=== PATIENT | female | born 1935 | race Caucasian/White ===

== ENCOUNTER 2016-11-09 15:14 | Emergency (ER) | payer MEDICARE, BC ==
[2016-11-09] MEDS ORDERED: Sodium Chloride 0.9% 10 ML Syringe FLUSH PRN (15:50)
[2016-11-09] MEDS ORDERED: Ondansetron 4 MG/2 ML SDV IVPUSH ONE (15:51)
[2016-11-09] MEDS ORDERED: HYDROmorphone 0.5 MG/0.5 ML Syringe IVPUSH ONE (15:56)
--- NOTE | 2016-11-09 15:56 | EDM.PDOC ---
ED HPI GI/ABDOMINAL - General Chief Complaint: Genitourinary Problem Stated Complaint: POSS UTI Time Seen by Provider: 11/09/16 15:33 Source of Information: Reports: Patient History Limitations: Reports: No limitations - History of Present Illness INITIAL COMMENTS - FREE TEXT/NARRATIVE: The patient presents with dysuria and urinary frequency for 2 days. She also has some abdominal pain. She did not get much rest the past couple of days. She has some nausea with it. She has no fever or chills. She has no chest pain , shortness of breath or diarrhea. Timing/Duration: Reports: Day(s): (2) Location: flank (right) Quality: Reports: burning Severity: moderate Context: Denies: sick contact, bad/questionable food, out of country travel, recent surgery, recent trauma, lifting, activity/exercise Associated Symptoms (-Female): Reports: nausea/vomiting. Denies: chest pain, back pain, shoulder pain, diarrhea, fever/chills, loss of appetite - Related Data Allergies/ADRs: Allergies Allergy/AdvReac Type Severity Reaction Status Date / Time No Known Drug Allergies Allergy Other Verified 10/23/15 11:04 amoxicillin AdvReac Nausea and Verified 10/19/15 15:26 Vomiting amoxicillin trihydrate AdvReac Nausea and Verified 10/20/15 07:06 [From Augmentin] Vomiting ciprofloxacin AdvReac Nausea and Verified 10/20/15 07:06 Vomiting potassium clavulanate AdvReac Nausea and Verified 10/20/15 07:06 [From Augmentin] Vomiting Sulfa (Sulfonamide AdvReac Nausea and Verified 10/20/15 07:06 Antibiotics) Vomiting Home Meds: Home Meds Docusate Sodium [Colace] 200 mg PO BID 09/12/14 [History] Gabapentin 600 mg PO BID 09/12/14 [History] Metoprolol Succinate [Toprol XL] 25 mg PO DAILY 09/12/14 [History] Polyethylene Glycol 3350 [MiraLAX] 17 gm PO BID PRN 02/18/15 [History] traMADol [Ultram] 50 mg PO Q6H PRN 04/29/15 [History] Cholecalciferol (Vitamin D3) [Vitamin D3] 1,000 unit PO DAILY 08/10/15 [History] Simvastatin 20 mg PO BEDTIME 08/10/15 [History] Valsartan [Diovan] 320 mg PO DAILY 08/10/15 [History] Vit C/Vit E Ac/Lut/Mineral 1 [Prosight with Lutein] 1 each PO DAILY 08/10/15 [ History] amLODIPine Besylate [Amlodipine Besylate] 10 mg PO DAILY 08/10/15 [History] metFORMIN [Glucophage] 500 mg PO DAILY 08/10/15 [History] traZODone 200 mg PO DAILY 08/10/15 [History] Aspirin 81 mg PO DAILY 10/19/15 [History] Levothyroxine [Synthroid] 50 mcg PO DAILY 10/19/15 [History] Dicyclomine HCl [Bentyl] 20 mg PO Q6HR 10/20/15 [History] Nitrofurantoin [place]/Macrocryst [Macrobid] 100 mg PO BID #10 cap 11/09/16 [Rx] Past Medical History HEENT History: Reports: None Cardiovascular History: Reports: High cholesterol, Hypertension Respiratory History: Reports: PE Gastrointestinal History: Reports: Chronic constipation, Diverticulosis, GERD, Hemorrhoids, Irritable bowel syndrome Other Gastrointestinal History: gastric ulcer, abdominal pain, lapartomy Other Genitourinary History: cystitis [employer] History: Reports: Musculoskeletal History: Reports: Osteoarthritis Psychiatric History: Reports: Depression Endocrine/Metabolic History: Reports: Diabetes, type II, Hypothyroidism, Obesity /BMI 30+ Hematologic History: Reports: Anemia Dermatologic History: Reports: Seborrheic dermatitis - Infectious Disease History Infectious Disease History: Reports: Rheumatic Fever - Past Surgical History HEENT Surgical History: Reports: Tonsillectomy Other Musculoskeletal Surgeries/Procedures:: osteoarthritis to L knee, R knee pain, R knee arthroscopy, R total knee, L total knee, hip surgery Social & Family History - Family History Cardiac: Reports: [place] Other Cardiac Family History: Mother OBGYN: Reports: Endocrine/Metabolic: Reports: Diabetes, type II Oncologic: Reports: Colon - Tobacco Use Smoking Status *Q: Never Smoker Second Hand Smoke Exposure: No - Caffeine Use Caffeine Use: Reports: Coffee, Soda, Tea Other Caffeine Use: coffee in the morning - Alcohol Use Days Per Week of Alcohol Use: 0 Number of Drinks Per Day: 0 Total Drinks Per Week: 0 - Recreational Drug Use Recreational Drug Use: No Drug Use in Last 12 Months: No ED ROS GENERAL - Review of Systems Review Of Systems: See Below Constitutional: Reports: no symptoms HEENT: Reports: No symptoms Respiratory: Reports: No Symptoms Cardiovascular: Reports: No symptoms Endocrine: Reports: no symptoms GI/Abdominal: Reports: Abdominal pain, Nausea. Denies: Vomiting : Reports: dysuria, flank pain (right), frequency Musculoskeletal: Reports: no symptoms Skin: Reports: no symptoms Neurological: Reports: No Symptoms ED EXAM, GI/ABD - Physical Exam Exam: See Below Exam Limited By: No limitations General Appearance: alert, no apparent distress Ears: normal external exam Nose: normal inspection Head: atraumatic, normocephalic Neck: normal inspection Respiratory/Chest: no respiratory distress, lungs clear, normal breath sounds Cardiovascular: regular rate, rhythm, no edema, systolic murmur GI/Abdominal: normal bowel sounds, soft, tenderness (Mild to moderate pain to the right abdomen) Back Exam: normal inspection Extremities: normal inspection Course - Vital Signs Last Recorded V/S: Last Vital Signs Temp 98.0 F 11/09/16 15:22 Pulse 69 11/09/16 16:21 Resp 16 11/09/16 16:21 BP 207/81 H 11/09/16 16:21 Pulse Ox 92 L 11/09/16 16:21 - Orders/Labs/Meds Orders: Active Orders 24 hr Category Date Time Status Peripheral IV Care [RC] . DIRECTED Care 11/09/16 15:50 Active CULTURE URINE [RM] Stat Lab 11/09/16 17:07 Uncollected Sodium Chloride 0.9% [Normal Saline] 1,000 ml Med 11/09/16 16:00 Active IV ASDIRECTED Sodium Chloride 0.9% [Saline Flush] Med 11/09/16 15:50 Active 10 ml FLUSH ASDIRECTED PRN Peripheral IV Insertion Adult [OM.PC] Stat Oth 11/09/16 15:50 Ordered Medication Orders Sodium Chloride (Normal Saline) 1,000 mls @ 100 mls/hr IV ASDIRECTED SHREYA Last Admin: 11/09/16 16:07 Dose: 100 mls/hr Sodium Chloride (Saline Flush) 10 ml FLUSH ASDIRECTED PRN PRN Reason: Keep Vein Open Last Admin: 11/09/16 16:10 Dose: 10 ml Labs: Laboratory Tests 11/09/16 11/09/16 11/09/16 Range/Units 15:41 16:00 16:00 WBC 6.28 (3.98-10.04) K/mm3 RBC 4.26 (3.98-5.22) M/mm3 Hgb 12.9 (11.2-15.7) gm/L Hct 41.5 (34.1-44.9) % MCV 97.4 H (79.4-94.8) fl MCH 30.3 (25.6-32.2) pg MCHC 31.1 L (32.2-35.5) g/dl RDW Std Deviation 48.6 H (36.4-46.3) fL Plt Count 218 (182-369) K/mm3 MPV 9.9 (9.4-12.3) fl Neut % (Auto) 71.9 H (34.0-71.1) % Lymph % (Auto) 18.0 L (19.3-51.7) % [place] % (Auto) 7.6 (4.7-12.5) % Eos % (Auto) 1.9 (0.7-5.8) Baso % (Auto) 0.3 (0.1-1.2) % Neut # (Auto) 4.51 (1.56-6.13) K/mm3 Lymph # (Auto) 1.13 L (1.18-3.74) K/mm3 [place] # (Auto) 0.48 H (0.24-0.36) K/mm3 Eos # (Auto) 0.12 (0.04-0.36) K/mm3 Baso # (Auto) 0.02 (0.01-0.08) K/mm3 Sodium 139 (136-145) mEq/L Potassium 4.1 (3.5-5.1) mEq/L Chloride 103 (98-107) mEq/L Carbon Dioxide 30 (21-32) mEq/L Anion Gap 10.1 (5-15) BUN 11 (7-18) mg/dL Creatinine 1.0 (0.55-1.02) mg/dL Est Cr Clr Drug Dosing 30.62 mL/min Estimated GFR (MDRD) 53 (>60) mL/min BUN/Creatinine Ratio 11.0 L (14-18) Glucose 152 H (83-115) mg/dL Calcium 8.9 (8.5-10.1) mg/dL Total Bilirubin 0.6 (0.2-1.0) mg/dL AST 16 (15-37) U/L ALT 13 L (14-59) U/L Alkaline Phosphatase 98 (46-116) U/L Total Protein 6.7 (6.4-8.2) g/dl Albumin 3.5 (3.4-5.0) g/dl Globulin 3.2 gm/dL Albumin/Globulin Ratio 1.1 (1-2) Lipase 132 (73-393) U/L Urine Color Todd H (Yellow) Urine Appearance Clear (Clear) Urine pH 7.0 (5.0-8.0) Ur Specific [place] 1.020 (1.005-1.030) Urine Protein 3+ H (Negative) Urine Glucose (UA) Trace H (Negative) Urine Ketones Negative (Negative) Urine Occult Blood Negative (Negative) Urine Nitrite Positive H (Negative) Urine Bilirubin Negative (Negative) Urine Urobilinogen 1.0 (0.2-1.0) Ur Leukocyte Esterase Negative (Negative) Urine RBC 0-5 (0-5) /hpf Urine WBC 0-5 (0-5) /hpf Ur Epithelial Cells Not Reportable Ur Squamous Epith Cells 0-5 (0-5) /hpf Urine Bacteria Few (FEW) /hpf Urine Mucus Not seen (FEW) /hpf Meds: Medications Generic Name Dose Route Start Last Admin Trade Name Freq PRN Reason Stop Dose Admin Sodium Chloride 1,000 mls @ 100 mls/hr 11/09/16 16:00 11/09/16 16:07 Normal Saline IV 100 mls/hr ASDIRECTED SHREYA Administration Sodium Chloride 10 ml 11/09/16 15:50 11/09/16 16:10 Saline Flush FLUSH 10 ml ASDIRECTED PRN Administration Keep Vein Open Discontinued Medications Generic Name Dose Route Start Last Admin Trade Name Freq PRN Reason Stop Dose Admin Hydromorphone HCl 0.5 mg 11/09/16 15:56 11/09/16 16:11 Dilaudid IVPUSH 11/09/16 15:57 0.5 mg ONETIME ONE Administration Metoprolol Tartrate 5 mg 11/09/16 15:57 11/09/16 16:13 Lopressor IVPUSH 11/09/16 15:58 5 mg ONETIME ONE Administration Ondansetron HCl 4 mg 11/09/16 15:51 04/29/17 16:08 Zofran IVPUSH 11/09/16 15:52 4 mg ONETIME ONE Administration - Re-Assessments/Exams Free Text/Narrative Re-Assessment/Exam: 11/09/16 15:56 I ordered an IV NS at 100mL/hr, zofran 4mg IV, labs and UA. 11/09/16 17:07 Her BP was high so I ordered some lopressor 5mg IV and some dilaudid 0.5mg IV for the pain. Her CBC and CMP look good. Her UA has nitrite and bacteria. I will get a culture. She has been taking pyridium at home. I will put her on macrobid 2 times per day for 5 days. Departure - Departure Time of Disposition: 17:10 Disposition: Home, Self-Care 01 Condition: good Clinical Impression: UTI, Urinary tract infectious disease Hypertension Qualifiers: Hypertension type: essential hypertension Qualified Code(s): I10 - Essential ( primary) hypertension Prescriptions: Nitrofurantoin [place]/Macrocryst [Macrobid] 100 mg PO BID #10 cap Referrals: Germain Schaeffer MD [Primary Care Provider] - 1 Week Forms: ED Department Discharge Additional Instructions: Take the macrobid twice per day for 5 days. Take your other medication as prescribed. Please return if you are worse. - My Orders Last 24 Hours: My Active Orders 11/09/16 15:50 Peripheral IV Care [RC] . DIRECTED Sodium Chloride 0.9% [Saline Flush] 10 ml FLUSH ASDIRECTED PRN Peripheral IV Insertion Adult [OM.PC] Stat 11/09/16 16:00 Sodium Chloride 0.9% [Normal Saline] 1,000 ml IV ASDIRECTED 11/09/16 17:07 CULTURE URINE [RM] Stat - Assessment/Plan Last 24 Hours: My Active Orders 11/09/16 15:50 Peripheral IV Care [RC] . DIRECTED Sodium Chloride 0.9% [Saline Flush] 10 ml FLUSH ASDIRECTED PRN Peripheral IV Insertion Adult [OM.PC] Stat 11/09/16 16:00 Sodium Chloride 0.9% [Normal Saline] 1,000 ml IV ASDIRECTED 11/09/16 17:07 CULTURE URINE [RM] Stat
[2016-11-09] MEDS ORDERED: Metoprolol Tartrate 5 MG/5 ML SDV IVPUSH ONE (15:57)
[2016-11-09] MEDS ORDERED: Sodium Chloride 0.9% 1,000 ML IV SCH (16:00)
[2016-11-09 16:51] VITALS: BP 207/81
== END 2016-11-09 17:46 | disposition home or self-care (01) ==
LOC: JD.ED 15:14
DX: N39.0 Urinary tract infection, site not specified (principal); I10 Essential (primary) hypertension; E78.00 Pure hypercholesterolemia, unspecified; K21.9 Gastro-esophageal reflux disease without esophagitis; M19.90 Unspecified osteoarthritis, unspecified site; F32.9 Major depressive disorder, single episode, unspecified; E11.9 Type 2 diabetes mellitus without complications; E03.9 Hypothyroidism, unspecified; E66.9 Obesity, unspecified; D64.9 Anemia, unspecified; Z98.890 Other specified postprocedural states; Z88.1 Allergy status to other antibiotic agents; Z88.8 Allergy status to other drugs, medicaments and biological substances; Z88.2 Allergy status to sulfonamides; Z79.899 Other long term (current) drug therapy; Z79.84 Long term (current) use of oral hypoglycemic drugs; Z79.82 Long term (current) use of aspirin
CPT/HCPCS: 36415; 80053; 81001; 83690; 85025; 87086; 96361; 96374; 96375; 99284; J1170; J2405; J7040; J7050; P9612; J3490

== ENCOUNTER 2016-12-25 14:29 | Inpatient (IN) | payer MEDICARE, BC ==
[2016-12-25] MEDS ORDERED: Sodium Chloride 0.9% 10 ML Syringe FLUSH PRN (15:41)
[2016-12-25] MEDS ORDERED: Metoprolol Tartrate 5 MG/5 ML SDV IVPUSH ONE (15:42)
--- NOTE | 2016-12-25 15:42 | EDM.PDOC ---
ED HPI GENERAL MEDICAL PROBLEM - General Chief Complaint: Genitourinary Problem Stated Complaint: CONSTANT URINATION Time Seen by Provider: 12/25/16 15:03 Source of Information: Reports: Patient History Limitations: Reports: No Limitations - History of Present Illness INITIAL COMMENTS - FREE TEXT/NARRATIVE: 81-year-old female presents for evaluation and treatment of dysuria and increased urinary frequency. She reports that the symptoms have been going on for the last few days. She denies any fevers or vomiting. Reports some nausea. She denies any abdominal pain or flank pain. Patient reports some chronic back pain that is worse after prolonged standing. Upon triage patient was found to be hypertensive with a systolic over the 220s. Patient reports that she has not taken her blood pressure medications today. She was also found to be hypoxic with oxygen sats ranging in the upper 70s to 90 on room air. Patient reports that she is normally on oxygen approximately 3 or 4 L at night but none during the day. She states she has been feeling more short of breath lately. Feels that the shortness of breath is worse with activity. She has also noticed swelling in her lower legs and increase in her weight. Reports a minor nonproductive cough. Denies any chest pain. She is also complaining of a decreased appetite. Lower Abdomen Pain Score (Numeric/FACES): 10 - Related Data Allergies Allergy/AdvReac Type Severity Reaction Status Date / Time amoxicillin AdvReac Nausea and Verified 12/25/16 14:47 Vomiting amoxicillin trihydrate AdvReac Nausea and Verified 12/25/16 14:47 [From Augmentin] Vomiting ciprofloxacin AdvReac Nausea and Verified 12/25/16 14:47 Vomiting potassium clavulanate AdvReac Nausea and Verified 12/25/16 14:47 [From Augmentin] Vomiting Sulfa (Sulfonamide AdvReac Nausea and Verified 12/25/16 14:47 Antibiotics) Vomiting Home Meds: Home Meds Docusate Sodium [Colace] 200 mg PO BID 09/12/14 [History] Gabapentin 600 mg PO BID 09/12/14 [History] Metoprolol Succinate [Toprol XL] 25 mg PO DAILY 09/12/14 [History] Polyethylene Glycol 3350 [MiraLAX] 17 gm PO BID PRN 02/18/15 [History] traMADol [Ultram] 50 mg PO Q6H PRN 04/29/15 [History] Cholecalciferol (Vitamin D3) [Vitamin D3] 1,000 unit PO DAILY 08/10/15 [History] Simvastatin 20 mg PO BEDTIME 08/10/15 [History] Valsartan [Diovan] 320 mg PO DAILY 08/10/15 [History] Vit C/Vit E Ac/Lut/Mineral 1 [Prosight with Lutein] 1 each PO DAILY 08/10/15 [ History] amLODIPine Besylate [Amlodipine Besylate] 10 mg PO DAILY 08/10/15 [History] metFORMIN [Glucophage] 500 mg PO DAILY 08/10/15 [History] traZODone 200 mg PO DAILY 08/10/15 [History] Aspirin 81 mg PO DAILY 10/19/15 [History] Levothyroxine [Synthroid] 50 mcg PO DAILY 10/19/15 [History] Dicyclomine HCl [Bentyl] 20 mg PO Q6HR 10/20/15 [History] Nitrofurantoin [place]/Macrocryst [Macrobid] 100 mg PO BID #10 cap 11/09/16 [Rx] Past Medical History HEENT History: Reports: None Cardiovascular History: Reports: High Cholesterol, Hypertension Respiratory History: Reports: PE Gastrointestinal History: Reports: Chronic Constipation, Diverticulosis, GERD, Hemorrhoids, Irritable Bowel Syndrome Other Gastrointestinal History: gastric ulcer, abdominal pain, lapartomy Other Genitourinary History: cystitis 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: Musculoskeletal History: Reports: Osteoarthritis Psychiatric History: Reports: Depression Endocrine/Metabolic History: Reports: Diabetes, Type II, Hypothyroidism, Obesity /BMI 30+ Hematologic History: Reports: Anemia Dermatologic History: Reports: Seborrheic Dermatitis - Infectious Disease History Infectious Disease History: Reports: Rheumatic Fever - Past Surgical History HEENT Surgical History: Reports: Tonsillectomy Other Musculoskeletal Surgeries/Procedures:: osteoarthritis to L knee, R knee pain, R knee arthroscopy, R total knee, L total knee, hip surgery Social & Family History - Family History Cardiac: Reports: MA Other Cardiac Family History: Mother OBGYN: Reports: Endocrine/Metabolic: Reports: Diabetes, type II Oncologic: Reports: Colon - Tobacco Use Smoking Status *Q: Never Smoker Second Hand Smoke Exposure: No - Caffeine Use Caffeine Use: Reports: Soda Other Caffeine Use: coffee in the morning - Alcohol Use Days Per Week of Alcohol Use: 0 Number of Drinks Per Day: 0 Total Drinks Per Week: 0 - Recreational Drug Use Recreational Drug Use: No Drug Use in Last 12 Months: No ED ROS GENERAL - Review of Systems Review Of Systems: See Below Constitutional: Reports: Decreased Appetite, Weight Gain. Denies: Fever Respiratory: Reports: Shortness of Breath, Cough Cardiovascular: Reports: Edema. Denies: Chest Pain GI/Abdominal: Reports: Nausea. Denies: Abdominal Pain, Vomiting : Reports: Dysuria, Frequency. Denies: Flank Pain, Hematuria Musculoskeletal: Reports: Back Pain (chronic, no change) ED EXAM, RENAL/ - Physical Exam Exam: See Below Exam Limited By: No Limitations General Appearance: Alert, WD/WN, No Apparent Distress, Obese Ears: Normal External Exam Nose: Normal Inspection Throat/Mouth: Normal Inspection, Normal Voice, No Airway Compromise, Perioral Cyanosis Respiratory/Chest: Respiratory Distress (tachypnea), Crackles (bilateral lung bases) Cardiovascular: Normal Peripheral Pulses, Regular Rate, Rhythm, No Murmur, Other (2+ nonpitting edema) Back Exam: Normal Inspection. No: CVA Tenderness (L), CVA Tenderness (R) Neurological: Alert, Oriented, Normal Cognition Psychiatric: Normal Affect, Normal Mood Skin Exam: Warm, Dry, Normal Color EKG INTERPRETATION EKG Date: 12/25/16 Time: 16:55 Rhythm: NSR Rate (Beats/Min): 62 Furlong: Normal P-Wave: Present QRS: Normal ST-T: Normal QT: Prolonged EKG Interpretation Comments: NSR at 62 bpm. first degree AV block. No acute St segment changes. Prolonged QTc. Reviewed by myself and Dr. Khoury. Course - Vital Signs Last Recorded V/S: Last Vital Signs Temp 37.3 C 12/26/16 08:00 Pulse 74 12/26/16 11:00 Resp 16 12/26/16 08:00 BP 126/57 L 12/26/16 11:00 Pulse Ox 94 L 12/26/16 08:00 - Orders/Labs/Meds Orders: Active Orders 24 hr Category Date Time Status CULTURE URINE [RM] Stat Lab 12/25/16 15:50 Results Sodium Chloride 0.9% [Saline Flush] Med 12/25/16 15:41 Active 10 ml FLUSH ASDIRECTED PRN Peripheral IV Insertion Adult [OM.PC] Routine Oth 12/25/16 15:42 Ordered Medication Orders Acetaminophen (Tylenol) 650 mg PO Q4H PRN PRN Reason: Pain (Mild 1-3)/fever Last Admin: 12/25/16 21:27 Dose: 650 mg Hydrocodone Bitart/Acetaminophen ([place] 325-5 Mg) 1 tab PO Q4H PRN PRN Reason: Pain (moderate 4-6) Albuterol/Ipratropium (Duoneb 3.0-0.5 Mg/3 Ml) 3 ml NEB Q4H PRN PRN Reason: Shortness Of Breath/wheezing Amlodipine Besylate (Norvasc) 10 mg PO DAILY [facility] Last Admin: 12/26/16 10:10 Dose: Not Given Aspirin (Aspirin) 81 mg PO DAILY [facility] Last Admin: 12/26/16 09:58 Dose: 81 mg Bisacodyl (Dulcolax) 5 mg PO DAILY PRN PRN Reason: Constipation Cholecalciferol (Vitamin D3) 1,000 units PO DAILY [facility] Last Admin: 12/26/16 10:10 Dose: Not Given Dextrose/Water (Dextrose 50% In Water) 50 ml IVPUSH ASDIRECTED PRN PRN Reason: Hypoglycemia Docusate Sodium (Colace) 100 mg PO BID PRN PRN Reason: Constipation Docusate Sodium (Colace) 200 mg PO BID [facility] Last Admin: 12/26/16 10:09 Dose: Admin: 12/25/16 20:22 Dose: 200 mg Gabapentin (Neurontin) 600 mg PO BID [facility] Last Admin: 12/26/16 10:09 Dose: Admin: 12/25/16 20:22 Dose: 600 mg Heparin Sodium (Porcine) (Heparin Sodium) 5,000 units SUBCUT Q8H [facility] Last Admin: 12/26/16 10:44 Dose: 5,000 units Hydralazine HCl (Apresoline) 10 mg IVPUSH Q4H PRN PRN Reason: Hypertension Last Admin: 12/25/16 19:29 Dose: 10 mg Promethazine HCl 12.5 mg/ (Sodium Chloride) 50.5 mls @ 100 mls/hr IV Q6H PRN PRN Reason: Nausea/Vomiting Furosemide 100 mg/ Sodium (Chloride) 100 mls @ 5 mls/hr IV TITRATE [facility] PRN Reason: Protocol Last Admin: 12/25/16 20:07 Dose: 5 mls/hr Ceftriaxone Sodium 1 gm/ (Sodium Chloride) 100 mls @ 200 mls/hr IV Q24H SHREYA Last Admin: 12/26/16 09:59 Dose: 200 mls/hr Dopamine HCl/Dextrose (Dopamine In D5w 400 Mg/250 Ml) 400 mg in 250 mls @ 7.892 mls/hr IV TITRATE SHREYA; 2 MCG/KG/MIN PRN Reason: Protocol Last Titration: 12/26/16 10:50 Dose: 5 mcg/kg/min, 19.729 mls/hr Titration: 12/26/16 09:45 Dose: 7 mcg/kg/min, 27.621 mls/hr Titration: 12/26/16 08:49 Dose: 10 mcg/kg/min, 39.459 mls/hr Titration: 12/26/16 08:04 Dose: 7 mcg/kg/min, 27.621 mls/hr Titration: 12/26/16 06:50 Dose: 4 mcg/kg/min, 15.783 mls/hr Titration: 12/26/16 05:51 Dose: 2 mcg/kg/min, 7.892 mls/hr Admin: 12/26/16 05:24 Dose: 5 mcg/kg/min, 19.729 mls/hr Insulin Aspart (Novolog) 0 unit SUBCUT BID SHREYA PRN Reason: Protocol Last Admin: 12/26/16 10:44 Dose: 4 units Admin: 12/25/16 22:36 Dose: 2 units Admin: 12/25/16 19:48 Dose: Levothyroxine Sodium (Synthroid) 50 mcg PO ACBRK [facility] Last Admin: 12/26/16 05:45 Dose: Not Given Lorazepam (Ativan) 0.5 mg IV Q6H PRN PRN Reason: Anxiety Losartan Potassium (Cozaar) 150 mg PO DAILY [facility] Last Admin: 12/26/16 10:09 Dose: Not Given Magnesium Sulfate (Pharmacy To Dose - Magnesium Replacement) 1 dose .XX ASDIRECTED [facility] Metformin HCl (Glucophage) 500 mg PO WITHBREAKFAST [facility] Last Admin: 12/26/16 06:44 Dose: Not Given Metoprolol Succinate (Toprol Xl) 25 mg PO DAILY [facility] Last Admin: 12/26/16 10:10 Dose: Not Given Metoprolol Tartrate (Lopressor) 5 mg IVPUSH Q4H PRN PRN Reason: Tachycardia Morphine Sulfate (Morphine) 0.5 mg IVPUSH Q4H PRN PRN Reason: Pain Stop: 12/30/16 18:00 Ondansetron HCl (Zofran) 4 mg IV Q6H PRN PRN Reason: Nausea/Vomiting Polyethylene Glycol (Miralax) 17 gm PO DAILY PRN PRN Reason: Constipation Polyethylene Glycol (Miralax) 17 gm PO BID PRN PRN Reason: Constipation Potassium Chloride (Pharmacy To Dose - Potassium Replacement) 1 dose .XX ASDIRECTED SHREYA Senna/Docusate Sodium (Senna Plus) 1 tab PO BID PRN PRN Reason: Constipation Simvastatin (Zocor) 20 mg PO BEDTIME [facility] Last Admin: 12/25/16 20:23 Dose: 20 mg Sodium Chloride (Saline Flush) 10 ml FLUSH ASDIRECTED PRN PRN Reason: Keep Vein Open Last Admin: 12/25/16 16:04 Dose: 10 ml Tramadol HCl (Ultram) 50 mg PO Q6H PRN PRN Reason: Pain Trazodone HCl (Trazodone) 200 mg PO BEDTIME [facility] Last Admin: 12/25/16 20:22 Dose: 200 mg Vit A/Vit C/Vit E/Selen/Cu/Zn/Lutei (Icaps Mv) 1 tab PO DAILY [facility] Last Admin: 12/26/16 10:09 Dose: Not Given Labs: Laboratory Tests 12/25/16 12/25/16 12/25/16 Range/Units 15:45 15:45 15:45 WBC 5.60 (3.98-10.04) K/mm3 RBC 4.16 (3.98-5.22) M/mm3 Hgb 12.1 (11.2-15.7) gm/L Hct 39.2 (34.1-44.9) % MCV 94.2 (79.4-94.8) fl MCH 29.1 (25.6-32.2) pg MCHC 30.9 L (32.2-35.5) g/dl RDW Std Deviation 52.1 H (36.4-46.3) fL Plt Count 213 (182-369) K/mm3 MPV 10.3 (9.4-12.3) fl Neutrophils % (Manual) 67 H (40-60) % Band Neutrophils % 0 (0-10) % Lymphocytes % (Manual) 22 (20-40) % Atypical Lymphs % 1 % Monocytes % (Manual) 8 (2-10) % Eosinophils % (Manual) 0 L (0.7-5.8) % Basophils % (Manual) 2 H (0.1-1.2) Toxic Granulation 1+ slight Platelet Estimate Adequate Plt Morphology Comment Normal Anisocytosis 1+ slight Stomatocytes Moderate Schistocytes Few RBC Morph Comment Not Reportable Sodium 143 (136-145) mEq/L Potassium 3.7 (3.5-5.1) mEq/L Chloride 103 (98-107) mEq/L Carbon Dioxide 31 (21-32) mEq/L Anion Gap 12.7 (5-15) BUN 11 (7-18) mg/dL Creatinine 1.1 H (0.55-1.02) mg/dL Est Cr Clr Drug Dosing 27.83 mL/min Estimated GFR (MDRD) 47 (>60) mL/min BUN/Creatinine Ratio 10.0 L (14-18) Glucose 134 H (83-115) mg/dL Calcium 9.1 (8.5-10.1) mg/dL Total Bilirubin 0.8 (0.2-1.0) mg/dL AST 14 L (15-37) U/L ALT 18 (14-59) U/L Alkaline Phosphatase 84 (46-116) U/L B-Natriuretic Peptide 1231 H (0-100) pg/mL Total Protein 6.9 (6.4-8.2) g/dl Albumin 3.6 (3.4-5.0) g/dl Globulin 3.3 gm/dL Albumin/Globulin Ratio 1.1 (1-2) Urine Color (Yellow) Urine Appearance (Clear) Urine pH (5.0-8.0) Ur Specific [place] (1.005-1.030) Urine Protein (Negative) Urine Glucose (UA) (Negative) Urine Ketones (Negative) Urine Occult Blood (Negative) Urine Nitrite (Negative) Urine Bilirubin (Negative) Urine Urobilinogen (0.2-1.0) Ur Leukocyte Esterase (Negative) Urine RBC (0-5) /hpf Urine WBC (0-5) /hpf Urine WBC Clumps (NOT SEEN) /hpf Ur Epithelial Cells (0-5) /hpf Urine Bacteria (FEW) /hpf Urine Mucus (FEW) /hpf Urine Yeast (NOT SEEN) 12/25/16 Range/Units 15:55 WBC (3.98-10.04) K/mm3 RBC (3.98-5.22) M/mm3 Hgb (11.2-15.7) gm/L Hct (34.1-44.9) % MCV (79.4-94.8) fl MCH (25.6-32.2) pg MCHC (32.2-35.5) g/dl RDW Std Deviation (36.4-46.3) fL Plt Count (182-369) K/mm3 MPV (9.4-12.3) fl Neutrophils % (Manual) (40-60) % Band Neutrophils % (0-10) % Lymphocytes % (Manual) (20-40) % Atypical Lymphs % % Monocytes % (Manual) (2-10) % Eosinophils % (Manual) (0.7-5.8) % Basophils % (Manual) (0.1-1.2) Toxic Granulation Platelet Estimate Plt Morphology Comment Anisocytosis Stomatocytes Schistocytes RBC Morph Comment Sodium (136-145) mEq/L Potassium (3.5-5.1) mEq/L Chloride (98-107) mEq/L Carbon Dioxide (21-32) mEq/L Anion Gap (5-15) BUN (7-18) mg/dL Creatinine (0.55-1.02) mg/dL Est Cr Clr Drug Dosing mL/min Estimated GFR (MDRD) (>60) mL/min BUN/Creatinine Ratio (14-18) Glucose (83-115) mg/dL Calcium (8.5-10.1) mg/dL Total Bilirubin (0.2-1.0) mg/dL AST (15-37) U/L ALT (14-59) U/L Alkaline Phosphatase (46-116) U/L B-Natriuretic Peptide (0-100) pg/mL Total Protein (6.4-8.2) g/dl Albumin (3.4-5.0) g/dl Globulin gm/dL Albumin/Globulin Ratio (1-2) Urine Color Dark yellow (Yellow) Urine Appearance Clear (Clear) Urine pH 7.0 (5.0-8.0) Ur Specific [place] 1.020 (1.005-1.030) Urine Protein 2+ H (Negative) Urine Glucose (UA) Negative (Negative) Urine Ketones Negative (Negative) Urine Occult Blood Negative (Negative) Urine Nitrite Positive H (Negative) Urine Bilirubin Negative (Negative) Urine Urobilinogen 1.0 (0.2-1.0) Ur Leukocyte Esterase Negative (Negative) Urine RBC Not seen (0-5) /hpf Urine WBC Not seen (0-5) /hpf Urine WBC Clumps Not seen (NOT SEEN) /hpf Ur Epithelial Cells 0-5 (0-5) /hpf Urine Bacteria Few (FEW) /hpf Urine Mucus Not seen (FEW) /hpf Urine Yeast Not seen (NOT SEEN) Meds: Medications Generic Name Dose Route Start Last Admin Trade Name Freq PRN Reason Stop Dose Admin Acetaminophen 650 mg 12/25/16 17:57 12/25/16 21:27 Tylenol PO 650 mg Q4H PRN Administration Pain (Mild 1-3)/fever Hydrocodone Bitart/Acetaminophen 1 tab 12/25/16 17:57 [place] 325-5 Mg PO Q4H PRN Pain (moderate 4-6) Albuterol/Ipratropium 3 ml 12/25/16 18:00 Duoneb 3.0-0.5 Mg/3 Ml NEB Q4H PRN Shortness Of Breath/wheezing Amlodipine Besylate 10 mg 12/26/16 09:00 12/26/16 10:10 Norvasc PO Not Given DAILY SHREYA Aspirin 81 mg 12/26/16 09:00 12/26/16 09:58 Aspirin PO 81 mg DAILY SHREYA Administration Bisacodyl 5 mg 12/25/16 18:00 Dulcolax PO DAILY PRN Constipation Cholecalciferol 1,000 units 12/26/16 09:00 12/26/16 10:10 Vitamin D3 PO Not Given DAILY [facility] Dextrose/Water 50 ml 12/25/16 18:10 Dextrose 50% In Water IVPUSH ASDIRECTED PRN Hypoglycemia Docusate Sodium 100 mg 12/25/16 18:00 Colace PO BID PRN Constipation Docusate Sodium 200 mg 12/25/16 21:00 12/26/16 10:09 Colace PO Not Given BID [facility] Gabapentin 600 mg 12/25/16 21:00 12/26/16 10:09 Neurontin PO Not Given BID SHREYA Heparin Sodium (Porcine) 5,000 units 12/26/16 10:00 12/26/16 10:44 Heparin Sodium SUBCUT 5,000 units Q8H SHREYA Administration Hydralazine HCl 10 mg 12/25/16 18:12 12/25/16 19:29 Apresoline IVPUSH 10 mg Q4H PRN Administration Hypertension Promethazine HCl 12.5 mg/ 50.5 mls @ 100 mls/hr 12/25/16 18:00 Sodium Chloride IV Q6H PRN Nausea/Vomiting Furosemide 100 mg/ Sodium 100 mls @ 5 mls/hr 12/25/16 18:15 12/25/16 20:07 Chloride IV 5 mls/hr TITRATE SHREYA Administration Protocol Ceftriaxone Sodium 1 gm/ 100 mls @ 200 mls/hr 12/26/16 09:00 12/26/16 09:59 Sodium Chloride IV 200 mls/hr Q24H SHREYA Administration Dopamine HCl/Dextrose 400 mg in 250 mls @ 7.892 mls/hr 12/26/16 02:15 10:50 Dopamine In D5w 400 Mg/250 Ml IV 5 mcg/kg/min TITRATE SHREYA 19.729 mls/hr Protocol Titration 2 MCG/KG/MIN Insulin Aspart 0 unit 12/25/16 18:15 12/26/16 10:44 Novolog SUBCUT 4 units BID [facility] Administration Protocol Levothyroxine Sodium 50 mcg 12/26/16 06:00 12/26/16 05:45 Synthroid PO Not Given ACBRK [facility] Lorazepam 0.5 mg 12/25/16 18:00 Ativan IV Q6H PRN Anxiety Losartan Potassium 150 mg 12/26/16 09:00 12/26/16 10:09 Cozaar PO Not Given DAILY [facility] Magnesium Sulfate 1 dose 12/25/16 18:15 Pharmacy To Dose - Magnesium Replacement .XX ASDIRECTED [facility] Metformin HCl 500 mg 12/26/16 07:00 12/26/16 06:44 Glucophage PO Not Given WITHBREAKFAST [facility] Metoprolol Succinate 25 mg 12/26/16 09:00 12/26/16 10:10 Toprol Xl PO Not Given DAILY [facility] Metoprolol Tartrate 5 mg 12/25/16 18:12 Lopressor IVPUSH Q4H PRN Tachycardia Morphine Sulfate 0.5 mg 12/26/16 09:35 Morphine IVPUSH 12/30/16 18:00 Q4H PRN Pain Ondansetron HCl 4 mg 12/25/16 18:00 Zofran IV Q6H PRN Nausea/Vomiting Polyethylene Glycol 17 gm 12/25/16 18:00 Miralax PO DAILY PRN Constipation Polyethylene Glycol 17 gm 12/25/16 18:04 Miralax PO BID PRN Constipation Potassium Chloride 1 dose 12/25/16 18:15 Pharmacy To Dose - Potassium Replacement .XX ASDIRECTED SHREYA Senna/Docusate Sodium 1 tab 12/25/16 18:00 Senna Plus PO BID PRN Constipation Simvastatin 20 mg 12/25/16 21:00 12/25/16 20:23 Zocor PO 20 mg BEDTIME SHREYA Administration Sodium Chloride 10 ml 12/25/16 15:41 12/25/16 16:04 Saline Flush FLUSH 10 ml ASDIRECTED PRN Administration Keep Vein Open Tramadol HCl 50 mg 12/25/16 18:04 Ultram PO Q6H PRN Pain Trazodone HCl 200 mg 12/25/16 21:00 12/25/16 20:22 Trazodone PO 200 mg BEDTIME SHREYA Administration Vit A/Vit C/Vit E/Selen/Cu/Zn/Lutei 1 tab 12/26/16 09:00 12/26/16 10:09 Icaps Mv PO Not Given DAILY SHREYA Discontinued Medications Generic Name Dose Route Start Last Admin Trade Name Freq PRN Reason Stop Dose Admin Clonidine HCl 0.2 mg 12/25/16 21:16 12/25/16 21:27 Catapres PO 12/25/16 21:17 0.2 mg ONETIME ONE Administration Enoxaparin Sodium 30 mg 12/26/16 09:00 12/26/16 10:11 Lovenox SUBCUT Not Given DAILY SHREYA Furosemide 40 mg 12/25/16 16:36 12/25/16 16:54 Lasix IVPUSH 12/25/16 16:37 40 mg NOW ONE Administration Potassium Chloride 10 meq/ 100 mls @ 100 mls/hr 12/26/16 00:15 12/26/16 03:37 Premix IV 12/26/16 04:14 100 mls/hr Q1H SHREYA Administration Magnesium Sulfate 2 gm/ Premix 50 mls @ 25 mls/hr 12/26/16 00:45 12/26/16 02: 56 IV 12/26/16 04:44 25 mls/hr Q2H SHREYA Administration Magnesium Sulfate Confirm 12/26/16 01:56 12/26/16 02:55 Magnesium Sulfate 2 Gm In Water 50 Ml Administered 12/26/16 01:57 2 gm Dose Administration 50 mls @ as directed .ROUTE .STK-MED ONE Metoprolol Tartrate 5 mg 12/25/16 15:42 12/25/16 16:04 Lopressor IVPUSH 12/25/16 15:43 5 mg ONETIME ONE Administration Morphine Sulfate 1 mg 12/25/16 17:57 Morphine IVPUSH 12/30/16 18:00 Q4H PRN Pain Nitrofurantoin Macrocrystals 100 mg 12/25/16 17:17 12/25/16 17:31 Macrobid PO 12/25/16 17:18 100 mg ONETIME ONE Administration - Radiology Interpretation Free Text/Narrative:: chest 1 view reviewed by myself and Dr. Khoury. Slight pulmonary congestion. - Re-Assessments/Exams Free Text/Narrative Re-Assessment/Exam: 12/25/16 15:42 When I examined the patient and her blood pressure had come down into the 170s. Was 174/114 and she was 92% on 2 L. Nursing staff just came in from me and reports that her blood pressure is back up into the 230s. We will have to give her some medications. We will give her 5 of Lopressor at this time. 12/25/16 17:30 Labs have returned. White blood cell count 5.60, hemoglobin 12.1 and platelets 213. sodium 143, potassium 3.7 chloride 103. Anion gap 12.7. Creatinine 1.1. Glucose 134. BNP is elevated at 1231. UA has positive nitrates and 2+ protein. Few bacteria seen on microscopy. Negative for leukocytes. urine culture sent. Given her symptomatic dysuria and positive nitrates and went ahead and ordered a Macrobid For suspected UTI. After the 5 mg of Lopressor the patient's blood pressure continued to be in the systolics of 200s to 180s. At 16:36 I ordered 40 mg of IV Lasix. Patient's blood pressure is currently in the 160s to 170s systolic. I feel the patient needs to be admitted for congestive heart failure. I spoke with the patient regarding this. She agrees to the admission. Spoke with Dr. Le, hospitalist multimedia production assistant. He agrees to admit the patient. Will admit to [facility] with telemetry for congestive heart failure. Departure - Departure Time of Disposition: 17:40 Disposition: Admitted As Inpatient 64 Condition: Fair Clinical Impression: UTI, Urinary tract infectious disease Congestive heart failure (CHF) Qualifiers: Congestive heart failure type: unspecified congestive heart failure type Congestive heart failure chronicity: acute Qualified Code(s): I50.9 - Heart failure, unspecified Hypertension Qualifiers: Hypertension type: essential hypertension Qualified Code(s): I10 - Essential ( primary) hypertension - Discharge Information - My Orders Last 24 Hours: My Active Orders 12/25/16 15:41 Sodium Chloride 0.9% [Saline Flush] 10 ml FLUSH ASDIRECTED PRN 12/25/16 15:42 Peripheral IV Insertion Adult [OM.PC] Routine 12/25/16 15:50 CULTURE URINE [RM] Stat - Assessment/Plan Last 24 Hours: My Active Orders 12/25/16 15:41 Sodium Chloride 0.9% [Saline Flush] 10 ml FLUSH ASDIRECTED PRN 12/25/16 15:42 Peripheral IV Insertion Adult [OM.PC] Routine 12/25/16 15:50 CULTURE URINE [RM] Stat
[2016-12-25] MEDS ORDERED: Furosemide 40 MG/4 ML VIAL IVPUSH ONE (16:36)
[2016-12-25] MEDS ORDERED: Nitrofurantoin Monohydrate/Macrocrystalline 100 MG Cap PO ONE (17:17)
--- NOTE | 2016-12-25 17:51 | PCM.HP ---
H&P History of Present Illness - General Date of Service: 12/25/16 Admit Problem/Dx: Admission Diagnosis/Problem Admission Diagnosis/Problem Congestive heart failure Source of Information: Patient, Family, Old Records, Provider, RN Notes Reviewed History Limitations: Reports: Physical Impairment, Respiratory Distress - History of Present Illness Initial Comments - Free Text/Narative: This is an 81-year-old morbidly obese elderly white female with past medical history of hypertension, hyperlipidemia, iron deficiency anemia, chronic abdominal pain, depression, diabetes type 2, osteoarthritis/DJD, constipation, seborrheic keratoses, dysphagia, history of pulmonary embolism, history of rheumatic fever and history of irritable bowel syndrome who comes in with complains urinary symptoms (frequency and burning) that have been going on for a few days now. She also has not been feeling well. Patient carries a history of urinary incontinence. She is not very mobile due to her body habitus and she wears pad for urinary frequency. Patient reports weight gain, Orthopnea, PND, fluid retention and increasing exertional dyspnea. She is not on NIPPV. However she uses 2.5 L of nasal cannula for nocturnal hypoxia. Her initial workup in the emergency department shows an unremarkable CBC. D- dimer of 0.32. Her chemistry is significant for creatinine of 1.1, BS of 134, AST of 14, and BNP of 1231. Her UA is not impressive for UTI but was positive for urinary nitrates. Her chest x-ray shows increased central lung markings with malina bronchial cuffings. On presentation to the emergency department, patient was found to be in accelerated hypertension with an initial blood pressure of 227/100 mmHg. She received initial treatment before she was sent to the floor for further treatment. Patient is being admitted for acute congestive heart failure and urinary tract infection. She is full code. Lower Abdomen Pain Score (Numeric/FACES): 10 - Related Data Allergies/Adverse Reactions: Allergies Allergy/AdvReac Type Severity Reaction Status Date / Time No Known Drug Allergies Allergy Other Verified 12/25/16 14:47 amoxicillin AdvReac Nausea and Verified 12/25/16 14:47 Vomiting amoxicillin trihydrate AdvReac Nausea and Verified 12/25/16 14:47 [From Augmentin] Vomiting ciprofloxacin AdvReac Nausea and Verified 12/25/16 14:47 Vomiting potassium clavulanate AdvReac Nausea and Verified 12/25/16 14:47 [From Augmentin] Vomiting Sulfa (Sulfonamide AdvReac Nausea and Verified 12/25/16 14:47 Antibiotics) Vomiting Home Medications: Home Meds Docusate Sodium [Colace] 200 mg PO BID 09/12/14 [History] Gabapentin 600 mg PO BID 09/12/14 [History] Metoprolol Succinate [Toprol XL] 25 mg PO DAILY 09/12/14 [History] Polyethylene Glycol 3350 [MiraLAX] 17 gm PO BID PRN 02/18/15 [History] traMADol [Ultram] 50 mg PO Q6H PRN 04/29/15 [History] Cholecalciferol (Vitamin D3) [Vitamin D3] 1,000 unit PO DAILY 08/10/15 [History] Simvastatin 20 mg PO BEDTIME 08/10/15 [History] Valsartan [Diovan] 320 mg PO DAILY 08/10/15 [History] Vit C/Vit E Ac/Lut/Mineral 1 [Prosight with Lutein] 1 each PO DAILY 08/10/15 [ History] amLODIPine Besylate [Amlodipine Besylate] 10 mg PO DAILY 08/10/15 [History] metFORMIN [Glucophage] 500 mg PO DAILY 08/10/15 [History] traZODone 200 mg PO DAILY 08/10/15 [History] Aspirin 81 mg PO DAILY 10/19/15 [History] Levothyroxine [Synthroid] 50 mcg PO DAILY 10/19/15 [History] Dicyclomine HCl [Bentyl] 20 mg PO Q6HR 10/20/15 [History] Nitrofurantoin Garrett/Macrocryst [Macrobid] 100 mg PO BID #10 cap 11/09/16 [Rx] Past Medical History HEENT History: Reports: None Cardiovascular History: Reports: High Cholesterol, Hypertension Respiratory History: Reports: PE Gastrointestinal History: Reports: Chronic Constipation, Diverticulosis, GERD, Hemorrhoids, Irritable Bowel Syndrome Other Gastrointestinal History: gastric ulcer, abdominal pain, lapartomy Other Genitourinary History: cystitis [employer] History: Reports: Musculoskeletal History: Reports: Osteoarthritis Psychiatric History: Reports: Depression Endocrine/Metabolic History: Reports: Diabetes, Type II, Hypothyroidism, Obesity /BMI 30+ Hematologic History: Reports: Anemia Dermatologic History: Reports: Seborrheic Dermatitis - Infectious Disease History Infectious Disease History: Reports: Rheumatic Fever - Past Surgical History HEENT Surgical History: Reports: Tonsillectomy Other Musculoskeletal Surgeries/Procedures:: osteoarthritis to L knee, R knee pain, R knee arthroscopy, R total knee, L total knee, hip surgery Social & Family History - Family History Cardiac: Reports: OR Other Cardiac Family History: Mother OBGYN: Reports: Endocrine/Metabolic: Reports: Diabetes, type II Oncologic: Reports: Colon - Tobacco Use Smoking Status *Q: Never Smoker Second Hand Smoke Exposure: No - Caffeine Use Caffeine Use: Reports: Soda Other Caffeine Use: coffee in the morning - Alcohol Use Days Per Week of Alcohol Use: 0 Number of Drinks Per Day: 0 Total Drinks Per Week: 0 - Recreational Drug Use Recreational Drug Use: No Drug Use in Last 12 Months: No H&P Review of Systems - Review of Systems: Review Of Systems: See Below General: Reports: No Symptoms, Weakness, Fatigue, Decreased Appetite, Weight Gain. Denies: Fever, Chills HEENT: Denies: Contact Lenses Pulmonary: Denies: Shortness of Breath Cardiovascular: Reports: Dyspnea on Exertion, Orthopnea, PND, Edema, Blood Pressure Problem. Denies: Chest Pain, Palpitations, Lightheadedness, Syncope, Claudication Gastrointestinal: Denies: Abdominal Pain, Nausea, Vomiting Genitourinary: Reports: Frequency, Burning, Urgency, Incontinence. Denies: Hematuria, Discharge Musculoskeletal: Reports: Joint Pain Skin: Denies: Cyanosis, Rash, Erythema Psychiatric: Denies: Confusion, Depression, Anxiety, Hallucinations Neurological: Reports: Difficulty Walking, Weakness, Gait Disturbance. Denies: Confusion Hematologic/Lymphatic: Reports: No Symptoms Immunologic: Reports: No Symptoms Exam - Exam Exam: See Below () - Vital Signs Vital Signs: Last Vital Signs Temp 36.1 C 12/25/16 14:38 Pulse 64 12/25/16 16:45 Resp 21 H 12/25/16 16:45 BP 211/110 H 12/25/16 16:45 Pulse Ox 92 L 12/25/16 16:45 Weight: 105.233 kg - Exam Quality Assessment: Supplemental Oxygen (2.5 L at night) General: Alert, Oriented, Cooperative, Mild Distress, Other (Moderately Obese) HEENT: Conjunctiva Clear, EACs Clear, EOMI, Hearing Intact, Mucosa Moist & Casas , Nares Patent, Normal Nasal Septum, Posterior Pharynx Clear, Pupils Equal, Pupils Reactive Neck: Supple, Trachea Midline, +2 Carotid Pulse wo Bruit, Full Range of Motion, Other (short and thick). No: JVD Lungs: Normal Respiratory Effort, Decreased Breath Sounds, Rales Cardiovascular: Regular Rate, Regular Rhythm Abdomen: Normal Bowel Sounds, Soft, Other (Obese). No: Organomegaly, Tenderness (Female) Exam: Other (indwelling szymanski catheter) Rectal (Female) Exam: Deferred Back Exam: Normal Inspection, Decreased Range of Motion Extremities: Normal Inspection, Normal Pulses, Clubbing, Cyanosis, Calf Tenderness, Edema Skin: Warm, Dry, Intact Neuro Extensive - Mental Status: Oriented x3, Normal Cognition, Memory Intact Neuro Extensive - Motor, Sensory, Reflexes: CN II-XII Intact (limited 2/2 body habitus but fairly intact), Abnormal Gait Psychiatric: Alert, Normal Affect, Normal Mood - Patient Data Result Diagrams: 12/25/16 15:45 12/25/16 15:45 *Q Meaningful Use (ADM) - VTE *Q VTE Criteria *Q: - Stroke *Q Stroke Criteria *Q: - AMI *Q AMI Criteria *Q: Problem List Initiated/Reviewed/Updated: Yes Orders Last 24hrs: Medication Orders Sodium Chloride (Saline Flush) 10 ml FLUSH ASDIRECTED PRN PRN Reason: Keep Vein Open Last Admin: 12/25/16 16:04 Dose: 10 ml Assessment/Plan Comment:: Assessment/Plan: Acute: Acute HF w/ Preserved EF - Recent 2D echo 65% LEVF on 10/20/2015 with regional wall abnormality - She has significant valvular dysfunction - Had a hx/o RF - HF protocol: routine weight check, Is/Os, lasix drip, and salt restriction - Morphine and Supplemental O2 - 2D echo in am - CE x 1 now and in am and D-dimer level UTI - UA not quite impressive but she is symptomatic: dysuria and frequency - Risk Factors: Chronic Urinary Frequency, Urinary Incontinence, Restricted Mobility and Wears Pad - Received Macrobid in ED - Start Rocephin IV 1 gram daily in AM Malignant Hypertension - Possibly 2/2 non-compliance - Came in with BP 174/114 - 168/111 upon admission to the floor Morbid Obesity - Dietary consult for weight management - Advised LSM Probable KELLEE - Will screen her with [facility]HANG Chronic: HLD HTN Constipation GERD Hx/o PUD OA/DJS DM2 Hypothyroidism SUSIE Depression Nocturnal Hypoxia on 2.5 L NC at night Seborrheic Dermatitis Dysphagia Abdominal Pain/Diverticulosis Hx/o PE Hx/o IBS Hx/o Interstitial Cystitis Hx/o Rheumatic Fever (RF) Plan: Admit to [facility] with Tele Routine am labs Resume Home Meds except oral lasix PT/OT consult High Risk Fall due to Morbid Obesity SW/CM for d/c planning Additional orders as above Code status: 1
[2016-12-25] MEDS ORDERED: Morphine 2 MG/ML Syringe IVPUSH PRN (17:57)
[2016-12-25] MEDS ORDERED: Acetaminophen 325 MG Tab PO PRN (17:57)
[2016-12-25] MEDS ORDERED: Acetaminophen/HYDROcodone 325-5 MG Tab PO PRN (17:57)
[2016-12-25] MEDS ORDERED: Albuterol/Ipratropium 3.0-0.5 MG/3 ML Neb Soln NEB PRN (18:00)
[2016-12-25] MEDS ORDERED: Bisacodyl 5 MG Tab PO PRN (18:00)
[2016-12-25] MEDS ORDERED: Promethazine 12.5 MG in Sodium Chloride 0.9% 50 ML IV PRN (18:00)
[2016-12-25] MEDS ORDERED: Docusate Sodium 100 MG Cap PO PRN (18:00)
[2016-12-25] MEDS ORDERED: Polyethylene Glycol 3350 Powder 17 GM Packet PO PRN (18:00)
[2016-12-25] MEDS ORDERED: Ondansetron 4 MG/2 ML SDV IV PRN (18:00)
[2016-12-25] MEDS ORDERED: LORazepam 2 MG/ML MDV IV PRN (18:00)
[2016-12-25] MEDS ORDERED: traMADol 50 MG Tab PO PRN (18:04)
[2016-12-25] MEDS ORDERED: 50% Dextrose in Water 50 ML Syringe IVPUSH PRN (18:10)
[2016-12-25] MEDS ORDERED: Metoprolol Tartrate 5 MG/5 ML SDV IVPUSH PRN (18:12)
[2016-12-25] MEDS ORDERED: hydrALAZINE 20 MG/ML SDV IVPUSH PRN (18:12)
[2016-12-25] MEDS ORDERED: Furosemide 100 MG in Sodium Chloride 0.9% 90 ML IV SCH (18:15)
[2016-12-25] MEDS: Insulin Aspart 100 Units/ML 3 ML Pen SUBCUT SCH ×2 (19:48→22:36)
[2016-12-25] MEDS: Gabapentin 600 MG Tab PO SCH (20:22)
[2016-12-25] MEDS: Docusate Sodium 100 MG Cap PO SCH (20:22)
[2016-12-25] MEDS: traZODone 50 MG Tab PO SCH (20:22)
[2016-12-25] MEDS: Simvastatin 20 MG Tab PO SCH (20:23)
[2016-12-25] MEDS ORDERED: cloNIDine 0.1 MG Tab PO ONE (21:16)
[2016-12-26] MEDS ORDERED: Magnesium Sulfate/Water 4 GM in Premix Bag 1 BAG IV ONE (00:11)
[2016-12-26] MEDS: Magnesium Sulfate/Water 2 GM in Premix Bag 1 BAG IV SCH ×2 (00:45→02:56)
[2016-12-26] MEDS: Potassium Chloride 10 MEQ in Premix Bag 1 BAG IV SCH ×4 (00:45→03:37)
[2016-12-26] MEDS ORDERED: Magnesium Sulfate/Water 50 ML ONE (01:56)
[2016-12-26] MEDS ORDERED: DOPamine/Dextrose 5%-Water 400 MG/250 ML BAG IV SCH (02:15)
[2016-12-26] MEDS: Levothyroxine 50 MCG Tab PO SCH (05:45)
[2016-12-26] MEDS ORDERED: metFORMIN 500 MG Tab PO SCH (07:00)
--- NOTE | 2016-12-26 07:15 | PCM.PN ---
- General Info Date of Service: 12/26/16 Admission Dx/Problem (Free Text): Admission Diagnosis/Problem Admission Diagnosis/Problem Congestive heart failure Subjective Update: Follow up Functional Status: Reports: pain controlled, tolerating diet, urinating - Review of Systems General: Reports: Fatigue, Night Sweats. Denies: Fever, Weakness, Chills HEENT: Denies: contact lenses Pulmonary: Reports: shortness of breath Cardiovascular: Denies: Chest Pain, Palpitations, Dyspnea on Exertion, Lightheadedness Gastrointestinal: Denies: Abdominal pain, Nausea, Vomiting Genitourinary: Reports: no symptoms Musculoskeletal: Reports: no symptoms Skin: Reports: no symptoms Neurological: Reports: Difficulty Walking, Gait Disturbance. Denies: Confusion Psychiatric: Denies: depression, anxiety, agitation, hallucinations Systems Review Comment:: He got hypotensive overnight and was sent to the unit for further hemodynmiac monitoring. She was started on dopamine 4-6 mics per hour and then slowly titrated up to 10 mics to maintain a map of greater than 65. Her oxygen was titrated to 10 L simple mask but is now back 8L. her Lasix case was immediately stopped. Her total urine output since admission was over 2 Liters. Patient reports no acute issues. She states, "I feel better". She slept good last night. Her current vitals are fairly stable. - Patient Data Vitals - most recent: Last Vital Signs Temp 36.0 C 12/26/16 06:55 Pulse 69 12/26/16 06:55 Resp 16 12/26/16 06:55 BP 88/49 L 12/26/16 06:55 Pulse Ox 93 L 12/26/16 06:55 Weight - most recent: 105.233 kg I&O - last 24 hours: Intake & Output 12/25/16 12/26/16 12/26/16 22:59 06:59 14:59 Intake Total 0 550 Output Total 2700 460 Balance -2700 90 Lab Results last 24 hrs: Laboratory Results - last 24 hr 12/25/16 12/25/16 12/25/16 Range/Units 18:09 18:09 18:14 WBC (3.98-10.04) K/mm3 RBC (3.98-5.22) M/mm3 Hgb (11.2-15.7) gm/L Hct (34.1-44.9) % MCV (79.4-94.8) fl MCH (25.6-32.2) pg MCHC (32.2-35.5) g/dl RDW Std Deviation (36.4-46.3) fL Plt Count (182-369) K/mm3 MPV (9.4-12.3) fl Neut % (Auto) (34.0-71.1) % Lymph % (Auto) (19.3-51.7) % Glynn % (Auto) (4.7-12.5) % Eos % (Auto) (0.7-5.8) Baso % (Auto) (0.1-1.2) % Neut # (Auto) (1.56-6.13) K/mm3 Lymph # (Auto) (1.18-3.74) K/mm3 Glynn # (Auto) (0.24-0.36) K/mm3 Eos # (Auto) (0.04-0.36) K/mm3 Baso # (Auto) (0.01-0.08) K/mm3 D-Dimer, Quantitative 0.32 (0.19-0.59) mg/L Puncture Site ABG pH (7.35-7.45) ABG pCO2 (35.0-45.0) mmHg ABG pO2 (80.0-100.0) mmHg ABG HCO3 (22.0-26.0) meq/L ABG O2 Saturation (96.0-97.0) % ABG Base Excess (-2-2.0) A-a Gradient mmHg O2 Delivery Device Oxygen Flow Rate FiO2 (21.00-100.00) % Sodium (136-145) mEq/L Potassium (3.5-5.1) mEq/L Chloride (98-107) mEq/L Carbon Dioxide (21-32) mEq/L Anion Gap (5-15) BUN (7-18) mg/dL Creatinine (0.55-1.02) mg/dL Est Cr Clr Drug Dosing mL/min Estimated GFR (MDRD) (>60) mL/min BUN/Creatinine Ratio (14-18) Glucose (83-115) mg/dL POC Glucose (83-110) mg/dL Lactic Acid (0.4-2.0) mmol/L Calcium (8.5-10.1) mg/dL Magnesium (1.8-2.4) mg/dl CK-MB (CK-2) 1.0 (0-3.6) ng/ml Troponin I < 0.017 (0.00-0.056) ng/mL C-Reactive Protein (<1.0) mg/dL B-Natriuretic Peptide (0-100) pg/mL 12/25/16 12/25/16 12/25/16 Range/Units 18:48 22:30 23:30 WBC (3.98-10.04) K/mm3 RBC (3.98-5.22) M/mm3 Hgb (11.2-15.7) gm/L Hct (34.1-44.9) % MCV (79.4-94.8) fl MCH (25.6-32.2) pg MCHC (32.2-35.5) g/dl RDW Std Deviation (36.4-46.3) fL Plt Count (182-369) K/mm3 MPV (9.4-12.3) fl Neut % (Auto) (34.0-71.1) % Lymph % (Auto) (19.3-51.7) % Glynn % (Auto) (4.7-12.5) % Eos % (Auto) (0.7-5.8) Baso % (Auto) (0.1-1.2) % Neut # (Auto) (1.56-6.13) K/mm3 Lymph # (Auto) (1.18-3.74) K/mm3 Glynn # (Auto) (0.24-0.36) K/mm3 Eos # (Auto) (0.04-0.36) K/mm3 Baso # (Auto) (0.01-0.08) K/mm3 D-Dimer, Quantitative (0.19-0.59) mg/L Puncture Site ABG pH (7.35-7.45) ABG pCO2 (35.0-45.0) mmHg ABG pO2 (80.0-100.0) mmHg ABG HCO3 (22.0-26.0) meq/L ABG O2 Saturation (96.0-97.0) % ABG Base Excess (-2-2.0) A-a Gradient mmHg O2 Delivery Device Oxygen Flow Rate FiO2 (21.00-100.00) % Sodium 143 (136-145) mEq/L Potassium 3.3 L (3.5-5.1) mEq/L Chloride 101 (98-107) mEq/L Carbon Dioxide 32 (21-32) mEq/L Anion Gap 13.3 (5-15) BUN 15 (7-18) mg/dL Creatinine 1.1 H (0.55-1.02) mg/dL Est Cr Clr Drug Dosing 27.83 mL/min Estimated GFR (MDRD) 47 (>60) mL/min BUN/Creatinine Ratio 13.6 L (14-18) Glucose 152 H (83-115) mg/dL POC Glucose 125 H 154 H (83-110) mg/dL Lactic Acid (0.4-2.0) mmol/L Calcium 8.8 (8.5-10.1) mg/dL Magnesium 1.2 L (1.8-2.4) mg/dl CK-MB (CK-2) (0-3.6) ng/ml Troponin I (0.00-0.056) ng/mL C-Reactive Protein (<1.0) mg/dL B-Natriuretic Peptide (0-100) pg/mL 12/26/16 12/26/16 12/26/16 Range/Units 00:54 01:52 02:15 WBC (3.98-10.04) K/mm3 RBC (3.98-5.22) M/mm3 Hgb (11.2-15.7) gm/L Hct (34.1-44.9) % MCV (79.4-94.8) fl MCH (25.6-32.2) pg MCHC (32.2-35.5) g/dl RDW Std Deviation (36.4-46.3) fL Plt Count (182-369) K/mm3 MPV (9.4-12.3) fl Neut % (Auto) (34.0-71.1) % Lymph % (Auto) (19.3-51.7) % Glynn % (Auto) (4.7-12.5) % Eos % (Auto) (0.7-5.8) Baso % (Auto) (0.1-1.2) % Neut # (Auto) (1.56-6.13) K/mm3 Lymph # (Auto) (1.18-3.74) K/mm3 Glynn # (Auto) (0.24-0.36) K/mm3 Eos # (Auto) (0.04-0.36) K/mm3 Baso # (Auto) (0.01-0.08) K/mm3 D-Dimer, Quantitative (0.19-0.59) mg/L Puncture Site Lt radial ABG pH 7.43 (7.35-7.45) ABG pCO2 40.5 (35.0-45.0) mmHg ABG pO2 94.0 (80.0-100.0) mmHg ABG HCO3 26.4 H (22.0-26.0) meq/L ABG O2 Saturation 95.9 L (96.0-97.0) % ABG Base Excess 2.4 H (-2-2.0) A-a Gradient 111 mmHg O2 Delivery Device Nasal cannula Oxygen Flow Rate 5.0 FiO2 40.00 (21.00-100.00) % Sodium (136-145) mEq/L Potassium (3.5-5.1) mEq/L Chloride (98-107) mEq/L Carbon Dioxide (21-32) mEq/L Anion Gap (5-15) BUN (7-18) mg/dL Creatinine (0.55-1.02) mg/dL Est Cr Clr Drug Dosing mL/min Estimated GFR (MDRD) (>60) mL/min BUN/Creatinine Ratio (14-18) Glucose (83-115) mg/dL POC Glucose 123 H (83-110) mg/dL Lactic Acid (0.4-2.0) mmol/L Calcium (8.5-10.1) mg/dL Magnesium (1.8-2.4) mg/dl CK-MB (CK-2) (0-3.6) ng/ml Troponin I (0.00-0.056) ng/mL C-Reactive Protein (<1.0) mg/dL B-Natriuretic Peptide 1267 H (0-100) pg/mL 12/26/16 12/26/16 12/26/16 Range/Units 02:15 02:15 02:15 WBC 6.78 (3.98-10.04) K/mm3 RBC 4.14 (3.98-5.22) M/mm3 Hgb 12.0 (11.2-15.7) gm/L Hct 39.1 (34.1-44.9) % MCV 94.4 (79.4-94.8) fl MCH 29.0 (25.6-32.2) pg MCHC 30.7 L (32.2-35.5) g/dl RDW Std Deviation 53.5 H (36.4-46.3) fL Plt Count 230 (182-369) K/mm3 MPV 10.7 (9.4-12.3) fl Neut % (Auto) (34.0-71.1) % Lymph % (Auto) (19.3-51.7) % Glynn % (Auto) (4.7-12.5) % Eos % (Auto) (0.7-5.8) Baso % (Auto) (0.1-1.2) % Neut # (Auto) (1.56-6.13) K/mm3 Lymph # (Auto) (1.18-3.74) K/mm3 Glynn # (Auto) (0.24-0.36) K/mm3 Eos # (Auto) (0.04-0.36) K/mm3 Baso # (Auto) (0.01-0.08) K/mm3 D-Dimer, Quantitative (0.19-0.59) mg/L Puncture Site ABG pH (7.35-7.45) ABG pCO2 (35.0-45.0) mmHg ABG pO2 (80.0-100.0) mmHg ABG HCO3 (22.0-26.0) meq/L ABG O2 Saturation (96.0-97.0) % ABG Base Excess (-2-2.0) A-a Gradient mmHg O2 Delivery Device Oxygen Flow Rate FiO2 (21.00-100.00) % Sodium (136-145) mEq/L Potassium (3.5-5.1) mEq/L Chloride (98-107) mEq/L Carbon Dioxide (21-32) mEq/L Anion Gap (5-15) BUN (7-18) mg/dL Creatinine (0.55-1.02) mg/dL Est Cr Clr Drug Dosing mL/min Estimated GFR (MDRD) (>60) mL/min BUN/Creatinine Ratio (14-18) Glucose (83-115) mg/dL POC Glucose (83-110) mg/dL Lactic Acid 1.7 (0.4-2.0) mmol/L Calcium (8.5-10.1) mg/dL Magnesium (1.8-2.4) mg/dl CK-MB (CK-2) (0-3.6) ng/ml Troponin I (0.00-0.056) ng/mL C-Reactive Protein 1.9 H* (<1.0) mg/dL B-Natriuretic Peptide (0-100) pg/mL 12/26/16 12/26/16 12/26/16 Range/Units 05:50 05:50 06:22 WBC 11.23 H (3.98-10.04) K/mm3 RBC 4.53 (3.98-5.22) M/mm3 Hgb 13.2 (11.2-15.7) gm/L Hct 42.8 (34.1-44.9) % MCV 94.5 (79.4-94.8) fl MCH 29.1 (25.6-32.2) pg MCHC 30.8 L (32.2-35.5) g/dl RDW Std Deviation 54.9 H (36.4-46.3) fL Plt Count 254 (182-369) K/mm3 MPV 10.6 (9.4-12.3) fl Neut % (Auto) 76.4 H (34.0-71.1) % Lymph % (Auto) 13.3 L (19.3-51.7) % Glynn % (Auto) 9.3 (4.7-12.5) % Eos % (Auto) 0.4 L (0.7-5.8) Baso % (Auto) 0.2 (0.1-1.2) % Neut # (Auto) 8.57 H (1.56-6.13) K/mm3 Lymph # (Auto) 1.49 (1.18-3.74) K/mm3 Glynn # (Auto) 1.05 H (0.24-0.36) K/mm3 Eos # (Auto) 0.05 (0.04-0.36) K/mm3 Baso # (Auto) 0.02 (0.01-0.08) K/mm3 D-Dimer, Quantitative (0.19-0.59) mg/L Puncture Site ABG pH (7.35-7.45) ABG pCO2 (35.0-45.0) mmHg ABG pO2 (80.0-100.0) mmHg ABG HCO3 (22.0-26.0) meq/L ABG O2 Saturation (96.0-97.0) % ABG Base Excess (-2-2.0) A-a Gradient mmHg O2 Delivery Device Oxygen Flow Rate FiO2 (21.00-100.00) % Sodium (136-145) mEq/L Potassium (3.5-5.1) mEq/L Chloride (98-107) mEq/L Carbon Dioxide (21-32) mEq/L Anion Gap (5-15) BUN (7-18) mg/dL Creatinine (0.55-1.02) mg/dL Est Cr Clr Drug Dosing mL/min Estimated GFR (MDRD) (>60) mL/min BUN/Creatinine Ratio (14-18) Glucose (83-115) mg/dL POC Glucose 162 H (83-110) mg/dL Lactic Acid (0.4-2.0) mmol/L Calcium (8.5-10.1) mg/dL Magnesium (1.8-2.4) mg/dl CK-MB (CK-2) (0-3.6) ng/ml Troponin I (0.00-0.056) ng/mL C-Reactive Protein (<1.0) mg/dL B-Natriuretic Peptide 1131 H (0-100) pg/mL Med Orders - Current: Current Medications Acetaminophen (Tylenol) 650 mg PO Q4H PRN PRN Reason: Pain (Mild 1-3)/fever Last Admin: 12/25/16 21:27 Dose: 650 mg Hydrocodone Bitart/Acetaminophen ([place] 325-5 Mg) 1 tab PO Q4H PRN PRN Reason: Pain (moderate 4-6) Albuterol/Ipratropium (Duoneb 3.0-0.5 Mg/3 Ml) 3 ml NEB Q4H PRN PRN Reason: Shortness Of Breath/wheezing Amlodipine Besylate (Norvasc) 10 mg PO DAILY [facility] Aspirin (Aspirin) 81 mg PO DAILY SHREYA Bisacodyl (Dulcolax) 5 mg PO DAILY PRN PRN Reason: Constipation Cholecalciferol (Vitamin D3) 1,000 units PO DAILY [facility] Dextrose/Water (Dextrose 50% In Water) 50 ml IVPUSH ASDIRECTED PRN PRN Reason: Hypoglycemia Docusate Sodium (Colace) 100 mg PO BID PRN PRN Reason: Constipation Docusate Sodium (Colace) 200 mg PO BID [facility] Last Admin: 12/25/16 20:22 Dose: 200 mg Enoxaparin Sodium (Lovenox) 30 mg SUBCUT DAILY [facility] Gabapentin (Neurontin) 600 mg PO BID [facility] Last Admin: 12/25/16 20:22 Dose: 600 mg Hydralazine HCl (Apresoline) 10 mg IVPUSH Q4H PRN PRN Reason: Hypertension Last Admin: 12/25/16 19:29 Dose: 10 mg Promethazine HCl 12.5 mg/ (Sodium Chloride) 50.5 mls @ 100 mls/hr IV Q6H PRN PRN Reason: Nausea/Vomiting Furosemide 100 mg/ Sodium (Chloride) 100 mls @ 5 mls/hr IV TITRATE HSREYA PRN Reason: Protocol Last Admin: 12/25/16 20:07 Dose: 5 mls/hr Ceftriaxone Sodium 1 gm/ (Sodium Chloride) 100 mls @ 200 mls/hr IV Q24H SHREYA Dopamine HCl/Dextrose (Dopamine In D5w 400 Mg/250 Ml) 400 mg in 250 mls @ 7.892 mls/hr IV TITRATE SHREYA; 2 MCG/KG/MIN PRN Reason: Protocol Last Titration: 12/26/16 06:50 Dose: 4 mcg/kg/min, 15.783 mls/hr Insulin Aspart (Novolog) 0 unit SUBCUT BID SHREYA PRN Reason: Protocol Last Admin: 12/25/16 22:36 Dose: 2 units Levothyroxine Sodium (Synthroid) 50 mcg PO ACBRK [facility] Last Admin: 12/26/16 05:45 Dose: Not Given Lorazepam (Ativan) 0.5 mg IV Q6H PRN PRN Reason: Anxiety Losartan Potassium (Cozaar) 150 mg PO DAILY [facility] Magnesium Sulfate (Pharmacy To Dose - Magnesium Replacement) 1 dose .XX ASDIRECTED [facility] Metformin HCl (Glucophage) 500 mg PO WITHBREAKFAST [facility] Last Admin: 12/26/16 06:44 Dose: Not Given Metoprolol Succinate (Toprol Xl) 25 mg PO DAILY [facility] Metoprolol Tartrate (Lopressor) 5 mg IVPUSH Q4H PRN PRN Reason: Tachycardia Morphine Sulfate (Morphine) 1 mg IVPUSH Q4H PRN PRN Reason: Pain Stop: 12/30/16 18:00 Ondansetron HCl (Zofran) 4 mg IV Q6H PRN PRN Reason: Nausea/Vomiting Polyethylene Glycol (Miralax) 17 gm PO DAILY PRN PRN Reason: Constipation Polyethylene Glycol (Miralax) 17 gm PO BID PRN PRN Reason: Constipation Potassium Chloride (Pharmacy To Dose - Potassium Replacement) 1 dose .XX ASDIRECTED SHREYA Senna/Docusate Sodium (Senna Plus) 1 tab PO BID PRN PRN Reason: Constipation Simvastatin (Zocor) 20 mg PO BEDTIME [facility] Last Admin: 12/25/16 20:23 Dose: 20 mg Sodium Chloride (Saline Flush) 10 ml FLUSH ASDIRECTED PRN PRN Reason: Keep Vein Open Last Admin: 12/25/16 16:04 Dose: 10 ml Tramadol HCl (Ultram) 50 mg PO Q6H PRN PRN Reason: Pain Trazodone HCl (Trazodone) 200 mg PO BEDTIME [facility] Last Admin: 12/25/16 20:22 Dose: 200 mg Vit A/Vit C/Vit E/Selen/Cu/Zn/Lutei (Icaps Mv) 1 tab PO DAILY SHREYA Discontinued Medications Clonidine HCl (Catapres) 0.2 mg PO ONETIME ONE Stop: 12/25/16 21:17 Last Admin: 12/25/16 21:27 Dose: 0.2 mg Furosemide (Lasix) 40 mg IVPUSH NOW ONE Stop: 12/25/16 16:37 Last Admin: 12/25/16 16:54 Dose: 40 mg Potassium Chloride 10 meq/ (Premix) 100 mls @ 100 mls/hr IV Q1H SHREYA Stop: 12/26/16 04:14 Last Admin: 12/26/16 03:37 Dose: 100 mls/hr Magnesium Sulfate 2 gm/ Premix 50 mls @ 25 mls/hr IV Q2H SRHEYA Stop: 12/26/16 04:44 Last Admin: 12/26/16 02:56 Dose: 25 mls/hr Magnesium Sulfate (Magnesium Sulfate 2 Gm In Water 50 Ml) Confirm Administered Dose 50 mls @ as directed .ROUTE .STK-MED ONE Stop: 12/26/16 01:57 Last Admin: 12/26/16 02:55 Dose: 2 gm Metoprolol Tartrate (Lopressor) 5 mg IVPUSH ONETIME ONE Stop: 12/25/16 15:43 Last Admin: 12/25/16 16:04 Dose: 5 mg Nitrofurantoin Macrocrystals (Macrobid) 100 mg PO ONETIME ONE Stop: 12/25/16 17:18 Last Admin: 12/25/16 17:31 Dose: 100 mg - Exam Quality Assessment: supplemental oxygen General: alert, oriented, cooperative, no acute distress, other (soaked and wet. she is morbidly obese) HEENT: Pupils equal, Pupils reactive, EOMI, Mucous membr. moist/pink Neck: supple, trachea midline, no JVD, no thyromegaly, other (short and thick) Lungs: Normal respiratory effort, Decreased breath sounds, Rales Cardiovascular: Regular Rate, Regular Rhythm Abdomen: bowel sounds present, soft, no tenderness, no distension, other (Obese) (Female) Exam: Other (indwelling szymanski catheter) Back Exam: Normal Inspection, Decreased Range of Motion Extremities: normal pulses, no tenderness/swelling, no clubbing, no cyanosis, no calf tenderness, edema (mild), other (right knee scar) Peripheral Pulses: 2+: Dorsalis Pedis (L), Dorsalis Pedis (R) Skin: warm, dry, intact Neurological: no new focal deficit Psy/Mental Status: alert, normal affect, normal mood - Problem List Review Problem List Initiated/Reviewed/Updated: Yes - My Orders Last 24 Hours: My Active Orders 12/25/16 17:52 Oxygen Therapy [RC] PRN VTE/DVT Education [RC] 10,22 Vital Signs [RC] Q1HR 12/25/16 17:57 Height and Weight [RC] DAILY Up With Assistance [RC] ASDIRECTED Up ad Megan [RC] ASDIRECTED Acetaminophen [Tylenol] 650 mg PO Q4H PRN Acetaminophen/HYDROcodone [[place] 325-5 MG] 1 tab PO Q4H PRN Morphine 1 mg IVPUSH Q4H PRN 12/25/16 17:59 Cardiac Monitoring [RC] CONTINUOUS Intake and Output [RC] Q2H 12/25/16 18:00 Albuterol/Ipratropium [DuoNeb 3.0-0.5 MG/3 ML] 3 ml NEB Q4H PRN Bisacodyl [Dulcolax] 5 mg PO DAILY PRN Docusate Sodium [Colace] 100 mg PO BID PRN Docusate Sodium/Sennosides [Senna Plus] 1 tab PO BID PRN LORazepam [Ativan] 0.5 mg IV Q6H PRN Ondansetron [Zofran] 4 mg IV Q6H PRN Polyethylene Glycol 3350 [MiraLAX] 17 gm PO DAILY PRN Promethazine [Phenergan] 12.5 mg Sodium Chloride 0.9% [Normal Saline] 50 ml IV Q6H 12/25/16 18:02 RT Aerosol Therapy [RC] .PRN Consult to Case Management [CONS] Routine Consult to [employer] [CONS] Routine Consult to Spiritual Care [CONS] Routine OT Evaluation and Treatment [CONS] Routine PT Evaluation and Treatment [CONS] Routine Respiratory Care Assess and Treatment [CONS] Routine 12/25/16 18:04 Polyethylene Glycol 3350 [MiraLAX] 17 gm PO BID PRN traMADol [Ultram] 50 mg PO Q6H PRN 12/25/16 18:06 Consult to Dietary [Consult to Knotter Hand] [CONS] Routine 12/25/16 18:08 Echo Comp wo Cont [US] Routine 12/25/16 18:10 Blood Glucose Check, Bedside [RC] 07,21 Dextrose 50% in Water 50 ml IVPUSH ASDIRECTED PRN 12/25/16 18:12 Urinary Catheter Assessment [RC] Q4HR Metoprolol Tartrate [Lopressor] 5 mg IVPUSH Q4H PRN hydrALAZINE [Apresoline] 10 mg IVPUSH Q4H PRN 12/25/16 18:15 Szymanski Catheter Insertion [Insert Urinary Catheter] [OM.PC] Q24H Furosemide [Lasix] 100 mg Sodium Chloride 0.9% [Normal Saline] 90 ml IV TITRATE Insulin Aspart [NovoLOG] See Protocol SUBCUT BID Magnesium Rep Pharmacy to Dose [Pharmacy to Dose - Magnesium Replacement] 1 dose .XX ASDIRECTED Potassium Rep Pharmacy to Dose [Pharmacy to Dose - Potassium Replacement] 1 dose .XX ASDIRECTED 12/25/16 21:00 Docusate Sodium [Colace] 200 mg PO BID Gabapentin [Neurontin] 600 mg PO BID Simvastatin [Zocor] 20 mg PO BEDTIME traZODone 200 mg PO BEDTIME 12/25/16 Dinner 2 Gram Sodium Diet [DIET] 12/26/16 01:30 Code Status [Resuscitation Status] Routine 12/26/16 01:50 Patient Status [ADT] Routine 12/26/16 02:09 Blood Culture x2 Reflex Set [OM.PC] Stat 12/26/16 02:15 CULTURE BLOOD [BC] Stat DOPamine/Dextrose 5%-Water [DOPamine in D5W 400 MG/250 ML] 400 mg in 250 ml IV TITRATE 12/26/16 02:35 CULTURE BLOOD [BC] Stat 12/26/16 05:50 A1C [GLYCOSYLATED HEMOGLOBIN,HGBA1C] [CHEM] AM BASIC METABOLIC PANEL,BMP [CHEM] AM CKMB [CHEM] AM MAGNESIUM [CHEM] AM T4 FREE [CHEM] AM TROPONIN I [CHEM] AM TSH [CHEM] AM 12/26/16 06:00 Levothyroxine [Synthroid] 50 mcg PO ACBRK 12/26/16 07:00 metFORMIN [Glucophage] 500 mg PO WITHBREAKFAST 12/26/16 09:00 Aspirin 81 mg PO DAILY Cholecalciferol (Vitamin D3) [Vitamin D3] 1,000 units PO DAILY Enoxaparin [Lovenox] 30 mg SUBCUT DAILY Losartan [Cozaar] 150 mg PO DAILY Metoprolol Succinate [Toprol XL] 25 mg PO DAILY Multivitamins/Min/FA/Lut/Zeax [ICaps MV] 1 tab PO DAILY amLODIPine [Norvasc] 10 mg PO DAILY cefTRIAXone [Rocephin] 1 gm Sodium Chloride 0.9% [Normal Saline] 100 ml IV Q24H 12/27/16 05:11 Chest 1V Frontal [CR] AM BASIC METABOLIC PANEL,BMP [CHEM] AM CBC WITH AUTO DIFF [HEME] AM MAGNESIUM [CHEM] AM 12/28/16 05:11 BASIC METABOLIC PANEL,BMP [CHEM] AM CBC WITH AUTO DIFF [HEME] AM MAGNESIUM [CHEM] AM 12/29/16 05:11 BASIC METABOLIC PANEL,BMP [CHEM] AM CBC WITH AUTO DIFF [HEME] AM MAGNESIUM [CHEM] AM 12/30/16 05:11 BASIC METABOLIC PANEL,BMP [CHEM] AM CBC WITH AUTO DIFF [HEME] AM MAGNESIUM [CHEM] AM - Plan Plan:: Assessment/Plan: Acute: Acute HF w/ Preserved EF - Recent 2D echo 65% LEVF on 10/20/2015 with regional wall abnormality - She has significant valvular dysfunction - Had a hx/o RF - HF protocol: routine weight check, Is/Os, lasix drip, and salt restriction - Morphine and Supplemental O2 - 2D echo: completed awaiting report - CE x 1 now and in am and D-dimer level: all normal - CXR shows no change from yesterday: still showing pulmonary congestion - I am afraid she might have pulmonary hypertension, will wait for her 2D echo UTI - UA not quite impressive but she is symptomatic: dysuria and frequency - Risk Factors: Chronic Urinary Frequency, Urinary Incontinence, Restricted Mobility and Wears Pad - Received Macrobid in ED - UA Cx: Suggestive of contamination - Continue Rocephin IV 1 gram daily Hypotension - Cannot r/o possible cardiogenic in etiology - Maybe 2/2 multiple BP meds she got including clonidine - Was also on Lasix drip - She is still on dopamine drip to maintain MAP 65 of higher - Check cortisol level - Solu-cortef 100 mg IV Q6 for pressure support Morbid Obesity - Dietary consult for weight management - Advised LSM Probable KELLEE - ASHLEY ZHANG is 4: Intermediate risk - Sleep study outpatient DM2 - BS not controlled - Appetite has not been good - Hold Metformin - Start glucotrol 2.5 mg po BID - ADA diet Resolved: S/p Malignant Hypertension - Possibly 2/2 non-compliance - Came in with BP 174/114 - 168/111 upon admission to the floor Chronic: HLD HTN Constipation GERD Hx/o PUD OA/DJS DM2 Hypothyroidism SUSIE Depression Nocturnal Hypoxia on 2.5 L NC at night Seborrheic Dermatitis Dysphagia Abdominal Pain/Diverticulosis Hx/o PE Hx/o IBS Hx/o Interstitial Cystitis Hx/o Rheumatic Fever (RF) Plan: She looks fairly stable but not quite hemodynamically stable Continue ICU Hold lasix drip Titrate dopamine drip to maintain MAP > 65 mmHg Continue PT/OT Consider stimulants in am High Risk Fall due to Morbid Obesity SW/CM for d/c planning Additional orders as above Code status: 1 Prognosis is guarded at this time
--- NOTE | 2016-12-26 07:16 | CR ---
Chest: Two views of the chest were obtained. Comparison: Previous chest x-ray of 10/21/15. Heart is enlarged. Pulmonary vessels are mildly congested. Stable linear scar is seen within the left mid lung. Bony structures appear within normal limits for the patient's age. Previous abdominal surgery is noted. Impression: 1. Cardiomegaly and pulmonary vascular congestion. Uncertain how much of the pulmonary vascular congestion is chronic versus acute. 2. Other incidental findings. Diagnostic code #3
--- NOTE | 2016-12-26 08:30 | CR ---
Chest: Frontal view of the chest was obtained. Comparison: Previous chest x-ray of 12/25/16. Heart size is enlarged. Slight scarring is seen within the left mid lung. Central lung markings are increased possibly due to mild persisting pulmonary vascular congestion. Bony structures are grossly intact. Surgical clips are noted within the upper right abdomen. Impression: 1. Findings as noted above. No significant change is seen from prior chest x-ray. Diagnostic code #3
[2016-12-26] MEDS ORDERED: Enoxaparin 30 MG/0.3 ML Syringe SUBCUT SCH (09:00)
[2016-12-26] MEDS ORDERED: Morphine 2 MG/ML Syringe IVPUSH PRN (09:35)
[2016-12-26] MEDS: Aspirin 81 MG Tab.Chew PO SCH (09:58)
[2016-12-26] MEDS: cefTRIAXone 1 GM in Sodium Chloride 0.9% 100 ML IV SCH (09:59)
[2016-12-26] MEDS: Gabapentin 600 MG Tab PO SCH ×2 (10:09→21:07)
[2016-12-26] MEDS: Multivitamins with Minerals/Folic Acid/Lutein/Zeaxanth Tab PO SCH (10:09)
[2016-12-26] MEDS: Docusate Sodium 100 MG Cap PO SCH ×2 (10:09→21:06)
[2016-12-26] MEDS: Losartan 100 MG Tab PO SCH (10:09)
[2016-12-26] MEDS: Metoprolol Succinate 25 MG Tab.ER PO SCH (10:10)
[2016-12-26] MEDS: amLODIPine 10 MG Tab PO SCH (10:10)
[2016-12-26] MEDS: Cholecalciferol (Vitamin D3) 1,000 Unit Tab PO SCH (10:10)
[2016-12-26] MEDS: Insulin Aspart 100 Units/ML 3 ML Pen SUBCUT SCH ×2 (10:44→21:13)
[2016-12-26] MEDS: Heparin Sodium 5,000 Units/ML Vial SUBCUT SCH ×2 (10:44→17:36)
[2016-12-26] MEDS: Hydrocortisone Sodium Succinate 100 MG/2 ML SDV IVPUSH SCH ×2 (18:09→23:57)
[2016-12-26] MEDS: glipiZIDE 5 MG Tab PO SCH (21:05)
[2016-12-26] MEDS: Simvastatin 20 MG Tab PO SCH (21:07)
[2016-12-26] MEDS: traZODone 50 MG Tab PO SCH (21:08)
[2016-12-27] MEDS: Heparin Sodium 5,000 Units/ML Vial SUBCUT SCH ×3 (01:55→17:45)
[2016-12-27] MEDS: Levothyroxine 50 MCG Tab PO SCH (06:17)
[2016-12-27] MEDS: Hydrocortisone Sodium Succinate 100 MG/2 ML SDV IVPUSH SCH ×4 (06:18→23:49)
--- NOTE | 2016-12-27 07:26 | PCM.PN ---
- General Info Date of Service: 12/27/16 Admission Dx/Problem (Free Text): Admission Diagnosis/Problem Admission Diagnosis/Problem Congestive heart failure Subjective Update: Follow up Functional Status: Reports: pain controlled, tolerating diet, ambulating, urinating. Denies: new symptoms - Review of Systems General: Denies: Fever, Weakness, Fatigue, Malaise, Chills HEENT: Reports: no symptoms Pulmonary: Reports: shortness of breath Cardiovascular: Denies: Chest Pain Gastrointestinal: Denies: Abdominal pain, Nausea, Vomiting Genitourinary: Reports: no symptoms Musculoskeletal: Reports: no symptoms Skin: Denies: cyanosis, pallor Neurological: Reports: Difficulty Walking, Weakness, Gait Disturbance. Denies: Confusion Psychiatric: Denies: depression, anxiety, agitation, hallucinations Systems Review Comment:: No overnight or acute issues. She looks and feels much better. She appears clinically and hemodynamically stable. She has no new complaints. - Patient Data Vitals - most recent: Last Vital Signs Temp 36.2 C 12/27/16 02:03 Pulse 74 12/27/16 06:23 Resp 16 12/27/16 06:23 BP 103/43 L 12/27/16 06:23 Pulse Ox 96 12/27/16 06:23 Weight - most recent: 100.017 kg I&O - last 24 hours: Intake & Output 12/26/16 12/27/16 12/27/16 22:59 06:59 14:59 Intake Total 597 200 Output Total 125 200 Balance 472 0 Lab Results last 24 hrs: Laboratory Results - last 24 hr 12/26/16 12/26/16 12/26/16 Range/Units 05:50 05:50 08:07 WBC (3.98-10.04) K/mm3 RBC (3.98-5.22) M/mm3 Hgb (11.2-15.7) gm/L Hct (34.1-44.9) % MCV (79.4-94.8) fl MCH (25.6-32.2) pg MCHC (32.2-35.5) g/dl RDW Std Deviation (36.4-46.3) fL Plt Count (182-369) K/mm3 MPV (9.4-12.3) fl Neut % (Auto) (34.0-71.1) % Lymph % (Auto) (19.3-51.7) % Kimble % (Auto) (4.7-12.5) % Eos % (Auto) (0.7-5.8) Baso % (Auto) (0.1-1.2) % Neut # (Auto) (1.56-6.13) K/mm3 Lymph # (Auto) (1.18-3.74) K/mm3 Kimble # (Auto) (0.24-0.36) K/mm3 Eos # (Auto) (0.04-0.36) K/mm3 Baso # (Auto) (0.01-0.08) K/mm3 Manual Slide Review Puncture Site Lt radial ABG pH 7.35 (7.35-7.45) ABG pCO2 46.8 H (35.0-45.0) mmHg ABG pO2 83.0 (80.0-100.0) mmHg ABG HCO3 24.9 (22.0-26.0) meq/L ABG O2 Saturation 93.9 L (96.0-97.0) % ABG Base Excess -0.6 (-2-2.0) Roney Test Positive O2 Delivery Device Simple mask Oxygen Flow Rate 9.0 FiO2 0.00 L (21.00-100.00) % Sodium 139 (136-145) mEq/L Potassium 4.7 (3.5-5.1) mEq/L Chloride 101 (98-107) mEq/L Carbon Dioxide 28 (21-32) mEq/L Anion Gap 14.7 (5-15) BUN 15 (7-18) mg/dL Creatinine 1.6 H (0.55-1.02) mg/dL Est Cr Clr Drug Dosing 19.14 mL/min Estimated GFR (MDRD) 31 (>60) mL/min BUN/Creatinine Ratio 9.4 L (14-18) Glucose 173 H (83-115) mg/dL POC Glucose (83-110) mg/dL Hemoglobin A1c 5.70 (4.50-6.20) % Lactic Acid (0.4-2.0) mmol/L Calcium 9.4 (8.5-10.1) mg/dL Magnesium 3.3 H (1.8-2.4) mg/dl CK-MB (CK-2) 0.6 (0-3.6) ng/ml Troponin I < 0.017 (0.00-0.056) ng/mL B-Natriuretic Peptide (0-100) pg/mL Free T4 1.28 (0.76-1.46) ng/dL TSH 3rd Generation 1.147 (0.358-3.74) uIU/mL 12/26/16 12/26/16 12/26/16 Range/Units 09:40 10:16 20:59 WBC (3.98-10.04) K/mm3 RBC (3.98-5.22) M/mm3 Hgb (11.2-15.7) gm/L Hct (34.1-44.9) % MCV (79.4-94.8) fl MCH (25.6-32.2) pg MCHC (32.2-35.5) g/dl RDW Std Deviation (36.4-46.3) fL Plt Count (182-369) K/mm3 MPV (9.4-12.3) fl Neut % (Auto) (34.0-71.1) % Lymph % (Auto) (19.3-51.7) % Kimble % (Auto) (4.7-12.5) % Eos % (Auto) (0.7-5.8) Baso % (Auto) (0.1-1.2) % Neut # (Auto) (1.56-6.13) K/mm3 Lymph # (Auto) (1.18-3.74) K/mm3 Kimble # (Auto) (0.24-0.36) K/mm3 Eos # (Auto) (0.04-0.36) K/mm3 Baso # (Auto) (0.01-0.08) K/mm3 Manual Slide Review Puncture Site ABG pH (7.35-7.45) ABG pCO2 (35.0-45.0) mmHg ABG pO2 (80.0-100.0) mmHg ABG HCO3 (22.0-26.0) meq/L ABG O2 Saturation (96.0-97.0) % ABG Base Excess (-2-2.0) Roney Test O2 Delivery Device Oxygen Flow Rate FiO2 (21.00-100.00) % Sodium (136-145) mEq/L Potassium (3.5-5.1) mEq/L Chloride (98-107) mEq/L Carbon Dioxide (21-32) mEq/L Anion Gap (5-15) BUN (7-18) mg/dL Creatinine (0.55-1.02) mg/dL Est Cr Clr Drug Dosing mL/min Estimated GFR (MDRD) (>60) mL/min BUN/Creatinine Ratio (14-18) Glucose (83-115) mg/dL POC Glucose 212 H 190 H (83-110) mg/dL Hemoglobin A1c (4.50-6.20) % Lactic Acid 0.9 (0.4-2.0) mmol/L Calcium (8.5-10.1) mg/dL Magnesium (1.8-2.4) mg/dl CK-MB (CK-2) (0-3.6) ng/ml Troponin I (0.00-0.056) ng/mL B-Natriuretic Peptide (0-100) pg/mL Free T4 (0.76-1.46) ng/dL TSH 3rd Generation (0.358-3.74) uIU/mL 12/27/16 12/27/16 Range/Units 06:10 06:10 WBC 7.56 (3.98-10.04) K/mm3 RBC 3.81 L (3.98-5.22) M/mm3 Hgb 11.1 L (11.2-15.7) gm/L Hct 36.9 (34.1-44.9) % MCV 96.9 H (79.4-94.8) fl MCH 29.1 (25.6-32.2) pg MCHC 30.1 L (32.2-35.5) g/dl RDW Std Deviation 53.6 H (36.4-46.3) fL Plt Count 219 (182-369) K/mm3 MPV 10.2 (9.4-12.3) fl Neut % (Auto) 85.8 H (34.0-71.1) % Lymph % (Auto) 8.7 L (19.3-51.7) % Kimble % (Auto) 5.4 (4.7-12.5) % Eos % (Auto) 0 L (0.7-5.8) Baso % (Auto) 0.0 L (0.1-1.2) % Neut # (Auto) 6.48 H (1.56-6.13) K/mm3 Lymph # (Auto) 0.66 L (1.18-3.74) K/mm3 Kimble # (Auto) 0.41 H (0.24-0.36) K/mm3 Eos # (Auto) 0.00 L (0.04-0.36) K/mm3 Baso # (Auto) 0.00 L (0.01-0.08) K/mm3 Manual Slide Review Abnormal smear Puncture Site ABG pH (7.35-7.45) ABG pCO2 (35.0-45.0) mmHg ABG pO2 (80.0-100.0) mmHg ABG HCO3 (22.0-26.0) meq/L ABG O2 Saturation (96.0-97.0) % ABG Base Excess (-2-2.0) Roney Test O2 Delivery Device Oxygen Flow Rate FiO2 (21.00-100.00) % Sodium (136-145) mEq/L Potassium (3.5-5.1) mEq/L Chloride (98-107) mEq/L Carbon Dioxide (21-32) mEq/L Anion Gap (5-15) BUN (7-18) mg/dL Creatinine (0.55-1.02) mg/dL Est Cr Clr Drug Dosing mL/min Estimated GFR (MDRD) (>60) mL/min BUN/Creatinine Ratio (14-18) Glucose (83-115) mg/dL POC Glucose (83-110) mg/dL Hemoglobin A1c (4.50-6.20) % Lactic Acid (0.4-2.0) mmol/L Calcium (8.5-10.1) mg/dL Magnesium (1.8-2.4) mg/dl CK-MB (CK-2) (0-3.6) ng/ml Troponin I (0.00-0.056) ng/mL B-Natriuretic Peptide 450 H (0-100) pg/mL Free T4 (0.76-1.46) ng/dL TSH 3rd Generation (0.358-3.74) uIU/mL [place] Results last 24 hrs: Microbiology 12/26/16 02:35 Aerobic Blood Culture - Preliminary Blood - Venous - Lab Draw NO GROWTH AFTER 1 DAY Anaerobic Blood Culture - Preliminary NO GROWTH AFTER 1 DAY 12/26/16 02:15 Aerobic Blood Culture - Preliminary Blood - Venous NO GROWTH AFTER 1 DAY Anaerobic Blood Culture - Preliminary NO GROWTH AFTER 1 DAY Med Orders - Current: Current Medications Acetaminophen (Tylenol) 650 mg PO Q4H PRN PRN Reason: Pain (Mild 1-3)/fever Last Admin: 12/25/16 21:27 Dose: 650 mg Hydrocodone Bitart/Acetaminophen ([place] 325-5 Mg) 1 tab PO Q4H PRN PRN Reason: Pain (moderate 4-6) Albuterol/Ipratropium (Duoneb 3.0-0.5 Mg/3 Ml) 3 ml NEB Q4H PRN PRN Reason: Shortness Of Breath/wheezing Amlodipine Besylate (Norvasc) 10 mg PO DAILY [facility] Last Admin: 12/26/16 10:10 Dose: Not Given Aspirin (Aspirin) 81 mg PO DAILY [facility] Last Admin: 12/26/16 09:58 Dose: 81 mg Bisacodyl (Dulcolax) 5 mg PO DAILY PRN PRN Reason: Constipation Cholecalciferol (Vitamin D3) 1,000 units PO DAILY [facility] Last Admin: 12/26/16 10:10 Dose: Not Given Dextrose/Water (Dextrose 50% In Water) 50 ml IVPUSH ASDIRECTED PRN PRN Reason: Hypoglycemia Docusate Sodium (Colace) 100 mg PO BID PRN PRN Reason: Constipation Docusate Sodium (Colace) 200 mg PO BID [facility] Last Admin: 12/26/16 21:06 Dose: 200 mg Gabapentin (Neurontin) 600 mg PO BID [facility] Last Admin: 12/26/16 21:07 Dose: 600 mg Glipizide (Glucotrol) 2.5 mg PO BIDAC [facility] Last Admin: 12/26/16 21:05 Dose: 2.5 mg Heparin Sodium (Porcine) (Heparin Sodium) 5,000 units SUBCUT Q8H [facility] Last Admin: 12/27/16 01:55 Dose: 5,000 units Hydralazine HCl (Apresoline) 10 mg IVPUSH Q4H PRN PRN Reason: Hypertension Last Admin: 12/25/16 19:29 Dose: 10 mg Hydrocortisone Sodium Succinate (Solu-Cortef) 100 mg IVPUSH Q6H [facility] Last Admin: 12/27/16 06:18 Dose: 100 mg Promethazine HCl 12.5 mg/ (Sodium Chloride) 50.5 mls @ 100 mls/hr IV Q6H PRN PRN Reason: Nausea/Vomiting Furosemide 100 mg/ Sodium (Chloride) 100 mls @ 5 mls/hr IV TITRATE SHREYA PRN Reason: Protocol Last Admin: 12/25/16 20:07 Dose: 5 mls/hr Ceftriaxone Sodium 1 gm/ (Sodium Chloride) 100 mls @ 200 mls/hr IV Q24H [facility] Last Admin: 12/26/16 09:59 Dose: 200 mls/hr Dopamine HCl/Dextrose (Dopamine In D5w 400 Mg/250 Ml) 400 mg in 250 mls @ 7.892 mls/hr IV TITRATE SHREYA; 2 MCG/KG/MIN PRN Reason: Protocol Last Titration: 12/26/16 14:32 Dose: 0 mcg/kg/min, 0 mls/hr Insulin Aspart (Novolog) 0 unit SUBCUT BID [facility] PRN Reason: Protocol Last Admin: 12/26/16 21:13 Dose: 2 units Levothyroxine Sodium (Synthroid) 50 mcg PO ACBRK [facility] Last Admin: 12/27/16 06:17 Dose: 50 mcg Lorazepam (Ativan) 0.5 mg IV Q6H PRN PRN Reason: Anxiety Losartan Potassium (Cozaar) 150 mg PO DAILY [facility] Last Admin: 12/26/16 10:09 Dose: Not Given Magnesium Sulfate (Pharmacy To Dose - Magnesium Replacement) 1 dose .XX ASDIRECTED [facility] Metoprolol Succinate (Toprol Xl) 25 mg PO DAILY [facility] Last Admin: 12/26/16 10:10 Dose: Not Given Metoprolol Tartrate (Lopressor) 5 mg IVPUSH Q4H PRN PRN Reason: Tachycardia Morphine Sulfate (Morphine) 0.5 mg IVPUSH Q4H PRN PRN Reason: Pain Stop: 12/30/16 18:00 Ondansetron HCl (Zofran) 4 mg IV Q6H PRN PRN Reason: Nausea/Vomiting Polyethylene Glycol (Miralax) 17 gm PO DAILY PRN PRN Reason: Constipation Polyethylene Glycol (Miralax) 17 gm PO BID PRN PRN Reason: Constipation Potassium Chloride (Pharmacy To Dose - Potassium Replacement) 1 dose .XX ASDIRECTED [facility] Senna/Docusate Sodium (Senna Plus) 1 tab PO BID PRN PRN Reason: Constipation Simvastatin (Zocor) 20 mg PO BEDTIME [facility] Last Admin: 12/26/16 21:07 Dose: 20 mg Sodium Chloride (Saline Flush) 10 ml FLUSH ASDIRECTED PRN PRN Reason: Keep Vein Open Last Admin: 12/25/16 16:04 Dose: 10 ml Tramadol HCl (Ultram) 50 mg PO Q6H PRN PRN Reason: Pain Trazodone HCl (Trazodone) 200 mg PO BEDTIME [facility] Last Admin: 12/26/16 21:08 Dose: Not Given Vit A/Vit C/Vit E/Selen/Cu/Zn/Lutei (Icaps Mv) 1 tab PO DAILY [facility] Last Admin: 12/26/16 10:09 Dose: Not Given Discontinued Medications Clonidine HCl (Catapres) 0.2 mg PO ONETIME ONE Stop: 12/25/16 21:17 Last Admin: 12/25/16 21:27 Dose: 0.2 mg Enoxaparin Sodium (Lovenox) 30 mg SUBCUT DAILY [facility] Last Admin: 12/26/16 10:11 Dose: Not Given Furosemide (Lasix) 40 mg IVPUSH NOW ONE Stop: 12/25/16 16:37 Last Admin: 12/25/16 16:54 Dose: 40 mg Potassium Chloride 10 meq/ (Premix) 100 mls @ 100 mls/hr IV Q1H SHREYA Stop: 12/26/16 04:14 Last Admin: 12/26/16 03:37 Dose: 100 mls/hr Magnesium Sulfate 2 gm/ Premix 50 mls @ 25 mls/hr IV Q2H SHREYA Stop: 12/26/16 04:44 Last Admin: 12/26/16 02:56 Dose: 25 mls/hr Magnesium Sulfate (Magnesium Sulfate 2 Gm In Water 50 Ml) Confirm Administered Dose 50 mls @ as directed .ROUTE .STK-MED ONE Stop: 12/26/16 01:57 Last Admin: 12/26/16 02:55 Dose: 2 gm Metformin HCl (Glucophage) 500 mg PO WITHBREAKFAST [facility] Last Admin: 12/26/16 06:44 Dose: Not Given Metoprolol Tartrate (Lopressor) 5 mg IVPUSH ONETIME ONE Stop: 12/25/16 15:43 Last Admin: 12/25/16 16:04 Dose: 5 mg Morphine Sulfate (Morphine) 1 mg IVPUSH Q4H PRN PRN Reason: Pain Stop: 12/30/16 18:00 Nitrofurantoin Macrocrystals (Macrobid) 100 mg PO ONETIME ONE Stop: 12/25/16 17:18 Last Admin: 12/25/16 17:31 Dose: 100 mg - Exam Quality Assessment: supplemental oxygen General: alert, oriented, cooperative, no acute distress, other HEENT: Pupils equal (Morbidly Obese), Pupils reactive, EOMI, Mucous membr. moist /pink Neck: supple, trachea midline, no JVD, no thyromegaly, other (short and thick) Lungs: Normal respiratory effort, Decreased breath sounds Cardiovascular: Regular Rate, Regular Rhythm Abdomen: bowel sounds present, soft, no tenderness, no distension, other (Obese) (Female) Exam: Deferred Back Exam: Normal Inspection, Decreased Range of Motion Extremities: normal pulses, no tenderness/swelling, no clubbing, no cyanosis, no calf tenderness, edema (trace) Peripheral Pulses: 2+: Dorsalis Pedis (L), Dorsalis Pedis (R) Skin: warm, dry, intact Neurological: no new focal deficit Psy/Mental Status: alert, normal affect, normal mood - Problem List Review Problem List Initiated/Reviewed/Updated: Yes - My Orders Last 24 Hours: My Active Orders 12/26/16 09:00 Aspirin 81 mg PO DAILY Cholecalciferol (Vitamin D3) [Vitamin D3] 1,000 units PO DAILY Losartan [Cozaar] 150 mg PO DAILY Metoprolol Succinate [Toprol XL] 25 mg PO DAILY Multivitamins/Min/FA/Lut/Zeax [ICaps MV] 1 tab PO DAILY amLODIPine [Norvasc] 10 mg PO DAILY cefTRIAXone [Rocephin] 1 gm Sodium Chloride 0.9% [Normal Saline] 100 ml IV Q24H 12/26/16 09:35 Morphine 0.5 mg IVPUSH Q4H PRN 12/26/16 10:00 Heparin Sodium 5,000 units SUBCUT Q8H 12/26/16 18:00 CORTISOL [REF] Stat Hydrocortisone Sod Succinate [Solu-CORTEF] 100 mg IVPUSH Q6H 12/26/16 21:00 glipiZIDE [Glucotrol] 2.5 mg PO BIDAC 12/27/16 05:11 Chest 1V Frontal [CR] AM 12/27/16 06:10 BASIC METABOLIC PANEL,BMP [CHEM] AM MAGNESIUM [CHEM] AM 12/28/16 05:11 BASIC METABOLIC PANEL,BMP [CHEM] AM CBC WITH AUTO DIFF [HEME] AM MAGNESIUM [CHEM] AM 12/29/16 05:11 BASIC METABOLIC PANEL,BMP [CHEM] AM CBC WITH AUTO DIFF [HEME] AM MAGNESIUM [CHEM] AM 12/30/16 05:11 BASIC METABOLIC PANEL,BMP [CHEM] AM CBC WITH AUTO DIFF [HEME] AM MAGNESIUM [CHEM] AM 12/30/16 07:00 CBC W/O DIFF,HEMOGRAM [HEME] MOTH@0700 01/02/17 07:00 CBC W/O DIFF,HEMOGRAM [HEME] MOTH@0700 01/06/17 07:00 CBC W/O DIFF,HEMOGRAM [HEME] MOTH@0700 01/09/17 07:00 CBC W/O DIFF,HEMOGRAM [HEME] MOTH@0700 01/13/17 07:00 CBC W/O DIFF,HEMOGRAM [HEME] MOTH@0700 01/16/17 07:00 CBC W/O DIFF,HEMOGRAM [HEME] MOTH@0700 - Plan Plan:: Assessment/Plan: Acute: Acute HF w/ Preserved EF - Recent 2D echo 65% LEVF on 10/20/2015 with regional wall abnormality - She has significant valvular dysfunction - Had a hx/o RF - HF protocol: routine weight check, Is/Os, lasix drip, and salt restriction - Morphine and Supplemental O2 - 2D echo: completed awaiting report - CE x 1 now and in am and D-dimer level: all normal - CXR shows no change from yesterday: still showing pulmonary congestion - New 2D echo: left ventricular ejection fraction 65-70%. Severe dilated left atrium. Moderate aortic valve stenosis. Moderate mitral stenosis. Severe mitral annular calcification. Right ventricular systolic pressure is elevated at 72 mm per mercury. No regional motion abnormalities UTI - UA not quite impressive but she is symptomatic: dysuria and frequency - Risk Factors: Chronic Urinary Frequency, Urinary Incontinence, Restricted Mobility and Wears Pad - Received Macrobid in ED - UA Cx: Suggestive of contamination - Continue Rocephin IV 1 gram daily, will stop after she gets her 3rd dose Morbid Obesity - Dietary consult for weight management - Advised LSM Probable KELLEE - STOB BANG is 4: Intermediate risk - Sleep study outpatient DM2 - BS is now controlled - She is starting to eat now - Continue to hold Metformin - Continue glucotrol 2.5 mg po BID - ADA diet Generalized Weakness - 2/2 current illness - Consider SNF/NH placement - Patient and , agreeable Resolved: S/p Malignant Hypertension - Possibly 2/2 non-compliance - Came in with BP 174/114 - 168/111 upon admission to the floor S/p Hypotension - Cannot r/o possible cardiogenic in etiology - Maybe 2/2 multiple BP meds she got including clonidine - Was also on Lasix drip - She is still on dopamine drip to maintain MAP 65 of higher - Check cortisol level - Solu-cortef 100 mg IV Q6 for pressure support Chronic: HLD HTN Constipation GERD Hx/o PUD OA/DJS DM2 Hypothyroidism SUSIE Depression Nocturnal Hypoxia on 2.5 L NC at night Seborrheic Dermatitis Dysphagia Abdominal Pain/Diverticulosis Hx/o PE Hx/o IBS Hx/o Interstitial Cystitis Hx/o Rheumatic Fever (RF) Plan: She is now clinically stable May possibly downgrade to Med-Surg later this afternoon or early evening Continue PT/OT Will d/c IV steroids High Risk Fall due to Morbid Obesity SW/CM for d/c planning Additional orders as above Code status: 1 Prognosis is good-guarded LOS anticipate > 96 hrs for SNF/NH placement
[2016-12-27] MEDS ORDERED: Sodium Chloride 0.9% 1,000 ML IV SCH (08:15)
[2016-12-27] MEDS: Losartan 100 MG Tab PO SCH (08:33)
[2016-12-27] MEDS: Gabapentin 600 MG Tab PO SCH ×2 (08:35→20:55)
[2016-12-27] MEDS: Furosemide 40 MG Tab PO SCH (08:35)
[2016-12-27] MEDS: Multivitamins with Minerals/Folic Acid/Lutein/Zeaxanth Tab PO SCH (08:36)
[2016-12-27] MEDS: glipiZIDE 5 MG Tab PO SCH ×2 (08:36→17:45)
[2016-12-27] MEDS: Cholecalciferol (Vitamin D3) 1,000 Unit Tab PO SCH (08:36)
[2016-12-27] MEDS: Docusate Sodium 100 MG Cap PO SCH ×2 (08:36→20:56)
[2016-12-27] MEDS: Aspirin 81 MG Tab.Chew PO SCH (08:37)
[2016-12-27] MEDS: amLODIPine 10 MG Tab PO SCH (08:37)
[2016-12-27] MEDS: cefTRIAXone 1 GM in Sodium Chloride 0.9% 100 ML IV SCH (08:38)
--- NOTE | 2016-12-27 08:43 | CR ---
Chest: Frontal view of the chest was obtained. Comparison: Previous chest x-ray of 12/26/16. Heart is enlarged. Atelectasis is increased within the left mid to lower lung. Pulmonary vessels are felt to be increased which are likely stable when allowing for slight differences in technique. Bony structures are unchanged. Impression: 1. Slight increased atelectasis within left mid to lower lung. 2. Cardiomegaly and pulmonary vascular congestion which appear to be fairly stable from prior study when allowing for differences in technique. Diagnostic code #3
[2016-12-27] MEDS: Insulin Aspart 100 Units/ML 3 ML Pen SUBCUT SCH ×2 (08:53→20:54)
[2016-12-27] MEDS: Metoprolol Succinate 25 MG Tab.ER PO SCH (09:05)
[2016-12-27] MEDS: Simvastatin 20 MG Tab PO SCH (20:55)
[2016-12-27] MEDS: traZODone 50 MG Tab PO SCH (20:56)
[2016-12-28] MEDS: Heparin Sodium 5,000 Units/ML Vial SUBCUT SCH ×3 (02:29→17:22)
[2016-12-28] MEDS: glipiZIDE 5 MG Tab PO SCH (06:20)
[2016-12-28] MEDS: Levothyroxine 50 MCG Tab PO SCH (06:21)
--- NOTE | 2016-12-28 07:13 | PCM.PN ---
- General Info Date of Service: 12/28/16 Admission Dx/Problem (Free Text): Admission Diagnosis/Problem Admission Diagnosis/Problem Congestive heart failure Subjective Update: Follow up Functional Status: Reports: pain controlled, tolerating diet, ambulating, urinating. Denies: new symptoms - Review of Systems General: Reports: Weakness. Denies: Fever, Chills HEENT: Reports: no symptoms Pulmonary: Reports: shortness of breath Cardiovascular: Reports: Dyspnea on Exertion, Edema. Denies: Chest Pain, Palpitations Gastrointestinal: Denies: Abdominal pain, Nausea, Vomiting Genitourinary: Reports: no symptoms Musculoskeletal: Reports: no symptoms Skin: Denies: no symptoms, cyanosis Neurological: Reports: Weakness, Gait Disturbance. Denies: Confusion, Difficulty Walking Psychiatric: Denies: depression, anxiety, agitation Systems Review Comment:: No overnight. She is doing just fine. She has no new complaints. Per PT she desaturates to upper 80s and gets a little dizzy with ambulation. - Patient Data Vitals - most recent: Last Vital Signs Temp 37.0 C 12/27/16 20:51 Pulse 62 12/27/16 20:51 Resp 20 12/27/16 20:51 BP 132/89 12/27/16 20:51 Pulse Ox 94 L 12/27/16 20:51 Weight - most recent: 99.654 kg I&O - last 24 hours: Intake & Output 12/27/16 12/28/16 12/28/16 22:59 06:59 14:59 Intake Total 1342 400 Output Total 225 Balance 1117 400 Lab Results last 24 hrs: Laboratory Results - last 24 hr 12/26/16 12/27/16 12/27/16 Range/Units 18:00 06:10 07:23 Sodium 140 (136-145) mEq/L Potassium 4.1 (3.5-5.1) mEq/L Chloride 101 (98-107) mEq/L Carbon Dioxide 30 (21-32) mEq/L Anion Gap 13.1 (5-15) BUN 26 H (7-18) mg/dL Creatinine 1.6 H (0.55-1.02) mg/dL Est Cr Clr Drug Dosing 19.14 mL/min Estimated GFR (MDRD) 31 (>60) mL/min BUN/Creatinine Ratio 16.3 (14-18) Glucose 162 H (83-115) mg/dL POC Glucose 150 H (83-110) mg/dL Calcium 8.4 L (8.5-10.1) mg/dL Magnesium 2.7 H (1.8-2.4) mg/dl Cortisol 21.7 ug/dL 12/27/16 12/28/16 Range/Units 20:53 06:19 Sodium (136-145) mEq/L Potassium (3.5-5.1) mEq/L Chloride (98-107) mEq/L Carbon Dioxide (21-32) mEq/L Anion Gap (5-15) BUN (7-18) mg/dL Creatinine (0.55-1.02) mg/dL Est Cr Clr Drug Dosing mL/min Estimated GFR (MDRD) (>60) mL/min BUN/Creatinine Ratio (14-18) Glucose (83-115) mg/dL POC Glucose 328 H 194 H (83-110) mg/dL Calcium (8.5-10.1) mg/dL Magnesium (1.8-2.4) mg/dl Cortisol ug/dL [place] Results last 24 hrs: Microbiology 12/26/16 02:35 Aerobic Blood Culture - Preliminary Blood - Venous - Lab Draw NO GROWTH AFTER 2 DAYS Anaerobic Blood Culture - Preliminary NO GROWTH AFTER 2 DAYS 12/26/16 02:15 Aerobic Blood Culture - Preliminary Blood - Venous NO GROWTH AFTER 2 DAYS Anaerobic Blood Culture - Preliminary NO GROWTH AFTER 2 DAYS Med Orders - Current: Current Medications Acetaminophen (Tylenol) 650 mg PO Q4H PRN PRN Reason: Pain (Mild 1-3)/fever Last Admin: 12/25/16 21:27 Dose: 650 mg Hydrocodone Bitart/Acetaminophen ([place] 325-5 Mg) 1 tab PO Q4H PRN PRN Reason: Pain (moderate 4-6) Albuterol/Ipratropium (Duoneb 3.0-0.5 Mg/3 Ml) 3 ml NEB Q4H PRN PRN Reason: Shortness Of Breath/wheezing Amlodipine Besylate (Norvasc) 10 mg PO DAILY [facility] Last Admin: 12/27/16 08:37 Dose: 10 mg Aspirin (Aspirin) 81 mg PO DAILY [facility] Last Admin: 12/27/16 08:37 Dose: 81 mg Bisacodyl (Dulcolax) 5 mg PO DAILY PRN PRN Reason: Constipation Cholecalciferol (Vitamin D3) 1,000 units PO DAILY [facility] Last Admin: 12/27/16 08:36 Dose: 1,000 units Dextrose/Water (Dextrose 50% In Water) 50 ml IVPUSH ASDIRECTED PRN PRN Reason: Hypoglycemia Docusate Sodium (Colace) 100 mg PO BID PRN PRN Reason: Constipation Docusate Sodium (Colace) 200 mg PO BID [facility] Last Admin: 12/27/16 20:56 Dose: 200 mg Furosemide (Lasix) 40 mg PO DAILY [facility] Last Admin: 12/27/16 08:35 Dose: 40 mg Gabapentin (Neurontin) 600 mg PO BID [facility] Last Admin: 12/27/16 20:55 Dose: 600 mg Glipizide (Glucotrol) 2.5 mg PO BIDAC [facility] Last Admin: 12/28/16 06:20 Dose: 2.5 mg Heparin Sodium (Porcine) (Heparin Sodium) 5,000 units SUBCUT Q8H [facility] Last Admin: 12/28/16 02:29 Dose: 5,000 units Hydralazine HCl (Apresoline) 10 mg IVPUSH Q4H PRN PRN Reason: Hypertension Last Admin: 12/25/16 19:29 Dose: 10 mg Promethazine HCl 12.5 mg/ (Sodium Chloride) 50.5 mls @ 100 mls/hr IV Q6H PRN PRN Reason: Nausea/Vomiting Ceftriaxone Sodium 1 gm/ (Sodium Chloride) 100 mls @ 200 mls/hr IV Q24H [facility] Stop: 12/30/16 09:01 Last Admin: 12/27/16 08:38 Dose: 200 mls/hr Insulin Aspart (Novolog) 0 unit SUBCUT BID [facility] PRN Reason: Protocol Last Admin: 12/27/16 20:54 Dose: 8 units Levothyroxine Sodium (Synthroid) 50 mcg PO ACBRK [facility] Last Admin: 12/28/16 06:21 Dose: 50 mcg Lorazepam (Ativan) 0.5 mg IV Q6H PRN PRN Reason: Anxiety Losartan Potassium (Cozaar) 150 mg PO DAILY [facility] Last Admin: 12/27/16 08:33 Dose: 150 mg Magnesium Sulfate (Pharmacy To Dose - Magnesium Replacement) 1 dose .XX ASDIRECTED [facility] Metoprolol Succinate (Toprol Xl) 25 mg PO DAILY [facility] Last Admin: 12/27/16 09:05 Dose: 25 mg Metoprolol Tartrate (Lopressor) 5 mg IVPUSH Q4H PRN PRN Reason: Tachycardia Morphine Sulfate (Morphine) 0.5 mg IVPUSH Q4H PRN PRN Reason: Pain Stop: 12/30/16 18:00 Ondansetron HCl (Zofran) 4 mg IV Q6H PRN PRN Reason: Nausea/Vomiting Polyethylene Glycol (Miralax) 17 gm PO DAILY PRN PRN Reason: Constipation Last Admin: 12/27/16 18:10 Dose: 17 gm Polyethylene Glycol (Miralax) 17 gm PO BID PRN PRN Reason: Constipation Potassium Chloride (Pharmacy To Dose - Potassium Replacement) 1 dose .XX ASDIRECTED [facility] Senna/Docusate Sodium (Senna Plus) 1 tab PO BID PRN PRN Reason: Constipation Simvastatin (Zocor) 20 mg PO BEDTIME [facility] Last Admin: 12/27/16 20:55 Dose: 20 mg Sodium Chloride (Saline Flush) 10 ml FLUSH ASDIRECTED PRN PRN Reason: Keep Vein Open Last Admin: 12/25/16 16:04 Dose: 10 ml Tramadol HCl (Ultram) 50 mg PO Q6H PRN PRN Reason: Pain Trazodone HCl (Trazodone) 200 mg PO BEDTIME [facility] Last Admin: 12/27/16 20:56 Dose: 200 mg Vit A/Vit C/Vit E/Selen/Cu/Zn/Lutei (Icaps Mv) 1 tab PO DAILY [facility] Last Admin: 12/27/16 08:36 Dose: 1 tab Discontinued Medications Clonidine HCl (Catapres) 0.2 mg PO ONETIME ONE Stop: 12/25/16 21:17 Last Admin: 12/25/16 21:27 Dose: 0.2 mg Enoxaparin Sodium (Lovenox) 30 mg SUBCUT DAILY [facility] Last Admin: 12/26/16 10:11 Dose: Not Given Furosemide (Lasix) 40 mg IVPUSH NOW ONE Stop: 12/25/16 16:37 Last Admin: 12/25/16 16:54 Dose: 40 mg Hydrocortisone Sodium Succinate (Solu-Cortef) 100 mg IVPUSH Q6H [facility] Stop: 12/28/16 01:00 Last Admin: 12/27/16 23:49 Dose: 100 mg Furosemide 100 mg/ Sodium (Chloride) 100 mls @ 5 mls/hr IV TITRATE [facility] PRN Reason: Protocol Last Admin: 12/25/16 20:07 Dose: 5 mls/hr Potassium Chloride 10 meq/ (Premix) 100 mls @ 100 mls/hr IV Q1H [facility] Stop: 12/26/16 04:14 Last Admin: 12/26/16 03:37 Dose: 100 mls/hr Magnesium Sulfate 2 gm/ Premix 50 mls @ 25 mls/hr IV Q2H [facility] Stop: 12/26/16 04:44 Last Admin: 12/26/16 02:56 Dose: 25 mls/hr Magnesium Sulfate (Magnesium Sulfate 2 Gm In Water 50 Ml) Confirm Administered Dose 50 mls @ as directed .ROUTE .STK-MED ONE Stop: 12/26/16 01:57 Last Admin: 12/26/16 02:55 Dose: 2 gm Dopamine HCl/Dextrose (Dopamine In D5w 400 Mg/250 Ml) 400 mg in 250 mls @ 7.892 mls/hr IV TITRATE SHREYA; 2 MCG/KG/MIN PRN Reason: Protocol Last Titration: 12/26/16 14:32 Dose: 0 mcg/kg/min, 0 mls/hr Sodium Chloride (Normal Saline) 1,000 mls @ 25 mls/hr IV ASDIRECTED [facility] Stop: 12/31/16 17:00 Last Admin: 12/27/16 09:11 Dose: 25 mls/hr Metformin HCl (Glucophage) 500 mg PO WITHBREAKFAST [facility] Last Admin: 12/26/16 06:44 Dose: Not Given Metoprolol Tartrate (Lopressor) 5 mg IVPUSH ONETIME ONE Stop: 12/25/16 15:43 Last Admin: 12/25/16 16:04 Dose: 5 mg Morphine Sulfate (Morphine) 1 mg IVPUSH Q4H PRN PRN Reason: Pain Stop: 12/30/16 18:00 Nitrofurantoin Macrocrystals (Macrobid) 100 mg PO ONETIME ONE Stop: 12/25/16 17:18 Last Admin: 12/25/16 17:31 Dose: 100 mg - Exam Quality Assessment: supplemental oxygen General: alert, oriented, cooperative, other (Morbidly Obese) HEENT: Pupils equal, Pupils reactive, EOMI, Mucous membr. moist/pink Neck: supple, trachea midline, no JVD, other (short and thick) Lungs: Normal respiratory effort, Decreased breath sounds Cardiovascular: Regular Rate, Regular Rhythm Abdomen: bowel sounds present, soft, no tenderness, no distension, other (Obese) (Female) Exam: Deferred Back Exam: Normal Inspection, Decreased Range of Motion Extremities: no edema, normal pulses, no tenderness/swelling, no clubbing, no cyanosis, no calf tenderness Peripheral Pulses: 2+: Dorsalis Pedis (L), Dorsalis Pedis (R) Skin: warm, dry, intact Neurological: no new focal deficit Psy/Mental Status: alert, normal affect, normal mood - Problem List Review Problem List Initiated/Reviewed/Updated: Yes - My Orders Last 24 Hours: My Active Orders 12/27/16 09:00 Furosemide [Lasix] 40 mg PO DAILY 12/27/16 09:37 OT Evaluation and Treatment [CONS] Routine PT Evaluation and Treatment [CONS] Routine 12/27/16 17:00 DC Choudhury Catheter [Urinary Catheter Removal] [RC] Per Unit Routine 12/27/16 18:27 Admission Status [Patient Status] [ADT] Routine 12/28/16 06:55 BASIC METABOLIC PANEL,BMP [CHEM] AM CBC WITH AUTO DIFF [HEME] AM MAGNESIUM [CHEM] AM 12/29/16 05:11 BASIC METABOLIC PANEL,BMP [CHEM] AM CBC WITH AUTO DIFF [HEME] AM MAGNESIUM [CHEM] AM 12/30/16 05:11 BASIC METABOLIC PANEL,BMP [CHEM] AM CBC WITH AUTO DIFF [HEME] AM MAGNESIUM [CHEM] AM 12/30/16 07:00 CBC W/O DIFF,HEMOGRAM [HEME] MOTH@0700 01/02/17 07:00 CBC W/O DIFF,HEMOGRAM [HEME] MOTH@0700 01/06/17 07:00 CBC W/O DIFF,HEMOGRAM [HEME] MOTH@0700 01/09/17 07:00 CBC W/O DIFF,HEMOGRAM [HEME] MOTH@0700 01/13/17 07:00 CBC W/O DIFF,HEMOGRAM [HEME] MOTH@0700 01/16/17 07:00 CBC W/O DIFF,HEMOGRAM [HEME] MOTH@0700 - Plan Plan:: Assessment/Plan: Acute: Acute HF w/ Preserved EF - Recent 2D echo 65% LEVF on 10/20/2015 with regional wall abnormality - She has significant valvular dysfunction - Had a hx/o RF - HF protocol: routine weight check, Is/Os, lasix drip, and salt restriction - Morphine and Supplemental O2 - 2D echo: completed awaiting report - CE x 1 now and in am and D-dimer level: all normal - CXR shows no change from yesterday: still showing pulmonary congestion - New 2D echo: left ventricular ejection fraction 65-70%. Severe dilated left atrium. Moderate aortic valve stenosis. Moderate mitral stenosis. Severe mitral annular calcification. Right ventricular systolic pressure is elevated at 72 mm per mercury. No regional motion abnormalities UTI - UA not quite impressive but she is symptomatic: dysuria and frequency - Risk Factors: Chronic Urinary Frequency, Urinary Incontinence, Restricted Mobility and Wears Pad - Received Macrobid in ED - UA Cx: Suggestive of contamination - On Rocephin IV 1 gram daily - Discontinue IV Rocephin today Morbid Obesity - Dietary consult for weight management - Advised LSM Probable KELLEE - STOB BANG is 4: Intermediate risk - Sleep study outpatient DM2 - BS is remains controlled - Will not resume Metformin 500 mg po BID - Discontinue glucotrol 2.5 mg po BID - ADA diet Generalized Weakness - 2/2 current illness - Consider SNF/NH placement - Patient and , agreeable High Fall Risk - She is morbidly Obese - Unsteady gait Resolved: S/p Malignant Hypertension - Possibly 2/2 non-compliance - Came in with BP 174/114 - 168/111 upon admission to the floor S/p Hypotension - Cannot r/o possible cardiogenic in etiology - Maybe 2/2 multiple BP meds she got including clonidine - Was also on Lasix drip - She is still on dopamine drip to maintain MAP 65 of higher - Check cortisol level - Solu-cortef 100 mg IV Q6 for pressure support Chronic: HLD HTN Constipation GERD Hx/o PUD OA/DJS DM2 Hypothyroidism SUSIE Depression Nocturnal Hypoxia on 2.5 L NC at night Seborrheic Dermatitis Dysphagia Abdominal Pain/Diverticulosis Hx/o PE Hx/o IBS Hx/o Interstitial Cystitis Hx/o Rheumatic Fever (RF) Plan: She is now clinically stable Continue PT/OT SW/CM for d/c planning Additional orders as above Recommend NH placement: weak and unsteady Code status: 1 Prognosis is good-guarded LOS > 96 hrs for SNF/NH placement
[2016-12-28] MEDS: Gabapentin 600 MG Tab PO SCH ×2 (09:13→20:45)
[2016-12-28] MEDS: Metoprolol Succinate 25 MG Tab.ER PO SCH (09:14)
[2016-12-28] MEDS: Losartan 100 MG Tab PO SCH (09:14)
[2016-12-28] MEDS: Docusate Sodium 100 MG Cap PO SCH ×2 (09:14→20:45)
[2016-12-28] MEDS: Multivitamins with Minerals/Folic Acid/Lutein/Zeaxanth Tab PO SCH (09:14)
[2016-12-28] MEDS: amLODIPine 10 MG Tab PO SCH (09:15)
[2016-12-28] MEDS: Furosemide 40 MG Tab PO SCH (09:15)
[2016-12-28] MEDS: Insulin Aspart 100 Units/ML 3 ML Pen SUBCUT SCH ×2 (09:15→20:48)
[2016-12-28] MEDS: Aspirin 81 MG Tab.Chew PO SCH (09:15)
[2016-12-28] MEDS: Cholecalciferol (Vitamin D3) 1,000 Unit Tab PO SCH (09:15)
[2016-12-28] MEDS: cefTRIAXone 1 GM in Sodium Chloride 0.9% 100 ML IV SCH (09:16)
[2016-12-28] MEDS: metFORMIN 500 MG Tab PO SCH (20:44)
[2016-12-28] MEDS: Simvastatin 20 MG Tab PO SCH (20:46)
[2016-12-28] MEDS: traZODone 50 MG Tab PO SCH (20:47)
[2016-12-29] MEDS: Heparin Sodium 5,000 Units/ML Vial SUBCUT SCH ×4 (01:48→17:45)
[2016-12-29] MEDS: Levothyroxine 50 MCG Tab PO SCH (05:48)
--- NOTE | 2016-12-29 06:21 | PCM.PN ---
- General Info Date of Service: 12/29/16 Admission Dx/Problem (Free Text): Admission Diagnosis/Problem Admission Diagnosis/Problem Congestive heart failure Subjective Update: Follow up Functional Status: Reports: pain controlled, tolerating diet, ambulating, urinating, new symptoms (woke up tired, she went to bed late with sleeping pill) - Review of Systems General: Reports: Weakness. Denies: Fever, Malaise, Chills HEENT: Reports: no symptoms Pulmonary: Reports: shortness of breath (baseline) Cardiovascular: Reports: Dyspnea on Exertion (with exertion). Denies: Chest Pain Gastrointestinal: Reports: Abdominal pain. Denies: Nausea, Vomiting Genitourinary: Reports: no symptoms Musculoskeletal: Reports: no symptoms Skin: Reports: no symptoms Neurological: Reports: Difficulty Walking, Weakness, Gait Disturbance. Denies: Confusion Psychiatric: Reports: agitation. Denies: depression, anxiety, hallucinations Systems Review Comment:: No acute issues. She is relatively well. - Patient Data Vitals - most recent: Last Vital Signs Temp 36.6 C 12/29/16 05:50 Pulse 64 12/29/16 05:50 Resp 16 12/29/16 05:50 BP 127/66 12/29/16 05:50 Pulse Ox 95 12/29/16 05:50 Weight - most recent: 99.246 kg I&O - last 24 hours: Intake & Output 12/28/16 12/28/16 12/29/16 14:59 22:59 06:59 Intake Total 800 280 500 Balance 800 280 500 Lab Results last 24 hrs: Laboratory Results - last 24 hr 12/28/16 12/28/16 12/28/16 Range/Units 06:19 06:55 06:55 WBC 6.08 (3.98-10.04) K/mm3 RBC 3.71 L (3.98-5.22) M/mm3 Hgb 10.8 L (11.2-15.7) gm/L Hct 35.2 (34.1-44.9) % MCV 94.9 H (79.4-94.8) fl MCH 29.1 (25.6-32.2) pg MCHC 30.7 L (32.2-35.5) g/dl RDW Std Deviation 51.7 H (36.4-46.3) fL Plt Count 217 (182-369) K/mm3 MPV 10.4 (9.4-12.3) fl Neut % (Auto) 81.8 H (34.0-71.1) % Lymph % (Auto) 11.7 L (19.3-51.7) % [place] % (Auto) 6.3 (4.7-12.5) % Eos % (Auto) 0 L (0.7-5.8) Baso % (Auto) 0.0 L (0.1-1.2) % Neut # (Auto) 4.98 (1.56-6.13) K/mm3 Lymph # (Auto) 0.71 L (1.18-3.74) K/mm3 [place] # (Auto) 0.38 H (0.24-0.36) K/mm3 Eos # (Auto) 0.00 L (0.04-0.36) K/mm3 Baso # (Auto) 0.00 L (0.01-0.08) K/mm3 Sodium 135 L (136-145) mEq/L Potassium 4.4 (3.5-5.1) mEq/L Chloride 98 (98-107) mEq/L Carbon Dioxide 30 (21-32) mEq/L Anion Gap 11.4 (5-15) BUN 34 H (7-18) mg/dL Creatinine 1.3 H (0.55-1.02) mg/dL Est Cr Clr Drug Dosing 23.55 mL/min Estimated GFR (MDRD) 39 (>60) mL/min BUN/Creatinine Ratio 26.2 H (14-18) Glucose 210 H (83-115) mg/dL POC Glucose 194 H (83-110) mg/dL Calcium 8.2 L (8.5-10.1) mg/dL Magnesium 2.4 (1.8-2.4) mg/dl 12/28/16 12/29/16 Range/Units 20:42 05:52 WBC (3.98-10.04) K/mm3 RBC (3.98-5.22) M/mm3 Hgb (11.2-15.7) gm/L Hct (34.1-44.9) % MCV (79.4-94.8) fl MCH (25.6-32.2) pg MCHC (32.2-35.5) g/dl RDW Std Deviation (36.4-46.3) fL Plt Count (182-369) K/mm3 MPV (9.4-12.3) fl Neut % (Auto) (34.0-71.1) % Lymph % (Auto) (19.3-51.7) % [place] % (Auto) (4.7-12.5) % Eos % (Auto) (0.7-5.8) Baso % (Auto) (0.1-1.2) % Neut # (Auto) (1.56-6.13) K/mm3 Lymph # (Auto) (1.18-3.74) K/mm3 [place] # (Auto) (0.24-0.36) K/mm3 Eos # (Auto) (0.04-0.36) K/mm3 Baso # (Auto) (0.01-0.08) K/mm3 Sodium (136-145) mEq/L Potassium (3.5-5.1) mEq/L Chloride (98-107) mEq/L Carbon Dioxide (21-32) mEq/L Anion Gap (5-15) BUN (7-18) mg/dL Creatinine (0.55-1.02) mg/dL Est Cr Clr Drug Dosing mL/min Estimated GFR (MDRD) (>60) mL/min BUN/Creatinine Ratio (14-18) Glucose (83-115) mg/dL POC Glucose 202 H 101 (83-110) mg/dL Calcium (8.5-10.1) mg/dL Magnesium (1.8-2.4) mg/dl [place] Results last 24 hrs: Microbiology 12/26/16 02:35 Aerobic Blood Culture - Preliminary Blood - Venous - Lab Draw NO GROWTH AFTER 3 DAYS Anaerobic Blood Culture - Preliminary NO GROWTH AFTER 3 DAYS 12/26/16 02:15 Aerobic Blood Culture - Preliminary Blood - Venous NO GROWTH AFTER 3 DAYS Anaerobic Blood Culture - Preliminary NO GROWTH AFTER 3 DAYS Med Orders - Current: Current Medications Acetaminophen (Tylenol) 650 mg PO Q4H PRN PRN Reason: Pain (Mild 1-3)/fever Last Admin: 12/25/16 21:27 Dose: 650 mg Hydrocodone Bitart/Acetaminophen ([place] 325-5 Mg) 1 tab PO Q4H PRN PRN Reason: Pain (moderate 4-6) Albuterol/Ipratropium (Duoneb 3.0-0.5 Mg/3 Ml) 3 ml NEB Q4H PRN PRN Reason: Shortness Of Breath/wheezing Amlodipine Besylate (Norvasc) 10 mg PO DAILY [facility] Last Admin: 12/28/16 09:15 Dose: Not Given Aspirin (Aspirin) 81 mg PO DAILY [facility] Last Admin: 12/28/16 09:15 Dose: 81 mg Bisacodyl (Dulcolax) 5 mg PO DAILY PRN PRN Reason: Constipation Cholecalciferol (Vitamin D3) 1,000 units PO DAILY [facility] Last Admin: 12/28/16 09:15 Dose: 1,000 units Dextrose/Water (Dextrose 50% In Water) 50 ml IVPUSH ASDIRECTED PRN PRN Reason: Hypoglycemia Docusate Sodium (Colace) 100 mg PO BID PRN PRN Reason: Constipation Docusate Sodium (Colace) 200 mg PO BID [facility] Last Admin: 12/28/16 20:45 Dose: 200 mg Furosemide (Lasix) 40 mg PO DAILY [facility] Last Admin: 12/28/16 09:15 Dose: 40 mg Gabapentin (Neurontin) 600 mg PO BID [facility] Last Admin: 12/28/16 20:45 Dose: 600 mg Heparin Sodium (Porcine) (Heparin Sodium) 5,000 units SUBCUT Q8H [facility] Last Admin: 12/29/16 01:48 Dose: 5,000 units Hydralazine HCl (Apresoline) 10 mg IVPUSH Q4H PRN PRN Reason: Hypertension Last Admin: 12/25/16 19:29 Dose: 10 mg Promethazine HCl 12.5 mg/ (Sodium Chloride) 50.5 mls @ 100 mls/hr IV Q6H PRN PRN Reason: Nausea/Vomiting Ceftriaxone Sodium 1 gm/ (Sodium Chloride) 100 mls @ 200 mls/hr IV Q24H [facility] Stop: 12/30/16 09:01 Last Admin: 12/28/16 09:16 Dose: 200 mls/hr Insulin Aspart (Novolog) 0 unit SUBCUT BID [facility] PRN Reason: Protocol Last Admin: 12/28/16 20:48 Dose: 4 units Levothyroxine Sodium (Synthroid) 50 mcg PO ACBRK [facility] Last Admin: 12/29/16 05:48 Dose: 50 mcg Lorazepam (Ativan) 0.5 mg IV Q6H PRN PRN Reason: Anxiety Losartan Potassium (Cozaar) 150 mg PO DAILY [facility] Last Admin: 12/28/16 09:14 Dose: Not Given Magnesium Sulfate (Pharmacy To Dose - Magnesium Replacement) 1 dose .XX ASDIRECTED [facility] Metformin HCl (Glucophage) 500 mg PO BIDMEALS [facility] Last Admin: 12/28/16 20:44 Dose: 500 mg Metoprolol Succinate (Toprol Xl) 25 mg PO DAILY [facility] Last Admin: 12/28/16 09:14 Dose: Not Given Metoprolol Tartrate (Lopressor) 5 mg IVPUSH Q4H PRN PRN Reason: Tachycardia Morphine Sulfate (Morphine) 0.5 mg IVPUSH Q4H PRN PRN Reason: Pain Stop: 12/30/16 18:00 Ondansetron HCl (Zofran) 4 mg IV Q6H PRN PRN Reason: Nausea/Vomiting Polyethylene Glycol (Miralax) 17 gm PO DAILY PRN PRN Reason: Constipation Last Admin: 12/27/16 18:10 Dose: 17 gm Polyethylene Glycol (Miralax) 17 gm PO BID PRN PRN Reason: Constipation Potassium Chloride (Pharmacy To Dose - Potassium Replacement) 1 dose .XX ASDIRECTED [facility] Senna/Docusate Sodium (Senna Plus) 1 tab PO BID PRN PRN Reason: Constipation Simvastatin (Zocor) 20 mg PO BEDTIME [facility] Last Admin: 12/28/16 20:46 Dose: 20 mg Sodium Chloride (Saline Flush) 10 ml FLUSH ASDIRECTED PRN PRN Reason: Keep Vein Open Last Admin: 12/25/16 16:04 Dose: 10 ml Tramadol HCl (Ultram) 50 mg PO Q6H PRN PRN Reason: Pain Trazodone HCl (Trazodone) 200 mg PO BEDTIME [facility] Last Admin: 12/28/16 20:47 Dose: 200 mg Vit A/Vit C/Vit E/Selen/Cu/Zn/Lutei (Icaps Mv) 1 tab PO DAILY [facility] Last Admin: 12/28/16 09:14 Dose: 1 tab Discontinued Medications Clonidine HCl (Catapres) 0.2 mg PO ONETIME ONE Stop: 12/25/16 21:17 Last Admin: 12/25/16 21:27 Dose: 0.2 mg Enoxaparin Sodium (Lovenox) 30 mg SUBCUT DAILY [facility] Last Admin: 12/26/16 10:11 Dose: Not Given Furosemide (Lasix) 40 mg IVPUSH NOW ONE Stop: 12/25/16 16:37 Last Admin: 12/25/16 16:54 Dose: 40 mg Glipizide (Glucotrol) 2.5 mg PO BIDAC [facility] Last Admin: 12/28/16 06:20 Dose: 2.5 mg Hydrocortisone Sodium Succinate (Solu-Cortef) 100 mg IVPUSH Q6H [facility] Stop: 12/28/16 01:00 Last Admin: 12/27/16 23:49 Dose: 100 mg Furosemide 100 mg/ Sodium (Chloride) 100 mls @ 5 mls/hr IV TITRATE [facility] PRN Reason: Protocol Last Admin: 12/25/16 20:07 Dose: 5 mls/hr Potassium Chloride 10 meq/ (Premix) 100 mls @ 100 mls/hr IV Q1H [facility] Stop: 12/26/16 04:14 Last Admin: 12/26/16 03:37 Dose: 100 mls/hr Magnesium Sulfate 2 gm/ Premix 50 mls @ 25 mls/hr IV Q2H [facility] Stop: 12/26/16 04:44 Last Admin: 12/26/16 02:56 Dose: 25 mls/hr Magnesium Sulfate (Magnesium Sulfate 2 Gm In Water 50 Ml) Confirm Administered Dose 50 mls @ as directed .ROUTE .STK-MED ONE Stop: 12/26/16 01:57 Last Admin: 12/26/16 02:55 Dose: 2 gm Dopamine HCl/Dextrose (Dopamine In D5w 400 Mg/250 Ml) 400 mg in 250 mls @ 7.892 mls/hr IV TITRATE [facility]REYA; 2 MCG/KG/MIN PRN Reason: Protocol Last Titration: 12/26/16 14:32 Dose: 0 mcg/kg/min, 0 mls/hr Sodium Chloride (Normal Saline) 1,000 mls @ 25 mls/hr IV ASDIRECTED [facility] Stop: 12/31/16 17:00 Last Admin: 12/27/16 09:11 Dose: 25 mls/hr Metformin HCl (Glucophage) 500 mg PO WITHBREAKFAST [facility] Last Admin: 12/26/16 06:44 Dose: Not Given Metoprolol Tartrate (Lopressor) 5 mg IVPUSH ONETIME ONE Stop: 12/25/16 15:43 Last Admin: 12/25/16 16:04 Dose: 5 mg Morphine Sulfate (Morphine) 1 mg IVPUSH Q4H PRN PRN Reason: Pain Stop: 12/30/16 18:00 Nitrofurantoin Macrocrystals (Macrobid) 100 mg PO ONETIME ONE Stop: 12/25/16 17:18 Last Admin: 12/25/16 17:31 Dose: 100 mg - Exam Quality Assessment: supplemental oxygen General: alert, oriented, cooperative, other (Morbidly Obese) HEENT: Pupils equal, Pupils reactive, EOMI, Mucous membr. moist/pink Neck: supple, trachea midline, no JVD, other (short and thick) Lungs: Clear to auscultation, Normal respiratory effort Cardiovascular: Regular Rate, Regular Rhythm Abdomen: bowel sounds present, soft, no tenderness, no distension (Female) Exam: Deferred Back Exam: Normal Inspection, Decreased Range of Motion Extremities: normal pulses, no tenderness/swelling, no clubbing, no cyanosis, no calf tenderness, edema Peripheral Pulses: 2+: Dorsalis Pedis (L), Dorsalis Pedis (R) Skin: warm, dry, intact Neurological: no new focal deficit Psy/Mental Status: alert, normal affect, normal mood - Problem List Review Problem List Initiated/Reviewed/Updated: Yes - My Orders Last 24 Hours: My Active Orders 12/28/16 17:00 metFORMIN [Glucophage] 500 mg PO BIDMEALS 12/29/16 05:11 BASIC METABOLIC PANEL,BMP [CHEM] AM CBC WITH AUTO DIFF [HEME] AM MAGNESIUM [CHEM] AM 12/30/16 05:11 BASIC METABOLIC PANEL,BMP [CHEM] AM CBC WITH AUTO DIFF [HEME] AM MAGNESIUM [CHEM] AM 12/30/16 07:00 CBC W/O DIFF,HEMOGRAM [HEME] MOTH@0701/02/17 07:00 CBC W/O DIFF,HEMOGRAM [HEME] MOTH@0701/06/17 07:00 CBC W/O DIFF,HEMOGRAM [HEME] MOTH@0700 01/09/17 07:00 CBC W/O DIFF,HEMOGRAM [HEME] MOTH@0701/13/17 07:00 CBC W/O DIFF,HEMOGRAM [HEME] MOTH@0701/16/17 07:00 CBC W/O DIFF,HEMOGRAM [HEME] MOTH@0700 - Plan Plan:: Assessment/Plan: Acute: HF w/ Preserved EF - Recent 2D echo 65% LEVF on 10/20/2015 with regional wall abnormality - She has significant valvular dysfunction - Had a hx/o RF - HF protocol: routine weight check, Is/Os, lasix drip, and salt restriction - Morphine and Supplemental O2 - 2D echo: completed awaiting report - CE x 1 now and in am and D-dimer level: all normal - CXR shows no change from yesterday: still showing pulmonary congestion - New 2D echo: left ventricular ejection fraction 65-70%. Severe dilated left atrium. Moderate aortic valve stenosis. Moderate mitral stenosis. Severe mitral annular calcification. Right ventricular systolic pressure is elevated at 72 mm per mercury. No regional motion abnormalities Morbid Obesity - Dietary consult for weight management - Advised LSM Probable KELLEE - STOB BANG is 4: Intermediate risk - Sleep study outpatient DM2 - BS is remains controlled - Will not resume Metformin 500 mg po BID - Discontinue glucotrol 2.5 mg po BID - ADA diet Generalized Weakness - 2/2 current illness - Consider SNF/NH placement - Patient and , agreeable High Fall Risk - She is morbidly Obese - Unsteady gait Resolved: S/p Malignant Hypertension - Possibly 2/2 non-compliance - Came in with BP 174/114 - 168/111 upon admission to the floor S/p Hypotension - Cannot r/o possible cardiogenic in etiology - Maybe 2/2 multiple BP meds she got including clonidine - Was also on Lasix drip - She is still on dopamine drip to maintain MAP 65 of higher - Check cortisol level - Solu-cortef 100 mg IV Q6 for pressure support S/p UTI - UA not quite impressive but she is symptomatic: dysuria and frequency - Risk Factors: Chronic Urinary Frequency, Urinary Incontinence, Restricted Mobility and Wears Pad - Received Macrobid in ED - UA Cx: Suggestive of contamination - On Rocephin IV 1 gram daily - Discontinue IV Rocephin today Chronic: HLD HTN Constipation GERD Hx/o PUD OA/DJS DM2 Hypothyroidism SUSIE Depression Nocturnal Hypoxia on 2.5 L NC at night Seborrheic Dermatitis Dysphagia Abdominal Pain/Diverticulosis Hx/o PE Hx/o IBS Hx/o Interstitial Cystitis Hx/o Rheumatic Fever (RF) Plan: She remains clinically stable Continue PT/OT SW/CM for d/c planning Additional orders as above Recommend NH placement: weak and unsteady Code status: 1 LOS > 96 hrs for SNF/NH placement
[2016-12-29] MEDS: cefTRIAXone 1 GM in Sodium Chloride 0.9% 100 ML IV SCH (08:33)
[2016-12-29] MEDS: Gabapentin 600 MG Tab PO SCH ×2 (08:36→20:34)
[2016-12-29] MEDS: Metoprolol Succinate 25 MG Tab.ER PO SCH (08:36)
[2016-12-29] MEDS: Aspirin 81 MG Tab.Chew PO SCH (08:37)
[2016-12-29] MEDS: Losartan 100 MG Tab PO SCH (08:37)
[2016-12-29] MEDS: Furosemide 40 MG Tab PO SCH (08:37)
[2016-12-29] MEDS: Docusate Sodium 100 MG Cap PO SCH ×2 (08:37→20:35)
[2016-12-29] MEDS: amLODIPine 10 MG Tab PO SCH (08:37)
[2016-12-29] MEDS: Multivitamins with Minerals/Folic Acid/Lutein/Zeaxanth Tab PO SCH (08:37)
[2016-12-29] MEDS: metFORMIN 500 MG Tab PO SCH ×2 (08:37→17:44)
[2016-12-29] MEDS: Cholecalciferol (Vitamin D3) 1,000 Unit Tab PO SCH (08:38)
[2016-12-29] MEDS: Insulin Aspart 100 Units/ML 3 ML Pen SUBCUT SCH ×2 (08:38→20:38)
[2016-12-29] MEDS: Simvastatin 20 MG Tab PO SCH (20:34)
[2016-12-29] MEDS: traZODone 50 MG Tab PO SCH (20:34)
[2016-12-30] MEDS: Heparin Sodium 5,000 Units/ML Vial SUBCUT SCH ×3 (02:27→17:08)
[2016-12-30] MEDS: metFORMIN 500 MG Tab PO SCH ×2 (05:59→17:08)
[2016-12-30] MEDS: Levothyroxine 50 MCG Tab PO SCH (05:59)
[2016-12-30] MEDS ORDERED: Magnesium Sulfate/Water 2 GM in Premix Bag 1 BAG IV ONE (08:30)
[2016-12-30] MEDS: Aspirin 81 MG Tab.Chew PO SCH (09:28)
[2016-12-30] MEDS: Losartan 100 MG Tab PO SCH (09:28)
[2016-12-30] MEDS: Multivitamins with Minerals/Folic Acid/Lutein/Zeaxanth Tab PO SCH (09:28)
[2016-12-30] MEDS: Cholecalciferol (Vitamin D3) 1,000 Unit Tab PO SCH (09:29)
[2016-12-30] MEDS: amLODIPine 10 MG Tab PO SCH (09:29)
[2016-12-30] MEDS: Metoprolol Succinate 25 MG Tab.ER PO SCH (09:29)
[2016-12-30] MEDS: Docusate Sodium 100 MG Cap PO SCH ×2 (09:29→21:10)
[2016-12-30] MEDS: Gabapentin 600 MG Tab PO SCH ×2 (09:29→21:09)
[2016-12-30] MEDS: Furosemide 40 MG Tab PO SCH (09:29)
[2016-12-30] MEDS: Insulin Aspart 100 Units/ML 3 ML Pen SUBCUT SCH ×2 (09:40→21:20)
--- NOTE | 2016-12-30 11:10 | PCM.PN ---
- General Info Date of Service: 12/30/16 Functional Status: Reports: pain controlled, tolerating diet, urinating - Review of Systems General: Reports: No Symptoms HEENT: Reports: no symptoms Pulmonary: Reports: no symptoms Cardiovascular: Reports: No Symptoms Gastrointestinal: Reports: No symptoms Genitourinary: Reports: no symptoms Musculoskeletal: Reports: no symptoms Skin: Reports: no symptoms Neurological: Reports: No Symptoms Psychiatric: Reports: no symptoms - Patient Data Vitals - most recent: Last Vital Signs Temp 36.5 C 12/30/16 07:40 Pulse 70 12/30/16 09:29 Resp 18 12/30/16 07:40 BP 136/64 12/30/16 09:29 Pulse Ox 92 L 12/30/16 08:20 Weight - most recent: 98.293 kg I&O - last 24 hours: Intake & Output 12/29/16 12/30/16 12/30/16 22:59 06:59 14:59 Intake Total 970 600 120 Output Total 1400 950 Balance -430 -350 120 Lab Results last 24 hrs: Laboratory Results - last 24 hr 12/29/16 12/29/16 12/29/16 Range/Units 12:46 13:00 20:33 WBC (3.98-10.04) K/mm3 RBC (3.98-5.22) M/mm3 Hgb (11.2-15.7) gm/L Hct (34.1-44.9) % MCV (79.4-94.8) fl MCH (25.6-32.2) pg MCHC (32.2-35.5) g/dl RDW Std Deviation (36.4-46.3) fL Plt Count (182-369) K/mm3 MPV (9.4-12.3) fl Neut % (Auto) (34.0-71.1) % Lymph % (Auto) (19.3-51.7) % [place] % (Auto) (4.7-12.5) % Eos % (Auto) (0.7-5.8) Baso % (Auto) (0.1-1.2) % Neut # (Auto) (1.56-6.13) K/mm3 Lymph # (Auto) (1.18-3.74) K/mm3 [place] # (Auto) (0.24-0.36) K/mm3 Eos # (Auto) (0.04-0.36) K/mm3 Baso # (Auto) (0.01-0.08) K/mm3 Manual Slide Review Sodium (136-145) mEq/L Potassium (3.5-5.1) mEq/L Chloride (98-107) mEq/L Carbon Dioxide (21-32) mEq/L Anion Gap (5-15) BUN (7-18) mg/dL Creatinine (0.55-1.02) mg/dL Est Cr Clr Drug Dosing mL/min Estimated GFR (MDRD) (>60) mL/min BUN/Creatinine Ratio (14-18) Glucose (83-115) mg/dL POC Glucose 114 H 203 H (83-110) mg/dL Calcium (8.5-10.1) mg/dL Magnesium (1.8-2.4) mg/dl Urine Color Light yellow (Yellow) Urine Appearance Clear (Clear) Urine pH 6.0 (5.0-8.0) Ur Specific [place] 1.015 (1.005-1.030) Urine Protein Negative (Negative) Urine Glucose (UA) Negative (Negative) Urine Ketones Negative (Negative) Urine Occult Blood Negative (Negative) Urine Nitrite Negative (Negative) Urine Bilirubin Negative (Negative) Urine Urobilinogen 0.2 (0.2-1.0) Ur Leukocyte Esterase Negative (Negative) Urine RBC Not seen (0-5) /hpf Urine WBC 0-5 (0-5) /hpf Ur Epithelial Cells 0-5 (0-5) /hpf Urine Bacteria Not seen (FEW) /hpf Urine Mucus Not seen (FEW) /hpf 12/30/16 12/30/16 12/30/16 Range/Units 04:45 04:45 06:54 WBC 5.29 (3.98-10.04) K/mm3 RBC 3.75 L (3.98-5.22) M/mm3 Hgb 11.0 L (11.2-15.7) gm/L Hct 36.8 (34.1-44.9) % MCV 98.1 H (79.4-94.8) fl MCH 29.3 (25.6-32.2) pg MCHC 29.9 L (32.2-35.5) g/dl RDW Std Deviation 55.1 H (36.4-46.3) fL Plt Count 225 (182-369) K/mm3 MPV 10.6 (9.4-12.3) fl Neut % (Auto) 56.9 (34.0-71.1) % Lymph % (Auto) 27.2 (19.3-51.7) % [place] % (Auto) 13.0 H (4.7-12.5) % Eos % (Auto) 2.3 (0.7-5.8) Baso % (Auto) 0.2 (0.1-1.2) % Neut # (Auto) 3.01 (1.56-6.13) K/mm3 Lymph # (Auto) 1.44 (1.18-3.74) K/mm3 [place] # (Auto) 0.69 H (0.24-0.36) K/mm3 Eos # (Auto) 0.12 (0.04-0.36) K/mm3 Baso # (Auto) 0.01 (0.01-0.08) K/mm3 Manual Slide Review Abnormal smear Sodium 141 (136-145) mEq/L Potassium 4.3 (3.5-5.1) mEq/L Chloride 102 (98-107) mEq/L Carbon Dioxide 35 H (21-32) mEq/L Anion Gap 8.3 (5-15) BUN 26 H (7-18) mg/dL Creatinine 1.0 (0.55-1.02) mg/dL Est Cr Clr Drug Dosing 30.62 mL/min Estimated GFR (MDRD) 53 (>60) mL/min BUN/Creatinine Ratio 26.0 H (14-18) Glucose 135 H (83-115) mg/dL POC Glucose 128 H (83-110) mg/dL Calcium 8.5 (8.5-10.1) mg/dL Magnesium 1.7 L (1.8-2.4) mg/dl Urine Color (Yellow) Urine Appearance (Clear) Urine pH (5.0-8.0) Ur Specific [place] (1.005-1.030) Urine Protein (Negative) Urine Glucose (UA) (Negative) Urine Ketones (Negative) Urine Occult Blood (Negative) Urine Nitrite (Negative) Urine Bilirubin (Negative) Urine Urobilinogen (0.2-1.0) Ur Leukocyte Esterase (Negative) Urine RBC (0-5) /hpf Urine WBC (0-5) /hpf Ur Epithelial Cells (0-5) /hpf Urine Bacteria (FEW) /hpf Urine Mucus (FEW) /hpf [place] Results last 24 hrs: Microbiology 12/26/16 02:35 Aerobic Blood Culture - Preliminary Blood - Venous - Lab Draw NO GROWTH AFTER 4 DAYS Anaerobic Blood Culture - Preliminary NO GROWTH AFTER 4 DAYS 12/26/16 02:15 Aerobic Blood Culture - Preliminary Blood - Venous NO GROWTH AFTER 4 DAYS Anaerobic Blood Culture - Preliminary NO GROWTH AFTER 3 DAYS Med Orders - Current: Current Medications Acetaminophen (Tylenol) 650 mg PO Q4H PRN PRN Reason: Pain (Mild 1-3)/fever Last Admin: 12/25/16 21:27 Dose: 650 mg Hydrocodone Bitart/Acetaminophen ([place] 325-5 Mg) 1 tab PO Q4H PRN PRN Reason: Pain (moderate 4-6) Albuterol/Ipratropium (Duoneb 3.0-0.5 Mg/3 Ml) 3 ml NEB Q4H PRN PRN Reason: Shortness Of Breath/wheezing Amlodipine Besylate (Norvasc) 10 mg PO DAILY [facility] Last Admin: 12/30/16 09:29 Dose: 10 mg Aspirin (Aspirin) 81 mg PO DAILY [facility] Last Admin: 12/30/16 09:28 Dose: 81 mg Bisacodyl (Dulcolax) 5 mg PO DAILY PRN PRN Reason: Constipation Cholecalciferol (Vitamin D3) 1,000 units PO DAILY [facility] Last Admin: 12/30/16 09:29 Dose: 1,000 units Dextrose/Water (Dextrose 50% In Water) 50 ml IVPUSH ASDIRECTED PRN PRN Reason: Hypoglycemia Docusate Sodium (Colace) 100 mg PO BID PRN PRN Reason: Constipation Docusate Sodium (Colace) 200 mg PO BID [facility] Last Admin: 12/30/16 09:29 Dose: 200 mg Furosemide (Lasix) 40 mg PO DAILY [facility] Last Admin: 12/30/16 09:29 Dose: 40 mg Gabapentin (Neurontin) 600 mg PO BID [facility] Last Admin: 12/30/16 09:29 Dose: 600 mg Heparin Sodium (Porcine) (Heparin Sodium) 5,000 units SUBCUT Q8H [facility] Last Admin: 12/30/16 09:30 Dose: 5,000 units Hydralazine HCl (Apresoline) 10 mg IVPUSH Q4H PRN PRN Reason: Hypertension Last Admin: 12/25/16 19:29 Dose: 10 mg Promethazine HCl 12.5 mg/ (Sodium Chloride) 50.5 mls @ 100 mls/hr IV Q6H PRN PRN Reason: Nausea/Vomiting Insulin Aspart (Novolog) 0 unit SUBCUT BID@0700,2100 [facility] PRN Reason: Protocol Levothyroxine Sodium (Synthroid) 50 mcg PO ACBRK [facility] Last Admin: 12/30/16 05:59 Dose: 50 mcg Lorazepam (Ativan) 0.5 mg IV Q6H PRN PRN Reason: Anxiety Losartan Potassium (Cozaar) 150 mg PO DAILY [facility] Last Admin: 12/30/16 09:28 Dose: 150 mg Magnesium Sulfate (Pharmacy To Dose - Magnesium Replacement) 1 dose .XX ASDIRECTED [facility] Metformin HCl (Glucophage) 500 mg PO BIDMEALS [facility] Last Admin: 12/30/16 05:59 Dose: 500 mg Metoprolol Succinate (Toprol Xl) 25 mg PO DAILY [facility] Last Admin: 12/30/16 09:29 Dose: 25 mg Metoprolol Tartrate (Lopressor) 5 mg IVPUSH Q4H PRN PRN Reason: Tachycardia Morphine Sulfate (Morphine) 0.5 mg IVPUSH Q4H PRN PRN Reason: Pain Stop: 12/30/16 18:00 Ondansetron HCl (Zofran) 4 mg IV Q6H PRN PRN Reason: Nausea/Vomiting Polyethylene Glycol (Miralax) 17 gm PO BID PRN PRN Reason: Constipation Potassium Chloride (Pharmacy To Dose - Potassium Replacement) 1 dose .XX ASDIRECTED [facility] Senna/Docusate Sodium (Senna Plus) 1 tab PO BID PRN PRN Reason: Constipation Simvastatin (Zocor) 20 mg PO BEDTIME [facility] Last Admin: 12/29/16 20:34 Dose: 20 mg Sodium Chloride (Saline Flush) 10 ml FLUSH ASDIRECTED PRN PRN Reason: Keep Vein Open Last Admin: 12/25/16 16:04 Dose: 10 ml Tramadol HCl (Ultram) 50 mg PO Q6H PRN PRN Reason: Pain Trazodone HCl (Trazodone) 200 mg PO BEDTIME [facility] Last Admin: 12/29/16 20:34 Dose: 200 mg Vit A/Vit C/Vit E/Selen/Cu/Zn/Lutei (Icaps Mv) 1 tab PO DAILY [facility] Last Admin: 12/30/16 09:28 Dose: 1 tab Discontinued Medications Clonidine HCl (Catapres) 0.2 mg PO ONETIME ONE Stop: 12/25/16 21:17 Last Admin: 12/25/16 21:27 Dose: 0.2 mg Enoxaparin Sodium (Lovenox) 30 mg SUBCUT DAILY [facility] Last Admin: 12/26/16 10:11 Dose: Not Given Furosemide (Lasix) 40 mg IVPUSH NOW ONE Stop: 12/25/16 16:37 Last Admin: 12/25/16 16:54 Dose: 40 mg Glipizide (Glucotrol) 2.5 mg PO BIDAC [facility] Last Admin: 12/28/16 06:20 Dose: 2.5 mg Hydrocortisone Sodium Succinate (Solu-Cortef) 100 mg IVPUSH Q6H [facility] Stop: 12/28/16 01:00 Last Admin: 12/27/16 23:49 Dose: 100 mg Furosemide 100 mg/ Sodium (Chloride) 100 mls @ 5 mls/hr IV TITRATE [facility] PRN Reason: Protocol Last Admin: 12/25/16 20:07 Dose: 5 mls/hr Ceftriaxone Sodium 1 gm/ (Sodium Chloride) 100 mls @ 200 mls/hr IV Q24H [facility] Stop: 12/30/16 09:01 Last Admin: 12/29/16 08:33 Dose: 200 mls/hr Potassium Chloride 10 meq/ (Premix) 100 mls @ 100 mls/hr IV Q1H [facility] Stop: 12/26/16 04:14 Last Admin: 12/26/16 03:37 Dose: 100 mls/hr Magnesium Sulfate 2 gm/ Premix 50 mls @ 25 mls/hr IV Q2H [facility] Stop: 12/26/16 04:44 Last Admin: 12/26/16 02:56 Dose: 25 mls/hr Magnesium Sulfate (Magnesium Sulfate 2 Gm In Water 50 Ml) Confirm Administered Dose 50 mls @ as directed .ROUTE .STK-MED ONE Stop: 12/26/16 01:57 Last Admin: 12/26/16 02:55 Dose: 2 gm Dopamine HCl/Dextrose (Dopamine In D5w 400 Mg/250 Ml) 400 mg in 250 mls @ 7.892 mls/hr IV TITRATE SHREYA; 2 MCG/KG/MIN PRN Reason: Protocol Last Titration: 12/26/16 14:32 Dose: 0 mcg/kg/min, 0 mls/hr Sodium Chloride (Normal Saline) 1,000 mls @ 25 mls/hr IV ASDIRECTED [facility]RE[facility] Stop: 12/31/16 17:00 Last Admin: 12/27/16 09:11 Dose: 25 mls/hr Magnesium Sulfate 2 gm/ Premix 50 mls @ 25 mls/hr IV ONETIME ONE Stop: 12/30/16 10:29 Last Admin: 12/30/16 09:27 Dose: 25 mls/hr Insulin Aspart (Novolog) 0 unit SUBCUT BID [facility] PRN Reason: Protocol Last Admin: 12/30/16 09:40 Dose: Not Given Metformin HCl (Glucophage) 500 mg PO WITHBREAKFAST [facility] Last Admin: 12/26/16 06:44 Dose: Not Given Metoprolol Tartrate (Lopressor) 5 mg IVPUSH ONETIME ONE Stop: 12/25/16 15:43 Last Admin: 12/25/16 16:04 Dose: 5 mg Morphine Sulfate (Morphine) 1 mg IVPUSH Q4H PRN PRN Reason: Pain Stop: 12/30/16 18:00 Nitrofurantoin Macrocrystals (Macrobid) 100 mg PO ONETIME ONE Stop: 12/25/16 17:18 Last Admin: 12/25/16 17:31 Dose: 100 mg Polyethylene Glycol (Miralax) 17 gm PO DAILY PRN PRN Reason: Constipation Last Admin: 12/27/16 18:10 Dose: 17 gm - Exam Quality Assessment: DVT prophylaxis General: alert, oriented, cooperative, no acute distress HEENT: Pupils equal, Pupils reactive, EOMI Neck: supple, trachea midline Lungs: Normal respiratory effort, Decreased breath sounds Cardiovascular: Regular Rate Abdomen: bowel sounds present, soft, no tenderness, no distension (Female) Exam: Deferred Back Exam: Normal Inspection Extremities: normal pulses Skin: warm Neurological: no new focal deficit Psy/Mental Status: alert, normal affect, normal mood - Problem List & Annotations (1) Congestive heart failure (CHF) SNOMED Code(s): 53591301 Code(s): I50.9 - HEART FAILURE, UNSPECIFIED Status: Acute Current Visit: Yes Qualifiers: Congestive heart failure type: unspecified congestive heart failure type Congestive heart failure chronicity: acute Qualified Code(s): I50.9 - Heart failure, unspecified (2) UTI, Urinary tract infectious disease SNOMED Code(s): 47515523 Code(s): N39.0 - URINARY TRACT INFECTION, SITE NOT SPECIFIED Status: Acute Current Visit: Yes (3) Hypertension SNOMED Code(s): 62368270 Code(s): I10 - ESSENTIAL (PRIMARY) HYPERTENSION Status: Chronic Priority : Low Current Visit: Yes Onset Date: 10/20/15 Qualifiers: Hypertension type: essential hypertension Qualified Code(s): I10 - Essential (primary) hypertension Annotation/Comment:: - Fairly stable - Continue BP meds - Monitor fluid and salt intake - Problem List Review Problem List Initiated/Reviewed/Updated: Yes - Plan Plan:: Assessment/Plan: Acute: HF w/ Preserved EF - Recent 2D echo 65% LEVF on 10/20/2015 with regional wall abnormality - She has significant valvular dysfunction - Had a hx/o RF - HF protocol: routine weight check, Is/Os, lasix drip, and salt restriction - Morphine and Supplemental O2 - 2D echo: completed awaiting report - CE x 1 now and in am and D-dimer level: all normal - CXR shows no change from yesterday: still showing pulmonary congestion - New 2D echo: left ventricular ejection fraction 65-70%. Severe dilated left atrium. Moderate aortic valve stenosis. Moderate mitral stenosis. Severe mitral annular calcification. Right ventricular systolic pressure is elevated at 72 mm per mercury. No regional motion abnormalities Morbid Obesity - Dietary consult for weight management - Advised LSM Probable KELLEE - STOB BANG is 4: Intermediate risk - Sleep study outpatient DM2 - BS remains controlled - Will not resume Metformin 500 mg po BID - Discontinue glucotrol 2.5 mg po BID - ADA diet Generalized Weakness - 2/2 current illness - Consider SNF/NH placement - Patient and , agreeable High Fall Risk - She is morbidly Obese - Unsteady gait Resolved: S/p Malignant Hypertension - Possibly 2/2 non-compliance - Came in with BP 174/114 - 168/111 upon admission to the floor S/p Hypotension - Doubt cardiogenic in etiology - Maybe 2/2 multiple BP meds she got including clonidine - Was also on Lasix drip - She is still on dopamine drip to maintain MAP 65 of higher - Check cortisol level - Solu-cortef 100 mg IV Q6 for pressure support S/p UTI - UA not quite impressive but she is symptomatic: dysuria and frequency - Risk Factors: Chronic Urinary Frequency, Urinary Incontinence, Restricted Mobility and Wears Pad - Received Macrobid in ED - UA Cx: Suggestive of contamination - On Rocephin IV 1 gram daily - Discontinue IV Rocephin today Chronic: HLD HTN Constipation GERD Hx/o PUD OA/DJS DM2 Hypothyroidism SUSIE Depression Nocturnal Hypoxia on 2.5 L NC at night Seborrheic Dermatitis Dysphagia Abdominal Pain/Diverticulosis Hx/o PE Hx/o IBS Hx/o Interstitial Cystitis Hx/o Rheumatic Fever (RF) Plan: She remains clinically stable Continue PT/OT SW/CM for d/c planning Additional orders as above Recommend NH placement: weak and unsteady Code status: 1 LOS > 96 hrs for SNF/NH placement
[2016-12-30] MEDS ORDERED: Nystatin Topical Powder 15 GM Bottle TOP PRN (15:41)
[2016-12-30] MEDS ORDERED: Phenazopyridine 95 MG Tab PO SCH (21:00)
[2016-12-30] MEDS: cefTRIAXone 1 GM in Sodium Chloride 0.9% 100 ML IV SCH (21:05)
[2016-12-30] MEDS: traZODone 50 MG Tab PO SCH (21:09)
[2016-12-30] MEDS: Simvastatin 20 MG Tab PO SCH (21:10)
[2016-12-31] MEDS: Heparin Sodium 5,000 Units/ML Vial SUBCUT SCH ×3 (02:57→17:21)
[2016-12-31] MEDS: Insulin Aspart 100 Units/ML 3 ML Pen SUBCUT SCH ×2 (06:28→21:19)
[2016-12-31] MEDS: metFORMIN 500 MG Tab PO SCH ×2 (06:28→16:45)
[2016-12-31] MEDS: Levothyroxine 50 MCG Tab PO SCH (06:28)
[2016-12-31] MEDS: Docusate Sodium 100 MG Cap PO SCH ×2 (08:41→21:21)
[2016-12-31] MEDS: Cholecalciferol (Vitamin D3) 1,000 Unit Tab PO SCH (08:41)
[2016-12-31] MEDS: Gabapentin 600 MG Tab PO SCH ×2 (08:41→21:21)
[2016-12-31] MEDS: Multivitamins with Minerals/Folic Acid/Lutein/Zeaxanth Tab PO SCH (08:41)
[2016-12-31] MEDS: Aspirin 81 MG Tab.Chew PO SCH (08:41)
[2016-12-31] MEDS: Furosemide 40 MG Tab PO SCH (08:41)
[2016-12-31] MEDS: Losartan 100 MG Tab PO SCH (08:42)
[2016-12-31] MEDS: amLODIPine 10 MG Tab PO SCH (08:42)
[2016-12-31] MEDS: Metoprolol Succinate 25 MG Tab.ER PO SCH (08:42)
--- NOTE | 2016-12-31 08:56 | PCM.PN ---
- General Info Date of Service: 12/31/16 Functional Status: Reports: pain controlled, tolerating diet, ambulating - Review of Systems General: Reports: Weakness, Fatigue HEENT: Reports: no symptoms Pulmonary: Reports: shortness of breath Cardiovascular: Reports: No Symptoms Gastrointestinal: Reports: No symptoms Genitourinary: Reports: no symptoms Musculoskeletal: Reports: no symptoms Skin: Reports: no symptoms Neurological: Reports: No Symptoms Psychiatric: Reports: no symptoms - Patient Data Vitals - most recent: Last Vital Signs Temp 36.6 C 12/31/16 08:08 Pulse 61 12/31/16 08:42 Resp 16 12/31/16 08:08 BP 118/66 12/31/16 08:42 Pulse Ox 91 L 12/31/16 08:08 Weight - most recent: 97.749 kg I&O - last 24 hours: Intake & Output 12/30/16 12/31/16 12/31/16 22:59 06:59 14:59 Intake Total 1150 600 Output Total 600 1800 Balance 550 -1200 Lab Results last 24 hrs: Laboratory Results - last 24 hr 12/30/16 12/31/16 Range/Units 21:12 06:27 POC Glucose 165 H 150 H (83-110) mg/dL [place] Results last 24 hrs: Microbiology 12/26/16 02:35 Aerobic Blood Culture - Preliminary Blood - Venous - Lab Draw NO GROWTH AFTER 5 DAYS Anaerobic Blood Culture - Preliminary NO GROWTH AFTER 5 DAYS 12/26/16 02:15 Aerobic Blood Culture - Preliminary Blood - Venous NO GROWTH AFTER 5 DAYS Anaerobic Blood Culture - Preliminary NO GROWTH AFTER 5 DAYS Med Orders - Current: Current Medications Acetaminophen (Tylenol) 650 mg PO Q4H PRN PRN Reason: Pain (Mild 1-3)/fever Last Admin: 12/25/16 21:27 Dose: 650 mg Hydrocodone Bitart/Acetaminophen ([place] 325-5 Mg) 1 tab PO Q4H PRN PRN Reason: Pain (moderate 4-6) Albuterol/Ipratropium (Duoneb 3.0-0.5 Mg/3 Ml) 3 ml NEB Q4H PRN PRN Reason: Shortness Of Breath/wheezing Last Admin: 12/30/16 11:27 Dose: 3 ml Amlodipine Besylate (Norvasc) 10 mg PO DAILY SHREYA Last Admin: 12/31/16 08:42 Dose: 10 mg Aspirin (Aspirin) 81 mg PO DAILY [facility] Last Admin: 12/31/16 08:41 Dose: 81 mg Bisacodyl (Dulcolax) 5 mg PO DAILY PRN PRN Reason: Constipation Cholecalciferol (Vitamin D3) 1,000 units PO DAILY [facility] Last Admin: 12/31/16 08:41 Dose: 1,000 units Dextrose/Water (Dextrose 50% In Water) 50 ml IVPUSH ASDIRECTED PRN PRN Reason: Hypoglycemia Docusate Sodium (Colace) 100 mg PO BID PRN PRN Reason: Constipation Docusate Sodium (Colace) 200 mg PO BID [facility] Last Admin: 12/31/16 08:41 Dose: 200 mg Furosemide (Lasix) 40 mg PO DAILY [facility] Last Admin: 12/31/16 08:41 Dose: 40 mg Gabapentin (Neurontin) 600 mg PO BID [facility] Last Admin: 12/31/16 08:41 Dose: 600 mg Heparin Sodium (Porcine) (Heparin Sodium) 5,000 units SUBCUT Q8H [facility] Last Admin: 12/31/16 02:57 Dose: 5,000 units Hydralazine HCl (Apresoline) 10 mg IVPUSH Q4H PRN PRN Reason: Hypertension Last Admin: 12/25/16 19:29 Dose: 10 mg Promethazine HCl 12.5 mg/ (Sodium Chloride) 50.5 mls @ 100 mls/hr IV Q6H PRN PRN Reason: Nausea/Vomiting Ceftriaxone Sodium 1 gm/ (Sodium Chloride) 100 mls @ 200 mls/hr IV Q24H [facility] Last Admin: 12/30/16 21:05 Dose: 200 mls/hr Insulin Aspart (Novolog) 0 unit SUBCUT BID@0700,2100 [facility] PRN Reason: Protocol Last Admin: 12/31/16 06:28 Dose: 2 units Levothyroxine Sodium (Synthroid) 50 mcg PO ACBRK [facility] Last Admin: 12/31/16 06:28 Dose: 50 mcg Lorazepam (Ativan) 0.5 mg IV Q6H PRN PRN Reason: Anxiety Losartan Potassium (Cozaar) 150 mg PO DAILY [facility] Last Admin: 12/31/16 08:42 Dose: 150 mg Metformin HCl (Glucophage) 500 mg PO BIDMEALS [facility] Last Admin: 12/31/16 06:28 Dose: 500 mg Metoprolol Succinate (Toprol Xl) 25 mg PO DAILY [facility] Last Admin: 12/31/16 08:42 Dose: 25 mg Metoprolol Tartrate (Lopressor) 5 mg IVPUSH Q4H PRN PRN Reason: Tachycardia Nystatin (Nystop) 0 gm TOP QID PRN PRN Reason: Rash Ondansetron HCl (Zofran) 4 mg IV Q6H PRN PRN Reason: Nausea/Vomiting Polyethylene Glycol (Miralax) 17 gm PO BID PRN PRN Reason: Constipation Senna/Docusate Sodium (Senna Plus) 1 tab PO BID PRN PRN Reason: Constipation Simvastatin (Zocor) 20 mg PO BEDTIME [facility] Last Admin: 12/30/16 21:10 Dose: 20 mg Sodium Chloride (Saline Flush) 10 ml FLUSH ASDIRECTED PRN PRN Reason: Keep Vein Open Last Admin: 12/25/16 16:04 Dose: 10 ml Tramadol HCl (Ultram) 50 mg PO Q6H PRN PRN Reason: Pain Trazodone HCl (Trazodone) 200 mg PO BEDTIME [facility] Last Admin: 12/30/16 21:09 Dose: 200 mg Vit A/Vit C/Vit E/Selen/Cu/Zn/Lutei (Icaps Mv) 1 tab PO DAILY [facility] Last Admin: 12/31/16 08:41 Dose: 1 tab Discontinued Medications Clonidine HCl (Catapres) 0.2 mg PO ONETIME ONE Stop: 12/25/16 21:17 Last Admin: 12/25/16 21:27 Dose: 0.2 mg Enoxaparin Sodium (Lovenox) 30 mg SUBCUT DAILY [facility] Last Admin: 12/26/16 10:11 Dose: Not Given Furosemide (Lasix) 40 mg IVPUSH NOW ONE Stop: 12/25/16 16:37 Last Admin: 12/25/16 16:54 Dose: 40 mg Glipizide (Glucotrol) 2.5 mg PO BIDAC [facility] Last Admin: 12/28/16 06:20 Dose: 2.5 mg Hydrocortisone Sodium Succinate (Solu-Cortef) 100 mg IVPUSH Q6H [facility] Stop: 12/28/16 01:00 Last Admin: 12/27/16 23:49 Dose: 100 mg Furosemide 100 mg/ Sodium (Chloride) 100 mls @ 5 mls/hr IV TITRATE SHREYA PRN Reason: Protocol Last Admin: 12/25/16 20:07 Dose: 5 mls/hr Ceftriaxone Sodium 1 gm/ (Sodium Chloride) 100 mls @ 200 mls/hr IV Q24H [facility]RE[facility] Stop: 12/30/16 09:01 Last Admin: 12/29/16 08:33 Dose: 200 mls/hr Potassium Chloride 10 meq/ (Premix) 100 mls @ 100 mls/hr IV Q1H SHREYA Stop: 12/26/16 04:14 Last Admin: 12/26/16 03:37 Dose: 100 mls/hr Magnesium Sulfate 2 gm/ Premix 50 mls @ 25 mls/hr IV Q2H SHREYA Stop: 12/26/16 04:44 Last Admin: 12/26/16 02:56 Dose: 25 mls/hr Magnesium Sulfate (Magnesium Sulfate 2 Gm In Water 50 Ml) Confirm Administered Dose 50 mls @ as directed .ROUTE .STK-MED ONE Stop: 12/26/16 01:57 Last Admin: 12/26/16 02:55 Dose: 2 gm Dopamine HCl/Dextrose (Dopamine In D5w 400 Mg/250 Ml) 400 mg in 250 mls @ 7.892 mls/hr IV TITRATE SHREYA; 2 MCG/KG/MIN PRN Reason: Protocol Last Titration: 12/26/16 14:32 Dose: 0 mcg/kg/min, 0 mls/hr Sodium Chloride (Normal Saline) 1,000 mls @ 25 mls/hr IV ASDIRECTED SHREYA Stop: 12/31/16 17:00 Last Admin: 12/27/16 09:11 Dose: 25 mls/hr Magnesium Sulfate 2 gm/ Premix 50 mls @ 25 mls/hr IV ONETIME ONE Stop: 12/30/16 10:29 Last Admin: 12/30/16 09:27 Dose: 25 mls/hr Insulin Aspart (Novolog) 0 unit SUBCUT BID SHREYA PRN Reason: Protocol Last Admin: 12/30/16 09:40 Dose: Not Given Magnesium Sulfate (Pharmacy To Dose - Magnesium Replacement) 1 dose .XX ASDIRECTED SHREYA Metformin HCl (Glucophage) 500 mg PO WITHBREAKFAST SHREYA Last Admin: 12/26/16 06:44 Dose: Not Given Metoprolol Tartrate (Lopressor) 5 mg IVPUSH ONETIME ONE Stop: 12/25/16 15:43 Last Admin: 12/25/16 16:04 Dose: 5 mg Morphine Sulfate (Morphine) 1 mg IVPUSH Q4H PRN PRN Reason: Pain Stop: 12/30/16 18:00 Morphine Sulfate (Morphine) 0.5 mg IVPUSH Q4H PRN PRN Reason: Pain Stop: 12/30/16 18:00 Nitrofurantoin Macrocrystals (Macrobid) 100 mg PO ONETIME ONE Stop: 12/25/16 17:18 Last Admin: 12/25/16 17:31 Dose: 100 mg Phenazopyridine HCl (Urinary Pain Relief) 100 mg PO BID [facility] Polyethylene Glycol (Miralax) 17 gm PO DAILY PRN PRN Reason: Constipation Last Admin: 12/27/16 18:10 Dose: 17 gm Potassium Chloride (Pharmacy To Dose - Potassium Replacement) 1 dose .XX ASDIRECTED SHREYA - Exam Quality Assessment: DVT prophylaxis General: alert, oriented, cooperative, no acute distress HEENT: Pupils equal, Pupils reactive, EOMI Neck: supple, trachea midline Lungs: Normal respiratory effort Cardiovascular: Regular Rate, Regular Rhythm Abdomen: bowel sounds present, soft, no tenderness, no distension (Female) Exam: Deferred Back Exam: Normal Inspection Extremities: normal pulses, edema (1+) Skin: warm Neurological: no new focal deficit, normal speech Psy/Mental Status: alert, normal affect, normal mood - Problem List & Annotations (1) Congestive heart failure (CHF) SNOMED Code(s): 56025949 Code(s): I50.9 - HEART FAILURE, UNSPECIFIED Status: Acute Current Visit: Yes Qualifiers: Congestive heart failure type: unspecified congestive heart failure type Congestive heart failure chronicity: acute Qualified Code(s): I50.9 - Heart failure, unspecified (2) UTI, Urinary tract infectious disease SNOMED Code(s): 95505635 Code(s): N39.0 - URINARY TRACT INFECTION, SITE NOT SPECIFIED Status: Acute Current Visit: Yes (3) Hypertension SNOMED Code(s): 17024530 Code(s): I10 - ESSENTIAL (PRIMARY) HYPERTENSION Status: Chronic Priority : Low Current Visit: Yes Onset Date: 10/20/15 Qualifiers: Hypertension type: essential hypertension Qualified Code(s): I10 - Essential (primary) hypertension Annotation/Comment:: - Fairly stable - Continue BP meds - Monitor fluid and salt intake - Problem List Review Problem List Initiated/Reviewed/Updated: Yes - My Orders Last 24 Hours: My Active Orders 12/30/16 15:41 Nystatin [Nystop] 0 gm TOP QID PRN 12/30/16 21:00 cefTRIAXone [Rocephin] 1 gm Sodium Chloride 0.9% [Normal Saline] 100 ml IV Q24H - Plan Plan:: Assessment/Plan: Acute: HF w/ Preserved EF - Recent 2D echo 65% LEVF on 10/20/2015 with regional wall abnormality - She has significant valvular dysfunction - Had a hx/o RF - HF protocol: routine weight check, Is/Os, lasix drip, and salt restriction - Morphine and Supplemental O2 - 2D echo: completed awaiting report - CE x 1 now and in am and D-dimer level: all normal - CXR shows no change from yesterday: still showing pulmonary congestion - New 2D echo: left ventricular ejection fraction 65-70%. Severe dilated left atrium. Moderate aortic valve stenosis. Moderate mitral stenosis. Severe mitral annular calcification. Right ventricular systolic pressure is elevated at 72 mm per mercury. No regional motion abnormalities Morbid Obesity - Dietary consult for weight management - Advised LSM Probable KELLEE - STOB BANG is 4: Intermediate risk - Sleep study outpatient DM2 - BS remains controlled - Will not resume Metformin 500 mg po BID - Discontinue glucotrol 2.5 mg po BID - ADA diet Generalized Weakness - 2/2 current illness - Consider SNF/NH placement - Patient and , agreeable High Fall Risk - She is morbidly Obese - Unsteady gait Resolved: S/p Malignant Hypertension - Possibly 2/2 non-compliance - Came in with BP 174/114 - 168/111 upon admission to the floor S/p Hypotension - Doubt cardiogenic in etiology - Maybe 2/2 multiple BP meds she got including clonidine - Was also on Lasix drip - She is still on dopamine drip to maintain MAP 65 of higher - Check cortisol level - Solu-cortef 100 mg IV Q6 for pressure support S/p UTI - UA not quite impressive but she is symptomatic: dysuria and frequency - Risk Factors: Chronic Urinary Frequency, Urinary Incontinence, Restricted Mobility and Wears Pad - Received Macrobid in ED - UA Cx: Suggestive of contamination - On Rocephin IV 1 gram daily - Discontinue IV Rocephin today Chronic: HLD HTN Constipation GERD Hx/o PUD OA/DJS DM2 Hypothyroidism SUSIE Depression Nocturnal Hypoxia on 2.5 L NC at night Seborrheic Dermatitis Dysphagia Abdominal Pain/Diverticulosis Hx/o PE Hx/o IBS Hx/o Interstitial Cystitis Hx/o Rheumatic Fever (RF) Plan: She remains clinically stable Continue PT/OT SW/CM for d/c planning Additional orders as above Recommend NH placement: weak and unsteady Code status: 1 LOS > 96 hrs for SNF/NH placement
[2016-12-31] MEDS: Polyethylene Glycol 3350 Powder 17 GM Packet PO PRN (16:50)
[2016-12-31] MEDS: cefTRIAXone 1 GM in Sodium Chloride 0.9% 100 ML IV SCH (21:20)
[2016-12-31] MEDS: traZODone 50 MG Tab PO SCH (21:21)
[2016-12-31] MEDS: Simvastatin 20 MG Tab PO SCH (21:21)
[2017-01-01] MEDS: Heparin Sodium 5,000 Units/ML Vial SUBCUT SCH ×3 (02:33→18:07)
[2017-01-01] MEDS: Insulin Aspart 100 Units/ML 3 ML Pen SUBCUT SCH ×2 (06:46→21:52)
[2017-01-01] MEDS: metFORMIN 500 MG Tab PO SCH ×2 (06:47→18:01)
[2017-01-01] MEDS: Levothyroxine 50 MCG Tab PO SCH (06:47)
[2017-01-01] MEDS ORDERED: Furosemide 20 MG/2 ML VIAL IVPUSH ONE (08:00)
[2017-01-01] MEDS: Cholecalciferol (Vitamin D3) 1,000 Unit Tab PO SCH (09:30)
[2017-01-01] MEDS: Multivitamins with Minerals/Folic Acid/Lutein/Zeaxanth Tab PO SCH (09:30)
[2017-01-01] MEDS: Aspirin 81 MG Tab.Chew PO SCH (09:30)
[2017-01-01] MEDS: Gabapentin 600 MG Tab PO SCH ×2 (09:30→21:53)
[2017-01-01] MEDS: Docusate Sodium 100 MG Cap PO SCH ×2 (09:30→21:53)
[2017-01-01] MEDS: amLODIPine 10 MG Tab PO SCH (09:32)
[2017-01-01] MEDS: Metoprolol Succinate 25 MG Tab.ER PO SCH (09:33)
[2017-01-01] MEDS: Saccharomyces Boulardii (Probiotic) 250 MG Cap PO SCH ×2 (10:56→21:53)
[2017-01-01] MEDS ORDERED: Magnesium Sulfate/Water 2 GM in Premix Bag 1 BAG IV ONE (11:30)
[2017-01-01] MEDS: Cephalexin 250 MG Cap PO SCH ×2 (11:41→18:48)
--- NOTE | 2017-01-01 12:02 | PCM.PN ---
- General Info Date of Service: 01/01/17 Functional Status: Reports: tolerating diet, ambulating, urinating - Review of Systems General: Reports: Weakness HEENT: Reports: no symptoms Pulmonary: Reports: shortness of breath Cardiovascular: Reports: No Symptoms Gastrointestinal: Reports: No symptoms Genitourinary: Reports: no symptoms Musculoskeletal: Reports: no symptoms Skin: Reports: no symptoms Neurological: Reports: No Symptoms Psychiatric: Reports: no symptoms - Patient Data Vitals - most recent: Last Vital Signs Temp 36.2 C 01/01/17 08:22 Pulse 69 01/01/17 09:33 Resp 20 01/01/17 08:22 BP 116/56 L 01/01/17 09:33 Pulse Ox 90 L 01/01/17 08:22 Weight - most recent: 97.386 kg I&O - last 24 hours: Intake & Output 12/31/16 01/01/17 01/01/17 22:59 06:59 14:59 Intake Total 220 1150 Output Total 1025 1450 Balance -805 -300 Lab Results last 24 hrs: Laboratory Results - last 24 hr 12/31/16 12/31/16 12/31/16 Range/Units 13:52 13:52 13:52 WBC 6.43 (3.98-10.04) K/mm3 RBC 4.04 (3.98-5.22) M/mm3 Hgb 12.0 (11.2-15.7) gm/L Hct 39.0 (34.1-44.9) % MCV 96.5 H (79.4-94.8) fl MCH 29.7 (25.6-32.2) pg MCHC 30.8 L (32.2-35.5) g/dl RDW Std Deviation 55.4 H (36.4-46.3) fL Plt Count 224 (182-369) K/mm3 MPV 10.1 (9.4-12.3) fl Neutrophils % (Manual) 60 (40-60) % Band Neutrophils % 0 (0-10) % Lymphocytes % (Manual) 31 (20-40) % Atypical Lymphs % 0 % Monocytes % (Manual) 7 (2-10) % Eosinophils % (Manual) 1 (0.7-5.8) % Basophils % (Manual) 1 (0.1-1.2) Platelet Estimate Adequate Plt Morphology Comment Normal RBC Morph Comment Not Reportable Sodium 137 (136-145) mEq/L Potassium 4.5 (3.5-5.1) mEq/L Chloride 97 L (98-107) mEq/L Carbon Dioxide 36 H (21-32) mEq/L Anion Gap 8.5 (5-15) BUN 22 H (7-18) mg/dL Creatinine 1.1 H (0.55-1.02) mg/dL Est Cr Clr Drug Dosing 27.83 mL/min Estimated GFR (MDRD) 47 (>60) mL/min BUN/Creatinine Ratio 20.0 H (14-18) Glucose 157 H (83-115) mg/dL POC Glucose (83-110) mg/dL Calcium 9.6 (8.5-10.1) mg/dL Magnesium 1.6 L (1.8-2.4) mg/dl B-Natriuretic Peptide 152 H (0-100) pg/mL 12/31/16 01/01/17 Range/Units 21:18 06:43 WBC (3.98-10.04) K/mm3 RBC (3.98-5.22) M/mm3 Hgb (11.2-15.7) gm/L Hct (34.1-44.9) % MCV (79.4-94.8) fl MCH (25.6-32.2) pg MCHC (32.2-35.5) g/dl RDW Std Deviation (36.4-46.3) fL Plt Count (182-369) K/mm3 MPV (9.4-12.3) fl Neutrophils % (Manual) (40-60) % Band Neutrophils % (0-10) % Lymphocytes % (Manual) (20-40) % Atypical Lymphs % % Monocytes % (Manual) (2-10) % Eosinophils % (Manual) (0.7-5.8) % Basophils % (Manual) (0.1-1.2) Platelet Estimate Plt Morphology Comment RBC Morph Comment Sodium (136-145) mEq/L Potassium (3.5-5.1) mEq/L Chloride (98-107) mEq/L Carbon Dioxide (21-32) mEq/L Anion Gap (5-15) BUN (7-18) mg/dL Creatinine (0.55-1.02) mg/dL Est Cr Clr Drug Dosing mL/min Estimated GFR (MDRD) (>60) mL/min BUN/Creatinine Ratio (14-18) Glucose (83-115) mg/dL POC Glucose 133 H 121 H (83-110) mg/dL Calcium (8.5-10.1) mg/dL Magnesium (1.8-2.4) mg/dl B-Natriuretic Peptide (0-100) pg/mL [place] Results last 24 hrs: Microbiology 12/26/16 02:35 Aerobic Blood Culture - Preliminary Blood - Venous - Lab Draw NO GROWTH AFTER 6 DAYS Anaerobic Blood Culture - Preliminary NO GROWTH AFTER 6 DAYS 12/26/16 02:15 Aerobic Blood Culture - Preliminary Blood - Venous NO GROWTH AFTER 6 DAYS Anaerobic Blood Culture - Preliminary NO GROWTH AFTER 6 DAYS Med Orders - Current: Current Medications Acetaminophen (Tylenol) 650 mg PO Q4H PRN PRN Reason: Pain (Mild 1-3)/fever Last Admin: 12/25/16 21:27 Dose: 650 mg Hydrocodone Bitart/Acetaminophen ([place] 325-5 Mg) 1 tab PO Q4H PRN PRN Reason: Pain (moderate 4-6) Albuterol/Ipratropium (Duoneb 3.0-0.5 Mg/3 Ml) 3 ml NEB QIDRT [facility] Amlodipine Besylate (Norvasc) 10 mg PO DAILY [facility] Last Admin: 01/01/17 09:32 Dose: 10 mg Aspirin (Aspirin) 81 mg PO DAILY [facility] Last Admin: 01/01/17 09:30 Dose: 81 mg Bisacodyl (Dulcolax) 5 mg PO DAILY PRN PRN Reason: Constipation Cephalexin (Keflex) 250 mg PO Q8H [facility] Last Admin: 01/01/17 11:41 Dose: 250 mg Cholecalciferol (Vitamin D3) 1,000 units PO DAILY [facility] Last Admin: 01/01/17 09:30 Dose: 1,000 units Dextrose/Water (Dextrose 50% In Water) 50 ml IVPUSH ASDIRECTED PRN PRN Reason: Hypoglycemia Docusate Sodium (Colace) 100 mg PO BID PRN PRN Reason: Constipation Docusate Sodium (Colace) 200 mg PO BID [facility] Last Admin: 01/01/17 09:30 Dose: 200 mg Furosemide (Lasix) 40 mg PO DAILY [facility] Last Admin: 12/31/16 08:41 Dose: 40 mg Gabapentin (Neurontin) 600 mg PO BID [facility] Last Admin: 01/01/17 09:30 Dose: 600 mg Heparin Sodium (Porcine) (Heparin Sodium) 5,000 units SUBCUT Q8H [facility] Last Admin: 01/01/17 09:31 Dose: 5,000 units Hydralazine HCl (Apresoline) 10 mg IVPUSH Q4H PRN PRN Reason: Hypertension Last Admin: 12/25/16 19:29 Dose: 10 mg Promethazine HCl 12.5 mg/ (Sodium Chloride) 50.5 mls @ 100 mls/hr IV Q6H PRN PRN Reason: Nausea/Vomiting Magnesium Sulfate 2 gm/ Premix 50 mls @ 25 mls/hr IV ONETIME ONE Stop: 01/01/17 13:29 Last Admin: 01/01/17 11:40 Dose: 25 mls/hr Insulin Aspart (Novolog) 0 unit SUBCUT BID@0700,2100 [facility] PRN Reason: Protocol Last Admin: 01/01/17 06:46 Dose: Not Given Levothyroxine Sodium (Synthroid) 50 mcg PO ACBRK [facility] Last Admin: 01/01/17 06:47 Dose: 50 mcg Lorazepam (Ativan) 0.5 mg IV Q6H PRN PRN Reason: Anxiety Losartan Potassium (Cozaar) 150 mg PO DAILY [facility] Last Admin: 12/31/16 08:42 Dose: 150 mg Metformin HCl (Glucophage) 500 mg PO BIDMEALS [facility] Last Admin: 01/01/17 06:47 Dose: 500 mg Metoprolol Succinate (Toprol Xl) 25 mg PO DAILY [facility] Last Admin: 01/01/17 09:33 Dose: 25 mg Metoprolol Tartrate (Lopressor) 5 mg IVPUSH Q4H PRN PRN Reason: Tachycardia Nystatin (Nystop) 0 gm TOP QID PRN PRN Reason: Rash Last Admin: 12/31/16 19:44 Dose: 1 unit Ondansetron HCl (Zofran) 4 mg IV Q6H PRN PRN Reason: Nausea/Vomiting Polyethylene Glycol (Miralax) 17 gm PO BID PRN PRN Reason: Constipation Last Admin: 12/31/16 16:50 Dose: 17 gm Saccharomyces Boulardii (Florastor) 250 mg PO BID [facility] Last Admin: 01/01/17 10:56 Dose: 250 mg Senna/Docusate Sodium (Senna Plus) 1 tab PO BID PRN PRN Reason: Constipation Simvastatin (Zocor) 20 mg PO BEDTIME [facility] Last Admin: 12/31/16 21:21 Dose: 20 mg Sodium Chloride (Saline Flush) 10 ml FLUSH ASDIRECTED PRN PRN Reason: Keep Vein Open Last Admin: 12/25/16 16:04 Dose: 10 ml Tramadol HCl (Ultram) 50 mg PO Q6H PRN PRN Reason: Pain Trazodone HCl (Trazodone) 200 mg PO BEDTIME [facility] Last Admin: 12/31/16 21:21 Dose: 200 mg Vit A/Vit C/Vit E/Selen/Cu/Zn/Lutei (Icaps Mv) 1 tab PO DAILY [facility] Last Admin: 01/01/17 09:30 Dose: 1 tab Discontinued Medications Albuterol/Ipratropium (Duoneb 3.0-0.5 Mg/3 Ml) 3 ml NEB Q4H PRN PRN Reason: Shortness Of Breath/wheezing Last Admin: 12/30/16 11:27 Dose: 3 ml Clonidine HCl (Catapres) 0.2 mg PO ONETIME ONE Stop: 12/25/16 21:17 Last Admin: 12/25/16 21:27 Dose: 0.2 mg Enoxaparin Sodium (Lovenox) 30 mg SUBCUT DAILY [facility] Last Admin: 12/26/16 10:11 Dose: Not Given Furosemide (Lasix) 40 mg IVPUSH NOW ONE Stop: 12/25/16 16:37 Last Admin: 12/25/16 16:54 Dose: 40 mg Furosemide (Lasix) 20 mg IVPUSH NOW ONE Stop: 01/01/17 08:01 Last Admin: 01/01/17 09:34 Dose: 20 mg Glipizide (Glucotrol) 2.5 mg PO BIDAC [facility] Last Admin: 12/28/16 06:20 Dose: 2.5 mg Hydrocortisone Sodium Succinate (Solu-Cortef) 100 mg IVPUSH Q6H [facility] Stop: 12/28/16 01:00 Last Admin: 12/27/16 23:49 Dose: 100 mg Furosemide 100 mg/ Sodium (Chloride) 100 mls @ 5 mls/hr IV TITRATE [facility] PRN Reason: Protocol Last Admin: 12/25/16 20:07 Dose: 5 mls/hr Ceftriaxone Sodium 1 gm/ (Sodium Chloride) 100 mls @ 200 mls/hr IV Q24H [facility] Stop: 12/30/16 09:01 Last Admin: 12/29/16 08:33 Dose: 200 mls/hr Potassium Chloride 10 meq/ (Premix) 100 mls @ 100 mls/hr IV Q1H [facility] Stop: 12/26/16 04:14 Last Admin: 12/26/16 03:37 Dose: 100 mls/hr Magnesium Sulfate 2 gm/ Premix 50 mls @ 25 mls/hr IV Q2H [facility] Stop: 12/26/16 04:44 Last Admin: 12/26/16 02:56 Dose: 25 mls/hr Magnesium Sulfate (Magnesium Sulfate 2 Gm In Water 50 Ml) Confirm Administered Dose 50 mls @ as directed .ROUTE .STK-MED ONE Stop: 12/26/16 01:57 Last Admin: 12/26/16 02:55 Dose: 2 gm Dopamine HCl/Dextrose (Dopamine In D5w 400 Mg/250 Ml) 400 mg in 250 mls @ 7.892 mls/hr IV TITRATE SHREYA; 2 MCG/KG/MIN PRN Reason: Protocol Last Titration: 12/26/16 14:32 Dose: 0 mcg/kg/min, 0 mls/hr Sodium Chloride (Normal Saline) 1,000 mls @ 25 mls/hr IV ASDIRECTED [facility] Stop: 12/31/16 17:00 Last Admin: 12/27/16 09:11 Dose: 25 mls/hr Magnesium Sulfate 2 gm/ Premix 50 mls @ 25 mls/hr IV ONETIME ONE Stop: 12/30/16 10:29 Last Admin: 12/30/16 09:27 Dose: 25 mls/hr Ceftriaxone Sodium 1 gm/ (Sodium Chloride) 100 mls @ 200 mls/hr IV Q24H [facility] Last Admin: 12/31/16 21:20 Dose: 200 mls/hr Insulin Aspart (Novolog) 0 unit SUBCUT BID [facility] PRN Reason: Protocol Last Admin: 12/30/16 09:40 Dose: Not Given Magnesium Sulfate (Pharmacy To Dose - Magnesium Replacement) 1 dose .XX ASDIRECTED [facility] Metformin HCl (Glucophage) 500 mg PO WITHBREAKFAST [facility] Last Admin: 12/26/16 06:44 Dose: Not Given Metoprolol Tartrate (Lopressor) 5 mg IVPUSH ONETIME ONE Stop: 12/25/16 15:43 Last Admin: 12/25/16 16:04 Dose: 5 mg Morphine Sulfate (Morphine) 1 mg IVPUSH Q4H PRN PRN Reason: Pain Stop: 12/30/16 18:00 Morphine Sulfate (Morphine) 0.5 mg IVPUSH Q4H PRN PRN Reason: Pain Stop: 12/30/16 18:00 Nitrofurantoin Macrocrystals (Macrobid) 100 mg PO ONETIME ONE Stop: 12/25/16 17:18 Last Admin: 12/25/16 17:31 Dose: 100 mg Phenazopyridine HCl (Urinary Pain Relief) 100 mg PO BID [facility] Polyethylene Glycol (Miralax) 17 gm PO DAILY PRN PRN Reason: Constipation Last Admin: 12/27/16 18:10 Dose: 17 gm Potassium Chloride (Pharmacy To Dose - Potassium Replacement) 1 dose .XX ASDIRECTED [facility] - Exam Quality Assessment: supplemental oxygen, DVT prophylaxis General: alert, oriented, cooperative HEENT: Pupils equal, Pupils reactive, EOMI Neck: supple, trachea midline, no JVD Lungs: Clear to auscultation, Normal respiratory effort Cardiovascular: Regular Rate, Regular Rhythm Abdomen: bowel sounds present, soft, no tenderness, no distension (Female) Exam: Deferred Back Exam: Normal Inspection Extremities: edema (trace) Skin: warm Neurological: no new focal deficit Psy/Mental Status: alert, normal affect, normal mood - Problem List & Annotations (1) Congestive heart failure (CHF) SNOMED Code(s): 83342577 Code(s): I50.9 - HEART FAILURE, UNSPECIFIED Status: Acute Current Visit: Yes Qualifiers: Congestive heart failure type: unspecified congestive heart failure type Congestive heart failure chronicity: acute Qualified Code(s): I50.9 - Heart failure, unspecified (2) UTI, Urinary tract infectious disease SNOMED Code(s): 57928287 Code(s): N39.0 - URINARY TRACT INFECTION, SITE NOT SPECIFIED Status: Acute Current Visit: Yes (3) Hypertension SNOMED Code(s): 64865823 Code(s): I10 - ESSENTIAL (PRIMARY) HYPERTENSION Status: Chronic Priority : Low Current Visit: Yes Onset Date: 10/20/15 Qualifiers: Hypertension type: essential hypertension Qualified Code(s): I10 - Essential (primary) hypertension Annotation/Comment:: - Fairly stable - Continue BP meds - Monitor fluid and salt intake - Problem List Review Problem List Initiated/Reviewed/Updated: Yes - My Orders Last 24 Hours: My Active Orders 01/01/17 10:30 Saccharomyces Boulardii [Florastor] 250 mg PO BID 01/01/17 11:30 Magnesium Sulfate/Water [Magnesium Sulfate 2 GM in Water 50 ML] 2 gm Premix Bag 1 bag IV ONETIME 01/01/17 11:45 Cephalexin [Keflex] 250 mg PO Q8H - Plan Plan:: Assessment/Plan: Acute: HF w/ Preserved EF - Recent 2D echo 65% LEVF on 10/20/2015 with regional wall abnormality - She has significant valvular dysfunction - Had a hx/o RF - HF protocol: routine weight check, Is/Os, lasix drip, and salt restriction - Morphine and Supplemental O2 - 2D echo: completed awaiting report - CE x 1 now and in am and D-dimer level: all normal - Repeat CXR and BNP - New 2D echo: left ventricular ejection fraction 65-70%. Severe dilated left atrium. Moderate aortic valve stenosis. Moderate mitral stenosis. Severe mitral annular calcification. Right ventricular systolic pressure is elevated at 72 mm per mercury. No regional motion abnormalities Morbid Obesity - Dietary consult for weight management - Advised LSM Probable KELLEE - STOB BANG is 4: Intermediate risk - Sleep study outpatient DM2 - BS remains controlled - Will not resume Metformin 500 mg po BID - Discontinue glucotrol 2.5 mg po BID - ADA diet Generalized Weakness - 2/2 current illness - Consider SNF/NH placement - Patient and , agreeable High Fall Risk - She is morbidly Obese - Unsteady gait Resolved: S/p Malignant Hypertension - Possibly 2/2 non-compliance - Came in with BP 174/114 - 168/111 upon admission to the floor S/p Hypotension - Doubt cardiogenic in etiology - Maybe 2/2 multiple BP meds she got including clonidine - Was also on Lasix drip - She is still on dopamine drip to maintain MAP 65 of higher - Check cortisol level - Solu-cortef 100 mg IV Q6 for pressure support S/p UTI - UA not quite impressive but she is symptomatic: dysuria and frequency - Risk Factors: Chronic Urinary Frequency, Urinary Incontinence, Restricted Mobility and Wears Pad - Received Macrobid in ED - UA Cx: Suggestive of contamination - On Rocephin IV 1 gram daily - Discontinue IV Rocephin today Chronic: HLD HTN Constipation GERD Hx/o PUD OA/DJS DM2 Hypothyroidism SUSIE Depression Nocturnal Hypoxia on 2.5 L NC at night Seborrheic Dermatitis Dysphagia Abdominal Pain/Diverticulosis Hx/o PE Hx/o IBS Hx/o Interstitial Cystitis Hx/o Rheumatic Fever (RF) Plan: She remains clinically stable Continue PT/OT SW/CM for d/c planning Additional orders as above Recommend NH placement: weak and unsteady Code status: 1 LOS > 96 hrs for SNF/NH placement
[2017-01-01] MEDS: Losartan 100 MG Tab PO SCH (12:39)
[2017-01-01] MEDS: Albuterol/Ipratropium 3.0-0.5 MG/3 ML Neb Soln NEB SCH ×2 (18:51→21:45)
[2017-01-01] MEDS: traZODone 50 MG Tab PO SCH (21:53)
[2017-01-01] MEDS: Simvastatin 20 MG Tab PO SCH (21:53)
[2017-01-02] MEDS: Cephalexin 250 MG Cap PO SCH ×3 (02:57→18:46)
[2017-01-02] MEDS: Heparin Sodium 5,000 Units/ML Vial SUBCUT SCH ×3 (02:57→17:10)
[2017-01-02] MEDS: Albuterol/Ipratropium 3.0-0.5 MG/3 ML Neb Soln NEB SCH ×4 (06:47→20:40)
[2017-01-02] MEDS: metFORMIN 500 MG Tab PO SCH ×2 (06:49→17:09)
[2017-01-02] MEDS: Levothyroxine 50 MCG Tab PO SCH (06:49)
[2017-01-02] MEDS: Insulin Aspart 100 Units/ML 3 ML Pen SUBCUT SCH ×2 (06:50→20:13)
[2017-01-02] MEDS: Multivitamins with Minerals/Folic Acid/Lutein/Zeaxanth Tab PO SCH (08:14)
[2017-01-02] MEDS: Gabapentin 600 MG Tab PO SCH ×2 (08:14→20:12)
[2017-01-02] MEDS: Cholecalciferol (Vitamin D3) 1,000 Unit Tab PO SCH (08:15)
[2017-01-02] MEDS: Docusate Sodium 100 MG Cap PO SCH ×2 (08:15→20:14)
[2017-01-02] MEDS: amLODIPine 10 MG Tab PO SCH (08:16)
[2017-01-02] MEDS: Aspirin 81 MG Tab.Chew PO SCH (08:16)
[2017-01-02] MEDS: Metoprolol Succinate 25 MG Tab.ER PO SCH (08:17)
[2017-01-02] MEDS: Saccharomyces Boulardii (Probiotic) 250 MG Cap PO SCH ×2 (08:18→20:12)
[2017-01-02] MEDS ORDERED: Furosemide 20 MG/2 ML VIAL IVPUSH ONE (08:20)
[2017-01-02] MEDS ORDERED: Bisacodyl 10 MG Supp RECTAL ONE (08:22)
[2017-01-02] MEDS: Furosemide 40 MG Tab PO SCH (08:56)
--- NOTE | 2017-01-02 11:07 | PCM.PN ---
- General Info Date of Service: 01/02/17 Functional Status: Reports: tolerating diet, ambulating, urinating (burning, query atrophi vaginitis) - Review of Systems General: Reports: No Symptoms HEENT: Reports: no symptoms Pulmonary: Reports: no symptoms Cardiovascular: Reports: No Symptoms Gastrointestinal: Reports: No symptoms Genitourinary: Reports: no symptoms Musculoskeletal: Reports: no symptoms Skin: Reports: no symptoms Neurological: Reports: No Symptoms - Patient Data Vitals - most recent: Last Vital Signs Temp 36.6 C 01/02/17 08:19 Pulse 66 01/02/17 08:19 Resp 16 01/02/17 08:19 BP 118/82 01/02/17 08:17 Pulse Ox 94 L 01/02/17 10:46 Weight - most recent: 97.205 kg I&O - last 24 hours: Intake & Output 01/01/17 01/02/17 01/02/17 22:59 06:59 14:59 Intake Total 1120 350 180 Output Total 800 600 Balance 320 -250 180 Lab Results last 24 hrs: Laboratory Results - last 24 hr 01/01/17 01/02/17 01/02/17 Range/Units 21:51 06:40 06:40 WBC 6.49 (3.98-10.04) K/mm3 RBC 3.93 L (3.98-5.22) M/mm3 Hgb 11.5 (11.2-15.7) gm/L Hct 37.2 (34.1-44.9) % MCV 94.7 (79.4-94.8) fl MCH 29.3 (25.6-32.2) pg MCHC 30.9 L (32.2-35.5) g/dl RDW Std Deviation 53.4 H (36.4-46.3) fL Plt Count 209 (182-369) K/mm3 MPV 10.4 (9.4-12.3) fl POC Glucose 157 H (83-110) mg/dL Magnesium 1.9 (1.8-2.4) mg/dl 01/02/17 Range/Units 06:43 WBC (3.98-10.04) K/mm3 RBC (3.98-5.22) M/mm3 Hgb (11.2-15.7) gm/L Hct (34.1-44.9) % MCV (79.4-94.8) fl MCH (25.6-32.2) pg MCHC (32.2-35.5) g/dl RDW Std Deviation (36.4-46.3) fL Plt Count (182-369) K/mm3 MPV (9.4-12.3) fl POC Glucose 118 H (83-110) mg/dL Magnesium (1.8-2.4) mg/dl [place] Results last 24 hrs: Microbiology 12/26/16 02:35 Aerobic Blood Culture - Final Blood - Venous - Lab Draw NO GROWTH AFTER 7 DAYS Anaerobic Blood Culture - Final NO GROWTH AFTER 7 DAYS 12/26/16 02:15 Aerobic Blood Culture - Final Blood - Venous NO GROWTH AFTER 7 DAYS Anaerobic Blood Culture - Final NO GROWTH AFTER 7 DAYS Med Orders - Current: Current Medications Acetaminophen (Tylenol) 650 mg PO Q4H PRN PRN Reason: Pain (Mild 1-3)/fever Last Admin: 12/25/16 21:27 Dose: 650 mg Hydrocodone Bitart/Acetaminophen ([place] 325-5 Mg) 1 tab PO Q4H PRN PRN Reason: Pain (moderate 4-6) Albuterol/Ipratropium (Duoneb 3.0-0.5 Mg/3 Ml) 3 ml NEB QIDRT [facility] Last Admin: 01/02/17 10:46 Dose: 3 ml Amlodipine Besylate (Norvasc) 10 mg PO DAILY [facility] Last Admin: 01/02/17 08:16 Dose: 10 mg Aspirin (Aspirin) 81 mg PO DAILY [facility] Last Admin: 01/02/17 08:16 Dose: 81 mg Bisacodyl (Dulcolax) 5 mg PO DAILY PRN PRN Reason: Constipation Last Admin: 01/01/17 18:48 Dose: 5 mg Cephalexin (Keflex) 250 mg PO Q8H [facility] Last Admin: 01/02/17 02:57 Dose: 250 mg Cholecalciferol (Vitamin D3) 1,000 units PO DAILY [facility] Last Admin: 01/02/17 08:15 Dose: 1,000 units Dextrose/Water (Dextrose 50% In Water) 50 ml IVPUSH ASDIRECTED PRN PRN Reason: Hypoglycemia Docusate Sodium (Colace) 100 mg PO BID PRN PRN Reason: Constipation Docusate Sodium (Colace) 200 mg PO BID [facility] Last Admin: 01/02/17 08:15 Dose: 200 mg Furosemide (Lasix) 40 mg PO DAILY [facility] Last Admin: 01/02/17 08:56 Dose: Not Given Gabapentin (Neurontin) 600 mg PO BID [facility] Last Admin: 01/02/17 08:14 Dose: 600 mg Heparin Sodium (Porcine) (Heparin Sodium) 5,000 units SUBCUT Q8H [facility] Last Admin: 01/02/17 09:14 Dose: 5,000 units Hydralazine HCl (Apresoline) 10 mg IVPUSH Q4H PRN PRN Reason: Hypertension Last Admin: 12/25/16 19:29 Dose: 10 mg Promethazine HCl 12.5 mg/ (Sodium Chloride) 50.5 mls @ 100 mls/hr IV Q6H PRN PRN Reason: Nausea/Vomiting Insulin Aspart (Novolog) 0 unit SUBCUT BID@0700,2100 [facility] PRN Reason: Protocol Last Admin: 01/02/17 06:50 Dose: Not Given Levothyroxine Sodium (Synthroid) 50 mcg PO ACBRK [facility] Last Admin: 01/02/17 06:49 Dose: 50 mcg Lorazepam (Ativan) 0.5 mg IV Q6H PRN PRN Reason: Anxiety Losartan Potassium (Cozaar) 150 mg PO DAILY [facility] Last Admin: 01/01/17 12:39 Dose: Not Given Metformin HCl (Glucophage) 500 mg PO BIDMEALS [facility] Last Admin: 01/02/17 06:49 Dose: 500 mg Metoprolol Succinate (Toprol Xl) 25 mg PO DAILY [facility] Last Admin: 01/02/17 08:17 Dose: 25 mg Metoprolol Tartrate (Lopressor) 5 mg IVPUSH Q4H PRN PRN Reason: Tachycardia Nystatin (Nystop) 0 gm TOP QID PRN PRN Reason: Rash Last Admin: 12/31/16 19:44 Dose: 1 unit Ondansetron HCl (Zofran) 4 mg IV Q6H PRN PRN Reason: Nausea/Vomiting Polyethylene Glycol (Miralax) 17 gm PO BID PRN PRN Reason: Constipation Last Admin: 12/31/16 16:50 Dose: 17 gm Saccharomyces Boulardii (Florastor) 250 mg PO BID [facility] Last Admin: 01/02/17 08:18 Dose: 250 mg Senna/Docusate Sodium (Senna Plus) 1 tab PO BID PRN PRN Reason: Constipation Simvastatin (Zocor) 20 mg PO BEDTIME [facility] Last Admin: 01/01/17 21:53 Dose: 20 mg Sodium Chloride (Saline Flush) 10 ml FLUSH ASDIRECTED PRN PRN Reason: Keep Vein Open Last Admin: 12/25/16 16:04 Dose: 10 ml Tramadol HCl (Ultram) 50 mg PO Q6H PRN PRN Reason: Pain Trazodone HCl (Trazodone) 200 mg PO BEDTIME [facility] Last Admin: 01/01/17 21:53 Dose: 200 mg Vit A/Vit C/Vit E/Selen/Cu/Zn/Lutei (Icaps Mv) 1 tab PO DAILY [facility] Last Admin: 01/02/17 08:14 Dose: 1 tab Discontinued Medications Albuterol/Ipratropium (Duoneb 3.0-0.5 Mg/3 Ml) 3 ml NEB Q4H PRN PRN Reason: Shortness Of Breath/wheezing Last Admin: 12/30/16 11:27 Dose: 3 ml Bisacodyl (Dulcolax) 10 mg RECTAL ONETIME ONE Stop: 01/02/17 08:23 Last Admin: 01/02/17 08:37 Dose: 10 mg Clonidine HCl (Catapres) 0.2 mg PO ONETIME ONE Stop: 12/25/16 21:17 Last Admin: 12/25/16 21:27 Dose: 0.2 mg Enoxaparin Sodium (Lovenox) 30 mg SUBCUT DAILY [facility] Last Admin: 12/26/16 10:11 Dose: Not Given Furosemide (Lasix) 40 mg IVPUSH NOW ONE Stop: 12/25/16 16:37 Last Admin: 12/25/16 16:54 Dose: 40 mg Furosemide (Lasix) 20 mg IVPUSH NOW ONE Stop: 01/01/17 08:01 Last Admin: 01/01/17 09:34 Dose: 20 mg Furosemide (Lasix) 20 mg IVPUSH NOW ONE Stop: 01/02/17 08:21 Last Admin: 01/02/17 08:37 Dose: 20 mg [facility] Last Admin: 12/28/16 06:20 Dose: 2.5 mg Hydrocortisone Sodium Succinate (Solu-Cortef) 100 mg IVPUSH Q6H [facility] Stop: 12/28/16 01:00 Last Admin: 12/27/16 23:49 Dose: 100 mg Furosemide 100 mg/ Sodium (Chloride) 100 mls @ 5 mls/hr IV TITRATE [facility]REYA PRN Reason: Protocol Last Admin: 12/25/16 20:07 Dose: 5 mls/hr Ceftriaxone Sodium 1 gm/ (Sodium Chloride) 100 mls @ 200 mls/hr IV Q24H [facility] Stop: 12/30/16 09:01 Last Admin: 12/29/16 08:33 Dose: 200 mls/hr Potassium Chloride 10 meq/ (Premix) 100 mls @ 100 mls/hr IV Q1H [facility] Stop: 12/26/16 04:14 Last Admin: 12/26/16 03:37 Dose: 100 mls/hr Magnesium Sulfate 2 gm/ Premix 50 mls @ 25 mls/hr IV Q2H [facility] Stop: 12/26/16 04:44 Last Admin: 12/26/16 02:56 Dose: 25 mls/hr Magnesium Sulfate (Magnesium Sulfate 2 Gm In Water 50 Ml) Confirm Administered Dose 50 mls @ as directed .ROUTE .STK-MED ONE Stop: 12/26/16 01:57 Last Admin: 12/26/16 02:55 Dose: 2 gm Dopamine HCl/Dextrose (Dopamine In D5w 400 Mg/250 Ml) 400 mg in 250 mls @ 7.892 mls/hr IV TITRATE SHREYA; 2 MCG/KG/MIN PRN Reason: Protocol Last Titration: 12/26/16 14:32 Dose: 0 mcg/kg/min, 0 mls/hr Sodium Chloride (Normal Saline) 1,000 mls @ 25 mls/hr IV ASDIRECTED [facility]REYA Stop: 12/31/16 17:00 Last Admin: 12/27/16 09:11 Dose: 25 mls/hr Magnesium Sulfate 2 gm/ Premix 50 mls @ 25 mls/hr IV ONETIME ONE Stop: 12/30/16 10:29 Last Admin: 12/30/16 09:27 Dose: 25 mls/hr Ceftriaxone Sodium 1 gm/ (Sodium Chloride) 100 mls @ 200 mls/hr IV Q24H [facility] Last Admin: 12/31/16 21:20 Dose: 200 mls/hr Magnesium Sulfate 2 gm/ Premix 50 mls @ 25 mls/hr IV ONETIME ONE Stop: 01/01/17 13:29 Last Admin: 01/01/17 11:40 Dose: 25 mls/hr Insulin Aspart (Novolog) 0 unit SUBCUT BID [facility] PRN Reason: Protocol Last Admin: 12/30/16 09:40 Dose: Not Given Magnesium Sulfate (Pharmacy To Dose - Magnesium Replacement) 1 dose .XX ASDIRECTED [facility] Metformin HCl (Glucophage) 500 mg PO WITHBREAKFAST [facility] Last Admin: 12/26/16 06:44 Dose: Not Given Metoprolol Tartrate (Lopressor) 5 mg IVPUSH ONETIME ONE Stop: 12/25/16 15:43 Last Admin: 12/25/16 16:04 Dose: 5 mg Morphine Sulfate (Morphine) 1 mg IVPUSH Q4H PRN PRN Reason: Pain Stop: 12/30/16 18:00 Morphine Sulfate (Morphine) 0.5 mg IVPUSH Q4H PRN PRN Reason: Pain Stop: 12/30/16 18:00 Nitrofurantoin Macrocrystals (Macrobid) 100 mg PO ONETIME ONE Stop: 12/25/16 17:18 Last Admin: 12/25/16 17:31 Dose: 100 mg Phenazopyridine HCl (Urinary Pain Relief) 100 mg PO BID [facility] Polyethylene Glycol (Miralax) 17 gm PO DAILY PRN PRN Reason: Constipation Last Admin: 12/27/16 18:10 Dose: 17 gm Potassium Chloride (Pharmacy To Dose - Potassium Replacement) 1 dose .XX ASDIRECTED [facility] - Exam Quality Assessment: supplemental oxygen, DVT prophylaxis General: alert, oriented, cooperative, no acute distress HEENT: Pupils equal, Pupils reactive, EOMI Neck: supple, trachea midline, no JVD Lungs: Clear to auscultation, Normal respiratory effort Cardiovascular: Regular Rate Abdomen: bowel sounds present, soft, no tenderness, no distension (Female) Exam: Deferred Back Exam: Normal Inspection Extremities: normal pulses, edema (trace) Skin: warm Neurological: no new focal deficit, normal speech Psy/Mental Status: alert, normal affect, normal mood - Problem List & Annotations (1) Congestive heart failure (CHF) SNOMED Code(s): 59671715 Code(s): I50.9 - HEART FAILURE, UNSPECIFIED Status: Acute Current Visit: Yes Qualifiers: Congestive heart failure type: unspecified congestive heart failure type Congestive heart failure chronicity: acute Qualified Code(s): I50.9 - Heart failure, unspecified (2) UTI, Urinary tract infectious disease SNOMED Code(s): 34374261 Code(s): N39.0 - URINARY TRACT INFECTION, SITE NOT SPECIFIED Status: Acute Current Visit: Yes (3) Hypertension SNOMED Code(s): 47424107 Code(s): I10 - ESSENTIAL (PRIMARY) HYPERTENSION Status: Chronic Priority : Low Current Visit: Yes Onset Date: 10/20/15 Qualifiers: Hypertension type: essential hypertension Qualified Code(s): I10 - Essential (primary) hypertension Annotation/Comment:: - Fairly stable - Continue BP meds - Monitor fluid and salt intake - Problem List Review Problem List Initiated/Reviewed/Updated: Yes - My Orders Last 24 Hours: My Active Orders 01/01/17 10:30 Saccharomyces Boulardii [Florastor] 250 mg PO BID 01/01/17 11:45 Cephalexin [Keflex] 250 mg PO Q8H 01/02/17 09:30 CXR [Chest 2V] [CR] Routine 01/02/17 09:31 Communication Order [RC] ASDIRECTED - Plan Plan:: Assessment/Plan: Acute: HF w/ Preserved EF - Recent 2D echo 65% LEVF on 10/20/2015 with regional wall abnormality - She has significant valvular dysfunction - Had a hx/o RF - HF protocol: routine weight check, Is/Os, lasix drip, and salt restriction - Morphine and Supplemental O2 - 2D echo: completed awaiting report - CE x 1 now and in am and D-dimer level: all normal - Repeat CXR and BNP - New 2D echo: left ventricular ejection fraction 65-70%. Severe dilated left atrium. Moderate aortic valve stenosis. Moderate mitral stenosis. Severe mitral annular calcification. Right ventricular systolic pressure is elevated at 72 mm per mercury. No regional motion abnormalities Morbid Obesity - Dietary consult for weight management - Advised LSM Probable KELLEE - STOB BANG is 4: Intermediate risk - Sleep study outpatient DM2 - BS remains controlled - Will not resume Metformin 500 mg po BID - Discontinue glucotrol 2.5 mg po BID - ADA diet Generalized Weakness - 2/2 current illness - Consider SNF/NH placement - Patient and , agreeable High Fall Risk - She is morbidly Obese - Unsteady gait Resolved: S/p Malignant Hypertension - Possibly 2/2 non-compliance - Came in with BP 174/114 - 168/111 upon admission to the floor S/p Hypotension - Doubt cardiogenic in etiology - Maybe 2/2 multiple BP meds she got including clonidine - Was also on Lasix drip - She is still on dopamine drip to maintain MAP 65 of higher - Check cortisol level - Solu-cortef 100 mg IV Q6 for pressure support S/p UTI - UA not quite impressive but she is symptomatic: dysuria and frequency - Risk Factors: Chronic Urinary Frequency, Urinary Incontinence, Restricted Mobility and Wears Pad - Received Macrobid in ED - UA Cx: Suggestive of contamination - On Rocephin IV 1 gram daily - Discontinue IV Rocephin today Chronic: HLD HTN Constipation GERD Hx/o PUD OA/DJS DM2 Hypothyroidism SUSIE Depression Nocturnal Hypoxia on 2.5 L NC at night Seborrheic Dermatitis Dysphagia Abdominal Pain/Diverticulosis Hx/o PE Hx/o IBS Hx/o Interstitial Cystitis Hx/o Rheumatic Fever (RF) Plan: She remains clinically stable Continue PT/OT SW/CM for d/c planning Additional orders as above Recommend NH placement: weak and unsteady Code status: 1 Needs Cardiology appt for elevated right sided pressure LOS > 96 hrs for SNF/NH placement DC 01/02/17
[2017-01-02] MEDS: Polyethylene Glycol 3350 Powder 17 GM Packet PO PRN (11:22)
--- NOTE | 2017-01-02 11:47 | CR ---
Chest: Two views of the chest were obtained. Comparison: Previous chest x-ray of 12/27/16. Decreased atelectasis within the left mid lung. Pulmonary vascular congestion appears diminished. Heart size is slightly improved. Tortuous thoracic aorta remains. Degenerative change is seen within the spine and within both shoulders. Surgical clips are seen within the upper abdomen. Impression: 1. Chest is slightly improved from prior study of 12/27/16. Diagnostic code #3
[2017-01-02] MEDS: Simvastatin 20 MG Tab PO SCH (20:12)
[2017-01-02] MEDS: traZODone 50 MG Tab PO SCH (20:12)
[2017-01-03] MEDS: Cephalexin 250 MG Cap PO SCH (03:01)
[2017-01-03] MEDS: Heparin Sodium 5,000 Units/ML Vial SUBCUT SCH ×3 (03:01→09:28)
[2017-01-03] MEDS: metFORMIN 500 MG Tab PO SCH (06:08)
[2017-01-03] MEDS: Levothyroxine 50 MCG Tab PO SCH (06:08)
[2017-01-03] MEDS: Insulin Aspart 100 Units/ML 3 ML Pen SUBCUT SCH (06:09)
[2017-01-03] MEDS: Albuterol/Ipratropium 3.0-0.5 MG/3 ML Neb Soln NEB SCH ×2 (06:26→09:53)
--- NOTE | 2017-01-03 07:17 | PCM.DCSUM1 ---
<Massiel Manjarrez - Last Filed: 01/03/17 10:48> Discharge Summary - Hospital Course Free Text/Narrative:: This is an 81-year-old morbidly obese elderly white female with past medical history of hypertension, hyperlipidemia, iron deficiency anemia, chronic abdominal pain, depression, diabetes type 2, osteoarthritis/DJD, constipation, seborrheic keratoses, dysphagia, history of pulmonary embolism, history of rheumatic fever and history of irritable bowel syndrome who comes in with complains urinary symptoms (frequency and burning) that have been going on for a few days now. She also has not been feeling well. Patient carries a history of urinary incontinence. She is not very mobile due to her body habitus and she wears pad for urinary frequency. Patient reports weight gain, Orthopnea, PND, fluid retention and increasing exertional dyspnea. She is not on NIPPV. However she uses 2.5 L of nasal cannula for nocturnal hypoxia. Her initial workup in the emergency department shows an unremarkable CBC. D- dimer of 0.32. Her chemistry is significant for creatinine of 1.1, BS of 134, AST of 14, and BNP of 1231. Her UA is not impressive for UTI but was positive for urinary nitrates. Her chest x-ray shows increased central lung markings with malina bronchial cuffings. On presentation to the emergency department, patient was found to be in accelerated hypertension with an initial blood pressure of 227/100 mmHg. She received initial treatment before she was sent to the floor for further treatment. Patient is being admitted for acute congestive heart failure and urinary tract infection. She is full code. New 2D echo: left ventricular ejection fraction 65-70%. Severe dilated left atrium. Moderate aortic valve stenosis. Moderate mitral stenosis. Severe mitral annular calcification. Right ventricular systolic pressure is elevated at 72 mm per mercury. No regional motion abnormalities Serial CXR's obtained initially with pulmonary vascular congestion which improved on XR, symptomatically as well Labs stable: creatinine maintained with aggressive diuresis. Patient is working with PT/OT for strengthening and balance. She will continue with this during her rehab stay with hopes of returning home with . She was treated with IV abx switched to PO keflex for the UTI. Vaginal exam was done as patient continued to have burning and vaginal irritation. This was with findings of atrophic vaginitis with recommendations for vaginal lubricant. Recommendations to follow up with PCP Dr. Schaeffer within one week with repeat labs of BMP and magnesium. - Discharge Data Discharge Date: 01/03/17 (admit date 12/25/16) Discharge Disposition: DC/Tfer to SNF 03 Condition: Good - Discharge Diagnosis/Problem(s) (1) Congestive heart failure (CHF) SNOMED Code(s): 82944207 ICD Code: I50.9 - HEART FAILURE, UNSPECIFIED Status: Acute Priority: High Qualifiers: Congestive heart failure type: unspecified congestive heart failure type Congestive heart failure chronicity: acute on chronic Qualified Code(s): I50.9 - Heart failure, unspecified (2) UTI, Urinary tract infectious disease SNOMED Code(s): 14975226 ICD Code: N39.0 - URINARY TRACT INFECTION, SITE NOT SPECIFIED Status: Acute (3) Atrophic vaginitis SNOMED Code(s): 18529297, 61690133 ICD Code: N95.2 - POSTMENOPAUSAL ATROPHIC VAGINITIS Status: Chronic Priority: High (4) Hyperglycemia due to type 2 diabetes mellitus SNOMED Code(s): 850819174957880, 943574932166807 ICD Code: E11.65 - TYPE 2 DIABETES MELLITUS WITH HYPERGLYCEMIA Status: Chronic Priority: Medium Qualifiers: Diabetes mellitus snf insulin use: without intermodal dispatcher use Qualified Code(s): E11.65 - Type 2 diabetes mellitus with hyperglycemia - Patient Summary/Data Operative Procedure(s) Performed: None Complications: None Consults: Consultations 12/25/16 18:02 Consult to Case Management [CONS] Routine Consult to Fitter Placer [CONS] Routine Consult to Spiritual Care [CONS] Routine OT Evaluation and Treatment [CONS] Routine PT Evaluation and Treatment [CONS] Routine Respiratory Care Assess and Treatment [CONS] Routine 12/25/16 18:06 Consult to Dietary [Consult to Contract Mail Carrier] [CONS] Routine Labs Pending at D/C: None - Patient Instructions Diet: Heart Healthy Diet Activity: As Tolerated Driving: Do Not Drive Showering/Bathing: May Shower Notify Provider of: Fever, Increased Pain, Nausea and/or Vomiting (worsening shortness of breath, chest pain, lower extremity swellin) - Discharge Plan Prescriptions/Med Rec: Albuterol/Ipratropium [DuoNeb 3.0-0.5 MG/3 ML] 3 ml NEB QIDRT #1 box Fluconazole [Diflucan] 100 mg PO DAILY #5 tablet Furosemide [Lasix] 40 mg PO DAILY #30 tablet metFORMIN [Glucophage] 500 mg PO BIDMEALS #60 tablet Home Medications: Home Meds Docusate Sodium [Colace] 200 mg PO BID 09/12/14 [History] Gabapentin 600 mg PO BID 09/12/14 [History] Metoprolol Succinate [Toprol XL] 25 mg PO DAILY 09/12/14 [History] Polyethylene Glycol 3350 [MiraLAX] 17 gm PO BID PRN 02/18/15 [History] traMADol [Ultram] 50 mg PO Q6H PRN 04/29/15 [History] Cholecalciferol (Vitamin D3) [Vitamin D3] 1,000 unit PO DAILY 08/10/15 [History] Simvastatin 20 mg PO BEDTIME 08/10/15 [History] Valsartan [Diovan] 320 mg PO DAILY 08/10/15 [History] Vit C/Vit E Ac/Lut/Mineral 1 [Prosight with Lutein] 1 each PO DAILY 08/10/15 [ History] amLODIPine Besylate [Amlodipine Besylate] 10 mg PO DAILY 08/10/15 [History] traZODone 200 mg PO DAILY 08/10/15 [History] Aspirin 81 mg PO DAILY 10/19/15 [History] Levothyroxine [Synthroid] 50 mcg PO DAILY 10/19/15 [History] Dicyclomine HCl [Bentyl] 20 mg PO Q6HR 10/20/15 [History] Albuterol/Ipratropium [DuoNeb 3.0-0.5 MG/3 ML] 3 ml NEB QIDRT #1 box 01/03/17 [ Rx] Fluconazole [Diflucan] 100 mg PO DAILY #5 tablet 01/03/17 [Rx] Furosemide [Lasix] 40 mg PO DAILY #30 tablet 01/03/17 [Rx] metFORMIN [Glucophage] 500 mg PO BIDMEALS #60 tablet 01/03/17 [Rx] Patient Handouts: Urinary Tract Infection, Adult, [id number], Hypertension, [id number], Heart Failure, [id number] Forms: ED Department Discharge Referrals: Jonny Peterson [Other] - 01/08/17 11:00 am (Urology follow-up. Appointment is in Central Standard Time.) Germain Schaeffer MD [Primary Care Provider] - - Discharge Summary/Plan Comment DC Time >30 min.: Yes (40 min) - General Info Date of Service: 01/03/17 Admission Dx/Problem (Free Text: Admission Diagnosis/Problem Admission Diagnosis/Problem CHF Doing well; no SOB/CP or edema, no dizziness with activity. Still on supplemental oxygen during the day with attempts to wean. Plans for DC to NH/SNF today for rehab stay Functional Status: Reports: pain controlled, tolerating diet, ambulating, urinating. Denies: new symptoms - Review of Systems General: Reports: No Symptoms, Weakness (improving) HEENT: Reports: no symptoms Pulmonary: Reports: no symptoms. Denies: shortness of breath, cough Cardiovascular: Reports: No Symptoms. Denies: Chest Pain, Palpitations, Dyspnea on Exertion Gastrointestinal: Reports: No symptoms Genitourinary: Reports: no symptoms Musculoskeletal: Reports: no symptoms Skin: Reports: other (vaginal irritation) Neurological: Reports: No Symptoms. Denies: Confusion, Dizziness, Headache Psychiatric: Reports: no symptoms - Patient Data Vitals - Most Recent: Last Vital Signs Temp 97.9 F 01/03/17 02:57 Pulse 77 01/03/17 02:57 Resp 16 01/03/17 02:57 BP 138/58 L 01/03/17 02:57 Pulse Ox 95 01/03/17 06:26 Weight - Most Recent: 97.795 kg I&O - Last 24 hours: Intake & Output 01/02/17 01/03/17 01/03/17 22:59 06:59 14:59 Intake Total 880 350 Output Total 1200 600 Balance -320 -250 Lab Results - Last 24 hrs: Laboratory Results - last 24 hr 01/02/17 01/02/17 01/03/17 Range/Units 06:40 20:10 04:10 Sodium 132 L (136-145) mEq/L Potassium 4.6 (3.5-5.1) mEq/L Chloride 94 L (98-107) mEq/L Carbon Dioxide 36 H (21-32) mEq/L Anion Gap 6.6 (5-15) BUN 20 H (7-18) mg/dL Creatinine 1.3 H (0.55-1.02) mg/dL Est Cr Clr Drug Dosing 23.55 mL/min Estimated GFR (MDRD) 39 (>60) mL/min BUN/Creatinine Ratio 15.4 (14-18) Glucose 122 H (83-115) mg/dL POC Glucose 148 H (83-110) mg/dL Calcium 9.5 (8.5-10.1) mg/dL Magnesium 1.9 (1.8-2.4) mg/dl 01/03/17 Range/Units 06:04 Sodium (136-145) mEq/L Potassium (3.5-5.1) mEq/L Chloride (98-107) mEq/L Carbon Dioxide (21-32) mEq/L Anion Gap (5-15) BUN (7-18) mg/dL Creatinine (0.55-1.02) mg/dL Est Cr Clr Drug Dosing mL/min Estimated GFR (MDRD) (>60) mL/min BUN/Creatinine Ratio (14-18) Glucose (83-115) mg/dL POC Glucose 108 (83-110) mg/dL Calcium (8.5-10.1) mg/dL Magnesium (1.8-2.4) mg/dl TRU Results - Last 24 hrs: Microbiology 12/26/16 02:35 Aerobic Blood Culture - Final Blood - Venous - Lab Draw NO GROWTH AFTER 7 DAYS Anaerobic Blood Culture - Final NO GROWTH AFTER 7 DAYS 12/26/16 02:15 Aerobic Blood Culture - Final Blood - Venous NO GROWTH AFTER 7 DAYS Anaerobic Blood Culture - Final NO GROWTH AFTER 7 DAYS Med Orders - Current: Current Medications Acetaminophen (Tylenol) 650 mg PO Q4H PRN PRN Reason: Pain (Mild 1-3)/fever Last Admin: 12/25/16 21:27 Dose: 650 mg Hydrocodone Bitart/Acetaminophen ([place] 325-5 Mg) 1 tab PO Q4H PRN PRN Reason: Pain (moderate 4-6) Albuterol/Ipratropium (Duoneb 3.0-0.5 Mg/3 Ml) 3 ml NEB QIDRT [facility] Last Admin: 01/03/17 06:26 Dose: 3 ml Amlodipine Besylate (Norvasc) 10 mg PO DAILY [facility] Last Admin: 01/02/17 08:16 Dose: 10 mg Aspirin (Aspirin) 81 mg PO DAILY [facility] Last Admin: 01/02/17 08:16 Dose: 81 mg Bisacodyl (Dulcolax) 5 mg PO DAILY PRN PRN Reason: Constipation Last Admin: 01/01/17 18:48 Dose: 5 mg Cephalexin (Keflex) 250 mg PO Q8H [facility] Last Admin: 01/03/17 03:01 Dose: 250 mg Cholecalciferol (Vitamin D3) 1,000 units PO DAILY [facility] Last Admin: 01/02/17 08:15 Dose: 1,000 units Dextrose/Water (Dextrose 50% In Water) 50 ml IVPUSH ASDIRECTED PRN PRN Reason: Hypoglycemia Docusate Sodium (Colace) 100 mg PO BID PRN PRN Reason: Constipation Docusate Sodium (Colace) 200 mg PO BID [facility] Last Admin: 01/02/17 20:14 Dose: Not Given Furosemide (Lasix) 40 mg PO DAILY [facility] Last Admin: 01/02/17 08:56 Dose: Not Given Gabapentin (Neurontin) 600 mg PO BID [facility] Last Admin: 01/02/17 20:12 Dose: 600 mg Heparin Sodium (Porcine) (Heparin Sodium) 5,000 units SUBCUT Q8H [facility] Last Admin: 01/03/17 03:01 Dose: 5,000 units Hydralazine HCl (Apresoline) 10 mg IVPUSH Q4H PRN PRN Reason: Hypertension Last Admin: 12/25/16 19:29 Dose: 10 mg Promethazine HCl 12.5 mg/ (Sodium Chloride) 50.5 mls @ 100 mls/hr IV Q6H PRN PRN Reason: Nausea/Vomiting Insulin Aspart (Novolog) 0 unit SUBCUT BID@0700,2100 [facility] PRN Reason: Protocol Last Admin: 01/03/17 06:09 Dose: Not Given Levothyroxine Sodium (Synthroid) 50 mcg PO ACBRK [facility] Last Admin: 01/03/17 06:08 Dose: 50 mcg Lorazepam (Ativan) 0.5 mg IV Q6H PRN PRN Reason: Anxiety Losartan Potassium (Cozaar) 150 mg PO DAILY [facility] Last Admin: 01/01/17 12:39 Dose: Not Given Metformin HCl (Glucophage) 500 mg PO BIDMEALS [facility] Last Admin: 01/03/17 06:08 Dose: 500 mg Metoprolol Succinate (Toprol Xl) 25 mg PO DAILY [facility] Last Admin: 01/02/17 08:17 Dose: 25 mg Metoprolol Tartrate (Lopressor) 5 mg IVPUSH Q4H PRN PRN Reason: Tachycardia Nystatin (Nystop) 0 gm TOP QID PRN PRN Reason: Rash Last Admin: 12/31/16 19:44 Dose: 1 unit Ondansetron HCl (Zofran) 4 mg IV Q6H PRN PRN Reason: Nausea/Vomiting Last Admin: 01/02/17 11:18 Dose: 4 mg Polyethylene Glycol (Miralax) 17 gm PO BID PRN PRN Reason: Constipation Last Admin: 01/02/17 11:22 Dose: 17 gm Saccharomyces Boulardii (Florastor) 250 mg PO BID [facility] Last Admin: 01/02/17 20:12 Dose: 250 mg Senna/Docusate Sodium (Senna Plus) 1 tab PO BID PRN PRN Reason: Constipation Simvastatin (Zocor) 20 mg PO BEDTIME [facility] Last Admin: 01/02/17 20:12 Dose: 20 mg Sodium Chloride (Saline Flush) 10 ml FLUSH ASDIRECTED PRN PRN Reason: Keep Vein Open Last Admin: 12/25/16 16:04 Dose: 10 ml Tramadol HCl (Ultram) 50 mg PO Q6H PRN PRN Reason: Pain Trazodone HCl (Trazodone) 200 mg PO BEDTIME [facility] Last Admin: 01/02/17 20:12 Dose: 200 mg Vit A/Vit C/Vit E/Selen/Cu/Zn/Lutei (Icaps Mv) 1 tab PO DAILY [facility] Last Admin: 01/02/17 08:14 Dose: 1 tab Discontinued Medications Albuterol/Ipratropium (Duoneb 3.0-0.5 Mg/3 Ml) 3 ml NEB Q4H PRN PRN Reason: Shortness Of Breath/wheezing Last Admin: 12/30/16 11:27 Dose: 3 ml Bisacodyl (Dulcolax) 10 mg RECTAL ONETIME ONE Stop: 01/02/17 08:23 Last Admin: 01/02/17 08:37 Dose: 10 mg Clonidine HCl (Catapres) 0.2 mg PO ONETIME ONE Stop: 12/25/16 21:17 Last Admin: 12/25/16 21:27 Dose: 0.2 mg Enoxaparin Sodium (Lovenox) 30 mg SUBCUT DAILY [facility] Last Admin: 12/26/16 10:11 Dose: Not Given Furosemide (Lasix) 40 mg IVPUSH NOW ONE Stop: 12/25/16 16:37 Last Admin: 12/25/16 16:54 Dose: 40 mg Furosemide (Lasix) 20 mg IVPUSH NOW ONE Stop: 01/01/17 08:01 Last Admin: 01/01/17 09:34 Dose: 20 mg Furosemide (Lasix) 20 mg IVPUSH NOW ONE Stop: 01/02/17 08:21 Last Admin: 01/02/17 08:37 Dose: 20 mg Glipizide (Glucotrol) 2.5 mg PO BIDAC [facility] Last Admin: 12/28/16 06:20 Dose: 2.5 mg Hydrocortisone Sodium Succinate (Solu-Cortef) 100 mg IVPUSH Q6H [facility] Stop: 12/28/16 01:00 Last Admin: 12/27/16 23:49 Dose: 100 mg Furosemide 100 mg/ Sodium (Chloride) 100 mls @ 5 mls/hr IV TITRATE [facility] PRN Reason: Protocol Last Admin: 12/25/16 20:07 Dose: 5 mls/hr Ceftriaxone Sodium 1 gm/ (Sodium Chloride) 100 mls @ 200 mls/hr IV Q24H [facility] Stop: 12/30/16 09:01 Last Admin: 12/29/16 08:33 Dose: 200 mls/hr Potassium Chloride 10 meq/ (Premix) 100 mls @ 100 mls/hr IV Q1H [facility] Stop: 12/26/16 04:14 Last Admin: 12/26/16 03:37 Dose: 100 mls/hr Magnesium Sulfate 2 gm/ Premix 50 mls @ 25 mls/hr IV Q2H [facility] Stop: 12/26/16 04:44 Last Admin: 12/26/16 02:56 Dose: 25 mls/hr Magnesium Sulfate (Magnesium Sulfate 2 Gm In Water 50 Ml) Confirm Administered Dose 50 mls @ as directed .ROUTE .STK-MED ONE Stop: 12/26/16 01:57 Last Admin: 12/26/16 02:55 Dose: 2 gm Dopamine HCl/Dextrose (Dopamine In D5w 400 Mg/250 Ml) 400 mg in 250 mls @ 7.892 mls/hr IV TITRATE SHREYA; 2 MCG/KG/MIN PRN Reason: Protocol Last Titration: 12/26/16 14:32 Dose: 0 mcg/kg/min, 0 mls/hr Sodium Chloride (Normal Saline) 1,000 mls @ 25 mls/hr IV ASDIRECTED [facility] Stop: 12/31/16 17:00 Last Admin: 12/27/16 09:11 Dose: 25 mls/hr Magnesium Sulfate 2 gm/ Premix 50 mls @ 25 mls/hr IV ONETIME ONE Stop: 12/30/16 10:29 Last Admin: 12/30/16 09:27 Dose: 25 mls/hr Ceftriaxone Sodium 1 gm/ (Sodium Chloride) 100 mls @ 200 mls/hr IV Q24H [facility] Last Admin: 12/31/16 21:20 Dose: 200 mls/hr Magnesium Sulfate 2 gm/ Premix 50 mls @ 25 mls/hr IV ONETIME ONE Stop: 01/01/17 13:29 Last Admin: 01/01/17 11:40 Dose: 25 mls/hr Insulin Aspart (Novolog) 0 unit SUBCUT BID [facility] PRN Reason: Protocol Last Admin: 12/30/16 09:40 Dose: Not Given Magnesium Sulfate (Pharmacy To Dose - Magnesium Replacement) 1 dose .XX ASDIRECTED [facility] Metformin HCl (Glucophage) 500 mg PO WITHBREAKFAST [facility] Last Admin: 12/26/16 06:44 Dose: Not Given Metoprolol Tartrate (Lopressor) 5 mg IVPUSH ONETIME ONE Stop: 12/25/16 15:43 Last Admin: 12/25/16 16:04 Dose: 5 mg Morphine Sulfate (Morphine) 1 mg IVPUSH Q4H PRN PRN Reason: Pain Stop: 12/30/16 18:00 Morphine Sulfate (Morphine) 0.5 mg IVPUSH Q4H PRN PRN Reason: Pain Stop: 12/30/16 18:00 Nitrofurantoin Macrocrystals (Macrobid) 100 mg PO ONETIME ONE Stop: 12/25/16 17:18 Last Admin: 12/25/16 17:31 Dose: 100 mg Phenazopyridine HCl (Urinary Pain Relief) 100 mg PO BID [facility] Polyethylene Glycol (Miralax) 17 gm PO DAILY PRN PRN Reason: Constipation Last Admin: 12/27/16 18:10 Dose: 17 gm Potassium Chloride (Pharmacy To Dose - Potassium Replacement) 1 dose .XX ASDIRECTED [facility] - Exam Quality Assessment: Reports: supplemental oxygen, DVT prophylaxis General: Reports: alert, oriented, cooperative, no acute distress HEENT: Reports: Pupils equal, Pupils reactive, EOMI, Mucous membr. moist/pink Neck: Reports: supple Lungs: Reports: Clear to auscultation, Normal respiratory effort, Decreased breath sounds (throughout) Cardiovascular: Reports: Regular Rate, Regular Rhythm Abdomen: Reports: bowel sounds present, soft, no tenderness, no distension (Female) Exam: Deferred Rectal (Female) Exam: Deferred Extremities: Reports: edema (minimal to trace) Neurological: Reports: no new focal deficit Psy/Mental Status: Reports: alert, normal affect, normal mood *Q Meaningful Use (DIS) - VTE *Q VTE Criteria *Q: - Stroke *Q Stroke Criteria *Q: - AMI *Q AMI Criteria *Q: <Cristal Ackerman - Last Filed: 01/03/17 14:18> Discharge Summary - Hospital Course Free Text/Narrative:: Follow up with PCP, DC to [place] today. - Discharge Diagnosis/Problem(s) (1) Congestive heart failure (CHF) SNOMED Code(s): 44186887 ICD Code: I50.9 - HEART FAILURE, UNSPECIFIED Status: Acute Priority: High Qualifiers: Congestive heart failure type: unspecified congestive heart failure type Congestive heart failure chronicity: acute on chronic Qualified Code(s): I50.9 - Heart failure, unspecified (2) UTI, Urinary tract infectious disease SNOMED Code(s): 82261158 ICD Code: N39.0 - URINARY TRACT INFECTION, SITE NOT SPECIFIED Status: Acute (3) Hypertension SNOMED Code(s): 31398583 ICD Code: I10 - ESSENTIAL (PRIMARY) HYPERTENSION Status: Chronic Priority : Low Onset Date: 10/20/15 Problem Details: - Fairly stable - Continue BP meds - Monitor fluid and salt intake Qualifiers: Hypertension type: essential hypertension Qualified Code(s): I10 - Essential (primary) hypertension - Patient Summary/Data Consults: Consultations 12/25/16 18:02 Consult to Case Management [CONS] Routine Consult to Fitter Placer [CONS] Routine Consult to Spiritual Care [CONS] Routine OT Evaluation and Treatment [CONS] Routine PT Evaluation and Treatment [CONS] Routine Respiratory Care Assess and Treatment [CONS] Routine 12/25/16 18:06 Consult to Dietary [Consult to Contract Mail Carrier] [CONS] Routine - Patient Data Vitals - Most Recent: Last Vital Signs Temp 36.4 C 01/03/17 07:48 Pulse 71 01/03/17 08:41 Resp 18 01/03/17 07:48 BP 124/52 L 01/03/17 08:41 Pulse Ox 95 01/03/17 09:54 I&O - Last 24 hours: Intake & Output 01/02/17 01/03/17 01/03/17 22:59 06:59 14:59 Intake Total 880 350 240 Output Total 1200 600 450 Balance -320 -250 -210 Lab Results - Last 24 hrs: Laboratory Results - last 24 hr 01/02/17 01/03/17 01/03/17 Range/Units 20:10 04:10 06:04 Sodium 132 L (136-145) mEq/L Potassium 4.6 (3.5-5.1) mEq/L Chloride 94 L (98-107) mEq/L Carbon Dioxide 36 H (21-32) mEq/L Anion Gap 6.6 (5-15) BUN 20 H (7-18) mg/dL Creatinine 1.3 H (0.55-1.02) mg/dL Est Cr Clr Drug Dosing 23.55 mL/min Estimated GFR (MDRD) 39 (>60) mL/min BUN/Creatinine Ratio 15.4 (14-18) Glucose 122 H (83-115) mg/dL POC Glucose 148 H 108 (83-110) mg/dL Calcium 9.5 (8.5-10.1) mg/dL Med Orders - Current: Current Medications Discontinued Medications Acetaminophen (Tylenol) 650 mg PO Q4H PRN PRN Reason: Pain (Mild 1-3)/fever Last Admin: 12/25/16 21:27 Dose: 650 mg Hydrocodone Bitart/Acetaminophen ([place] 325-5 Mg) 1 tab PO Q4H PRN PRN Reason: Pain (moderate 4-6) Albuterol/Ipratropium (Duoneb 3.0-0.5 Mg/3 Ml) 3 ml NEB Q4H PRN PRN Reason: Shortness Of Breath/wheezing Last Admin: 12/30/16 11:27 Dose: 3 ml Albuterol/Ipratropium (Duoneb 3.0-0.5 Mg/3 Ml) 3 ml NEB QIDRT [facility] Last Admin: 01/03/17 09:53 Dose: 3 ml Amlodipine Besylate (Norvasc) 10 mg PO DAILY [facility] Last Admin: 01/03/17 08:42 Dose: 10 mg Aspirin (Aspirin) 81 mg PO DAILY [facility] Last Admin: 01/03/17 08:43 Dose: 81 mg Bisacodyl (Dulcolax) 5 mg PO DAILY PRN PRN Reason: Constipation Last Admin: 01/01/17 18:48 Dose: 5 mg Bisacodyl (Dulcolax) 10 mg RECTAL ONETIME ONE Stop: 01/02/17 08:23 Last Admin: 01/02/17 08:37 Dose: 10 mg Cephalexin (Keflex) 250 mg PO Q8H [facility] Last Admin: 01/03/17 03:01 Dose: 250 mg Cholecalciferol (Vitamin D3) 1,000 units PO DAILY [facility] Last Admin: 01/03/17 08:42 Dose: 1,000 units Clonidine HCl (Catapres) 0.2 mg PO ONETIME ONE Stop: 12/25/16 21:17 Last Admin: 12/25/16 21:27 Dose: 0.2 mg Dextrose/Water (Dextrose 50% In Water) 50 ml IVPUSH ASDIRECTED PRN PRN Reason: Hypoglycemia Docusate Sodium (Colace) 100 mg PO BID PRN PRN Reason: Constipation Docusate Sodium (Colace) 200 mg PO BID [facility] Last Admin: 01/03/17 08:51 Dose: Not Given Enoxaparin Sodium (Lovenox) 30 mg SUBCUT DAILY [facility] Last Admin: 12/26/16 10:11 Dose: Not Given Furosemide (Lasix) 40 mg IVPUSH NOW ONE Stop: 12/25/16 16:37 Last Admin: 12/25/16 16:54 Dose: 40 mg Furosemide (Lasix) 40 mg PO DAILY [facility] Last Admin: 01/03/17 08:43 Dose: 40 mg Furosemide (Lasix) 20 mg IVPUSH NOW ONE Stop: 01/01/17 08:01 Last Admin: 01/01/17 09:34 Dose: 20 mg Furosemide (Lasix) 20 mg IVPUSH NOW ONE Stop: 01/02/17 08:21 Last Admin: 01/02/17 08:37 Dose: 20 mg Gabapentin (Neurontin) 600 mg PO BID [facility] Last Admin: 01/03/17 08:42 Dose: 600 mg Glipizide (Glucotrol) 2.5 mg PO BIDAC [facility] Last Admin: 12/28/16 06:20 Dose: 2.5 mg Heparin Sodium (Porcine) (Heparin Sodium) 5,000 units SUBCUT Q8H [facility] Last Admin: 01/03/17 09:28 Dose: Not Given Hydralazine HCl (Apresoline) 10 mg IVPUSH Q4H PRN PRN Reason: Hypertension Last Admin: 12/25/16 19:29 Dose: 10 mg Hydrocortisone Sodium Succinate (Solu-Cortef) 100 mg IVPUSH Q6H [facility] Stop: 12/28/16 01:00 Last Admin: 12/27/16 23:49 Dose: 100 mg Promethazine HCl 12.5 mg/ (Sodium Chloride) 50.5 mls @ 100 mls/hr IV Q6H PRN PRN Reason: Nausea/Vomiting Furosemide 100 mg/ Sodium (Chloride) 100 mls @ 5 mls/hr IV TITRATE [facility]RE[facility] PRN Reason: Protocol Last Admin: 12/25/16 20:07 Dose: 5 mls/hr Ceftriaxone Sodium 1 gm/ (Sodium Chloride) 100 mls @ 200 mls/hr IV Q24H [facility] Stop: 12/30/16 09:01 Last Admin: 12/29/16 08:33 Dose: 200 mls/hr Potassium Chloride 10 meq/ (Premix) 100 mls @ 100 mls/hr IV Q1H [facility] Stop: 12/26/16 04:14 Last Admin: 12/26/16 03:37 Dose: 100 mls/hr Magnesium Sulfate 2 gm/ Premix 50 mls @ 25 mls/hr IV Q2H [facility] Stop: 12/26/16 04:44 Last Admin: 12/26/16 02:56 Dose: 25 mls/hr Magnesium Sulfate (Magnesium Sulfate 2 Gm In Water 50 Ml) Confirm Administered Dose 50 mls @ as directed .ROUTE .STK-MED ONE Stop: 12/26/16 01:57 Last Admin: 12/26/16 02:55 Dose: 2 gm Dopamine HCl/Dextrose (Dopamine In D5w 400 Mg/250 Ml) 400 mg in 250 mls @ 7.892 mls/hr IV TITRATE SHREYA; 2 MCG/KG/MIN PRN Reason: Protocol Last Titration: 12/26/16 14:32 Dose: 0 mcg/kg/min, 0 mls/hr Sodium Chloride (Normal Saline) 1,000 mls @ 25 mls/hr IV ASDIRECTED [facility] Stop: 12/31/16 17:00 Last Admin: 12/27/16 09:11 Dose: 25 mls/hr Magnesium Sulfate 2 gm/ Premix 50 mls @ 25 mls/hr IV ONETIME ONE Stop: 12/30/16 10:29 Last Admin: 12/30/16 09:27 Dose: 25 mls/hr Ceftriaxone Sodium 1 gm/ (Sodium Chloride) 100 mls @ 200 mls/hr IV Q24H [facility] Last Admin: 12/31/16 21:20 Dose: 200 mls/hr Magnesium Sulfate 2 gm/ Premix 50 mls @ 25 mls/hr IV ONETIME ONE Stop: 01/01/17 13:29 Last Admin: 01/01/17 11:40 Dose: 25 mls/hr Insulin Aspart (Novolog) 0 unit SUBCUT BID [facility] PRN Reason: Protocol Last Admin: 12/30/16 09:40 Dose: Not Given Insulin Aspart (Novolog) 0 unit SUBCUT BID@[id number],2100 SHREYA PRN Reason: Protocol Last Admin: 01/03/17 06:09 Dose: Not Given Levothyroxine Sodium (Synthroid) 50 mcg PO ACBRK [facility] Last Admin: 01/03/17 06:08 Dose: 50 mcg Lorazepam (Ativan) 0.5 mg IV Q6H PRN PRN Reason: Anxiety Losartan Potassium (Cozaar) 150 mg PO DAILY [facility] Last Admin: 01/03/17 08:43 Dose: 150 mg Magnesium Sulfate (Pharmacy To Dose - Magnesium Replacement) 1 dose .XX ASDIRECTED [facility] Metformin HCl (Glucophage) 500 mg PO WITHBREAKFAST [facility] Last Admin: 12/26/16 06:44 Dose: Not Given Metformin HCl (Glucophage) 500 mg PO BIDMEALS [facility] [facility] Last Admin: 01/03/17 06:08 Dose: 500 mg Metoprolol Succinate (Toprol Xl) 25 mg PO DAILY [facility] Last Admin: 01/03/17 08:41 Dose: 25 mg Metoprolol Tartrate (Lopressor) 5 mg IVPUSH ONETIME ONE Stop: 12/25/16 15:43 Last Admin: 12/25/16 16:04 Dose: 5 mg Metoprolol Tartrate (Lopressor) 5 mg IVPUSH Q4H PRN PRN Reason: Tachycardia Morphine Sulfate (Morphine) 1 mg IVPUSH Q4H PRN PRN Reason: Pain Stop: 12/30/16 18:00 Morphine Sulfate (Morphine) 0.5 mg IVPUSH Q4H PRN PRN Reason: Pain Stop: 12/30/16 18:00 Nitrofurantoin Macrocrystals (Macrobid) 100 mg PO ONETIME ONE Stop: 12/25/16 17:18 Last Admin: 12/25/16 17:31 Dose: 100 mg Nystatin (Nystop) 0 gm TOP QID PRN PRN Reason: Rash Last Admin: 12/31/16 19:44 Dose: 1 unit Ondansetron HCl (Zofran) 4 mg IV Q6H PRN PRN Reason: Nausea/Vomiting Last Admin: 01/02/17 11:18 Dose: 4 mg Phenazopyridine HCl (Urinary Pain Relief) 100 mg PO BID [facility] Polyethylene Glycol (Miralax) 17 gm PO DAILY PRN PRN Reason: Constipation Last Admin: 12/27/16 18:10 Dose: 17 gm Polyethylene Glycol (Miralax) 17 gm PO BID PRN PRN Reason: Constipation Last Admin: 01/02/17 11:22 Dose: 17 gm Potassium Chloride (Pharmacy To Dose - Potassium Replacement) 1 dose .XX ASDIRECTED [facility] Saccharomyces Boulardii (Florastor) 250 mg PO BID [facility] Last Admin: 01/03/17 08:42 Dose: 250 mg Senna/Docusate Sodium (Senna Plus) 1 tab PO BID PRN PRN Reason: Constipation Simvastatin (Zocor) 20 mg PO BEDTIME [facility] Last Admin: 01/02/17 20:12 Dose: 20 mg Sodium Chloride (Saline Flush) 10 ml FLUSH ASDIRECTED PRN PRN Reason: Keep Vein Open Last Admin: 12/25/16 16:04 Dose: 10 ml Tramadol HCl (Ultram) 50 mg PO Q6H PRN PRN Reason: Pain Trazodone HCl (Trazodone) 200 mg PO BEDTIME [facility] Last Admin: 01/02/17 20:12 Dose: 200 mg Vit A/Vit C/Vit E/Selen/Cu/Zn/Lutei (Icaps Mv) 1 tab PO DAILY [facility] Last Admin: 01/03/17 08:42 Dose: 1 tab *Q Meaningful Use (DIS) - VTE *Q VTE Criteria *Q: - Stroke *Q Stroke Criteria *Q: - AMI *Q AMI Criteria *Q:
[2017-01-03 07:50] VITALS: BP 124/52
[2017-01-03] MEDS: Metoprolol Succinate 25 MG Tab.ER PO SCH (08:41)
[2017-01-03] MEDS: amLODIPine 10 MG Tab PO SCH (08:42)
[2017-01-03] MEDS: Cholecalciferol (Vitamin D3) 1,000 Unit Tab PO SCH (08:42)
[2017-01-03] MEDS: Multivitamins with Minerals/Folic Acid/Lutein/Zeaxanth Tab PO SCH (08:42)
[2017-01-03] MEDS: Saccharomyces Boulardii (Probiotic) 250 MG Cap PO SCH (08:42)
[2017-01-03] MEDS: Gabapentin 600 MG Tab PO SCH (08:42)
[2017-01-03] MEDS: Aspirin 81 MG Tab.Chew PO SCH (08:43)
[2017-01-03] MEDS: Furosemide 40 MG Tab PO SCH (08:43)
[2017-01-03] MEDS: Losartan 100 MG Tab PO SCH (08:43)
[2017-01-03] MEDS: Docusate Sodium 100 MG Cap PO SCH (08:51)
== END 2017-01-03 11:30 | DRG 292 ==
LOC: JD.ED 14:29 → UNDOADMIN 17:29 → JD.MS 17:29 → JD.ICU 12-26 03:03 → JD.MS 12-26 03:32 → JD.ICU 12-27 11:58 → JD.MS 12-27 20:22
PROVIDERS: ADMIT Internal Medicine; ATTEND Internal Medicine
PROC: 0T9B70Z Drainage of Bladder with Drainage Device, Via Natural or Artificial Opening (ICD-10-PCS; principal; 2016-12-25)
DX: I11.0 Hypertensive heart disease with heart failure (principal); N39.0 Urinary tract infection, site not specified; I50.9 Heart failure, unspecified; E66.01 Morbid (severe) obesity due to excess calories; E78.5 Hyperlipidemia, unspecified; D50.0 Iron deficiency anemia secondary to blood loss (chronic); R10.9 Unspecified abdominal pain; G89.29 Other chronic pain; F32.9 Major depressive disorder, single episode, unspecified; E11.9 Type 2 diabetes mellitus without complications; M19.90 Unspecified osteoarthritis, unspecified site; R13.10 Dysphagia, unspecified; Z86.711 Personal history of pulmonary embolism; Z98.1 Arthrodesis status; R32 Unspecified urinary incontinence; N95.2 Postmenopausal atrophic vaginitis; E11.65 Type 2 diabetes mellitus with hyperglycemia; K21.9 Gastro-esophageal reflux disease without esophagitis; I95.9 Hypotension, unspecified; R29.6 Repeated falls; K58.9 Irritable bowel syndrome, unspecified
CPT/HCPCS: 36415; 51702; 71020; 80053; 81001; 83880; 85025; 87086; 93005; 96374; 96375; 99285; J1940; J7050; 36600; 71010; 71010-26; 80048; 82533; 82553; 82803; 82962; 83036; 83605; 83735; 84439; 84443; 84484; 85027; 85379; 86140; 87040; 93306; 94640-76; 94664; 94760; 94761; 97110-GO; 97110-GP; 97116-GP; 97162-GP; 97167-GO; 97530-GO; 97535-GO; 99284; A9270-GY; J0360; J0696; J1265; J1644; J1720; J1815-GY; J2405; J3475; J3480; J3490; J7030; J7040

== ENCOUNTER 2017-01-07 13:51 | Emergency (ER) | payer MEDICARE, BC ==
[2017-01-07] MEDS ORDERED: Sodium Chloride 0.9% 10 ML Syringe FLUSH PRN (14:21)
--- NOTE | 2017-01-07 15:31 | EDM.PDOC ---
ED HPI GENERAL MEDICAL PROBLEM - General Chief Complaint: Neurological Problem Stated Complaint: CONFUSED Time Seen by Provider: 01/07/17 14:12 Source of Information: Reports: Patient History Limitations: Reports: Altered Mental Status, Other (mild confusion) - History of Present Illness INITIAL COMMENTS - FREE TEXT/NARRATIVE: The patient is an 81-year-old female who was sent to the emergency department for the evaluation of confusion. The patient has a history of CHF and was recently admitted to the hospital here for a CHF exacerbation. She has also been told that she has valve problems. She was discharged to a long-term for rehabilitation on 01-03. Apparently she had some confusion this morning and also had low blood pressure and so was sent to the emergency department for evaluation. The patient states that she feels fine. She's not exactly sure why she needed to be evaluated. She states that she feels fatigued and is often just generally tired but doesn't have a specific complaint. She is using continuous oxygen via nasal cannula now. She denies chest pain or shortness of breath. She says that she did have a mild throbbing headache this morning. No vision changes. No focal weakness. No abdominal pain or vomiting. She hasn't had a great appetite. No skin complaint. Abdomen Pain Score (Numeric/FACES): 2 - Related Data Allergies Allergy/AdvReac Type Severity Reaction Status Date / Time amoxicillin AdvReac Nausea and Verified 12/25/16 14:47 Vomiting amoxicillin trihydrate AdvReac Nausea and Verified 12/25/16 14:47 [From Augmentin] Vomiting ciprofloxacin AdvReac Nausea and Verified 12/25/16 14:47 Vomiting potassium clavulanate AdvReac Nausea and Verified 12/25/16 14:47 [From Augmentin] Vomiting Sulfa (Sulfonamide AdvReac Nausea and Verified 12/25/16 14:47 Antibiotics) Vomiting Home Meds: Home Meds Docusate Sodium [Colace] 200 mg PO BID 09/12/14 [History] Gabapentin 600 mg PO BID 09/12/14 [History] Metoprolol Succinate [Toprol XL] 25 mg PO DAILY 09/12/14 [History] Polyethylene Glycol 3350 [MiraLAX] 17 gm PO BID PRN 02/18/15 [History] traMADol [Ultram] 50 mg PO Q6H PRN 04/29/15 [History] Cholecalciferol (Vitamin D3) [Vitamin D3] 1,000 unit PO DAILY 08/10/15 [History] Simvastatin 20 mg PO BEDTIME 08/10/15 [History] Valsartan [Diovan] 320 mg PO DAILY 08/10/15 [History] Vit C/Vit E Ac/Lut/Mineral 1 [Prosight with Lutein] 1 each PO DAILY 08/10/15 [ History] amLODIPine Besylate [Amlodipine Besylate] 10 mg PO DAILY 08/10/15 [History] traZODone 200 mg PO DAILY 08/10/15 [History] Aspirin 81 mg PO DAILY 10/19/15 [History] Levothyroxine [Synthroid] 50 mcg PO DAILY 10/19/15 [History] Dicyclomine HCl [Bentyl] 20 mg PO Q6HR 10/20/15 [History] Albuterol/Ipratropium [DuoNeb 3.0-0.5 MG/3 ML] 3 ml NEB QIDRT #1 box 01/03/17 [ Rx] Fluconazole [Diflucan] 100 mg PO DAILY #5 tablet 01/03/17 [Rx] Furosemide [Lasix] 40 mg PO DAILY #30 tablet 01/03/17 [Rx] metFORMIN [Glucophage] 500 mg PO BIDMEALS #60 tablet 01/03/17 [Rx] Past Medical History HEENT History: Reports: None Cardiovascular History: Reports: High Cholesterol, Hypertension Respiratory History: Reports: PE Gastrointestinal History: Reports: Chronic Constipation, Diverticulosis, GERD, Hemorrhoids, Irritable Bowel Syndrome Other Gastrointestinal History: gastric ulcer, abdominal pain, lapartomy Other Genitourinary History: cystitis [employer] History: Reports: Musculoskeletal History: Reports: Osteoarthritis Psychiatric History: Reports: Depression Endocrine/Metabolic History: Reports: Diabetes, Type II, Hypothyroidism, Obesity /BMI 30+ Hematologic History: Reports: Anemia Dermatologic History: Reports: Seborrheic Dermatitis - Infectious Disease History Infectious Disease History: Reports: Rheumatic Fever - Past Surgical History HEENT Surgical History: Reports: Tonsillectomy Other Musculoskeletal Surgeries/Procedures:: osteoarthritis to L knee, R knee pain, R knee arthroscopy, R total knee, L total knee, hip surgery Social & Family History - Family History Cardiac: Reports: [place] Other Cardiac Family History: Mother OBGYN: Reports: Endocrine/Metabolic: Reports: Diabetes, type II Oncologic: Reports: Colon - Tobacco Use Smoking Status *Q: Never Smoker Second Hand Smoke Exposure: No - Caffeine Use Caffeine Use: Reports: Coffee, Tea Other Caffeine Use: coffee in the morning - Alcohol Use Days Per Week of Alcohol Use: 0 Number of Drinks Per Day: 0 Total Drinks Per Week: 0 - Recreational Drug Use Recreational Drug Use: No Drug Use in Last 12 Months: No ED ROS GENERAL - Review of Systems Review Of Systems: See Below Constitutional: Reports: Malaise, Weakness, Fatigue. Denies: Fever HEENT: Reports: No Symptoms Respiratory: Denies: Shortness of Breath Cardiovascular: Denies: Chest Pain Endocrine: Reports: Fatigue GI/Abdominal: Denies: Abdominal Pain : Denies: Dysuria Musculoskeletal: Reports: No Symptoms Skin: Reports: No Symptoms Neurological: Reports: Confusion Psychiatric: Reports: No Symptoms Hematologic/Lymphatic: Reports: No Symptoms - Physical Exam Exam: See Below Exam Limited By: No Limitations General Appearance: Alert, Other (Chronically ill-appearing) Eye Exam: Bilateral Eye: Normal Inspection Ears: Normal External Exam Nose: Normal Inspection, Normal Mucosa, No Blood Throat/Mouth: Normal Voice, Other (Dry mucous membranes) Head Exam: Atraumatic, Normocephalic Neck: Normal Inspection, Supple, Non-Tender Respiratory/Chest: No Respiratory Distress, No Accessory Muscle Use, Chest Non- Tender, Other (Few scattered wheezes) Cardiovascular: Normal Peripheral Pulses, Regular Rate, Rhythm, Other (Mild symmetric bilateral lower extremity edema, 1+) GI/Abdominal: Soft, Non-Tender, No Distention. No: Rebound Neuro Exam (Abbreviated): Alert, Oriented, CN II-XII Intact, Normal Cognition, No Motor/Sensory Deficits Psychiatric: Normal Affect, Normal Mood Skin Exam: Warm, Dry, Intact, Normal Color, No Rash Course - Vital Signs Last Recorded V/S: Last Vital Signs Temp 36.6 C 01/07/17 14:04 Pulse 66 01/07/17 14:04 Resp 20 01/07/17 14:04 BP 99/55 L 01/07/17 14:04 Pulse Ox 71 L 01/07/17 14:04 - Orders/Labs/Meds Orders: Active Orders 24 hr Category Date Time Status EKG 12 Lead [EKG Documentation Completion] [RC] STAT Care 01/07/17 14:20 Active Oxygen Therapy Adult [Oxygen Therapy] [RC] ASDIRECTED Care 01/07/17 14:21 Active Peripheral IV Care [RC] . DIRECTED Care 01/07/17 14:21 Active Peripheral IV Care [RC] . DIRECTED Care 01/07/17 14:21 Active Chest 1V Frontal [CR] Stat Exams 01/07/17 14:20 Taken CULTURE BLOOD [BC] Stat Lab 01/07/17 14:55 Received CULTURE BLOOD [BC] Stat Lab 01/07/17 15:10 Received Sodium Chloride 0.9% [Saline Flush] Med 01/07/17 14:21 Active 10 ml FLUSH ASDIRECTED PRN Blood Culture x2 Reflex Set [OM.PC] Stat Oth 01/07/17 14:20 Ordered Peripheral IV Insertion Adult [OM.PC] Routine Oth 01/07/17 14:21 Ordered Medication Orders Sodium Chloride (Saline Flush) 10 ml FLUSH ASDIRECTED PRN PRN Reason: Keep Vein Open Labs: Laboratory Tests 01/07/17 01/07/17 01/07/17 Range/Units 14:10 14:10 14:10 WBC 9.07 (3.98-10.04) K/mm3 RBC 4.09 (3.98-5.22) M/mm3 Hgb 12.0 (11.2-15.7) gm/L Hct 38.6 (34.1-44.9) % MCV 94.4 (79.4-94.8) fl MCH 29.3 (25.6-32.2) pg MCHC 31.1 L (32.2-35.5) g/dl RDW Std Deviation 52.4 H (36.4-46.3) fL Plt Count 234 (182-369) K/mm3 MPV 11.1 (9.4-12.3) fl Neut % (Auto) 69.7 (34.0-71.1) % Lymph % (Auto) 17.9 L (19.3-51.7) % [place] % (Auto) 10.5 (4.7-12.5) % Eos % (Auto) 1.5 (0.7-5.8) Baso % (Auto) 0.2 (0.1-1.2) % Neut # (Auto) 6.32 H (1.56-6.13) K/mm3 Lymph # (Auto) 1.62 (1.18-3.74) K/mm3 [place] # (Auto) 0.95 H (0.24-0.36) K/mm3 Eos # (Auto) 0.14 (0.04-0.36) K/mm3 Baso # (Auto) 0.02 (0.01-0.08) K/mm3 Sodium 129 L (136-145) mEq/L Potassium 4.4 (3.5-5.1) mEq/L Chloride 90 L (98-107) mEq/L Carbon Dioxide 34 H (21-32) mEq/L Anion Gap 9.4 (5-15) BUN 23 H (7-18) mg/dL Creatinine 1.9 H (0.55-1.02) mg/dL Est Cr Clr Drug Dosing 17.74 mL/min Estimated GFR (MDRD) 25 (>60) mL/min BUN/Creatinine Ratio 12.1 L (14-18) Glucose 118 H (83-115) mg/dL Lactic Acid (0.4-2.0) mmol/L Calcium 10.0 (8.5-10.1) mg/dL Total Bilirubin 0.4 (0.2-1.0) mg/dL AST 15 (15-37) U/L ALT 20 (14-59) U/L Alkaline Phosphatase 76 (46-116) U/L Troponin I < 0.017 (0.00-0.056) ng/mL B-Natriuretic Peptide 160 H (0-100) pg/mL Total Protein 7.3 (6.4-8.2) g/dl Albumin 3.8 (3.4-5.0) g/dl Globulin 3.5 gm/dL Albumin/Globulin Ratio 1.1 (1-2) Urine Color (Yellow) Urine Appearance (Clear) Urine pH (5.0-8.0) Ur Specific [place] (1.005-1.030) Urine Protein (Negative) Urine Glucose (UA) (Negative) Urine Ketones (Negative) Urine Occult Blood (Negative) Urine Nitrite (Negative) Urine Bilirubin (Negative) Urine Urobilinogen (0.2-1.0) Ur Leukocyte Esterase (Negative) Urine RBC (0-5) /hpf Urine WBC (0-5) /hpf Ur Epithelial Cells (0-5) /hpf Amorphous Sediment (NOT SEEN) /hpf Urine Bacteria (FEW) /hpf Urine Mucus (FEW) /hpf 01/07/17 01/07/17 Range/Units 15:10 15:35 WBC (3.98-10.04) K/mm3 RBC (3.98-5.22) M/mm3 Hgb (11.2-15.7) gm/L Hct (34.1-44.9) % MCV (79.4-94.8) fl MCH (25.6-32.2) pg MCHC (32.2-35.5) g/dl RDW Std Deviation (36.4-46.3) fL Plt Count (182-369) K/mm3 MPV (9.4-12.3) fl Neut % (Auto) (34.0-71.1) % Lymph % (Auto) (19.3-51.7) % [place] % (Auto) (4.7-12.5) % Eos % (Auto) (0.7-5.8) Baso % (Auto) (0.1-1.2) % Neut # (Auto) (1.56-6.13) K/mm3 Lymph # (Auto) (1.18-3.74) K/mm3 [place] # (Auto) (0.24-0.36) K/mm3 Eos # (Auto) (0.04-0.36) K/mm3 Baso # (Auto) (0.01-0.08) K/mm3 Sodium (136-145) mEq/L Potassium (3.5-5.1) mEq/L Chloride (98-107) mEq/L Carbon Dioxide (21-32) mEq/L Anion Gap (5-15) BUN (7-18) mg/dL Creatinine (0.55-1.02) mg/dL Est Cr Clr Drug Dosing mL/min Estimated GFR (MDRD) (>60) mL/min BUN/Creatinine Ratio (14-18) Glucose (83-115) mg/dL Lactic Acid 1.4 (0.4-2.0) mmol/L Calcium (8.5-10.1) mg/dL Total Bilirubin (0.2-1.0) mg/dL AST (15-37) U/L ALT (14-59) U/L Alkaline Phosphatase (46-116) U/L Troponin I (0.00-0.056) ng/mL B-Natriuretic Peptide (0-100) pg/mL Total Protein (6.4-8.2) g/dl Albumin (3.4-5.0) g/dl Globulin gm/dL Albumin/Globulin Ratio (1-2) Urine Color Yellow (Yellow) Urine Appearance Clear (Clear) Urine pH 6.5 (5.0-8.0) Ur Specific [place] 1.015 (1.005-1.030) Urine Protein Trace H (Negative) Urine Glucose (UA) Negative (Negative) Urine Ketones Negative (Negative) Urine Occult Blood Negative (Negative) Urine Nitrite Negative (Negative) Urine Bilirubin Negative (Negative) Urine Urobilinogen 0.2 (0.2-1.0) Ur Leukocyte Esterase 1+ H (Negative) Urine RBC 0-5 (0-5) /hpf Urine WBC 10-20 H (0-5) /hpf Ur Epithelial Cells 0-5 (0-5) /hpf Amorphous Sediment Few H (NOT SEEN) /hpf Urine Bacteria Moderate H (FEW) /hpf Urine Mucus Not seen (FEW) /hpf Meds: Medications Generic Name Dose Route Start Last Admin Trade Name Freq PRN Reason Stop Dose Admin Sodium Chloride 10 ml 01/07/17 14:21 Saline Flush FLUSH ASDIRECTED PRN Keep Vein Open - Re-Assessments/Exams Free Text/Narrative Re-Assessment/Exam: 01/07/17 16:03 EKG shows normal sinus rhythm, mildly prolonged VA interval, no significant ST or T-wave abnormality, overall similar to December 27, 2016. Chest x-ray shows mild cardiomegaly, very mild interstitial edema, overall similar to her recent admission. CT head showed age-related changes but no acute abnormality. She has a normal mental status and normal neurological exam at this time. Her blood pressure here has been running on the low side but she has not really been hypotensive. On oxygen, her oxygen saturations are in the 90s on 3 L nasal cannula. She doesn't appear to be volume overloaded. In fact I think that she is a bit dry. Her mucous membranes look a little dry. Her creatinine is also mildly elevated at 1.9 compared to a baseline of 1-1.6. She is also mildly hyponatremic with a sodium of 129. I think she would benefit from reducing her diuretics. Still awaiting UA. 01/07/17 16:38 Review of her records from her recent admission indicate that furosemide was started during her recent admission. She was not previously on diuretics. Her current dose is 40 mg daily. I believe her current complaints of low blood pressure, mildly elevated creatinine, and hyponatremia may be due to overdiuresis and overaggressive salt restriction. I advised patient to hold her diuretic tomorrow and to restart the following day the lower dose of 10 mg daily. I will defer further management of this to her primary care physician, who I encouraged her to follow-up with this week ideally within a couple of days, for repeat labs and further adjustment of her diuretic as needed. Discussed return precautions for any worsening symptoms, patient and understood. Departure - Departure Time of Disposition: 16:40 Disposition: Home, Self-Care 01 Clinical Impression: Renal insufficiency, Hyponatremia, Dehydration, mild Altered mental status Qualifiers: Altered mental status type: unspecified Qualified Code(s): R41.82 - Altered mental status, unspecified - Discharge Information Referrals: Germain Schaeffer MD [Primary Care Provider] - Forms: ED Department Discharge Additional Instructions: 1. Do not take your furosemide tomorrow 2. Restart furosemide this week at lower dose of 10 mg daily as prescribed unless your primary doctor recommends a different dose 3. Follow-up with your primary care doctor as soon as possible, ideally in one to 2 days, for further medication adjustments and to also recheck your kidney function and your sodium 4. Your kidney function and sodium need to be rechecked sometime later this week 5. Return to the emergency department for any new or worsening symptoms, especially confusion, difficulty breathing, chest pain, fever, or any other concern - My Orders Last 24 Hours: My Active Orders 01/07/17 14:20 EKG 12 Lead [EKG Documentation Completion] [RC] STAT Chest 1V Frontal [CR] Stat Blood Culture x2 Reflex Set [OM.PC] Stat 01/07/17 14:21 Oxygen Therapy Adult [Oxygen Therapy] [RC] ASDIRECTED Peripheral IV Care [RC] . DIRECTED Peripheral IV Care [RC] . DIRECTED Sodium Chloride 0.9% [Saline Flush] 10 ml FLUSH ASDIRECTED PRN Peripheral IV Insertion Adult [OM.PC] Routine 01/07/17 14:55 CULTURE BLOOD [BC] Stat 01/07/17 15:10 CULTURE BLOOD [BC] Stat - Assessment/Plan Last 24 Hours: My Active Orders 01/07/17 14:20 EKG 12 Lead [EKG Documentation Completion] [RC] STAT Chest 1V Frontal [CR] Stat Blood Culture x2 Reflex Set [OM.PC] Stat 01/07/17 14:21 Oxygen Therapy Adult [Oxygen Therapy] [RC] ASDIRECTED Peripheral IV Care [RC] . DIRECTED Peripheral IV Care [RC] . DIRECTED Sodium Chloride 0.9% [Saline Flush] 10 ml FLUSH ASDIRECTED PRN Peripheral IV Insertion Adult [OM.PC] Routine 01/07/17 14:55 CULTURE BLOOD [BC] Stat 01/07/17 15:10 CULTURE BLOOD [BC] Stat
--- NOTE | 2017-01-07 15:42 | CT ---
Head CT Technique: Multiple axial sections through the brain were obtained. Intravenous contrast was not utilized. Comparison: Previous head CT exam of 04/14/16 is available. Findings: Ventricles along with basal cisterns and sulci over the convexities are mildly prominent. Very mild diminished density is noted within the periventricular and subcortical white matter compatible with small vessel ischemic demyelination change. Several old appearing lacunar infarcts are felt to be present within the basal ganglia. No other abnormal parenchymal densities are seen. No evidence of intracranial hemorrhage. No midline shift or mass effect is seen. Bone window settings were reviewed which shows no discrete calvarial abnormality. Visualized sinuses are clear. Impression: 1. Senescent change as noted above. Findings are fairly stable from prior exam. 2. Nothing acute is identified on noncontrast head CT study. Diagnostic code #2
[2017-01-07 17:09] VITALS: BP 108/56
--- NOTE | 2017-01-08 12:13 | CR ---
Chest: Portable view of the chest was obtained. Comparison: Previous chest x-ray of 01/02/17. Heart is enlarged. Tortuous thoracic aorta is seen. Lung markings are increased which appear to be chronic. Mild linear scarring seen within the left midlung. Mild thickening of the right minor fissure is seen. Bony structures show degenerative change within both shoulders and within the spine. Bony structures are also osteopenic. Surgical clips are seen within the upper right abdomen. Impression: 1. Multiple findings as noted above. Nothing acute is identified. Diagnostic code #2
== END 2017-01-07 17:08 | disposition home or self-care (01) ==
LOC: JD.ED 13:51
DX: E87.1 Hypo-osmolality and hyponatremia (principal); E86.0 Dehydration; N28.9 Disorder of kidney and ureter, unspecified; R41.82 Altered mental status, unspecified; E78.00 Pure hypercholesterolemia, unspecified; I10 Essential (primary) hypertension; K21.9 Gastro-esophageal reflux disease without esophagitis; M19.90 Unspecified osteoarthritis, unspecified site; E11.9 Type 2 diabetes mellitus without complications; E03.9 Hypothyroidism, unspecified; Z88.1 Allergy status to other antibiotic agents; Z88.2 Allergy status to sulfonamides; Z79.82 Long term (current) use of aspirin; Z79.84 Long term (current) use of oral hypoglycemic drugs; Z79.899 Other long term (current) drug therapy; Z98.890 Other specified postprocedural states
CPT/HCPCS: 36415; 70450; 71010; 80053; 81001; 83605; 83880; 84484; 85025; 87040; 93005; 99285; P9612; 94762; 99284

== ENCOUNTER 2017-01-09 15:20 | Inpatient (IN) | payer MEDICARE, BC ==
[2017-01-09] MEDS ORDERED: Sodium Chloride 0.9% 500 ML IV ONE (15:54)
--- NOTE | 2017-01-09 16:08 | CT ---
Head CT Technique: Multiple axial sections through the brain were obtained. Intravenous contrast was not utilized. Comparison: Previous head CT exam of 01/07/17. Findings: Soft tissue prominence is seen posterior to the dens most likely due to thickening of the transverse ligament as an incidental note. Ventricles along with basal cisterns and sulci over convexities are moderately prominent. Minimal areas of diminished density is noted within the periventricular white matter compatible with slight small vessel ischemic demyelination change. Several old lacunar infarcts are noted within the basal ganglia. No other abnormal parenchymal densities are seen. No evidence of intracranial hemorrhage. No midline shift or mass effect is seen. Bone window settings were reviewed which shows the visualized sinuses to appear clear. No acute calvarial abnormality is seen. Impression: 1. Incidental findings. Senescent change as described above which appears similar to prior head CT. No significant change is identified from prior head CT. Diagnostic code #2
--- NOTE | 2017-01-09 16:24 | EDM.PDOC ---
ED HPI GENERAL MEDICAL PROBLEM - General Chief Complaint: Neuro Symptoms/Deficits Stated Complaint: [facility] Time Seen by Provider: 01/09/17 15:32 Source of Information: Reports: Patient, EMS, [facility] Records History Limitations: Reports: Altered Mental Status - History of Present Illness INITIAL COMMENTS - FREE TEXT/NARRATIVE: The patient is an 81-year-old female with a complex past medical history including CHF, hypertension, recent admission for CHF exacerbation, long-term resident, who presents today with episode of altered mental status and difficulty speaking. The patient was seen here 2 days ago. At that time she had soft blood pressures mild renal insufficiency not to be due to over diuresis. Her neuro exam at that time was normal. Her diuretic was held, she was given some fluids, and discharged back to the long-term. She saw her primary doctor yesterday. Today, according to her nurse, she was fine this morning. Last known well was 10 AM. Then she slept and staff had a very difficult time arousing her from sleep. When she did wake up, she had jumbled speech and seemed very confused and had low blood pressure so an ambulance was dispatched. EMS report that her oxygen saturation were in the 80s and she was very confused and had a right facial droop. Upon arrival, Carlota seemed confused and was not able to speak supposed unable to obtain any further history. - Related Data Allergies Allergy/AdvReac Type Severity Reaction Status Date / Time amoxicillin AdvReac Nausea and Verified 01/09/17 15:35 Vomiting amoxicillin trihydrate AdvReac Nausea and Verified 12/25/16 14:47 [From Augmentin] Vomiting ciprofloxacin AdvReac Nausea and Verified 12/25/16 14:47 Vomiting potassium clavulanate AdvReac Nausea and Verified 12/25/16 14:47 [From Augmentin] Vomiting Sulfa (Sulfonamide AdvReac Nausea and Verified 12/25/16 14:47 Antibiotics) Vomiting Home Meds: Home Meds Docusate Sodium [Colace] 200 mg PO BID 09/12/14 [History] Gabapentin 600 mg PO BID 09/12/14 [History] Metoprolol Succinate [Toprol XL] 25 mg PO DAILY 09/12/14 [History] Polyethylene Glycol 3350 [MiraLAX] 17 gm PO BID PRN 02/18/15 [History] traMADol [Ultram] 50 mg PO Q6H PRN 04/29/15 [History] Cholecalciferol (Vitamin D3) [Vitamin D3] 1,000 unit PO DAILY 08/10/15 [History] Simvastatin 20 mg PO BEDTIME 08/10/15 [History] Valsartan [Diovan] 320 mg PO DAILY 08/10/15 [History] Vit C/Vit E Ac/Lut/Mineral 1 [Prosight with Lutein] 1 each PO DAILY 08/10/15 [ History] amLODIPine Besylate [Amlodipine Besylate] 10 mg PO DAILY 08/10/15 [History] traZODone 100 mg PO BEDTIME 08/10/15 [History] Aspirin 81 mg PO DAILY 10/19/15 [History] Levothyroxine [Synthroid] 50 mcg PO DAILY 10/19/15 [History] Dicyclomine HCl [Bentyl] 20 mg PO Q6HR 10/20/15 [History] Albuterol/Ipratropium [DuoNeb 3.0-0.5 MG/3 ML] 3 ml NEB QIDRT #1 box 01/03/17 [ Rx] Fluconazole [Diflucan] 100 mg PO DAILY #5 tablet 01/03/17 [Rx] metFORMIN [Glucophage] 500 mg PO BIDMEALS #60 tablet 01/03/17 [Rx] Furosemide [Lasix] 20 mg PO DAILY 01/09/17 [History] Omeprazole 40 mg PO DAILY 01/09/17 [History] Sucralfate [Carafate] 1 gm PO QIDACANDBED 01/09/17 [History] Past Medical History HEENT History: Reports: None Cardiovascular History: Reports: High Cholesterol, Hypertension Respiratory History: Reports: PE Gastrointestinal History: Reports: Chronic Constipation, Diverticulosis, GERD, Hemorrhoids, Irritable Bowel Syndrome Other Gastrointestinal History: gastric ulcer, abdominal pain, lapartomy Other Genitourinary History: cystitis 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: Musculoskeletal History: Reports: Osteoarthritis Psychiatric History: Reports: Depression Endocrine/Metabolic History: Reports: Diabetes, Type II, Hypothyroidism, Obesity /BMI 30+ Hematologic History: Reports: Anemia Dermatologic History: Reports: Seborrheic Dermatitis - Infectious Disease History Infectious Disease History: Reports: Rheumatic Fever - Past Surgical History HEENT Surgical History: Reports: Tonsillectomy Other Musculoskeletal Surgeries/Procedures:: osteoarthritis to L knee, R knee pain, R knee arthroscopy, R total knee, L total knee, hip surgery Social & Family History - Family History Cardiac: Reports: [place] Other Cardiac Family History: Mother OBGYN: Reports: Endocrine/Metabolic: Reports: Diabetes, type II Oncologic: Reports: Colon - Tobacco Use Smoking Status *Q: Never Smoker Second Hand Smoke Exposure: No - Caffeine Use Caffeine Use: Reports: Coffee, Tea Other Caffeine Use: coffee in the morning - Alcohol Use Days Per Week of Alcohol Use: 0 Number of Drinks Per Day: 0 Total Drinks Per Week: 0 - Recreational Drug Use Recreational Drug Use: No Drug Use in Last 12 Months: No ED ROS GENERAL - Review of Systems Review Of Systems: Unable To Obtain (due to aphasia) ED EXAM, NEURO - Physical Exam Exam: See Below Exam Limited By: Altered Mental Status General Appearance: Alert, WD/WN, No Apparent Distress Eye Exam: Bilateral Eye: PERRL Ears: Normal External Exam Nose: Normal Inspection Throat/Mouth: Normal Inspection, Normal Voice, No Airway Compromise Head Exam: Atraumatic, Normocephalic Neck: Normal Inspection, Supple, Non-Tender, Full Range of Motion Respiratory/Chest: No Respiratory Distress, Lungs Clear, Normal Breath Sounds, No Accessory Muscle Use Cardiovascular: Normal Peripheral Pulses, Regular Rate, Rhythm GI/Abdominal: Soft, Non-Tender, No Distention Neurological: Alert, Other (awake, slurred/nonsensical speech, doesn't follow commands, slight R facial droop, moves all extremities but doesn't cooperate with exam. appears to have both receptive and expressive aphasia at this time.) Back Exam: Normal Inspection Extremities: Normal Inspection Psychiatric: Normal Affect, Normal Mood Skin Exam: Warm, Dry, Intact, Normal Color, No Rash Course - Vital Signs Last Recorded V/S: Last Vital Signs Temp 36.1 C 01/09/17 15:44 Pulse 69 01/09/17 15:44 Resp 18 01/09/17 15:44 BP 123/108 H 01/09/17 15:44 Pulse Ox 96 01/09/17 15:44 - Orders/Labs/Meds Orders: Active Orders 24 hr Category Date Time Status EKG 12 Lead [EKG Documentation Completion] [RC] STAT Care 01/09/17 15:32 Active Chest 1V Frontal [CR] Stat Exams 01/09/17 15:32 Taken CULTURE URINE [RM] Stat Lab 01/09/17 16:46 Uncollected cefTRIAXone [Rocephin] Med 01/09/17 17:00 Ordered 1,000 mg IVPUSH Q24H Labs: Laboratory Tests 01/09/17 01/09/17 01/09/17 Range/Units 15:45 15:45 16:08 WBC 8.91 (3.98-10.04) K/mm3 RBC 3.83 L (3.98-5.22) M/mm3 Hgb 11.0 L (11.2-15.7) gm/L Hct 35.2 (34.1-44.9) % MCV 91.9 (79.4-94.8) fl MCH 28.7 (25.6-32.2) pg MCHC 31.3 L (32.2-35.5) g/dl RDW Std Deviation 49.3 H (36.4-46.3) fL Plt Count 207 (182-369) K/mm3 MPV 10.8 (9.4-12.3) fl Neut % (Auto) 80.4 H (34.0-71.1) % Lymph % (Auto) 11.7 L (19.3-51.7) % [place] % (Auto) 7.0 (4.7-12.5) % Eos % (Auto) 0.7 (0.7-5.8) Baso % (Auto) 0.1 (0.1-1.2) % Neut # (Auto) 7.17 H (1.56-6.13) K/mm3 Lymph # (Auto) 1.04 L (1.18-3.74) K/mm3 [place] # (Auto) 0.62 H (0.24-0.36) K/mm3 Eos # (Auto) 0.06 (0.04-0.36) K/mm3 Baso # (Auto) 0.01 (0.01-0.08) K/mm3 Sodium 127 L (136-145) mEq/L Potassium 4.6 (3.5-5.1) mEq/L Chloride 88 L (98-107) mEq/L Carbon Dioxide 32 (21-32) mEq/L Anion Gap 11.6 (5-15) BUN 28 H (7-18) mg/dL Creatinine 2.3 H (0.55-1.02) mg/dL Est Cr Clr Drug Dosing 13.31 mL/min Estimated GFR (MDRD) 20 (>60) mL/min BUN/Creatinine Ratio 12.2 L (14-18) Glucose 114 (83-115) mg/dL Calcium 9.1 (8.5-10.1) mg/dL Total Bilirubin 0.4 (0.2-1.0) mg/dL AST 14 L (15-37) U/L ALT 18 (14-59) U/L Alkaline Phosphatase 63 (46-116) U/L Troponin I < 0.017 (0.00-0.056) ng/mL Total Protein 6.6 (6.4-8.2) g/dl Albumin 3.5 (3.4-5.0) g/dl Globulin 3.1 gm/dL Albumin/Globulin Ratio 1.1 (1-2) Urine Color Yellow (Yellow) Urine Appearance Slt cloudy H (Clear) Urine pH 6.0 (5.0-8.0) Ur Specific [place] 1.015 (1.005-1.030) Urine Protein 1+ H (Negative) Urine Glucose (UA) Negative (Negative) Urine Ketones Negative (Negative) Urine Occult Blood Trace-intact H (Negative) Urine Nitrite Negative (Negative) Urine Bilirubin Negative (Negative) Urine Urobilinogen 0.2 (0.2-1.0) Ur Leukocyte Esterase 3+ H (Negative) Urine RBC 5-10 H (0-5) /hpf Urine WBC >100 H (0-5) /hpf Ur Epithelial Cells 0-5 (0-5) /hpf Urine Bacteria Moderate H (FEW) /hpf Urine Mucus Few (FEW) /hpf Meds: Medications Discontinued Medications Generic Name Dose Route Start Last Admin Trade Name Freq PRN Reason Stop Dose Admin Sodium Chloride 500 mls @ 999 mls/hr 01/09/17 15:54 01/09/17 15:57 Normal Saline IV 01/09/17 16:24 999 mls/hr .BOLUS ONE Administration - Re-Assessments/Exams Free Text/Narrative Re-Assessment/Exam: 01/09/17 16:22 EKG shows normal sinus rhythm, no evidence of acute ischemia or arrhythmia. CT scan of the head shows no significant change compared to prior head CT, no acute abnormality. Several old lacunar infarcts are present within the basal ganglia. No evidence of hemorrhage. Upon reevaluation, the patient is now able to speak more. She does seem to understand and is following commands. She is able to say some simple words but still has somewhat slurred speech and some difficulty expressing herself. Overall though her neuro exam is improved compared to arrival. 01/09/17 16:50 Urine positive. Culture ordered. Ceftriaxone ordered. Discussed with Dr. Rainey who agrees to admit the patient for further workup. Departure - Departure Time of Disposition: 16:50 Disposition: Admitted As Inpatient 64 Clinical Impression: Hyponatremia Altered mental status Qualifiers: Altered mental status type: disorientation Qualified Code(s): R41.0 - Disorientation, unspecified Transient ischemic attack Qualifiers: Transient cerebral ischemia type: unspecified Qualified Code(s): G45.9 - Transient cerebral ischemic attack, unspecified Acute renal failure Qualifiers: Acute renal failure type: unspecified Qualified Code(s): N17.9 - Acute kidney failure, unspecified Urinary tract infection Qualifiers: Urinary tract infection type: acute cystitis Hematuria presence: without hematuria Qualified Code(s): N30.00 - Acute cystitis without hematuria Hypotension Qualifiers: Hypotension type: unspecified hypotension type Qualified Code(s): I95.9 - Hypotension, unspecified - Discharge Information Forms: ED Department Discharge - My Orders Last 24 Hours: My Active Orders 01/09/17 15:32 EKG 12 Lead [EKG Documentation Completion] [RC] STAT Chest 1V Frontal [CR] Stat 01/09/17 16:46 CULTURE URINE [RM] Stat 01/09/17 17:00 cefTRIAXone [Rocephin] 1,000 mg IVPUSH Q24H - Assessment/Plan Last 24 Hours: My Active Orders 01/09/17 15:32 EKG 12 Lead [EKG Documentation Completion] [RC] STAT Chest 1V Frontal [CR] Stat 01/09/17 16:46 CULTURE URINE [RM] Stat 01/09/17 17:00 cefTRIAXone [Rocephin] 1,000 mg IVPUSH Q24H
[2017-01-09] MEDS ORDERED: cefTRIAXone 1 GM in Sodium Chloride 0.9% 100 ML IV ONE (16:56)
[2017-01-09] MEDS ORDERED: cefTRIAXone 1,000 MG VIAL IVPUSH SCH (17:00)
--- NOTE | 2017-01-09 17:24 | PCM.HP ---
H&P History of Present Illness - General Date of Service: 01/09/17 Admit Problem/Dx: TIA and UTI Source of Information: Patient, Family, Old Records, Provider, RN Notes Reviewed , Significant Other History Limitations: Reports: No Limitations - History of Present Illness Initial Comments - Free Text/Narative: This is an 81-year-old morbidly obese white female with past medical history of congestive heart failure with preserved ejection fraction of 65-70%, hypertension, hyperlipidemia, chronic abdominal pain, type 2 diabetes, iron deficiency anemia, DJD/OA, abdominal pain, chronic constipation, history of dysphagia, iron deficiency anemia, history of pulmonary embolism, history of IBS , and history of rheumatic fever, who comes in to the emergency department with complaints of altered mental status and difficulty speaking. Per family, her last known well was about 10:00 this morning. She then went to bed and later on, staff had difficulty waking her up from sleep. When patient woke up, her speech was non-sensible, appeared very confused and noted to have low blood pressure. Patient was also noted to have low oxygen level as reported by the EMS transport system. Her history of present illness was poor due to lethargy at the time of my examination. Secondary sources were obtained from family members who were present at bedside and from ED notes. Her initial workup in the emergency department reveals a CBC remarkable for hemoglobin of 11 and neutrophil counts of 7.17. Her chemistry is significant for sodium of 127, chloride of 88, BUN of 28, creatinine of 2.3, and AST of 14. Her UA is suggestive of urinary tract infection. Her EKG shows normal sinus rhythm with no acute ST-T wave changes or arrhythmia. Her Head CT scan shows no acute changes from prior exam. However noted for several old lacunar infarcts within the basal ganglia. Her chest x-ray reveals no acute abnormal findings. Patient is being admitted for altered mental status and medical management of TIA and urinary tract infection. She is full code. - Related Data Allergies/Adverse Reactions: Allergies Allergy/AdvReac Type Severity Reaction Status Date / Time amoxicillin AdvReac Nausea and Verified 01/09/17 15:35 Vomiting amoxicillin trihydrate AdvReac Nausea and Verified 12/25/16 14:47 [From Augmentin] Vomiting ciprofloxacin AdvReac Nausea and Verified 12/25/16 14:47 Vomiting potassium clavulanate AdvReac Nausea and Verified 12/25/16 14:47 [From Augmentin] Vomiting Sulfa (Sulfonamide AdvReac Nausea and Verified 12/25/16 14:47 Antibiotics) Vomiting Home Medications: Home Meds Docusate Sodium [Colace] 200 mg PO BID 09/12/14 [History] Gabapentin 600 mg PO BID 09/12/14 [History] Metoprolol Succinate [Toprol XL] 25 mg PO DAILY 09/12/14 [History] Polyethylene Glycol 3350 [MiraLAX] 17 gm PO BID PRN 02/18/15 [History] traMADol [Ultram] 50 mg PO Q6H PRN 04/29/15 [History] Cholecalciferol (Vitamin D3) [Vitamin D3] 1,000 unit PO DAILY 08/10/15 [History] Simvastatin 20 mg PO BEDTIME 08/10/15 [History] Valsartan [Diovan] 320 mg PO DAILY 08/10/15 [History] Vit C/Vit E Ac/Lut/Mineral 1 [Prosight with Lutein] 1 tab PO DAILY 08/10/15 [ History] amLODIPine Besylate [Amlodipine Besylate] 10 mg PO DAILY 08/10/15 [History] traZODone 100 mg PO BEDTIME 08/10/15 [History] Aspirin 81 mg PO DAILY 10/19/15 [History] Levothyroxine [Synthroid] 50 mcg PO DAILY 10/19/15 [History] Dicyclomine HCl [Bentyl] 20 mg PO Q6HR 10/20/15 [History] Albuterol/Ipratropium [DuoNeb 3.0-0.5 MG/3 ML] 3 ml NEB QIDRT #1 box 01/03/17 [ Rx] metFORMIN [Glucophage] 500 mg PO BIDMEALS #60 tablet 01/03/17 [Rx] Aloe [place] Antifungal 2% Ointment 1 applic TOP BID 01/09/17 [History] Docusate Sodium/Sennosides [Senna Plus] 1 tab PO BID PRN 01/09/17 [History] Estradiol [Vagifem] 10 mcg VG DAILY PRN 01/09/17 [History] Furosemide [Lasix] 10 mg PO DAILY 01/09/17 [History] Omeprazole 40 mg PO DAILY 01/09/17 [History] Sucralfate [Carafate] 1 gm PO QIDACANDBED 01/09/17 [History] Past Medical History HEENT History: Reports: None Cardiovascular History: Reports: High Cholesterol, Hypertension Respiratory History: Reports: PE Gastrointestinal History: Reports: Chronic Constipation, Diverticulosis, GERD, Hemorrhoids, Irritable Bowel Syndrome Other Gastrointestinal History: gastric ulcer, abdominal pain, lapartomy Other Genitourinary History: 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: Musculoskeletal History: Reports: Osteoarthritis Psychiatric History: Reports: Depression Endocrine/Metabolic History: Reports: Diabetes, Type II, Hypothyroidism, Obesity /BMI 30+ Hematologic History: Reports: Anemia Dermatologic History: Reports: Seborrheic Dermatitis - Infectious Disease History Infectious Disease History: Reports: Rheumatic Fever - Past Surgical History HEENT Surgical History: Reports: Tonsillectomy Other Musculoskeletal Surgeries/Procedures:: osteoarthritis to L knee, R knee pain, R knee arthroscopy, R total knee, L total knee, hip surgery Social & Family History - Family History Cardiac: Reports: [place] Other Cardiac Family History: Mother OBGYN: Reports: Endocrine/Metabolic: Reports: Diabetes, type II Oncologic: Reports: Colon - Tobacco Use Smoking Status *Q: Never Smoker Second Hand Smoke Exposure: No - Caffeine Use Caffeine Use: Reports: Coffee, Tea Other Caffeine Use: coffee in the morning - Alcohol Use Days Per Week of Alcohol Use: 0 Number of Drinks Per Day: 0 Total Drinks Per Week: 0 - Recreational Drug Use Recreational Drug Use: No Drug Use in Last 12 Months: No H&P Review of Systems - Review of Systems: Review Of Systems: See Below General: Reports: Weakness, Fatigue. Denies: Fever, Chills, Malaise HEENT: Denies: No Symptoms Pulmonary: Denies: Shortness of Breath Cardiovascular: Denies: Chest Pain, Palpitations, Dyspnea on Exertion Gastrointestinal: Denies: Abdominal Pain, Nausea, Vomiting Genitourinary: Reports: No Symptoms Musculoskeletal: Reports: No Symptoms Skin: Reports: No Symptoms Psychiatric: Reports: Confusion. Denies: Depression, Anxiety, Hallucinations, Suicidal Ideation Neurological: Reports: Trouble Speaking, Difficulty Walking, Weakness, Change in Speech, Gait Disturbance. Denies: Seizure Immunologic: Reports: No Symptoms Exam - Exam Exam: See Below - Vital Signs Vital Signs: Last Vital Signs Temp 36.1 C 01/09/17 15:44 Pulse 69 01/09/17 15:44 Resp 18 01/09/17 15:44 BP 123/108 H 01/09/17 15:44 Pulse Ox 96 01/09/17 15:44 Weight: 97.069 kg - Exam Quality Assessment: Supplemental Oxygen General: Alert, Cooperative, Mild Distress, Other (Morbidly Obese) HEENT: Conjunctiva Clear, Hearing Intact, Mucosa Moist & [place], Nares Patent, Posterior Pharynx Clear, Pupils Equal Neck: Supple, Trachea Midline, +2 Carotid Pulse wo Bruit, Other (short and thick ) Lungs: Normal Respiratory Effort, Decreased Breath Sounds Cardiovascular: Regular Rate, Regular Rhythm Abdomen: Normal Bowel Sounds, Soft, Other (Obese). No: Organomegaly, Tenderness (Female) Exam: Other (indwelling szymanski catheter) Rectal (Female) Exam: Deferred Back Exam: Normal Inspection, Decreased Range of Motion Extremities: Normal Inspection, Normal Pulses. No: Clubbing, Cyanosis, Calf Tenderness Peripheral Pulses: 2+: Posterior Tibial (L), Posterior Tibial (R), Dorsalis Pedis (L), Dorsalis Pedis (R) Skin: Warm, Dry, Intact Neuro Extensive - Mental Status: Slow Response to Commands, Other (lethargy) Neuro Extensive - Motor, Sensory, Reflexes: CN II-XII Intact (limited due to somnolence/lethargy. Patient does not cooperate much.), Abnormal Gait, Other ( slight facial droop, speech is somewhat better now. She is now able to move all extremities) Psychiatric: Normal Affect, Normal Mood - Patient Data Lab Results Last 24 hrs: Laboratory Results - last 24 hr 01/09/17 01/09/17 01/09/17 Range/Units 15:45 15:45 16:08 WBC 8.91 (3.98-10.04) K/mm3 RBC 3.83 L (3.98-5.22) M/mm3 Hgb 11.0 L (11.2-15.7) gm/L Hct 35.2 (34.1-44.9) % MCV 91.9 (79.4-94.8) fl MCH 28.7 (25.6-32.2) pg MCHC 31.3 L (32.2-35.5) g/dl RDW Std Deviation 49.3 H (36.4-46.3) fL Plt Count 207 (182-369) K/mm3 MPV 10.8 (9.4-12.3) fl Neut % (Auto) 80.4 H (34.0-71.1) % Lymph % (Auto) 11.7 L (19.3-51.7) % [place] % (Auto) 7.0 (4.7-12.5) % Eos % (Auto) 0.7 (0.7-5.8) Baso % (Auto) 0.1 (0.1-1.2) % Neut # (Auto) 7.17 H (1.56-6.13) K/mm3 Lymph # (Auto) 1.04 L (1.18-3.74) K/mm3 [place] # (Auto) 0.62 H (0.24-0.36) K/mm3 Eos # (Auto) 0.06 (0.04-0.36) K/mm3 Baso # (Auto) 0.01 (0.01-0.08) K/mm3 Sodium 127 L (136-145) mEq/L Potassium 4.6 (3.5-5.1) mEq/L Chloride 88 L (98-107) mEq/L Carbon Dioxide 32 (21-32) mEq/L Anion Gap 11.6 (5-15) BUN 28 H (7-18) mg/dL Creatinine 2.3 H (0.55-1.02) mg/dL Est Cr Clr Drug Dosing 13.31 mL/min Estimated GFR (MDRD) 20 (>60) mL/min BUN/Creatinine Ratio 12.2 L (14-18) Glucose 114 (83-115) mg/dL Calcium 9.1 (8.5-10.1) mg/dL Total Bilirubin 0.4 (0.2-1.0) mg/dL AST 14 L (15-37) U/L ALT 18 (14-59) U/L Alkaline Phosphatase 63 (46-116) U/L Troponin I < 0.017 (0.00-0.056) ng/mL Total Protein 6.6 (6.4-8.2) g/dl Albumin 3.5 (3.4-5.0) g/dl Globulin 3.1 gm/dL Albumin/Globulin Ratio 1.1 (1-2) Urine Color Yellow (Yellow) Urine Appearance Slt cloudy H (Clear) Urine pH 6.0 (5.0-8.0) Ur Specific [place] 1.015 (1.005-1.030) Urine Protein 1+ H (Negative) Urine Glucose (UA) Negative (Negative) Urine Ketones Negative (Negative) Urine Occult Blood Trace-intact H (Negative) Urine Nitrite Negative (Negative) Urine Bilirubin Negative (Negative) Urine Urobilinogen 0.2 (0.2-1.0) Ur Leukocyte Esterase 3+ H (Negative) Urine RBC 5-10 H (0-5) /hpf Urine WBC >100 H (0-5) /hpf Ur Epithelial Cells 0-5 (0-5) /hpf Urine Bacteria Moderate H (FEW) /hpf Urine Mucus Few (FEW) /hpf Result Diagrams: 01/10/17 05:26 01/10/17 05:26 *Q Meaningful Use (ADM) - VTE *Q VTE Criteria *Q: - Stroke *Q Stroke Criteria *Q: - AMI *Q AMI Criteria *Q: Problem List Initiated/Reviewed/Updated: Yes Orders Last 24hrs: Active Orders 24 hr Category Date Time Status EKG 12 Lead [EKG Documentation Completion] [RC] STAT Care 01/09/17 15:32 Active Chest 1V Frontal [CR] Stat Exams 01/09/17 15:32 Taken CULTURE URINE [RM] Stat Lab 01/09/17 16:55 Ordered cefTRIAXone [Rocephin] 1 gm Med 01/09/17 16:56 Active Sodium Chloride 0.9% [Normal Saline] 100 ml IV ONETIME Medication Orders Ceftriaxone Sodium 1 gm/ (Sodium Chloride) 100 mls @ 200 mls/hr IV ONETIME ONE Stop: 01/09/17 17:25 Last Admin: 01/09/17 17:02 Dose: 200 mls/hr Assessment/Plan Comment:: Assessment/Plan: Acute: AMS - Likely 2/2 toxic, metabolic encephalopathy vs TIA - Risk Factors: UTI, Electrolyte Abnormality and Meds: Gabapentin, Ultram and Trazodone - Supportive Care - Continue szymanski catheter TIA - Has risk factors for it: Hx/o Malignant HTN, Several Old Lacunar Infarcts, DM2, and HLD - Has facial droop, non-sensible and confused - Offered Brain MRI and Head/Neck MRA to family but deferred since her symptoms are resolving - 2D echo 12/25/16: LVEF 65-70%. No regional wall motion abnormalities. Moderate restrictive left ventricular hypertrophy, severely dilated left atrium , moderate aortic valve stenosis, mild to moderate mitral valve regurgitation , moderate mitral stenosis and severe mitral annular calcification - AGRIBUSINESS PROFESSOR for swallow eval if not available may do nursing bedside swallow eval - Increased 81 mg po ASA to 162 mg po daily MARCO A on CKD Stage 3 - Cr 2.3 and GFR 20 - Likely from over diuresis and UTI - Family suspected she is getting too much lasix - Gentle hydration - Continue to monitor Acute on Chronic UTI - UA impressive for UTI - Risk Factors: Hx/o Interstitial Cystitis, Urinary Frequency, Incontinence, Restricted Mobility and Chronic Under Pad Use - Received IV Rocephin in ED - Continue IV Abx - UA Cx/Sx Hyponatremia - Na is 127 - Likely from over diurese - Currently on gentle hydration - Seizure precaution - Will monitor HTN - Not well controlled - BP on admission was 123/108 mmHg - Consider PRN clonidine for better control High Fall Risk Chronic: HLD Constipation DM2 GERD Hx/o Dysphagia and PUD HF with Preserved EF 65-70% Cardiac Valvular Dysfunction OA/DJD Hypothyroidism SUSIE Seborrheic Dermatitis Depression Nocturnal Hypoxia on 2.5 L NC at night Diverticulosis Hx/o PE, IBS Interstitial Cystitis and Rheumatic Fever Obesity with BMI 48 Probable KELLEE Plan: Admit to Med-Surge with Telemetry Routine AM Labs Resume Home Meds except diuretic and trazodone IVF for gentle hydration NPO until AGRIBUSINESS PROFESSOR or nursing evaluation Ativan IVP PRN for abortive Seizure AGRIBUSINESS PROFESSOR eval if not avail nursing swallow evaluation PT/OT consult Aspiration/Fall/Seizure Precautions SW/CM for d/c planning Code status: 1 Family not happy with [facility]. They would like to know if patient can be moved to [facility] on discharge. Family was advised, SW will visit with them to discuss further options.
[2017-01-09] MEDS ORDERED: Bisacodyl 5 MG Tab PO PRN (17:25)
[2017-01-09] MEDS ORDERED: Promethazine 12.5 MG in Sodium Chloride 0.9% 50 ML IV PRN (17:25)
[2017-01-09] MEDS ORDERED: Temazepam 7.5 MG Cap PO PRN (17:25)
[2017-01-09] MEDS ORDERED: Acetaminophen/HYDROcodone 325-5 MG Tab PO PRN (17:25)
[2017-01-09] MEDS ORDERED: LORazepam 2 MG/ML MDV IV PRN (17:25)
[2017-01-09] MEDS ORDERED: Docusate Sodium 100 MG Cap PO PRN (17:25)
[2017-01-09] MEDS ORDERED: Albuterol/Ipratropium 3.0-0.5 MG/3 ML Neb Soln NEB PRN (17:25)
[2017-01-09] MEDS ORDERED: HYDROmorphone 0.5 MG/0.5 ML Syringe IVPUSH PRN (17:25)
[2017-01-09] MEDS ORDERED: Polyethylene Glycol 3350 Powder 17 GM Packet PO PRN (17:32)
[2017-01-09] MEDS ORDERED: traMADol 50 MG Tab PO PRN (17:32)
[2017-01-09] MEDS ORDERED: Thiamine 200 MG/2 ML MDV IV ONE ×2 (17:38→21:00)
[2017-01-09] MEDS ORDERED: Dextrose 5%-0.45% NaCl 1,000 ML IV SCH (17:45)
[2017-01-09] MEDS ORDERED: Metoprolol Tartrate 5 MG/5 ML SDV IVPUSH PRN (18:01)
[2017-01-09] MEDS: Heparin Sodium 5,000 Units/ML Vial SUBCUT SCH (18:54)
[2017-01-09] MEDS: Dicyclomine 10 MG Cap PO SCH (19:12)
[2017-01-09] MEDS: Albuterol/Ipratropium 3.0-0.5 MG/3 ML Neb Soln NEB SCH (20:46)
[2017-01-09] MEDS ORDERED: Estradiol [Vagifem] 10 MCG VAG PRN (21:16)
[2017-01-09] MEDS ORDERED: LORazepam 2 MG/ML MDV IVPUSH PRN (21:24)
[2017-01-09] MEDS ORDERED: Sodium Chloride 0.9% 100 ML ONE (21:38)
[2017-01-09] MEDS ORDERED: Thiamine 200 MG in Sodium Chloride 0.9% 100 ML IV ONE (21:45)
[2017-01-09] MEDS: Docusate Sodium 100 MG Cap PO SCH (21:51)
[2017-01-09] MEDS: Sucralfate Suspension 1 GM/10 ML Cup PO SCH (21:51)
[2017-01-09] MEDS: Simvastatin 20 MG Tab PO SCH (21:51)
[2017-01-10] MEDS: Dicyclomine 10 MG Cap PO SCH ×2 (01:19→06:19)
[2017-01-10] MEDS: Heparin Sodium 5,000 Units/ML Vial SUBCUT SCH ×4 (01:19→17:23)
[2017-01-10] MEDS: Albuterol/Ipratropium 3.0-0.5 MG/3 ML Neb Soln NEB SCH ×4 (06:05→20:39)
[2017-01-10] MEDS: Pantoprazole 40 MG Tab.CR PO SCH (06:19)
[2017-01-10] MEDS: Sucralfate Suspension 1 GM/10 ML Cup PO SCH ×5 (06:19→21:59)
[2017-01-10] MEDS: Levothyroxine 50 MCG Tab PO SCH (06:19)
[2017-01-10] MEDS ORDERED: Magnesium Sulfate/Water 2 GM in Premix Bag 1 BAG IV ONE (08:21)
[2017-01-10] MEDS: Docusate Sodium 100 MG Cap PO SCH ×2 (08:25→20:37)
--- NOTE | 2017-01-10 08:25 | CR ---
Chest: Portable view of the chest was obtained. Comparison: Previous chest x-ray of 01/07/17. Heart is enlarged. Lungs are clear. Bony structures are grossly intact. Impression: 1. Cardiomegaly. Nothing acute is otherwise seen on portable chest x-ray. Diagnostic code #2
[2017-01-10] MEDS: Fluconazole 100 MG Tab PO SCH (08:26)
[2017-01-10] MEDS: Aspirin 81 MG Tab.Chew PO SCH (08:27)
[2017-01-10] MEDS: Cholecalciferol (Vitamin D3) 1,000 Unit Tab PO SCH (08:28)
[2017-01-10] MEDS: Multivitamins with Minerals/Folic Acid/Lutein/Zeaxanth Tab PO SCH (08:28)
[2017-01-10] MEDS: Metoprolol Succinate 25 MG Tab.ER PO SCH (08:29)
[2017-01-10] MEDS: amLODIPine 10 MG Tab PO SCH (08:29)
[2017-01-10] MEDS: Losartan 25 MG Tab PO SCH (08:30)
[2017-01-10] MEDS: Losartan 100 MG Tab PO SCH (08:30)
--- NOTE | 2017-01-10 08:33 | PCM.PN ---
- General Info Date of Service: 01/10/17 - Review of Systems General: Reports: Weakness - Patient Data Vitals - most recent: Last Vital Signs Temp 98.1 F 01/10/17 04:16 Pulse 69 01/10/17 04:16 Resp 16 01/10/17 04:16 BP 130/78 01/10/17 04:16 Pulse Ox 94 L 01/10/17 06:05 Weight - most recent: 213 lb 3.2 oz I&O - last 24 hours: Intake & Output 01/09/17 01/10/17 01/10/17 22:59 06:59 14:59 Intake Total 1241 Output Total 800 Balance 441 Lab Results last 24 hrs: Laboratory Results - last 24 hr 01/09/17 01/09/17 01/10/17 Range/Units 18:53 23:26 05:26 WBC 10.47 H (3.98-10.04) K/mm3 RBC 3.57 L (3.98-5.22) M/mm3 Hgb 10.7 L (11.2-15.7) gm/L Hct 32.7 L (34.1-44.9) % MCV 91.6 (79.4-94.8) fl MCH 30.0 (25.6-32.2) pg MCHC 32.7 (32.2-35.5) g/dl RDW Std Deviation 49.0 H (36.4-46.3) fL Plt Count 190 (182-369) K/mm3 MPV 11.1 (9.4-12.3) fl Neut % (Auto) 81.8 H (34.0-71.1) % Lymph % (Auto) 8.7 L (19.3-51.7) % [place] % (Auto) 8.6 (4.7-12.5) % Eos % (Auto) 0.6 L (0.7-5.8) Baso % (Auto) 0.1 (0.1-1.2) % Neut # (Auto) 8.57 H (1.56-6.13) K/mm3 Lymph # (Auto) 0.91 L (1.18-3.74) K/mm3 [place] # (Auto) 0.90 H (0.24-0.36) K/mm3 Eos # (Auto) 0.06 (0.04-0.36) K/mm3 Baso # (Auto) 0.01 (0.01-0.08) K/mm3 Manual Slide Review Abnormal smear Sodium (136-145) mEq/L Potassium (3.5-5.1) mEq/L Chloride (98-107) mEq/L Carbon Dioxide (21-32) mEq/L Anion Gap (5-15) BUN (7-18) mg/dL Creatinine (0.55-1.02) mg/dL Est Cr Clr Drug Dosing mL/min Estimated GFR (MDRD) (>60) mL/min BUN/Creatinine Ratio (14-18) Glucose (83-115) mg/dL POC Glucose 121 H (83-110) mg/dL Calcium (8.5-10.1) mg/dL Magnesium (1.8-2.4) mg/dl C-Reactive Protein (<1.0) mg/dL MRSA (PCR) Negative 01/10/17 01/10/17 Range/Units 05:26 06:18 WBC (3.98-10.04) K/mm3 RBC (3.98-5.22) M/mm3 Hgb (11.2-15.7) gm/L Hct (34.1-44.9) % MCV (79.4-94.8) fl MCH (25.6-32.2) pg MCHC (32.2-35.5) g/dl RDW Std Deviation (36.4-46.3) fL Plt Count (182-369) K/mm3 MPV (9.4-12.3) fl Neut % (Auto) (34.0-71.1) % Lymph % (Auto) (19.3-51.7) % [place] % (Auto) (4.7-12.5) % Eos % (Auto) (0.7-5.8) Baso % (Auto) (0.1-1.2) % Neut # (Auto) (1.56-6.13) K/mm3 Lymph # (Auto) (1.18-3.74) K/mm3 [place] # (Auto) (0.24-0.36) K/mm3 Eos # (Auto) (0.04-0.36) K/mm3 Baso # (Auto) (0.01-0.08) K/mm3 Manual Slide Review Sodium 129 L (136-145) mEq/L Potassium 3.7 (3.5-5.1) mEq/L Chloride 91 L (98-107) mEq/L Carbon Dioxide 31 (21-32) mEq/L Anion Gap 10.7 (5-15) BUN 24 H (7-18) mg/dL Creatinine 2.0 H (0.55-1.02) mg/dL Est Cr Clr Drug Dosing 15.31 mL/min Estimated GFR (MDRD) 24 (>60) mL/min BUN/Creatinine Ratio 12.0 L (14-18) Glucose 143 H (83-115) mg/dL POC Glucose 151 H (83-110) mg/dL Calcium 8.5 (8.5-10.1) mg/dL Magnesium 1.7 L (1.8-2.4) mg/dl C-Reactive Protein 3.7 H* (<1.0) mg/dL MRSA (PCR) Med Orders - Current: Current Medications Acetaminophen (Tylenol) 650 mg PO Q4H PRN PRN Reason: Pain (Mild 1-3)/fever Hydrocodone Bitart/Acetaminophen ([place] 325-5 Mg) 1 tab PO Q4H PRN PRN Reason: Pain (moderate 4-6) Albuterol/Ipratropium (Duoneb 3.0-0.5 Mg/3 Ml) 3 ml NEB Q4H PRN PRN Reason: Shortness Of Breath/wheezing Albuterol/Ipratropium (Duoneb 3.0-0.5 Mg/3 Ml) 3 ml NEB QIDRT [facility] Last Admin: 01/10/17 06:05 Dose: 3 ml Amlodipine Besylate (Norvasc) 10 mg PO DAILY [facility] Aspirin (Aspirin) 162 mg PO DAILY [facility] Bisacodyl (Dulcolax) 5 mg PO DAILY PRN PRN Reason: Constipation Cholecalciferol (Vitamin D3) 1,000 units PO DAILY [facility] Dicyclomine HCl (Bentyl) 20 mg PO Q6HR [facility] Last Admin: 01/10/17 06:19 Dose: 20 mg Docusate Sodium (Colace) 100 mg PO BID PRN PRN Reason: Constipation Docusate Sodium (Colace) 200 mg PO BID [facility] Last Admin: 06/29/17 21:51 Dose: 200 mg Famotidine (Pepcid) 20 mg PO DAILY [facility] Fluconazole (Diflucan) 100 mg PO DAILY [facility] Heparin Sodium (Porcine) (Heparin Sodium) 5,000 units SUBCUT Q8H [facility] Last Admin: 01/10/17 01:19 Dose: 5,000 units Hydralazine HCl (Apresoline) 20 mg IVPUSH Q4H PRN PRN Reason: Hypertension Hydromorphone HCl (Dilaudid) 0.25 mg IVPUSH Q2H PRN PRN Reason: Pain (severe 7-10) Promethazine HCl 12.5 mg/ (Sodium Chloride) 50.5 mls @ 100 mls/hr IV Q6H PRN PRN Reason: Nausea/Vomiting Dextrose/Sodium Chloride (Dextrose 5%-1/2 Ns) 1,000 mls @ 75 mls/hr IV ASDIRECTED [facility] Last Admin: 01/09/17 18:59 Dose: 75 mls/hr Ceftriaxone Sodium 1 gm/ (Sodium Chloride) 100 mls @ 200 mls/hr IV Q24H [facility] Magnesium Sulfate 2 gm/ Premix 50 mls @ 25 mls/hr IV ONETIME ONE Stop: 01/10/17 10:20 Levothyroxine Sodium (Synthroid) 50 mcg PO ACBREAKFAST [facility] Last Admin: 01/10/17 06:19 Dose: 50 mcg Lorazepam (Ativan) 0.25 mg IV Q6H PRN PRN Reason: Anxiety Last Admin: 01/09/17 21:50 Dose: 0.25 mg Lorazepam (Ativan) 1 mg IVPUSH Q4H PRN PRN Reason: Seizures Losartan Potassium (Cozaar) 100 mg PO DAILY [facility] Losartan Potassium (Cozaar) 50 mg PO DAILY [facility] Magnesium Sulfate (Pharmacy To Dose - Magnesium Replacement) 0 dose .XX ASDIRECTED PRN PRN Reason: RX to Dose Metoprolol Succinate (Toprol Xl) 25 mg PO DAILY [facility] Metoprolol Tartrate (Lopressor) 5 mg IVPUSH Q4H PRN PRN Reason: Tachycardia Miconazole (Micatin 2% Crm) 0 gm TOP BID [facility] Non-Formulary Medication (Estradiol [Vagifem]) 10 mcg VG DAILY PRN PRN Reason: atrophic vaginitis Ondansetron HCl (Zofran) 4 mg IV Q6H PRN PRN Reason: Nausea/Vomiting Pantoprazole Sodium (Protonix) 40 mg PO ACBREAKFAST [facility] Last Admin: 01/10/17 06:19 Dose: 40 mg Polyethylene Glycol (Miralax) 17 gm PO BID PRN PRN Reason: Constipation Potassium Chloride (Pharmacy To Dose - Potassium Replacement) 1 dose .XX ASDIRECTED [facility] Senna/Docusate Sodium (Senna Plus) 1 tab PO BID PRN PRN Reason: Constipation Simvastatin (Zocor) 20 mg PO BEDTIME [facility] Last Admin: 01/09/17 21:51 Dose: 20 mg Sucralfate (Carafate) 1 gm PO QIDACANDBED [facility] Last Admin: 01/10/17 06:19 Dose: 1 gm Temazepam (Restoril) 7.5 mg PO BEDTIME PRN PRN Reason: Sleep Thiamine HCl (Vitamin B-1) 100 mg PO BEDTIME [facility]RE[facility] Tramadol HCl (Ultram) 50 mg PO Q6H PRN PRN Reason: Pain Vit A/Vit C/Vit E/Selen/Cu/Zn/Lutei (Icaps Mv) 1 tab PO DAILY [facility] Discontinued Medications Aspirin (Aspirin) 81 mg PO DAILY [facility] Ceftriaxone Sodium (Rocephin) 1,000 mg IVPUSH Q24H [facility] Sodium Chloride (Normal Saline) 500 mls @ 999 mls/hr IV .BOLUS ONE Stop: 01/09/17 16:24 Last Admin: 01/09/17 15:57 Dose: 999 mls/hr Ceftriaxone Sodium 1 gm/ (Sodium Chloride) 100 mls @ 200 mls/hr IV ONETIME ONE Stop: 01/09/17 17:25 Last Admin: 01/09/17 17:02 Dose: 200 mls/hr Thiamine HCl 200 mg/ Sodium (Chloride) 102 mls @ 50 mls/hr IV ONETIME ONE Stop: 01/09/17 23:47 Last Admin: 01/09/17 21:50 Dose: 50 mls/hr Sodium Chloride (Normal Saline) Confirm Administered Dose 100 mls @ as directed .ROUTE .STK-MED ONE Stop: 01/09/17 21:39 Last Admin: 01/09/17 21:50 Dose: Not Given Senna/Docusate Sodium (Senna Plus) 1 tab PO BID PRN PRN Reason: Constipation Thiamine HCl (Vitamin B-1) 200 mg IV ONETIME ONE Stop: 01/09/17 17:39 Last Admin: 01/09/17 18:58 Dose: Not Given - Problem List & Annotations (1) Altered mental status SNOMED Code(s): 419312468 Code(s): R41.82 - ALTERED MENTAL STATUS, UNSPECIFIED Status: Acute Priority: High Current Visit: Yes Qualifiers: Altered mental status type: disorientation Qualified Code(s): R41.0 - Disorientation, unspecified (2) Urinary tract infection SNOMED Code(s): 92615633 Code(s): N39.0 - URINARY TRACT INFECTION, SITE NOT SPECIFIED Status: Acute Priority: High Current Visit: Yes Qualifiers: Urinary tract infection type: acute cystitis Hematuria presence: without hematuria Qualified Code(s): N30.00 - Acute cystitis without hematuria (3) Transient ischemic attack SNOMED Code(s): 892083975, 934787541 Code(s): G45.9 - TRANSIENT CEREBRAL ISCHEMIC ATTACK, UNSPECIFIED Status: Acute Priority: High Current Visit: Yes Qualifiers: Transient cerebral ischemia type: unspecified Qualified Code(s): G45.9 - Transient cerebral ischemic attack, unspecified (4) Acute renal failure SNOMED Code(s): 96511933 Code(s): N17.9 - ACUTE KIDNEY FAILURE, UNSPECIFIED Status: Acute Priority : High Current Visit: Yes Qualifiers: Acute renal failure type: unspecified Qualified Code(s): N17.9 - Acute kidney failure, unspecified (5) Hyponatremia SNOMED Code(s): 97159867 Code(s): E87.1 - HYPO-OSMOLALITY AND HYPONATREMIA Status: Acute Priority : High Current Visit: Yes (6) Hypotension SNOMED Code(s): 91298218 Code(s): I95.9 - HYPOTENSION, UNSPECIFIED Status: Resolved Priority: High Current Visit: Yes Qualifiers: Hypotension type: unspecified hypotension type Qualified Code(s): I95.9 - Hypotension, unspecified - Problem List Review Problem List Initiated/Reviewed/Updated: Yes - My Orders Last 24 Hours: My Active Orders 01/10/17 06:49 Blood Culture x2 Reflex Set [OM.PC] Stat 01/10/17 07:07 CULTURE BLOOD [BC] Stat 01/10/17 07:38 CULTURE BLOOD [BC] Stat 01/10/17 08:21 Magnesium Sulfate/Water [Magnesium Sulfate 2 GM in Water 50 ML] 2 gm Premix Bag 1 bag IV ONETIME 01/10/17 08:30 Dextrose 5%-1/2 Normal Saline @ 50 MLS/HR(1000ml) Dextrose 5%-0.45% NaCl [ Dextrose 5%-1/2 NS] 1,000 ml IV ASDIRECTED 01/10/17 09:00 Famotidine [Pepcid] 20 mg PO DAILY - Plan Plan:: Assessment/Plan: Acute: AMS - Likely 2/2 toxic, metabolic encephalopathy vs TIA; also untreated 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 - Risk Factors: UTI, Electrolyte Abnormality and Meds: Gabapentin, Ultram and Trazodone in setting of acute on chronic kidney disease--hold noted medications - Supportive Care - Continue szymanski catheter TIA - Has risk factors for it: Hx/o Malignant HTN, 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 No regional wall motion abnormalities. Moderate restrictive left ventricular hypertrophy, severely dilated left atrium , moderate aortic valve stenosis, mild to moderate mitral valve regurgitation , moderate mitral stenosis and severe mitral annular calcification - GEOTECHNICAL FIELD TECHNICIAN for swallow eval if not available may do nursing bedside swallow eval - Increased 81 mg po ASA to 162 mg po daily AMRCO A on CKD Stage 3 - Cr 2.3 and GFR 20--improved today to 2.0 and 24 respectively - Likely from over diuresis and UTI - Family suspected she is getting too much lasix - Gentle hydration - Continue to monitor Acute on Chronic UTI - UA impressive for UTI - Risk Factors: Hx/o Interstitial Cystitis, Urinary Frequency, Incontinence, Restricted Mobility and Chronic Under Pad Use - Received IV Rocephin in ED - Continue IV Abx - UA Cx/Sx Hyponatremia - Na is 127-->129 - Likely from over diurese - Currently on gentle hydration; will decrease dose slightly, 75cc/hr to 50cc /hr to avoid CHF - Seizure precaution - Will monitor HTN - Not well controlled--improved overnight and this morning - BP on admission was 123/108 mmHg - Consider PRN clonidine for better control - Likely untreated KELLEE High Fall Risk Chronic: Hx CHF--caution with IV hydration HLD Constipation DM2 GERD Hx/o Dysphagia and PUD OA/DJD Hypothyroidism--TSH WNL on 12/26/16 SUSIE Seborrheic Dermatitis Depression Nocturnal Hypoxia on 2.5 L NC at night Diverticulosis Hx/o PE, IBS Interstitial Cystitis and Rheumatic Fever Obesity with BMI 48 Probable KELLEE--untreated; suspect this is contributing to mental status fluctuations Plan: Admit to Med-Surge with Telemetry Routine AM Labs Resume Home Meds except diuretic and trazodone, gabapentin and ultram IVF for gentle hydration NPO until GEOTECHNICAL FIELD TECHNICIAN or nursing evaluation---did well with GEOTECHNICAL FIELD TECHNICIAN this am, will advance diet Ativan IVP PRN for abortive Seizure PT/OT consult Aspiration/Fall/Seizure Precautions SW/CM for d/c planning Code status: 1 Family not happy with [facility]. They would like to know if patient can be moved to [facility] on discharge. SW will visit with them to discuss further options. LOS likely will be >96 hours due to repeat admission, mental status change, AUTI , renal failure--likely NH placement over holiday weekend.
--- NOTE | 2017-01-10 08:57 | PCM.PN ---
- General Info Date of Service: 01/10/17 Admission Dx/Problem (Free Text): Patient is seen this morning, admitted last evening, [employer]TAIN has just finished evaluation. Patient is confused but sitting up at bedside. She is unable to answer where she is at this morning. Speech is garbled but discernable. She states "yes" when I ask if she is having trouble getting her words out but "no" with trouble finding her words. States "no" to any pain but later states bladder was "crampy". She was very difficult to arouse early this am per nursing reports. Functional Status: Reports: pain controlled. Denies: ambulating - Review of Systems General: Reports: Weakness, Night Sweats Cardiovascular: Reports: No Symptoms. Denies: Palpitations Gastrointestinal: Reports: No symptoms Genitourinary: Reports: pain (cramping) Neurological: Reports: Confusion, Trouble Speaking, Difficulty Walking, Weakness Psychiatric: Reports: confusion Systems Review Comment:: Difficult to obtain due to patient's confusion/mental status this morning. - Patient Data Vitals - most recent: Last Vital Signs Temp 98.1 F 01/10/17 04:16 Pulse 76 01/10/17 08:29 Resp 16 01/10/17 04:16 BP 120/85 01/10/17 08:30 Pulse Ox 94 L 01/10/17 06:05 Weight - most recent: 213 lb 3.2 oz I&O - last 24 hours: Intake & Output 01/09/17 01/10/17 01/10/17 22:59 06:59 14:59 Intake Total 1241 Output Total 800 Balance 441 Lab Results last 24 hrs: Laboratory Results - last 24 hr 01/09/17 01/09/17 01/10/17 Range/Units 18:53 23:26 05:26 WBC 10.47 H (3.98-10.04) K/mm3 RBC 3.57 L (3.98-5.22) M/mm3 Hgb 10.7 L (11.2-15.7) gm/L Hct 32.7 L (34.1-44.9) % MCV 91.6 (79.4-94.8) fl MCH 30.0 (25.6-32.2) pg MCHC 32.7 (32.2-35.5) g/dl RDW Std Deviation 49.0 H (36.4-46.3) fL Plt Count 190 (182-369) K/mm3 MPV 11.1 (9.4-12.3) fl Neut % (Auto) 81.8 H (34.0-71.1) % Lymph % (Auto) 8.7 L (19.3-51.7) % [place] % (Auto) 8.6 (4.7-12.5) % Eos % (Auto) 0.6 L (0.7-5.8) Baso % (Auto) 0.1 (0.1-1.2) % Neut # (Auto) 8.57 H (1.56-6.13) K/mm3 Lymph # (Auto) 0.91 L (1.18-3.74) K/mm3 [place] # (Auto) 0.90 H (0.24-0.36) K/mm3 Eos # (Auto) 0.06 (0.04-0.36) K/mm3 Baso # (Auto) 0.01 (0.01-0.08) K/mm3 Manual Slide Review Abnormal smear Sodium (136-145) mEq/L Potassium (3.5-5.1) mEq/L Chloride (98-107) mEq/L Carbon Dioxide (21-32) mEq/L Anion Gap (5-15) BUN (7-18) mg/dL Creatinine (0.55-1.02) mg/dL Est Cr Clr Drug Dosing mL/min Estimated GFR (MDRD) (>60) mL/min BUN/Creatinine Ratio (14-18) Glucose (83-115) mg/dL POC Glucose 121 H (83-110) mg/dL Calcium (8.5-10.1) mg/dL Magnesium (1.8-2.4) mg/dl C-Reactive Protein (<1.0) mg/dL MRSA (PCR) Negative 01/10/17 01/10/17 Range/Units 05:26 06:18 WBC (3.98-10.04) K/mm3 RBC (3.98-5.22) M/mm3 Hgb (11.2-15.7) gm/L Hct (34.1-44.9) % MCV (79.4-94.8) fl MCH (25.6-32.2) pg MCHC (32.2-35.5) g/dl RDW Std Deviation (36.4-46.3) fL Plt Count (182-369) K/mm3 MPV (9.4-12.3) fl Neut % (Auto) (34.0-71.1) % Lymph % (Auto) (19.3-51.7) % [place] % (Auto) (4.7-12.5) % Eos % (Auto) (0.7-5.8) Baso % (Auto) (0.1-1.2) % Neut # (Auto) (1.56-6.13) K/mm3 Lymph # (Auto) (1.18-3.74) K/mm3 [place] # (Auto) (0.24-0.36) K/mm3 Eos # (Auto) (0.04-0.36) K/mm3 Baso # (Auto) (0.01-0.08) K/mm3 Manual Slide Review Sodium 129 L (136-145) mEq/L Potassium 3.7 (3.5-5.1) mEq/L Chloride 91 L (98-107) mEq/L Carbon Dioxide 31 (21-32) mEq/L Anion Gap 10.7 (5-15) BUN 24 H (7-18) mg/dL Creatinine 2.0 H (0.55-1.02) mg/dL Est Cr Clr Drug Dosing 15.31 mL/min Estimated GFR (MDRD) 24 (>60) mL/min BUN/Creatinine Ratio 12.0 L (14-18) Glucose 143 H (83-115) mg/dL POC Glucose 151 H (83-110) mg/dL Calcium 8.5 (8.5-10.1) mg/dL Magnesium 1.7 L (1.8-2.4) mg/dl C-Reactive Protein 3.7 H* (<1.0) mg/dL MRSA (PCR) Med Orders - Current: Current Medications Acetaminophen (Tylenol) 650 mg PO Q4H PRN PRN Reason: Pain (Mild 1-3)/fever Albuterol/Ipratropium (Duoneb 3.0-0.5 Mg/3 Ml) 3 ml NEB Q4H PRN PRN Reason: Shortness Of Breath/wheezing Albuterol/Ipratropium (Duoneb 3.0-0.5 Mg/3 Ml) 3 ml NEB QIDRT [facility] Last Admin: 01/10/17 06:05 Dose: 3 ml Amlodipine Besylate (Norvasc) 10 mg PO DAILY [facility] Last Admin: 01/10/17 08:29 Dose: 10 mg Aspirin (Aspirin) 162 mg PO DAILY [facility] Last Admin: 01/10/17 08:27 Dose: 162 mg Bisacodyl (Dulcolax) 5 mg PO DAILY PRN PRN Reason: Constipation Cholecalciferol (Vitamin D3) 1,000 units PO DAILY [facility] Last Admin: 01/10/17 08:28 Dose: 1,000 units Dicyclomine HCl (Bentyl) 20 mg PO Q6HR [facility] Last Admin: 01/10/17 06:19 Dose: 20 mg Docusate Sodium (Colace) 200 mg PO BID [facility] Last Admin: 01/10/17 08:25 Dose: 200 mg Famotidine (Pepcid) 20 mg PO DAILY [facility] Fluconazole (Diflucan) 100 mg PO DAILY [facility] Last Admin: 01/10/17 08:26 Dose: 100 mg Heparin Sodium (Porcine) (Heparin Sodium) 5,000 units SUBCUT Q8H [facility] Last Admin: 01/10/17 08:25 Dose: 5,000 units Hydralazine HCl (Apresoline) 20 mg IVPUSH Q4H PRN PRN Reason: Hypertension Ceftriaxone Sodium 1 gm/ (Sodium Chloride) 100 mls @ 200 mls/hr IV Q24H [facility] Dextrose/Sodium Chloride (Dextrose 5%-1/2 Ns) 1,000 mls @ 50 mls/hr IV ASDIRECTED [facility] Levothyroxine Sodium (Synthroid) 50 mcg PO ACBREAKFAST [facility] Last Admin: 01/10/17 06:19 Dose: 50 mcg Lorazepam (Ativan) 1 mg IVPUSH Q4H PRN PRN Reason: Seizures Losartan Potassium (Cozaar) 100 mg PO DAILY [facility] Last Admin: 01/10/17 08:30 Dose: 100 mg Losartan Potassium (Cozaar) 50 mg PO DAILY [facility] Last Admin: 01/10/17 08:30 Dose: 50 mg Magnesium Oxide (Magnesium Oxide) 400 mg PO ONETIME ONE Stop: 01/10/17 11:01 Magnesium Sulfate (Pharmacy To Dose - Magnesium Replacement) 0 dose .XX ASDIRECTED PRN PRN Reason: RX to Dose Metoprolol Succinate (Toprol Xl) 25 mg PO DAILY [facility] Last Admin: 01/10/17 08:29 Dose: 25 mg Metoprolol Tartrate (Lopressor) 5 mg IVPUSH Q4H PRN PRN Reason: Tachycardia Miconazole (Micatin 2% Crm) 0 gm TOP BID [facility] Non-Formulary Medication (Estradiol [Vagifem]) 10 mcg VG DAILY PRN PRN Reason: atrophic vaginitis Ondansetron HCl (Zofran) 4 mg IV Q6H PRN PRN Reason: Nausea/Vomiting Pantoprazole Sodium (Protonix) 40 mg PO ACBREAKFAST [facility] Last Admin: 01/10/17 06:19 Dose: 40 mg Polyethylene Glycol (Miralax) 17 gm PO BID PRN PRN Reason: Constipation Potassium Chloride (Pharmacy To Dose - Potassium Replacement) 0 dose .XX ASDIRECTED PRN PRN Reason: RX TO DOSE Potassium Chloride (Klor-Con M20) 40 meq PO Q4H [facility] Stop: 01/10/17 13:01 Senna/Docusate Sodium (Senna Plus) 1 tab PO BID PRN PRN Reason: Constipation Simvastatin (Zocor) 20 mg PO BEDTIME [facility] Last Admin: 01/09/17 21:51 Dose: 20 mg Sucralfate (Carafate) 1 gm PO QIDACANDBED [facility] Last Admin: 01/10/17 06:19 Dose: 1 gm Thiamine HCl (Vitamin B-1) 100 mg PO BEDTIME [facility] Vit A/Vit C/Vit E/Selen/Cu/Zn/Lutei (Icaps Mv) 1 tab PO DAILY [facility] Last Admin: 01/10/17 08:28 Dose: 1 tab Discontinued Medications Hydrocodone Bitart/Acetaminophen ([place] 325-5 Mg) 1 tab PO Q4H PRN PRN Reason: Pain (moderate 4-6) Aspirin (Aspirin) 81 mg PO DAILY [facility] Ceftriaxone Sodium (Rocephin) 1,000 mg IVPUSH Q24H [facility] Docusate Sodium (Colace) 100 mg PO BID PRN PRN Reason: Constipation Hydromorphone HCl (Dilaudid) 0.25 mg IVPUSH Q2H PRN PRN Reason: Pain (severe 7-10) Sodium Chloride (Normal Saline) 500 mls @ 999 mls/hr IV .BOLUS ONE Stop: 01/09/17 16:24 Last Admin: 01/09/17 15:57 Dose: 999 mls/hr Ceftriaxone Sodium 1 gm/ (Sodium Chloride) 100 mls @ 200 mls/hr IV ONETIME ONE Stop: 01/09/17 17:25 Last Admin: 01/09/17 17:02 Dose: 200 mls/hr Promethazine HCl 12.5 mg/ (Sodium Chloride) 50.5 mls @ 100 mls/hr IV Q6H PRN PRN Reason: Nausea/Vomiting Dextrose/Sodium Chloride (Dextrose 5%-1/2 Ns) 1,000 mls @ 75 mls/hr IV ASDIRECTED [facility] Last Admin: 01/09/17 18:59 Dose: 75 mls/hr Thiamine HCl 200 mg/ Sodium (Chloride) 102 mls @ 50 mls/hr IV ONETIME ONE Stop: 01/09/17 23:47 Last Admin: 01/09/17 21:50 Dose: 50 mls/hr Sodium Chloride (Normal Saline) Confirm Administered Dose 100 mls @ as directed .ROUTE .STK-MED ONE Stop: 01/09/17 21:39 Last Admin: 01/09/17 21:50 Dose: Not Given Magnesium Sulfate 2 gm/ Premix 50 mls @ 25 mls/hr IV ONETIME ONE Stop: 01/10/17 10:20 Lorazepam (Ativan) 0.25 mg IV Q6H PRN PRN Reason: Anxiety Last Admin: 01/09/17 21:50 Dose: 0.25 mg Senna/Docusate Sodium (Senna Plus) 1 tab PO BID PRN PRN Reason: Constipation Temazepam (Restoril) 7.5 mg PO BEDTIME PRN PRN Reason: Sleep Thiamine HCl (Vitamin B-1) 200 mg IV ONETIME ONE Stop: 01/09/17 17:39 Last Admin: 01/09/17 18:58 Dose: Not Given Tramadol HCl (Ultram) 50 mg PO Q6H PRN PRN Reason: Pain - Exam Quality Assessment: DVT prophylaxis General: alert, cooperative, no acute distress (pleasant) HEENT: Pupils equal, Pupils reactive, EOMI, Mucous membr. moist/pink Neck: supple Lungs: Clear to auscultation, Normal respiratory effort Cardiovascular: Regular Rate, Regular Rhythm, Murmurs (blowing systolic murmur grade 2) Abdomen: bowel sounds present, soft (Female) Exam: Deferred Back Exam: Normal Inspection Extremities: edema (trace to ankles bilat) Neurological: No: normal speech (garbled but discernable; really only able to answer yes/no questions this morning), strength equal bilateral (left upper extremity with trace weakness compared to left) Psy/Mental Status: alert, other (confused) - Problem List & Annotations (1) Altered mental status SNOMED Code(s): 458524078 Code(s): R41.82 - ALTERED MENTAL STATUS, UNSPECIFIED Status: Acute Priority: High Current Visit: Yes Qualifiers: Altered mental status type: disorientation Qualified Code(s): R41.0 - Disorientation, unspecified (2) Urinary tract infection SNOMED Code(s): 48888110 Code(s): N39.0 - URINARY TRACT INFECTION, SITE NOT SPECIFIED Status: Acute Priority: High Current Visit: Yes Qualifiers: Urinary tract infection type: acute cystitis Hematuria presence: without hematuria Qualified Code(s): N30.00 - Acute cystitis without hematuria (3) Transient ischemic attack SNOMED Code(s): 797463965, 461166719 Code(s): G45.9 - TRANSIENT CEREBRAL ISCHEMIC ATTACK, UNSPECIFIED Status: Acute Priority: High Current Visit: Yes Qualifiers: Transient cerebral ischemia type: unspecified Qualified Code(s): G45.9 - Transient cerebral ischemic attack, unspecified (4) Acute renal failure SNOMED Code(s): 20580930 Code(s): N17.9 - ACUTE KIDNEY FAILURE, UNSPECIFIED Status: Acute Priority : High Current Visit: Yes Qualifiers: Acute renal failure type: unspecified Qualified Code(s): N17.9 - Acute kidney failure, unspecified (5) Hyponatremia SNOMED Code(s): 37540601 Code(s): E87.1 - HYPO-OSMOLALITY AND HYPONATREMIA Status: Acute Priority : High Current Visit: Yes (6) Hypotension SNOMED Code(s): 75011114 Code(s): I95.9 - HYPOTENSION, UNSPECIFIED Status: Resolved Priority: High Current Visit: Yes Qualifiers: Hypotension type: unspecified hypotension type Qualified Code(s): I95.9 - Hypotension, unspecified - Problem List Review Problem List Initiated/Reviewed/Updated: Yes - My Orders Last 24 Hours: My Active Orders 01/10/17 06:49 Blood Culture x2 Reflex Set [OM.PC] Stat 01/10/17 07:07 CULTURE BLOOD [BC] Stat 01/10/17 07:38 CULTURE BLOOD [BC] Stat 01/10/17 08:30 Dextrose 5%-0.45% NaCl [Dextrose 5%-1/2 NS] 1,000 ml IV ASDIRECTED 01/10/17 09:00 Famotidine [Pepcid] 20 mg PO DAILY - Plan Plan:: Assessment/Plan: Acute: AMS - Likely 2/2 toxic, metabolic encephalopathy vs TIA; also untreated 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: very sedated this morning-- will DC all narcotic and benzodiazapine medications- she did get ativan last night 0.25mg IVP. 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 trace lt sided upper extremity weakness on exam - Offered Brain MRI and Head/Neck MRA to family but deferred since her symptoms are resolving - 2D echo 12/25/16: LVEF 65-70%. No regional wall motion abnormalities. Moderate restrictive left ventricular hypertrophy, severely dilated left atrium , moderate aortic valve stenosis, mild to moderate mitral valve regurgitation , moderate mitral stenosis and severe mitral annular calcification - [employer] for swallow eval if not available may do nursing bedside swallow eval; will also request cog eval - Increased 81 mg po ASA to 162 mg po daily MARCO A on CKD Stage 3 - Cr 2.3 and GFR 20--improved today to 2.0 and 24 respectively - Likely from over diuresis and UTI - Family suspected she is getting too much lasix - Gentle hydration - Continue to monitor Acute on Chronic UTI - UA impressive for UTI - Risk Factors: Hx/o Interstitial Cystitis, Urinary Frequency, Incontinence, Restricted Mobility and Chronic Under Pad Use - Received IV Rocephin in ED - Continue IV Abx - UA Cx/Sx Hyponatremia - Na is 127-->129 - Likely from over diurese - Currently on gentle hydration; will decrease dose slightly, 75cc/hr to 50cc /hr to avoid CHF - Seizure precaution - Will monitor HTN - Not well controlled--improved overnight and this morning - BP on admission was 123/108 mmHg - Consider PRN clonidine for better control - Likely untreated KELLEE High Fall Risk Chronic: Hx CHF--caution with IV hydration HLD Constipation DM2 GERD Hx/o Dysphagia and PUD OA/DJD Hypothyroidism--TSH WNL on 12/26/16 SUSIE Seborrheic Dermatitis Depression Nocturnal Hypoxia on 2.5 L NC at night Diverticulosis Hx/o PE, IBS Interstitial Cystitis and Rheumatic Fever Obesity with BMI 48 Probable KELLEE--untreated; suspect this is contributing to mental status fluctuations Plan: Admit to Med-[facility] with Telemetry Routine AM Labs Resume Home Meds except diuretic and trazodone, gabapentin and ultram; dc all narcotic and benzodiazapine medications for now due to sedation this morning IVF for gentle hydration NPO until [employer]TAIN or nursing evaluation -cog eval also ordered this am with [employer]TAIN Ativan IVP PRN for abortive Seizure PT/OT consult Aspiration/Fall/Seizure Precautions SW/CM for d/c planning Code status: 1 Family not happy with [facility]. They would like to know if patient can be moved to [facility] on discharge. SW will visit with them to discuss further options. LOS likely will be >96 hours due to repeat admission, mental status change, AUTI , renal failure--likely NH placement over holiday weekend.
[2017-01-10] MEDS ORDERED: Aspirin 81 MG Tab.Chew PO SCH (09:00)
[2017-01-10] MEDS: Magnesium Oxide 400 MG Tab PO ONE ×2 (09:15→11:54)
[2017-01-10] MEDS: Miconazole 2% Crm 42.5 GM Tube TOP SCH ×2 (09:16→21:58)
[2017-01-10] MEDS: Famotidine 20 MG Tab PO SCH (09:16)
[2017-01-10] MEDS: Potassium Chloride 20 MEQ Tab.ER PO SCH ×2 (09:16→12:24)
[2017-01-10] MEDS: Dextrose 5%-0.45% NaCl 1,000 ML IV SCH (10:41)
[2017-01-10] MEDS ORDERED: cefTRIAXone 1 GM in Sodium Chloride 0.9% 100 ML IV SCH (17:00)
[2017-01-10] MEDS: cefTRIAXone 1 GM in Sodium Chloride 0.9% 100 ML IV SCH (17:24)
[2017-01-10] MEDS: Simvastatin 20 MG Tab PO SCH (20:36)
[2017-01-10] MEDS: Thiamine 100 MG Tab PO SCH (20:36)
[2017-01-11] MEDS: Heparin Sodium 5,000 Units/ML Vial SUBCUT SCH ×3 (02:30→17:10)
[2017-01-11] MEDS: Acetaminophen 325 MG Tab PO PRN ×2 (04:28→13:20)
[2017-01-11] MEDS: Albuterol/Ipratropium 3.0-0.5 MG/3 ML Neb Soln NEB SCH ×4 (06:20→20:38)
[2017-01-11] MEDS: Sucralfate Suspension 1 GM/10 ML Cup PO SCH ×4 (06:29→22:36)
[2017-01-11] MEDS: Levothyroxine 50 MCG Tab PO SCH (06:29)
[2017-01-11] MEDS: Pantoprazole 40 MG Tab.CR PO SCH (06:29)
[2017-01-11] MEDS: Dextrose 5%-0.45% NaCl 1,000 ML IV SCH (06:31)
--- NOTE | 2017-01-11 07:39 | PCM.PN ---
- General Info Date of Service: 01/11/17 Subjective Update: Follow Up Functional Status: Reports: pain controlled, tolerating diet, urinating. Denies : new symptoms - Review of Systems General: Denies: Fever, Chills HEENT: Reports: no symptoms Pulmonary: Denies: shortness of breath Cardiovascular: Denies: Chest Pain Gastrointestinal: Denies: Abdominal pain, Nausea, Vomiting Genitourinary: Reports: other (crampy bladder) Musculoskeletal: Reports: no symptoms Skin: Denies: cyanosis, pruritis, rash Neurological: Reports: Difficulty Walking, Weakness, Gait Disturbance. Denies: Confusion, Dizziness, Seizure, Syncope Psychiatric: Denies: depression, anxiety, agitation, hallucinations Systems Review Comment:: Patient had a rough night. She was urinating all over last night. She complaints of her night nurse not being helpful. She states "I feel horrible". She feels exhausted but no complaints of shortness of breath or chest pain. She is somnolent and pleasantly confused. She has no new complaints. Her lab continues to improve. - Patient Data Vitals - most recent: Last Vital Signs Temp 36.8 C 01/11/17 04:23 Pulse 67 01/11/17 04:23 Resp 16 01/11/17 04:23 BP 141/54 H 01/11/17 04:23 Pulse Ox 96 01/11/17 06:23 Weight - most recent: 96.252 kg I&O - last 24 hours: Intake & Output 01/10/17 01/11/17 01/11/17 22:59 06:59 14:59 Intake Total 1000 1053 Output Total 300 2150 Balance 700 -1097 Lab Results last 24 hrs: Laboratory Results - last 24 hr 01/10/17 01/11/17 01/11/17 Range/Units 20:52 05:55 05:55 WBC 7.48 (3.98-10.04) K/mm3 RBC 3.56 L (3.98-5.22) M/mm3 Hgb 10.3 L (11.2-15.7) gm/L Hct 33.2 L (34.1-44.9) % MCV 93.3 (79.4-94.8) fl MCH 28.9 (25.6-32.2) pg MCHC 31.0 L (32.2-35.5) g/dl RDW Std Deviation 49.4 H (36.4-46.3) fL Plt Count 182 (182-369) K/mm3 MPV 11.3 (9.4-12.3) fl Neut % (Auto) 77.7 H (34.0-71.1) % Lymph % (Auto) 11.2 L (19.3-51.7) % Upson % (Auto) 9.6 (4.7-12.5) % Eos % (Auto) 1.3 (0.7-5.8) Baso % (Auto) 0.1 (0.1-1.2) % Neut # (Auto) 5.80 (1.56-6.13) K/mm3 Lymph # (Auto) 0.84 L (1.18-3.74) K/mm3 Upson # (Auto) 0.72 H (0.24-0.36) K/mm3 Eos # (Auto) 0.10 (0.04-0.36) K/mm3 Baso # (Auto) 0.01 (0.01-0.08) K/mm3 Sodium 133 L (136-145) mEq/L Potassium 4.4 (3.5-5.1) mEq/L Chloride 98 (98-107) mEq/L Carbon Dioxide 29 (21-32) mEq/L Anion Gap 10.4 (5-15) BUN 19 H (7-18) mg/dL Creatinine 1.6 H (0.55-1.02) mg/dL Est Cr Clr Drug Dosing 19.14 mL/min Estimated GFR (MDRD) 31 (>60) mL/min BUN/Creatinine Ratio 11.9 L (14-18) Glucose 138 H (83-115) mg/dL POC Glucose 134 H (83-110) mg/dL Calcium 8.9 (8.5-10.1) mg/dL Magnesium 1.9 (1.8-2.4) mg/dl C-Reactive Protein 8.7 H* (<1.0) mg/dL 01/11/17 Range/Units 06:39 WBC (3.98-10.04) K/mm3 RBC (3.98-5.22) M/mm3 Hgb (11.2-15.7) gm/L Hct (34.1-44.9) % MCV (79.4-94.8) fl MCH (25.6-32.2) pg MCHC (32.2-35.5) g/dl RDW Std Deviation (36.4-46.3) fL Plt Count (182-369) K/mm3 MPV (9.4-12.3) fl Neut % (Auto) (34.0-71.1) % Lymph % (Auto) (19.3-51.7) % Upson % (Auto) (4.7-12.5) % Eos % (Auto) (0.7-5.8) Baso % (Auto) (0.1-1.2) % Neut # (Auto) (1.56-6.13) K/mm3 Lymph # (Auto) (1.18-3.74) K/mm3 Upson # (Auto) (0.24-0.36) K/mm3 Eos # (Auto) (0.04-0.36) K/mm3 Baso # (Auto) (0.01-0.08) K/mm3 Sodium (136-145) mEq/L Potassium (3.5-5.1) mEq/L Chloride (98-107) mEq/L Carbon Dioxide (21-32) mEq/L Anion Gap (5-15) BUN (7-18) mg/dL Creatinine (0.55-1.02) mg/dL Est Cr Clr Drug Dosing mL/min Estimated GFR (MDRD) (>60) mL/min BUN/Creatinine Ratio (14-18) Glucose (83-115) mg/dL POC Glucose 139 H (83-110) mg/dL Calcium (8.5-10.1) mg/dL Magnesium (1.8-2.4) mg/dl C-Reactive Protein (<1.0) mg/dL Med Orders - Current: Current Medications Acetaminophen (Tylenol) 650 mg PO Q4H PRN PRN Reason: Pain (Mild 1-3)/fever Last Admin: 01/11/17 04:28 Dose: 650 mg Albuterol/Ipratropium (Duoneb 3.0-0.5 Mg/3 Ml) 3 ml NEB Q4H PRN PRN Reason: Shortness Of Breath/wheezing Albuterol/Ipratropium (Duoneb 3.0-0.5 Mg/3 Ml) 3 ml NEB QIDRT [facility] Last Admin: 01/11/17 06:20 Dose: 3 ml Amlodipine Besylate (Norvasc) 10 mg PO DAILY [facility] Last Admin: 01/10/17 08:29 Dose: 10 mg Aspirin (Aspirin) 162 mg PO DAILY [facility] Last Admin: 01/10/17 08:27 Dose: 162 mg Bisacodyl (Dulcolax) 5 mg PO DAILY PRN PRN Reason: Constipation Cholecalciferol (Vitamin D3) 1,000 units PO DAILY [facility] Last Admin: 01/10/17 08:28 Dose: 1,000 units Docusate Sodium (Colace) 200 mg PO BID [facility] Last Admin: 01/10/17 20:37 Dose: 200 mg Famotidine (Pepcid) 20 mg PO DAILY [facility] Last Admin: 01/10/17 09:16 Dose: 20 mg Fluconazole (Diflucan) 100 mg PO DAILY [facility] Last Admin: 01/10/17 08:26 Dose: 100 mg Heparin Sodium (Porcine) (Heparin Sodium) 5,000 units SUBCUT Q8H [facility] Last Admin: 01/11/17 02:30 Dose: 5,000 units Hydralazine HCl (Apresoline) 20 mg IVPUSH Q4H PRN PRN Reason: Hypertension Dextrose/Sodium Chloride (Dextrose 5%-1/2 Ns) 1,000 mls @ 50 mls/hr IV ASDIRECTED [facility] Last Admin: 01/11/17 06:31 Dose: 50 mls/hr Ceftriaxone Sodium 1 gm/ (Sodium Chloride) 100 mls @ 200 mls/hr IV Q24H [facility] Last Admin: 01/10/17 17:24 Dose: 200 mls/hr Levothyroxine Sodium (Synthroid) 50 mcg PO ACBREAKFAST [facility] Last Admin: 01/11/17 06:29 Dose: 50 mcg Lorazepam (Ativan) 1 mg IVPUSH Q4H PRN PRN Reason: Seizures Losartan Potassium (Cozaar) 100 mg PO DAILY [facility] Last Admin: 01/10/17 08:30 Dose: 100 mg Losartan Potassium (Cozaar) 50 mg PO DAILY [facility] Last Admin: 01/10/17 08:30 Dose: 50 mg Magnesium Sulfate (Pharmacy To Dose - Magnesium Replacement) 0 dose .XX ASDIRECTED PRN PRN Reason: RX to Dose Metoprolol Succinate (Toprol Xl) 25 mg PO DAILY [facility] Last Admin: 01/10/17 08:29 Dose: 25 mg Metoprolol Tartrate (Lopressor) 5 mg IVPUSH Q4H PRN PRN Reason: Tachycardia Miconazole (Micatin 2% Crm) 0 gm TOP BID [facility] Last Admin: 01/10/17 21:58 Dose: Not Given Modafinil (Provigil) 100 mg PO DAILY [facility] Ondansetron HCl (Zofran) 4 mg IV Q6H PRN PRN Reason: Nausea/Vomiting Pantoprazole Sodium (Protonix) 40 mg PO ACBREAKFAST [facility] Last Admin: 01/11/17 06:29 Dose: 40 mg Polyethylene Glycol (Miralax) 17 gm PO BID PRN PRN Reason: Constipation Potassium Chloride (Pharmacy To Dose - Potassium Replacement) 0 dose .XX ASDIRECTED PRN PRN Reason: RX TO DOSE Senna/Docusate Sodium (Senna Plus) 1 tab PO BID PRN PRN Reason: Constipation Simvastatin (Zocor) 20 mg PO BEDTIME [facility] Last Admin: 01/10/17 20:36 Dose: 20 mg Sucralfate (Carafate) 1 gm PO QIDACANDBED [facility] Last Admin: 01/11/17 06:29 Dose: 1 gm Thiamine HCl (Vitamin B-1) 100 mg PO BEDTIME [facility] Last Admin: 01/10/17 20:36 Dose: 100 mg Vit A/Vit C/Vit E/Selen/Cu/Zn/Lutei (Icaps Mv) 1 tab PO DAILY [facility] Last Admin: 01/10/17 08:28 Dose: 1 tab Discontinued Medications Hydrocodone Bitart/Acetaminophen (Albia 325-5 Mg) 1 tab PO Q4H PRN PRN Reason: Pain (moderate 4-6) Aspirin (Aspirin) 81 mg PO DAILY [facility] Ceftriaxone Sodium (Rocephin) 1,000 mg IVPUSH Q24H [facility] Dicyclomine HCl (Bentyl) 20 mg PO Q6HR [facility] Last Admin: 01/10/17 06:19 Dose: 20 mg Docusate Sodium (Colace) 100 mg PO BID PRN PRN Reason: Constipation Hydromorphone HCl (Dilaudid) 0.25 mg IVPUSH Q2H PRN PRN Reason: Pain (severe 7-10) Sodium Chloride (Normal Saline) 500 mls @ 999 mls/hr IV .BOLUS ONE Stop: 01/09/17 16:24 Last Admin: 01/09/17 15:57 Dose: 999 mls/hr Ceftriaxone Sodium 1 gm/ (Sodium Chloride) 100 mls @ 200 mls/hr IV ONETIME ONE Stop: 01/09/17 17:25 Last Admin: 01/09/17 17:02 Dose: 200 mls/hr Promethazine HCl 12.5 mg/ (Sodium Chloride) 50.5 mls @ 100 mls/hr IV Q6H PRN PRN Reason: Nausea/Vomiting Dextrose/Sodium Chloride (Dextrose 5%-1/2 Ns) 1,000 mls @ 75 mls/hr IV ASDIRECTED [facility] Last Admin: 01/09/17 18:59 Dose: 75 mls/hr Ceftriaxone Sodium 1 gm/ (Sodium Chloride) 100 mls @ 200 mls/hr IV Q24H [facility] Thiamine HCl 200 mg/ Sodium (Chloride) 102 mls @ 50 mls/hr IV ONETIME ONE Stop: 01/09/17 23:47 Last Admin: 01/09/17 21:50 Dose: 50 mls/hr Sodium Chloride (Normal Saline) Confirm Administered Dose 100 mls @ as directed .ROUTE .STK-MED ONE Stop: 01/09/17 21:39 Last Admin: 01/09/17 21:50 Dose: Not Given Magnesium Sulfate 2 gm/ Premix 50 mls @ 25 mls/hr IV ONETIME ONE Stop: 01/10/17 10:20 Last Admin: 01/10/17 09:49 Dose: Not Given Lorazepam (Ativan) 0.25 mg IV Q6H PRN PRN Reason: Anxiety Last Admin: 01/09/17 21:50 Dose: 0.25 mg Magnesium Oxide (Magnesium Oxide) 400 mg PO ONETIME ONE Stop: 01/10/17 11:01 Last Admin: 01/10/17 11:54 Dose: Not Given Estradiol [Vagifem] (10 Mcg) 0 each VAG DAILY PRN PRN Reason: atrophic vaginitis Potassium Chloride (Klor-Con M20) 40 meq PO Q4H [facility] Stop: 01/10/17 13:01 Last Admin: 01/10/17 12:24 Dose: 40 meq Senna/Docusate Sodium (Senna Plus) 1 tab PO BID PRN PRN Reason: Constipation Temazepam (Restoril) 7.5 mg PO BEDTIME PRN PRN Reason: Sleep Thiamine HCl (Vitamin B-1) 200 mg IV ONETIME ONE Stop: 01/09/17 17:39 Last Admin: 01/09/17 18:58 Dose: Not Given Tramadol HCl (Ultram) 50 mg PO Q6H PRN PRN Reason: Pain - Exam Quality Assessment: supplemental oxygen General: cooperative, no acute distress, sedated, other (Morbidly Obese) HEENT: Pupils equal, Pupils reactive, Mucous membr. moist/pink, Other (short and thick) Neck: supple, trachea midline, no thyromegaly Lungs: Normal respiratory effort, Decreased breath sounds Cardiovascular: Regular Rate, Regular Rhythm Abdomen: bowel sounds present, soft, no tenderness, no distension, other (Obese) (Female) Exam: Deferred Back Exam: Normal Inspection, Decreased Range of Motion Extremities: no edema, normal pulses, no tenderness/swelling, no clubbing, no cyanosis, no calf tenderness Peripheral Pulses: 2+: Dorsalis Pedis (L) Skin: warm, dry, intact Neurological: no new focal deficit, normal speech, normal tone Psy/Mental Status: alert, normal affect, normal mood, other (somnolent) - Problem List Review Problem List Initiated/Reviewed/Updated: Yes - My Orders Last 24 Hours: My Active Orders 01/10/17 09:00 Miconazole [Micatin 2% Crm] 0 gm TOP BID 01/10/17 11:18 Urinary Catheter Assessment [RC] ASDIRECTED 01/10/17 11:30 Insert Urinary Catheter [OM.PC] Q24H 01/10/17 14:33 Consult to Speech Language Pathology [[employer] Evaluation and Treatment] [CONS] Routine 01/10/17 16:13 Bladder Scan [RC] [id number] 01/10/17 17:00 cefTRIAXone [Rocephin] 1 gm Sodium Chloride 0.9% [Normal Saline] 100 ml IV Q24H 01/11/17 09:00 Modafinil [Provigil] 100 mg PO DAILY 01/11/17 Breakfast National Dysphagia Diet [DIET] - Plan Plan:: Assessment/Plan: Acute: AMS - Likely 2/2 toxic, metabolic encephalopathy vs TIA; also untreated 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 - Narcotics and Benzos all discontinued; Gabapentin, Ultram and Trazodone also held - She somnolent this am - Risk Factors: UTI, Electrolyte Abnormality and Meds: Gabapentin, Ultram and Trazodone in setting of acute on chronic kidney disease - Supportive Care - Will try provigil in am, so she be more alert/awake for most of the day TIA - Has risk factors for it: Hx/o Malignant HTN, 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 No regional wall motion abnormalities. Moderate restrictive left ventricular hypertrophy, severely dilated left atrium , moderate aortic valve stenosis, mild to moderate mitral valve regurgitation , moderate mitral stenosis and severe mitral annular calcification - [employer] for swallow eval if not available may do nursing bedside swallow eval; will also request cog eval - Continue 162 mg ASA po daily MARCO A on CKD Stage 3, Continues to improve - Cr 2.3 and GFR 20--improved today to 2.0 and 24 respectively; Cr now is 1.6 - Likely from over diuresis and UTI - Family suspected she is getting too much lasix from thr facility - Saline lock - Continue to monitor Acute on Chronic UTI - UA impressive for UTI - Risk Factors: Hx/o Interstitial Cystitis, Urinary Frequency, Incontinence, Restricted Mobility and Chronic Under Pad Use - She complains of bladder cramps: consider vaginitis?, will refer to see a specialist after discharge - Continue IV Rocephin - Pending UA Cx/Sx Hyponatremia - Na is 127-->129 --> 133 - Likely from over diurese - Salt tablet TID x3 3 doses only - D/c PRN Ativan for abortive seizure - Will monitor HTN - Labile blood pressure but mostly controlled - BP on admission was 123/108 mmHg - Untreated KELLEE is a significant contributory to this High Fall Risk Chronic: Hx CHF HLD Constipation DM2 GERD Hx/o Dysphagia and PUD OA/DJD Hypothyroidism--TSH WNL on 12/26/16 SUSIE Seborrheic Dermatitis Depression Nocturnal Hypoxia on 2.5 L NC at night Diverticulosis Hx/o PE, IBS Interstitial Cystitis and Rheumatic Fever Obesity with BMI 48 Probable KELLEE--untreated; suspect this is contributing to mental status fluctuations and not controlled blood pressure, she need sleep study (this was recommended last admission) Plan: She is fairly stable Routine AM Labs Awaiting cog eval report Continue PT/OT Avoid all meds with sedating, hypnotic and anticholinergic effects if all possible Dietary consult for weight management Aspiration/Fall Precautions SW/CM for d/c planning Additional orders as above Code status: 1 LOS anticipate > 96 hrs due to repeat admission, mental status change, AUTI, renal failure--likely NH placement over holiday weekend.
[2017-01-11] MEDS ORDERED: Magnesium Sulfate/Water 2 GM in Premix Bag 1 BAG IV ONE (09:00)
[2017-01-11] MEDS ORDERED: Modafinil 200 MG Tab PO SCH (09:00)
[2017-01-11] MEDS: Modafinil 200 MG Tab PO SCH (10:40)
[2017-01-11] MEDS: Cholecalciferol (Vitamin D3) 1,000 Unit Tab PO SCH (10:40)
[2017-01-11] MEDS: Famotidine 20 MG Tab PO SCH (10:41)
[2017-01-11] MEDS: Docusate Sodium 100 MG Cap PO SCH ×2 (10:41→21:31)
[2017-01-11] MEDS: Aspirin 81 MG Tab.Chew PO SCH (10:41)
[2017-01-11] MEDS: Fluconazole 100 MG Tab PO SCH (10:42)
[2017-01-11] MEDS: Multivitamins with Minerals/Folic Acid/Lutein/Zeaxanth Tab PO SCH (10:42)
[2017-01-11] MEDS: Miconazole 2% Crm 42.5 GM Tube TOP SCH ×3 (10:43→22:01)
[2017-01-11] MEDS: Metoprolol Succinate 25 MG Tab.ER PO SCH (11:04)
[2017-01-11] MEDS: amLODIPine 10 MG Tab PO SCH (11:04)
[2017-01-11] MEDS: Losartan 25 MG Tab PO SCH (11:06)
[2017-01-11] MEDS: Losartan 100 MG Tab PO SCH (11:06)
[2017-01-11] MEDS ORDERED: Sodium Chloride 0.9% 10 ML Syringe FLUSH PRN (11:57)
[2017-01-11] MEDS: Potassium Chloride/Sodium Chloride Tab PO SCH ×3 (12:51→21:30)
[2017-01-11] MEDS: cefTRIAXone 1 GM in Sodium Chloride 0.9% 100 ML IV SCH (17:10)
--- NOTE | 2017-01-11 19:07 | PCM.SN ---
- Free Text/Narrative Note: Discussed with patient and about her pelvic cramps. I informed patient/ that this is most likely related to her history of interstitial cystitis. Her told me, patient has had pelvic surgery in the past and was also getting botox injection to relax her bladder. At that time, she was seeing Dr. Howard. Unfortunately, she has not seen any urologist since the specialist left [place]. I offered elmiron or myrbetriq for now but cautioned them with with its synergistic effects with her other home maintenance medications: gabapentin, trazodone, bentyl and trazodone (sedation/somnolence/disorientation/confusion/ anticholinergic etc.). All currently on hold except for bentyl due to her IBS.
[2017-01-11] MEDS: Thiamine 100 MG Tab PO SCH (21:16)
[2017-01-11] MEDS: Simvastatin 20 MG Tab PO SCH (21:30)
[2017-01-11] MEDS: MICONAZOLE 2% TOP SCH (22:00)
[2017-01-11] MEDS: Levofloxacin/Dextrose 5%-Water 250 MG in Premix Bag 1 BAG IV SCH (22:24)
[2017-01-11] MEDS: LORazepam 2 MG/ML MDV IVPUSH PRN (22:27)
[2017-01-12] MEDS: Heparin Sodium 5,000 Units/ML Vial SUBCUT SCH ×3 (02:09→17:36)
[2017-01-12] MEDS: Acetaminophen 325 MG Tab PO PRN ×2 (02:10→19:59)
[2017-01-12] MEDS: Albuterol/Ipratropium 3.0-0.5 MG/3 ML Neb Soln NEB SCH ×4 (06:14→20:17)
[2017-01-12] MEDS: Levothyroxine 50 MCG Tab PO SCH (06:30)
[2017-01-12] MEDS: Pantoprazole 40 MG Tab.CR PO SCH (06:30)
[2017-01-12] MEDS: Sucralfate Suspension 1 GM/10 ML Cup PO SCH ×5 (06:31→21:15)
[2017-01-12] MEDS: Losartan 25 MG Tab PO SCH (08:41)
[2017-01-12] MEDS: Docusate Sodium 100 MG Cap PO SCH ×2 (08:41→19:59)
[2017-01-12] MEDS: Aspirin 81 MG Tab.Chew PO SCH (08:42)
[2017-01-12] MEDS: Multivitamins with Minerals/Folic Acid/Lutein/Zeaxanth Tab PO SCH (08:42)
[2017-01-12] MEDS: Cholecalciferol (Vitamin D3) 1,000 Unit Tab PO SCH (08:42)
[2017-01-12] MEDS: amLODIPine 10 MG Tab PO SCH (08:42)
[2017-01-12] MEDS: Fluconazole 100 MG Tab PO SCH (08:43)
[2017-01-12] MEDS: Famotidine 20 MG Tab PO SCH (08:43)
[2017-01-12] MEDS: Metoprolol Succinate 25 MG Tab.ER PO SCH (08:43)
[2017-01-12] MEDS: Losartan 100 MG Tab PO SCH (08:45)
[2017-01-12] MEDS: Saccharomyces Boulardii (Probiotic) 250 MG Cap PO SCH (08:45)
--- NOTE | 2017-01-12 08:59 | PCM.PN ---
- General Info Date of Service: 01/12/17 Subjective Update: Follow Up Functional Status: Reports: pain controlled, tolerating diet, ambulating, urinating - Review of Systems General: Denies: Fever, Weakness, Fatigue, Malaise, Chills HEENT: Reports: no symptoms Pulmonary: Denies: shortness of breath Cardiovascular: Denies: Chest Pain Gastrointestinal: Denies: Abdominal pain, Nausea, Vomiting Genitourinary: Reports: no symptoms Musculoskeletal: Reports: no symptoms Skin: Reports: no symptoms Neurological: Reports: No Symptoms, Difficulty Walking, Gait Disturbance. Denies: Confusion Psychiatric: Denies: depression, anxiety, hallucinations Systems Review Comment:: Patient up late last night. She was jittery but with a low dose of Ativan 0.25 mg IVP she fall asleep but not until late night. She is still somnolent this morning but not confused. She has no new complaints. He labs are fairly unremarkable. - Patient Data Vitals - most recent: Last Vital Signs Temp 36.5 C 01/12/17 00:07 Pulse 87 01/12/17 08:43 Resp 12 01/12/17 00:07 BP 159/75 H 01/12/17 08:45 Pulse Ox 92 L 01/12/17 06:14 Weight - most recent: 95.935 kg I&O - last 24 hours: Intake & Output 01/11/17 01/12/17 01/12/17 22:59 06:59 14:59 Intake Total 870 898 Output Total 800 1200 Balance 70 -302 Lab Results last 24 hrs: Laboratory Results - last 24 hr 01/11/17 01/12/17 01/12/17 Range/Units 20:30 05:13 05:13 WBC 5.81 (3.98-10.04) K/mm3 RBC 3.54 L (3.98-5.22) M/mm3 Hgb 10.4 L (11.2-15.7) gm/L Hct 32.9 L (34.1-44.9) % MCV 92.9 (79.4-94.8) fl MCH 29.4 (25.6-32.2) pg MCHC 31.6 L (32.2-35.5) g/dl RDW Std Deviation 49.5 H (36.4-46.3) fL Plt Count 198 (182-369) K/mm3 MPV 11.4 (9.4-12.3) fl Neut % (Auto) 69.5 (34.0-71.1) % Lymph % (Auto) 17.0 L (19.3-51.7) % Curry % (Auto) 11.4 (4.7-12.5) % Eos % (Auto) 1.5 (0.7-5.8) Baso % (Auto) 0.3 (0.1-1.2) % Neut # (Auto) 4.03 (1.56-6.13) K/mm3 Lymph # (Auto) 0.99 L (1.18-3.74) K/mm3 Curry # (Auto) 0.66 H (0.24-0.36) K/mm3 Eos # (Auto) 0.09 (0.04-0.36) K/mm3 Baso # (Auto) 0.02 (0.01-0.08) K/mm3 Sodium 134 L (136-145) mEq/L Potassium 4.4 (3.5-5.1) mEq/L Chloride 100 (98-107) mEq/L Carbon Dioxide 27 (21-32) mEq/L Anion Gap 11.4 (5-15) BUN 13 (7-18) mg/dL Creatinine 1.5 H (0.55-1.02) mg/dL Est Cr Clr Drug Dosing 20.41 mL/min Estimated GFR (MDRD) 33 (>60) mL/min BUN/Creatinine Ratio 8.7 L (14-18) Glucose 135 H (83-115) mg/dL POC Glucose 130 H (83-110) mg/dL Calcium 9.0 (8.5-10.1) mg/dL Magnesium 2.2 (1.8-2.4) mg/dl C-Reactive Protein 6.6 H* (<1.0) mg/dL [place] Results last 24 hrs: Microbiology 01/10/17 07:07 Aerobic Blood Culture - Preliminary Blood - Venous NO GROWTH AFTER 2 DAYS Anaerobic Blood Culture - Preliminary NO GROWTH AFTER 2 DAYS 01/10/17 07:38 Aerobic Blood Culture - Preliminary Blood - Venous - Lab Draw NO GROWTH AFTER 2 DAYS Anaerobic Blood Culture - Preliminary NO GROWTH AFTER 2 DAYS Med Orders - Current: Current Medications Acetaminophen (Tylenol) 650 mg PO Q4H PRN PRN Reason: Pain (Mild 1-3)/fever Last Admin: 01/12/17 02:10 Dose: 650 mg Albuterol/Ipratropium (Duoneb 3.0-0.5 Mg/3 Ml) 3 ml NEB Q4H PRN PRN Reason: Shortness Of Breath/wheezing Albuterol/Ipratropium (Duoneb 3.0-0.5 Mg/3 Ml) 3 ml NEB QIDRT [facility] Last Admin: 01/12/17 06:14 Dose: 3 ml Amlodipine Besylate (Norvasc) 10 mg PO DAILY [facility] Last Admin: 01/12/17 08:42 Dose: 10 mg Aspirin (Aspirin) 162 mg PO DAILY [facility] Last Admin: 01/12/17 08:42 Dose: 162 mg Bisacodyl (Dulcolax) 5 mg PO DAILY PRN PRN Reason: Constipation Cholecalciferol (Vitamin D3) 1,000 units PO DAILY [facility] Last Admin: 01/12/17 08:42 Dose: 1,000 units Docusate Sodium (Colace) 200 mg PO BID [facility] Last Admin: 01/12/17 08:41 Dose: 200 mg Famotidine (Pepcid) 20 mg PO DAILY [facility] Last Admin: 01/12/17 08:43 Dose: 20 mg Fluconazole (Diflucan) 100 mg PO DAILY [facility] Last Admin: 01/12/17 08:43 Dose: 100 mg Heparin Sodium (Porcine) (Heparin Sodium) 5,000 units SUBCUT Q8H [facility] Last Admin: 01/12/17 08:45 Dose: 5,000 units Hydralazine HCl (Apresoline) 20 mg IVPUSH Q4H PRN PRN Reason: Hypertension Levofloxacin/Dextrose 250 mg/ (Premix) 50 mls @ 50 mls/hr IV Q24H [facility] Last Admin: 01/11/17 22:24 Dose: 50 mls/hr Levothyroxine Sodium (Synthroid) 50 mcg PO ACBREAKFAST [facility] Last Admin: 01/12/17 06:30 Dose: 50 mcg Lorazepam (Ativan) 0.5 mg IVPUSH BEDTIME PRN PRN Reason: sleep Last Admin: 01/11/17 22:27 Dose: 0.5 mg Losartan Potassium (Cozaar) 100 mg PO DAILY [facility] Last Admin: 01/12/17 08:45 Dose: 100 mg Losartan Potassium (Cozaar) 50 mg PO DAILY [facility] Last Admin: 01/12/17 08:41 Dose: 50 mg Magnesium Sulfate (Pharmacy To Dose - Magnesium Replacement) 0 dose .XX ASDIRECTED PRN PRN Reason: RX to Dose Metoprolol Succinate (Toprol Xl) 25 mg PO DAILY [facility] Last Admin: 01/12/17 08:43 Dose: 25 mg Metoprolol Tartrate (Lopressor) 5 mg IVPUSH Q4H PRN PRN Reason: Tachycardia Modafinil (Provigil) 200 mg PO DAILY [facility] Last Admin: 01/11/17 10:40 Dose: 200 mg Miconazole 2% Vaginal Cream *Pt Own Med* 0 each TOP BID [facility] Last Admin: 01/11/17 22:00 Dose: 1 each Ondansetron HCl (Zofran) 4 mg IV Q6H PRN PRN Reason: Nausea/Vomiting Pantoprazole Sodium (Protonix) 40 mg PO ACBREAKFAST [facility] Last Admin: 01/12/17 06:30 Dose: 40 mg Polyethylene Glycol (Miralax) 17 gm PO BID PRN PRN Reason: Constipation Potassium Chloride (Pharmacy To Dose - Potassium Replacement) 0 dose .XX ASDIRECTED PRN PRN Reason: RX TO DOSE Saccharomyces Boulardii (Florastor) 250 mg PO DAILY [facility] Last Admin: 01/12/17 08:45 Dose: 250 mg Senna/Docusate Sodium (Senna Plus) 1 tab PO BID PRN PRN Reason: Constipation Simvastatin (Zocor) 20 mg PO BEDTIME [facility] Last Admin: 01/11/17 21:30 Dose: 20 mg Sodium Chloride (Saline Flush) 10 ml FLUSH ASDIRECTED PRN PRN Reason: Keep Vein Open Sucralfate (Carafate) 1 gm PO QIDACANDBED [facility] Last Admin: 01/12/17 06:31 Dose: 1 gm Thiamine HCl (Vitamin B-1) 100 mg PO BEDTIME [facility] Last Admin: 01/11/17 21:16 Dose: 100 mg Vit A/Vit C/Vit E/Selen/Cu/Zn/Lutei (Icaps Mv) 1 tab PO DAILY [facility] Last Admin: 01/12/17 08:42 Dose: 1 tab Discontinued Medications Hydrocodone Bitart/Acetaminophen ([place] 325-5 Mg) 1 tab PO Q4H PRN PRN Reason: Pain (moderate 4-6) Aspirin (Aspirin) 81 mg PO DAILY [facility] Ceftriaxone Sodium (Rocephin) 1,000 mg IVPUSH Q24H [facility] Dicyclomine HCl (Bentyl) 20 mg PO Q6HR [facility] Last Admin: 01/10/17 06:19 Dose: 20 mg Docusate Sodium (Colace) 100 mg PO BID PRN PRN Reason: Constipation Hydromorphone HCl (Dilaudid) 0.25 mg IVPUSH Q2H PRN PRN Reason: Pain (severe 7-10) Sodium Chloride (Normal Saline) 500 mls @ 999 mls/hr IV .BOLUS ONE Stop: 01/09/17 16:24 Last Admin: 01/09/17 15:57 Dose: 999 mls/hr Ceftriaxone Sodium 1 gm/ (Sodium Chloride) 100 mls @ 200 mls/hr IV ONETIME ONE Stop: 01/09/17 17:25 Last Admin: 01/09/17 17:02 Dose: 200 mls/hr Promethazine HCl 12.5 mg/ (Sodium Chloride) 50.5 mls @ 100 mls/hr IV Q6H PRN PRN Reason: Nausea/Vomiting Dextrose/Sodium Chloride (Dextrose 5%-1/2 Ns) 1,000 mls @ 75 mls/hr IV ASDIRECTED [facility] Last Admin: 01/09/17 18:59 Dose: 75 mls/hr Ceftriaxone Sodium 1 gm/ (Sodium Chloride) 100 mls @ 200 mls/hr IV Q24H [facility] Thiamine HCl 200 mg/ Sodium (Chloride) 102 mls @ 50 mls/hr IV ONETIME ONE Stop: 01/09/17 23:47 Last Admin: 01/09/17 21:50 Dose: 50 mls/hr Sodium Chloride (Normal Saline) Confirm Administered Dose 100 mls @ as directed .ROUTE .STK-MED ONE Stop: 01/09/17 21:39 Last Admin: 01/09/17 21:50 Dose: Not Given Magnesium Sulfate 2 gm/ Premix 50 mls @ 25 mls/hr IV ONETIME ONE Stop: 01/10/17 10:20 Last Admin: 01/10/17 09:49 Dose: Not Given Dextrose/Sodium Chloride (Dextrose 5%-1/2 Ns) 1,000 mls @ 50 mls/hr IV ASDIRECTED [facility] Last Admin: 01/11/17 06:31 Dose: 50 mls/hr Ceftriaxone Sodium 1 gm/ (Sodium Chloride) 100 mls @ 200 mls/hr IV Q24H [facility] Last Admin: 01/11/17 17:10 Dose: 200 mls/hr Magnesium Sulfate 2 gm/ Premix 50 mls @ 50 mls/hr IV ONETIME ONE Stop: 01/11/17 09:59 Last Admin: 01/11/17 11:20 Dose: 50 mls/hr Lorazepam (Ativan) 0.25 mg IV Q6H PRN PRN Reason: Anxiety Last Admin: 01/09/17 21:50 Dose: 0.25 mg Lorazepam (Ativan) 1 mg IVPUSH Q4H PRN PRN Reason: Seizures Magnesium Oxide (Magnesium Oxide) 400 mg PO ONETIME ONE Stop: 01/10/17 11:01 Last Admin: 01/10/17 11:54 Dose: Not Given Miconazole (Micatin 2% Crm) 0 gm TOP BID [facility] Last Admin: 01/11/17 22:01 Dose: Not Given Modafinil (Provigil) 100 mg PO DAILY [facility] Last Admin: 01/11/17 11:09 Dose: Not Given Oral Electrolytes (Thermotabs) 1 each PO TID [facility] Stop: 01/11/17 21:01 Last Admin: 01/11/17 21:30 Dose: 1 each Estradiol [Vagifem] (10 Mcg) 0 each VAG DAILY PRN PRN Reason: atrophic vaginitis Potassium Chloride (Klor-Con M20) 40 meq PO Q4H [facility] Stop: 01/10/17 13:01 Last Admin: 01/10/17 12:24 Dose: 40 meq Senna/Docusate Sodium (Senna Plus) 1 tab PO BID PRN PRN Reason: Constipation Temazepam (Restoril) 7.5 mg PO BEDTIME PRN PRN Reason: Sleep Thiamine HCl (Vitamin B-1) 200 mg IV ONETIME ONE Stop: 01/09/17 17:39 Last Admin: 01/09/17 18:58 Dose: Not Given Tramadol HCl (Ultram) 50 mg PO Q6H PRN PRN Reason: Pain - Exam General: cooperative, no acute distress, lethargic, other (Morbidly Obese) HEENT: Pupils equal, Pupils reactive, Mucous membr. moist/pink Neck: supple, trachea midline, no JVD, no thyromegaly, other (short and thick) Lungs: Normal respiratory effort, Decreased breath sounds Cardiovascular: Regular Rate, Regular Rhythm Abdomen: bowel sounds present, soft, no tenderness, no distension (Female) Exam: Deferred Back Exam: Normal Inspection, Decreased Range of Motion Extremities: normal pulses, no tenderness/swelling, no clubbing, no cyanosis, no calf tenderness Peripheral Pulses: 2+: Dorsalis Pedis (L), Dorsalis Pedis (R) Skin: warm, dry, intact Neurological: no new focal deficit Psy/Mental Status: normal affect, normal mood - Problem List Review Problem List Initiated/Reviewed/Updated: Yes - My Orders Last 24 Hours: My Active Orders 01/11/17 10:30 Modafinil [Provigil] 200 mg PO DAILY 01/11/17 11:57 Sodium Chloride 0.9% [Saline Flush] 10 ml FLUSH ASDIRECTED PRN Saline Lock Insert [OM.PC] Routine 01/11/17 18:38 UNDER CUTTING MACHINE OPERATOR Evaluation and Treatment [CONS] Routine 01/11/17 20:00 Levofloxacin/Dextrose 5%-Water [Levaquin in D5W 250 MG/50 ML] 250 mg Premix Bag 1 bag IV Q24H 01/11/17 21:45 Non-Formulary Medication [NF Drug] 0 each TOP BID 01/11/17 22:02 LORazepam [Ativan] 0.5 mg IVPUSH BEDTIME PRN 01/12/17 09:00 Saccharomyces Boulardii [Florastor] 250 mg PO DAILY - Plan Plan:: Assessment/Plan: Acute: AMS - Likely 2/2 toxic, metabolic encephalopathy vs TIA; also untreated 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 - Narcotics and Benzos all discontinued; Gabapentin, Ultram and Trazodone also held - She somnolent this am - Risk Factors: UTI, Electrolyte Abnormality and Meds: Gabapentin, Ultram and Trazodone in setting of acute on chronic kidney disease - Supportive Care - She responded well with provigil yesterday but may have caused her jittery last night; will cut down her dose to 100 mg po daily - I felt at this time, this is more related to somnolence from 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 - She needs sleep study to she can have her CPAP Acute on Chronic UTI - UA impressive for UTI - Risk Factors: Hx/o Interstitial Cystitis, Urinary Frequency, Incontinence, Restricted Mobility and Chronic Under Pad Use - She complains of bladder cramps: consider vaginitis?, will refer to see a specialist after discharge - UA of for E. faecalis sensitive to levaquin - D/c'd IV Rocephin last night - Continue Levaquin 250 mg IV Daily Hyponatremia - Na is 127--> 134, Continues to improve - Likely from over diuresis - Salt tablet TID x3 3 doses only - D/c PRN Ativan for abortive seizure - Will monitor HTN - Labile blood pressure but mostly controlled - BP on admission was 123/108 mmHg - Untreated KELLEE is a significant contributory to this Probable KELLEE - Untreated - Likely contributing to mental status fluctuations and not controlled blood pressure - She needs to get the sleep study done, this was recommended last admission High Fall Risk Resolved: At Baseline CKD Stage 3 - Cr 2.3 and GFR 20--improved today to 2.0 and 24 respectively; Cr now is 1.5 - Likely from over diuresis and UTI - Family suspected she is getting too much lasix from thr facility TIA - Has risk factors for it: Hx/o Malignant HTN, 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 No regional wall motion abnormalities. Moderate restrictive left ventricular hypertrophy, severely dilated left atrium , moderate aortic valve stenosis, mild to moderate mitral valve regurgitation , moderate mitral stenosis and severe mitral annular calcification - UNDER CUTTING MACHINE OPERATOR for swallow eval if not available may do nursing bedside swallow eval; will also request cog eval - Continue 162 mg ASA po daily Chronic: Hx CHF HLD Constipation DM2 GERD Hx/o Dysphagia and PUD OA/DJD Hypothyroidism--TSH WNL on 12/26/16 SUSIE Seborrheic Dermatitis Depression Nocturnal Hypoxia on 2.5 L NC at night Diverticulosis Hx/o PE, IBS Interstitial Cystitis and Rheumatic Fever Obesity with BMI 48 Plan: She is remains fairly stable Routine AM Labs Continue PT/OT Avoid all meds with sedating, hypnotic and anticholinergic effects if all possible Aspiration/Fall Precautions SW/CM for d/c planning Additional orders as above Code status: 1 LOS anticipate > 96 hrs due to repeat admission, uti, chronic somnolence-- likely [facility] placement over holiday weekend
[2017-01-12] MEDS: Modafinil 200 MG Tab PO SCH (10:30)
[2017-01-12] MEDS ORDERED: Modafinil 200 MG Tab PO ONE (10:46)
[2017-01-12] MEDS: MICONAZOLE 2% TOP SCH (10:55)
[2017-01-12] MEDS ORDERED: Bisacodyl 10 MG Supp RECTAL ONE (14:46)
[2017-01-12] MEDS: Ondansetron 4 MG/2 ML SDV IV PRN (17:34)
[2017-01-12] MEDS: Thiamine 100 MG Tab PO SCH (19:59)
[2017-01-12] MEDS: Simvastatin 20 MG Tab PO SCH (19:59)
[2017-01-12] MEDS: Levofloxacin/Dextrose 5%-Water 250 MG in Premix Bag 1 BAG IV SCH (20:14)
[2017-01-12] MEDS: LORazepam 2 MG/ML MDV IVPUSH PRN (20:57)
[2017-01-13] MEDS: Heparin Sodium 5,000 Units/ML Vial SUBCUT SCH ×3 (04:30→20:13)
[2017-01-13] MEDS: Albuterol/Ipratropium 3.0-0.5 MG/3 ML Neb Soln NEB SCH ×4 (06:16→20:48)
[2017-01-13] MEDS: Pantoprazole 40 MG Tab.CR PO SCH (07:22)
[2017-01-13] MEDS: Levothyroxine 50 MCG Tab PO SCH (07:22)
[2017-01-13] MEDS: Sucralfate Suspension 1 GM/10 ML Cup PO SCH ×4 (07:22→21:02)
[2017-01-13] MEDS: MICONAZOLE 2% TOP SCH ×3 (07:24→20:22)
[2017-01-13] MEDS: Saccharomyces Boulardii (Probiotic) 250 MG Cap PO SCH (08:15)
[2017-01-13] MEDS: Docusate Sodium 100 MG Cap PO SCH ×2 (08:16→20:14)
[2017-01-13] MEDS: Aspirin 81 MG Tab.Chew PO SCH (08:16)
[2017-01-13] MEDS: Multivitamins with Minerals/Folic Acid/Lutein/Zeaxanth Tab PO SCH (08:16)
[2017-01-13] MEDS: Cholecalciferol (Vitamin D3) 1,000 Unit Tab PO SCH (08:16)
[2017-01-13] MEDS: Fluconazole 100 MG Tab PO SCH (08:16)
[2017-01-13] MEDS: Losartan 25 MG Tab PO SCH (08:23)
[2017-01-13] MEDS: amLODIPine 10 MG Tab PO SCH (08:23)
[2017-01-13] MEDS: Losartan 100 MG Tab PO SCH (08:23)
[2017-01-13] MEDS: Metoprolol Succinate 25 MG Tab.ER PO SCH (08:23)
--- NOTE | 2017-01-13 08:47 | PCM.PN ---
- General Info Date of Service: 01/13/17 Admission Dx/Problem (Free Text): Carlota is seen this morning, just finished ambulating with PT, sitting up in chair now eating breakfast. States no pain this moring. States no abd pain or pain in the bladder today. She continues to be pleasantly confused, orientated x 1-2 this morining. Functional Status: Reports: pain controlled, tolerating diet, ambulating, urinating. Denies: new symptoms - Review of Systems General: Reports: Weakness (generalized; much improved) HEENT: Reports: no symptoms Pulmonary: Reports: no symptoms. Denies: shortness of breath (denies), cough Cardiovascular: Denies: Chest Pain Gastrointestinal: Denies: Abdominal pain Genitourinary: Denies: dysuria, pain Musculoskeletal: Reports: no symptoms Neurological: Reports: Confusion (pleasant), Trouble Speaking. Denies: Headache Psychiatric: Reports: confusion - Patient Data Vitals - most recent: Last Vital Signs Temp 97.3 F 01/13/17 08:20 Pulse 80 01/13/17 08:23 Resp 16 01/13/17 08:20 BP 152/73 H 01/13/17 08:23 Pulse Ox 96 01/13/17 08:20 Weight - most recent: 209 lb 1.76 oz I&O - last 24 hours: Intake & Output 01/12/17 01/13/17 01/13/17 22:59 06:59 14:59 Intake Total 500 500 Output Total 1250 850 Balance -750 -350 Lab Results last 24 hrs: Laboratory Results - last 24 hr 01/12/17 01/13/17 01/13/17 Range/Units 20:41 05:53 05:53 WBC 4.09 (3.98-10.04) K/mm3 RBC 3.71 L (3.98-5.22) M/mm3 Hgb 10.9 L (11.2-15.7) gm/L Hct 34.7 (34.1-44.9) % MCV 93.5 (79.4-94.8) fl MCH 29.4 (25.6-32.2) pg MCHC 31.4 L (32.2-35.5) g/dl RDW Std Deviation 50.8 H (36.4-46.3) fL Plt Count 234 (182-369) K/mm3 MPV 10.7 (9.4-12.3) fl Neut % (Auto) 65.6 (34.0-71.1) % Lymph % (Auto) 18.8 L (19.3-51.7) % [place] % (Auto) 12.2 (4.7-12.5) % Eos % (Auto) 2.7 (0.7-5.8) Baso % (Auto) 0.5 (0.1-1.2) % Neut # (Auto) 2.68 (1.56-6.13) K/mm3 Lymph # (Auto) 0.77 L (1.18-3.74) K/mm3 [place] # (Auto) 0.50 H (0.24-0.36) K/mm3 Eos # (Auto) 0.11 (0.04-0.36) K/mm3 Baso # (Auto) 0.02 (0.01-0.08) K/mm3 Sodium 138 (136-145) mEq/L Potassium 4.1 (3.5-5.1) mEq/L Chloride 102 (98-107) mEq/L Carbon Dioxide 25 (21-32) mEq/L Anion Gap 15.1 H (5-15) BUN 9 (7-18) mg/dL Creatinine 1.4 H (0.55-1.02) mg/dL Est Cr Clr Drug Dosing 21.87 mL/min Estimated GFR (MDRD) 36 (>60) mL/min BUN/Creatinine Ratio 6.4 L (14-18) Glucose 130 H (83-115) mg/dL POC Glucose 112 H (83-110) mg/dL Calcium 9.4 (8.5-10.1) mg/dL Magnesium 1.9 (1.8-2.4) mg/dl C-Reactive Protein 4.3 H* (<1.0) mg/dL 01/13/17 Range/Units 07:43 WBC (3.98-10.04) K/mm3 RBC (3.98-5.22) M/mm3 Hgb (11.2-15.7) gm/L Hct (34.1-44.9) % MCV (79.4-94.8) fl MCH (25.6-32.2) pg MCHC (32.2-35.5) g/dl RDW Std Deviation (36.4-46.3) fL Plt Count (182-369) K/mm3 MPV (9.4-12.3) fl Neut % (Auto) (34.0-71.1) % Lymph % (Auto) (19.3-51.7) % [place] % (Auto) (4.7-12.5) % Eos % (Auto) (0.7-5.8) Baso % (Auto) (0.1-1.2) % Neut # (Auto) (1.56-6.13) K/mm3 Lymph # (Auto) (1.18-3.74) K/mm3 [place] # (Auto) (0.24-0.36) K/mm3 Eos # (Auto) (0.04-0.36) K/mm3 Baso # (Auto) (0.01-0.08) K/mm3 Sodium (136-145) mEq/L Potassium (3.5-5.1) mEq/L Chloride (98-107) mEq/L Carbon Dioxide (21-32) mEq/L Anion Gap (5-15) BUN (7-18) mg/dL Creatinine (0.55-1.02) mg/dL Est Cr Clr Drug Dosing mL/min Estimated GFR (MDRD) (>60) mL/min BUN/Creatinine Ratio (14-18) Glucose (83-115) mg/dL POC Glucose 147 H (83-110) mg/dL Calcium (8.5-10.1) mg/dL Magnesium (1.8-2.4) mg/dl C-Reactive Protein (<1.0) mg/dL [place] Results last 24 hrs: Microbiology 01/10/17 07:07 Aerobic Blood Culture - Preliminary Blood - Venous NO GROWTH AFTER 3 DAYS Anaerobic Blood Culture - Preliminary NO GROWTH AFTER 3 DAYS 01/10/17 07:38 Aerobic Blood Culture - Preliminary Blood - Venous - Lab Draw NO GROWTH AFTER 3 DAYS Anaerobic Blood Culture - Preliminary NO GROWTH AFTER 3 DAYS Med Orders - Current: Current Medications Acetaminophen (Tylenol) 650 mg PO Q4H PRN PRN Reason: Pain (Mild 1-3)/fever Last Admin: 01/12/17 19:59 Dose: 650 mg Albuterol/Ipratropium (Duoneb 3.0-0.5 Mg/3 Ml) 3 ml NEB Q4H PRN PRN Reason: Shortness Of Breath/wheezing Albuterol/Ipratropium (Duoneb 3.0-0.5 Mg/3 Ml) 3 ml NEB QIDRT [facility] Last Admin: 01/13/17 06:16 Dose: 3 ml Amlodipine Besylate (Norvasc) 10 mg PO DAILY [facility] Last Admin: 01/13/17 08:23 Dose: 10 mg Aspirin (Aspirin) 162 mg PO DAILY [facility] Last Admin: 01/13/17 08:16 Dose: 162 mg Bisacodyl (Dulcolax) 5 mg PO DAILY PRN PRN Reason: Constipation Cholecalciferol (Vitamin D3) 1,000 units PO DAILY [facility] Last Admin: 01/13/17 08:16 Dose: 1,000 units Docusate Sodium (Colace) 200 mg PO BID [facility] Last Admin: 01/13/17 08:16 Dose: 200 mg Fluconazole (Diflucan) 100 mg PO DAILY [facility] Last Admin: 01/13/17 08:16 Dose: 100 mg Heparin Sodium (Porcine) (Heparin Sodium) 5,000 units SUBCUT Q8H [facility] Hydralazine HCl (Apresoline) 20 mg IVPUSH Q4H PRN PRN Reason: Hypertension Levofloxacin/Dextrose 250 mg/ (Premix) 50 mls @ 50 mls/hr IV Q24H [facility] Last Admin: 01/12/17 20:14 Dose: 50 mls/hr Levothyroxine Sodium (Synthroid) 50 mcg PO ACBREAKFAST [facility] Last Admin: 01/13/17 07:22 Dose: 50 mcg Lorazepam (Ativan) 0.5 mg IVPUSH BEDTIME PRN PRN Reason: sleep Last Admin: 01/12/17 20:57 Dose: 0.5 mg Losartan Potassium (Cozaar) 100 mg PO DAILY [facility] Last Admin: 01/13/17 08:23 Dose: 100 mg Magnesium Sulfate (Pharmacy To Dose - Magnesium Replacement) 0 dose .XX ASDIRECTED PRN PRN Reason: RX to Dose Metoprolol Tartrate (Lopressor) 5 mg IVPUSH Q4H PRN PRN Reason: Tachycardia Metoprolol Tartrate (Lopressor) 25 mg PO Q12HR [facility] Ondansetron HCl (Zofran) 4 mg IV Q6H PRN PRN Reason: Nausea/Vomiting Last Admin: 01/12/17 17:34 Dose: 4 mg Pantoprazole Sodium (Protonix) 40 mg PO ACBREAKFAST [facility] Last Admin: 01/13/17 07:22 Dose: 40 mg Miconazole 2% Vaginal Cream *Pt Own Med* 0 each TOP BID [facility] Last Admin: 01/13/17 08:29 Dose: 1 each Polyethylene Glycol (Miralax) 17 gm PO BID PRN PRN Reason: Constipation Potassium Chloride (Pharmacy To Dose - Potassium Replacement) 0 dose .XX ASDIRECTED PRN PRN Reason: RX TO DOSE Saccharomyces Boulardii (Florastor) 250 mg PO DAILY [facility] Last Admin: 01/13/17 08:15 Dose: 250 mg Senna/Docusate Sodium (Senna Plus) 1 tab PO BID PRN PRN Reason: Constipation Simvastatin (Zocor) 20 mg PO BEDTIME [facility] Last Admin: 01/12/17 19:59 Dose: 20 mg Sodium Chloride (Saline Flush) 10 ml FLUSH ASDIRECTED PRN PRN Reason: Keep Vein Open Sucralfate (Carafate) 1 gm PO QIDACANDBED [facility] Last Admin: 01/13/17 07:22 Dose: 1 gm Thiamine HCl (Vitamin B-1) 100 mg PO BEDTIME [facility] Last Admin: 01/12/17 19:59 Dose: 100 mg Vit A/Vit C/Vit E/Selen/Cu/Zn/Lutei (Icaps Mv) 1 tab PO DAILY [facility] Last Admin: 01/13/17 08:16 Dose: 1 tab Discontinued Medications Hydrocodone Bitart/Acetaminophen ([place] 325-5 Mg) 1 tab PO Q4H PRN PRN Reason: Pain (moderate 4-6) Aspirin (Aspirin) 81 mg PO DAILY [facility] Bisacodyl (Dulcolax) 10 mg RECTAL ONETIME ONE Stop: 01/12/17 14:47 Last Admin: 01/12/17 14:53 Dose: 10 mg Ceftriaxone Sodium (Rocephin) 1,000 mg IVPUSH Q24H [facility] Dicyclomine HCl (Bentyl) 20 mg PO Q6HR [facility] Last Admin: 01/10/17 06:19 Dose: 20 mg Docusate Sodium (Colace) 100 mg PO BID PRN PRN Reason: Constipation Famotidine (Pepcid) 20 mg PO DAILY [facility] Last Admin: 01/12/17 08:43 Dose: 20 mg Heparin Sodium (Porcine) (Heparin Sodium) 5,000 units SUBCUT Q8H [facility] Last Admin: 01/13/17 04:30 Dose: 5,000 units Hydromorphone HCl (Dilaudid) 0.25 mg IVPUSH Q2H PRN PRN Reason: Pain (severe 7-10) Sodium Chloride (Normal Saline) 500 mls @ 999 mls/hr IV .BOLUS ONE Stop: 01/09/17 16:24 Last Admin: 01/09/17 15:57 Dose: 999 mls/hr Ceftriaxone Sodium 1 gm/ (Sodium Chloride) 100 mls @ 200 mls/hr IV ONETIME ONE Stop: 01/09/17 17:25 Last Admin: 01/09/17 17:02 Dose: 200 mls/hr Promethazine HCl 12.5 mg/ (Sodium Chloride) 50.5 mls @ 100 mls/hr IV Q6H PRN PRN Reason: Nausea/Vomiting Dextrose/Sodium Chloride (Dextrose 5%-1/2 Ns) 1,000 mls @ 75 mls/hr IV ASDIRECTED [facility] Last Admin: 01/09/17 18:59 Dose: 75 mls/hr Ceftriaxone Sodium 1 gm/ (Sodium Chloride) 100 mls @ 200 mls/hr IV Q24H [facility] Thiamine HCl 200 mg/ Sodium (Chloride) 102 mls @ 50 mls/hr IV ONETIME ONE Stop: 01/09/17 23:47 Last Admin: 01/09/17 21:50 Dose: 50 mls/hr Sodium Chloride (Normal Saline) Confirm Administered Dose 100 mls @ as directed .ROUTE .STK-MED ONE Stop: 01/09/17 21:39 Last Admin: 01/09/17 21:50 Dose: Not Given Magnesium Sulfate 2 gm/ Premix 50 mls @ 25 mls/hr IV ONETIME ONE Stop: 01/10/17 10:20 Last Admin: 01/10/17 09:49 Dose: Not Given Dextrose/Sodium Chloride (Dextrose 5%-1/2 Ns) 1,000 mls @ 50 mls/hr IV ASDIRECTED [facility] Last Admin: 01/11/17 06:31 Dose: 50 mls/hr Ceftriaxone Sodium 1 gm/ (Sodium Chloride) 100 mls @ 200 mls/hr IV Q24H [facility] Last Admin: 01/11/17 17:10 Dose: 200 mls/hr Magnesium Sulfate 2 gm/ Premix 50 mls @ 50 mls/hr IV ONETIME ONE Stop: 01/11/17 09:59 Last Admin: 01/11/17 11:20 Dose: 50 mls/hr Lorazepam (Ativan) 0.25 mg IV Q6H PRN PRN Reason: Anxiety Last Admin: 01/09/17 21:50 Dose: 0.25 mg Lorazepam (Ativan) 1 mg IVPUSH Q4H PRN PRN Reason: Seizures Losartan Potassium (Cozaar) 50 mg PO DAILY [facility] Last Admin: 01/13/17 08:23 Dose: 50 mg Magnesium Oxide (Magnesium Oxide) 400 mg PO ONETIME ONE Stop: 01/10/17 11:01 Last Admin: 01/10/17 11:54 Dose: Not Given Metoprolol Succinate (Toprol Xl) 25 mg PO DAILY [facility] Last Admin: 01/13/17 08:23 Dose: 25 mg Miconazole (Micatin 2% Crm) 0 gm TOP BID [facility] Last Admin: 01/11/17 22:01 Dose: Not Given Modafinil (Provigil) 100 mg PO DAILY [facility] Last Admin: 01/11/17 11:09 Dose: Not Given Modafinil (Provigil) 200 mg PO DAILY [facility] Last Admin: 01/12/17 10:30 Dose: Not Given Modafinil (Provigil) 100 mg PO DAILY [facility] Modafinil (Provigil) 100 mg PO ONETIME ONE Stop: 01/12/17 10:47 Last Admin: 01/12/17 10:52 Dose: 100 mg Miconazole 2% Vaginal Cream *Pt Own Med* 0 each TOP BID [facility] Last Admin: 01/12/17 10:55 Dose: 1 each Oral Electrolytes (Thermotabs) 1 each PO TID [facility] Stop: 01/11/17 21:01 Last Admin: 01/11/17 21:30 Dose: 1 each Estradiol [Vagifem] (10 Mcg) 0 each VAG DAILY PRN PRN Reason: atrophic vaginitis Potassium Chloride (Klor-Con M20) 40 meq PO Q4H [facility] Stop: 01/10/17 13:01 Last Admin: 01/10/17 12:24 Dose: 40 meq Senna/Docusate Sodium (Senna Plus) 1 tab PO BID PRN PRN Reason: Constipation Temazepam (Restoril) 7.5 mg PO BEDTIME PRN PRN Reason: Sleep Thiamine HCl (Vitamin B-1) 200 mg IV ONETIME ONE Stop: 01/09/17 17:39 Last Admin: 01/09/17 18:58 Dose: Not Given Tramadol HCl (Ultram) 50 mg PO Q6H PRN PRN Reason: Pain - Exam Quality Assessment: DVT prophylaxis General: alert, cooperative, no acute distress HEENT: Pupils equal, Pupils reactive, EOMI, Mucous membr. moist/pink Neck: supple Lungs: Clear to auscultation, Normal respiratory effort, Wheezing (expiratory, scattered) Cardiovascular: Regular Rate, Regular Rhythm Abdomen: bowel sounds present, soft, no tenderness, no distension (Female) Exam: Deferred Extremities: edema (1+ to ankles bilat) Peripheral Pulses: 1+: Dorsalis Pedis (L), Dorsalis Pedis (R) Neurological: other (suspect expressive aphasia; answers yes/no ?'s appropriately this morning but minimal verbalization otherwise) Psy/Mental Status: alert, normal mood (very pleasant) - Problem List & Annotations (1) Altered mental status SNOMED Code(s): 006704136 Code(s): R41.82 - ALTERED MENTAL STATUS, UNSPECIFIED Status: Acute Priority: High Current Visit: Yes Qualifiers: Altered mental status type: disorientation Qualified Code(s): R41.0 - Disorientation, unspecified (2) Urinary tract infection SNOMED Code(s): 07624271 Code(s): N39.0 - URINARY TRACT INFECTION, SITE NOT SPECIFIED Status: Acute Priority: High Current Visit: Yes Qualifiers: Urinary tract infection type: acute cystitis Hematuria presence: without hematuria Qualified Code(s): N30.00 - Acute cystitis without hematuria (3) Transient ischemic attack SNOMED Code(s): 149467450, 881032891 Code(s): G45.9 - TRANSIENT CEREBRAL ISCHEMIC ATTACK, UNSPECIFIED Status: Acute Priority: High Current Visit: Yes Qualifiers: Transient cerebral ischemia type: unspecified Qualified Code(s): G45.9 - Transient cerebral ischemic attack, unspecified (4) Acute renal failure SNOMED Code(s): 12290247 Code(s): N17.9 - ACUTE KIDNEY FAILURE, UNSPECIFIED Status: Acute Priority : High Current Visit: Yes Qualifiers: Acute renal failure type: unspecified Qualified Code(s): N17.9 - Acute kidney failure, unspecified (5) Hyponatremia SNOMED Code(s): 58909884 Code(s): E87.1 - HYPO-OSMOLALITY AND HYPONATREMIA Status: Resolved Priority: High Current Visit: Yes (6) Hypotension SNOMED Code(s): 00201809 Code(s): I95.9 - HYPOTENSION, UNSPECIFIED Status: Resolved Priority: High Current Visit: Yes Qualifiers: Hypotension type: unspecified hypotension type Qualified Code(s): I95.9 - Hypotension, unspecified - Problem List Review Problem List Initiated/Reviewed/Updated: Yes - My Orders Last 24 Hours: My Active Orders 01/13/17 09:00 Metoprolol Tartrate [Lopressor] 25 mg PO Q12HR - Plan Plan:: Assessment/Plan: Acute: AMS - Likely 2/2 toxic, metabolic encephalopathy vs TIA; also untreated 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 - Narcotics and Benzos all discontinued; Gabapentin, Ultram and Trazodone also held - Risk Factors: UTI, Electrolyte Abnormality and Meds: Gabapentin, Ultram and Trazodone in setting of acute on chronic kidney disease - Supportive Care - She responded well with provigil but may have caused insomnia; will cut down her dose to 100 mg po daily - Dr. Rainey feels this is more related to somnolence from 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 - She needs formal sleep study with CPAP titrations Acute on Chronic UTI - UA impressive for UTI - Risk Factors: Hx/o Interstitial Cystitis, Urinary Frequency, Incontinence, Restricted Mobility and Chronic Under Pad Use - She complains of bladder cramps: consider vaginitis?, will refer to see a specialist after discharge - UA of for E. faecalis sensitive to levaquin - D/c'd IV Rocephin last night - Continue Levaquin 250 mg IV Daily HTN - Labile blood pressure but mostly controlled - BP on admission was 123/108 mmHg - Untreated KELLEE is a significant contributor to this - Will adjust medications; decrease cozar, increase metoprolol to see if any changes Probable KELLEE - Untreated - Likely contributing to mental status fluctuations and uncontrolled blood pressure - She needs to get the sleep study done, this was recommended last admission , scheduled for this month High Fall Risk Resolved: At Baseline CKD Stage 3 - Cr 2.3 and GFR 20--improved today to 2.0 and 24 respectively; Cr now is 1.5 - Likely from over diuresis and UTI - Family suspected she is getting too much lasix from thr facility TIA - Has risk factors for it: Hx/o Malignant HTN, 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 No regional wall motion abnormalities. Moderate restrictive left ventricular hypertrophy, severely dilated left atrium , moderate aortic valve stenosis, mild to moderate mitral valve regurgitation , moderate mitral stenosis and severe mitral annular calcification - WATER INSPECTOR for swallow eval if not available may do nursing bedside swallow eval; will also request cog eval - Continue 162 mg ASA po daily Hyponatremia - Na is 127--> 134, Continues to improve - Likely from over diuresis - Salt tablet TID x3 3 doses only - D/c PRN Ativan for abortive seizure - Will monitor Chronic: Hx CHF HLD Constipation DM2 GERD Hx/o Dysphagia and PUD OA/DJD Hypothyroidism--TSH WNL on 12/26/16 SUSIE Seborrheic Dermatitis Depression Nocturnal Hypoxia on 2.5 L NC at night Diverticulosis Hx/o PE, IBS Interstitial Cystitis and Rheumatic Fever Obesity with BMI 48 Plan: She is remains fairly stable Routine AM Labs Continue PT/OT Avoid all meds with sedating, hypnotic and anticholinergic effects if all possible Aspiration/Fall Precautions SW/CM for d/c planning---SW working on SNF/NH placement- pending Additional orders as above Code status: 1 LOS anticipate > 96 hrs due to repeat admission, uti, chronic somnolence-- likely NH placement over holiday weekend
[2017-01-13] MEDS ORDERED: Modafinil 200 MG Tab PO SCH (09:00)
[2017-01-13] MEDS: Magnesium Oxide 400 MG Tab PO SCH ×2 (09:08→20:14)
[2017-01-13] MEDS: Acetaminophen 325 MG Tab PO PRN ×2 (10:38→20:14)
[2017-01-13] MEDS ORDERED: Simethicone 80 MG Tab.Chew PO PRN (11:17)
[2017-01-13] MEDS: Dicyclomine 10 MG Cap PO SCH ×3 (11:27→21:02)
[2017-01-13] MEDS: hydrALAZINE 20 MG/ML SDV IVPUSH PRN (19:48)
[2017-01-13] MEDS: LORazepam 2 MG/ML MDV IVPUSH PRN (20:12)
[2017-01-13] MEDS: Levofloxacin/Dextrose 5%-Water 250 MG in Premix Bag 1 BAG IV SCH (20:12)
[2017-01-13] MEDS: Simvastatin 20 MG Tab PO SCH (20:13)
[2017-01-13] MEDS: Metoprolol Tartrate 25 MG Tab PO SCH (20:13)
[2017-01-13] MEDS: Thiamine 100 MG Tab PO SCH (20:14)
[2017-01-14] MEDS: hydrALAZINE 20 MG/ML SDV IVPUSH PRN ×2 (04:20→21:37)
[2017-01-14] MEDS: Sucralfate Suspension 1 GM/10 ML Cup PO SCH ×5 (06:07→23:23)
[2017-01-14] MEDS: Levothyroxine 50 MCG Tab PO SCH (06:07)
[2017-01-14] MEDS: Dicyclomine 10 MG Cap PO SCH ×4 (06:07→20:59)
[2017-01-14] MEDS: Heparin Sodium 5,000 Units/ML Vial SUBCUT SCH ×3 (06:07→20:59)
[2017-01-14] MEDS: Pantoprazole 40 MG Tab.CR PO SCH (06:07)
[2017-01-14] MEDS: Albuterol/Ipratropium 3.0-0.5 MG/3 ML Neb Soln NEB SCH (06:40)
[2017-01-14] MEDS: Cholecalciferol (Vitamin D3) 1,000 Unit Tab PO SCH (08:19)
[2017-01-14] MEDS: Saccharomyces Boulardii (Probiotic) 250 MG Cap PO SCH (08:19)
[2017-01-14] MEDS: Aspirin 81 MG Tab.Chew PO SCH (08:19)
[2017-01-14] MEDS: Multivitamins with Minerals/Folic Acid/Lutein/Zeaxanth Tab PO SCH (08:19)
[2017-01-14] MEDS: Fluconazole 100 MG Tab PO SCH (08:20)
[2017-01-14] MEDS: Docusate Sodium 100 MG Cap PO SCH ×2 (08:20→20:59)
[2017-01-14] MEDS: amLODIPine 10 MG Tab PO SCH (08:20)
[2017-01-14] MEDS: Losartan 100 MG Tab PO SCH (08:20)
[2017-01-14] MEDS: Metoprolol Tartrate 25 MG Tab PO SCH ×2 (08:20→20:59)
[2017-01-14] MEDS: MICONAZOLE 2% TOP SCH ×2 (08:22→21:00)
--- NOTE | 2017-01-14 11:06 | PCM.PN ---
- General Info Date of Service: 01/14/17 Admission Dx/Problem (Free Text): AMS, TIA and UTI Subjective Update: Follow Up Functional Status: Reports: pain controlled, tolerating diet, ambulating, urinating, new symptoms (feeling cold) - Review of Systems General: Denies: Fever, Fatigue, Malaise, Chills HEENT: Reports: no symptoms Pulmonary: Denies: shortness of breath Cardiovascular: Denies: Chest Pain, Palpitations, Dyspnea on Exertion, Lightheadedness Gastrointestinal: Denies: Abdominal pain, Nausea, Vomiting Genitourinary: Reports: no symptoms Musculoskeletal: Reports: no symptoms Skin: Reports: no symptoms Neurological: Reports: Gait Disturbance. Denies: Confusion, Pre-Existing Deficit, Difficulty Walking, Weakness Psychiatric: Denies: depression, anxiety, agitation Systems Review Comment:: No overnight or acute issues. She slept well. She has no complaints. - Patient Data Vitals - most recent: Last Vital Signs Temp 36.7 C 01/14/17 07:58 Pulse 68 01/14/17 08:20 Resp 18 01/14/17 07:58 BP 135/64 01/14/17 08:20 Pulse Ox 96 01/14/17 07:58 Weight - most recent: 93.259 kg I&O - last 24 hours: Intake & Output 01/13/17 01/14/17 01/14/17 22:59 06:59 14:59 Intake Total 500 550 Output Total 950 1150 Balance -450 -600 Lab Results last 24 hrs: Laboratory Results - last 24 hr 01/13/17 01/14/17 01/14/17 Range/Units 21:07 05:48 05:48 WBC 3.86 L (3.98-10.04) K/mm3 RBC 3.95 L (3.98-5.22) M/mm3 Hgb 11.5 (11.2-15.7) gm/L Hct 36.7 (34.1-44.9) % MCV 92.9 (79.4-94.8) fl MCH 29.1 (25.6-32.2) pg MCHC 31.3 L (32.2-35.5) g/dl RDW Std Deviation 50.8 H (36.4-46.3) fL Plt Count 240 (182-369) K/mm3 MPV 10.4 (9.4-12.3) fl Neut % (Auto) 64.2 (34.0-71.1) % Lymph % (Auto) 22.0 (19.3-51.7) % [place] % (Auto) 10.9 (4.7-12.5) % Eos % (Auto) 2.1 (0.7-5.8) Baso % (Auto) 0.3 (0.1-1.2) % Neut # (Auto) 2.48 (1.56-6.13) K/mm3 Lymph # (Auto) 0.85 L (1.18-3.74) K/mm3 [place] # (Auto) 0.42 H (0.24-0.36) K/mm3 Eos # (Auto) 0.08 (0.04-0.36) K/mm3 Baso # (Auto) 0.01 (0.01-0.08) K/mm3 Sodium 138 (136-145) mEq/L Potassium 3.9 (3.5-5.1) mEq/L Chloride 104 (98-107) mEq/L Carbon Dioxide 27 (21-32) mEq/L Anion Gap 10.9 (5-15) BUN 6 L (7-18) mg/dL Creatinine 1.4 H (0.55-1.02) mg/dL Est Cr Clr Drug Dosing 21.87 mL/min Estimated GFR (MDRD) 36 (>60) mL/min BUN/Creatinine Ratio 4.3 L (14-18) Glucose 135 H (83-115) mg/dL POC Glucose 133 H (83-110) mg/dL Calcium 9.2 (8.5-10.1) mg/dL Magnesium 1.9 (1.8-2.4) mg/dl C-Reactive Protein 2.3 H* (<1.0) mg/dL 01/14/17 Range/Units 06:27 WBC (3.98-10.04) K/mm3 RBC (3.98-5.22) M/mm3 Hgb (11.2-15.7) gm/L Hct (34.1-44.9) % MCV (79.4-94.8) fl MCH (25.6-32.2) pg MCHC (32.2-35.5) g/dl RDW Std Deviation (36.4-46.3) fL Plt Count (182-369) K/mm3 MPV (9.4-12.3) fl Neut % (Auto) (34.0-71.1) % Lymph % (Auto) (19.3-51.7) % [place] % (Auto) (4.7-12.5) % Eos % (Auto) (0.7-5.8) Baso % (Auto) (0.1-1.2) % Neut # (Auto) (1.56-6.13) K/mm3 Lymph # (Auto) (1.18-3.74) K/mm3 [place] # (Auto) (0.24-0.36) K/mm3 Eos # (Auto) (0.04-0.36) K/mm3 Baso # (Auto) (0.01-0.08) K/mm3 Sodium (136-145) mEq/L Potassium (3.5-5.1) mEq/L Chloride (98-107) mEq/L Carbon Dioxide (21-32) mEq/L Anion Gap (5-15) BUN (7-18) mg/dL Creatinine (0.55-1.02) mg/dL Est Cr Clr Drug Dosing mL/min Estimated GFR (MDRD) (>60) mL/min BUN/Creatinine Ratio (14-18) Glucose (83-115) mg/dL POC Glucose 127 H (83-110) mg/dL Calcium (8.5-10.1) mg/dL Magnesium (1.8-2.4) mg/dl C-Reactive Protein (<1.0) mg/dL [place] Results last 24 hrs: Microbiology 01/10/17 07:07 Aerobic Blood Culture - Preliminary Blood - Venous NO GROWTH AFTER 4 DAYS Anaerobic Blood Culture - Preliminary NO GROWTH AFTER 4 DAYS 01/10/17 07:38 Aerobic Blood Culture - Preliminary Blood - Venous - Lab Draw NO GROWTH AFTER 4 DAYS Anaerobic Blood Culture - Preliminary NO GROWTH AFTER 4 DAYS Med Orders - Current: Current Medications Acetaminophen (Tylenol) 650 mg PO Q4H PRN PRN Reason: Pain (Mild 1-3)/fever Last Admin: 01/13/17 20:14 Dose: 650 mg Albuterol/Ipratropium (Duoneb 3.0-0.5 Mg/3 Ml) 3 ml NEB Q4H PRN PRN Reason: Shortness Of Breath/wheezing Amlodipine Besylate (Norvasc) 10 mg PO DAILY [facility] Last Admin: 01/14/17 08:20 Dose: 10 mg Aspirin (Aspirin) 162 mg PO DAILY [facility] Last Admin: 01/14/17 08:19 Dose: 162 mg Bisacodyl (Dulcolax) 5 mg PO DAILY PRN PRN Reason: Constipation Cholecalciferol (Vitamin D3) 1,000 units PO DAILY [facility] Last Admin: 01/14/17 08:19 Dose: 1,000 units Dicyclomine HCl (Bentyl) 10 mg PO QIDACANDBED [facility] Last Admin: 01/14/17 06:07 Dose: 10 mg Docusate Sodium (Colace) 200 mg PO BID [facility] Last Admin: 01/14/17 08:20 Dose: 200 mg Fluconazole (Diflucan) 100 mg PO DAILY [facility] Last Admin: 01/14/17 08:20 Dose: 100 mg Heparin Sodium (Porcine) (Heparin Sodium) 5,000 units SUBCUT Q8H [facility] Last Admin: 01/14/17 06:07 Dose: 5,000 units Hydralazine HCl (Apresoline) 20 mg IVPUSH Q4H PRN PRN Reason: Hypertension Last Admin: 01/14/17 04:20 Dose: 20 mg Levofloxacin/Dextrose 250 mg/ (Premix) 50 mls @ 50 mls/hr IV Q24H [facility] Last Admin: 01/13/17 20:12 Dose: 50 mls/hr Levothyroxine Sodium (Synthroid) 50 mcg PO ACBREAKFAST [facility] Last Admin: 01/14/17 06:07 Dose: 50 mcg Lorazepam (Ativan) 0.5 mg IVPUSH Q4H PRN PRN Reason: Anxiety Last Admin: 01/13/17 20:12 Dose: 0.5 mg Losartan Potassium (Cozaar) 100 mg PO DAILY [facility] Last Admin: 01/14/17 08:20 Dose: 100 mg Magnesium Sulfate (Pharmacy To Dose - Magnesium Replacement) 0 dose .XX ASDIRECTED PRN PRN Reason: RX to Dose Metoprolol Tartrate (Lopressor) 5 mg IVPUSH Q4H PRN PRN Reason: Tachycardia Metoprolol Tartrate (Lopressor) 25 mg PO Q12HR [facility] Last Admin: 01/14/17 08:20 Dose: 25 mg Ondansetron HCl (Zofran) 4 mg IV Q6H PRN PRN Reason: Nausea/Vomiting Last Admin: 01/12/17 17:34 Dose: 4 mg Pantoprazole Sodium (Protonix) 40 mg PO ACBREAKFAST [facility] Last Admin: 01/14/17 06:07 Dose: 40 mg Miconazole 2% Vaginal Cream *Pt Own Med* 0 each TOP BID [facility] Last Admin: 01/14/17 08:22 Dose: 1 each Polyethylene Glycol (Miralax) 17 gm PO BID PRN PRN Reason: Constipation Potassium Chloride (Pharmacy To Dose - Potassium Replacement) 0 dose .XX ASDIRECTED PRN PRN Reason: RX TO DOSE Saccharomyces Boulardii (Florastor) 250 mg PO DAILY [facility] Last Admin: 01/14/17 08:19 Dose: 250 mg Senna/Docusate Sodium (Senna Plus) 1 tab PO BID PRN PRN Reason: Constipation Simethicone (Simethicone) 80 mg PO Q4H PRN PRN Reason: gas/abd pain Last Admin: 01/13/17 11:27 Dose: 80 mg Simvastatin (Zocor) 20 mg PO BEDTIME [facility] Last Admin: 01/13/17 20:13 Dose: 20 mg Sodium Chloride (Saline Flush) 10 ml FLUSH ASDIRECTED PRN PRN Reason: Keep Vein Open Sucralfate (Carafate) 1 gm PO QIDACANDBED [facility] Last Admin: 01/14/17 06:07 Dose: 1 gm Thiamine HCl (Vitamin B-1) 100 mg PO BEDTIME [facility] Last Admin: 01/13/17 20:14 Dose: 100 mg Vit A/Vit C/Vit E/Selen/Cu/Zn/Lutei (Icaps Mv) 1 tab PO DAILY [facility] Last Admin: 01/14/17 08:19 Dose: 1 tab Discontinued Medications Hydrocodone Bitart/Acetaminophen ([place] 325-5 Mg) 1 tab PO Q4H PRN PRN Reason: Pain (moderate 4-6) Albuterol/Ipratropium (Duoneb 3.0-0.5 Mg/3 Ml) 3 ml NEB QIDRT [facility] Last Admin: 01/14/17 06:40 Dose: 3 ml Aspirin (Aspirin) 81 mg PO DAILY [facility] Bisacodyl (Dulcolax) 10 mg RECTAL ONETIME ONE Stop: 01/12/17 14:47 Last Admin: 01/12/17 14:53 Dose: 10 mg Ceftriaxone Sodium (Rocephin) 1,000 mg IVPUSH Q24H [facility] Dicyclomine HCl (Bentyl) 20 mg PO Q6HR [facility] Last Admin: 01/10/17 06:19 Dose: 20 mg Docusate Sodium (Colace) 100 mg PO BID PRN PRN Reason: Constipation Famotidine (Pepcid) 20 mg PO DAILY [facility] Last Admin: 01/12/17 08:43 Dose: 20 mg Heparin Sodium (Porcine) (Heparin Sodium) 5,000 units SUBCUT Q8H [facility] Last Admin: 01/13/17 04:30 Dose: 5,000 units Hydromorphone HCl (Dilaudid) 0.25 mg IVPUSH Q2H PRN PRN Reason: Pain (severe 7-10) Sodium Chloride (Normal Saline) 500 mls @ 999 mls/hr IV .BOLUS ONE Stop: 01/09/17 16:24 Last Admin: 01/09/17 15:57 Dose: 999 mls/hr Ceftriaxone Sodium 1 gm/ (Sodium Chloride) 100 mls @ 200 mls/hr IV ONETIME ONE Stop: 01/09/17 17:25 Last Admin: 01/09/17 17:02 Dose: 200 mls/hr Promethazine HCl 12.5 mg/ (Sodium Chloride) 50.5 mls @ 100 mls/hr IV Q6H PRN PRN Reason: Nausea/Vomiting Dextrose/Sodium Chloride (Dextrose 5%-1/2 Ns) 1,000 mls @ 75 mls/hr IV ASDIRECTED [facility] Last Admin: 01/09/17 18:59 Dose: 75 mls/hr Ceftriaxone Sodium 1 gm/ (Sodium Chloride) 100 mls @ 200 mls/hr IV Q24H [facility] Thiamine HCl 200 mg/ Sodium (Chloride) 102 mls @ 50 mls/hr IV ONETIME ONE Stop: 01/09/17 23:47 Last Admin: 01/09/17 21:50 Dose: 50 mls/hr Sodium Chloride (Normal Saline) Confirm Administered Dose 100 mls @ as directed .ROUTE .STK-MED ONE Stop: 01/09/17 21:39 Last Admin: 01/09/17 21:50 Dose: Not Given Magnesium Sulfate 2 gm/ Premix 50 mls @ 25 mls/hr IV ONETIME ONE Stop: 01/10/17 10:20 Last Admin: 01/10/17 09:49 Dose: Not Given Dextrose/Sodium Chloride (Dextrose 5%-1/2 Ns) 1,000 mls @ 50 mls/hr IV ASDIRECTED [facility] Last Admin: 01/11/17 06:31 Dose: 50 mls/hr Ceftriaxone Sodium 1 gm/ (Sodium Chloride) 100 mls @ 200 mls/hr IV Q24H [facility] Last Admin: 01/11/17 17:10 Dose: 200 mls/hr Magnesium Sulfate 2 gm/ Premix 50 mls @ 50 mls/hr IV ONETIME ONE Stop: 01/11/17 09:59 Last Admin: 01/11/17 11:20 Dose: 50 mls/hr Lorazepam (Ativan) 0.25 mg IV Q6H PRN PRN Reason: Anxiety Last Admin: 01/09/17 21:50 Dose: 0.25 mg Lorazepam (Ativan) 1 mg IVPUSH Q4H PRN PRN Reason: Seizures Lorazepam (Ativan) 0.5 mg IVPUSH BEDTIME PRN PRN Reason: sleep Last Admin: 01/12/17 20:57 Dose: 0.5 mg Losartan Potassium (Cozaar) 50 mg PO DAILY [facility] Last Admin: 01/13/17 08:23 Dose: 50 mg Magnesium Oxide (Magnesium Oxide) 400 mg PO ONETIME ONE Stop: 01/10/17 11:01 Last Admin: 01/10/17 11:54 Dose: Not Given Magnesium Oxide (Magnesium Oxide) 400 mg PO BID [facility] Stop: 01/13/17 21:01 Last Admin: 01/13/17 20:14 Dose: 400 mg Metoprolol Succinate (Toprol Xl) 25 mg PO DAILY [facility] Last Admin: 01/13/17 08:23 Dose: 25 mg Miconazole (Micatin 2% Crm) 0 gm TOP BID [facility] Last Admin: 01/11/17 22:01 Dose: Not Given Modafinil (Provigil) 100 mg PO DAILY [facility] Last Admin: 01/11/17 11:09 Dose: Not Given Modafinil (Provigil) 200 mg PO DAILY [facility] Last Admin: 01/12/17 10:30 Dose: Not Given Modafinil (Provigil) 100 mg PO DAILY [facility] Modafinil (Provigil) 100 mg PO ONETIME ONE Stop: 01/12/17 10:47 Last Admin: 01/12/17 10:52 Dose: 100 mg Miconazole 2% Vaginal Cream *Pt Own Med* 0 each TOP BID [facility] Last Admin: 01/12/17 10:55 Dose: 1 each Oral Electrolytes (Thermotabs) 1 each PO TID [facility] Stop: 01/11/17 21:01 Last Admin: 01/11/17 21:30 Dose: 1 each Estradiol [Vagifem] (10 Mcg) 0 each VAG DAILY PRN PRN Reason: atrophic vaginitis Potassium Chloride (Klor-Con M20) 40 meq PO Q4H [facility] Stop: 01/10/17 13:01 Last Admin: 01/10/17 12:24 Dose: 40 meq Senna/Docusate Sodium (Senna Plus) 1 tab PO BID PRN PRN Reason: Constipation Temazepam (Restoril) 7.5 mg PO BEDTIME PRN PRN Reason: Sleep Thiamine HCl (Vitamin B-1) 200 mg IV ONETIME ONE Stop: 01/09/17 17:39 Last Admin: 01/09/17 18:58 Dose: Not Given Tramadol HCl (Ultram) 50 mg PO Q6H PRN PRN Reason: Pain - Exam Quality Assessment: No: supplemental oxygen General: alert, cooperative, no acute distress, other (Morbidly Obese) HEENT: Pupils equal, Pupils reactive, EOMI, Mucous membr. moist/pink Neck: supple, trachea midline, no JVD, no thyromegaly Lungs: Normal respiratory effort, Decreased breath sounds Cardiovascular: Regular Rate, Regular Rhythm Abdomen: bowel sounds present, soft, no tenderness, no distension, other (Obese) (Female) Exam: Deferred Back Exam: Normal Inspection, Decreased Range of Motion Extremities: normal pulses, no tenderness/swelling, no clubbing, no cyanosis, no calf tenderness, edema (trace) Peripheral Pulses: 2+: Posterior Tibial (L), Posterior Tibial (R), Dorsalis Pedis (L), Dorsalis Pedis (R) Skin: warm, dry, intact Neurological: no new focal deficit Psy/Mental Status: alert, normal affect, normal mood - Problem List Review Problem List Initiated/Reviewed/Updated: Yes - My Orders Last 24 Hours: My Active Orders 01/13/17 12:00 Heparin Sodium 5,000 units SUBCUT Q8H 01/13/17 15:18 LORazepam [Ativan] 0.5 mg IVPUSH Q4H PRN - Plan Plan:: Assessment/Plan: Acute: AMS- Chronic Somnolence - Likely 2/2 toxic, metabolic encephalopathy vs TIA; also untreated 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 - Narcotics and Benzos all discontinued; Gabapentin, Ultram and Trazodone also held - Risk Factors: UTI, Electrolyte Abnormality and Meds: Gabapentin, Ultram and Trazodone in setting of acute on chronic kidney disease - She responds well with provigil 100 mg po daily - Dr. Rainey feels this is more related to somnolence from 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 - She needs formal sleep study with CPAP titration Acute on Chronic UTI - UA impressive for UTI - Risk Factors: Hx/o Interstitial Cystitis, Urinary Frequency, Incontinence, Restricted Mobility and Chronic Under Pad Use - She complains of bladder cramps: consider vaginitis?, will refer to see a specialist after discharge - UA of for E. faecalis sensitive to levaquin - D/c'd IV Rocephin last night - Continue Levaquin 250 mg IV Daily (Day 3 of Quinolone Abx) HTN - Now Controlled - BP on admission was 123/108 mmHg - Untreated KELLEE is a significant contributor to this - Continue adjusted BP medications: Metoprolol 25 mg po BID and Cozaar 100 mg po daily Probable Severe KELLEE - Untreated - Likely contributing to mental status fluctuations and uncontrolled blood pressure - She needs to get the sleep study done, this was recommended last admission , scheduled for this month High Fall Risk Resolved: At Baseline CKD Stage 3 - Cr 2.3 and GFR 20--improved today to 2.0 and 24 respectively; Cr now is 1.5 - Likely from over diuresis and UTI - Family suspected she is getting too much lasix from thr facility TIA - Has risk factors for it: Hx/o Malignant HTN, 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 No regional wall motion abnormalities. Moderate restrictive left ventricular hypertrophy, severely dilated left atrium , moderate aortic valve stenosis, mild to moderate mitral valve regurgitation , moderate mitral stenosis and severe mitral annular calcification - TECHNICAL DIRECTOR for swallow eval if not available may do nursing bedside swallow eval; will also request cog eval - Continue 162 mg ASA po daily Hyponatremia - Na is 127--> 134, Continues to improve - Likely from over diuresis - Salt tablet TID x3 3 doses only - D/c PRN Ativan for abortive seizure - Will monitor Chronic: Hx CHF HLD Constipation DM2 GERD Hx/o Dysphagia and PUD OA/DJD Hypothyroidism--TSH WNL on 12/26/16 SUSIE Seborrheic Dermatitis Depression Nocturnal Hypoxia on 2.5 L NC at night Diverticulosis Hx/o PE, IBS Interstitial Cystitis and Rheumatic Fever Obesity with BMI 48 Plan: She is clinically stable Routine AM Labs Continue PT/OT Avoid all meds with sedating, hypnotic and anticholinergic effects if all possible Aspiration/Fall Precautions SW/CM for d/c planning---SW working on SNF/NH placement- pending Additional orders as above Code status: 1 LOS anticipate > 96 hrs due to repeat admission, uti, chronic somnolence-- likely NH placement over holiday weekend
[2017-01-14] MEDS: Acetaminophen 325 MG Tab PO PRN ×3 (12:14→20:59)
[2017-01-14] MEDS: Thiamine 100 MG Tab PO SCH (20:59)
[2017-01-14] MEDS: Simvastatin 20 MG Tab PO SCH (20:59)
[2017-01-14] MEDS: Levofloxacin/Dextrose 5%-Water 250 MG in Premix Bag 1 BAG IV SCH (23:30)
[2017-01-14] MEDS: LORazepam 2 MG/ML MDV IVPUSH PRN (23:30)
[2017-01-15] MEDS: Heparin Sodium 5,000 Units/ML Vial SUBCUT SCH ×2 (05:38→11:02)
[2017-01-15] MEDS: Dicyclomine 10 MG Cap PO SCH ×3 (05:39→10:38)
[2017-01-15] MEDS: Levothyroxine 50 MCG Tab PO SCH (05:39)
[2017-01-15] MEDS: Sucralfate Suspension 1 GM/10 ML Cup PO SCH ×3 (05:39→10:38)
[2017-01-15] MEDS: Pantoprazole 40 MG Tab.CR PO SCH (05:39)
--- NOTE | 2017-01-15 07:19 | PCM.DCSUM1 ---
Discharge Summary - Hospital Course Brief History: This is an 81-year-old morbidly obese white female with past medical history of congestive heart failure with preserved ejection fraction of 65-70%, hypertension, hyperlipidemia, chronic abdominal pain, type 2 diabetes, iron deficiency anemia, DJD/OA, abdominal pain, chronic constipation, history of dysphagia, iron deficiency anemia, history of pulmonary embolism, history of IBS, and history of rheumatic fever, who comes in to the emergency department with complaints of altered mental status and difficulty speaking. She was admitted for AMS, TIA and UTI. - Discharge Data Discharge Date: 01/15/17 Discharge Disposition: DC/Tfer to Inpt Rehab Fac 62 Condition: Good - Discharge Diagnosis/Problem(s) (1) Altered mental status SNOMED Code(s): 283810079 ICD Code: R41.82 - ALTERED MENTAL STATUS, UNSPECIFIED Status: Chronic Priority: High Qualifiers: Altered mental status type: somnolence Qualified Code(s): R40.0 - Somnolence (2) Transient ischemic attack SNOMED Code(s): 121593776, 840592747 ICD Code: G45.9 - TRANSIENT CEREBRAL ISCHEMIC ATTACK, UNSPECIFIED Status: Resolved Priority: High Qualifiers: Transient cerebral ischemia type: unspecified Qualified Code(s): G45.9 - Transient cerebral ischemic attack, unspecified (3) Hypertension SNOMED Code(s): 02483078 ICD Code: I10 - ESSENTIAL (PRIMARY) HYPERTENSION Status: Chronic Qualifiers: Hypertension type: other secondary hypertension Qualified Code(s): I15.8 - Other secondary hypertension (4) Acute renal failure SNOMED Code(s): 33472606 ICD Code: N17.9 - ACUTE KIDNEY FAILURE, UNSPECIFIED Status: Resolved Priority: High Qualifiers: Acute renal failure type: unspecified Qualified Code(s): N17.9 - Acute kidney failure, unspecified (5) Urinary tract infection SNOMED Code(s): 08672529 ICD Code: N39.0 - URINARY TRACT INFECTION, SITE NOT SPECIFIED Status: Acute Priority: High Qualifiers: Urinary tract infection type: acute cystitis Hematuria presence: without hematuria Qualified Code(s): N30.00 - Acute cystitis without hematuria (6) Hyponatremia SNOMED Code(s): 79216141 ICD Code: E87.1 - HYPO-OSMOLALITY AND HYPONATREMIA Status: Resolved Priority: High - Patient Summary/Data Operative Procedure(s) Performed: None Complications: None Consults: Consultations 01/09/17 21:38 Consult to Dietary [Consult to Combat Engineer] [CONS] Routine 01/10/17 14:33 Consult to Speech Language Pathology [FOREST SUPERVISOR Evaluation and Treatment] [CONS] Routine 01/11/17 18:38 FOREST SUPERVISOR Evaluation and Treatment [CONS] Routine Hospital Course: Discharge Summary Per Problem List: AMS - Likely 2/2 toxic, metabolic encephalopathy vs TIA; also untreated 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 - Risk Factors: UTI, Electrolyte Abnormality and Meds: Gabapentin, Ultram and Trazodone in setting of acute on chronic kidney disease - Narcotics and Benzos all discontinued; Gabapentin, Ultram and Trazodone also held - We felt this was more related to somnolence from probable Severe KELLEE - She responded well with provigil 100 mg po daily - Patient was advised to lose weight - She needs formal sleep study with CPAP titration - Shes has been scheduled for sleep study her in [facility] - Has risk factors for it: Hx/o Malignant HTN, 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 No regional wall motion abnormalities. Moderate restrictive left ventricular hypertrophy, severely dilated left atrium , moderate aortic valve stenosis, mild to moderate mitral valve regurgitation , moderate mitral stenosis and severe mitral annular calcification - FOREST SUPERVISOR consulted for swallow and cognitive evaluation - She was given 162 mg ASA po daily - She will continue her low dose ASA Acute on CKD Stage 3 - Cr 2.3 and GFR 20 - Was due to over diuresis and UTI - Family suspected she is getting too much lasix from the facility - With adequate hydration her Cr improved to 1.2 on the day of discharge Acute on Chronic UTI - UA impressive for UTI - Risk Factors: Hx/o Interstitial Cystitis, Urinary Frequency, Incontinence, Restricted Mobility and Chronic Under Pad Use - She complained of bladder cramps: consider vaginitis?, will refer to see a specialist after discharge - UA positive for E. faecalis - She was initially treated for intravenous rocephin but once her sensitivity showed resistance, she was switched to low-dose IV Levaquin 250 mg daily - She will be discharged with oral levaquin 250 mg po daily for 3 more days to complete her antibiotic treatment - We recommend she see urology/gynecology for further eval Hyponatremia - Na was 127 from over diuresis - She improved with hydration and salt tablet supplements - Her Na on discharge was noted at 138 (normal) HTN - Was uncontrolled initially but once BP was adjusted her blood pressure improved - BP on admission was 123/108 mmHg - We felt her untreated KELLEE was main problem - We adjusted her BP medications: Metoprolol 25 mg po BID and Cozaar 100 mg po daily Probable Severe KELLEE - Untreated - We felt this was contributory if not the main reason why she had mental status fluctuations and uncontrolled blood pressure - She needed sleep study done, this was recommended last admission - She has already been scheduled for this month Chronic Somnolence/Narcolepsy - 2/2 Severe KELLEE - Improved with Provigil - She was advised to lose weight and to get a CPAP High Fall and Poly-pharmacy Risk Overall Mrs. Rodriguez has done fairly well since admission. After we tapered and discontinued some of her home medications, she slowly improved clinically. The rest of her chronic medical illness remained stable during his admission. We strongly believed that her severe untreated obstructive sleep apnea was the main reason why her overall ed was marginal. Patient was advised to keep her sleep study appointment and to follow lifestyle modifications such as regular exercise, proper diet and weight loss. She will be discharged with provigil to reduce her episode of narcolepsy. - Patient Instructions Diet: Heart Healthy Diet, Usual Diet as Tolerated, Diabetic Diet, Weight Loss Diet Activity: As Tolerated Driving: Do Not Drive Showering/Bathing: May Shower Notify Provider of: Fever, Increased Pain, Swelling and Redness, Nausea and/or Vomiting Other/Special Instructions: - Please take all medications as directed. - You are a high fall risk. - Recommed you eat proper diet, exercise regularly and lose weight. - Please keep all your outpatient appointments: Sleep Study, Urology, +/- Designer And Patternmaker and Family Doctor. - Call your doctor for any questions or concerns - Discharge Plan Prescriptions/Med Rec: LORazepam [Ativan] 0.5 mg PO BEDTIME PRN #10 tablet PRN Reason: Insomnia Levofloxacin [Levaquin] 250 mg PO Q24H #3 tablet Modafinil [Provigil] 100 mg PO DAILY #30 tablet Home Medications: Home Meds Docusate Sodium [Colace] 200 mg PO BID 09/12/14 [History] Polyethylene Glycol 3350 [MiraLAX] 17 gm PO BID PRN 02/18/15 [History] traMADol [Ultram] 50 mg PO Q6H PRN 04/29/15 [History] Cholecalciferol (Vitamin D3) [Vitamin D3] 1,000 unit PO DAILY 08/10/15 [History] Simvastatin 20 mg PO BEDTIME 08/10/15 [History] Valsartan [Diovan] 320 mg PO DAILY 08/10/15 [History] Vit C/Vit E Ac/Lut/Mineral 1 [Prosight with Lutein] 1 tab PO DAILY 08/10/15 [ History] amLODIPine Besylate [Amlodipine Besylate] 10 mg PO DAILY 08/10/15 [History] Aspirin 81 mg PO DAILY 10/19/15 [History] Levothyroxine [Synthroid] 50 mcg PO DAILY 10/19/15 [History] Dicyclomine HCl [Bentyl] 20 mg PO Q6HR 10/20/15 [History] Albuterol/Ipratropium [DuoNeb 3.0-0.5 MG/3 ML] 3 ml NEB QIDRT #1 box 01/03/17 [ Rx] metFORMIN [Glucophage] 500 mg PO BIDMEALS #60 tablet 01/03/17 [Rx] Aloe [place] Antifungal 2% Ointment 1 applic TOP BID 01/09/17 [History] Docusate Sodium/Sennosides [Senna Plus] 1 tab PO BID PRN 01/09/17 [History] Estradiol [Vagifem] 10 mcg VG DAILY PRN 01/09/17 [History] Furosemide [Lasix] 10 mg PO DAILY 01/09/17 [History] Omeprazole 40 mg PO DAILY 01/09/17 [History] Sucralfate [Carafate] 1 gm PO QIDACANDBED 01/09/17 [History] LORazepam [Ativan] 0.5 mg PO BEDTIME PRN #10 tablet 01/15/17 [Rx] Levofloxacin [Levaquin] 250 mg PO Q24H #3 tablet 01/15/17 [Rx] Metoprolol Succinate [Toprol XL] 25 mg PO BID #0 01/15/17 [Rx] Modafinil [Provigil] 100 mg PO DAILY #30 tablet 01/15/17 [Rx] Patient Handouts: Confusion, Transient Ischemic Attack, [id number], Urinary Tract Infection, Adult, [id number], Chronic Kidney Disease Referrals: Germain Schaeffer MD [Primary Care Provider] - Physician,Other [Ordering Only Provider] - 01/30/17 11:30 am (appoinment with Dr.Tewodros Peterson, urologist at [facility] on january 30 at 11:30 am (piffard time) come 15 minutes prior to the appointment to register. ) - Discharge Summary/Plan Comment DC Time >30 min.: Yes (45 mins) Discharge Summary/Plan Comment: Discharge to [facility] - General Info Date of Service: 01/15/17 Admission Dx/Problem (Free Text: AMS, TIA and UTI Subjective Update: Follow Up Functional Status: Reports: pain controlled, ambulating, urinating. Denies: new symptoms - Review of Systems General: Denies: Fever, Weakness, Fatigue, Malaise, Chills HEENT: Reports: no symptoms Pulmonary: Denies: shortness of breath Cardiovascular: Reports: Edema. Denies: Chest Pain, Palpitations, Dyspnea on Exertion Gastrointestinal: Denies: Abdominal pain, Nausea, Vomiting Genitourinary: Reports: no symptoms Musculoskeletal: Reports: no symptoms Skin: Reports: no symptoms Neurological: Reports: Gait Disturbance. Denies: Confusion, Difficulty Walking , Weakness Psychiatric: Denies: depression, anxiety, hallucinations Systems Review Comment: No overnight or acute issues. She is essentially the same as yesterday. She has no new complaints. - Patient Data Vitals - Most Recent: Last Vital Signs Temp 36.9 C 01/15/17 05:36 Pulse 73 01/15/17 05:36 Resp 12 01/15/17 05:36 BP 130/53 L 01/15/17 06:24 Pulse Ox 93 L 01/15/17 05:36 Weight - Most Recent: 92.896 kg I&O - Last 24 hours: Intake & Output 01/14/17 01/15/17 01/15/17 22:59 06:59 14:59 Intake Total 250 150 Output Total 500 300 Balance -250 -150 Lab Results - Last 24 hrs: Laboratory Results - last 24 hr 01/14/17 01/14/17 01/15/17 Range/Units 05:48 20:44 05:40 WBC (3.98-10.04) K/mm3 RBC (3.98-5.22) M/mm3 Hgb (11.2-15.7) gm/L Hct (34.1-44.9) % MCV (79.4-94.8) fl MCH (25.6-32.2) pg MCHC (32.2-35.5) g/dl RDW Std Deviation (36.4-46.3) fL Plt Count (182-369) K/mm3 MPV (9.4-12.3) fl Neut % (Auto) (34.0-71.1) % Lymph % (Auto) (19.3-51.7) % [place]osh[place] % (Auto) (4.7-12.5) % Eos % (Auto) (0.7-5.8) Baso % (Auto) (0.1-1.2) % Neut # (Auto) (1.56-6.13) K/mm3 Lymph # (Auto) (1.18-3.74) K/mm3 [place] # (Auto) (0.24-0.36) K/mm3 Eos # (Auto) (0.04-0.36) K/mm3 Baso # (Auto) (0.01-0.08) K/mm3 Sodium 138 (136-145) mEq/L Potassium 3.9 (3.5-5.1) mEq/L Chloride 104 (98-107) mEq/L Carbon Dioxide 27 (21-32) mEq/L Anion Gap 10.9 (5-15) BUN 6 L (7-18) mg/dL Creatinine 1.4 H (0.55-1.02) mg/dL Est Cr Clr Drug Dosing 21.87 mL/min Estimated GFR (MDRD) 36 (>60) mL/min BUN/Creatinine Ratio 4.3 L (14-18) Glucose 135 H (83-115) mg/dL POC Glucose 134 H 123 H (83-110) mg/dL Calcium 9.2 (8.5-10.1) mg/dL Magnesium 1.9 (1.8-2.4) mg/dl C-Reactive Protein 2.3 H* (<1.0) mg/dL 01/15/17 Range/Units 05:47 WBC 5.02 (3.98-10.04) K/mm3 RBC 4.15 (3.98-5.22) M/mm3 Hgb 12.2 (11.2-15.7) gm/L Hct 38.7 (34.1-44.9) % MCV 93.3 (79.4-94.8) fl MCH 29.4 (25.6-32.2) pg MCHC 31.5 L (32.2-35.5) g/dl RDW Std Deviation 52.1 H (36.4-46.3) fL Plt Count 279 (182-369) K/mm3 MPV 10.6 (9.4-12.3) fl Neut % (Auto) 60.7 (34.0-71.1) % Lymph % (Auto) 25.1 (19.3-51.7) % [place] % (Auto) 10.8 (4.7-12.5) % Eos % (Auto) 2.8 (0.7-5.8) Baso % (Auto) 0.2 (0.1-1.2) % Neut # (Auto) 3.05 (1.56-6.13) K/mm3 Lymph # (Auto) 1.26 (1.18-3.74) K/mm3 [place] # (Auto) 0.54 H (0.24-0.36) K/mm3 Eos # (Auto) 0.14 (0.04-0.36) K/mm3 Baso # (Auto) 0.01 (0.01-0.08) K/mm3 Sodium (136-145) mEq/L Potassium (3.5-5.1) mEq/L Chloride (98-107) mEq/L Carbon Dioxide (21-32) mEq/L Anion Gap (5-15) BUN (7-18) mg/dL Creatinine (0.55-1.02) mg/dL Est Cr Clr Drug Dosing mL/min Estimated GFR (MDRD) (>60) mL/min BUN/Creatinine Ratio (14-18) Glucose (83-115) mg/dL POC Glucose (83-110) mg/dL Calcium (8.5-10.1) mg/dL Magnesium (1.8-2.4) mg/dl C-Reactive Protein (<1.0) mg/dL TRU Results - Last 24 hrs: Microbiology 01/10/17 07:07 Aerobic Blood Culture - Preliminary Blood - Venous NO GROWTH AFTER 4 DAYS Anaerobic Blood Culture - Preliminary NO GROWTH AFTER 4 DAYS 01/10/17 07:38 Aerobic Blood Culture - Preliminary Blood - Venous - Lab Draw NO GROWTH AFTER 4 DAYS Anaerobic Blood Culture - Preliminary NO GROWTH AFTER 4 DAYS Med Orders - Current: Current Medications Acetaminophen (Tylenol) 650 mg PO Q4H PRN PRN Reason: Pain (Mild 1-3)/fever Last Admin: 01/14/17 20:59 Dose: 650 mg Albuterol/Ipratropium (Duoneb 3.0-0.5 Mg/3 Ml) 3 ml NEB Q4H PRN PRN Reason: Shortness Of Breath/wheezing Amlodipine Besylate (Norvasc) 10 mg PO DAILY [facility] Last Admin: 01/14/17 08:20 Dose: 10 mg Aspirin (Aspirin) 162 mg PO DAILY [facility] Last Admin: 01/14/17 08:19 Dose: 162 mg Bisacodyl (Dulcolax) 5 mg PO DAILY PRN PRN Reason: Constipation Last Admin: 01/14/17 21:00 Dose: 5 mg Cholecalciferol (Vitamin D3) 1,000 units PO DAILY [facility] Last Admin: 01/14/17 08:19 Dose: 1,000 units Dicyclomine HCl (Bentyl) 10 mg PO QIDACANDBED [facility] Last Admin: 01/15/17 06:06 Dose: Not Given Docusate Sodium (Colace) 200 mg PO BID [facility] Last Admin: 01/14/17 20:59 Dose: 200 mg Fluconazole (Diflucan) 100 mg PO DAILY [facility] Last Admin: 01/14/17 08:20 Dose: 100 mg Heparin Sodium (Porcine) (Heparin Sodium) 5,000 units SUBCUT Q8H [facility] Last Admin: 01/15/17 05:38 Dose: 5,000 units Hydralazine HCl (Apresoline) 20 mg IVPUSH Q4H PRN PRN Reason: Hypertension Last Admin: 01/14/17 21:37 Dose: 20 mg Levofloxacin/Dextrose 250 mg/ (Premix) 50 mls @ 50 mls/hr IV Q24H [facility] Last Admin: 01/14/17 23:30 Dose: 50 mls/hr Levothyroxine Sodium (Synthroid) 50 mcg PO ACBREAKFAST [facility] Last Admin: 01/15/17 05:39 Dose: 50 mcg Lorazepam (Ativan) 0.5 mg IVPUSH Q4H PRN PRN Reason: Anxiety Last Admin: 01/14/17 23:30 Dose: 0.5 mg Losartan Potassium (Cozaar) 100 mg PO DAILY [facility] Last Admin: 01/14/17 08:20 Dose: 100 mg Magnesium Sulfate (Pharmacy To Dose - Magnesium Replacement) 0 dose .XX ASDIRECTED PRN PRN Reason: RX to Dose Metoprolol Tartrate (Lopressor) 5 mg IVPUSH Q4H PRN PRN Reason: Tachycardia Metoprolol Tartrate (Lopressor) 25 mg PO Q12HR [facility] Last Admin: 01/14/17 20:59 Dose: 25 mg Ondansetron HCl (Zofran) 4 mg IV Q6H PRN PRN Reason: Nausea/Vomiting Last Admin: 01/12/17 17:34 Dose: 4 mg Pantoprazole Sodium (Protonix) 40 mg PO ACBREAKFAST [facility] Last Admin: 01/15/17 05:39 Dose: 40 mg Miconazole 2% Vaginal Cream *Pt Own Med* 0 each TOP BID [facility] Last Admin: 01/14/17 21:00 Dose: 1 each Polyethylene Glycol (Miralax) 17 gm PO BID PRN PRN Reason: Constipation Potassium Chloride (Pharmacy To Dose - Potassium Replacement) 0 dose .XX ASDIRECTED PRN PRN Reason: RX TO DOSE Saccharomyces Boulardii (Florastor) 250 mg PO DAILY [facility] Last Admin: 01/14/17 08:19 Dose: 250 mg Senna/Docusate Sodium (Senna Plus) 1 tab PO BID PRN PRN Reason: Constipation Simethicone (Simethicone) 80 mg PO Q4H PRN PRN Reason: gas/abd pain Last Admin: 01/13/17 11:27 Dose: 80 mg Simvastatin (Zocor) 20 mg PO BEDTIME [facility] Last Admin: 01/14/17 20:59 Dose: 20 mg Sodium Chloride (Saline Flush) 10 ml FLUSH ASDIRECTED PRN PRN Reason: Keep Vein Open Sucralfate (Carafate) 1 gm PO QIDACANDBED [facility] Last Admin: 01/15/17 06:07 Dose: Not Given Thiamine HCl (Vitamin B-1) 100 mg PO BEDTIME [facility] Last Admin: 01/14/17 20:59 Dose: 100 mg Vit A/Vit C/Vit E/Selen/Cu/Zn/Lutei (Icaps Mv) 1 tab PO DAILY [facility] Last Admin: 01/14/17 08:19 Dose: 1 tab Discontinued Medications Hydrocodone Bitart/Acetaminophen (Edison 325-5 Mg) 1 tab PO Q4H PRN PRN Reason: Pain (moderate 4-6) Albuterol/Ipratropium (Duoneb 3.0-0.5 Mg/3 Ml) 3 ml NEB QIDRT [facility] Last Admin: 01/14/17 06:40 Dose: 3 ml Aspirin (Aspirin) 81 mg PO DAILY [facility] Bisacodyl (Dulcolax) 10 mg RECTAL ONETIME ONE Stop: 01/12/17 14:47 Last Admin: 01/12/17 14:53 Dose: 10 mg Ceftriaxone Sodium (Rocephin) 1,000 mg IVPUSH Q24H [facility] Dicyclomine HCl (Bentyl) 20 mg PO Q6HR [facility] Last Admin: 01/10/17 06:19 Dose: 20 mg Docusate Sodium (Colace) 100 mg PO BID PRN PRN Reason: Constipation Famotidine (Pepcid) 20 mg PO DAILY [facility] Last Admin: 01/12/17 08:43 Dose: 20 mg Heparin Sodium (Porcine) (Heparin Sodium) 5,000 units SUBCUT Q8H [facility] Last Admin: 01/13/17 04:30 Dose: 5,000 units Hydromorphone HCl (Dilaudid) 0.25 mg IVPUSH Q2H PRN PRN Reason: Pain (severe 7-10) Sodium Chloride (Normal Saline) 500 mls @ 999 mls/hr IV .BOLUS ONE Stop: 01/09/17 16:24 Last Admin: 01/09/17 15:57 Dose: 999 mls/hr Ceftriaxone Sodium 1 gm/ (Sodium Chloride) 100 mls @ 200 mls/hr IV ONETIME ONE Stop: 01/09/17 17:25 Last Admin: 01/09/17 17:02 Dose: 200 mls/hr Promethazine HCl 12.5 mg/ (Sodium Chloride) 50.5 mls @ 100 mls/hr IV Q6H PRN PRN Reason: Nausea/Vomiting Dextrose/Sodium Chloride (Dextrose 5%-1/2 Ns) 1,000 mls @ 75 mls/hr IV ASDIRECTED [facility] Last Admin: 01/09/17 18:59 Dose: 75 mls/hr Ceftriaxone Sodium 1 gm/ (Sodium Chloride) 100 mls @ 200 mls/hr IV Q24H [facility] Thiamine HCl 200 mg/ Sodium (Chloride) 102 mls @ 50 mls/hr IV ONETIME ONE Stop: 01/09/17 23:47 Last Admin: 01/09/17 21:50 Dose: 50 mls/hr Sodium Chloride (Normal Saline) Confirm Administered Dose 100 mls @ as directed .ROUTE .STK-MED ONE Stop: 01/09/17 21:39 Last Admin: 01/09/17 21:50 Dose: Not Given Magnesium Sulfate 2 gm/ Premix 50 mls @ 25 mls/hr IV ONETIME ONE Stop: 01/10/17 10:20 Last Admin: 01/10/17 09:49 Dose: Not Given Dextrose/Sodium Chloride (Dextrose 5%-1/2 Ns) 1,000 mls @ 50 mls/hr IV ASDIRECTED [facility] Last Admin: 01/11/17 06:31 Dose: 50 mls/hr Ceftriaxone Sodium 1 gm/ (Sodium Chloride) 100 mls @ 200 mls/hr IV Q24H [facility] Last Admin: 01/11/17 17:10 Dose: 200 mls/hr Magnesium Sulfate 2 gm/ Premix 50 mls @ 50 mls/hr IV ONETIME ONE Stop: 01/11/17 09:59 Last Admin: 01/11/17 11:20 Dose: 50 mls/hr Lorazepam (Ativan) 0.25 mg IV Q6H PRN PRN Reason: Anxiety Last Admin: 01/09/17 21:50 Dose: 0.25 mg Lorazepam (Ativan) 1 mg IVPUSH Q4H PRN PRN Reason: Seizures Lorazepam (Ativan) 0.5 mg IVPUSH BEDTIME PRN PRN Reason: sleep Last Admin: 01/12/17 20:57 Dose: 0.5 mg Losartan Potassium (Cozaar) 50 mg PO DAILY [facility] Last Admin: 01/13/17 08:23 Dose: 50 mg Magnesium Oxide (Magnesium Oxide) 400 mg PO ONETIME ONE Stop: 01/10/17 11:01 Last Admin: 01/10/17 11:54 Dose: Not Given Magnesium Oxide (Magnesium Oxide) 400 mg PO BID [facility] Stop: 01/13/17 21:01 Last Admin: 01/13/17 20:14 Dose: 400 mg Metoprolol Succinate (Toprol Xl) 25 mg PO DAILY [facility] Last Admin: 01/13/17 08:23 Dose: 25 mg Miconazole (Micatin 2% Crm) 0 gm TOP BID [facility] Last Admin: 01/11/17 22:01 Dose: Not Given Modafinil (Provigil) 100 mg PO DAILY [facility] Last Admin: 01/11/17 11:09 Dose: Not Given Modafinil (Provigil) 200 mg PO DAILY [facility] Last Admin: 01/12/17 10:30 Dose: Not Given Modafinil (Provigil) 100 mg PO DAILY [facility] Modafinil (Provigil) 100 mg PO ONETIME ONE Stop: 01/12/17 10:47 Last Admin: 01/12/17 10:52 Dose: 100 mg Miconazole 2% Vaginal Cream *Pt Own Med* 0 each TOP BID [facility] Last Admin: 01/12/17 10:55 Dose: 1 each Oral Electrolytes (Thermotabs) 1 each PO TID [facility] Stop: 01/11/17 21:01 Last Admin: 01/11/17 21:30 Dose: 1 each Estradiol [Vagifem] (10 Mcg) 0 each VAG DAILY PRN PRN Reason: atrophic vaginitis Potassium Chloride (Klor-Con M20) 40 meq PO Q4H [facility] Stop: 01/10/17 13:01 Last Admin: 01/10/17 12:24 Dose: 40 meq Senna/Docusate Sodium (Senna Plus) 1 tab PO BID PRN PRN Reason: Constipation Temazepam (Restoril) 7.5 mg PO BEDTIME PRN PRN Reason: Sleep Thiamine HCl (Vitamin B-1) 200 mg IV ONETIME ONE Stop: 01/09/17 17:39 Last Admin: 01/09/17 18:58 Dose: Not Given Tramadol HCl (Ultram) 50 mg PO Q6H PRN PRN Reason: Pain - Exam Quality Assessment: Denies: supplemental oxygen General: Reports: alert, oriented, cooperative, no acute distress, other ( Morbidly Obese) HEENT: Reports: Pupils equal, Pupils reactive, EOMI, Mucous membr. moist/pink Neck: Reports: supple, trachea midline, no JVD, no thyromegaly, other (short and thick) Lungs: Reports: Normal respiratory effort, Decreased breath sounds Cardiovascular: Reports: Regular Rate, Regular Rhythm Abdomen: Reports: bowel sounds present, soft, no tenderness, no distension, other (Obese) (Female) Exam: Deferred Rectal (Female) Exam: Deferred Back Exam: Reports: Normal Inspection, Decreased Range of Motion Extremities: Reports: normal pulses, no tenderness/swelling, no clubbing (trace) , no cyanosis, calf tenderness, edema Skin: Reports: warm, dry, intact Neurological: Reports: no new focal deficit Psy/Mental Status: Reports: alert, normal affect, normal mood *Q Meaningful Use (DIS) - VTE *Q VTE Criteria *Q: - Stroke *Q Stroke Criteria *Q: - AMI *Q AMI Criteria *Q:
[2017-01-15] MEDS: amLODIPine 10 MG Tab PO SCH (08:03)
[2017-01-15] MEDS: Multivitamins with Minerals/Folic Acid/Lutein/Zeaxanth Tab PO SCH (08:03)
[2017-01-15] MEDS: Fluconazole 100 MG Tab PO SCH (08:04)
[2017-01-15] MEDS: Metoprolol Tartrate 25 MG Tab PO SCH (08:04)
[2017-01-15] MEDS: Losartan 100 MG Tab PO SCH (08:07)
[2017-01-15] MEDS: Cholecalciferol (Vitamin D3) 1,000 Unit Tab PO SCH (08:07)
[2017-01-15] MEDS: Aspirin 81 MG Tab.Chew PO SCH (08:07)
[2017-01-15] MEDS: Docusate Sodium 100 MG Cap PO SCH (08:08)
[2017-01-15] MEDS: MICONAZOLE 2% TOP SCH (08:08)
[2017-01-15] MEDS: Saccharomyces Boulardii (Probiotic) 250 MG Cap PO SCH (08:08)
[2017-01-15 08:09] VITALS: BP 145/85
[2017-01-15] MEDS: Acetaminophen 325 MG Tab PO PRN (10:39)
[2017-01-15] MEDS: Ondansetron 4 MG/2 ML SDV IV PRN (12:02)
[2017-01-15] MEDS ORDERED: Ondansetron 4 MG Tab.DIS PO ONE (12:12)
[2017-01-15] MEDS ORDERED: Scopolamine 1.5 MG Transdermal Patch TRDERM ONE (12:13)
== END 2017-01-15 13:10 | DRG 690 ==
LOC: JD.ED 15:20 → JD.MS 18:08
PROVIDERS: ADMIT Internal Medicine; ATTEND Internal Medicine
DX: N39.0 Urinary tract infection, site not specified (principal); G45.9 Transient cerebral ischemic attack, unspecified; I13.0 Hypertensive heart and chronic kidney disease with heart failure and stage 1 through stage 4 chronic kidney disease, or unspecified chronic kidney disease; N17.9 Acute kidney failure, unspecified; E87.1 Hypo-osmolality and hyponatremia; I38 Endocarditis, valve unspecified; I11.0 Hypertensive heart disease with heart failure; Z68.42 Body mass index [BMI] 45.0-49.9, adult; E78.00 Pure hypercholesterolemia, unspecified; Z86.711 Personal history of pulmonary embolism; R41.82 Altered mental status, unspecified; I50.9 Heart failure, unspecified; N18.3 Chronic kidney disease, stage 3 (moderate); E11.9 Type 2 diabetes mellitus without complications; E11.22 Type 2 diabetes mellitus with diabetic chronic kidney disease; Z79.84 Long term (current) use of oral hypoglycemic drugs; Z87.440 Personal history of urinary (tract) infections; Z68.30 Body mass index [BMI] 30.0-30.9, adult; D64.9 Anemia, unspecified; Z96.653 Presence of artificial knee joint, bilateral; Z88.1 Allergy status to other antibiotic agents; Z88.2 Allergy status to sulfonamides; Z79.82 Long term (current) use of aspirin; Z79.899 Other long term (current) drug therapy; I95.9 Hypotension, unspecified; Z91.81 History of falling; E78.5 Hyperlipidemia, unspecified; G89.29 Other chronic pain; R10.9 Unspecified abdominal pain; K58.1 Irritable bowel syndrome with constipation; K21.9 Gastro-esophageal reflux disease without esophagitis; M19.90 Unspecified osteoarthritis, unspecified site; E03.9 Hypothyroidism, unspecified; D50.9 Iron deficiency anemia, unspecified; L21.9 Seborrheic dermatitis, unspecified; F32.9 Major depressive disorder, single episode, unspecified; R09.02 Hypoxemia; E66.9 Obesity, unspecified; G47.33 Obstructive sleep apnea (adult) (pediatric)
CPT/HCPCS: 36415; 70450; 71010; 80053; 81001; 84484; 85025; 87086; 87088; 87186; 93005; 96365; 99285; J0696; J7030; J7040; P9612; 80048; 82962; 83735; 86140; 87040; 87641; 92523-GN; 92526-GN; 92610-GN; 94640-76; 94760; 94761; 97116-GP; 97163-GP; 97167-GO; 97530-GP; 99284; A9270-GY; J0360; J1644; J1956; J2060; J2405; J3411; J3475; J7042

== ENCOUNTER 2017-03-19 19:32 | Inpatient (IN) | payer MEDICARE, BC ==
[2017-03-19] MEDS ORDERED: Sodium Chloride 0.9% 500 ML IV ONE (20:17)
[2017-03-19] MEDS ORDERED: Ondansetron 4 MG/2 ML SDV IVPUSH ONE (20:17)
--- NOTE | 2017-03-19 21:03 | EDM.PDOC ---
ED HPI GENERAL MEDICAL PROBLEM - General Chief Complaint: Genitourinary Problem Stated Complaint: STOMACH PAIN/BLADDER HURTS Time Seen by Provider: 03/19/17 19:47 Source of Information: Reports: Patient, Family (), RN Notes Reviewed History Limitations: Reports: Other (Both the patient and her are poor historians) - History of Present Illness INITIAL COMMENTS - FREE TEXT/NARRATIVE: According to the patient's , the patient underwent Botox injections to her bladder, for overactive bladder, on 03/07/2017, at [facility]. She was discharged home with a prescription for fluconazole and Pyridium 200 mg TID. She was then seen at the [facility] on or about 03/12/2017 for dysuria, urinary frequency, and urgency. A urinalysis was collected by having the patient urinate into a hat. The results of that urinalysis are not known, however, the patient was prescribed doxycycline 100 mg po BID, which she finished today. The patient now presents with continued symptoms of dysuria, frequency, and urgency, worse for the past 2-3 days, along with suprapubic pain today. She feels generally weak and dry. She has had nausea, but no emesis. She has had nonbloody diarrhea. No recent constipation. The patient's PCP is Dr. Schaeffer. Lower Abdominal Pain Score (Numeric/FACES): 7 - Related Data Allergies Allergy/AdvReac Type Severity Reaction Status Date / Time amoxicillin AdvReac Nausea and Verified 03/19/17 19:45 Vomiting amoxicillin trihydrate AdvReac Nausea and Verified 03/19/17 19:45 [From Augmentin] Vomiting ciprofloxacin AdvReac Nausea and Verified 03/19/17 19:45 Vomiting potassium clavulanate AdvReac Nausea and Verified 03/19/17 19:45 [From Augmentin] Vomiting Sulfa (Sulfonamide AdvReac Nausea and Verified 03/19/17 19:45 Antibiotics) Vomiting Home Meds: Home Meds Docusate Sodium [Colace] 200 mg PO BID 09/12/14 [History] Polyethylene Glycol 3350 [MiraLAX] 17 gm PO BID PRN 02/18/15 [History] traMADol [Ultram] 50 mg PO Q6H PRN 04/29/15 [History] Cholecalciferol (Vitamin D3) [Vitamin D3] 1,000 unit PO DAILY 08/10/15 [History] Simvastatin 20 mg PO BEDTIME 08/10/15 [History] Valsartan [Diovan] 320 mg PO DAILY 08/10/15 [History] Vit C/Vit E Ac/Lut/Mineral 1 [Prosight with Lutein] 1 tab PO DAILY 08/10/15 [ History] amLODIPine Besylate [Amlodipine Besylate] 10 mg PO DAILY 08/10/15 [History] Aspirin 81 mg PO DAILY 10/19/15 [History] Levothyroxine [Synthroid] 50 mcg PO DAILY 10/19/15 [History] Dicyclomine HCl [Bentyl] 20 mg PO Q6HR 10/20/15 [History] Albuterol/Ipratropium [DuoNeb 3.0-0.5 MG/3 ML] 3 ml NEB QIDRT #1 box 01/03/17 [ Rx] metFORMIN [Glucophage] 500 mg PO BIDMEALS #60 tablet 01/03/17 [Rx] Aloe [place] Antifungal 2% Ointment 1 applic TOP BID 01/09/17 [History] Docusate Sodium/Sennosides [Senna Plus] 1 tab PO BID PRN 01/09/17 [History] Estradiol [Vagifem] 10 mcg VG DAILY PRN 01/09/17 [History] Furosemide [Lasix] 10 mg PO DAILY 01/09/17 [History] Omeprazole 40 mg PO DAILY 01/09/17 [History] Sucralfate [Carafate] 1 gm PO QIDACANDBED 01/09/17 [History] LORazepam [Ativan] 0.5 mg PO BEDTIME PRN #10 tablet 01/15/17 [Rx] Levofloxacin [Levaquin] 250 mg PO Q24H #3 tablet 01/15/17 [Rx] Metoprolol Succinate [Toprol XL] 25 mg PO BID #0 01/15/17 [Rx] Modafinil [Provigil] 100 mg PO DAILY #30 tablet 01/15/17 [Rx] Past Medical History Cardiovascular History: Reports: High Cholesterol, Hypertension Gastrointestinal History: Reports: Colon Polyp, Diverticulosis, GERD, Hemorrhoids Genitourinary History: Reports: Urinary Incontinence (spastic bladder) PHYSIATRIST History: Reports: Musculoskeletal History: Reports: Arthritis Psychiatric History: Reports: Anxiety, Depression Endocrine/Metabolic History: Reports: Diabetes, Type II, Hypothyroidism, Obesity /BMI 30+ Dermatologic History: Reports: Seborrheic Dermatitis - Infectious Disease History Infectious Disease History: Reports: Rheumatic Fever - Past Surgical History HEENT Surgical History: Reports: Cataract Surgery, Tonsillectomy GI Surgical History: Reports: Appendectomy, Cholecystectomy, Lysis of Adhesions , Adriane Fundoplication Female Surgical History: Reports: Hysterectomy, Salpingo-Oophorectomy Musculoskeletal Surgical History: Reports: Hip Replacement (right), Knee Replacement (bilateral) Social & Family History - Family History Cardiac: Reports: [facility] Other Cardiac Family History: Mother OBGYN: Reports: Endocrine/Metabolic: Reports: Diabetes, type II Oncologic: Reports: Colon - Tobacco Use Smoking Status *Q: Never Smoker Second Hand Smoke Exposure: No - Caffeine Use Caffeine Use: Reports: Coffee, Tea Other Caffeine Use: coffee in the morning - Alcohol Use Alcohol Use History: No Days Per Week of Alcohol Use: 0 Number of Drinks Per Day: 0 Total Drinks Per Week: 0 - Recreational Drug Use Recreational Drug Use: No - Living Situation & Occupation Living situation: Reports: , with Spouse Occupation: Retired ED ROS GENERAL - Review of Systems Review Of Systems: See Below Constitutional: Reports: No Symptoms, Weakness. Denies: Fever HEENT: Reports: No Symptoms Respiratory: Reports: No Symptoms Cardiovascular: Reports: No Symptoms Endocrine: Reports: No Symptoms GI/Abdominal: Reports: Diarrhea, Nausea. Denies: Bloody Stool, Constipation, Vomiting : Reports: Dysuria, Frequency, Pain (suprapubic), Urgency Musculoskeletal: Reports: No Symptoms Skin: Reports: No Symptoms Neurological: Reports: No Symptoms Psychiatric: Reports: No Symptoms Hematologic/Lymphatic: Reports: No Symptoms Immunologic: Reports: No Symptoms ED EXAM, GENERAL - Physical Exam Exam: See Below Exam Limited By: No Limitations General Appearance: Alert, WD/WN, No Apparent Distress Eye Exam: Bilateral Eye: Normal Inspection Ears: Normal External Exam, Hearing Grossly Normal Nose: Normal Inspection, No Blood Throat/Mouth: Normal Inspection, Normal Lips, Normal Voice, No Airway Compromise Head: Atraumatic, Normocephalic Neck: Normal Inspection, Full Range of Motion Respiratory/Chest: No Respiratory Distress, Lungs Clear, Normal Breath Sounds, No Accessory Muscle Use Cardiovascular: Normal Peripheral Pulses, Regular Rate, Rhythm, No Gallop, No JVD, No Rub, Systolic Murmur ([place] best at the left upper sternal border, consistent with pulmonary valve stenosis) Peripheral Pulses: 4+: Radial (L), Radial (R) GI/Abdominal: Normal Bowel Sounds, Soft, No Organomegaly, No Distention, No Abnormal Bruit, No Mass, Tender (In the suprapubic region and right upper quadrant. Nontender elsewhere.), Other (Obese) Back Exam: Normal Inspection, Full Range of Motion. No: CVA Tenderness (L), CVA Tenderness (R) Extremities: Normal Inspection, Normal Range of Motion, Normal Capillary Refill Neurological: Alert, Oriented, Normal Cognition, No Motor/Sensory Deficits Psychiatric: Normal Affect Skin Exam: Warm, Dry, Intact, Normal Color, No Rash Lymphatic: No Adenopathy EKG INTERPRETATION EKG Date: 03/19/17 Time: 20:49 Rhythm: NSR Rate (Beats/Min): 73 Hines: Normal P-Wave: Present (1st degree AVB) QRS: Normal ST-T: Normal QT: Prolonged (QTc 508 ms) Comparison: No Change (01/09/2017) Course - Vital Signs Last Recorded V/S: Last Vital Signs Temp 36.6 C 03/19/17 19:46 Pulse 87 03/19/17 19:46 Resp BP 193/75 H 03/19/17 19:46 Pulse Ox 83 L 03/19/17 19:46 - Orders/Labs/Meds Orders: Active Orders 24 hr Category Date Time Status EKG Documentation Completion [RC] STAT Care 03/19/17 20:16 Active Abdomen Pelvis w Cont [CT] Stat Exams 03/19/17 20:15 Taken Sodium Chloride 0.9% [Normal Saline] 1,000 ml Med 03/19/17 22:15 Active IV ASDIRECTED Medication Orders Sodium Chloride (Normal Saline) 1,000 mls @ 150 mls/hr IV ASDIRECTED SHREYA Labs: Laboratory Tests 03/19/17 03/19/17 03/19/17 Range/Units 20:28 20:28 20:28 WBC 7.23 (3.98-10.04) K/mm3 RBC 4.24 (3.98-5.22) M/mm3 Hgb 11.7 (11.2-15.7) gm/L Hct 37.4 (34.1-44.9) % MCV 88.2 (79.4-94.8) fl MCH 27.6 (25.6-32.2) pg MCHC 31.3 L (32.2-35.5) g/dl RDW Std Deviation 48.5 H (36.4-46.3) fL Plt Count 268 (182-369) K/mm3 MPV 10.1 (9.4-12.3) fl Neutrophils % (Manual) 51 (40-60) % Band Neutrophils % 1 (0-10) % Lymphocytes % (Manual) 38 (20-40) % Atypical Lymphs % 1 % Monocytes % (Manual) 5 (2-10) % Eosinophils % (Manual) 4 (0.7-5.8) % Basophils % (Manual) 0 L (0.1-1.2) Platelet Estimate Adequate Plt Morphology Comment Normal Poikilocytosis 1+ slight Anisocytosis 1+ slight Microcytosis 1+ slight Macrocytosis 1+ slight Tear Drop Cells 1+ slight Ovalocytes 1+ slight RBC Morph Comment Abnormal Sodium 141 (136-145) mEq/L Potassium 2.9 L (3.5-5.1) mEq/L Chloride 101 (98-107) mEq/L Carbon Dioxide 28 (21-32) mEq/L Anion Gap 14.9 (5-15) BUN 16 (7-18) mg/dL Creatinine 1.0 (0.55-1.02) mg/dL Est Cr Clr Drug Dosing 30.08 mL/min Estimated GFR (MDRD) 53 (>60) mL/min BUN/Creatinine Ratio 16.0 (14-18) Glucose 146 H (83-115) mg/dL Lactic Acid 2.2 H (0.4-2.0) mmol/L Calcium 8.8 (8.5-10.1) mg/dL Magnesium 0.9 L (1.8-2.4) mg/dl Total Bilirubin 0.6 (0.2-1.0) mg/dL AST 17 (15-37) U/L ALT 12 L (14-59) U/L Alkaline Phosphatase 107 (46-116) U/L Troponin I < 0.017 (0.00-0.056) ng/mL Total Protein 6.4 (6.4-8.2) g/dl Albumin 3.1 L (3.4-5.0) g/dl Globulin 3.3 gm/dL Albumin/Globulin Ratio 0.9 L (1-2) Lipase 85 (73-393) U/L Urine Color (Yellow) Urine Appearance (Clear) Urine pH (5.0-8.0) Ur Specific Rock (1.005-1.030) Urine Protein (Negative) Urine Glucose (UA) (Negative) Urine Ketones (Negative) Urine Occult Blood (Negative) Urine Nitrite (Negative) Urine Bilirubin (Negative) Urine Urobilinogen (0.2-1.0) Ur Leukocyte Esterase (Negative) Urine RBC (0-5) /hpf Urine WBC (0-5) /hpf Ur Epithelial Cells (0-5) /hpf Urine Bacteria (FEW) /hpf Urine Mucus (FEW) /hpf C.difficile 027-[id number] C. difficile Tox (PCR) 03/19/17 03/19/17 Range/Units 21:10 22:05 WBC (3.98-10.04) K/mm3 RBC (3.98-5.22) M/mm3 Hgb (11.2-15.7) gm/L Hct (34.1-44.9) % MCV (79.4-94.8) fl MCH (25.6-32.2) pg MCHC (32.2-35.5) g/dl RDW Std Deviation (36.4-46.3) fL Plt Count (182-369) K/mm3 MPV (9.4-12.3) fl Neutrophils % (Manual) (40-60) % Band Neutrophils % (0-10) % Lymphocytes % (Manual) (20-40) % Atypical Lymphs % % Monocytes % (Manual) (2-10) % Eosinophils % (Manual) (0.7-5.8) % Basophils % (Manual) (0.1-1.2) Platelet Estimate Plt Morphology Comment Poikilocytosis Anisocytosis Microcytosis Macrocytosis Tear Drop Cells Ovalocytes RBC Morph Comment Sodium (136-145) mEq/L Potassium (3.5-5.1) mEq/L Chloride (98-107) mEq/L Carbon Dioxide (21-32) mEq/L Anion Gap (5-15) BUN (7-18) mg/dL Creatinine (0.55-1.02) mg/dL Est Cr Clr Drug Dosing mL/min Estimated GFR (MDRD) (>60) mL/min BUN/Creatinine Ratio (14-18) Glucose (83-115) mg/dL Lactic Acid (0.4-2.0) mmol/L Calcium (8.5-10.1) mg/dL Magnesium (1.8-2.4) mg/dl Total Bilirubin (0.2-1.0) mg/dL AST (15-37) U/L ALT (14-59) U/L Alkaline Phosphatase (46-116) U/L Troponin I (0.00-0.056) ng/mL Total Protein (6.4-8.2) g/dl Albumin (3.4-5.0) g/dl Globulin gm/dL Albumin/Globulin Ratio (1-2) Lipase (73-393) U/L Urine Color [place] H (Yellow) Urine Appearance Clear (Clear) Urine pH 5.0 (5.0-8.0) Ur Specific Rock 1.020 (1.005-1.030) Urine Protein 2+ H (Negative) Urine Glucose (UA) Trace H (Negative) Urine Ketones Negative (Negative) Urine Occult Blood Negative (Negative) Urine Nitrite Positive H (Negative) Urine Bilirubin Negative (Negative) Urine Urobilinogen 2.0 H (0.2-1.0) Ur Leukocyte Esterase 3+ H (Negative) Urine RBC 0-5 (0-5) /hpf Urine WBC 0-5 (0-5) /hpf Ur Epithelial Cells 0-5 (0-5) /hpf Urine Bacteria Not seen (FEW) /hpf Urine Mucus Not seen (FEW) /hpf C.difficile [id number]-[id number] Presumptive negative C. difficile Tox (PCR) Negative Meds: Medications Generic Name Dose Route Start Last Admin Trade Name Freq PRN Reason Stop Dose Admin Sodium Chloride 1,000 mls @ 150 mls/hr 03/19/17 22:15 Normal Saline IV ASDIRECTED SHREYA Discontinued Medications Generic Name Dose Route Start Last Admin Trade Name Freq PRN Reason Stop Dose Admin Sodium Chloride 500 mls @ 999 mls/hr 03/19/17 20:17 03/19/17 20:42 Normal Saline IV 03/19/17 20:47 999 mls/hr .BOLUS ONE Administration Magnesium Sulfate 2 gm/ Premix 50 mls @ 50 mls/hr 03/19/17 22:12 03/19/17 22: 53 IV 03/19/17 23:11 50 mls/hr ONETIME ONE Administration Ondansetron HCl 4 mg 03/19/17 20:17 03/19/17 20:43 Zofran IVPUSH 03/19/17 20:18 4 mg ONETIME ONE Administration - Re-Assessments/Exams Free Text/Narrative Re-Assessment/Exam: 03/19/17 22:13 The patient's lactic acid has returned slightly elevated at 2.2, although her anion gap is within normal limits at 14.9, as is her bicarbonate at 28. Her potassium is depressed at 2.9, however, her magnesium is significantly depressed at 0.9. Her urinalysis is positive for both nitrites and leukocyte esterase, however, there are no WBCs or bacteria seen on the microscopic evaluation. Based on the above, I have ordered a 2 g magnesium rider and normal saline at 150 mL per hour. She will require potassium replacement, but not until after her magnesium has been replaced. 03/19/17 23:03 CT of the abdomen and pelvis with oral and IV contrast is read by [facility] as: 1. Mild, nonspecific left ramsey-colitis 2. Hiatal hernia 3. Colonic diverticulosis 4. 3.4 cm right adrenal nodule is unchanged 03/19/17 23:13 Test results discussed with the patient and her . The patient is hypokalemic with significant hypomagnesemia, and her CT scan shows mild left ramsey-colitis, which is likely responsible for her abdominal symptoms. I am recommending admission to the hospital with possible surgical consult for colonoscopy. The patient and her are agreeable. 03/19/17 23:[address] Ackerman at 23:14. She agrees to admit the patient to [facility] with telemetry. Departure - Departure Time of Disposition: 23:19 Disposition: Admitted As Inpatient 64 Condition: Fair Clinical Impression: Hypokalemia, Hypomagnesemia, Colitis, Generalized weakness - Discharge Information - My Orders Last 24 Hours: My Active Orders 03/19/17 20:15 Abdomen Pelvis w Cont [CT] Stat 03/19/17 20:16 EKG Documentation Completion [RC] STAT 03/19/17 22:15 Sodium Chloride 0.9% [Normal Saline] 1,000 ml IV ASDIRECTED - Assessment/Plan Last 24 Hours: My Active Orders 03/19/17 20:15 Abdomen Pelvis w Cont [CT] Stat 03/19/17 20:16 EKG Documentation Completion [RC] STAT 03/19/17 22:15 Sodium Chloride 0.9% [Normal Saline] 1,000 ml IV ASDIRECTED
[2017-03-19] MEDS ORDERED: Magnesium Sulfate/Water 2 GM in Premix Bag 1 BAG IV ONE (22:12)
[2017-03-19] MEDS ORDERED: Sodium Chloride 0.9% 1,000 ML IV SCH (22:15)
[2017-03-20] MEDS ORDERED: Magnesium Sulfate/Water 2 GM in Premix Bag 1 BAG IV ONE (00:15)
[2017-03-20] MEDS ORDERED: Dextrose 5%-0.9% NaCl with KCl 1,000 ML IV SCH (00:15)
[2017-03-20] MEDS ORDERED: Potassium Chloride 10% 20 MEQ/15 ML Soln 15 ML UD Cup PO ONE (00:16)
[2017-03-20] MEDS ORDERED: Levofloxacin/Dextrose 5%-Water 750 MG in Premix Bag 1 BAG IV ONE (00:39)
[2017-03-20] MEDS: metroNIDAZOLE/Normal Saline 500 MG in Premix Bag 1 BAG IV SCH ×3 (01:28→15:41)
[2017-03-20] MEDS ORDERED: Aluminum Hydroxide/Magnesium Hydroxide/Simethicone Susp 30 ML Cup PO PRN (06:23)
[2017-03-20] MEDS ORDERED: Levofloxacin/Dextrose 5%-Water 750 MG in Premix Bag 1 BAG IV SCH (06:30)
--- NOTE | 2017-03-20 08:24 | CT ---
CT abdomen and pelvis Technique: Multiple axial sections were obtained from above the dome of the diaphragm inferiorly through the pubic symphysis. Intravenous and oral contrast was utilized. Delayed images were also obtained through the bladder. Comparison: Prior CT abdomen and pelvis exam of 04/14/16 and 03/18/11. Findings: Visualized lung bases show nothing acute. Liver shows no focal parenchymal abnormality. Spleen appears within normal limits. Moderately large hiatal hernia is seen with mild gastroesophageal reflux of contrast. 3.5 centimeter nodule is noted within the right adrenal gland. This has slightly increased in size by about 3 mm from prior exam. Right adrenal gland is unremarkable. Kidneys show symmetric contrast enhancement without hydronephrosis or mass. Pancreas is within normal limits. Surgical clips are seen from prior cholecystectomy. Aorta shows atherosclerotic change without aneurysmal dilatation. No retroperitoneal adenopathy or mesenteric abnormalities are seen. No pelvic mass or adenopathy is identified. Delayed images show minimal contrast within the bladder and distal ureters. Lack of haustral pattern is seen within the sigmoid colon with mild wall wall thickening. Similar finding seen within the left colon. Mild diverticulosis noted within the distal descending and sigmoid colon. No inflammatory change of diverticulitis is seen. No bowel dilatation is identified. Bone window settings were reviewed showing scattered degenerative change within the spine. Artifact noted within the pelvis from right hip prosthesis. Impression: 1. Lack of normal haustral pattern within the descending and sigmoid colon. Findings compatible with nonspecific left-sided colitis. Mild diverticulosis also noted. 2. 3.5 cm nodule within the right adrenal gland slightly increased in size from prior exam. Uncertain if this is due to slightly growing benign or low grade malignant nodule. 3. Other incidental findings as noted above. Diagnostic code #9 I mostly agree with preliminary report issued by [facility], I do believe the right adrenal nodule has slightly increased in size from previous exam ([facility] preliminary report dictated on 03/19/17, 11:55 PM Central Time)
[2017-03-20] MEDS: Losartan 25 MG Tab PO SCH (08:26)
[2017-03-20] MEDS: Docusate Sodium 100 MG Cap PO SCH ×2 (08:26→21:02)
[2017-03-20] MEDS: Furosemide 20 MG Tab PO SCH (08:27)
[2017-03-20] MEDS: Aspirin 81 MG Tab.Chew PO SCH (08:30)
[2017-03-20] MEDS: Pantoprazole 40 MG Tab.CR PO SCH (08:31)
[2017-03-20] MEDS: Metoprolol Succinate 25 MG Tab.ER PO SCH ×2 (08:32→20:22)
[2017-03-20] MEDS: amLODIPine 5 MG Tab PO SCH (08:33)
[2017-03-20] MEDS: Cholecalciferol (Vitamin D3) 1,000 Unit Tab PO SCH (08:34)
[2017-03-20] MEDS: Losartan 100 MG Tab PO SCH (08:35)
[2017-03-20] MEDS: Sucralfate Suspension 1 GM/10 ML Cup PO SCH ×4 (08:36→21:01)
[2017-03-20] MEDS: Polyethylene Glycol 3350 Powder 17 GM Packet PO SCH (08:37)
[2017-03-20] MEDS: Enoxaparin 30 MG/0.3 ML Syringe SUBCUT SCH (08:38)
[2017-03-20] MEDS: Levothyroxine 50 MCG Tab PO SCH (09:08)
[2017-03-20] MEDS: HYDROmorphone 0.5 MG/0.5 ML Syringe IVPUSH PRN ×2 (09:56→17:29)
[2017-03-20] MEDS: Albuterol/Ipratropium 3.0-0.5 MG/3 ML Neb Soln NEB SCH ×3 (10:01→20:34)
[2017-03-20] MEDS ORDERED: Ondansetron 4 MG/2 ML SDV IVPUSH PRN (10:06)
[2017-03-20] MEDS: Dicyclomine 10 MG Cap PO SCH ×2 (11:12→17:29)
[2017-03-20] MEDS: Saccharomyces Boulardii (Probiotic) 250 MG Cap PO SCH ×2 (11:12→20:21)
--- NOTE | 2017-03-20 11:30 | PCM.HP ---
<Reg Castillo - Last Filed: 03/20/17 15:45> H&P History of Present Illness - General Date of Service: 03/20/17 Admit Problem/Dx: Admission Diagnosis/Problem Admission Diagnosis/Problem Hypokalemia Source of Information: Patient, Family, Old Records, RN Notes Reviewed History Limitations: Reports: Other (Patient and are relatively poor historians ) - History of Present Illness Initial Comments - Free Text/Narative: Carlota Sotelo is an 82 year old female who came to our ED with complaints of stomach and bladder pain. She was accompanied by her . She [facility] to her bladder for [facility] with fluconazole and Pyridium 200 mg 3 times a day. Her eyes reports she had undergone Botox injections before and they had worked, however this time symptoms were not relieved. On 03/12/17 she was in [facility] for dysuria, urinary frequency, and urgency. The patient urinated in a hat and a urinalysis preformed, unfortunately we are unable see these records. She is prescribed doxycycline 100 mg by mouth twice a day and finished those yesterday. Since that time she has had no resolution of symptoms and the pain has actually gotten worse over the past 2-3 days. She reports also feeling weak and dry, nausea, but no emesis. She has had non- bloody diarrhea. She denies any recent constipation. Once in the ED, an EKG was preformed revealing a first-degree A-V block with a rate of 73 beats per minutes. She also slightly prolonged QT. This was unchanged from previous EKG performed on 01/09/17. She was hypertensive with a blood pressure 193/75. Pulse ox is also noted to be 83. Labs were obtained and revealed a normal WBC of 7.23, hemoglobin 11.7, platelets 268,000, sodium was 141, potassium was low at 2.9, creatinine was 1.0, glucose was high at 146, lactic acid was high at 2.2, magnesium was low at 0.9, troponin was negative, lipase was 85. Urinalysis was performed revealing orange colored urine, likely.due to the Pyridium. UA was positive for nitrate and leukocyte Estrace was 3+, however no bacteria or WBCs were seen on microscopic examination. A stool C. difficile PCR was also performed and was negative. A 2 g magnesium rider was started. Potassium replacement was delayed until magnesium was normalized. A CT of the abdomen and pelvis was performed notin. Mild, nonspecific left hemic colitis. 2. Hiatal hernia. 3. Colonic diverticulosis. 4. 3.4 cm right adrenal nodule is unchanged. Patient was subsequently admitted to the hospital under MedSurg with telemetry. She is a full code. Her PCP is Dr. Schaeffer. Duration of Symptoms: Reports: Constant Location: Reports: Abdomen Quality: Reports: Sharp Severity: Moderate Improves with: Reports: None Worsens with: Reports: None Associated Symptoms: Reports: Nausea/Vomiting (no vomiting ) Lower Abdominal Pain Score (Numeric/FACES): 2 (worse with suprapubic palpatation) - Related Data Allergies/Adverse Reactions: Allergies Allergy/AdvReac Type Severity Reaction Status Date / Time amoxicillin AdvReac Nausea and Verified 03/20/17 01:14 Vomiting amoxicillin trihydrate AdvReac Nausea and Verified 03/20/17 01:14 [From Augmentin] Vomiting ciprofloxacin AdvReac Nausea and Verified 03/20/17 01:14 Vomiting potassium clavulanate AdvReac Nausea and Verified 03/20/17 01:14 [From Augmentin] Vomiting Sulfa (Sulfonamide AdvReac Nausea and Verified 03/20/17 01:14 Antibiotics) Vomiting Home Medications: Home Meds Docusate Sodium [Colace] 200 mg PO BID 09/12/14 [History] Polyethylene Glycol 3350 [MiraLAX] 17 gm PO DAILY 02/18/15 [History] traMADol [Ultram] 50 mg PO Q6H PRN 04/29/15 [History] Cholecalciferol (Vitamin D3) [Vitamin D3] 1,000 unit PO DAILY 08/10/15 [History] Simvastatin 20 mg PO BEDTIME 08/10/15 [History] Valsartan [Diovan] 320 mg PO DAILY 08/10/15 [History] Vit C/Vit E Ac/Lut/Mineral 1 [Prosight with Lutein] 1 tab PO DAILY 08/10/15 [ History] amLODIPine Besylate [Amlodipine Besylate] 5 mg PO DAILY 08/10/15 [History] Aspirin 81 mg PO DAILY 10/19/15 [History] Levothyroxine [Synthroid] 50 mcg PO DAILY 10/19/15 [History] Dicyclomine HCl [Bentyl] 20 mg PO Q6HR 10/20/15 [History] Albuterol/Ipratropium [DuoNeb 3.0-0.5 MG/3 ML] 3 ml NEB QIDRT #1 box 01/03/17 [ Rx] metFORMIN [Glucophage] 500 mg PO BIDMEALS #60 tablet 01/03/17 [Rx] Furosemide [Lasix] 10 mg PO DAILY 01/09/17 [History] Omeprazole 40 mg PO DAILY 01/09/17 [History] Sucralfate [Carafate] 1 gm PO QIDACANDBED 01/09/17 [History] Metoprolol Succinate [Toprol XL] 25 mg PO BID #0 01/15/17 [Rx] Acetaminophen 650 mg PO Q4H PRN 03/20/17 [History] Alum Hydroxide/Mag Hydroxide [Mag-Al Susp] 30 ml PO ASDIRECTED PRN 03/20/17 [ History] Estradiol [Yuvafem] 10 mcg VAG MOWEFR 03/20/17 [History] LORazepam [Ativan] 0.5 mg PO BEDTIME 03/20/17 [History] Sertraline [Zoloft] 50 mg PO DAILY 03/20/17 [History] Past Medical History HEENT History: Reports: None Cardiovascular History: Reports: High Cholesterol, Hypertension Respiratory History: Reports: PE Gastrointestinal History: Reports: Colon Polyp, Diverticulosis, GERD, Hemorrhoids Other Gastrointestinal History: gastric ulcer, abdominal pain, lapartomy Genitourinary History: Reports: Urinary Incontinence (spastic bladder) Other Genitourinary History: cystitis; botos injections in the bladder 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: Musculoskeletal History: Reports: Arthritis Psychiatric History: Reports: Anxiety, Depression Endocrine/Metabolic History: Reports: Diabetes, Type II, Hypothyroidism, Obesity /BMI 30+ Hematologic History: Reports: Anemia Dermatologic History: Reports: Seborrheic Dermatitis - Infectious Disease History Infectious Disease History: Reports: Rheumatic Fever - Past Surgical History HEENT Surgical History: Reports: Cataract Surgery, Tonsillectomy GI Surgical History: Reports: Appendectomy, Cholecystectomy, Lysis of Adhesions , Adriane Fundoplication Female Surgical History: Reports: Hysterectomy, Salpingo-Oophorectomy Musculoskeletal Surgical History: Reports: Hip Replacement (right), Knee Replacement (bilateral) Social & Family History - Family History Cardiac: Reports: MD Other Cardiac Family History: Mother OBGYN: Reports: Endocrine/Metabolic: Reports: Diabetes, type II Oncologic: Reports: Colon - Tobacco Use Smoking Status *Q: Never Smoker Second Hand Smoke Exposure: No - Caffeine Use Caffeine Use: Reports: Coffee, Tea Other Caffeine Use: coffee in the morning - Alcohol Use Days Per Week of Alcohol Use: 0 Number of Drinks Per Day: 0 Total Drinks Per Week: 0 - Recreational Drug Use Recreational Drug Use: No Drug Use in Last 12 Months: No - Living Situation & Occupation Living situation: Reports: , with Spouse Occupation: Retired H&P Review of Systems - Review of Systems: Review Of Systems: See Below Free Text/Narrative: Reports up to use restroom with assistance. No increase in pain during urination. General: Reports: Weakness, Decreased Appetite. Denies: Fever, Chills HEENT: Reports: No Symptoms Pulmonary: Reports: No Symptoms Cardiovascular: Reports: No Symptoms Gastrointestinal: Reports: Abdominal Pain (suprapubic radiating to right and left lower quadrants ), Diarrhea, Decreased Appetite, Nausea. Denies: Black Stool, Bloody Stool, Constipation, Hematemesis, Hematochezia, Melena, Stool Incontinence, Vomiting Genitourinary: Reports: Dysuria, Frequency, Urgency. Denies: Flank Pain Musculoskeletal: Reports: No Symptoms Skin: Reports: No Symptoms Psychiatric: Reports: No Symptoms Neurological: Reports: No Symptoms Hematologic/Lymphatic: Reports: No Symptoms Immunologic: Reports: No Symptoms Exam - Exam Exam: See Below - Vital Signs Vital Signs: Last Vital Signs Temp 97.5 F 03/20/17 08:06 Pulse 68 03/20/17 08:32 Resp 16 03/20/17 02:59 BP 137/55 L 03/20/17 08:35 Pulse Ox 94 L 03/20/17 10:01 Weight: 90.9 kg - Exam Quality Assessment: Supplemental Oxygen, DVT Prophylaxis General: Alert, Oriented, Cooperative HEENT: Conjunctiva Clear, EACs Clear, Hearing Intact, Mucosa Moist & Miranda, Nares Patent, Posterior Pharynx Clear, Pupils Equal, Pupils Reactive Neck: Supple, Trachea Midline Lungs: Clear to Auscultation, Normal Respiratory Effort Cardiovascular: Regular Rate, Regular Rhythm, Systolic Murmur GI/Abdominal Exam: Normal Bowel Sounds, Soft, No Organomegaly, No Distention, No Mass, Tender (Suprapubic region radiating to LLQ and RLQ) (Female) Exam: Deferred Rectal (Female) Exam: Deferred Back Exam: Normal Inspection. No: CVA Tenderness (L), CVA Tenderness (R) Extremities: Normal Inspection, Normal Range of Motion, Non-Tender, No Pedal Edema, Normal Capillary Refill Peripheral Pulses: 2+: Radial (L), Radial (R), Posterior Tibial (L), Posterior Tibial (R), Dorsalis Pedis (L), Dorsalis Pedis (R) Skin: Warm, Dry, Intact Neuro Extensive - Mental Status: Alert, Oriented x3, Normal Mood/Affect, Normal Cognition Psychiatric: Alert, Normal Affect, Normal Mood Physical Exam Comments:: Patient is lying in bed. She is obese. She does not look to be in any obvious distress. - Patient Data Lab Results Last 24 hrs: Laboratory Results - last 24 hr 03/20/17 03/20/17 03/20/17 Range/Units 06:00 06:00 06:00 WBC 7.92 (3.98-10.04) K/mm3 RBC 3.84 L (3.98-5.22) M/mm3 Hgb 10.6 L (11.2-15.7) gm/L Hct 34.0 L (34.1-44.9) % MCV 88.5 (79.4-94.8) fl MCH 27.6 (25.6-32.2) pg MCHC 31.2 L (32.2-35.5) g/dl RDW Std Deviation 48.4 H (36.4-46.3) fL Plt Count 259 (182-369) K/mm3 MPV 10.7 (9.4-12.3) fl Neut % (Auto) 74.0 H (34.0-71.1) % Lymph % (Auto) 16.2 L (19.3-51.7) % [place] % (Auto) 9.1 (4.7-12.5) % Eos % (Auto) 0.3 L (0.7-5.8) Baso % (Auto) 0.0 L (0.1-1.2) % Neut # (Auto) 5.87 (1.56-6.13) K/mm3 Lymph # (Auto) 1.28 (1.18-3.74) K/mm3 [place] # (Auto) 0.72 H (0.24-0.36) K/mm3 Eos # (Auto) 0.02 L (0.04-0.36) K/mm3 Baso # (Auto) 0.00 L (0.01-0.08) K/mm3 Sodium 139 (136-145) mEq/L Potassium 3.8 (3.5-5.1) mEq/L Chloride 104 (98-107) mEq/L Carbon Dioxide 21 (21-32) mEq/L Anion Gap 17.8 H (5-15) BUN 14 (7-18) mg/dL Creatinine 0.9 (0.55-1.02) mg/dL Est Cr Clr Drug Dosing 33.42 mL/min Estimated GFR (MDRD) 60 (>60) mL/min BUN/Creatinine Ratio 15.6 (14-18) Glucose 152 H (83-115) mg/dL POC Glucose (83-110) mg/dL Lactic Acid 1.8 (0.4-2.0) mmol/L Calcium 7.8 L (8.5-10.1) mg/dL Magnesium 2.4 (1.8-2.4) mg/dl C-Reactive Protein 1.0 (<1.0) mg/dL 03/20/17 Range/Units 06:15 WBC (3.98-10.04) K/mm3 RBC (3.98-5.22) M/mm3 Hgb (11.2-15.7) gm/L Hct (34.1-44.9) % MCV (79.4-94.8) fl MCH (25.6-32.2) pg MCHC (32.2-35.5) g/dl RDW Std Deviation (36.4-46.3) fL Plt Count (182-369) K/mm3 MPV (9.4-12.3) fl Neut % (Auto) (34.0-71.1) % Lymph % (Auto) (19.3-51.7) % [place] % (Auto) (4.7-12.5) % Eos % (Auto) (0.7-5.8) Baso % (Auto) (0.1-1.2) % Neut # (Auto) (1.56-6.13) K/mm3 Lymph # (Auto) (1.18-3.74) K/mm3 [place] # (Auto) (0.24-0.36) K/mm3 Eos # (Auto) (0.04-0.36) K/mm3 Baso # (Auto) (0.01-0.08) K/mm3 Sodium (136-145) mEq/L Potassium (3.5-5.1) mEq/L Chloride (98-107) mEq/L Carbon Dioxide (21-32) mEq/L Anion Gap (5-15) BUN (7-18) mg/dL Creatinine (0.55-1.02) mg/dL Est Cr Clr Drug Dosing mL/min Estimated GFR (MDRD) (>60) mL/min BUN/Creatinine Ratio (14-18) Glucose (83-115) mg/dL POC Glucose 160 H (83-110) mg/dL Lactic Acid (0.4-2.0) mmol/L Calcium (8.5-10.1) mg/dL Magnesium (1.8-2.4) mg/dl C-Reactive Protein (<1.0) mg/dL Result Diagrams: 03/20/17 06:00 03/20/17 06:00 *Q Meaningful Use (ADM) - VTE *Q VTE Criteria *Q: - Stroke *Q Stroke Criteria *Q: - AMI *Q AMI Criteria *Q: - Problem List (1) Colitis SNOMED Code(s): 34367136 ICD Code: K52.9 - NONINFECTIVE GASTROENTERITIS AND COLITIS, UNSPECIFIED Status: Acute Priority: High Current Visit: Yes (2) Urinary tract infection SNOMED Code(s): 84689915 ICD Code: N39.0 - URINARY TRACT INFECTION, SITE NOT SPECIFIED Status: Acute Priority: High Current Visit: No QualifierTitle: Urinary tract infection type: acute cystitis Hematuria presence: without hematuria Qualified Code(s): N30.00 - Acute cystitis without hematuria (3) Hypokalemia SNOMED Code(s): 87529966 ICD Code: E87.6 - HYPOKALEMIA Status: Resolved Priority: High Current Visit: Yes (4) Hypomagnesemia SNOMED Code(s): 200118526 ICD Code: E83.42 - HYPOMAGNESEMIA Status: Resolved Priority: High Current Visit: Yes (5) Diabetes SNOMED Code(s): 45480663 ICD Code: E11.9 - TYPE 2 DIABETES MELLITUS WITHOUT COMPLICATIONS Status: Acute Priority: Medium Current Visit: Yes QualifierTitle: Diabetes mellitus type: type 2 (6) Generalized weakness SNOMED Code(s): 65403067 ICD Code: R53.1 - WEAKNESS Status: Acute Priority: Medium Current Visit : Yes (7) Congestive heart failure (CHF) SNOMED Code(s): 06070987 ICD Code: I50.9 - HEART FAILURE, UNSPECIFIED Status: Acute Priority: Low Current Visit: No QualifierTitle: Congestive heart failure type: unspecified congestive heart failure type Congestive heart failure chronicity: acute on chronic Qualified Code(s): I50.9 - Heart failure, unspecified Problem List Initiated/Reviewed/Updated: Yes Orders Last 24hrs: Active Orders 24 hr Category Date Time Status Admission Status [Patient Status] [ADT] Routine ADT 03/19/17 23:58 Active Antiembolic Devices [RC] , Care 03/20/17 00:23 Active Blood Glucose Check, Bedside [RC] Q6HR Care 03/20/17 00:14 Active Oxygen Therapy [RC] ASDIRECTED Care 03/20/17 00:30 Active Consult to Case Management [CONS] Routine Cons 03/20/17 00:21 Active OT Evaluation and Treatment [CONS] Routine Cons 03/20/17 00:20 Active PT Evaluation and Treatment [CONS] Routine Cons 03/20/17 00:20 Active NPO [Nothing Per Oral Diet] [DIET] Diet 03/20/17 Breakfast Active CULTURE BLOOD [BC] Stat Lab 03/20/17 00:40 Received CULTURE BLOOD [BC] Stat Lab 03/20/17 00:58 Received CULTURE STOOL + SHIGATOX [RM] Routine Lab 03/20/17 11:17 Uncollected CULTURE URINE [RM] Routine Lab 03/20/17 00:25 Results OVA & PARASITES BY IMMUNOASSAY [MREF] Routine Lab 03/20/17 11:17 Uncollected WBC, STOOL [OP] Routine Lab 03/20/17 11:17 Uncollected Albuterol/Ipratropium [DuoNeb 3.0-0.5 MG/3 ML] Med 03/20/17 10:00 Active 3 ml NEB QIDRT Alum Hydrox/Mag Hydrox/Simeth [Mag-Al Plus] Med 03/20/17 06:23 Active 30 ml PO ASDIRECTED PRN Aspirin Med 03/20/17 09:00 Active 81 mg PO DAILY Cholecalciferol (Vitamin D3) [Vitamin D3] Med 03/20/17 09:00 Active 1,000 units PO DAILY Dicyclomine [Bentyl] Med 03/20/17 12:00 Active 20 mg PO Q6HR Docusate Sodium [Colace] Med 03/20/17 09:00 Active 200 mg PO BID Enoxaparin [Lovenox] Med 03/20/17 09:00 Active 30 mg SUBCUT DAILY Furosemide [Lasix] Med 03/20/17 09:00 Active 10 mg PO DAILY HYDROmorphone [Dilaudid] Med 03/20/17 00:18 Active 0.5 mg IVPUSH Q6H PRN LORazepam [Ativan] Med 03/20/17 21:00 Active 0.5 mg PO BEDTIME Levofloxacin/Dextrose 5%-Water [Levaquin in D5W 750 MG/ Med 03/22/17 05:00 Active 150 ML] 750 mg Premix Bag 1 bag IV Q48H Levothyroxine [Synthroid] Med 03/20/17 06:45 Active 50 mcg PO ACBREAKFAST Losartan [Cozaar] Med 03/20/17 09:00 Active 100 mg PO DAILY Losartan [Cozaar] Med 03/20/17 09:00 Active 50 mg PO DAILY Metoprolol Succinate [Toprol XL] Med 03/20/17 09:00 Active 25 mg PO BID Morphine Med 03/20/17 00:18 Active 1 mg IVPUSH Q4H PRN Ondansetron [Zofran] Med 03/20/17 10:06 Active 4 mg IVPUSH Q4H PRN Pantoprazole [ProTONIX] Med 03/20/17 07:00 Active 40 mg PO DAILY@0700 Patient's Own Medication [Ptom] Med 03/21/17 09:00 Active 0 each VAG MOWEFR Polyethylene Glycol 3350 [MiraLAX] Med 03/20/17 09:00 Active 17 gm PO DAILY Saccharomyces Boulardii [Florastor] Med 03/20/17 10:30 Active 250 mg PO BID Simvastatin [Zocor] Med 03/20/17 21:00 Active 20 mg PO BEDTIME Sucralfate [Carafate] Med 03/20/17 07:00 Active 1 gm PO QIDACANDBED Temazepam [Restoril] Med 03/20/17 00:16 Active 7.5 mg PO BEDTIME PRN amLODIPine [Norvasc] Med 03/20/17 09:00 Active 5 mg PO DAILY metroNIDAZOLE/Normal Saline [Flagyl 500 MG in NS 100 ML Med 03/20/17 00:30 Active ] 500 mg Premix Bag 1 bag IV Q8H traMADol [Ultram] Med 03/20/17 06:23 Active 50 mg PO Q6H PRN Blood Culture x2 Reflex Set [OM.PC] Stat Oth 03/20/17 00:25 Ordered KYLER Hose [Antiembolic Hose] [OM.PC] Routine Oth 03/20/17 00:23 Ordered Resuscitation Status Routine Resus Stat 03/20/17 09:06 Ordered Medication Orders Al Hydroxide/Mg Hydroxide (Mag-Al Plus) 30 ml PO ASDIRECTED PRN PRN Reason: Heartburn Albuterol/Ipratropium (Duoneb 3.0-0.5 Mg/3 Ml) 3 ml NEB QIDRT [facility] Last Admin: 03/20/17 10:01 Dose: Not Given Amlodipine Besylate (Norvasc) 5 mg PO DAILY [facility] Last Admin: 03/20/17 08:33 Dose: 5 mg Aspirin (Aspirin) 81 mg PO DAILY [facility] Last Admin: 03/20/17 08:30 Dose: 81 mg Cholecalciferol (Vitamin D3) 1,000 units PO DAILY [facility] Last Admin: 03/20/17 08:34 Dose: 1,000 units Dicyclomine HCl (Bentyl) 20 mg PO Q6HR [facility] Last Admin: 03/20/17 11:12 Dose: 20 mg Docusate Sodium (Colace) 200 mg PO BID [facility] Last Admin: 03/20/17 08:26 Dose: 200 mg Enoxaparin Sodium (Lovenox) 30 mg SUBCUT DAILY [facility] Last Admin: 03/20/17 08:38 Dose: 30 mg Furosemide (Lasix) 10 mg PO DAILY [facility] Last Admin: 03/20/17 08:27 Dose: 10 mg Hydromorphone HCl (Dilaudid) 0.5 mg IVPUSH Q6H PRN PRN Reason: Pain Last Admin: 03/20/17 09:56 Dose: 0.5 mg Metronidazole 500 mg/ Premix 100 mls @ 100 mls/hr IV Q8H [facility] Last Admin: 03/20/17 08:38 Dose: 100 mls/hr Infusion: 03/20/17 02:28 Dose: 100 mls/hr Admin: 03/20/17 01:28 Dose: 100 mls/hr Levofloxacin/Dextrose 750 mg/ (Premix) 150 mls @ 100 mls/hr IV Q48H [facility] Levothyroxine Sodium (Synthroid) 50 mcg PO ACBREAKFAST [facility] Last Admin: 03/20/17 09:08 Dose: 50 mcg Lorazepam (Ativan) 0.5 mg PO BEDTIME [facility] Losartan Potassium (Cozaar) 100 mg PO DAILY [facility] Last Admin: 03/20/17 08:35 Dose: 100 mg Losartan Potassium (Cozaar) 50 mg PO DAILY [facility] Last Admin: 03/20/17 08:26 Dose: 50 mg Metoprolol Succinate (Toprol Xl) 25 mg PO BID [facility] Last Admin: 03/20/17 08:32 Dose: 25 mg Morphine Sulfate (Morphine) 1 mg IVPUSH Q4H PRN PRN Reason: Pain Ondansetron HCl (Zofran) 4 mg IVPUSH Q4H PRN PRN Reason: nausea Pantoprazole Sodium (Protonix) 40 mg PO DAILY@0700 [facility] Last Admin: 03/20/17 08:31 Dose: 40 mg Estradiol [Yuvafem] (10 Mcg) 0 each VAG MOWEFR [facility] Polyethylene Glycol (Miralax) 17 gm PO DAILY [facility] Last Admin: 03/20/17 08:37 Dose: 17 gm Saccharomyces Boulardii (Florastor) 250 mg PO BID [facility] Last Admin: 03/20/17 11:12 Dose: 250 mg Simvastatin (Zocor) 20 mg PO BEDTIME [facility] Sucralfate (Carafate) 1 gm PO QIDACANDBED [facility] Last Admin: 03/20/17 11:13 Dose: 1 gm Admin: 03/20/17 08:36 Dose: 1 gm Temazepam (Restoril) 7.5 mg PO BEDTIME PRN PRN Reason: Insomnia Tramadol HCl (Ultram) 50 mg PO Q6H PRN PRN Reason: Pain Assessment/Plan Comment:: I/P Acute: Colitis -Acute abdominal pain -No history of colitis -C/O non-bloody diarrhea -WBC normal at 7.23 -CRP 1.0 -CT scan on 03/19/17 noting "mild, non-specific left ramsey-colitis" along with "colonic diverticulosis" -Patients brings in paperwork from colonoscopy preformed in [place] on 09/2016 noting severe diverticulitis in sigmoid colon, at that time no inflammation was noted. -Patient started on Flagyl 500mg and Levaquin 750mg in D5W. -C. Diff negative -Ordered stool culture, WBC, and O&P UTI: -Suprapubic pain -Dysuria, frequency, and urgency -Prescribed fluconazole and pyridium after bladder Botox injections preformed in [place] on 03/07/17 -Prescribed doxycycline 100mg PO BID around 03/12/17 for UTI symptoms - she finished this on 03/19/17 -Urinary incontinence from spastic bladder -Above antibiotics should cover this pending culture. Resolved: Hypomagnesemia - 0.9 in ED, now 2.4 - Will continue to monitor Hypokalemia -2.9 in ED, now 3.8 - Will continue to monitor Chronic: Diabetes -Insulin per protocol -Monitor glucose as directed Hypothyroidism HTN Hypercholesteremia GERD Anxiety Depression Plan: SW/CM for discharge planning PT/OT DVT/GI prophylaxis NPO Routine labs Other orders as indicated above Code status: Full code <Cristal Ackerman - Last Filed: 03/20/17 16:45> H&P History of Present Illness - General Admit Problem/Dx: Admission Diagnosis/Problem Admission Diagnosis/Problem Hypokalemia Exam - Vital Signs Vital Signs: Last Vital Signs Temp 36.8 C 03/20/17 15:22 Pulse 66 03/20/17 15:22 Resp 14 03/20/17 15:22 BP 151/51 H 03/20/17 15:33 Pulse Ox 97 03/20/17 15:22 - Patient Data Lab Results Last 24 hrs: Laboratory Results - last 24 hr 03/20/17 03/20/17 03/20/17 Range/Units 06:00 06:00 06:00 WBC 7.92 (3.98-10.04) K/mm3 RBC 3.84 L (3.98-5.22) M/mm3 Hgb 10.6 L (11.2-15.7) gm/L Hct 34.0 L (34.1-44.9) % MCV 88.5 (79.4-94.8) fl MCH 27.6 (25.6-32.2) pg MCHC 31.2 L (32.2-35.5) g/dl RDW Std Deviation 48.4 H (36.4-46.3) fL Plt Count 259 (182-369) K/mm3 MPV 10.7 (9.4-12.3) fl Neut % (Auto) 74.0 H (34.0-71.1) % Lymph % (Auto) 16.2 L (19.3-51.7) % [place] % (Auto) 9.1 (4.7-12.5) % Eos % (Auto) 0.3 L (0.7-5.8) Baso % (Auto) 0.0 L (0.1-1.2) % Neut # (Auto) 5.87 (1.56-6.13) K/mm3 Lymph # (Auto) 1.28 (1.18-3.74) K/mm3 [place] # (Auto) 0.72 H (0.24-0.36) K/mm3 Eos # (Auto) 0.02 L (0.04-0.36) K/mm3 Baso # (Auto) 0.00 L (0.01-0.08) K/mm3 Sodium 139 (136-145) mEq/L Potassium 3.8 (3.5-5.1) mEq/L Chloride 104 (98-107) mEq/L Carbon Dioxide 21 (21-32) mEq/L Anion Gap 17.8 H (5-15) BUN 14 (7-18) mg/dL Creatinine 0.9 (0.55-1.02) mg/dL Est Cr Clr Drug Dosing 33.42 mL/min Estimated GFR (MDRD) 60 (>60) mL/min BUN/Creatinine Ratio 15.6 (14-18) Glucose 152 H (83-115) mg/dL POC Glucose (83-110) mg/dL Lactic Acid 1.8 (0.4-2.0) mmol/L Calcium 7.8 L (8.5-10.1) mg/dL Magnesium 2.4 (1.8-2.4) mg/dl C-Reactive Protein 1.0 (<1.0) mg/dL 03/20/17 03/20/17 Range/Units 06:15 12:38 WBC (3.98-10.04) K/mm3 RBC (3.98-5.22) M/mm3 Hgb (11.2-15.7) gm/L Hct (34.1-44.9) % MCV (79.4-94.8) fl MCH (25.6-32.2) pg MCHC (32.2-35.5) g/dl RDW Std Deviation (36.4-46.3) fL Plt Count (182-369) K/mm3 MPV (9.4-12.3) fl Neut % (Auto) (34.0-71.1) % Lymph % (Auto) (19.3-51.7) % [place] % (Auto) (4.7-12.5) % Eos % (Auto) (0.7-5.8) Baso % (Auto) (0.1-1.2) % Neut # (Auto) (1.56-6.13) K/mm3 Lymph # (Auto) (1.18-3.74) K/mm3 [place] # (Auto) (0.24-0.36) K/mm3 Eos # (Auto) (0.04-0.36) K/mm3 Baso # (Auto) (0.01-0.08) K/mm3 Sodium (136-145) mEq/L Potassium (3.5-5.1) mEq/L Chloride (98-107) mEq/L Carbon Dioxide (21-32) mEq/L Anion Gap (5-15) BUN (7-18) mg/dL Creatinine (0.55-1.02) mg/dL Est Cr Clr Drug Dosing mL/min Estimated GFR (MDRD) (>60) mL/min BUN/Creatinine Ratio (14-18) Glucose (83-115) mg/dL POC Glucose 160 H 107 (83-110) mg/dL Lactic Acid (0.4-2.0) mmol/L Calcium (8.5-10.1) mg/dL Magnesium (1.8-2.4) mg/dl C-Reactive Protein (<1.0) mg/dL Result Diagrams: 03/20/17 06:00 03/20/17 06:00 *Q Meaningful Use (ADM) - VTE *Q VTE Criteria *Q: - Stroke *Q Stroke Criteria *Q: - AMI *Q AMI Criteria *Q: Orders Last 24hrs: Active Orders 24 hr Category Date Time Status Admission Status [Patient Status] [ADT] Routine ADT 03/19/17 23:58 Active Antiembolic Devices [RC] 09, Care 03/20/17 00:23 Active Blood Glucose Check, Bedside [RC] Q6HR Care 03/20/17 00:14 Active Oxygen Therapy [RC] ASDIRECTED Care 03/20/17 00:30 Active Consult to Case Management [CONS] Routine Cons 03/20/17 00:21 Active OT Evaluation and Treatment [CONS] Routine Cons 03/20/17 00:20 Active PT Evaluation and Treatment [CONS] Routine Cons 03/20/17 00:20 Active NPO [Nothing Per Oral Diet] [DIET] Diet 03/20/17 Breakfast Active CULTURE BLOOD [BC] Stat Lab 03/20/17 00:40 Received CULTURE BLOOD [BC] Stat Lab 03/20/17 00:58 Received CULTURE STOOL + SHIGATOX [RM] Routine Lab 03/20/17 11:17 Uncollected CULTURE URINE [RM] Routine Lab 03/20/17 00:25 Results OVA & PARASITES BY IMMUNOASSAY [MREF] Routine Lab 03/20/17 11:17 Uncollected TSH [CHEM] Routine Lab 03/20/17 15:52 Ordered WBC, STOOL [OP] Routine Lab 03/20/17 11:17 Uncollected Albuterol/Ipratropium [DuoNeb 3.0-0.5 MG/3 ML] Med 03/20/17 10:00 Active 3 ml NEB QIDRT Alum Hydrox/Mag Hydrox/Simeth [Mag-Al Plus] Med 03/20/17 06:23 Active 30 ml PO ASDIRECTED PRN Aspirin Med 03/20/17 09:00 Active 81 mg PO DAILY Cholecalciferol (Vitamin D3) [Vitamin D3] Med 03/20/17 09:00 Active 1,000 units PO DAILY Dicyclomine [Bentyl] Med 03/20/17 12:00 Active 20 mg PO Q6HR Docusate Sodium [Colace] Med 03/20/17 09:00 Active 200 mg PO BID Enoxaparin [Lovenox] Med 03/20/17 09:00 Active 30 mg SUBCUT DAILY Furosemide [Lasix] Med 03/20/17 09:00 Active 10 mg PO DAILY HYDROmorphone [Dilaudid] Med 03/20/17 00:18 Active 0.5 mg IVPUSH Q6H PRN LORazepam [Ativan] Med 03/20/17 21:00 Active 0.5 mg PO BEDTIME Levofloxacin/Dextrose 5%-Water [Levaquin in D5W 750 MG/ Med 03/22/17 05:00 Active 150 ML] 750 mg Premix Bag 1 bag IV Q48H Levothyroxine [Synthroid] Med 03/20/17 06:45 Active 50 mcg PO ACBREAKFAST Losartan [Cozaar] Med 03/20/17 09:00 Active 100 mg PO DAILY Losartan [Cozaar] Med 03/20/17 09:00 Active 50 mg PO DAILY Metoprolol Succinate [Toprol XL] Med 03/20/17 09:00 Active 25 mg PO BID Morphine Med 03/20/17 00:18 Active 1 mg IVPUSH Q4H PRN Ondansetron [Zofran] Med 03/20/17 10:06 Active 4 mg IVPUSH Q4H PRN Pantoprazole [ProTONIX] Med 03/20/17 07:00 Active 40 mg PO DAILY@0700 Patient's Own Medication [Ptom] Med 03/21/17 09:00 Active 0 each VAG MOWEFR Polyethylene Glycol 3350 [MiraLAX] Med 03/20/17 09:00 Active 17 gm PO DAILY Saccharomyces Boulardii [Florastor] Med 03/20/17 10:30 Active 250 mg PO BID Sertraline [Zoloft] Med 03/21/17 09:00 Active 50 mg PO DAILY Simvastatin [Zocor] Med 03/20/17 21:00 Active 20 mg PO BEDTIME Sucralfate [Carafate] Med 03/20/17 07:00 Active 1 gm PO QIDACANDBED Temazepam [Restoril] Med 03/20/17 00:16 Active 7.5 mg PO BEDTIME PRN amLODIPine [Norvasc] Med 03/20/17 09:00 Active 5 mg PO DAILY hydrALAZINE [Apresoline] Med 03/20/17 16:02 Active 10 mg IVPUSH Q8H PRN metroNIDAZOLE/Normal Saline [Flagyl 500 MG in NS 100 ML Med 03/20/17 00:30 Active ] 500 mg Premix Bag 1 bag IV Q8H traMADol [Ultram] Med 03/20/17 06:23 Active 50 mg PO Q6H PRN Blood Culture x2 Reflex Set [OM.PC] Stat Oth 03/20/17 00:25 Ordered KYLER Hose [Antiembolic Hose] [OM.PC] Routine Oth 03/20/17 00:23 Ordered Resuscitation Status Routine Resus Stat 03/20/17 09:06 Ordered Medication Orders Al Hydroxide/Mg Hydroxide (Mag-Al Plus) 30 ml PO ASDIRECTED PRN PRN Reason: Heartburn Albuterol/Ipratropium (Duoneb 3.0-0.5 Mg/3 Ml) 3 ml NEB QIDRT [facility] Last Admin: 03/20/17 10:01 Dose: Not Given Amlodipine Besylate (Norvasc) 5 mg PO DAILY [facility] Last Admin: 03/20/17 08:33 Dose: 5 mg Aspirin (Aspirin) 81 mg PO DAILY [facility] Last Admin: 03/20/17 08:30 Dose: 81 mg Cholecalciferol (Vitamin D3) 1,000 units PO DAILY [facility] Last Admin: 03/20/17 08:34 Dose: 1,000 units Dicyclomine HCl (Bentyl) 20 mg PO Q6HR [facility] Last Admin: 03/20/17 11:12 Dose: 20 mg Docusate Sodium (Colace) 200 mg PO BID [facility] Last Admin: 03/20/17 08:26 Dose: 200 mg Enoxaparin Sodium (Lovenox) 30 mg SUBCUT DAILY [facility] Last Admin: 03/20/17 08:38 Dose: 30 mg Furosemide (Lasix) 10 mg PO DAILY [facility] Last Admin: 03/20/17 08:27 Dose: 10 mg Hydralazine HCl (Apresoline) 10 mg IVPUSH Q8H PRN PRN Reason: Hypertension Hydromorphone HCl (Dilaudid) 0.5 mg IVPUSH Q6H PRN PRN Reason: Pain Last Admin: 03/20/17 09:56 Dose: 0.5 mg Metronidazole 500 mg/ Premix 100 mls @ 100 mls/hr IV Q8H [facility] Last Admin: 03/20/17 15:41 Dose: 100 mls/hr Infusion: 03/20/17 09:38 Dose: 100 mls/hr Admin: 03/20/17 08:38 Dose: 100 mls/hr Infusion: 03/20/17 02:28 Dose: 100 mls/hr Admin: 03/20/17 01:28 Dose: 100 mls/hr Levofloxacin/Dextrose 750 mg/ (Premix) 150 mls @ 100 mls/hr IV Q48H [facility] Levothyroxine Sodium (Synthroid) 50 mcg PO ACBREAKFAST [facility] Last Admin: 03/20/17 09:08 Dose: 50 mcg Lorazepam (Ativan) 0.5 mg PO BEDTIME [facility] Losartan Potassium (Cozaar) 100 mg PO DAILY [facility] Last Admin: 03/20/17 08:35 Dose: 100 mg Losartan Potassium (Cozaar) 50 mg PO DAILY [facility] Last Admin: 03/20/17 08:26 Dose: 50 mg Metoprolol Succinate (Toprol Xl) 25 mg PO BID [facility] Last Admin: 03/20/17 08:32 Dose: 25 mg Morphine Sulfate (Morphine) 1 mg IVPUSH Q4H PRN PRN Reason: Pain Ondansetron HCl (Zofran) 4 mg IVPUSH Q4H PRN PRN Reason: nausea Pantoprazole Sodium (Protonix) 40 mg PO DAILY@0700 [facility] Last Admin: 03/20/17 08:31 Dose: 40 mg Estradiol [Yuvafem] (10 Mcg) 0 each VAG MOWEFR [facility] Polyethylene Glycol (Miralax) 17 gm PO DAILY [facility] Last Admin: 03/20/17 08:37 Dose: 17 gm Saccharomyces Boulardii (Florastor) 250 mg PO BID [facility] Last Admin: 03/20/17 11:12 Dose: 250 mg Sertraline HCl (Zoloft) 50 mg PO DAILY [facility] Simvastatin (Zocor) 20 mg PO BEDTIME [facility] Sucralfate (Carafate) 1 gm PO QIDACANDBED [facility] Last Admin: 03/20/17 11:13 Dose: 1 gm Admin: 03/20/17 08:36 Dose: 1 gm Temazepam (Restoril) 7.5 mg PO BEDTIME PRN PRN Reason: Insomnia Tramadol HCl (Ultram) 50 mg PO Q6H PRN PRN Reason: Pain Last Admin: 03/20/17 15:41 Dose: 50 mg Assessment/Plan Comment:: See plan as outlined above, agree as written.
[2017-03-20] MEDS: traMADol 50 MG Tab PO PRN (15:41)
[2017-03-20] MEDS: Morphine 2 MG/ML Syringe IVPUSH PRN (19:45)
[2017-03-20] MEDS: LORazepam 0.5 MG Tab PO SCH (20:26)
[2017-03-20] MEDS: Simvastatin 20 MG Tab PO SCH (20:26)
[2017-03-21] MEDS: metroNIDAZOLE/Normal Saline 500 MG in Premix Bag 1 BAG IV SCH ×3 (00:42→15:37)
[2017-03-21] MEDS: Dicyclomine 10 MG Cap PO SCH ×6 (00:42→23:03)
[2017-03-21] MEDS: Morphine 2 MG/ML Syringe IVPUSH PRN ×2 (03:07→08:56)
[2017-03-21] MEDS: Levothyroxine 50 MCG Tab PO SCH (05:20)
[2017-03-21] MEDS: Albuterol/Ipratropium 3.0-0.5 MG/3 ML Neb Soln NEB SCH ×4 (06:06→23:05)
[2017-03-21] MEDS: Pantoprazole 40 MG Tab.CR PO SCH (06:27)
[2017-03-21] MEDS: Sucralfate Suspension 1 GM/10 ML Cup PO SCH ×5 (06:27→21:29)
[2017-03-21] MEDS: Docusate Sodium 100 MG Cap PO SCH ×2 (08:30→20:30)
[2017-03-21] MEDS: Aspirin 81 MG Tab.Chew PO SCH (08:30)
[2017-03-21] MEDS: Losartan 100 MG Tab PO SCH (08:31)
[2017-03-21] MEDS: Losartan 25 MG Tab PO SCH (08:32)
[2017-03-21] MEDS: Saccharomyces Boulardii (Probiotic) 250 MG Cap PO SCH ×2 (08:33→20:29)
[2017-03-21] MEDS: Furosemide 20 MG Tab PO SCH (08:34)
[2017-03-21] MEDS: Enoxaparin 30 MG/0.3 ML Syringe SUBCUT SCH (08:34)
[2017-03-21] MEDS: amLODIPine 5 MG Tab PO SCH (08:35)
[2017-03-21] MEDS: Polyethylene Glycol 3350 Powder 17 GM Packet PO SCH (08:35)
[2017-03-21] MEDS: Cholecalciferol (Vitamin D3) 1,000 Unit Tab PO SCH (08:36)
[2017-03-21] MEDS: Metoprolol Succinate 25 MG Tab.ER PO SCH ×2 (08:38→20:24)
[2017-03-21] MEDS: Sertraline 50 MG Tab PO SCH (08:41)
[2017-03-21] MEDS: Estradiol [Yuvafem] 10 MCG VAG SCH (08:44)
[2017-03-21] MEDS ORDERED: Sodium Chloride 0.9% 1,000 ML IV SCH (09:00)
[2017-03-21] MEDS ORDERED: Magnesium Sulfate/Water 2 GM in Premix Bag 1 BAG IV ONE (10:15)
[2017-03-21] MEDS ORDERED: Potassium Chloride 10% 20 MEQ/15 ML Soln 30 ML UD Cup PO ONE (12:00)
[2017-03-21] MEDS: HYDROmorphone 0.5 MG/0.5 ML Syringe IVPUSH PRN ×2 (12:05→22:27)
--- NOTE | 2017-03-21 13:27 | PCM.PN ---
<Reg Castillo - Last Filed: 03/21/17 14:52> - General Info Date of Service: 03/21/17 Admission Dx/Problem (Free Text): Admission Diagnosis/Problem Admission Diagnosis/Problem Hypokalemia Functional Status: Reports: Ambulating, Urinating - Review of Systems General: Reports: No Symptoms HEENT: Reports: No Symptoms Pulmonary: Reports: No Symptoms Cardiovascular: Reports: No Symptoms Gastrointestinal: Reports: Abdominal Pain (Lower quadrants ). Denies: Constipation, Diarrhea, Nausea, Vomiting Genitourinary: Reports: Frequency, Urgency. Denies: Dysuria, Flank Pain Musculoskeletal: Reports: No Symptoms Skin: Reports: No Symptoms Neurological: Reports: No Symptoms Psychiatric: Reports: No Symptoms - Patient Data Vitals - Most Recent: Last Vital Signs Temp 97.5 F 03/21/17 08:27 Pulse 67 03/21/17 08:38 Resp 18 03/21/17 08:27 BP 159/71 H 03/21/17 08:38 Pulse Ox 93 L 03/21/17 09:06 Weight - Most Recent: 90.265 kg I&O - Last 24 Hours: Intake & Output 03/20/17 03/21/17 03/21/17 22:59 06:59 14:59 Intake Total 100 200 Output Total 450 900 Balance -350 -700 Lab Results Last 24 Hours: Laboratory Results - last 24 hr 03/20/17 03/20/17 03/21/17 Range/Units 18:06 19:50 00:44 WBC (3.98-10.04) K/mm3 RBC (3.98-5.22) M/mm3 Hgb (11.2-15.7) gm/L Hct (34.1-44.9) % MCV (79.4-94.8) fl MCH (25.6-32.2) pg MCHC (32.2-35.5) g/dl RDW Std Deviation (36.4-46.3) fL Plt Count (182-369) K/mm3 MPV (9.4-12.3) fl Neut % (Auto) (34.0-71.1) % Lymph % (Auto) (19.3-51.7) % [place] % (Auto) (4.7-12.5) % Eos % (Auto) (0.7-5.8) Baso % (Auto) (0.1-1.2) % Neut # (Auto) (1.56-6.13) K/mm3 Lymph # (Auto) (1.18-3.74) K/mm3 [place] # (Auto) (0.24-0.36) K/mm3 Eos # (Auto) (0.04-0.36) K/mm3 Baso # (Auto) (0.01-0.08) K/mm3 Sodium (136-145) mEq/L Potassium (3.5-5.1) mEq/L Chloride (98-107) mEq/L Carbon Dioxide (21-32) mEq/L Anion Gap (5-15) BUN (7-18) mg/dL Creatinine (0.55-1.02) mg/dL Est Cr Clr Drug Dosing mL/min Estimated GFR (MDRD) (>60) mL/min BUN/Creatinine Ratio (14-18) Glucose (83-115) mg/dL POC Glucose 127 H 96 (83-110) mg/dL Calcium (8.5-10.1) mg/dL Magnesium (1.8-2.4) mg/dl C-Reactive Protein (<1.0) mg/dL TSH 3rd Generation 0.455 (0.358-3.74) uIU/mL 03/21/17 03/21/17 03/21/17 Range/Units 05:19 06:33 06:33 WBC 9.61 (3.98-10.04) K/mm3 RBC 4.08 (3.98-5.22) M/mm3 Hgb 11.4 (11.2-15.7) gm/L Hct 36.7 (34.1-44.9) % MCV 90.0 (79.4-94.8) fl MCH 27.9 (25.6-32.2) pg MCHC 31.1 L (32.2-35.5) g/dl RDW Std Deviation 50.3 H (36.4-46.3) fL Plt Count 278 (182-369) K/mm3 MPV 10.2 (9.4-12.3) fl Neut % (Auto) 77.5 H (34.0-71.1) % Lymph % (Auto) 12.7 L (19.3-51.7) % [place] % (Auto) 8.9 (4.7-12.5) % Eos % (Auto) 0.5 L (0.7-5.8) Baso % (Auto) 0.1 (0.1-1.2) % Neut # (Auto) 7.44 H (1.56-6.13) K/mm3 Lymph # (Auto) 1.22 (1.18-3.74) K/mm3 [place] # (Auto) 0.86 H (0.24-0.36) K/mm3 Eos # (Auto) 0.05 (0.04-0.36) K/mm3 Baso # (Auto) 0.01 (0.01-0.08) K/mm3 Sodium 140 (136-145) mEq/L Potassium 3.6 (3.5-5.1) mEq/L Chloride 103 (98-107) mEq/L Carbon Dioxide 29 (21-32) mEq/L Anion Gap 11.6 (5-15) BUN 13 (7-18) mg/dL Creatinine 1.0 (0.55-1.02) mg/dL Est Cr Clr Drug Dosing 30.08 mL/min Estimated GFR (MDRD) 53 (>60) mL/min BUN/Creatinine Ratio 13.0 L (14-18) Glucose 114 (83-115) mg/dL POC Glucose 92 (83-110) mg/dL Calcium 8.6 (8.5-10.1) mg/dL Magnesium 1.6 L (1.8-2.4) mg/dl C-Reactive Protein 0.8 (<1.0) mg/dL TSH 3rd Generation (0.358-3.74) uIU/mL [place] Results Last 24 Hours: Microbiology 03/20/17 00:58 Aerobic Blood Culture - Preliminary Blood - Venous - Lab Draw NO GROWTH AFTER 1 DAY Anaerobic Blood Culture - Preliminary NO GROWTH AFTER 1 DAY 03/20/17 00:40 Aerobic Blood Culture - Preliminary Blood - Venous NO GROWTH AFTER 1 DAY Anaerobic Blood Culture - Preliminary NO GROWTH AFTER 1 DAY Med Orders - Current: Current Medications Al Hydroxide/Mg Hydroxide (Mag-Al Plus) 30 ml PO ASDIRECTED PRN PRN Reason: Heartburn Albuterol/Ipratropium (Duoneb 3.0-0.5 Mg/3 Ml) 3 ml NEB QIDRT SHREYA Last Admin: 03/21/17 09:05 Dose: 3 ml Amlodipine Besylate (Norvasc) 5 mg PO DAILY [facility] Last Admin: 03/21/17 08:35 Dose: 5 mg Aspirin (Aspirin) 81 mg PO DAILY [facility] Last Admin: 03/21/17 08:30 Dose: 81 mg Cholecalciferol (Vitamin D3) 1,000 units PO DAILY [facility] Last Admin: 03/21/17 08:36 Dose: 1,000 units Dicyclomine HCl (Bentyl) 20 mg PO Q6HR [facility] Last Admin: 03/21/17 11:12 Dose: 20 mg Docusate Sodium (Colace) 200 mg PO BID [facility] Last Admin: 03/21/17 08:30 Dose: 200 mg Enoxaparin Sodium (Lovenox) 30 mg SUBCUT DAILY [facility] Last Admin: 03/21/17 08:34 Dose: 30 mg Furosemide (Lasix) 10 mg PO DAILY [facility] Last Admin: 03/21/17 08:34 Dose: 10 mg Hydralazine HCl (Apresoline) 10 mg IVPUSH Q8H PRN PRN Reason: Hypertension Hydromorphone HCl (Dilaudid) 0.5 mg IVPUSH Q6H PRN PRN Reason: Pain Last Admin: 03/21/17 12:05 Dose: 0.5 mg Metronidazole 500 mg/ Premix 100 mls @ 100 mls/hr IV Q8H [facility] Last Admin: 03/21/17 08:22 Dose: 100 mls/hr Levofloxacin/Dextrose 750 mg/ (Premix) 150 mls @ 100 mls/hr IV Q48H [facility] Sodium Chloride (Normal Saline) 1,000 mls @ 100 mls/hr IV ASDIRECTED [facility] Levothyroxine Sodium (Synthroid) 50 mcg PO ACBREAKFAST [facility] Last Admin: 03/21/17 05:20 Dose: 50 mcg Lorazepam (Ativan) 0.5 mg PO BEDTIME [facility] Last Admin: 03/20/17 20:26 Dose: 0.5 mg Losartan Potassium (Cozaar) 100 mg PO DAILY [facility] Last Admin: 03/21/17 08:31 Dose: 100 mg Losartan Potassium (Cozaar) 50 mg PO DAILY [facility] Last Admin: 03/21/17 08:32 Dose: 50 mg Metoprolol Succinate (Toprol Xl) 25 mg PO BID [facility] Last Admin: 03/21/17 08:38 Dose: 25 mg Morphine Sulfate (Morphine) 1 mg IVPUSH Q4H PRN PRN Reason: Pain Last Admin: 03/21/17 08:56 Dose: 1 mg Ondansetron HCl (Zofran) 4 mg IVPUSH Q4H PRN PRN Reason: nausea Pantoprazole Sodium (Protonix) 40 mg PO DAILY@0700 [facility] Last Admin: 03/21/17 06:27 Dose: 40 mg Estradiol [Yuvafem] (10 Mcg) 0 each VAG MOWEFR [facility] Last Admin: 03/21/17 08:44 Dose: Not Given Polyethylene Glycol (Miralax) 17 gm PO DAILY [facility] Last Admin: 03/21/17 08:35 Dose: 17 gm Saccharomyces Boulardii (Florastor) 250 mg PO BID [facility] Last Admin: 03/21/17 08:33 Dose: 250 mg Sertraline HCl (Zoloft) 50 mg PO DAILY [facility] Last Admin: 03/21/17 08:41 Dose: 50 mg Simvastatin (Zocor) 20 mg PO BEDTIME [facility] Last Admin: 03/20/17 20:26 Dose: 20 mg Sucralfate (Carafate) 1 gm PO QIDACANDBED [facility] Last Admin: 03/21/17 11:13 Dose: 1 gm Temazepam (Restoril) 7.5 mg PO BEDTIME PRN PRN Reason: Insomnia Tramadol HCl (Ultram) 50 mg PO Q6H PRN PRN Reason: Pain Last Admin: 03/20/17 15:41 Dose: 50 mg Discontinued Medications Sodium Chloride (Normal Saline) 500 mls @ 999 mls/hr IV .BOLUS ONE Stop: 03/19/17 20:47 Last Admin: 03/19/17 20:42 Dose: 999 mls/hr Magnesium Sulfate 2 gm/ Premix 50 mls @ 50 mls/hr IV ONETIME ONE Stop: 03/19/17 23:11 Last Admin: 03/19/17 22:53 Dose: 50 mls/hr Sodium Chloride (Normal Saline) 1,000 mls @ 150 mls/hr IV ASDIRECTED [facility] Potassium Chloride/Dextrose/Sod Cl (D5 Ns With 20 Meq Kcl) 1,000 mls @ 100 mls/ hr IV ASDIRECTED [facility] Stop: 03/20/17 07:00 Last Admin: 03/20/17 01:02 Dose: 100 mls/hr Magnesium Sulfate 2 gm/ Premix 50 mls @ 25 mls/hr IV ONETIME ONE Stop: 03/20/17 02:14 Last Admin: 03/20/17 02:55 Dose: 25 mls/hr Levofloxacin/Dextrose 750 mg/ (Premix) 150 mls @ 100 mls/hr IV ONETIME ONE Stop: 03/20/17 02:08 Last Admin: 03/20/17 04:53 Dose: 100 mls/hr Levofloxacin/Dextrose 750 mg/ (Premix) 150 mls @ 100 mls/hr IV Q24H [facility] Last Admin: 03/20/17 06:53 Dose: Not Given Magnesium Sulfate 2 gm/ Premix 50 mls @ 25 mls/hr IV ONETIME ONE Stop: 03/21/17 12:14 Last Admin: 03/21/17 11:07 Dose: 25 mls/hr Ondansetron HCl (Zofran) 4 mg IVPUSH ONETIME ONE Stop: 03/19/17 20:18 Last Admin: 03/19/17 20:43 Dose: 4 mg Potassium Chloride (Potassium Chloride Solution) 60 meq PO ONETIME ONE Stop: 03/20/17 00:17 Last Admin: 03/20/17 01:30 Dose: 60 meq Potassium Chloride (Potassium Chloride) 60 meq PO ONETIME ONE Stop: 03/21/17 12:01 Last Admin: 03/21/17 11:13 Dose: 60 meq - Exam Quality Assessment: Supplemental Oxygen, DVT Prophylaxis. No: Skin Breakdown General: Alert, Oriented, Cooperative HEENT: Pupils Equal, Pupils Reactive, Mucous Membr. Moist/[place] Neck: Supple, Trachea Midline, No JVD Lungs: Clear to Auscultation, Normal Respiratory Effort Cardiovascular: Regular Rate, Other (Systolic murmur ) GI/Abdominal Exam: Soft, No Organomegaly, No Distention, No Mass, Tender (Lower quadrants ), Abnormal Bowel Sounds (hyperactive ) (Female) Exam: Deferred Back Exam: Normal Inspection Extremities: Normal Inspection, Normal Range of Motion, Non-Tender, No Pedal Edema, Normal Capillary Refill Peripheral Pulses: 2+: Radial (L), Radial (R), Posterior Tibial (L), Posterior Tibial (R), Dorsalis Pedis (L), Dorsalis Pedis (R) Skin: Warm, Dry, Intact Neurological: No New Focal Deficit Psy/Mental Status: Alert, Normal Affect, Normal Mood Physical Findings Comments:: Patient was found laying in bed asleep. She awakens for examination. Reports abdominal pain but no other complaints. She does not appear to be in any distress. She does not have a white count and her CRP are normal, however she has been on antibiotics. - Problem List & Annotations (1) Colitis SNOMED Code(s): 14056989 Code(s): K52.9 - NONINFECTIVE GASTROENTERITIS AND COLITIS, UNSPECIFIED Status: Acute Priority: High Current Visit: Yes (2) Hypokalemia SNOMED Code(s): 03906488 Code(s): E87.6 - HYPOKALEMIA Status: Resolved Priority: High Current Visit: Yes (3) Hypomagnesemia SNOMED Code(s): 673873481 Code(s): E83.42 - HYPOMAGNESEMIA Status: Acute Priority: High Current Visit: Yes (4) Diabetes SNOMED Code(s): 61655973 Code(s): E11.9 - TYPE 2 DIABETES MELLITUS WITHOUT COMPLICATIONS Status: Acute Priority: Medium Current Visit: Yes QualifierTitle: Diabetes mellitus type: type 2 Diabetes mellitus complication status: without complication 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 Code(s): E11.9 - Type 2 diabetes mellitus without complications (5) Generalized weakness SNOMED Code(s): 35526520 Code(s): R53.1 - WEAKNESS Status: Resolved Priority: Medium Current Visit: Yes (6) Congestive heart failure (CHF) SNOMED Code(s): 94596097 Code(s): I50.9 - HEART FAILURE, UNSPECIFIED Status: Acute Priority: Low Current Visit: No QualifierTitle: Congestive heart failure type: unspecified congestive heart failure type Congestive heart failure chronicity: acute on chronic Qualified Code(s): I50.9 - Heart failure, unspecified - Problem List Review Problem List Initiated/Reviewed/Updated: Yes - My Orders Last 24 Hours: My Active Orders 03/20/17 16:02 hydrALAZINE [Apresoline] 10 mg IVPUSH Q8H PRN 03/21/17 09:00 Sodium Chloride 0.9% [Normal Saline] 1,000 ml IV ASDIRECTED 03/22/17 06:20 BASIC METABOLIC PANEL,BMP [CHEM] DAILY MAGNESIUM [CHEM] DAILY 03/22/17 06:30 CBC WITH AUTO DIFF [HEME] DAILY 03/23/17 06:20 BASIC METABOLIC PANEL,BMP [CHEM] DAILY MAGNESIUM [CHEM] DAILY 03/23/17 06:30 CBC WITH AUTO DIFF [HEME] DAILY 03/24/17 06:20 BASIC METABOLIC PANEL,BMP [CHEM] DAILY MAGNESIUM [CHEM] DAILY 03/24/17 06:30 CBC WITH AUTO DIFF [HEME] DAILY - Plan Plan:: I/P Acute: Colitis -Acute abdominal pain -No history of colitis -C/O non-bloody diarrhea -WBC normal at 7.23, 9.61 today -CRP 1.0, 0.8 today -CT scan on 03/19/17 noting "mild, non-specific left ramsey-colitis" along with "colonic diverticulosis" -Patients brings in paperwork from colonoscopy preformed in [place] on 09/2016 noting severe diverticulitis in sigmoid colon, at that time no inflammation was noted. -Patient started on Flagyl 500mg and Levaquin 750mg in D5W. -C. Diff negative -Ordered stool culture, WBC, and O&P - NPO, consider advancing to clear liquids as tolerated. Hypomagnesemia - 0.9 in ED, 2.4 (03/20/17). 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 - Culture shows no growth after 1 day. Chronic: Diabetes -Insulin per protocol -Monitor glucose as directed Hypothyroidism -TSH 0.455 (on 03/20/17) HTN Hypercholesteremia GERD Anxiety Depression Plan: SW/CM for discharge planning PT/OT DVT/GI prophylaxis NPO - consider advancing to clear liquids if tolerated Routine labs Other orders as indicated above Code status: Full code <Cristal Ackerman - Last Filed: 03/22/17 14:30> - Patient Data Vitals - Most Recent: Last Vital Signs Temp 36.8 C 03/22/17 08:23 Pulse 70 03/22/17 08:33 Resp 18 03/22/17 08:23 BP 135/78 03/22/17 08:33 Pulse Ox 99 03/22/17 09:19 I&O - Last 24 Hours: Intake & Output 03/21/17 03/22/17 03/22/17 22:59 06:59 14:59 Intake Total 440 1224 Output Total 750 1100 Balance -310 124 Lab Results Last 24 Hours: Laboratory Results - last 24 hr 03/21/17 03/21/17 03/22/17 Range/Units 15:11 20:46 05:55 WBC (3.98-10.04) K/mm3 RBC (3.98-5.22) M/mm3 Hgb (11.2-15.7) gm/L Hct (34.1-44.9) % MCV (79.4-94.8) fl MCH (25.6-32.2) pg MCHC (32.2-35.5) g/dl RDW Std Deviation (36.4-46.3) fL Plt Count (182-369) K/mm3 MPV (9.4-12.3) fl Neut % (Auto) (34.0-71.1) % Lymph % (Auto) (19.3-51.7) % [place] % (Auto) (4.7-12.5) % Eos % (Auto) (0.7-5.8) Baso % (Auto) (0.1-1.2) % Neut # (Auto) (1.56-6.13) K/mm3 Lymph # (Auto) (1.18-3.74) K/mm3 [place] # (Auto) (0.24-0.36) K/mm3 Eos # (Auto) (0.04-0.36) K/mm3 Baso # (Auto) (0.01-0.08) K/mm3 Sodium 140 (136-145) mEq/L Potassium 3.5 (3.5-5.1) mEq/L Chloride 104 (98-107) mEq/L Carbon Dioxide 28 (21-32) mEq/L Anion Gap 11.5 (5-15) BUN 9 (7-18) mg/dL Creatinine 0.8 (0.55-1.02) mg/dL Est Cr Clr Drug Dosing 37.60 mL/min Estimated GFR (MDRD) > 60 (>60) mL/min BUN/Creatinine Ratio 11.3 L (14-18) Glucose 130 H (83-115) mg/dL POC Glucose 120 H 122 H (83-110) mg/dL Calcium 7.8 L (8.5-10.1) mg/dL Magnesium 1.6 L (1.8-2.4) mg/dl 03/22/17 03/22/17 03/22/17 Range/Units 05:55 06:04 11:56 WBC 5.67 (3.98-10.04) K/mm3 RBC 3.66 L (3.98-5.22) M/mm3 Hgb 10.1 L (11.2-15.7) gm/L Hct 33.0 L (34.1-44.9) % MCV 90.2 (79.4-94.8) fl MCH 27.6 (25.6-32.2) pg MCHC 30.6 L (32.2-35.5) g/dl RDW Std Deviation 50.1 H (36.4-46.3) fL Plt Count 247 (182-369) K/mm3 MPV 11.2 (9.4-12.3) fl Neut % (Auto) 68.3 (34.0-71.1) % Lymph % (Auto) 16.6 L (19.3-51.7) % [place] % (Auto) 12.2 (4.7-12.5) % Eos % (Auto) 2.5 (0.7-5.8) Baso % (Auto) 0.2 (0.1-1.2) % Neut # (Auto) 3.88 (1.56-6.13) K/mm3 Lymph # (Auto) 0.94 L (1.18-3.74) K/mm3 [place] # (Auto) 0.69 H (0.24-0.36) K/mm3 Eos # (Auto) 0.14 (0.04-0.36) K/mm3 Baso # (Auto) 0.01 (0.01-0.08) K/mm3 Sodium (136-145) mEq/L Potassium (3.5-5.1) mEq/L Chloride (98-107) mEq/L Carbon Dioxide (21-32) mEq/L Anion Gap (5-15) BUN (7-18) mg/dL Creatinine (0.55-1.02) mg/dL Est Cr Clr Drug Dosing mL/min Estimated GFR (MDRD) (>60) mL/min BUN/Creatinine Ratio (14-18) Glucose (83-115) mg/dL POC Glucose 118 H 121 H (83-110) mg/dL Calcium (8.5-10.1) mg/dL Magnesium (1.8-2.4) mg/dl [place] Results Last 24 Hours: Microbiology 03/20/17 00:58 Aerobic Blood Culture - Preliminary Blood - Venous - Lab Draw NO GROWTH AFTER 2 DAYS Anaerobic Blood Culture - Preliminary NO GROWTH AFTER 2 DAYS 03/20/17 00:40 Aerobic Blood Culture - Preliminary Blood - Venous NO GROWTH AFTER 2 DAYS Anaerobic Blood Culture - Preliminary NO GROWTH AFTER 2 DAYS 03/21/17 20:25 Stool for WBCs - Final Stool / Feces NO WBC SEEN Med Orders - Current: Current Medications Hydrocodone Bitart/Acetaminophen ([place] 325-10 Mg) 1 tab PO Q6H PRN PRN Reason: Pain (moderate 4-6) Last Admin: 03/22/17 10:51 Dose: 1 tab Al Hydroxide/Mg Hydroxide (Mag-Al Plus) 30 ml PO ASDIRECTED PRN PRN Reason: Heartburn Albuterol/Ipratropium (Duoneb 3.0-0.5 Mg/3 Ml) 3 ml NEB QIDRT [facility] Last Admin: 03/22/17 09:18 Dose: 3 ml Amlodipine Besylate (Norvasc) 5 mg PO DAILY [facility] Last Admin: 03/22/17 08:32 Dose: 5 mg Aspirin (Aspirin) 81 mg PO DAILY [facility] Last Admin: 03/22/17 08:29 Dose: 81 mg Cholecalciferol (Vitamin D3) 1,000 units PO DAILY [facility] Last Admin: 03/22/17 08:33 Dose: 1,000 units Dextrose/Water (Dextrose 50% In Water) 50 ml IVPUSH ASDIRECTED PRN PRN Reason: Hypoglycemia Dicyclomine HCl (Bentyl) 20 mg PO Q6HR [facility] Last Admin: 03/22/17 11:53 Dose: 20 mg Docusate Sodium (Colace) 200 mg PO BID [facility] Last Admin: 03/22/17 08:30 Dose: 200 mg Enoxaparin Sodium (Lovenox) 30 mg SUBCUT DAILY [facility] Last Admin: 03/22/17 08:35 Dose: 30 mg Furosemide (Lasix) 10 mg PO DAILY [facility] Last Admin: 03/21/17 08:34 Dose: 10 mg Hydralazine HCl (Apresoline) 10 mg IVPUSH Q8H PRN PRN Reason: Hypertension Last Admin: 03/21/17 20:40 Dose: 10 mg Levofloxacin/Dextrose 750 mg/ (Premix) 150 mls @ 100 mls/hr IV Q48H [facility] Last Admin: 03/22/17 06:11 Dose: 100 mls/hr Insulin Aspart (Novolog) 0 unit SUBCUT ACBED SHREYA PRN Reason: Protocol Last Admin: 03/22/17 11:57 Dose: Not Given Levothyroxine Sodium (Synthroid) 50 mcg PO ACBREAKFAST [facility] Last Admin: 03/22/17 06:07 Dose: 50 mcg Lorazepam (Ativan) 0.5 mg PO BEDTIME [facility] Last Admin: 03/21/17 20:23 Dose: 0.5 mg Losartan Potassium (Cozaar) 100 mg PO DAILY [facility] Last Admin: 03/22/17 08:30 Dose: 100 mg Losartan Potassium (Cozaar) 50 mg PO DAILY [facility] Last Admin: 03/22/17 08:31 Dose: 50 mg Metoprolol Succinate (Toprol Xl) 25 mg PO BID [facility] Last Admin: 03/22/17 08:33 Dose: 25 mg Ondansetron HCl (Zofran) 4 mg IVPUSH Q4H PRN PRN Reason: nausea Last Admin: 03/22/17 11:08 Dose: 4 mg Pantoprazole Sodium (Protonix) 40 mg PO DAILY@0700 [facility] Last Admin: 03/22/17 06:07 Dose: 40 mg Estradiol [Yuvafem] (10 Mcg) 0 each VAG MOWEFR [facility] Last Admin: 03/21/17 08:44 Dose: Not Given Phenazopyridine HCl (Urinary Pain Relief) 95 mg PO TIDPC [facility] Last Admin: 03/22/17 12:07 Dose: 95 mg Polyethylene Glycol (Miralax) 17 gm PO DAILY [facility] Last Admin: 03/22/17 08:32 Dose: 17 gm Saccharomyces Boulardii (Florastor) 250 mg PO BID [facility] Last Admin: 03/22/17 08:32 Dose: 250 mg Sertraline HCl (Zoloft) 50 mg PO DAILY [facility] Last Admin: 03/22/17 08:35 Dose: 50 mg Simvastatin (Zocor) 20 mg PO BEDTIME [facility] Last Admin: 03/21/17 20:30 Dose: 20 mg Sucralfate (Carafate) 1 gm PO QIDACANDBED [facility] Last Admin: 03/22/17 11:50 Dose: 1 gm Temazepam (Restoril) 7.5 mg PO BEDTIME PRN PRN Reason: Insomnia Last Admin: 03/21/17 20:23 Dose: 7.5 mg Tramadol HCl (Ultram) 50 mg PO Q6H PRN PRN Reason: Pain Last Admin: 03/22/17 09:11 Dose: 50 mg Discontinued Medications Hydromorphone HCl (Dilaudid) 0.5 mg IVPUSH Q6H PRN PRN Reason: Pain Last Admin: 03/21/17 22:27 Dose: 0.5 mg Sodium Chloride (Normal Saline) 500 mls @ 999 mls/hr IV .BOLUS ONE Stop: 03/19/17 20:47 Last Admin: 03/19/17 20:42 Dose: 999 mls/hr Magnesium Sulfate 2 gm/ Premix 50 mls @ 50 mls/hr IV ONETIME ONE Stop: 03/19/17 23:11 Last Admin: 03/19/17 22:53 Dose: 50 mls/hr Sodium Chloride (Normal Saline) 1,000 mls @ 150 mls/hr IV ASDIRECTED [facility] Potassium Chloride/Dextrose/Sod Cl (D5 Ns With 20 Meq Kcl) 1,000 mls @ 100 mls/ hr IV ASDIRECTED [facility] Stop: 03/20/17 07:00 Last Admin: 03/20/17 01:02 Dose: 100 mls/hr Magnesium Sulfate 2 gm/ Premix 50 mls @ 25 mls/hr IV ONETIME ONE Stop: 03/20/17 02:14 Last Admin: 03/20/17 02:55 Dose: 25 mls/hr Metronidazole 500 mg/ Premix 100 mls @ 100 mls/hr IV Q8H [facility] Last Admin: 03/21/17 15:37 Dose: 100 mls/hr Levofloxacin/Dextrose 750 mg/ (Premix) 150 mls @ 100 mls/hr IV ONETIME ONE Stop: 03/20/17 02:08 Last Admin: 03/20/17 04:53 Dose: 100 mls/hr Levofloxacin/Dextrose 750 mg/ (Premix) 150 mls @ 100 mls/hr IV Q24H [facility] Last Admin: 03/20/17 06:53 Dose: Not Given Sodium Chloride (Normal Saline) 1,000 mls @ 100 mls/hr IV ASDIRECTED [facility] Last Admin: 03/21/17 15:37 Dose: 100 mls/hr Magnesium Sulfate 2 gm/ Premix 50 mls @ 25 mls/hr IV ONETIME ONE Stop: 03/21/17 12:14 Last Admin: 03/21/17 11:07 Dose: 25 mls/hr Dextrose/Sodium Chloride (Dextrose 5%-1/2 Ns) 1,000 mls @ 75 mls/hr IV ASDIRECTED [facility] Last Admin: 03/21/17 20:22 Dose: 75 mls/hr Magnesium Sulfate 2 gm/ Premix 50 mls @ 25 mls/hr IV ONETIME ONE Stop: 03/22/17 13:44 Last Admin: 03/22/17 12:07 Dose: 25 mls/hr Insulin Aspart (Novolog) 0 unit SUBCUT Q6H [facility] PRN Reason: Protocol Last Admin: 03/21/17 20:22 Dose: Not Given Morphine Sulfate (Morphine) 1 mg IVPUSH Q4H PRN PRN Reason: Pain Last Admin: 03/21/17 08:56 Dose: 1 mg Ondansetron HCl (Zofran) 4 mg IVPUSH ONETIME ONE Stop: 03/19/17 20:18 Last Admin: 03/19/17 20:43 Dose: 4 mg Potassium Chloride (Potassium Chloride Solution) 60 meq PO ONETIME ONE Stop: 03/20/17 00:17 Last Admin: 03/20/17 01:30 Dose: 60 meq Potassium Chloride (Potassium Chloride) 60 meq PO ONETIME ONE Stop: 03/21/17 12:01 Last Admin: 03/21/17 11:13 Dose: 60 meq - My Orders Last 24 Hours: My Active Orders 03/21/17 19:39 Blood Glucose Check, Bedside [RC] QIDACANDBED Dextrose 50% in Water 50 ml IVPUSH ASDIRECTED PRN 03/21/17 22:00 Insulin Aspart [NovoLOG] 0 unit SUBCUT ACBED 03/22/17 10:41 Bedrest Bedside Commode [RC] ASDIRECTED Acetaminophen/HYDROcodone [[place] 325-10 MG] 1 tab PO Q6H PRN 03/22/17 13:00 Phenazopyridine [Urinary Pain Relief] 95 mg PO TIDPC 03/22/17 Lunch Full Liquid Diet [DIET] - Plan Plan:: Agree with current treatment empirically for UTI. DC flagyl, continue Levoquin. Appears to seek narcotics, complaint is out of portion to clinical setting. Pain meds will be changed to po.
[2017-03-21] MEDS ORDERED: 50% Dextrose in Water 50 ML Syringe IVPUSH PRN (19:39)
[2017-03-21] MEDS ORDERED: Insulin Aspart 100 Units/ML 3 ML Pen SUBCUT SCH (19:45)
[2017-03-21] MEDS ORDERED: Dextrose 5%-0.45% NaCl 1,000 ML IV SCH (19:45)
[2017-03-21] MEDS: Temazepam 7.5 MG Cap PO PRN (20:23)
[2017-03-21] MEDS: LORazepam 0.5 MG Tab PO SCH (20:23)
[2017-03-21] MEDS: traMADol 50 MG Tab PO PRN (20:24)
[2017-03-21] MEDS: Simvastatin 20 MG Tab PO SCH (20:30)
[2017-03-21] MEDS: hydrALAZINE 20 MG/ML SDV IVPUSH PRN (20:40)
[2017-03-21] MEDS: Insulin Aspart 100 Units/ML 3 ML Pen SUBCUT SCH (21:30)
[2017-03-22] MEDS: Albuterol/Ipratropium 3.0-0.5 MG/3 ML Neb Soln NEB SCH ×4 (05:57→20:32)
[2017-03-22] MEDS: Dicyclomine 10 MG Cap PO SCH ×3 (06:07→18:12)
[2017-03-22] MEDS: Levothyroxine 50 MCG Tab PO SCH (06:07)
[2017-03-22] MEDS: Pantoprazole 40 MG Tab.CR PO SCH (06:07)
[2017-03-22] MEDS: Sucralfate Suspension 1 GM/10 ML Cup PO SCH ×4 (06:07→21:57)
[2017-03-22] MEDS: Levofloxacin/Dextrose 5%-Water 750 MG in Premix Bag 1 BAG IV SCH (06:11)
[2017-03-22] MEDS: Insulin Aspart 100 Units/ML 3 ML Pen SUBCUT SCH ×4 (06:18→21:57)
[2017-03-22] MEDS: Aspirin 81 MG Tab.Chew PO SCH (08:29)
[2017-03-22] MEDS: Docusate Sodium 100 MG Cap PO SCH ×3 (08:30→21:56)
[2017-03-22] MEDS: Losartan 100 MG Tab PO SCH (08:30)
[2017-03-22] MEDS: Losartan 25 MG Tab PO SCH (08:31)
[2017-03-22] MEDS: Saccharomyces Boulardii (Probiotic) 250 MG Cap PO SCH ×3 (08:32→21:56)
[2017-03-22] MEDS: amLODIPine 5 MG Tab PO SCH (08:32)
[2017-03-22] MEDS: Polyethylene Glycol 3350 Powder 17 GM Packet PO SCH (08:32)
[2017-03-22] MEDS: Metoprolol Succinate 25 MG Tab.ER PO SCH ×2 (08:33→21:56)
[2017-03-22] MEDS: Cholecalciferol (Vitamin D3) 1,000 Unit Tab PO SCH (08:33)
[2017-03-22] MEDS: Enoxaparin 30 MG/0.3 ML Syringe SUBCUT SCH (08:35)
[2017-03-22] MEDS: Sertraline 50 MG Tab PO SCH (08:35)
[2017-03-22] MEDS: traMADol 50 MG Tab PO PRN ×2 (09:11→21:12)
[2017-03-22] MEDS: Acetaminophen/HYDROcodone 325-10 MG Tab PO PRN ×2 (10:51→19:52)
[2017-03-22] MEDS ORDERED: Magnesium Sulfate/Water 2 GM in Premix Bag 1 BAG IV ONE (11:45)
[2017-03-22] MEDS: Phenazopyridine 95 MG Tab PO SCH ×2 (12:07→18:12)
--- NOTE | 2017-03-22 14:39 | PCM.PN ---
- General Info Date of Service: 03/22/17 Functional Status: Reports: Tolerating Diet (clear liquids) - Review of Systems General: Reports: Weakness, Malaise HEENT: Reports: Headaches Pulmonary: Reports: No Symptoms Cardiovascular: Reports: No Symptoms Gastrointestinal: Reports: Abdominal Pain Genitourinary: Reports: No Symptoms Musculoskeletal: Reports: No Symptoms Skin: Reports: No Symptoms Neurological: Reports: No Symptoms Psychiatric: Reports: Other (tearful, anxious; seeking pain meds?) - Patient Data Vitals - Most Recent: Last Vital Signs Temp 36.8 C 03/22/17 08:23 Pulse 70 03/22/17 08:33 Resp 18 03/22/17 08:23 BP 135/78 03/22/17 08:33 Pulse Ox 99 03/22/17 09:19 Weight - Most Recent: 89.857 kg I&O - Last 24 Hours: Intake & Output 03/21/17 03/22/17 03/22/17 22:59 06:59 14:59 Intake Total 440 1224 Output Total 750 1100 Balance -310 124 Lab Results Last 24 Hours: Laboratory Results - last 24 hr 03/21/17 03/21/17 03/22/17 Range/Units 15:11 20:46 05:55 WBC (3.98-10.04) K/mm3 RBC (3.98-5.22) M/mm3 Hgb (11.2-15.7) gm/L Hct (34.1-44.9) % MCV (79.4-94.8) fl MCH (25.6-32.2) pg MCHC (32.2-35.5) g/dl RDW Std Deviation (36.4-46.3) fL Plt Count (182-369) K/mm3 MPV (9.4-12.3) fl Neut % (Auto) (34.0-71.1) % Lymph % (Auto) (19.3-51.7) % [place] % (Auto) (4.7-12.5) % Eos % (Auto) (0.7-5.8) Baso % (Auto) (0.1-1.2) % Neut # (Auto) (1.56-6.13) K/mm3 Lymph # (Auto) (1.18-3.74) K/mm3 [place] # (Auto) (0.24-0.36) K/mm3 Eos # (Auto) (0.04-0.36) K/mm3 Baso # (Auto) (0.01-0.08) K/mm3 Sodium 140 (136-145) mEq/L Potassium 3.5 (3.5-5.1) mEq/L Chloride 104 (98-107) mEq/L Carbon Dioxide 28 (21-32) mEq/L Anion Gap 11.5 (5-15) BUN 9 (7-18) mg/dL Creatinine 0.8 (0.55-1.02) mg/dL Est Cr Clr Drug Dosing 37.60 mL/min Estimated GFR (MDRD) > 60 (>60) mL/min BUN/Creatinine Ratio 11.3 L (14-18) Glucose 130 H (83-115) mg/dL POC Glucose 120 H 122 H (83-110) mg/dL Calcium 7.8 L (8.5-10.1) mg/dL Magnesium 1.6 L (1.8-2.4) mg/dl 03/22/17 03/22/17 03/22/17 Range/Units 05:55 06:04 11:56 WBC 5.67 (3.98-10.04) K/mm3 RBC 3.66 L (3.98-5.22) M/mm3 Hgb 10.1 L (11.2-15.7) gm/L Hct 33.0 L (34.1-44.9) % MCV 90.2 (79.4-94.8) fl MCH 27.6 (25.6-32.2) pg MCHC 30.6 L (32.2-35.5) g/dl RDW Std Deviation 50.1 H (36.4-46.3) fL Plt Count 247 (182-369) K/mm3 MPV 11.2 (9.4-12.3) fl Neut % (Auto) 68.3 (34.0-71.1) % Lymph % (Auto) 16.6 L (19.3-51.7) % [place] % (Auto) 12.2 (4.7-12.5) % Eos % (Auto) 2.5 (0.7-5.8) Baso % (Auto) 0.2 (0.1-1.2) % Neut # (Auto) 3.88 (1.56-6.13) K/mm3 Lymph # (Auto) 0.94 L (1.18-3.74) K/mm3 [place] # (Auto) 0.69 H (0.24-0.36) K/mm3 Eos # (Auto) 0.14 (0.04-0.36) K/mm3 Baso # (Auto) 0.01 (0.01-0.08) K/mm3 Sodium (136-145) mEq/L Potassium (3.5-5.1) mEq/L Chloride (98-107) mEq/L Carbon Dioxide (21-32) mEq/L Anion Gap (5-15) BUN (7-18) mg/dL Creatinine (0.55-1.02) mg/dL Est Cr Clr Drug Dosing mL/min Estimated GFR (MDRD) (>60) mL/min BUN/Creatinine Ratio (14-18) Glucose (83-115) mg/dL POC Glucose 118 H 121 H (83-110) mg/dL Calcium (8.5-10.1) mg/dL Magnesium (1.8-2.4) mg/dl [place] Results Last 24 Hours: Microbiology 03/20/17 00:58 Aerobic Blood Culture - Preliminary Blood - Venous - Lab Draw NO GROWTH AFTER 2 DAYS Anaerobic Blood Culture - Preliminary NO GROWTH AFTER 2 DAYS 03/20/17 00:40 Aerobic Blood Culture - Preliminary Blood - Venous NO GROWTH AFTER 2 DAYS Anaerobic Blood Culture - Preliminary NO GROWTH AFTER 2 DAYS 03/21/17 20:25 Stool for WBCs - Final Stool / Feces NO WBC SEEN Med Orders - Current: Current Medications Hydrocodone Bitart/Acetaminophen ([place] 325-10 Mg) 1 tab PO Q6H PRN PRN Reason: Pain (moderate 4-6) Last Admin: 03/22/17 10:51 Dose: 1 tab Al Hydroxide/Mg Hydroxide (Mag-Al Plus) 30 ml PO ASDIRECTED PRN PRN Reason: Heartburn Albuterol/Ipratropium (Duoneb 3.0-0.5 Mg/3 Ml) 3 ml NEB QIDRT [facility] Last Admin: 03/22/17 09:18 Dose: 3 ml Amlodipine Besylate (Norvasc) 5 mg PO DAILY [facility] Last Admin: 03/22/17 08:32 Dose: 5 mg Aspirin (Aspirin) 81 mg PO DAILY [facility] Last Admin: 03/22/17 08:29 Dose: 81 mg Cholecalciferol (Vitamin D3) 1,000 units PO DAILY [facility] Last Admin: 03/22/17 08:33 Dose: 1,000 units Dextrose/Water (Dextrose 50% In Water) 50 ml IVPUSH ASDIRECTED PRN PRN Reason: Hypoglycemia Dicyclomine HCl (Bentyl) 20 mg PO Q6HR [facility] Last Admin: 03/22/17 11:53 Dose: 20 mg Docusate Sodium (Colace) 200 mg PO BID [facility] Last Admin: 03/22/17 08:30 Dose: 200 mg Enoxaparin Sodium (Lovenox) 30 mg SUBCUT DAILY [facility] Last Admin: 03/22/17 08:35 Dose: 30 mg Furosemide (Lasix) 10 mg PO DAILY [facility] Last Admin: 03/21/17 08:34 Dose: 10 mg Hydralazine HCl (Apresoline) 10 mg IVPUSH Q8H PRN PRN Reason: Hypertension Last Admin: 03/21/17 20:40 Dose: 10 mg Levofloxacin/Dextrose 750 mg/ (Premix) 150 mls @ 100 mls/hr IV Q48H [facility] Last Admin: 03/22/17 06:11 Dose: 100 mls/hr Insulin Aspart (Novolog) 0 unit SUBCUT ACBED [facility] PRN Reason: Protocol Last Admin: 03/22/17 11:57 Dose: Not Given Levothyroxine Sodium (Synthroid) 50 mcg PO ACBREAKFAST [facility] Last Admin: 03/22/17 06:07 Dose: 50 mcg Lorazepam (Ativan) 0.5 mg PO BEDTIME [facility] Last Admin: 03/21/17 20:23 Dose: 0.5 mg Losartan Potassium (Cozaar) 100 mg PO DAILY [facility] Last Admin: 03/22/17 08:30 Dose: 100 mg Losartan Potassium (Cozaar) 50 mg PO DAILY [facility] Last Admin: 03/22/17 08:31 Dose: 50 mg Metoprolol Succinate (Toprol Xl) 25 mg PO BID [facility] Last Admin: 03/22/17 08:33 Dose: 25 mg Ondansetron HCl (Zofran) 4 mg IVPUSH Q4H PRN PRN Reason: nausea Last Admin: 03/22/17 11:08 Dose: 4 mg Pantoprazole Sodium (Protonix) 40 mg PO DAILY@0700 [facility] Last Admin: 03/22/17 06:07 Dose: 40 mg Estradiol [Yuvafem] (10 Mcg) 0 each VAG MOWEFR [facility] Last Admin: 03/21/17 08:44 Dose: Not Given Phenazopyridine HCl (Urinary Pain Relief) 95 mg PO TIDPC [facility] Last Admin: 03/22/17 12:07 Dose: 95 mg Polyethylene Glycol (Miralax) 17 gm PO DAILY [facility] Last Admin: 03/22/17 08:32 Dose: 17 gm Saccharomyces Boulardii (Florastor) 250 mg PO BID [facility] Last Admin: 03/22/17 08:32 Dose: 250 mg Sertraline HCl (Zoloft) 50 mg PO DAILY [facility] Last Admin: 03/22/17 08:35 Dose: 50 mg Simvastatin (Zocor) 20 mg PO BEDTIME [facility] Last Admin: 03/21/17 20:30 Dose: 20 mg Sucralfate (Carafate) 1 gm PO QIDACANDBED [facility] Last Admin: 03/22/17 11:50 Dose: 1 gm Temazepam (Restoril) 7.5 mg PO BEDTIME PRN PRN Reason: Insomnia Last Admin: 03/21/17 20:23 Dose: 7.5 mg Tramadol HCl (Ultram) 50 mg PO Q6H PRN PRN Reason: Pain Last Admin: 03/22/17 09:11 Dose: 50 mg Discontinued Medications Hydromorphone HCl (Dilaudid) 0.5 mg IVPUSH Q6H PRN PRN Reason: Pain Last Admin: 03/21/17 22:27 Dose: 0.5 mg Sodium Chloride (Normal Saline) 500 mls @ 999 mls/hr IV .BOLUS ONE Stop: 03/19/17 20:47 Last Admin: 03/19/17 20:42 Dose: 999 mls/hr Magnesium Sulfate 2 gm/ Premix 50 mls @ 50 mls/hr IV ONETIME ONE Stop: 03/19/17 23:11 Last Admin: 03/19/17 22:53 Dose: 50 mls/hr Sodium Chloride (Normal Saline) 1,000 mls @ 150 mls/hr IV ASDIRECTED [facility] Potassium Chloride/Dextrose/Sod Cl (D5 Ns With 20 Meq Kcl) 1,000 mls @ 100 mls/ hr IV ASDIRECTED [facility] Stop: 03/20/17 07:00 Last Admin: 03/20/17 01:02 Dose: 100 mls/hr Magnesium Sulfate 2 gm/ Premix 50 mls @ 25 mls/hr IV ONETIME ONE Stop: 03/20/17 02:14 Last Admin: 03/20/17 02:55 Dose: 25 mls/hr Metronidazole 500 mg/ Premix 100 mls @ 100 mls/hr IV Q8H [facility] Last Admin: 03/21/17 15:37 Dose: 100 mls/hr Levofloxacin/Dextrose 750 mg/ (Premix) 150 mls @ 100 mls/hr IV ONETIME ONE Stop: 03/20/17 02:08 Last Admin: 03/20/17 04:53 Dose: 100 mls/hr Levofloxacin/Dextrose 750 mg/ (Premix) 150 mls @ 100 mls/hr IV Q24H [facility] Last Admin: 03/20/17 06:53 Dose: Not Given Sodium Chloride (Normal Saline) 1,000 mls @ 100 mls/hr IV ASDIRECTED [facility] Last Admin: 03/21/17 15:37 Dose: 100 mls/hr Magnesium Sulfate 2 gm/ Premix 50 mls @ 25 mls/hr IV ONETIME ONE Stop: 03/21/17 12:14 Last Admin: 03/21/17 11:07 Dose: 25 mls/hr Dextrose/Sodium Chloride (Dextrose 5%-1/2 Ns) 1,000 mls @ [facility] Last Admin: 03/21/17 20:22 Dose: 75 mls/hr Magnesium Sulfate 2 gm/ Premix 50 mls @ 25 mls/hr IV ONETIME ONE Stop: 03/22/17 13:44 Last Admin: 03/22/17 12:07 Dose: 25 mls/hr Insulin Aspart (Novolog) 0 unit SUBCUT Q6H [facility] PRN Reason: Protocol Last Admin: 03/21/17 20:22 Dose: Not Given Morphine Sulfate (Morphine) 1 mg IVPUSH Q4H PRN PRN Reason: Pain Last Admin: 03/21/17 08:56 Dose: 1 mg Ondansetron HCl (Zofran) 4 mg IVPUSH ONETIME ONE Stop: 03/19/17 20:18 Last Admin: 03/19/17 20:43 Dose: 4 mg Potassium Chloride (Potassium Chloride Solution) 60 meq PO ONETIME ONE Stop: 03/20/17 00:17 Last Admin: 03/20/17 01:30 Dose: 60 meq Potassium Chloride (Potassium Chloride) 60 meq PO ONETIME ONE Stop: 03/21/17 12:01 Last Admin: 03/21/17 11:13 Dose: 60 meq - Exam Quality Assessment: DVT Prophylaxis General: Alert, Oriented, Mild Distress HEENT: Pupils Equal, Pupils Reactive, EOMI Neck: Supple, Trachea Midline Lungs: Normal Respiratory Effort Cardiovascular: Regular Rate, Regular Rhythm GI/Abdominal Exam: Normal Bowel Sounds, Soft, Non-Tender, No Distention (Female) Exam: Deferred Back Exam: Normal Inspection Extremities: Normal Inspection Skin: Warm, Dry Neurological: No New Focal Deficit Psy/Mental Status: Alert, Other (tearful) - Problem List Review Problem List Initiated/Reviewed/Updated: Yes - My Orders Last 24 Hours: My Active Orders 03/21/17 19:39 Blood Glucose Check, Bedside [RC] QIDACANDBED Dextrose 50% in Water 50 ml IVPUSH ASDIRECTED PRN 03/21/17 22:00 Insulin Aspart [NovoLOG] 0 unit SUBCUT ACBED 03/22/17 10:41 Bedrest Bedside Commode [RC] ASDIRECTED Acetaminophen/HYDROcodone [Joseph 325-10 MG] 1 tab PO Q6H PRN 03/22/17 13:00 Phenazopyridine [Urinary Pain Relief] 95 mg PO TIDPC 03/22/17 Lunch Full Liquid Diet [DIET] - Plan Plan:: Impression/Plan: Abdominal pain but tolerating diet Stopped ATB UTI empiric Rx; urgency with frequency-->resumed Pyridium Continue Levoquin DM on clear liquids, tolerated--advance to full liquids Frequent request for Narcotics-->have stopped all IV pain meds Displays addictive behavior; consider psych consult LOS>96 hours, slow response to therapy
[2017-03-22] MEDS: Simvastatin 20 MG Tab PO SCH ×2 (19:52→21:56)
[2017-03-22] MEDS: LORazepam 0.5 MG Tab PO SCH ×2 (19:53→21:55)
[2017-03-22] MEDS: Temazepam 7.5 MG Cap PO PRN (19:57)
[2017-03-22] MEDS: hydrALAZINE 20 MG/ML SDV IVPUSH PRN (20:05)
[2017-03-23] MEDS: Acetaminophen/HYDROcodone 325-10 MG Tab PO PRN ×3 (02:03→21:39)
[2017-03-23] MEDS: Dicyclomine 10 MG Cap PO SCH ×5 (02:04→23:49)
[2017-03-23] MEDS: Sucralfate Suspension 1 GM/10 ML Cup PO SCH ×4 (06:02→21:39)
[2017-03-23] MEDS: Levothyroxine 50 MCG Tab PO SCH (06:02)
[2017-03-23] MEDS: Pantoprazole 40 MG Tab.CR PO SCH (06:02)
[2017-03-23] MEDS: Albuterol/Ipratropium 3.0-0.5 MG/3 ML Neb Soln NEB SCH ×4 (06:07→20:28)
[2017-03-23] MEDS: Insulin Aspart 100 Units/ML 3 ML Pen SUBCUT SCH ×4 (08:54→21:41)
[2017-03-23] MEDS: Polyethylene Glycol 3350 Powder 17 GM Packet PO SCH (11:00)
[2017-03-23] MEDS: Docusate Sodium 100 MG Cap PO SCH ×2 (11:03→20:47)
[2017-03-23] MEDS: Aspirin 81 MG Tab.Chew PO SCH (11:03)
[2017-03-23] MEDS: Cholecalciferol (Vitamin D3) 1,000 Unit Tab PO SCH (11:04)
[2017-03-23] MEDS: Saccharomyces Boulardii (Probiotic) 250 MG Cap PO SCH ×2 (11:04→20:47)
[2017-03-23] MEDS: Sertraline 50 MG Tab PO SCH (11:05)
[2017-03-23] MEDS: Losartan 100 MG Tab PO SCH (11:07)
[2017-03-23] MEDS: Losartan 25 MG Tab PO SCH (11:08)
[2017-03-23] MEDS: Phenazopyridine 95 MG Tab PO SCH ×3 (11:09→18:14)
[2017-03-23] MEDS: amLODIPine 5 MG Tab PO SCH (11:09)
[2017-03-23] MEDS: Metoprolol Succinate 25 MG Tab.ER PO SCH ×2 (11:11→20:48)
[2017-03-23] MEDS: Enoxaparin 30 MG/0.3 ML Syringe SUBCUT SCH (11:15)
[2017-03-23] MEDS ORDERED: Magnesium Sulfate/Water 2 GM in Premix Bag 1 BAG IV ONE (14:36)
--- NOTE | 2017-03-23 14:40 | PCM.PN ---
- General Info Date of Service: 03/23/17 Functional Status: Reports: Tolerating Diet, Ambulating - Review of Systems General: Reports: Weakness, Fatigue HEENT: Reports: No Symptoms Pulmonary: Reports: No Symptoms Cardiovascular: Reports: No Symptoms Gastrointestinal: Reports: No Symptoms Genitourinary: Reports: No Symptoms Musculoskeletal: Reports: No Symptoms Skin: Reports: No Symptoms Neurological: Reports: No Symptoms Psychiatric: Reports: No Symptoms - Patient Data Vitals - Most Recent: Last Vital Signs Temp 36.6 C 03/23/17 10:25 Pulse 67 03/23/17 11:11 Resp 16 03/23/17 10:25 BP 156/50 H 03/23/17 13:11 Pulse Ox 98 03/23/17 11:07 Weight - Most Recent: 91.354 kg I&O - Last 24 Hours: Intake & Output 03/22/17 03/23/17 03/23/17 22:59 06:59 14:59 Intake Total 1770 400 Output Total 1150 1475 Balance 620 -1075 Lab Results Last 24 Hours: Laboratory Results - last 24 hr 03/22/17 03/22/17 03/23/17 Range/Units 17:31 20:06 05:53 WBC (3.98-10.04) K/mm3 RBC (3.98-5.22) M/mm3 Hgb (11.2-15.7) gm/L Hct (34.1-44.9) % MCV (79.4-94.8) fl MCH (25.6-32.2) pg MCHC (32.2-35.5) g/dl RDW Std Deviation (36.4-46.3) fL Plt Count (182-369) K/mm3 MPV (9.4-12.3) fl Neut % (Auto) (34.0-71.1) % Lymph % (Auto) (19.3-51.7) % [place] % (Auto) (4.7-12.5) % Eos % (Auto) (0.7-5.8) Baso % (Auto) (0.1-1.2) % Neut # (Auto) (1.56-6.13) K/mm3 Lymph # (Auto) (1.18-3.74) K/mm3 [place] # (Auto) (0.24-0.36) K/mm3 Eos # (Auto) (0.04-0.36) K/mm3 Baso # (Auto) (0.01-0.08) K/mm3 Sodium (136-145) mEq/L Potassium (3.5-5.1) mEq/L Chloride (98-107) mEq/L Carbon Dioxide (21-32) mEq/L Anion Gap (5-15) BUN (7-18) mg/dL Creatinine (0.55-1.02) mg/dL Est Cr Clr Drug Dosing mL/min Estimated GFR (MDRD) (>60) mL/min BUN/Creatinine Ratio (14-18) Glucose (83-115) mg/dL POC Glucose 140 H 140 H 114 H (83-110) mg/dL Calcium (8.5-10.1) mg/dL Magnesium (1.8-2.4) mg/dl 03/23/17 03/23/17 03/23/17 Range/Units 06:29 06:29 12:18 WBC 5.05 (3.98-10.04) K/mm3 RBC 3.70 L (3.98-5.22) M/mm3 Hgb 10.3 L (11.2-15.7) gm/L Hct 33.3 L (34.1-44.9) % MCV 90.0 (79.4-94.8) fl MCH 27.8 (25.6-32.2) pg MCHC 30.9 L (32.2-35.5) g/dl RDW Std Deviation 49.5 H (36.4-46.3) fL Plt Count 231 (182-369) K/mm3 MPV 10.5 (9.4-12.3) fl Neut % (Auto) 62.5 (34.0-71.1) % Lymph % (Auto) 24.2 (19.3-51.7) % [place] % (Auto) 9.9 (4.7-12.5) % Eos % (Auto) 3.0 (0.7-5.8) Baso % (Auto) 0.2 (0.1-1.2) % Neut # (Auto) 3.16 (1.56-6.13) K/mm3 Lymph # (Auto) 1.22 (1.18-3.74) K/mm3 [place] # (Auto) 0.50 H (0.24-0.36) K/mm3 Eos # (Auto) 0.15 (0.04-0.36) K/mm3 Baso # (Auto) 0.01 (0.01-0.08) K/mm3 Sodium 144 (136-145) mEq/L Potassium 3.4 L (3.5-5.1) mEq/L Chloride 108 H (98-107) mEq/L Carbon Dioxide 29 (21-32) mEq/L Anion Gap 10.4 (5-15) BUN 6 L (7-18) mg/dL Creatinine 0.8 (0.55-1.02) mg/dL Est Cr Clr Drug Dosing 37.60 mL/min Estimated GFR (MDRD) > 60 (>60) mL/min BUN/Creatinine Ratio 7.5 L (14-18) Glucose 114 (83-115) mg/dL POC Glucose 161 H (83-110) mg/dL Calcium 8.3 L (8.5-10.1) mg/dL Magnesium 1.8 (1.8-2.4) mg/dl [place] Results Last 24 Hours: Microbiology 03/21/17 20:25 Stool Culture - Preliminary Stool / Feces - Final - Final 03/20/17 00:58 Aerobic Blood Culture - Preliminary Blood - Venous - Lab Draw NO GROWTH AFTER 3 DAYS Anaerobic Blood Culture - Preliminary NO GROWTH AFTER 3 DAYS 03/20/17 00:40 Aerobic Blood Culture - Preliminary Blood - Venous NO GROWTH AFTER 3 DAYS Anaerobic Blood Culture - Preliminary NO GROWTH AFTER 3 DAYS Med Orders - Current: Current Medications Hydrocodone Bitart/Acetaminophen ([place] 325-10 Mg) 1 tab PO Q6H PRN PRN Reason: Pain (moderate 4-6) Last Admin: 03/23/17 02:03 Dose: 1 tab Al Hydroxide/Mg Hydroxide (Mag-Al Plus) 30 ml PO ASDIRECTED PRN PRN Reason: Heartburn Albuterol/Ipratropium (Duoneb 3.0-0.5 Mg/3 Ml) 3 ml NEB QIDRT [facility] Last Admin: 03/23/17 09:02 Dose: 3 ml Amlodipine Besylate (Norvasc) 5 mg PO DAILY [facility] Last Admin: 03/23/17 11:09 Dose: 5 mg Aspirin (Aspirin) 81 mg PO DAILY [facility] Last Admin: 03/23/17 11:03 Dose: 81 mg Cholecalciferol (Vitamin D3) 1,000 units PO DAILY [facility] Last Admin: 03/23/17 11:04 Dose: 1,000 units Dextrose/Water (Dextrose 50% In Water) 50 ml IVPUSH ASDIRECTED PRN PRN Reason: Hypoglycemia Dicyclomine HCl (Bentyl) 20 mg PO Q6HR [facility] Last Admin: 03/23/17 12:30 Dose: 20 mg Docusate Sodium (Colace) 200 mg PO BID [facility] Last Admin: 03/23/17 11:03 Dose: 200 mg Enoxaparin Sodium (Lovenox) 30 mg SUBCUT DAILY [facility] Last Admin: 03/23/17 11:15 Dose: 30 mg Furosemide (Lasix) 10 mg PO DAILY [facility] Last Admin: 03/21/17 08:34 Dose: 10 mg Hydralazine HCl (Apresoline) 10 mg IVPUSH Q8H PRN PRN Reason: Hypertension Last Admin: 03/22/17 20:05 Dose: 10 mg Levofloxacin/Dextrose 750 mg/ (Premix) 150 mls @ 100 mls/hr IV Q48H [facility] Last Admin: 03/22/17 06:11 Dose: 100 mls/hr Insulin Aspart (Novolog) 0 unit SUBCUT ACBED [facility] PRN Reason: Protocol Last Admin: 03/23/17 12:27 Dose: 1 unit Levothyroxine Sodium (Synthroid) 50 mcg PO ACBREAKFAST [facility] Last Admin: 03/23/17 06:02 Dose: 50 mcg Lorazepam (Ativan) 0.5 mg PO BEDTIME [facility] Last Admin: 03/22/17 21:55 Dose: Not Given Losartan Potassium (Cozaar) 100 mg PO DAILY [facility] Last Admin: 03/23/17 11:07 Dose: 100 mg Losartan Potassium (Cozaar) 50 mg PO DAILY [facility] Last Admin: 03/23/17 11:08 Dose: 50 mg Metoprolol Succinate (Toprol Xl) 25 mg PO BID [facility] Last Admin: 03/23/17 11:11 Dose: 25 mg Ondansetron HCl (Zofran) 4 mg IVPUSH Q4H PRN PRN Reason: nausea Last Admin: 03/22/17 11:08 Dose: 4 mg Pantoprazole Sodium (Protonix) 40 mg PO DAILY@0700 [facility] Last Admin: 03/23/17 06:02 Dose: 40 mg Estradiol [Yuvafem] (10 Mcg) 0 each VAG MOWEFR [facility] Last Admin: 03/21/17 08:44 Dose: Not Given Phenazopyridine HCl (Urinary Pain Relief) 95 mg PO TIDPC [facility] Last Admin: 03/23/17 13:44 Dose: 95 mg Polyethylene Glycol (Miralax) 17 gm PO DAILY [facility] Last Admin: 03/23/17 11:00 Dose: 17 gm Saccharomyces Boulardii (Florastor) 250 mg PO BID [facility] Last Admin: 03/23/17 11:04 Dose: 250 mg Sertraline HCl (Zoloft) 50 mg PO DAILY [facility] Last Admin: 03/23/17 11:05 Dose: 50 mg Simvastatin (Zocor) 20 mg PO BEDTIME [facility] Last Admin: 03/22/17 21:56 Dose: Not Given Sucralfate (Carafate) 1 gm PO QIDACANDBED [facility] Last Admin: 03/23/17 11:11 Dose: 1 gm Temazepam (Restoril) 7.5 mg PO BEDTIME PRN PRN Reason: Insomnia Last Admin: 03/22/17 19:57 Dose: 7.5 mg Tramadol HCl (Ultram) 50 mg PO Q6H PRN PRN Reason: Pain Last Admin: 03/22/17 21:12 Dose: 50 mg Discontinued Medications Hydromorphone HCl (Dilaudid) 0.5 mg IVPUSH Q6H PRN PRN Reason: Pain Last Admin: 03/21/17 22:27 Dose: 0.5 mg Sodium Chloride (Normal Saline) 500 mls @ 999 mls/hr IV .BOLUS ONE Stop: 03/19/17 20:47 Last Admin: 03/19/17 20:42 Dose: 999 mls/hr Magnesium Sulfate 2 gm/ Premix 50 mls @ 50 mls/hr IV ONETIME ONE Stop: 03/19/17 23:11 Last Admin: 03/19/17 22:53 Dose: 50 mls/hr Sodium Chloride (Normal Saline) 1,000 mls @ 150 mls/hr IV ASDIRECTED [facility] Potassium Chloride/Dextrose/Sod Cl (D5 Ns With 20 Meq Kcl) 1,000 mls @ 100 mls/ hr IV ASDIRECTED [facility] Stop: 03/20/17 07:00 Last Admin: 03/20/17 01:02 Dose: 100 mls/hr Magnesium Sulfate 2 gm/ Premix 50 mls @ 25 mls/hr IV ONETIME ONE Stop: 03/20/17 02:14 Last Admin: 03/20/17 02:55 Dose: 25 mls/hr Metronidazole 500 mg/ Premix 100 mls @ 100 mls/hr IV Q8H [facility] Last Admin: 03/21/17 15:37 Dose: 100 mls/hr Levofloxacin/Dextrose 750 mg/ (Premix) 150 mls @ 100 mls/hr IV ONETIME ONE Stop: 03/20/17 02:08 Last Admin: 03/20/17 04:53 Dose: 100 mls/hr Levofloxacin/Dextrose 750 mg/ (Premix) 150 mls @ 100 mls/hr IV Q24H [facility] Last Admin: 03/20/17 06:53 Dose: Not Given Sodium Chloride (Normal Saline) 1,000 mls @ 100 mls/hr IV [facility] Last Admin: 03/21/17 15:37 Dose: 100 mls/hr Magnesium Sulfate 2 gm/ Premix 50 mls @ 25 mls/hr IV ONETIME ONE Stop: 03/21/17 12:14 Last Admin: 03/21/17 11:07 Dose: 25 mls/hr Dextrose/Sodium Chloride (Dextrose 5%-1/2 Ns) 1,000 mls @ 75 mls/hr IV [facility] Last Admin: 03/21/17 20:22 Dose: 75 mls/hr Magnesium Sulfate 2 gm/ Premix 50 mls @ 25 mls/hr IV ONETIME ONE Stop: 03/22/17 13:44 Last Admin: 03/22/17 12:07 Dose: 25 mls/hr Insulin Aspart (Novolog) 0 unit SUBCUT Q6H [facility] PRN Reason: Protocol Last Admin: 03/21/17 20:22 Dose: Not Given Morphine Sulfate (Morphine) 1 mg IVPUSH Q4H PRN PRN Reason: Pain Last Admin: 03/21/17 08:56 Dose: 1 mg Ondansetron HCl (Zofran) 4 mg IVPUSH ONETIME ONE Stop: 03/19/17 20:18 Last Admin: 03/19/17 20:43 Dose: 4 mg Potassium Chloride (Potassium Chloride Solution) 60 meq PO ONETIME ONE Stop: 03/20/17 00:17 Last Admin: 03/20/17 01:30 Dose: 60 meq Potassium Chloride (Potassium Chloride) 60 meq PO ONETIME ONE Stop: 03/21/17 12:01 Last Admin: 03/21/17 11:13 Dose: 60 meq - Exam Quality Assessment: DVT Prophylaxis General: Alert, Oriented, Cooperative, No Acute Distress HEENT: Pupils Equal, Pupils Reactive, EOMI Neck: Supple, Trachea Midline, No JVD Lungs: Normal Respiratory Effort Cardiovascular: Regular Rate, Regular Rhythm GI/Abdominal Exam: Normal Bowel Sounds, No Distention (Female) Exam: Deferred Back Exam: Normal Inspection Extremities: Normal Inspection, Normal Capillary Refill Skin: Warm Neurological: No New Focal Deficit Psy/Mental Status: Alert, Depressed - Problem List Review Problem List Initiated/Reviewed/Updated: Yes - My Orders Last 24 Hours: My Active Orders 03/23/17 14:36 Magnesium Sulfate/Water [Magnesium Sulfate 2 GM in Water 50 ML] 2 gm Premix Bag 1 bag IV ONETIME 03/23/17 17:00 Potassium Chloride 40 meq PO BID - Plan Plan:: Impression/Plan: Abdominal pain but tolerating diet Stopped ATB UTI empiric Rx; urgency with frequency-->resumed Pyridium Continue Levoquin DM on clear liquids, tolerated--advance to full liquids Frequent request for Narcotics-->have stopped all IV pain meds Displays addictive behavior; consider psych consult LOS>96 hours, slow response to therapy; DC 03/24/17
[2017-03-23] MEDS: Potassium Chloride 10% 20 MEQ/15 ML Soln 30 ML UD Cup PO SCH ×2 (17:32→20:47)
[2017-03-23] MEDS: Simvastatin 20 MG Tab PO SCH (20:48)
[2017-03-23] MEDS: LORazepam 0.5 MG Tab PO SCH (20:49)
[2017-03-24] MEDS: Dicyclomine 10 MG Cap PO SCH ×2 (05:22→11:52)
[2017-03-24] MEDS: Levothyroxine 50 MCG Tab PO SCH (05:22)
[2017-03-24] MEDS ORDERED: Levofloxacin/Dextrose 5%-Water 750 MG in Premix Bag 1 BAG IV SCH (05:30)
[2017-03-24] MEDS: Levofloxacin/Dextrose 5%-Water 750 MG in Premix Bag 1 BAG IV SCH (05:34)
[2017-03-24] MEDS: Albuterol/Ipratropium 3.0-0.5 MG/3 ML Neb Soln NEB SCH ×2 (06:09→09:05)
[2017-03-24] MEDS: Sucralfate Suspension 1 GM/10 ML Cup PO SCH ×2 (06:22→11:52)
[2017-03-24] MEDS: Pantoprazole 40 MG Tab.CR PO SCH (06:22)
[2017-03-24] MEDS: Insulin Aspart 100 Units/ML 3 ML Pen SUBCUT SCH ×2 (06:48→11:52)
[2017-03-24] MEDS: Losartan 100 MG Tab PO SCH (08:34)
[2017-03-24] MEDS: Docusate Sodium 100 MG Cap PO SCH (08:34)
[2017-03-24] MEDS: Aspirin 81 MG Tab.Chew PO SCH (08:34)
[2017-03-24] MEDS: Furosemide 20 MG Tab PO SCH (08:35)
[2017-03-24] MEDS: Saccharomyces Boulardii (Probiotic) 250 MG Cap PO SCH (08:35)
[2017-03-24] MEDS: Losartan 25 MG Tab PO SCH (08:35)
[2017-03-24] MEDS: Polyethylene Glycol 3350 Powder 17 GM Packet PO SCH (08:37)
[2017-03-24] MEDS: Potassium Chloride 10% 20 MEQ/15 ML Soln 30 ML UD Cup PO SCH (08:37)
[2017-03-24] MEDS: amLODIPine 5 MG Tab PO SCH (08:37)
[2017-03-24] MEDS: Metoprolol Succinate 25 MG Tab.ER PO SCH (08:38)
[2017-03-24] MEDS: Cholecalciferol (Vitamin D3) 1,000 Unit Tab PO SCH (08:38)
[2017-03-24] MEDS: Phenazopyridine 95 MG Tab PO SCH ×2 (08:38→12:31)
[2017-03-24] MEDS: Sertraline 50 MG Tab PO SCH (08:39)
[2017-03-24] MEDS: Estradiol [Yuvafem] 10 MCG VAG SCH (08:49)
[2017-03-24] MEDS ORDERED: Enoxaparin 40 MG/0.4 ML Syringe SUBCUT SCH (09:00)
[2017-03-24] MEDS: hydrALAZINE 20 MG/ML SDV IVPUSH PRN (12:31)
[2017-03-24 13:30] VITALS: BP 127/58
--- NOTE | 2017-03-24 13:34 | PCM.DCSUM1 ---
<Reg Castillo - Last Filed: 03/24/17 13:54> Discharge Summary - Hospital Course Free Text/Narrative:: Carlota Sotelo is an 82 year old female who came to our ED with complaints of stomach and bladder pain. She was accompanied by her . She underwent B[facility] to her bladder for over[facility] bladder [facility] home with fluconazole and Pyridium 200 mg 3 times a day. Her eyes reports she had undergone Botox injections before and they had worked, however this time symptoms were not relieved. On 03/12/17 she was in [facility] for dysuria, urinary frequency, and urgency. The patient urinated in a hat and a urinalysis preformed, unfortunately we are unable see these records. She is prescribed doxycycline 100 mg by mouth twice a day and finished those yesterday. Since that time she has had no resolution of symptoms and the pain has actually gotten worse over the past 2-3 days. She reports also feeling weak and dry, nausea, but no emesis. She has had non- bloody diarrhea. She denies any recent constipation. Once in the ED, an EKG was preformed revealing a first-degree A-V block with a rate of 73 beats per minutes. She also slightly prolonged QT. This was unchanged from previous EKG performed on 01/09/17. She was hypertensive with a blood pressure 193/75. Pulse ox is also noted to be 83. Labs were obtained and revealed a normal WBC of 7.23, hemoglobin 11.7, platelets 268,000, sodium was 141, potassium was low at 2.9, creatinine was 1.0, glucose was high at 146, lactic acid was high at 2.2, magnesium was low at 0.9, troponin was negative, lipase was 85. Urinalysis was performed revealing orange colored urine, likely.due to the Pyridium. UA was positive for nitrate and leukocyte Estrace was 3+, however no bacteria or WBCs were seen on microscopic examination. A stool C. difficile PCR was also performed and was negative. A 2 g magnesium rider was started. Potassium replacement was delayed until magnesium was normalized. A CT of the abdomen and pelvis was performed notin. Mild, nonspecific left hemic colitis. 2. Hiatal hernia. 3. Colonic diverticulosis. 4. 3.4 cm right adrenal nodule is unchanged. Throughout her hospital stay her weakness decreased. She has been making frequent trips to the bathroom. It was explained to the patient that this is likely due to her lasix and overactive bladder. She continued to complain about 9/10 abdominal pain, although no etiology could be determined. She did not have an elevated WBC and her CRP remained WNL. Her urine culture did not grow out any organisms. Stool cultures were negative. Discussed with patient and her the possibility of gynecological origin of pain. She was advised to see lehr cutter and stated she would like to see one at [facility]. She will have appointment with Dr. Andrew Lua set-up by case management. She should also follow-up with her PCP, Dr. Schaeffer, for evaluation and monitoring of her potassium, as it has been low here. She was started on supplementation prior to discharge. She was also started on Cozaar, as her blood pressures have been elevated. - Discharge Data Discharge Date: 03/24/17 (Admit date: 03/19/17) Discharge Disposition: Home, Self-Care 01 Condition: Good - Discharge Diagnosis/Problem(s) (1) Colitis SNOMED Code(s): 64363841 ICD Code: K52.9 - NONINFECTIVE GASTROENTERITIS AND COLITIS, UNSPECIFIED Status: Resolved Priority: High (2) Hypokalemia SNOMED Code(s): 25933004 ICD Code: E87.6 - HYPOKALEMIA Status: Resolved Priority: High (3) Hypomagnesemia SNOMED Code(s): 454416020 ICD Code: E83.42 - HYPOMAGNESEMIA Status: Resolved Priority: High (4) Diabetes SNOMED Code(s): 50313529 ICD Code: E11.9 - TYPE 2 DIABETES MELLITUS WITHOUT COMPLICATIONS Status: Chronic Priority: Medium QualifierTitle: Diabetes mellitus type: type 2 Diabetes mellitus complication status: without complication Diabetes mellitus correction insulin use: unspecified superintendent container terminal insulin use status Qualified Code(s): E11.9 - Type 2 diabetes mellitus without complications (5) Generalized weakness SNOMED Code(s): 78013235 ICD Code: R53.1 - WEAKNESS Status: Resolved Priority: Medium (6) Congestive heart failure (CHF) SNOMED Code(s): 70002955 ICD Code: I50.9 - HEART FAILURE, UNSPECIFIED Status: Chronic Priority: Low QualifierTitle: Congestive heart failure type: unspecified congestive heart failure type Congestive heart failure chronicity: acute on chronic Qualified Code(s): I50.9 - Heart failure, unspecified - Patient Summary/Data Consults: Consultations 03/20/17 00:20 OT Evaluation and Treatment [CONS] Routine PT Evaluation and Treatment [CONS] Routine 03/20/17 00:21 Consult to Case Management [CONS] Routine - Patient Instructions Diet: Heart Healthy Diet, Diabetic Diet Activity: As Tolerated Driving: Do Not Drive Showering/Bathing: May Shower Notify Provider of: Fever, Increased Pain, Swelling and Redness, Nausea and/or Vomiting Other/Special Instructions: Follow-up with Dr. Schaeffer within one week to check potassium and progress. Consult with [facility] (appt. to be scheduled with Dr. Andrew Lua through case management.) - Discharge Plan Prescriptions/Med Rec: Losartan [Cozaar] 50 mg PO DAILY #30 tablet Phenazopyridine [Urinary Pain Relief] 95 mg PO TID #40 tablet Potassium Chloride 40 meq PO BID #30 cup Saccharomyces Boulardii [Florastor] 250 mg PO BID #60 cap Home Medications: Home Meds Docusate Sodium [Colace] 200 mg PO BID 09/12/14 [History] Polyethylene Glycol 3350 [MiraLAX] 17 gm PO DAILY 02/18/15 [History] traMADol [Ultram] 50 mg PO Q6H PRN 04/29/15 [History] Cholecalciferol (Vitamin D3) [Vitamin D3] 1,000 unit PO DAILY 08/10/15 [History] Simvastatin 20 mg PO BEDTIME 08/10/15 [History] Valsartan [Diovan] 320 mg PO DAILY 08/10/15 [History] Vit C/Vit E Ac/Lut/Mineral 1 [Prosight with Lutein] 1 tab PO DAILY 08/10/15 [ History] amLODIPine Besylate [Amlodipine Besylate] 5 mg PO DAILY 08/10/15 [History] Aspirin 81 mg PO DAILY 10/19/15 [History] Levothyroxine [Synthroid] 50 mcg PO DAILY 10/19/15 [History] Dicyclomine HCl [Bentyl] 20 mg PO Q6HR 10/20/15 [History] Albuterol/Ipratropium [DuoNeb 3.0-0.5 MG/3 ML] 3 ml NEB QIDRT #1 box 01/03/17 [ Rx] metFORMIN [Glucophage] 500 mg PO BIDMEALS #60 tablet 01/03/17 [Rx] Furosemide [Lasix] 10 mg PO DAILY 01/09/17 [History] Omeprazole 40 mg PO DAILY 01/09/17 [History] Sucralfate [Carafate] 1 gm PO QIDACANDBED 01/09/17 [History] Metoprolol Succinate [Toprol XL] 25 mg PO BID #0 01/15/17 [Rx] Acetaminophen 650 mg PO Q4H PRN 03/20/17 [History] Alum Hydroxide/Mag Hydroxide [Mag-Al Susp] 30 ml PO ASDIRECTED PRN 03/20/17 [ History] Estradiol [Yuvafem] 10 mcg VAG MOWEFR 03/20/17 [History] LORazepam [Ativan] 0.5 mg PO BEDTIME 03/20/17 [History] Sertraline [Zoloft] 50 mg PO DAILY 03/20/17 [History] Losartan [Cozaar] 50 mg PO DAILY #30 tablet 03/24/17 [Rx] Phenazopyridine [Urinary Pain Relief] 95 mg PO TID #40 tablet 03/24/17 [Rx] Potassium Chloride 40 meq PO BID #30 cup 03/24/17 [Rx] Saccharomyces Boulardii [Florastor] 250 mg PO BID #60 cap 03/24/17 [Rx] Patient Handouts: Hypokalemia, Heart Failure, [id number], Colitis Referrals: Germain Schaeffer MD [Primary Care Provider] - 04/02/17 12:20 pm (Please follow up with Dr. Schaeffer on FridayApril 02 at 12:20pm. ) Randall Crandall MD [Physician] - 03/26/17 11:15 am (Please follow up with Dr. Crandall at [facility] on FridayMarch 26 at 11:15 am Come at 11:00 am for registration.) - Discharge Summary/Plan Comment DC Time >30 min.: Yes (40 minute) - General Info Date of Service: 03/24/17 Admission Dx/Problem (Free Text: Admission Diagnosis/Problem Admission Diagnosis/Problem Hypokalemia Subjective Update: Pt. is laying in bed. She complains of 9/10 lower quadrant abdominal pain however she does not appear to be in any distress. Functional Status: Reports: Tolerating Diet, Ambulating, Urinating. Denies: New Symptoms - Review of Systems General: Reports: No Symptoms HEENT: Reports: No Symptoms Pulmonary: Reports: No Symptoms Cardiovascular: Reports: No Symptoms Gastrointestinal: Reports: Abdominal Pain (RLQ>LLQ. ). Denies: Constipation, Diarrhea, Nausea, Vomiting Genitourinary: Reports: No Symptoms Musculoskeletal: Reports: No Symptoms Skin: Reports: No Symptoms Neurological: Reports: No Symptoms Psychiatric: Reports: No Symptoms - Patient Data Vitals - Most Recent: Last Vital Signs Temp 97.5 F 03/24/17 07:55 Pulse 69 03/24/17 13:27 Resp 16 03/24/17 07:55 BP 127/58 L 03/24/17 13:27 Pulse Ox 95 03/24/17 13:27 Weight - Most Recent: 90.673 kg I&O - Last 24 hours: Intake & Output 03/23/17 03/24/17 03/24/17 22:59 06:59 14:59 Intake Total 760 225 Output Total 725 650 Balance 35 -425 Lab Results - Last 24 hrs: Laboratory Results - last 24 hr 03/23/17 03/23/17 03/24/17 Range/Units 17:39 21:41 05:51 WBC (3.98-10.04) K/mm3 RBC (3.98-5.22) M/mm3 Hgb (11.2-15.7) gm/L Hct (34.1-44.9) % MCV (79.4-94.8) fl MCH (25.6-32.2) pg MCHC (32.2-35.5) g/dl RDW Std Deviation (36.4-46.3) fL Plt Count (182-369) K/mm3 MPV (9.4-12.3) fl Neut % (Auto) (34.0-71.1) % Lymph % (Auto) (19.3-51.7) % Crisp % (Auto) (4.7-12.5) % Eos % (Auto) (0.7-5.8) Baso % (Auto) (0.1-1.2) % Neut # (Auto) (1.56-6.13) K/mm3 Lymph # (Auto) (1.18-3.74) K/mm3 Crisp # (Auto) (0.24-0.36) K/mm3 Eos # (Auto) (0.04-0.36) K/mm3 Baso # (Auto) (0.01-0.08) K/mm3 Sodium (136-145) mEq/L Potassium (3.5-5.1) mEq/L Chloride (98-107) mEq/L Carbon Dioxide (21-32) mEq/L Anion Gap (5-15) BUN (7-18) mg/dL Creatinine (0.55-1.02) mg/dL Est Cr Clr Drug Dosing mL/min Estimated GFR (MDRD) (>60) mL/min BUN/Creatinine Ratio (14-18) Glucose (83-115) mg/dL POC Glucose 131 H 126 H 128 H (83-110) mg/dL Calcium (8.5-10.1) mg/dL Magnesium (1.8-2.4) mg/dl 03/24/17 03/24/17 03/24/17 Range/Units 06:02 06:02 11:07 WBC 4.99 (3.98-10.04) K/mm3 RBC 3.87 L (3.98-5.22) M/mm3 Hgb 10.9 L (11.2-15.7) gm/L Hct 35.4 (34.1-44.9) % MCV 91.5 (79.4-94.8) fl MCH 28.2 (25.6-32.2) pg MCHC 30.8 L (32.2-35.5) g/dl RDW Std Deviation 51.4 H (36.4-46.3) fL Plt Count 241 (182-369) K/mm3 MPV 10.8 (9.4-12.3) fl Neut % (Auto) 63.6 (34.0-71.1) % Lymph % (Auto) 20.2 (19.3-51.7) % Crisp % (Auto) 12.0 (4.7-12.5) % Eos % (Auto) 3.6 (0.7-5.8) Baso % (Auto) 0.2 (0.1-1.2) % Neut # (Auto) 3.17 (1.56-6.13) K/mm3 Lymph # (Auto) 1.01 L (1.18-3.74) K/mm3 Crisp # (Auto) 0.60 H (0.24-0.36) K/mm3 Eos # (Auto) 0.18 (0.04-0.36) K/mm3 Baso # (Auto) 0.01 (0.01-0.08) K/mm3 Sodium 143 (136-145) mEq/L Potassium 4.3 (3.5-5.1) mEq/L Chloride 108 H (98-107) mEq/L Carbon Dioxide 29 (21-32) mEq/L Anion Gap 10.3 (5-15) BUN 5 L (7-18) mg/dL Creatinine 0.9 (0.55-1.02) mg/dL Est Cr Clr Drug Dosing 33.42 mL/min Estimated GFR (MDRD) 60 (>60) mL/min BUN/Creatinine Ratio 5.6 L (14-18) Glucose 133 H (83-115) mg/dL POC Glucose 132 H (83-110) mg/dL Calcium 8.5 (8.5-10.1) mg/dL Magnesium 2.1 (1.8-2.4) mg/dl TRU Results - Last 24 hrs: Microbiology 03/21/17 20:25 Stool Culture - Preliminary Stool / Feces - Final - Final 03/20/17 00:58 Aerobic Blood Culture - Preliminary Blood - Venous - Lab Draw NO GROWTH AFTER 4 DAYS Anaerobic Blood Culture - Preliminary NO GROWTH AFTER 4 DAYS 03/20/17 00:40 Aerobic Blood Culture - Preliminary Blood - Venous NO GROWTH AFTER 4 DAYS Anaerobic Blood Culture - Preliminary NO GROWTH AFTER 4 DAYS Med Orders - Current: Current Medications Hydrocodone Bitart/Acetaminophen ([place] 325-10 Mg) 1 tab PO Q6H PRN PRN Reason: Pain (moderate 4-6) Last Admin: 03/23/17 21:39 Dose: 1 tab Al Hydroxide/Mg Hydroxide (Mag-Al Plus) 30 ml PO ASDIRECTED PRN PRN Reason: Heartburn Albuterol/Ipratropium (Duoneb 3.0-0.5 Mg/3 Ml) 3 ml NEB QIDRT [facility] Last Admin: 03/24/17 09:05 Dose: 3 ml Amlodipine Besylate (Norvasc) 5 mg PO DAILY [facility] Last Admin: 03/24/17 08:37 Dose: 5 mg Aspirin (Aspirin) 81 mg PO DAILY [facility] Last Admin: 03/24/17 08:34 Dose: 81 mg Cholecalciferol (Vitamin D3) 1,000 units PO DAILY [facility] Last Admin: 03/24/17 08:38 Dose: 1,000 units Dextrose/Water (Dextrose 50% In Water) 50 ml IVPUSH ASDIRECTED PRN PRN Reason: Hypoglycemia Dicyclomine HCl (Bentyl) 20 mg PO Q6HR [facility] Last Admin: 03/24/17 11:52 Dose: 20 mg Docusate Sodium (Colace) 200 mg PO BID [facility] Last Admin: 03/24/17 08:34 Dose: 200 mg Enoxaparin Sodium (Lovenox) 40 mg SUBCUT DAILY [facility] Last Admin: 03/24/17 08:37 Dose: 40 mg Furosemide (Lasix) 10 mg PO DAILY [facility] Last Admin: 03/24/17 08:35 Dose: 10 mg Hydralazine HCl (Apresoline) 10 mg IVPUSH Q8H PRN PRN Reason: Hypertension Last Admin: 03/24/17 12:31 Dose: 10 mg Levofloxacin/Dextrose 750 mg/ (Premix) 150 mls @ 100 mls/hr IV Q48H [facility] Last Admin: 03/24/17 05:33 Dose: 100 mls/hr Insulin Aspart (Novolog) 0 unit SUBCUT ACBED [facility] PRN Reason: Protocol Last Admin: 03/24/17 11:52 Dose: Not Given Levothyroxine Sodium (Synthroid) 50 mcg PO ACBREAKFAST [facility] Last Admin: 03/24/17 05:22 Dose: 50 mcg Lorazepam (Ativan) 0.5 mg PO BEDTIME [facility] Last Admin: 03/23/17 20:49 Dose: 0.5 mg Losartan Potassium (Cozaar) 100 mg PO DAILY [facility] Last Admin: 03/24/17 08:34 Dose: 100 mg Losartan Potassium (Cozaar) 50 mg PO DAILY [facility] Last Admin: 03/24/17 08:35 Dose: 50 mg Metoprolol Succinate (Toprol Xl) 25 mg PO BID [facility] Last Admin: 03/24/17 08:38 Dose: 25 mg Ondansetron HCl (Zofran) 4 mg IVPUSH Q4H PRN PRN Reason: nausea Last Admin: 03/22/17 11:08 Dose: 4 mg Pantoprazole Sodium (Protonix) 40 mg PO DAILY@0700 [facility] Last Admin: 03/24/17 06:22 Dose: 40 mg Estradiol [Yuvafem] (10 Mcg) 0 each VAG MOWEFR [facility] Last Admin: 03/24/17 08:49 Dose: Not Given Phenazopyridine HCl (Urinary Pain Relief) 95 mg PO TIDPC [facility] Last Admin: 03/24/17 12:31 Dose: 95 mg Polyethylene Glycol (Miralax) 17 gm PO DAILY [facility] Last Admin: 03/24/17 08:37 Dose: 17 gm Potassium Chloride (Potassium Chloride) 40 meq PO BID [facility] Last Admin: 03/24/17 08:37 Dose: 40 meq Saccharomyces Boulardii (Florastor) 250 mg PO BID [facility] Last Admin: 03/24/17 08:35 Dose: 250 mg Sertraline HCl (Zoloft) 50 mg PO DAILY [facility] Last Admin: 03/24/17 08:39 Dose: 50 mg Simvastatin (Zocor) 20 mg PO BEDTIME [facility] Last Admin: 03/23/17 20:48 Dose: 20 mg Sucralfate (Carafate) 1 gm PO QIDACANDBED [facility] Last Admin: 03/24/17 11:52 Dose: 1 gm Temazepam (Restoril) 7.5 mg PO BEDTIME PRN PRN Reason: Insomnia Last Admin: 03/22/17 19:57 Dose: 7.5 mg Tramadol HCl (Ultram) 50 mg PO Q6H PRN PRN Reason: Pain Last Admin: 03/22/17 21:12 Dose: 50 mg Discontinued Medications Enoxaparin Sodium (Lovenox) 30 mg SUBCUT DAILY [facility] Last Admin: 03/23/17 11:15 Dose: 30 mg Hydromorphone HCl (Dilaudid) 0.5 mg IVPUSH Q6H PRN PRN Reason: Pain Last Admin: 03/21/17 22:27 Dose: 0.5 mg Sodium Chloride (Normal Saline) 500 mls @ 999 mls/hr IV .BOLUS ONE Stop: 03/19/17 20:47 Last Admin: 03/19/17 20:42 Dose: 999 mls/hr Magnesium Sulfate 2 gm/ Premix 50 mls @ 50 mls/hr IV ONETIME ONE Stop: 03/19/17 23:11 Last Admin: 03/19/17 22:53 Dose: 50 mls/hr Sodium Chloride (Normal Saline) 1,000 mls @ 150 mls/hr IV ASDIRECTED [facility] Potassium Chloride/Dextrose/Sod Cl (D5 Ns With 20 Meq Kcl) 1,000 mls @ 100 mls/ hr IV ASDIRECTED [facility] Stop: 03/20/17 07:00 Last Admin: 03/20/17 01:02 Dose: 100 mls/hr Magnesium Sulfate 2 gm/ Premix 50 mls @ 25 mls/hr IV ONETIME ONE Stop: 03/20/17 02:14 Last Admin: 03/20/17 02:55 Dose: 25 mls/hr Metronidazole 500 mg/ Premix 100 mls @ 100 mls/hr IV Q8H [facility] Last Admin: 03/21/17 15:37 Dose: 100 mls/hr Levofloxacin/Dextrose 750 mg/ (Premix) 150 mls @ 100 mls/hr IV ONETIME ONE Stop: 03/20/17 02:08 Last Admin: 03/20/17 04:53 Dose: 100 mls/hr Levofloxacin/Dextrose 750 mg/ (Premix) 150 mls @ 100 mls/hr IV Q24H [facility] Last Admin: 03/20/17 06:53 Dose: Not Given Levofloxacin/Dextrose 750 mg/ (Premix) 150 mls @ 100 mls/hr IV Q48H [facility] Last Admin: 03/24/17 05:34 Dose: Not Given Sodium Chloride (Normal Saline) 1,000 mls @ 100 mls/hr IV ASDIRECTED [facility] Last Admin: 03/21/17 15:37 Dose: 100 mls/hr Magnesium Sulfate 2 gm/ Premix 50 mls @ 25 mls/hr IV ONETIME ONE Stop: 03/21/17 12:14 Last Admin: 03/21/17 11:07 Dose: 25 mls/hr Dextrose/Sodium Chloride (Dextrose 5%-1/2 Ns) 1,000 mls @ 75 mls/hr IV ASDIRECTED [facility] Last Admin: 03/21/17 20:22 Dose: 75 mls/hr Magnesium Sulfate 2 gm/ Premix 50 mls @ 25 mls/hr IV ONETIME ONE Stop: 03/22/17 13:44 Last Admin: 03/22/17 12:07 Dose: 25 mls/hr Magnesium Sulfate 2 gm/ Premix 50 mls @ 25 mls/hr IV ONETIME ONE Stop: 03/23/17 16:35 Last Admin: 03/23/17 15:34 Dose: 25 mls/hr Insulin Aspart (Novolog) 0 unit SUBCUT Q6H [facility] PRN Reason: Protocol Last Admin: 03/21/17 20:22 Dose: Not Given Morphine Sulfate (Morphine) 1 mg IVPUSH Q4H PRN PRN Reason: Pain Last Admin: 03/21/17 08:56 Dose: 1 mg Ondansetron HCl (Zofran) 4 mg IVPUSH ONETIME ONE Stop: 03/19/17 20:18 Last Admin: 03/19/17 20:43 Dose: 4 mg Potassium Chloride (Potassium Chloride Solution) 60 meq PO ONETIME ONE Stop: 03/20/17 00:17 Last Admin: 03/20/17 01:30 Dose: 60 meq Potassium Chloride (Potassium Chloride) 60 meq PO ONETIME ONE Stop: 03/21/17 12:01 Last Admin: 03/21/17 11:13 Dose: 60 meq - Exam Quality Assessment: Reports: Supplemental Oxygen (Weaning off ), DVT Prophylaxis General: Reports: Alert, Oriented, Cooperative HEENT: Reports: Pupils Equal, Pupils Reactive, Mucous Membr. Moist/[place] Neck: Reports: Supple, Trachea Midline, No JVD Lungs: Reports: Clear to Auscultation, Normal Respiratory Effort Cardiovascular: Reports: Regular Rate, Regular Rhythm GI/Abdominal Exam: Normal Bowel Sounds, Soft, No Organomegaly, No Distention, No Abnormal Bruit, No Mass, Tender (RLQ>LLQ although no increase in pain during palpation ) (Female) Exam: Deferred Rectal (Female) Exam: Deferred Extremities: Normal Inspection, Non-Tender, Normal Capillary Refill Skin: Reports: Warm, Dry, Intact Neurological: Reports: No New Focal Deficit Psy/Mental Status: Reports: Alert, Normal Affect, Normal Mood Physical Findings Comments:: Reports 9/10 constant abdominal pain. Patient had complained of pain throughout entire stay although it has moved around slightly. *Q Meaningful Use (DIS) - VTE *Q VTE Criteria *Q: - Stroke *Q Stroke Criteria *Q: - AMI *Q AMI Criteria *Q: <Cristal Ackerman - Last Filed: 03/24/17 17:06> Discharge Summary - Hospital Course Free Text/Narrative:: See above for summary, suspect source of discomfort. - Patient Summary/Data Consults: Consultations 03/20/17 00:20 OT Evaluation and Treatment [CONS] Routine PT Evaluation and Treatment [CONS] Routine 03/20/17 00:21 Consult to Case Management [CONS] Routine - Patient Data Vitals - Most Recent: Last Vital Signs Temp 36.4 C 03/24/17 07:55 Pulse 69 03/24/17 13:27 Resp 16 03/24/17 07:55 BP 127/58 L 03/24/17 13:27 Pulse Ox 95 03/24/17 13:27 I&O - Last 24 hours: Intake & Output 03/24/17 03/24/17 03/24/17 06:59 14:59 22:59 Intake Total 225 Output Total 650 Balance -425 Lab Results - Last 24 hrs: Laboratory Results - last 24 hr 03/23/17 03/23/17 03/24/17 Range/Units 17:39 21:41 05:51 WBC (3.98-10.04) K/mm3 RBC (3.98-5.22) M/mm3 Hgb (11.2-15.7) gm/L Hct (34.1-44.9) % MCV (79.4-94.8) fl MCH (25.6-32.2) pg MCHC (32.2-35.5) g/dl RDW Std Deviation (36.4-46.3) fL Plt Count (182-369) K/mm3 MPV (9.4-12.3) fl Neut % (Auto) (34.0-71.1) % Lymph % (Auto) (19.3-51.7) % Crisp % (Auto) (4.7-12.5) % Eos % (Auto) (0.7-5.8) Baso % (Auto) (0.1-1.2) % Neut # (Auto) (1.56-6.13) K/mm3 Lymph # (Auto) (1.18-3.74) K/mm3 Crisp # (Auto) (0.24-0.36) K/mm3 Eos # (Auto) (0.04-0.36) K/mm3 Baso # (Auto) (0.01-0.08) K/mm3 Sodium (136-145) mEq/L Potassium (3.5-5.1) mEq/L Chloride (98-107) mEq/L Carbon Dioxide (21-32) mEq/L Anion Gap (5-15) BUN (7-18) mg/dL Creatinine (0.55-1.02) mg/dL Est Cr Clr Drug Dosing mL/min Estimated GFR (MDRD) (>60) mL/min BUN/Creatinine Ratio (14-18) Glucose (83-115) mg/dL POC Glucose 131 H 126 H 128 H (83-110) mg/dL Calcium (8.5-10.1) mg/dL Magnesium (1.8-2.4) mg/dl 03/24/17 03/24/17 03/24/17 Range/Units 06:02 06:02 11:07 WBC 4.99 (3.98-10.04) K/mm3 RBC 3.87 L (3.98-5.22) M/mm3 Hgb 10.9 L (11.2-15.7) gm/L Hct 35.4 (34.1-44.9) % MCV 91.5 (79.4-94.8) fl MCH 28.2 (25.6-32.2) pg MCHC 30.8 L (32.2-35.5) g/dl RDW Std Deviation 51.4 H (36.4-46.3) fL Plt Count 241 (182-369) K/mm3 MPV 10.8 (9.4-12.3) fl Neut % (Auto) 63.6 (34.0-71.1) % Lymph % (Auto) 20.2 (19.3-51.7) % Crisp % (Auto) 12.0 (4.7-12.5) % Eos % (Auto) 3.6 (0.7-5.8) Baso % (Auto) 0.2 (0.1-1.2) % Neut # (Auto) 3.17 (1.56-6.13) K/mm3 Lymph # (Auto) 1.01 L (1.18-3.74) K/mm3 Crisp # (Auto) 0.60 H (0.24-0.36) K/mm3 Eos # (Auto) 0.18 (0.04-0.36) K/mm3 Baso # (Auto) 0.01 (0.01-0.08) K/mm3 Sodium 143 (136-145) mEq/L Potassium 4.3 (3.5-5.1) mEq/L Chloride 108 H (98-107) mEq/L Carbon Dioxide 29 (21-32) mEq/L Anion Gap 10.3 (5-15) BUN 5 L (7-18) mg/dL Creatinine 0.9 (0.55-1.02) mg/dL Est Cr Clr Drug Dosing 33.42 mL/min Estimated GFR (MDRD) 60 (>60) mL/min BUN/Creatinine Ratio 5.6 L (14-18) Glucose 133 H (83-115) mg/dL POC Glucose 132 H (83-110) mg/dL Calcium 8.5 (8.5-10.1) mg/dL Magnesium 2.1 (1.8-2.4) mg/dl TRU Results - Last 24 hrs: Microbiology 03/21/17 20:25 Stool Culture - Preliminary Stool / Feces - Final - Final 03/20/17 00:58 Aerobic Blood Culture - Preliminary Blood - Venous - Lab Draw NO GROWTH AFTER 4 DAYS Anaerobic Blood Culture - Preliminary NO GROWTH AFTER 4 DAYS 03/20/17 00:40 Aerobic Blood Culture - Preliminary Blood - Venous NO GROWTH AFTER 4 DAYS Anaerobic Blood Culture - Preliminary NO GROWTH AFTER 4 DAYS Med Orders - Current: Current Medications Discontinued Medications Hydrocodone Bitart/Acetaminophen ([place] 325-10 Mg) 1 tab PO Q6H PRN PRN Reason: Pain (moderate 4-6) Last Admin: 03/23/17 21:39 Dose: 1 tab Al Hydroxide/Mg Hydroxide (Mag-Al Plus) 30 ml PO ASDIRECTED PRN PRN Reason: Heartburn Albuterol/Ipratropium (Duoneb 3.0-0.5 Mg/3 Ml) 3 ml NEB QIDRT [facility] Last Admin: 03/24/17 09:05 Dose: 3 ml Amlodipine Besylate (Norvasc) 5 mg PO DAILY [facility] Last Admin: 03/24/17 08:37 Dose: 5 mg Aspirin (Aspirin) 81 mg PO DAILY [facility] Last Admin: 03/24/17 08:34 Dose: 81 mg Cholecalciferol (Vitamin D3) 1,000 units PO DAILY [facility] Last Admin: 03/24/17 08:38 Dose: 1,000 units Dextrose/Water (Dextrose 50% In Water) 50 ml IVPUSH ASDIRECTED PRN PRN Reason: Hypoglycemia Dicyclomine HCl (Bentyl) 20 mg PO Q6HR [facility] Last Admin: 03/24/17 11:52 Dose: 20 mg Docusate Sodium (Colace) 200 mg PO BID [facility] Last Admin: 03/24/17 08:34 Dose: 200 mg Enoxaparin Sodium (Lovenox) 30 mg SUBCUT DAILY [facility] Last Admin: 03/23/17 11:15 Dose: 30 mg Enoxaparin Sodium (Lovenox) 40 mg SUBCUT DAILY [facility] Last Admin: 03/24/17 08:37 Dose: 40 mg Furosemide (Lasix) 10 mg PO DAILY [facility] Last Admin: 03/24/17 08:35 Dose: 10 mg Hydralazine HCl (Apresoline) 10 mg IVPUSH Q8H PRN PRN Reason: Hypertension Last Admin: 03/24/17 12:31 Dose: 10 mg Hydromorphone HCl (Dilaudid) 0.5 mg IVPUSH Q6H PRN PRN Reason: Pain Last Admin: 03/21/17 22:27 Dose: 0.5 mg Sodium Chloride (Normal Saline) 500 mls @ 999 mls/hr IV .BOLUS ONE Stop: 03/19/17 20:47 Last Admin: 03/19/17 20:42 Dose: 999 mls/hr Magnesium Sulfate 2 gm/ Premix 50 mls @ 50 mls/hr IV ONETIME ONE Stop: 03/19/17 23:11 Last Admin: 03/19/17 22:53 Dose: 50 mls/hr Sodium Chloride (Normal Saline) 1,000 mls @ 150 mls/hr IV ASDIRECTED [facility] Potassium Chloride/Dextrose/Sod Cl (D5 Ns With 20 Meq Kcl) 1,000 mls @ 100 mls/ hr IV ASDIRECTED [facility] Stop: 03/20/17 07:00 Last Admin: 03/20/17 01:02 Dose: 100 mls/hr Magnesium Sulfate 2 gm/ Premix 50 mls @ 25 mls/hr IV ONETIME ONE Stop: 03/20/17 02:14 Last Admin: 03/20/17 02:55 Dose: 25 mls/hr Metronidazole 500 mg/ Premix 100 mls @ 100 mls/hr IV Q8H [facility] Last Admin: 03/21/17 15:37 Dose: 100 mls/hr Levofloxacin/Dextrose 750 mg/ (Premix) 150 mls @ 100 mls/hr IV ONETIME ONE Stop: 03/20/17 02:08 Last Admin: 03/20/17 04:53 Dose: 100 mls/hr Levofloxacin/Dextrose 750 mg/ (Premix) 150 mls @ 100 mls/hr IV Q24H [facility] Last Admin: 03/20/17 06:53 Dose: Not Given Levofloxacin/Dextrose 750 mg/ (Premix) 150 mls @ 100 mls/hr IV Q48H [facility] Last Admin: 03/24/17 05:34 Dose: Not Given Sodium Chloride (Normal Saline) 1,000 mls @ 100 mls/hr IV ASDIRECTED [facility] Last Admin: 03/21/17 15:37 Dose: 100 mls/hr Magnesium Sulfate 2 gm/ Premix 50 mls @ 25 mls/hr IV ONETIME ONE Stop: 03/21/17 12:14 Last Admin: 03/21/17 11:07 Dose: 25 mls/hr Dextrose/Sodium Chloride (Dextrose 5%-1/2 Ns) 1,000 mls @ 75 mls/hr IV ASDIRECTED [facility] Last Admin: 03/21/17 20:22 Dose: 75 mls/hr Magnesium Sulfate 2 gm/ Premix 50 mls @ 25 mls/hr IV ONETIME ONE Stop: 03/22/17 13:44 Last Admin: 03/22/17 12:07 Dose: 25 mls/hr Magnesium Sulfate 2 gm/ Premix 50 mls @ 25 mls/hr IV ONETIME ONE Stop: 03/23/17 16:35 Last Admin: 03/23/17 15:34 Dose: 25 mls/hr Levofloxacin/Dextrose 750 mg/ (Premix) 150 mls @ 100 mls/hr IV Q48H [facility] Last Admin: 03/24/17 05:33 Dose: 100 mls/hr Insulin Aspart (Novolog) 0 unit SUBCUT Q6H [facility] PRN Reason: Protocol Last Admin: 03/21/17 20:22 Dose: Not Given Insulin Aspart (Novolog) 0 unit SUBCUT ACBED [facility] PRN Reason: Protocol Last Admin: 03/24/17 11:52 Dose: Not Given Levothyroxine Sodium (Synthroid) 50 mcg PO ACBREAKFAST [facility] Last Admin: 03/24/17 05:22 Dose: 50 mcg Lorazepam (Ativan) 0.5 mg PO BEDTIME [facility] Last Admin: 03/23/17 20:49 Dose: 0.5 mg Losartan Potassium (Cozaar) 100 mg PO DAILY [facility] Last Admin: 03/24/17 08:34 Dose: 100 mg Losartan Potassium (Cozaar) 50 mg PO DAILY [facility] Last Admin: 03/24/17 08:35 Dose: 50 mg Metoprolol Succinate (Toprol Xl) 25 mg PO BID [facility] Last Admin: 03/24/17 08:38 Dose: 25 mg Morphine Sulfate (Morphine) 1 mg IVPUSH Q4H PRN PRN Reason: Pain Last Admin: 03/21/17 08:56 Dose: 1 mg Ondansetron HCl (Zofran) 4 mg IVPUSH ONETIME ONE Stop: 03/19/17 20:18 Last Admin: 03/19/17 20:43 Dose: 4 mg Ondansetron HCl (Zofran) 4 mg IVPUSH Q4H PRN PRN Reason: nausea Last Admin: 03/22/17 11:08 Dose: 4 mg Pantoprazole Sodium (Protonix) 40 mg PO DAILY@0700 [facility] Last Admin: 03/24/17 06:22 Dose: 40 mg Estradiol [Yuvafem] (10 Mcg) 0 each VAG MOWEFR [facility] Last Admin: 03/24/17 08:49 Dose: Not Given Phenazopyridine HCl (Urinary Pain Relief) 95 mg PO TIDPC [facility] Last Admin: 03/24/17 12:31 Dose: 95 mg Polyethylene Glycol (Miralax) 17 gm PO DAILY [facility] Last Admin: 03/24/17 08:37 Dose: 17 gm Potassium Chloride (Potassium Chloride Solution) 60 meq PO ONETIME ONE Stop: 03/20/17 00:17 Last Admin: 03/20/17 01:30 Dose: 60 meq Potassium Chloride (Potassium Chloride) 60 meq PO ONETIME ONE Stop: 03/21/17 12:01 Last Admin: 03/21/17 11:13 Dose: 60 meq Potassium Chloride (Potassium Chloride) 40 meq PO BID [facility] Last Admin: 03/24/17 08:37 Dose: 40 meq Saccharomyces Boulardii (Florastor) 250 mg PO BID [facility] Last Admin: 03/24/17 08:35 Dose: 250 mg Sertraline HCl (Zoloft) 50 mg PO DAILY [facility] Last Admin: 03/24/17 08:39 Dose: 50 mg Simvastatin (Zocor) 20 mg PO BEDTIME [facility] Last Admin: 03/23/17 20:48 Dose: 20 mg Sucralfate (Carafate) 1 gm PO QIDACANDBED [facility] Last Admin: 03/24/17 11:52 Dose: 1 gm Temazepam (Restoril) 7.5 mg PO BEDTIME PRN PRN Reason: Insomnia Last Admin: 03/22/17 19:57 Dose: 7.5 mg Tramadol HCl (Ultram) 50 mg PO Q6H PRN PRN Reason: Pain Last Admin: 03/22/17 21:12 Dose: 50 mg *Q Meaningful Use (DIS) - VTE *Q VTE Criteria *Q: - Stroke *Q Stroke Criteria *Q: - AMI *Q AMI Criteria *Q:
== END 2017-03-24 14:14 | disposition home or self-care (01) | DRG 392 ==
LOC: JD.ED 19:32 → JD.MS 23:28 → UNDOADMIN 23:28 → JD.MS 23:59 → UNDODISIN 03-24 14:14
PROVIDERS: ADMIT Internal Medicine Cardiovascular Disease; ATTEND Internal Medicine Cardiovascular Disease
DX: E87.6 Hypokalemia (principal); K52.9 Noninfective gastroenteritis and colitis, unspecified; N39.0 Urinary tract infection, site not specified; E86.1 Hypovolemia; I10 Essential (primary) hypertension; E83.42 Hypomagnesemia; K57.30 Diverticulosis of large intestine without perforation or abscess without bleeding; E11.9 Type 2 diabetes mellitus without complications; R53.1 Weakness; I11.0 Hypertensive heart disease with heart failure; I50.9 Heart failure, unspecified; E03.9 Hypothyroidism, unspecified; Z79.84 Long term (current) use of oral hypoglycemic drugs; E78.00 Pure hypercholesterolemia, unspecified; K21.9 Gastro-esophageal reflux disease without esophagitis; Z68.30 Body mass index [BMI] 30.0-30.9, adult; K44.9 Diaphragmatic hernia without obstruction or gangrene; F32.9 Major depressive disorder, single episode, unspecified; F41.9 Anxiety disorder, unspecified; Z88.1 Allergy status to other antibiotic agents; Z96.641 Presence of right artificial hip joint; Z96.653 Presence of artificial knee joint, bilateral; Z88.2 Allergy status to sulfonamides; Z79.82 Long term (current) use of aspirin; Z79.899 Other long term (current) drug therapy; N32.81 Overactive bladder; R32 Unspecified urinary incontinence; M19.90 Unspecified osteoarthritis, unspecified site; E66.9 Obesity, unspecified; Z68.39 Body mass index [BMI] 39.0-39.9, adult
CPT/HCPCS: 36415; 74177; 80053; 81001; 83605; 83690; 83735; 84484; 85025; 87086; 87493 ×2; 93005; 96361; 96365; 96375; 99285; J2405; J7040; P9612; 80048; 82962; 84443; 86140; 87040; 87046; 87328; 87329; 89055; 94640-76; 94664; 94760; 94761; 97162-GP; 97165-GO; A9270-GY; J0360; J1170; J1650; J1815-GY; J1956; J2270; J3475; J3480; J7042

== ENCOUNTER 2017-04-07 15:40 | Emergency (ER) | payer MEDICARE, BC ==
[2017-04-07] MEDS ORDERED: Sodium Chloride 0.9% 10 ML Syringe FLUSH PRN ×2 (16:07→18:33)
--- NOTE | 2017-04-07 16:13 | EDM.PDOC ---
ED HPI GENERAL MEDICAL PROBLEM - General Chief Complaint: Gastrointestinal Problem Stated Complaint: BLADDER AND STOMACH PAIN Time Seen by Provider: 04/07/17 16:00 Source of Information: Reports: Patient, Family History Limitations: Reports: No Limitations - History of Present Illness INITIAL COMMENTS - FREE TEXT/NARRATIVE: Patient is a 82-year-old female presents ED complaining of periumbilical and suprapubic abdominal discomfort. Patient states pain started approximately 2 days ago. Described as a sharp, throbbing, cramping discomfort that waxes and wanes in intensity. Notes pain with urination. This has progressively worsened. Patient has a history of overactive bladder and receives Botox injections. She was recently admitted to the hospital for similar complaints. CT the abdomen/ pelvis at that time did reveal mild colitis. She was treated with antibiotics. She was discharged 03/24/2017. She was seen by her PCP earlier today. I did speak with him and he is concerned that patient may have a gastric ulcer. Patient reported black stool. Upon rectal digital examination there was no dark stool present. No concerns for bleeding at this time. He believed the patient to be dehydrated requiring IV fluids and also admission for possible EGD by general surgeon to ensure she does not have a gastric ulcer. She's had a poor appetite. She's been drinking fluids. There is no nausea no vomiting. She's had a few loose stools described as soft and formed. No blood present. She has no chest pain, fever, shortness of breath, or any additional complaints. During her hospital stay patient complained of frequent trips to the bathroom. This most likely related to her Lasix and overactive bladder. She continued to have pain to her abdomen rated 9 on a 10 with no clear etiology. Wbc's and CRP remained within normal limits. Urine culture did not grow out any organisms. Stool cultures were negative. It was suggested patient be evaluated by a van cdl driver since this may be the origin of pain. Lower Abdomen Pain Score (Numeric/FACES): 9 - Related Data Allergies Allergy/AdvReac Type Severity Reaction Status Date / Time amoxicillin AdvReac Nausea and Verified 04/07/17 15:53 Vomiting amoxicillin trihydrate AdvReac Nausea and Verified 04/07/17 15:53 [From Augmentin] Vomiting ciprofloxacin AdvReac Nausea and Verified 04/07/17 15:53 Vomiting potassium clavulanate AdvReac Nausea and Verified 04/07/17 15:53 [From Augmentin] Vomiting Sulfa (Sulfonamide AdvReac Nausea and Verified 04/07/17 15:53 Antibiotics) Vomiting Home Meds: Home Meds Docusate Sodium [Colace] 200 mg PO BID 09/12/14 [History] Polyethylene Glycol 3350 [MiraLAX] 17 gm PO DAILY 02/18/15 [History] traMADol [Ultram] 50 mg PO Q6H PRN 04/29/15 [History] Cholecalciferol (Vitamin D3) [Vitamin D3] 1,000 unit PO DAILY 08/10/15 [History] Simvastatin 20 mg PO DAILY 08/10/15 [History] Valsartan [Diovan] 320 mg PO DAILY 08/10/15 [History] Vit C/Vit E Ac/Lut/Mineral 1 [Prosight with Lutein] 1 tab PO DAILY 08/10/15 [ History] amLODIPine Besylate [Amlodipine Besylate] 5 mg PO DAILY 08/10/15 [History] Aspirin 81 mg PO DAILY 10/19/15 [History] Levothyroxine [Synthroid] 50 mcg PO DAILY 10/19/15 [History] Dicyclomine HCl [Bentyl] 20 mg PO Q6HR 10/20/15 [History] Albuterol/Ipratropium [DuoNeb 3.0-0.5 MG/3 ML] 3 ml NEB QIDRT #1 box 01/03/17 [ Rx] metFORMIN [Glucophage] 500 mg PO BIDMEALS #60 tablet 01/03/17 [Rx] Furosemide [Lasix] 10 mg PO DAILY 01/09/17 [History] Omeprazole 40 mg PO DAILY 01/09/17 [History] Sucralfate [Carafate] 1 gm PO QIDACANDBED 01/09/17 [History] Metoprolol Succinate [Toprol XL] 25 mg PO BID #0 01/15/17 [Rx] Acetaminophen 650 mg PO Q4H PRN 03/20/17 [History] Alum Hydroxide/Mag Hydroxide [Mag-Al Susp] 30 ml PO ASDIRECTED PRN 03/20/17 [ History] LORazepam [Ativan] 0.5 mg PO BEDTIME 03/20/17 [History] Sertraline [Zoloft] 50 mg PO DAILY 03/20/17 [History] Losartan [Cozaar] 50 mg PO DAILY #30 tablet 03/24/17 [Rx] Phenazopyridine [Urinary Pain Relief] 95 mg PO TID #40 tablet 03/24/17 [Rx] Potassium Chloride 40 meq PO BID #30 cup 03/24/17 [Rx] Saccharomyces Boulardii [Florastor] 250 mg PO BID #60 cap 03/24/17 [Rx] Estrogens, Conjugated [Premarin Vaginal Crm] 1 applic TOP DAILY 04/07/17 [ History] Past Medical History HEENT History: Reports: None Cardiovascular History: Reports: High Cholesterol, Hypertension Respiratory History: Reports: PE Gastrointestinal History: Reports: Colon Polyp, Diverticulosis, GERD, Hemorrhoids Other Gastrointestinal History: gastric ulcer, abdominal pain, lapartomy Genitourinary History: Reports: Urinary Incontinence (spastic bladder) Other Genitourinary History: cystitis; botos injections in the bladder 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: Musculoskeletal History: Reports: Arthritis Psychiatric History: Reports: Anxiety, Depression Endocrine/Metabolic History: Reports: Diabetes, Type II, Hypothyroidism, Obesity /BMI 30+ Hematologic History: Reports: Anemia Dermatologic History: Reports: Seborrheic Dermatitis - Infectious Disease History Infectious Disease History: Reports: Rheumatic Fever - Past Surgical History HEENT Surgical History: Reports: Cataract Surgery, Tonsillectomy GI Surgical History: Reports: Appendectomy, Cholecystectomy, Lysis of Adhesions , Adriane Fundoplication Female Surgical History: Reports: Hysterectomy, Salpingo-Oophorectomy Musculoskeletal Surgical History: Reports: Hip Replacement (right), Knee Replacement (bilateral) Social & Family History - Family History Cardiac: Reports: [place] Other Cardiac Family History: Mother OBGYN: Reports: Endocrine/Metabolic: Reports: Diabetes, type II Oncologic: Reports: Colon - Tobacco Use Smoking Status *Q: Never Smoker Second Hand Smoke Exposure: No - Caffeine Use Caffeine Use: Reports: Coffee, Tea Other Caffeine Use: coffee in the morning - Alcohol Use Days Per Week of Alcohol Use: 0 Number of Drinks Per Day: 0 Total Drinks Per Week: 0 - Recreational Drug Use Recreational Drug Use: No Drug Use in Last 12 Months: No - Living Situation & Occupation Living situation: Reports: , with Spouse Occupation: Retired ED ROS GENERAL - Review of Systems Review Of Systems: See Below Constitutional: Reports: Decreased Appetite. Denies: Fever, Chills, Malaise HEENT: Reports: No Symptoms Respiratory: Denies: Shortness of Breath, Cough, Sputum Cardiovascular: Denies: Chest Pain, Dyspnea on Exertion, Lightheadedness, Orthopnea, Palpitations, PND, Syncope GI/Abdominal: Reports: Abdominal Pain, Black Stool (one episode), Decreased Appetite. Denies: Bloody Stool, Constipation, Diarrhea, Distension, Flatus, Hematemesis, Hematochezia, Melena, Nausea, Vomiting : Reports: Dysuria, Frequency, Pain, Urgency. Denies: Discharge, Flank Pain, Hematuria, Urinary Retention Musculoskeletal: Denies: Back Pain Neurological: Reports: No Symptoms ED EXAM, GI/ABD - Physical Exam Exam: See Below Exam Limited By: No Limitations General Appearance: Alert, WD/WN, No Apparent Distress Ears: Hearing Grossly Normal Nose: Normal Inspection Throat/Mouth: Normal Voice, No Airway Compromise, Other (Dry Mouth, per patient normally dry with taking lasix. No worse today. ) Neck: Normal Inspection, Supple Respiratory/Chest: No Respiratory Distress, Lungs Clear, Normal Breath Sounds, No Accessory Muscle Use, Chest Non-Tender Cardiovascular: Normal Peripheral Pulses, Regular Rate, Rhythm GI/Abdominal Exam: Normal Bowel Sounds, Soft, No Organomegaly, No Distention, Tender (peigastric, periumbilical region) Back Exam: Normal Inspection Extremities: Non-Tender, Normal Capillary Refill, Pedal Edema (trace to 1+) Neurological: Alert, Oriented, CN II-XII Intact, Normal Cognition, No Motor/ Sensory Deficits Psychiatric: Normal Affect, Normal Mood Skin Exam: Warm, Dry, Intact, Normal Color, No Rash Course - Vital Signs Last Recorded V/S: Last Vital Signs Temp 97.3 F 04/07/17 16:50 Pulse 81 04/07/17 16:50 Resp 20 04/07/17 16:50 BP 156/59 H 04/07/17 16:50 Pulse Ox 88 L 04/07/17 16:50 Orthostatic Blood Pressure [ 128/99 Standing] Orthostatic Blood Pressure [ 136/89 Sitting] Orthostatic Blood Pressure [ 146/59 Supine] - Orders/Labs/Meds Labs: Laboratory Tests 04/07/17 04/07/17 04/07/17 Range/Units 16:50 16:50 17:06 WBC 5.54 (3.98-10.04) K/mm3 RBC 4.10 (3.98-5.22) M/mm3 Hgb 11.1 L (11.2-15.7) gm/L Hct 35.5 (34.1-44.9) % MCV 86.6 (79.4-94.8) fl MCH 27.1 (25.6-32.2) pg MCHC 31.3 L (32.2-35.5) g/dl RDW Std Deviation 47.6 H (36.4-46.3) fL Plt Count 252 (182-369) K/mm3 MPV 10.0 (9.4-12.3) fl Neut % (Auto) 70.8 (34.0-71.1) % Lymph % (Auto) 17.3 L (19.3-51.7) % Reynolds % (Auto) 9.9 (4.7-12.5) % Eos % (Auto) 1.4 (0.7-5.8) Baso % (Auto) 0.2 (0.1-1.2) % Neut # (Auto) 3.92 (1.56-6.13) K/mm3 Lymph # (Auto) 0.96 L (1.18-3.74) K/mm3 Reynolds # (Auto) 0.55 H (0.24-0.36) K/mm3 Eos # (Auto) 0.08 (0.04-0.36) K/mm3 Baso # (Auto) 0.01 (0.01-0.08) K/mm3 Sodium 142 (136-145) mEq/L Potassium 3.7 (3.5-5.1) mEq/L Chloride 103 (98-107) mEq/L Carbon Dioxide 31 (21-32) mEq/L Anion Gap 11.7 (5-15) BUN 11 (7-18) mg/dL Creatinine 1.2 H (0.55-1.02) mg/dL Est Cr Clr Drug Dosing 25.07 mL/min Estimated GFR (MDRD) 43 (>60) mL/min BUN/Creatinine Ratio 9.2 L (14-18) Glucose 90 (83-115) mg/dL Calcium 9.2 (8.5-10.1) mg/dL Total Bilirubin 0.5 (0.2-1.0) mg/dL AST 17 (15-37) U/L ALT 12 L (14-59) U/L Alkaline Phosphatase 97 (46-116) U/L Troponin I < 0.017 (0.00-0.056) ng/mL C-Reactive Protein 2.3 H* (<1.0) mg/dL Total Protein 6.1 L (6.4-8.2) g/dl Albumin 2.9 L (3.4-5.0) g/dl Globulin 3.2 gm/dL Albumin/Globulin Ratio 0.9 L (1-2) Lipase 89 (73-393) U/L Urine Color [place] H (Yellow) Urine Appearance Clear (Clear) Urine pH 5.5 (5.0-8.0) Ur Specific [place] 1.010 (1.005-1.030) Urine Protein 1+ H (Negative) Urine Glucose (UA) Trace H (Negative) Urine Ketones Negative (Negative) Urine Occult Blood Negative (Negative) Urine Nitrite Positive H (Negative) Urine Bilirubin Negative (Negative) Urine Urobilinogen 2.0 H (0.2-1.0) Ur Leukocyte Esterase 3+ H (Negative) Urine RBC 0-5 (0-5) /hpf Urine WBC 0-5 (0-5) /hpf Ur Epithelial Cells 0-5 (0-5) /hpf Urine Bacteria Rare (FEW) /hpf Hyaline Casts 0-5 (0-5) /lpf Urine Mucus Few (FEW) /hpf Meds: Medications Discontinued Medications Generic Name Dose Route Start Last Admin Trade Name Freq PRN Reason Stop Dose Admin Sodium Chloride 1,000 mls @ 150 mls/hr 04/07/17 16:15 04/07/17 16:52 Normal Saline IV 150 mls/hr ASDIRECTED [facility]RE[facility] Administration Sodium Chloride Confirm 04/07/17 16:43 04/07/17 16:52 Normal Saline Administered 04/07/17 16:44 Not Given Dose 1,000 mls @ as directed .ROUTE .STK-MED ONE Sodium Chloride 100 mls @ 65 mls/hr 04/07/17 18:45 04/07/17 18:54 Normal Saline IV 65 mls/hr ASDIRECTED [facility] Administration Iopamidol 100 ml 04/07/17 18:33 04/07/17 18:54 Isovue-370 (76%) IVPUSH 04/07/17 18:34 100 ml ONETIME ONE Administration Sodium Chloride 10 ml 04/07/17 16:07 Saline Flush FLUSH ASDIRECTED PRN Keep Vein Open Sodium Chloride 10 ml 04/07/17 18:33 04/07/17 18:54 Saline Flush FLUSH 10 ml ONETIME PRN Administration IV FLUSH - Re-Assessments/Exams Free Text/Narrative Re-Assessment/Exam: Peripheral IV will be established. Orthostatic vitals obtained. Initial labs include CBC, chem 14, lipase, troponin, UA, and CRP. EKG and Two-view of the abdomen will be obtained. Abdomen revealed nonspecific air in stool pattern. Few air-fluid levels. Orthostatic vitals were negative. Labs reviewed:White blood cell count 5.4, hemoglobin 11.1, platelets 252, sodium 142, potassium 3.7, BUN 11, AG 11.7, creatinine 1.2, glucose 90, troponin less than 0.017, CRP elevated 2.3, total protein 6.1, albumin 2.9, lipase 89. Spoke with Dr. Potter, states the hemoglobin is stable from previous labs. UA orange, protein one plus, glucose trace, nitrates positive, leukocyte esterase 3+, urine wbc's 0-5. Ordered urine culture. Ordered CTA of the abdomen and pelvis to rule out mesenteric ischemia. Patient has pain out of proportion. Previous CT of the abdomen pelvis revealed findings concerning for colitis. CT of the abdomen and pelvis impression: Normal enhancement of the celiac axis, superior mesenteric, renal and inferior to his enteric arteries are noted. Aorta shows no aneurysm dilatation. Diminished details within the pelvis do to her right hip prosthesis. Right adrenal mass which can remain stable from most recent exam. Moderately large hiatal hernia seen. Nothing acute is identified on CT study of the abdomen and pelvis. 04/07/17 19:52 Reassessment, patients pain is minimal at this time. No pain with palpation of the epigastric region. Mild pain to the periumbilical area. Discussed results of labs and CT with patient. Believe patients pain is chronic associated with the bladder spasms she routinely has. Patient receives botox injections for this. In addition patient has history of constipation and was recently started on metamucil. This maybe contributing as well. Patient and agree with being discharged home. They will followup with PCP to discuss referral for EGD. Departure - Departure Time of Disposition: 19:55 Disposition: Home, Self-Care 01 Condition: Good Clinical Impression: Abdominal pain Qualifiers: Abdominal location: generalized Qualified Code(s): R10.84 - Generalized abdominal pain Malnutrition Qualifiers: Protein-calorie malnutrition severity: unspecified severity - Discharge Information Instructions: Abdominal Pain, Adult, [id number] Referrals: Germain Schaeffer MD [Primary Care Provider] - Forms: ED Department Discharge Additional Instructions: Etiology of abdominal complaint unclear at this time. Maybe associated with bladder spasms you regularly experience and/or related to constipation. Labs did reveal findings concerning for malnutrition. Suggest eating a well balanced 3 meals a day. If needed utilize ensure. Continue taking all your home medications as prescribed. Urine culture obtained if positive and needs antibiotic treatment you will be notified. Take tylenol for pain as needed. Followup with PCP the end of this week or first part of next week for reevaluation. Return to the E.D. for any new or worsening symptoms.
[2017-04-07] MEDS ORDERED: Sodium Chloride 0.9% 1,000 ML IV SCH (16:15)
[2017-04-07] MEDS ORDERED: Sodium Chloride 0.9% 1,000 ML ONE (16:43)
[2017-04-07 16:51] VITALS: BP 156/59
--- NOTE | 2017-04-07 18:23 | CR ---
Abdomen: Supine and upright views of the abdomen were obtained. Comparison: Previous CT abdomen and pelvis exam on 03/19/17. Right hip prosthesis is seen. Mild scoliosis and degenerative change is seen within the spine. Surgical clips are noted within the right abdomen from prior cholecystectomy. Bowel gas pattern is normal. Calcifications are seen within the pelvis which are compatible with phleboliths. Impression: 1. Incidental findings. Nothing acute is seen on two-view abdominal x-ray. Diagnostic code #2
[2017-04-07] MEDS ORDERED: Iopamidol 755 Mg/ML 100 ML Bottle IVPUSH ONE (18:33)
[2017-04-07] MEDS ORDERED: Sodium Chloride 0.9% 100 ML IV SCH (18:45)
--- NOTE | 2017-04-07 19:40 | CT ---
CT abdomen and pelvis technique: Multiple axial sections were obtained from above the dome of the diaphragm inferiorly through the pubic symphysis. Intravenous contrast was utilized. Study was obtained during the arterial phase. Comparison: Previous pelvis exam of 03/19/17. Findings: Celiac axis and superior mesenteric arteries show no stenosis or occlusion. Right and left renal arteries are felt to be patent with minimal atherosclerotic change. Inferior mesenteric artery also shows patency. Aorta shows no aneurysmal dilatation. Visualized lung bases shows nothing acute. Liver and spleen shows no focal parenchymal abnormality. Moderately large hiatal hernia is seen. Right adrenal mass is identified which on the coronal images measures about 3.8 cm which is stable from most recent exam. Left adrenal gland is unremarkable. Kidneys show symmetric contrast enhancement without hydronephrosis or mass. No mesenteric abnormalities are seen. No retroperitoneal adenopathy is seen. No pelvic mass or adenopathy is seen. Slight artifact pelvis right hip prosthesis is noted. Appendix is not seen. Scattered degenerative change is noted within the spine. Impression: 1. Normal enhancement of the celiac axis, superior mesenteric, renal and inferior mesenteric arteries are noted. Aorta shows no aneurysmal dilatation. 2. Diminished details within the pelvis due to right hip prosthesis. 3. Right adrenal mass which remains stable from most recent exam. Moderately large hiatal hernia is seen. 4. Nothing acute is identified on CT study of the abdomen and pelvis. Diagnostic code #3
== END 2017-04-07 20:05 | disposition home or self-care (01) ==
LOC: JD.ED 15:40
DX: R10.84 Generalized abdominal pain (principal); E46 Unspecified protein-calorie malnutrition; E78.00 Pure hypercholesterolemia, unspecified; I10 Essential (primary) hypertension; K21.9 Gastro-esophageal reflux disease without esophagitis; F41.9 Anxiety disorder, unspecified; F32.9 Major depressive disorder, single episode, unspecified; E11.9 Type 2 diabetes mellitus without complications; E03.9 Hypothyroidism, unspecified; E66.9 Obesity, unspecified; Z86.2 Personal history of diseases of the blood and blood-forming organs and certain disorders involving the immune mechanism; Z88.1 Allergy status to other antibiotic agents; Z88.2 Allergy status to sulfonamides; Z79.899 Other long term (current) drug therapy; Z79.82 Long term (current) use of aspirin; Z79.84 Long term (current) use of oral hypoglycemic drugs; Z68.38 Body mass index [BMI] 38.0-38.9, adult
CPT/HCPCS: 36415; 74020; 74177; 80053; 81001; 83690; 84484; 85025; 86140; 87086; 93005; 96360; 96361; 99285; J7030; J7040; J7050; Q9967

== ENCOUNTER 2017-06-25 16:03 | Emergency (ER) | payer MEDICARE, BC ==
[2017-06-25 16:15] VITALS: BP 161/81
[2017-06-25] MEDS ORDERED: Ondansetron 4 MG/2 ML SDV IVPUSH ONE (16:31)
[2017-06-25] MEDS ORDERED: HYDROmorphone 0.5 MG/0.5 ML Syringe IVPUSH ONE ×2 (16:31→19:37)
--- NOTE | 2017-06-25 16:40 | EDM.PDOC ---
ED HPI GENERAL MEDICAL PROBLEM - General Chief Complaint: Lower Extremity Injury/Pain Stated Complaint: [facility] Time Seen by Provider: 06/25/17 16:13 Source of Information: Reports: Patient History Limitations: Reports: No Limitations - History of Present Illness INITIAL COMMENTS - FREE TEXT/NARRATIVE: Patient is a 82-year-old female who presents to the ED complaining of right hip and knee pain. Patient has had a total right knee replacement in 2017 at [facility]. is present states the patient was walking up some stairs and was unable to lift her right leg thus she lost her balance and her grabbed her lowering her to the ground. During this process the patient injured the above areas. Patient has increasing pain with any type of palpation of the right hip and right knee. The right knee is significantly swollen in comparison to the right. She denies any dizziness, chest pain, shortness of breath, or numbness or tingling prior to the episode. She has no sensory/motor deficits distally from the injury. She does have a history of chronic abdominal pain and is on Bentyl and Pyridium. Supposedly the patient has chronic UTIs. She denies any fever/chills, nausea/vomiting, worsening abdominal pain, or any additional complaint. right knee Pain Score (Numeric/FACES): 5 - Related Data Allergies Allergy/AdvReac Type Severity Reaction Status Date / Time amoxicillin AdvReac Nausea and Verified 06/25/17 16:15 Vomiting amoxicillin trihydrate AdvReac Nausea and Verified 06/25/17 16:15 [From Augmentin] Vomiting ciprofloxacin AdvReac Nausea and Verified 06/25/17 16:15 Vomiting potassium clavulanate AdvReac Nausea and Verified 06/25/17 16:15 [From Augmentin] Vomiting Sulfa (Sulfonamide AdvReac Nausea and Verified 06/25/17 16:15 Antibiotics) Vomiting Home Meds: Home Meds Docusate Sodium [Colace] 200 mg PO BID 09/12/14 [History] traMADol [Ultram] 50 mg PO Q6H 04/29/15 [History] Cholecalciferol (Vitamin D3) [Vitamin D3] 1,000 unit PO DAILY 08/10/15 [History] Simvastatin 20 mg PO DAILY 08/10/15 [History] Valsartan [Diovan] 320 mg PO DAILY 08/10/15 [History] Vit C/Vit E Ac/Lut/Mineral 1 [Prosight with Lutein] 1 tab PO DAILY 08/10/15 [ History] amLODIPine Besylate [Amlodipine Besylate] 5 mg PO DAILY 08/10/15 [History] Aspirin 81 mg PO DAILY 10/19/15 [History] Levothyroxine [Synthroid] 0 mcg PO DAILY 10/19/15 [History] Dicyclomine HCl [Bentyl] 20 mg PO Q6HR 10/20/15 [History] Albuterol/Ipratropium [DuoNeb 3.0-0.5 MG/3 ML] 3 ml NEB QIDRT #1 box 01/03/17 [ Rx] metFORMIN [Glucophage] 500 mg PO BIDMEALS #60 tablet 01/03/17 [Rx] Furosemide [Lasix] 10 mg PO DAILY 01/09/17 [History] Omeprazole 40 mg PO DAILY 01/09/17 [History] Sucralfate [Carafate] 1 gm PO QIDACANDBED 01/09/17 [History] Metoprolol Succinate [Toprol XL] 25 mg PO BID #0 01/15/17 [Rx] Acetaminophen 650 mg PO Q4H PRN 03/20/17 [History] Alum Hydroxide/Mag Hydroxide [Mag-Al Susp] 30 ml PO ASDIRECTED PRN 03/20/17 [ History] LORazepam [Ativan] 0.5 mg PO BEDTIME 03/20/17 [History] Sertraline [Zoloft] 50 mg PO DAILY 03/20/17 [History] Phenazopyridine [Urinary Pain Relief] 95 mg PO TID #40 tablet 03/24/17 [Rx] Potassium Chloride 40 meq PO BID #30 cup 03/24/17 [Rx] Saccharomyces Boulardii [Florastor] 250 mg PO BID #60 cap 03/24/17 [Rx] Estrogens, Conjugated [Premarin Vaginal Crm] 1 applic TOP DAILY 04/07/17 [ History] Past Medical History HEENT History: Reports: None Cardiovascular History: Reports: High Cholesterol, Hypertension Respiratory History: Reports: PE Gastrointestinal History: Reports: Colon Polyp, Diverticulosis, GERD, Hemorrhoids Other Gastrointestinal History: gastric ulcer, abdominal pain, lapartomy Genitourinary History: Reports: Urinary Incontinence Other Genitourinary History: cystitis; botos injections in the bladder 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: Musculoskeletal History: Reports: Arthritis Psychiatric History: Reports: Anxiety, Depression Endocrine/Metabolic History: Reports: Diabetes, Type II, Hypothyroidism, Obesity /BMI 30+ Hematologic History: Reports: Anemia Dermatologic History: Reports: Seborrheic Dermatitis - Infectious Disease History Infectious Disease History: Reports: Rheumatic Fever - Past Surgical History HEENT Surgical History: Reports: Cataract Surgery, Tonsillectomy GI Surgical History: Reports: Appendectomy, Cholecystectomy, Lysis of Adhesions , Adriane Fundoplication Female Surgical History: Reports: Hysterectomy, Salpingo-Oophorectomy Musculoskeletal Surgical History: Reports: Hip Replacement, Knee Replacement Social & Family History - Family History Family Medical History: Noncontributory Cardiac: Reports: PR Other Cardiac Family History: Mother OBGYN: Reports: Endocrine/Metabolic: Reports: Diabetes, type II Oncologic: Reports: Colon - Tobacco Use Smoking Status *Q: Never Smoker Second Hand Smoke Exposure: No - Caffeine Use Caffeine Use: Reports: None Other Caffeine Use: coffee in the morning - Alcohol Use Days Per Week of Alcohol Use: 0 Number of Drinks Per Day: 0 Total Drinks Per Week: 0 - Recreational Drug Use Recreational Drug Use: No Drug Use in Last 12 Months: No - Living Situation & Occupation Living situation: Reports: , with Spouse Occupation: Retired Review of Systems - Review of Systems Review Of Systems: See Below Constitutional: Reports: No Symptoms Respiratory: Reports: No Symptoms Cardiovascular: Reports: No Symptoms GI/Abdominal: Reports: Abdominal Pain (chronic nothing new today. ). Denies: Nausea, Vomiting Musculoskeletal: Reports: Joint Pain (Right hip and right knee.), Joint Swelling (Right knee.) Skin: Reports: Other (Small abrasion noted to the right anterior knee.) Neurological: Reports: Difficulty Walking ED EXAM, GENERAL - Physical Exam Exam: See Below Exam Limited By: No Limitations General Appearance: Alert, WD/WN, Mild Distress Ears: Hearing Grossly Normal Nose: Normal Inspection Throat/Mouth: Normal Voice, No Airway Compromise Head: Atraumatic, Normocephalic Neck: Normal Inspection, Supple, Non-Tender, Full Range of Motion Respiratory/Chest: No Respiratory Distress, Lungs Clear, Normal Breath Sounds, No Accessory Muscle Use, Chest Non-Tender Cardiovascular: Normal Peripheral Pulses, Regular Rate, Rhythm Peripheral Pulses: 2+: Posterior Tibial (R), 3+: Radial (R) GI/Abdominal: Normal Bowel Sounds, Soft, Non-Tender, No Organomegaly, No Distention Back Exam: Normal Inspection Extremities: Other (Right lower leg: Short and externally rotated. Pain with palpation of the proximal femur and also right anterior knee. Right knee has a large surgical from previous total knee replacement. Small abrasion noted to the anterior knee. Swelling noted to the right knee comparison to the left. Decreased range of motion secondary to cover. No distal sensory motor deficits.) Neurological: Alert, Oriented, CN II-XII Intact, Normal Cognition, No Motor/ Sensory Deficits Psychiatric: Normal Affect, Normal Mood Skin Exam: Warm, Dry, Intact, Normal Color Course - Vital Signs Last Recorded V/S: Last Vital Signs Temp 97.5 F 06/25/17 16:10 Pulse 74 06/25/17 16:10 Resp 18 06/25/17 16:10 BP 161/81 H 06/25/17 16:10 Pulse Ox 93 L 06/25/17 16:10 - Orders/Labs/Meds Orders: Active Orders 24 hr Category Date Time Status Peripheral IV Care [RC] . DIRECTED Care 06/25/17 16:30 Active NPO Now [Nothing per Oral Now Diet] [DIET] Diet 06/25/17 Breakfast Active Femur wo Cont Rt [CT] Stat Exams 06/25/17 17:36 Taken Hip Min 2V or 3V Rt [CR] Stat Exams 06/25/17 16:31 Taken Knee 1V or 2V Rt [CR] Stat Exams 06/25/17 16:31 Taken UA W/MICROSCOPIC [URIN] Stat Lab 06/25/17 16:30 Uncollected Sodium Chloride 0.9% [Normal Saline] 1,000 ml Med 06/25/17 16:45 Active IV ASDIRECTED DME for Discharge [COMM] Stat Oth 06/25/17 19:29 Ordered Medication Orders Sodium Chloride (Normal Saline) 1,000 mls @ 75 mls/hr IV ASDIRECTED SHREYA Last Admin: 06/25/17 18:32 Dose: 125 mls/hr Labs: Laboratory Tests 06/25/17 06/25/17 06/25/17 Range/Units 18:30 18:30 18:30 WBC 9.48 (3.98-10.04) K/mm3 RBC 3.32 L (3.98-5.22) M/mm3 Hgb 9.5 L (11.2-15.7) gm/L Hct 30.1 L (34.1-44.9) % MCV 90.7 (79.4-94.8) fl MCH 28.6 (25.6-32.2) pg MCHC 31.6 L (32.2-35.5) g/dl RDW Std Deviation 54.9 H (36.4-46.3) fL Plt Count 322 (182-369) K/mm3 MPV 9.9 (9.4-12.3) fl Neut % (Auto) 82.5 H (34.0-71.1) % Lymph % (Auto) 10.4 L (19.3-51.7) % Summers % (Auto) 6.8 (4.7-12.5) % Eos % (Auto) 0 L (0.7-5.8) Baso % (Auto) 0.0 L (0.1-1.2) % Neut # (Auto) 7.82 H (1.56-6.13) K/mm3 Lymph # (Auto) 0.99 L (1.18-3.74) K/mm3 Summers # (Auto) 0.64 H (0.24-0.36) K/mm3 Eos # (Auto) 0.00 L (0.04-0.36) K/mm3 Baso # (Auto) 0.00 L (0.01-0.08) K/mm3 PT 11.3 (8.0-13.0) SECONDS INR 1.03 APTT 25 (22-36) SECONDS Sodium 138 (136-145) mEq/L Potassium 3.8 (3.5-5.1) mEq/L Chloride 102 (98-107) mEq/L Carbon Dioxide 25 (21-32) mEq/L Anion Gap 14.8 (5-15) BUN 11 (7-18) mg/dL Creatinine 1.2 H (0.55-1.02) mg/dL Est Cr Clr Drug Dosing 25.07 mL/min Estimated GFR (MDRD) 43 (>60) mL/min BUN/Creatinine Ratio 9.2 L (14-18) Glucose 141 H (83-115) mg/dL Hemoglobin A1c (4.50-6.20) % Calcium 9.2 (8.5-10.1) mg/dL Total Bilirubin 0.6 (0.2-1.0) mg/dL AST 16 (15-37) U/L ALT 14 (14-59) U/L Alkaline Phosphatase 111 (46-116) U/L Total Protein 6.3 L (6.4-8.2) g/dl Albumin 2.9 L (3.4-5.0) g/dl Globulin 3.4 gm/dL Albumin/Globulin Ratio 0.9 L (1-2) Blood Type Gel Antibody Screen 06/25/17 06/25/17 Range/Units 18:30 18:30 WBC (3.98-10.04) K/mm3 RBC (3.98-5.22) M/mm3 Hgb (11.2-15.7) gm/L Hct (34.1-44.9) % MCV (79.4-94.8) fl MCH (25.6-32.2) pg MCHC (32.2-35.5) g/dl RDW Std Deviation (36.4-46.3) fL Plt Count (182-369) K/mm3 MPV (9.4-12.3) fl Neut % (Auto) (34.0-71.1) % Lymph % (Auto) (19.3-51.7) % Summers % (Auto) (4.7-12.5) % Eos % (Auto) (0.7-5.8) Baso % (Auto) (0.1-1.2) % Neut # (Auto) (1.56-6.13) K/mm3 Lymph # (Auto) (1.18-3.74) K/mm3 Summers # (Auto) (0.24-0.36) K/mm3 Eos # (Auto) (0.04-0.36) K/mm3 Baso # (Auto) (0.01-0.08) K/mm3 PT (8.0-13.0) SECONDS INR APTT (22-36) SECONDS Sodium (136-145) mEq/L Potassium (3.5-5.1) mEq/L Chloride (98-107) mEq/L Carbon Dioxide (21-32) mEq/L Anion Gap (5-15) BUN (7-18) mg/dL Creatinine (0.55-1.02) mg/dL Est Cr Clr Drug Dosing mL/min Estimated GFR (MDRD) (>60) mL/min BUN/Creatinine Ratio (14-18) Glucose (83-115) mg/dL Hemoglobin A1c 4.00 L (4.50-6.20) % Calcium (8.5-10.1) mg/dL Total Bilirubin (0.2-1.0) mg/dL AST (15-37) U/L ALT (14-59) U/L Alkaline Phosphatase (46-116) U/L Total Protein (6.4-8.2) g/dl Albumin (3.4-5.0) g/dl Globulin gm/dL Albumin/Globulin Ratio (1-2) Blood Type AB NEGATIVE Gel Antibody Screen Negative Meds: Medications Generic Name Dose Route Start Last Admin Trade Name Freq PRN Reason Stop Dose Admin Sodium Chloride 1,000 mls @ 75 mls/hr 06/25/17 16:45 06/25/17 18:32 Normal Saline IV 125 mls/hr ASDIRECTED SHREYA Administration Discontinued Medications Generic Name Dose Route Start Last Admin Trade Name Freq PRN Reason Stop Dose Admin Hydromorphone HCl 0.25 mg 06/25/17 16:31 06/25/17 18:32 Dilaudid IVPUSH 06/25/17 16:32 0.25 mg ONETIME ONE Administration Hydromorphone HCl 0.5 mg 06/25/17 19:37 06/25/17 19:46 Dilaudid IVPUSH 06/25/17 19:38 0.5 mg ONETIME ONE Administration Lorazepam 0.5 mg 06/25/17 19:51 06/25/17 20:16 Ativan IVPUSH 06/25/17 19:52 0.5 mg ONETIME ONE Administration Ondansetron HCl 4 mg 06/25/17 16:31 06/25/17 18:32 Zofran IVPUSH 06/25/17 16:32 4 mg ONETIME ONE Administration - Re-Assessments/Exams Free Text/Narrative Re-Assessment/Exam: IV established with normal saline 125 mL per hour, Dilaudid 0.25 mg IVP, and Zofran 4 mg IVP. Initial labs and studies include CBC, chem 14, coag studies, type and screen, UA , x-ray of the right hip, and x-ray of the right knee. Patient placed on nothing by mouth status. 06/25/17 17:20 Preliminary results of the x-ray of the right hip and right knee. Right hip x-ray: Complete hip replacement present appears to be in anatomical position with no acute bony abnormalities present. Final interpretation is pending. Right knee x-ray: Total right knee replacement with distal fracture of the femur moderately displaced with hardware present. 06/25/17 17:[address] Segura. Per OR staff. He will review x-ray and be over to the E.D. in 1/2 hr. 06/25/17 17:39 Ayleen with OR called back. Dr. Segura requests CT of the femur. He will be over once CT completed. 06/25/17 18:36 Dr. Segura has evaluated the patient and spoken to Dr. Ackerman rehabilitation physician Hospitalists. No available beds at this point. Will arrange for admission and transport to [place]. Dr. Segura suggested knee immobilizer placed to the right leg. 06/25/17 19:18 Called [facility] and spoke with Dr. Alfredo Vigil rehabilitation physician Orthopedic Surgeon. He has accepted the patient. Patient will be direct admit. Ambulance has been notified for transport. Dilaudid 0.25 IVP ordered for pain prior to brace placement. Fluids decreased to 75mls/hr. 1933 Vital signs BP 151/63, heart rate 70, SPO2 94%. 06/25/17 19:53 Will order ativan 0.5mg IVP. Patient is feeling anxious with placement of knee immobilizer. Departure - Departure Time of Disposition: 20:10 Disposition: DC/Tfer to [facility] 02 Condition: Fair Clinical Impression: Femur fracture, right Qualifiers: Encounter type: initial encounter Femur location: unspecified portion of femur Fracture type: closed Fracture morphology: unspecified fracture morphology Qualified Code(s): S72.91XA - Unspecified fracture of right femur, initial encounter for closed fracture - Discharge Information Forms: ED Department Discharge - My Orders Last 24 Hours: My Active Orders 06/25/17 16:30 Peripheral IV Care [RC] . DIRECTED UA W/MICROSCOPIC [URIN] Stat 06/25/17 16:31 Hip Min 2V or 3V Rt [CR] Stat Knee 1V or 2V Rt [CR] Stat 06/25/17 16:45 Sodium Chloride 0.9% [Normal Saline] 1,000 ml IV ASDIRECTED 06/25/17 17:36 Femur wo Cont Rt [CT] Stat 06/25/17 19:29 DME for Discharge [COMM] Stat 06/25/17 Breakfast NPO Now [Nothing per Oral Now Diet] [DIET] - Assessment/Plan Last 24 Hours: My Active Orders 06/25/17 16:30 Peripheral IV Care [RC] . DIRECTED UA W/MICROSCOPIC [URIN] Stat 06/25/17 16:31 Hip Min 2V or 3V Rt [CR] Stat Knee 1V or 2V Rt [CR] Stat 06/25/17 16:45 Sodium Chloride 0.9% [Normal Saline] 1,000 ml IV ASDIRECTED 06/25/17 17:36 Femur wo Cont Rt [CT] Stat 06/25/17 19:29 DME for Discharge [COMM] Stat 06/25/17 Breakfast NPO Now [Nothing per Oral Now Diet] [DIET]
[2017-06-25] MEDS ORDERED: Sodium Chloride 0.9% 1,000 ML IV SCH (16:45)
[2017-06-25] MEDS ORDERED: LORazepam 2 MG/ML MDV IVPUSH ONE (19:51)
--- NOTE | 2017-06-26 06:57 | CR ---
Right knee: AP and lateral views of the right knee were obtained. Fracture is identified within the distal femur which extends into knee prosthesis. Fracture is displaced by about one half shaft width. Knee prosthesis is seen which appears aligned. No additional bony abnormality is seen other than osteopenia. Impression: 1. Distal femur fracture extending into knee prosthesis. 2. Other incidental findings. Diagnostic code #3
--- NOTE | 2017-06-26 06:57 | CR ---
Right hip: AP and lateral views of the right hip were obtained. Comparison: Prior right hip study of 03/03/13. Right hip prosthesis is seen. Components are aligned. Fracture is partially visualized within the distal femur with approximately half shaft width displacement. Bony structures are osteopenic. Vascular calcification is noted. Impression: 1. Displaced distal right femur fracture. 2. Other incidental findings as noted above. Diagnostic code #3
--- NOTE | 2017-06-26 07:41 | CT ---
CT femur Technique: Multiple axial sections through the femur were obtained. Reconstructed coronal and sagittal images were obtained. Findings: Artifact noted because of knee prosthesis and right hip prosthesis. There is a fracture being seen to extend into the knee prosthesis with displacement of 2.4 cm. No additional fracture is definitely appreciated on this exam. Incidental vascular calcification is noted. Impression: 1. Displaced distal femur fracture extending into right knee prosthesis with displacement. 2. Other incidental findings. Diagnostic code #5 MTDD
== END 2017-06-25 20:40 ==
LOC: JD.ED 16:03
DX: S72.401A Unspecified fracture of lower end of right femur, initial encounter for closed fracture (principal); E78.00 Pure hypercholesterolemia, unspecified; I10 Essential (primary) hypertension; E11.9 Type 2 diabetes mellitus without complications; Z88.1 Allergy status to other antibiotic agents; Z88.8 Allergy status to other drugs, medicaments and biological substances; Z88.2 Allergy status to sulfonamides; Z79.899 Other long term (current) drug therapy; Z79.84 Long term (current) use of oral hypoglycemic drugs; Z96.651 Presence of right artificial knee joint; W19.XXXA Unspecified fall, initial encounter
CPT/HCPCS: 36415; 73502; 73560; 73700; 80053; 83036; 85025; 85610; 85730; 86850; 86900; 86901; 96361; 96374; 96375; 96376; 99285; J1170; J2060; J2405; J7040; 99284

== ENCOUNTER 2017-07-07 15:03 | Emergency (ER) | payer MEDICARE, BC ==
[2017-07-07 15:15] VITALS: BP 143/57
--- NOTE | 2017-07-07 15:54 | EDM.PDOC ---
ED HPI GENERAL MEDICAL PROBLEM - General Chief Complaint: Wound Recheck Stated Complaint: [facility] Time Seen by Provider: 07/07/17 15:15 Source of Information: Reports: Patient History Limitations: Reports: No Limitations - History of Present Illness INITIAL COMMENTS - FREE TEXT/NARRATIVE: Patient is a 82-year-old female who presents to the ED from [facility] with concerns of drainage coming from surgical incision site of the right upper leg. Per fdc staff patient saturated 3 dressings throughout the course the day. Local provider was contacted with instructions to come to the ED for further evaluation. It was also reported patient had pain to the right upper leg. Upon admission to the ED patient states the pain is well-controlled. There has been no recent fall. Patient denies any fever/chills, nausea/vomiting , or any additional complaints. Patient underwent open reduction and fixation of a distal femur fracture that occurred 06/25/2017. Surgery took place the following day in [place] at [facility] by Dr. Alfredo Vigil. Patient was discharged to [facility]. Patient is on no anticoagulants. She is taking aspirin 325mg daily. In addition she's receiving scheduled narcotics hydrocodone 10-325 mg. Right Hip Pain Score (Numeric/FACES): 6 - Related Data Allergies Allergy/AdvReac Type Severity Reaction Status Date / Time amoxicillin AdvReac Nausea and Verified 07/07/17 15:09 Vomiting amoxicillin trihydrate AdvReac Nausea and Verified 07/07/17 15:09 [From Augmentin] Vomiting ciprofloxacin AdvReac Nausea and Verified 07/07/17 15:09 Vomiting potassium clavulanate AdvReac Nausea and Verified 07/07/17 15:09 [From Augmentin] Vomiting Sulfa (Sulfonamide AdvReac Nausea and Verified 07/07/17 15:09 Antibiotics) Vomiting Home Meds: Home Meds Docusate Sodium [Colace] 200 mg PO BID 09/12/14 [History] traMADol [Ultram] 50 mg PO Q6H 04/29/15 [History] Cholecalciferol (Vitamin D3) [Vitamin D3] 1,000 unit PO DAILY 08/10/15 [History] Simvastatin 20 mg PO DAILY 08/10/15 [History] Valsartan [Diovan] 320 mg PO DAILY 08/10/15 [History] Vit C/Vit E Ac/Lut/Mineral 1 [Prosight with Lutein] 1 tab PO DAILY 08/10/15 [ History] amLODIPine Besylate [Amlodipine Besylate] 5 mg PO DAILY 08/10/15 [History] Aspirin 81 mg PO DAILY 10/19/15 [History] Levothyroxine [Synthroid] 0 mcg PO DAILY 10/19/15 [History] Dicyclomine HCl [Bentyl] 20 mg PO Q6HR 10/20/15 [History] Albuterol/Ipratropium [DuoNeb 3.0-0.5 MG/3 ML] 3 ml NEB QIDRT #1 box 01/03/17 [ Rx] metFORMIN [Glucophage] 500 mg PO BIDMEALS #60 tablet 01/03/17 [Rx] Furosemide [Lasix] 10 mg PO DAILY 01/09/17 [History] Omeprazole 40 mg PO DAILY 01/09/17 [History] Sucralfate [Carafate] 1 gm PO QIDACANDBED 01/09/17 [History] Metoprolol Succinate [Toprol XL] 25 mg PO BID #0 01/15/17 [Rx] Acetaminophen 650 mg PO Q4H PRN 03/20/17 [History] Alum Hydroxide/Mag Hydroxide [Mag-Al Susp] 30 ml PO ASDIRECTED PRN 03/20/17 [ History] LORazepam [Ativan] 0.5 mg PO BEDTIME 03/20/17 [History] Sertraline [Zoloft] 50 mg PO DAILY 03/20/17 [History] Phenazopyridine [Urinary Pain Relief] 95 mg PO TID #40 tablet 03/24/17 [Rx] Potassium Chloride 40 meq PO BID #30 cup 03/24/17 [Rx] Saccharomyces Boulardii [Florastor] 250 mg PO BID #60 cap 03/24/17 [Rx] Estrogens, Conjugated [Premarin Vaginal Crm] 1 applic TOP DAILY 04/07/17 [ History] Past Medical History HEENT History: Reports: None Cardiovascular History: Reports: High Cholesterol, Hypertension Respiratory History: Reports: PE Gastrointestinal History: Reports: Colon Polyp, Diverticulosis, GERD, Hemorrhoids Other Gastrointestinal History: gastric ulcer, abdominal pain, lapartomy Genitourinary History: Reports: Urinary Incontinence Other Genitourinary History: cystitis; botos injections in 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 bladder 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: Musculoskeletal History: Reports: Arthritis Psychiatric History: Reports: Anxiety, Depression Endocrine/Metabolic History: Reports: Diabetes, Type II, Hypothyroidism, Obesity /BMI 30+ Hematologic History: Reports: Anemia Dermatologic History: Reports: Seborrheic Dermatitis - Infectious Disease History Infectious Disease History: Reports: Rheumatic Fever - Past Surgical History HEENT Surgical History: Reports: Cataract Surgery, Tonsillectomy GI Surgical History: Reports: Appendectomy, Cholecystectomy, Lysis of Adhesions , Adriane Fundoplication Female Surgical History: Reports: Hysterectomy, Salpingo-Oophorectomy Musculoskeletal Surgical History: Reports: Hip Replacement, Knee Replacement Social & Family History - Family History Family Medical History: Noncontributory Cardiac: Reports: ID Other Cardiac Family History: Mother OBGYN: Reports: Endocrine/Metabolic: Reports: Diabetes, type II Oncologic: Reports: Colon - Tobacco Use Smoking Status *Q: Never Smoker Second Hand Smoke Exposure: No - Caffeine Use Caffeine Use: Reports: Coffee, Soda, Tea Other Caffeine Use: coffee in the morning - Alcohol Use Days Per Week of Alcohol Use: 0 Number of Drinks Per Day: 0 Total Drinks Per Week: 0 - Recreational Drug Use Recreational Drug Use: No Drug Use in Last 12 Months: No - Living Situation & Occupation Living situation: Reports: , with Spouse Occupation: Retired ED ROS GENERAL - Review of Systems Review Of Systems: ROS reveals no pertinent complaints other than HPI. ED EXAM, SKIN/RASH Exam: See Below Exam Limited By: No Limitations General Appearance: Alert, WD/WN, No Apparent Distress Ears: Hearing Grossly Normal Nose: Normal Inspection Throat/Mouth: Normal Voice, No Airway Compromise Neck: Normal Inspection, Supple Respiratory/Chest: No Respiratory Distress, Lungs Clear, Normal Breath Sounds, No Accessory Muscle Use Cardiovascular: Normal Peripheral Pulses, Regular Rate, Rhythm Peripheral Pulses: 2+: Posterior Tibial (L), Posterior Tibial (R), 3+: Radial (L ), Radial (R) Extremities: Other (On examination of the surgical wound to the right lateral thigh. Dressing in place mildly saturated with serosanguineous drainage. Evgeny intact. No active bleeding or drainage present. Faint redness to the incision border secondary to staple reaction. Bruising noted to the proximal edge of the incision site. Minimal pain with palpation. No drainage expressed with gentle palpation. No sensory/motor deficits distally. No concerning findings at this time.) Neurological: Alert, Oriented, CN II-XII Intact, No Motor/Sensory Deficits Psychiatric: Normal Affect, Normal Mood Skin: Warm Course - Vital Signs Last Recorded V/S: Last Vital Signs Temp 97.3 F 07/07/17 15:10 Pulse 69 07/07/17 15:10 Resp 20 07/07/17 15:10 BP 143/57 H 07/07/17 15:10 Pulse Ox 99 07/07/17 15:10 - Re-Assessments/Exams Free Text/Narrative Re-Assessment/Exam: On examination of surgical wound evgeny in place. Mild redness along the incision site secondary to staple reaction. No active bleeding present. No significant redness indicating infection or purulent drainage present. Bruising noted to the proximal edge of the surgical incision. Dressing is in place and mildly saturated with serosanguineous fluid. Dressing replaced by nursing staff. No intervention required at this time. Pain is well controlled per patient. Will discharge back to fdc with [facility]. I did speak with [facility] Nursing Staff Currently on-call at the [facility] managing patients care. Discussed discharge plan with him. Departure - Departure Time of Disposition: 15:47 Disposition: Home, Self-Care 01 Condition: Fair Clinical Impression: Encounter for post surgical wound check - Discharge Information Instructions: Incision and Drainage, Care After, How to Change Your Dressing, [id number], Stitches, Evgeny, or Adhesive Wound Closure, [id number] Referrals: Neal Miller MD [Primary Care Provider] - Forms: ED Department Discharge Additional Instructions: As discussed surgical incision is intact. No active bleeding present. Minimal redness along the incision site secondary to staple reaction. No concerns for infection. Bruising noted to the proximal border of the incision may be as of result of the surgery or with frequent movement using munira lift. Pain was well controlled while in the ED. Will have you change dressings if it becomes saturated. Continue all medications as prescribed. If the patient develops worsening pain, increased redness around surgical incision with purulent drainage, fever, or active bleeding from incision site please return back to ED. Otherwise follow-up with orthopedic surgeon as scheduled. You may contact the orthopedic surgeon for any further questions as well.
== END 2017-07-07 16:05 | disposition home or self-care (01) ==
LOC: SUPCPDRO 15:03 → JD.ED 15:03
DX: M96.840 Postprocedural hematoma of a musculoskeletal structure following a musculoskeletal system procedure (principal); E78.00 Pure hypercholesterolemia, unspecified; I10 Essential (primary) hypertension; E11.9 Type 2 diabetes mellitus without complications; Z79.82 Long term (current) use of aspirin; Z88.1 Allergy status to other antibiotic agents; Z88.2 Allergy status to sulfonamides; Z79.899 Other long term (current) drug therapy; Z79.84 Long term (current) use of oral hypoglycemic drugs; Z98.890 Other specified postprocedural states
CPT/HCPCS: 99282; 99284

== ENCOUNTER 2017-07-25 12:16 | Emergency (ER) | payer MEDICARE, BC ==
[2017-07-25 12:24] VITALS: BP 140/78
--- NOTE | 2017-07-25 13:59 | EDM.PDOC ---
ED HPI GENERAL MEDICAL PROBLEM - General Chief Complaint: Cardiovascular Problem Stated Complaint: [facility] Time Seen by Provider: 07/25/17 12:25 Source of Information: Reports: Patient, Care Home Records History Limitations: Reports: No Limitations - History of Present Illness INITIAL COMMENTS - FREE TEXT/NARRATIVE: The patient was sent to the ER for left leg edema. She fractured her right femur June 25 and [facility] She was there for a few days and then went to the fdc in [place]. She has been doing good there. The nurse noticed she had more edema in her left leg. She has no pain but there is more edema. She has no chest pain or shortness of breath. She has no history of DVT or PE. Onset: Gradual Duration: Day(s): Improves with: Reports: None Worsens with: Reports: None Associated Symptoms: Reports: No Other Symptoms - Related Data Allergies Allergy/AdvReac Type Severity Reaction Status Date / Time amoxicillin AdvReac Nausea and Verified 07/07/17 15:09 Vomiting amoxicillin trihydrate AdvReac Nausea and Verified 07/07/17 15:09 [From Augmentin] Vomiting ciprofloxacin AdvReac Nausea and Verified 07/07/17 15:09 Vomiting potassium clavulanate AdvReac Nausea and Verified 07/07/17 15:09 [From Augmentin] Vomiting Sulfa (Sulfonamide AdvReac Nausea and Verified 07/07/17 15:09 Antibiotics) Vomiting Home Meds: Home Meds Docusate Sodium [Colace] 200 mg PO BID 09/12/14 [History] Cholecalciferol (Vitamin D3) [Vitamin D3] 1,000 unit PO DAILY 08/10/15 [History] Simvastatin 20 mg PO DAILY 08/10/15 [History] amLODIPine Besylate [Amlodipine Besylate] 5 mg PO DAILY 08/10/15 [History] Aspirin 325 mg PO DAILY 10/19/15 [History] Levothyroxine [Synthroid] 100 mcg PO DAILY 10/19/15 [History] Albuterol/Ipratropium [DuoNeb 3.0-0.5 MG/3 ML] 3 ml NEB QIDRT #1 box 01/03/17 [ Rx] metFORMIN [Glucophage] 500 mg PO BIDMEALS #60 tablet 01/03/17 [Rx] Furosemide [Lasix] 10 mg PO DAILY 01/09/17 [History] Omeprazole 40 mg PO DAILY 01/09/17 [History] Sucralfate [Carafate] 1 gm PO QIDACANDBED 01/09/17 [History] Metoprolol Succinate [Toprol XL] 25 mg PO BID #0 01/15/17 [Rx] Sertraline [Zoloft] 50 mg PO DAILY 03/20/17 [History] Potassium Chloride 40 meq PO BID #30 cup 03/24/17 [Rx] Saccharomyces Boulardii [Florastor] 250 mg PO BID #60 cap 03/24/17 [Rx] Alum Hydrox/Mag Hydrox/Simeth [Maalox Advanced] 30 ml PO ASDIRECTED PRN [History] Dicyclomine [Bentyl] 20 mg PO ASDIRECTED PRN 07/25/17 [History] Eimeron 100 mg PO TID 07/25/17 [History] Hydrocodone/Acetaminophen [[place] 10-325 Tablet] 10 - 325 mg PO Q6H PRN 07/25/17 [History] Linezolid [Zyvox] 600 mg PO BID 07/25/17 [History] Loperamide HCl [Imodium A-D] 2 mg PO ASDIRECTED PRN 07/25/17 [History] Lutein/Minerals/Vit A,C & E [Ocuvite] 1 tab PO DAILY 07/25/17 [History] Metoprolol Succinate 25 mg PO BID 07/25/17 [History] Mirtazapine 10 mg PO BEDTIME 07/25/17 [History] Sertraline [Zoloft] 50 mg PO DAILY 07/25/17 [History] Valsartan 320 mg PO DAILY 07/25/17 [History] traZODone 200 mg PO DAILY 07/25/17 [History] Past Medical History HEENT History: Reports: None Cardiovascular History: Reports: High Cholesterol, Hypertension Respiratory History: Reports: PE Gastrointestinal History: Reports: Colon Polyp, Diverticulosis, GERD, Hemorrhoids Other Gastrointestinal History: gastric ulcer, abdominal pain, lapartomy Genitourinary History: Reports: Urinary Incontinence Other Genitourinary History: cystitis; 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 injections 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: Musculoskeletal History: Reports: Arthritis Psychiatric History: Reports: Anxiety, Depression Endocrine/Metabolic History: Reports: Diabetes, Type II, Hypothyroidism, Obesity /BMI 30+ Hematologic History: Reports: Anemia Dermatologic History: Reports: Seborrheic Dermatitis - Infectious Disease History Infectious Disease History: Reports: Rheumatic Fever - Past Surgical History HEENT Surgical History: Reports: Cataract Surgery, Tonsillectomy GI Surgical History: Reports: Appendectomy, Cholecystectomy, Lysis of Adhesions , Adriane Fundoplication Female Surgical History: Reports: Hysterectomy, Salpingo-Oophorectomy Musculoskeletal Surgical History: Reports: Hip Replacement, Knee Replacement Social & Family History - Family History Family Medical History: Noncontributory Cardiac: Reports: PA Other Cardiac Family History: Mother OBGYN: Reports: Endocrine/Metabolic: Reports: Diabetes, type II Oncologic: Reports: Colon - Tobacco Use Smoking Status *Q: Never Smoker Second Hand Smoke Exposure: No - Caffeine Use Caffeine Use: Reports: Coffee, Tea, Other Other Caffeine Use: hot chocolate - Alcohol Use Days Per Week of Alcohol Use: 0 Number of Drinks Per Day: 0 Total Drinks Per Week: 0 - Recreational Drug Use Recreational Drug Use: No Drug Use in Last 12 Months: No - Living Situation & Occupation Living situation: Reports: , with Spouse Occupation: Retired ED ROS GENERAL - Review of Systems Review Of Systems: See Below Constitutional: Reports: No Symptoms HEENT: Reports: No Symptoms Respiratory: Reports: No Symptoms Cardiovascular: Reports: No Symptoms Endocrine: Reports: No Symptoms GI/Abdominal: Reports: No Symptoms : Reports: No Symptoms Musculoskeletal: Reports: Other (Edema left leg) ED EXAM, GENERAL - Physical Exam Exam: See Below Exam Limited By: No Limitations General Appearance: Alert, No Apparent Distress Ears: Normal External Exam Nose: Normal Inspection Head: Atraumatic, Normocephalic Neck: Normal Inspection Respiratory/Chest: No Respiratory Distress, Lungs Clear, Normal Breath Sounds Cardiovascular: Regular Rate, Rhythm, No Edema, No Murmur GI/Abdominal: Soft, Non-Tender, No Organomegaly, No Mass Back Exam: Normal Inspection Extremities: Other (Mild edema to both legs with more edema to the left leg. Good sensation and pulses distally.) Course - Vital Signs Last Recorded V/S: Last Vital Signs Temp 97.6 F 07/25/17 12:23 Pulse 66 07/25/17 12:23 Resp 20 07/25/17 12:23 BP 140/78 07/25/17 12:23 Pulse Ox 99 07/25/17 12:23 - Orders/Labs/Meds Orders: Active Orders 24 hr Category Date Time Status VL Duplex Lwr Ext Veins Ltd Lt [US] Stat Exams 07/25/17 12:39 Taken - Re-Assessments/Exams Free Text/Narrative Re-Assessment/Exam: 07/25/17 14:00 I ordered an US of her left leg. 07/25/17 14:04 The US showed no DVT. I will discharge her home. Departure - Departure Time of Disposition: 14:05 Disposition: Home, Self-Care 01 Condition: Good Clinical Impression: Edema of both legs Referrals: Germain Schaeffer MD [Primary Care Provider] - 1 Week Forms: ED Department Discharge Additional Instructions: Continue with your medication as prescribed. Please return if you are worse. - My Orders Last 24 Hours: My Active Orders 07/25/17 12:39 VL Duplex Lwr Ext Veins Ltd Lt [US] Stat - Assessment/Plan Last 24 Hours: My Active Orders 07/25/17 12:39 VL Duplex Lwr Ext Veins Ltd Lt [US] Stat
--- NOTE | 2017-07-25 14:05 | US ---
Left lower extremity deep venous ultrasound: Duplex and color flow imaging was obtained of the left common femoral, superficial femoral, greater saphenous, popliteal, posterior tibial and peroneal veins. Right common femoral vein was also evaluated. Normal phasic flow and augmentation is seen. Compression was less than optimal within the mid superficial femoral vein and peroneal veins as they were not well seen. Subcutaneous edema identified within the left lower extremity. Impression: 1. Subcutaneous edema. No evidence of deep venous thrombosis is seen within the left lower extremity or within the right common femoral vein. Diagnostic code #2
== END 2017-07-25 15:30 | disposition home or self-care (01) ==
LOC: SUPCPDRO 12:16 → JD.ED 12:16
DX: R60.0 Localized edema (principal); I10 Essential (primary) hypertension; E78.00 Pure hypercholesterolemia, unspecified; K21.9 Gastro-esophageal reflux disease without esophagitis; F32.9 Major depressive disorder, single episode, unspecified; E11.9 Type 2 diabetes mellitus without complications; E03.9 Hypothyroidism, unspecified; Z79.82 Long term (current) use of aspirin; Z79.84 Long term (current) use of oral hypoglycemic drugs; Z79.899 Other long term (current) drug therapy; Z88.1 Allergy status to other antibiotic agents; Z88.2 Allergy status to sulfonamides
CPT/HCPCS: 93971-26-LT; 93971-LT; 99283; 99285-25

== ENCOUNTER 2019-08-15 13:23 | Inpatient (IN) | payer MEDICARE, BC ==
--- NOTE | 2019-08-15 14:00 | CT ---
Head CT Technique: Multiple axial sections through the brain were obtained. Intravenous contrast was not utilized. Comparison: Previous head CT study of 01/09/17. Findings: Ventricles along with basal cisterns and sulci over convexities are mildly prominent. Several old lacunar infarcts are noted within the basal ganglia. Minimal diminished density is noted within portions of the periventricular white matter compatible with small vessel ischemic demyelination change. No other abnormal parenchymal densities are seen. No evidence of intracranial hemorrhage. No midline shift or mass effect is seen. Bone window settings were reviewed. No acute calvarial abnormality is seen. Visualized paranasal sinuses show nothing acute. Visualized mastoid sinuses show nothing acute. Impression: 1. Senescent change as noted above. 2. No appreciable change from prior head CT study is seen. No acute intracranial abnormality is identified. Diagnostic code #2 Study was dictated in [place] Standard Time
--- NOTE | 2019-08-15 14:00 | CR ---
Chest: Portable view of the chest was obtained. Comparison: Prior chest x-ray of 01/21/19. Nodular density is noted within the right lung base which is an interval change prior study. Interstitial changes are seen throughout both lungs which appears stable. Mitral annulus calcification is seen. Tortuous thoracic aorta is noted. Heart is slightly enlarged. Bony structures are grossly intact. Impression: 1. Nodular density within the right lung base. This finding measures about 2.0 cm and is not seen on prior exam. This could represent nodular area of pneumonia or pulmonary contusion but follow-up chest x-ray is recommended in one month to make sure this does not persist. 2. Lung markings diffusely increased which appear to be chronic. 3. Other findings as noted above which are also felt to be stable. Diagnostic code #3 Study was dictated in [place] Standard Time
[2019-08-15] MEDS ORDERED: Cefepime 2 GM in Premix Bag 1 BAG IV ONE (15:20)
[2019-08-15] MEDS: Sodium Chloride 0.9% 1,000 ML IV SCH ×2 (15:46→21:25)
--- NOTE | 2019-08-15 16:13 | EDM.PDOC ---
ED HPI GENERAL MEDICAL PROBLEM - General Chief Complaint: Neuro Symptoms/Deficits Stated Complaint: [facility] Time Seen by Provider: 08/15/19 13:23 - History of Present Illness INITIAL COMMENTS - FREE TEXT/NARRATIVE: 84-year-old female brought into the emergency room with progressive weakness and confusion. Apparently the patient fell about a week ago and hit her head. Since that time she has had progressive weakness and confusion. She is also been coughing a little bit more than normal. The patient is also coughing little bit more than normal. She thinks she wants to cough some up but does not have a strong enough cough to get it up. [facility] at a [facility]. The patient denies any other pain at this time. - Related Data Allergies Allergy/AdvReac Type Severity Reaction Status Date / Time amoxicillin AdvReac Nausea and Verified 08/15/19 14:21 Vomiting amoxicillin trihydrate AdvReac Nausea and Verified 08/15/19 14:21 [From Augmentin] Vomiting ciprofloxacin AdvReac Nausea and Verified 08/15/19 14:21 Vomiting potassium clavulanate AdvReac Nausea and Verified 08/15/19 14:21 [From Augmentin] Vomiting Sulfa (Sulfonamide AdvReac Nausea and Verified 08/15/19 14:21 Antibiotics) Vomiting Home Meds: Home Meds Levothyroxine [Synthroid] 100 mcg PO DAILY 10/19/15 [History] Furosemide [Lasix] 40 mg PO DAILY 01/09/17 [History] Omeprazole 20 mg PO DAILY 01/09/17 [History] Hydrocodone/Acetaminophen [[place] 10-325 Tablet] 5 - 325 mg PO Q12H PRN 07/25/17 [History] Loperamide HCl [Imodium A-D] 2 - 4 mg PO ASDIRECTED PRN 07/25/17 [History] Metoprolol Succinate 25 mg PO DAILY 07/25/17 [History] Mirtazapine 7.5 mg PO BEDTIME 07/25/17 [History] Sertraline [Zoloft] 75 mg PO BEDTIME 07/25/17 [History] traZODone 150 mg PO BEDTIME 07/25/17 [History] Acetaminophen 650 mg PO Q4H PRN 01/18/19 [History] Acetaminophen [Tylenol] 650 mg PO BEDTIME 01/18/19 [History] Albuterol/Ipratropium [DuoNeb 3.0-0.5 MG/3 ML] 3 ml NEB ONCALL PRN 01/18/19 [ History] Doxazosin Mesylate [Cardura] 2 mg PO BEDTIME 01/18/19 [History] Elmiron 100 mg PO TIDMEALS 01/18/19 [History] Gabapentin [Neurontin] 600 mg PO DAILY 01/18/19 [History] Lactobacillus Acidophilus [Acidophilus] 2 cap PO BID 01/18/19 [History] Losartan [Cozaar] 50 mg PO DAILY 01/18/19 [History] Sennosides [Senna] 8.6 mg PO BID 01/18/19 [History] Vit C/E/Zn/Coppr/Lutein/Zeaxan [Preservision Areds 2 Softgel] 1 cap PO DAILY 03/01 [History] amLODIPine [Norvasc] 7.5 mg PO DAILY 01/18/19 [History] cloNIDine HCl [Catapres] 0.2 mg PO BEDTIME 01/18/19 [History] cloNIDine [Catapres] 0.1 mg PO QAM 01/18/19 [History] polyethylene glycoL 3350 [MiraLAX] 17 gm PO DAILY 01/18/19 [History] Allopurinol [Zyloprim] 100 mg PO DAILY 08/15/19 [History] Bacitracin [Bacitracin Oint] 1 applic TOP BID 08/15/19 [History] Calcium Carbonate [Tums] 500 mg PO Q6H PRN 08/15/19 [History] Alcova Starch/Kaolin/Zinc Oxide [Gold Cr Medicated Baby Powd] 1 applic TOP BID 08/15/19 [History] Ferrous Sulfate 325 mg PO DAILY 08/15/19 [History] Oxybutynin Chloride 5 mg PO DAILY 08/15/19 [History] Sodium Chloride [Saline Nasal [place]] 2 spray WILFRED QID 08/15/19 [History] Suppository Container, Empty [Suppository Box] 1 supp RECTAL DAILY PRN 08/15/19 [History] hydrALAZINE [Apresoline] 10 mg PO TID 08/15/19 [History] Past Medical History HEENT History: Reports: None, Macular Degeneration Cardiovascular History: Reports: Heart Failure, High Cholesterol, Hypertension Other Cardiovascular History: Athrosclerotic heart disease Respiratory History: Reports: COPD, PE Gastrointestinal History: Reports: Colon Polyp, Diverticulosis, Gastritis, GERD , Hemorrhoids, Irritable Bowel Syndrome Other Gastrointestinal History: gastric ulcer, abdominal pain, lapartomy Genitourinary History: Reports: Chronic Renal Insuffiency, Urinary Incontinence , UTI, Recurrent Other Genitourinary History: cystitis; botos injections in the bladder [employer] History: Reports: Other [employer]OR History: Atrophic vaginitis Musculoskeletal History: Reports: Arthritis, Other (See Below) Other Musculoskeletal History: sciatica- right side Neurological History: Reports: Other (See Below) Other Neuro History: Sciatica Psychiatric History: Reports: Anxiety, Dementia, Depression Endocrine/Metabolic History: Reports: Diabetes, Type II, Hypothyroidism, Obesity /BMI 30+ Hematologic History: Reports: Anemia Dermatologic History: Reports: Seborrheic Dermatitis Other Dermatologic History: Candidas of skin and nails - Infectious Disease History Infectious Disease History: Reports: Rheumatic Fever - Past Surgical History HEENT Surgical History: Reports: Cataract Surgery, Tonsillectomy GI Surgical History: Reports: Appendectomy, Cholecystectomy, Lysis of Adhesions , Adriane Fundoplication Female Surgical History: Reports: Hysterectomy, Salpingo-Oophorectomy Musculoskeletal Surgical History: Reports: Hip Replacement, Knee Replacement Social & Family History - Family History Family Medical History: Noncontributory Cardiac: Reports: [place] Other Cardiac Family History: Mother OBGYN: Reports: Endocrine/Metabolic: Reports: Diabetes, type II Oncologic: Reports: Colon - Tobacco Use Smoking Status *Q: Never Smoker Second Hand Smoke Exposure: No - Caffeine Use Caffeine Use: Reports: None Other Caffeine Use: hot chocolate - Recreational Drug Use Recreational Drug Use: No - Living Situation & Occupation Living situation: Reports: , with Spouse Occupation: Retired ED ROS GENERAL - Review of Systems Review Of Systems: See Below Constitutional: Reports: Malaise, Weakness, Fatigue. Denies: No Symptoms HEENT: Reports: No Symptoms Respiratory: Reports: Shortness of Breath, Cough. Denies: Wheezing, Sputum, Hemoptysis Cardiovascular: Reports: No Symptoms GI/Abdominal: Reports: No Symptoms, Other (Abdominal discomfort but this is chronic and not really bothering her at this time) : Reports: No Symptoms Musculoskeletal: Reports: No Symptoms Neurological: Reports: Confusion, Headache Psychiatric: Reports: No Symptoms ED EXAM, GENERAL - Physical Exam Exam: See Below Exam Limited By: No Limitations General Appearance: Alert, No Apparent Distress, Other (He is on supplemental oxygen a little higher than she normally gets at the [facility]) Eye Exam: Bilateral Eye: Normal Inspection Ears: Normal External Exam, Normal Canal, Hearing Grossly Normal, Normal TMs Nose: Normal Inspection, Normal Mucosa, No Blood Throat/Mouth: Normal Inspection, Normal Lips, Normal Teeth, Normal Gums, Normal Oropharynx, Normal Voice, No Airway Compromise Neck: Normal Inspection, Supple, Non-Tender, Full Range of Motion. No: Lymphadenopathy (L), Lymphadenopathy (R) Respiratory/Chest: Crackles (She has bibasilar crackles worse on the right compared to the left). No: No Respiratory Distress, No Accessory Muscle Use, Decreased Breath Sounds, Rhonchi, Wheezing Cardiovascular: Normal Peripheral Pulses, Regular Rate, Rhythm, No Edema, Systolic Murmur (3/6 murmur heard along the left sternal border better but seems to radiate. Also heard in the right upper sternal border) GI/Abdominal: Normal Bowel Sounds, Soft, Non-Tender Back Exam: Normal Inspection. 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 and muscle testing in the upper extremities she has pain that limits checking the lower extremities) Neurological: Alert, Normal Cognition Skin Exam: Warm, Dry, Intact Lymphatic: No Adenopathy Course - Vital Signs Last Recorded V/S: Last Vital Signs Temp 36.6 C 08/15/19 13:25 Pulse 67 08/15/19 13:25 Resp 16 08/15/19 13:25 BP 110/63 08/15/19 13:25 Pulse Ox 85 L 08/15/19 13:25 - Orders/Labs/Meds Orders: Active Orders 24 hr Category Date Time Status Insert Choudhury Catheter [Insert Urinary Catheter] [OM.PC] Care 08/15/19 14:30 Ordered Q24H Urinary Catheter Assessment [RC] ASDIRECTED Care 08/15/19 14:23 Active CULTURE BLOOD [BC] Stat Lab 08/15/19 15:52 Received CULTURE BLOOD [BC] Stat Lab 08/15/19 16:00 Received Pharmacy to Dose - Vancomycin Med 08/15/19 15:20 Pending 1 dose .XX ONETIME ONE Sodium Chloride 0.9% [Normal Saline] 1,000 ml Med 08/15/19 15:15 Active IV ASDIRECTED Blood Culture x2 Reflex Set [OM.PC] Stat Oth 08/15/19 15:04 Ordered Medication Orders Sodium Chloride (Normal Saline) 1,000 mls @ 100 mls/hr IV ASDIRECTED SHREYA Last Admin: 08/15/19 15:46 Dose: 100 mls/hr Vancomycin HCl (Pharmacy To Dose - Vancomycin) 1 dose .XX ONETIME ONE Stop: 08/15/19 15:21 Labs: Laboratory Tests 08/15/19 08/15/19 08/15/19 Range/Units 13:21 13:21 13:21 WBC 10.23 H (3.98-10.04) K/mm3 RBC 3.85 L (3.98-5.22) M/mm3 Hgb 10.6 L (11.2-15.7) gm/dl Hct 34.4 (34.1-44.9) % MCV 89.4 D (79.4-94.8) fl MCH 27.5 (25.6-32.2) pg MCHC 30.8 L (32.2-35.5) g/dl RDW Std Deviation 52.6 H (36.4-46.3) fL Plt Count 185 (182-369) K/mm3 MPV 11.4 (9.4-12.3) fl Neut % (Auto) 82.3 H (34.0-71.1) % Lymph % (Auto) 5.6 L (19.3-51.7) % Ross % (Auto) 10.7 (4.7-12.5) % Eos % (Auto) 0.4 L (0.7-5.8) Baso % (Auto) 0.2 (0.1-1.2) % Neut # (Auto) 8.43 H (1.56-6.13) K/mm3 Lymph # (Auto) 0.57 L (1.18-3.74) K/mm3 Ross # (Auto) 1.09 H (0.24-0.36) K/mm3 Eos # (Auto) 0.04 (0.04-0.36) K/mm3 Baso # (Auto) 0.02 (0.01-0.08) K/mm3 Manual Slide Review Abnormal smear Sodium 130 L (136-145) mEq/L Potassium 4.5 (3.5-5.1) mEq/L Chloride 92 L (98-107) mEq/L Carbon Dioxide 30 (21-32) mEq/L Anion Gap 12.5 (5-15) BUN 89 H D (7-18) mg/dL Creatinine 3.5 H D (0.55-1.02) mg/dL Est Cr Clr Drug Dosing 8.29 mL/min Estimated GFR (MDRD) 12 (>60) mL/min BUN/Creatinine Ratio 25.4 H (14-18) Glucose 170 H (83-115) mg/dL Lactic Acid (0.4-2.0) mmol/L Calcium 9.5 (8.5-10.1) mg/dL Total Bilirubin 0.9 (0.2-1.0) mg/dL AST 22 (15-37) U/L ALT 15 (14-59) U/L Alkaline Phosphatase 202 H (46-116) U/L Troponin I < 0.017 (0.00-0.056) ng/mL NT-Pro-B Natriuret Pep 83300 H (0-450) pg/mL Total Protein 7.5 (6.4-8.2) g/dl Albumin 2.9 L (3.4-5.0) g/dl Globulin 4.6 gm/dL Albumin/Globulin Ratio 0.6 L (1-2) Urine Color (Yellow) Urine Appearance (Clear) Urine pH (5.0-8.0) Ur Specific [place] (1.005-1.030) Urine Protein (Negative) Urine Glucose (UA) (Negative) Urine Ketones (Negative) Urine Occult Blood (Negative) Urine Nitrite (Negative) Urine Bilirubin (Negative) Urine Urobilinogen (0.2-1.0) Ur Leukocyte Esterase (Negative) 08/15/19 08/15/19 Range/Units 14:06 15:52 WBC (3.98-10.04) K/mm3 RBC (3.98-5.22) M/mm3 Hgb (11.2-15.7) gm/dl Hct (34.1-44.9) % MCV (79.4-94.8) fl MCH (25.6-32.2) pg MCHC (32.2-35.5) g/dl RDW Std Deviation (36.4-46.3) fL Plt Count (182-369) K/mm3 MPV (9.4-12.3) fl Neut % (Auto) (34.0-71.1) % Lymph % (Auto) (19.3-51.7) % Ross % (Auto) (4.7-12.5) % Eos % (Auto) (0.7-5.8) Baso % (Auto) (0.1-1.2) % Neut # (Auto) (1.56-6.13) K/mm3 Lymph # (Auto) (1.18-3.74) K/mm3 Ross # (Auto) (0.24-0.36) K/mm3 Eos # (Auto) (0.04-0.36) K/mm3 Baso # (Auto) (0.01-0.08) K/mm3 Manual Slide Review Sodium (136-145) mEq/L Potassium (3.5-5.1) mEq/L Chloride (98-107) mEq/L Carbon Dioxide (21-32) mEq/L Anion Gap (5-15) BUN (7-18) mg/dL Creatinine (0.55-1.02) mg/dL Est Cr Clr Drug Dosing mL/min Estimated GFR (MDRD) (>60) mL/min BUN/Creatinine Ratio (14-18) Glucose (83-115) mg/dL Lactic Acid 1.4 (0.4-2.0) mmol/L Calcium (8.5-10.1) mg/dL Total Bilirubin (0.2-1.0) mg/dL AST (15-37) U/L ALT (14-59) U/L Alkaline Phosphatase (46-116) U/L Troponin I (0.00-0.056) ng/mL NT-Pro-B Natriuret Pep (0-450) pg/mL Total Protein (6.4-8.2) g/dl Albumin (3.4-5.0) g/dl Globulin gm/dL Albumin/Globulin Ratio (1-2) Urine Color Yellow (Yellow) Urine Appearance Clear (Clear) Urine pH 5.5 (5.0-8.0) Ur Specific [place] 1.020 (1.005-1.030) Urine Protein Negative (Negative) Urine Glucose (UA) Negative (Negative) Urine Ketones Negative (Negative) Urine Occult Blood Negative (Negative) Urine Nitrite Negative (Negative) Urine Bilirubin Negative (Negative) Urine Urobilinogen 0.2 (0.2-1.0) Ur Leukocyte Esterase Negative (Negative) Meds: Medications Generic Name Dose Route Start Last Admin Trade Name Freq PRN Reason Stop Dose Admin Sodium Chloride 1,000 mls @ 100 mls/hr 08/15/19 15:15 08/15/19 15:46 Normal Saline IV 100 mls/hr ASDIRECTED SHREYA Administration Vancomycin HCl 1 dose 08/15/19 15:20 Pharmacy To Dose - Vancomycin .XX 08/15/19 15:21 ONETIME ONE Discontinued Medications Generic Name Dose Route Start Last Admin Trade Name Freq PRN Reason Stop Dose Admin Cefepime HCl 2 gm/ Premix 50 mls @ 100 mls/hr 08/15/19 15:20 08/15/19 16:04 IV 08/15/19 15:49 100 mls/hr ONETIME ONE Administration Vancomycin HCl 1 gm/ Sodium 250 mls @ 250 mls/hr 08/15/19 16:00 08/15/19 16: 45 Chloride IV 08/15/19 16:59 250 mls/hr ONETIME ONE Administration - Re-Assessments/Exams Free Text/Narrative Re-Assessment/Exam: 08/15/19 17:35 X-ray examination shows a right lower lobe density along the base that is new not seen on prior x-rays the could represent pneumonia. Once a screen is unremarkable white count is not elevated her BUN and creatinine have gone up to 81 and 3.5. Her proBNP is 29,531 lactic acid 1.4. She is probably intravascularly dehydrated but overall still fluid overloaded. The patient with her suspected pneumonia has had blood cultures obtained and has been started on cefepime and vancomycin. Patient will be admitted. Dr. De Luna, our hospitalist will admit. Departure - Departure Time of Disposition: 17:39 Disposition: Admitted As Inpatient 64 Clinical Impression: Pneumonia, Head injury, Renal insufficiency - Discharge Information Referrals: Mihaela Pittman MD [Primary Care Provider] - Forms: ED Department Discharge Sepsis Event Note - Evaluation Sepsis Screening Result: No Definite Risk - Focused Exam Vital Signs: Vital Signs Temp Pulse Resp BP Pulse Ox 08/15/19 13:25 36.6 C 67 16 110/63 85 L Date Exam was Performed: 08/15/19 Time Exam was Performed: 17:35 - My Orders Last 24 Hours: My Active Orders 08/15/19 14:23 Urinary Catheter Assessment [RC] ASDIRECTED 08/15/19 14:30 Insert Choudhury Catheter [Insert Urinary Catheter] [OM.PC] Q24H 08/15/19 15:04 Blood Culture x2 Reflex Set [OM.PC] Stat 08/15/19 15:15 Sodium Chloride 0.9% [Normal Saline] 1,000 ml IV ASDIRECTED 08/15/19 15:20 Pharmacy to Dose - Vancomycin 1 dose .XX ONETIME ONE 08/15/19 15:52 CULTURE BLOOD [BC] Stat 08/15/19 16:00 CULTURE BLOOD [BC] Stat - Assessment/Plan Last 24 Hours: My Active Orders 08/15/19 14:23 Urinary Catheter Assessment [RC] ASDIRECTED 08/15/19 14:30 Insert Choudhury Catheter [Insert Urinary Catheter] [OM.PC] Q24H 08/15/19 15:04 Blood Culture x2 Reflex Set [OM.PC] Stat 08/15/19 15:15 Sodium Chloride 0.9% [Normal Saline] 1,000 ml IV ASDIRECTED 08/15/19 15:20 Pharmacy to Dose - Vancomycin 1 dose .XX ONETIME ONE 08/15/19 15:52 CULTURE BLOOD [BC] Stat 08/15/19 16:00 CULTURE BLOOD [BC] Stat
[2019-08-15] MEDS ORDERED: Ondansetron 4 MG/2 ML SDV IV PRN (19:03)
[2019-08-15] MEDS ORDERED: Albuterol/Ipratropium 3.0-0.5 MG/3 ML Neb Soln NEB PRN (19:08)
--- NOTE | 2019-08-15 19:18 | PCM.HP.2 ---
H&P History of Present Illness - General Date of Service: 08/15/19 Admit Problem/Dx: Admission Diagnosis/Problem Admission Diagnosis/Problem Pneumonia - History of Present Illness Initial Comments - Free Text/Narative: 84-year-old female with history of COPD on 2 L O2 at the alf, congestive heart failure, chronic renal insufficiency, hypertension presents to the emergency room with progressive confusion and weakness over the last week. Patient is a poor historian with underlying dementia who resides at [facility]. Patient's daughters are available but give limited history. Other than complaints of shaking for a week and a cough that is worsening she has no other complaints. In the emergency room she was found to have a right lower lobe pneumonia. WBC 10.23, Hemoglobin 10.6, platelet count 185, sodium 130, BUN 89, creatinine 3.5, estimated GFR 12, troponin less than 0.017, proBNP 29,531 - Related Data Allergies/Adverse Reactions: Allergies Allergy/AdvReac Type Severity Reaction Status Date / Time amoxicillin AdvReac Nausea and Verified 08/15/19 19:49 Vomiting amoxicillin trihydrate AdvReac Nausea and Verified 08/15/19 19:49 [From Augmentin] Vomiting ciprofloxacin AdvReac Nausea and Verified 08/15/19 19:49 Vomiting potassium clavulanate AdvReac Nausea and Verified 08/15/19 19:49 [From Augmentin] Vomiting Sulfa (Sulfonamide AdvReac Nausea and Verified 08/15/19 19:49 Antibiotics) Vomiting Home Medications: Home Meds Levothyroxine [Synthroid] 100 mcg PO DAILY 10/19/15 [History] Furosemide [Lasix] 40 mg PO DAILY 01/09/17 [History] Omeprazole 20 mg PO DAILY 01/09/17 [History] Loperamide HCl [Imodium A-D] 2 - 4 mg PO ASDIRECTED PRN 07/25/17 [History] Metoprolol Succinate 25 mg PO DAILY 07/25/17 [History] Mirtazapine 7.5 mg PO BEDTIME 07/25/17 [History] Sertraline [Zoloft] 75 mg PO BEDTIME 07/25/17 [History] traZODone 150 mg PO BEDTIME 07/25/17 [History] Acetaminophen 650 mg PO Q4H PRN 01/18/19 [History] Acetaminophen [Tylenol] 650 mg PO BEDTIME 01/18/19 [History] Albuterol/Ipratropium [DuoNeb 3.0-0.5 MG/3 ML] 3 ml NEB ONCALL PRN 01/18/19 [ History] Doxazosin Mesylate [Cardura] 2 mg PO BEDTIME 01/18/19 [History] Elmiron 100 mg PO TIDMEALS 01/18/19 [History] Gabapentin [Neurontin] 600 mg PO BEDTIME 01/18/19 [History] Lactobacillus Acidophilus [Acidophilus] 2 cap PO BID 01/18/19 [History] Losartan [Cozaar] 50 mg PO DAILY 01/18/19 [History] Sennosides [Senna] 8.6 mg PO BID 01/18/19 [History] Vit C/E/Zn/Coppr/Lutein/Zeaxan [Preservision Areds 2 Softgel] 1 cap PO DAILY 03/01 [History] amLODIPine [Norvasc] 7.5 mg PO DAILY 01/18/19 [History] cloNIDine HCl [Catapres] 0.2 mg PO BEDTIME 01/18/19 [History] cloNIDine [Catapres] 0.1 mg PO QAM 01/18/19 [History] polyethylene glycoL 3350 [MiraLAX] 17 gm PO DAILY 01/18/19 [History] Allopurinol [Zyloprim] 100 mg PO DAILY 08/15/19 [History] Bacitracin [Bacitracin Oint] 1 applic TOP BID 08/15/19 [History] Calcium Carbonate [Tums] 500 mg PO Q6H PRN 08/15/19 [History] [place] Starch/Kaolin/Zinc Oxide [Gold Cr Medicated Baby Powd] 1 applic TOP BID 08/15/19 [History] Ferrous Sulfate 325 mg PO DAILY 08/15/19 [History] Hydrocodone/Acetaminophen [Hydrocodon-Acetaminophen 5-325] 5 - 325 mg PO BID 09/02 [History] Oxybutynin Chloride 5 mg PO DAILY 08/15/19 [History] Sodium Chloride [Saline Nasal [place]] 2 spray WILFRED QID 08/15/19 [History] Suppository Container, Empty [Suppository Box] 1 supp RECTAL DAILY PRN 08/15/19 [History] hydrALAZINE [Apresoline] 20 mg PO TID 08/15/19 [History] Past Medical History HEENT History: Reports: Macular Degeneration Cardiovascular History: Reports: Heart Failure, High Cholesterol, Hypertension Other Cardiovascular History: Athrosclerotic heart disease Respiratory History: Reports: COPD, PE Gastrointestinal History: Reports: Colon Polyp, Diverticulosis, Gastritis, GERD , Hemorrhoids, Irritable Bowel Syndrome Other Gastrointestinal History: gastric ulcer, abdominal pain, lapartomy Genitourinary History: Reports: Chronic Renal Insuffiency, Urinary Incontinence , UTI, Recurrent Other Genitourinary History: cystitis; botos injections in the bladder [employer] History: Reports: Other OB/BYN History: Atrophic vaginitis Musculoskeletal History: Reports: Arthritis, Other (See Below) Other Musculoskeletal History: sciatica- right side Neurological History: Reports: Other (See Below) Other Neuro History: Sciatica Psychiatric History: Reports: Anxiety, Dementia, Depression Endocrine/Metabolic History: Reports: Diabetes, Type II, Hypothyroidism, Obesity /BMI 30+ Hematologic History: Reports: Anemia Dermatologic History: Reports: Seborrheic Dermatitis Other Dermatologic History: Candidas of skin and nails - Infectious Disease History Infectious Disease History: Reports: Rheumatic Fever - Past Surgical History HEENT Surgical History: Reports: Cataract Surgery, Tonsillectomy Cardiovascular Surgical History: Reports: None GI Surgical History: Reports: Appendectomy, Cholecystectomy, Lysis of Adhesions , Adriane Fundoplication Female Surgical History: Reports: Hysterectomy, Salpingo-Oophorectomy Neurological Surgical History: Reports: None Musculoskeletal Surgical History: Reports: Hip Replacement, Knee Replacement Dermatological Surgical History: Reports: None Social & Family History - Family History Family Medical History: Noncontributory Cardiac: Reports: ME, Syncope Other Cardiac Family History: Mother OBGYN: Reports: Endocrine/Metabolic: Reports: Diabetes, type II Oncologic: Reports: Colon - Tobacco Use Smoking Status *Q: Never Smoker Second Hand Smoke Exposure: No - Caffeine Use Caffeine Use: Reports: None Other Caffeine Use: hot chocolate - Recreational Drug Use Recreational Drug Use: No - Living Situation & Occupation Living situation: Reports: , with Spouse Occupation: Retired H&P Review of Systems - Review of Systems: Review Of Systems: Unable To Obtain Reason Not Obtained: Poor historian secondary to dementia Exam - Exam Exam: See Below - Vital Signs Vital Signs: Last Vital Signs Temp 97.8 F 08/15/19 13:25 Pulse 73 08/15/19 18:48 Resp 18 08/15/19 18:48 BP 123/49 L 08/15/19 18:48 Pulse Ox 95 08/15/19 18:48 Weight: 191 lb 6.4 oz - Exam Quality Assessment: Supplemental Oxygen General: Lethargic HEENT: Conjunctiva Clear. No: Mucosa Moist & [place] (Dry) Neck: Supple Lungs: Rhonchi (Throughout), Wheezing (Throughout). No: Normal Respiratory Effort Cardiovascular: Regular Rate, Regular Rhythm GI/Abdominal Exam: Normal Bowel Sounds, Soft, No Distention, Tender (Diffuse tenderness without guarding or rebound.) Back Exam: Normal Inspection Extremities: Non-Tender, Normal Capillary Refill, Pedal Edema (1+ pitting edema) Skin: Warm, Dry Neurological: Cranial Nerves Intact Neuro Extensive - Mental Status: Oriented x3. No: Normal Cognition, Memory Intact - Patient Data Lab Results Last 24 hrs: Laboratory Results - last 24 hr 08/15/19 08/15/19 08/15/19 Range/Units 13:21 13:21 13:21 WBC 10.23 H (3.98-10.04) K/mm3 RBC 3.85 L (3.98-5.22) M/mm3 Hgb 10.6 L (11.2-15.7) gm/dl Hct 34.4 (34.1-44.9) % MCV 89.4 D (79.4-94.8) fl MCH 27.5 (25.6-32.2) pg MCHC 30.8 L (32.2-35.5) g/dl RDW Std Deviation 52.6 H (36.4-46.3) fL Plt Count 185 (182-369) K/mm3 MPV 11.4 (9.4-12.3) fl Neut % (Auto) 82.3 H (34.0-71.1) % Lymph % (Auto) 5.6 L (19.3-51.7) % [place] % (Auto) 10.7 (4.7-12.5) % Eos % (Auto) 0.4 L (0.7-5.8) Baso % (Auto) 0.2 (0.1-1.2) % Neut # (Auto) 8.43 H (1.56-6.13) K/mm3 Lymph # (Auto) 0.57 L (1.18-3.74) K/mm3 [place] # (Auto) 1.09 H (0.24-0.36) K/mm3 Eos # (Auto) 0.04 (0.04-0.36) K/mm3 Baso # (Auto) 0.02 (0.01-0.08) K/mm3 Manual Slide Review Abnormal smear Sodium 130 L (136-145) mEq/L Potassium 4.5 (3.5-5.1) mEq/L Chloride 92 L (98-107) mEq/L Carbon Dioxide 30 (21-32) mEq/L Anion Gap 12.5 (5-15) BUN 89 H D (7-18) mg/dL Creatinine 3.5 H D (0.55-1.02) mg/dL Est Cr Clr Drug Dosing 8.29 mL/min Estimated GFR (MDRD) 12 (>60) mL/min BUN/Creatinine Ratio 25.4 H (14-18) Glucose 170 H (83-115) mg/dL Lactic Acid (0.4-2.0) mmol/L Calcium 9.5 (8.5-10.1) mg/dL Total Bilirubin 0.9 (0.2-1.0) mg/dL AST 22 (15-37) U/L ALT 15 (14-59) U/L Alkaline Phosphatase 202 H (46-116) U/L Troponin I < 0.017 (0.00-0.056) ng/mL NT-Pro-B Natriuret Pep 54325 H (0-450) pg/mL Total Protein 7.5 (6.4-8.2) g/dl Albumin 2.9 L (3.4-5.0) g/dl Globulin 4.6 gm/dL Albumin/Globulin Ratio 0.6 L (1-2) Urine Color (Yellow) Urine Appearance (Clear) Urine pH (5.0-8.0) Ur Specific [place] (1.005-1.030) Urine Protein (Negative) Urine Glucose (UA) (Negative) Urine Ketones (Negative) Urine Occult Blood (Negative) Urine Nitrite (Negative) Urine Bilirubin (Negative) Urine Urobilinogen (0.2-1.0) Ur Leukocyte Esterase (Negative) 08/15/19 08/15/19 Range/Units 14:06 15:52 WBC (3.98-10.04) K/mm3 RBC (3.98-5.22) M/mm3 Hgb (11.2-15.7) gm/dl Hct (34.1-44.9) % MCV (79.4-94.8) fl MCH (25.6-32.2) pg MCHC (32.2-35.5) g/dl RDW Std Deviation (36.4-46.3) fL Plt Count (182-369) K/mm3 MPV (9.4-12.3) fl Neut % (Auto) (34.0-71.1) % Lymph % (Auto) (19.3-51.7) % [place] % (Auto) (4.7-12.5) % Eos % (Auto) (0.7-5.8) Baso % (Auto) (0.1-1.2) % Neut # (Auto) (1.56-6.13) K/mm3 Lymph # (Auto) (1.18-3.74) K/mm3 [place] # (Auto) (0.24-0.36) K/mm3 Eos # (Auto) (0.04-0.36) K/mm3 Baso # (Auto) (0.01-0.08) K/mm3 Manual Slide Review Sodium (136-145) mEq/L Potassium (3.5-5.1) mEq/L Chloride (98-107) mEq/L Carbon Dioxide (21-32) mEq/L Anion Gap (5-15) BUN (7-18) mg/dL Creatinine (0.55-1.02) mg/dL Est Cr Clr Drug Dosing mL/min Estimated GFR (MDRD) (>60) mL/min BUN/Creatinine Ratio (14-18) Glucose (83-115) mg/dL Lactic Acid 1.4 (0.4-2.0) mmol/L Calcium (8.5-10.1) mg/dL Total Bilirubin (0.2-1.0) mg/dL AST (15-37) U/L ALT (14-59) U/L Alkaline Phosphatase (46-116) U/L Troponin I (0.00-0.056) ng/mL NT-Pro-B Natriuret Pep (0-450) pg/mL Total Protein (6.4-8.2) g/dl Albumin (3.4-5.0) g/dl Globulin gm/dL Albumin/Globulin Ratio (1-2) Urine Color Yellow (Yellow) Urine Appearance Clear (Clear) Urine pH 5.5 (5.0-8.0) Ur Specific [place] 1.020 (1.005-1.030) Urine Protein Negative (Negative) Urine Glucose (UA) Negative (Negative) Urine Ketones Negative (Negative) Urine Occult Blood Negative (Negative) Urine Nitrite Negative (Negative) Urine Bilirubin Negative (Negative) Urine Urobilinogen 0.2 (0.2-1.0) Ur Leukocyte Esterase Negative (Negative) Result Diagrams: 08/15/19 13:21 08/15/19 13:21 [place] Results Last 24 hrs: Microbiology 08/15/19 16:45 Influenza Type A Antigen Screen - Final Nasal, Unspecified NEGATIVE INFLUENZA A VIRUS AG REFERENCE RANGE: NEGATIVE Influenza Type B Antigen Screen - Final NEGATIVE INFLUENZA B VIRUS AG REFERENCE RANGE: NEGATIVE Sepsis Event Note - Evaluation Sepsis Screening Result: No Definite Risk - Focused Exam Vital Signs: Vital Signs Temp Pulse Resp BP Pulse Ox 08/15/19 18:48 73 18 123/49 L 95 08/15/19 13:25 97.8 F 67 16 110/63 85 L Date Exam was Performed: 08/15/19 Time Exam was Performed: 22:21 Problem List Initiated/Reviewed/Updated: Yes Orders Last 24hrs: Active Orders 24 hr Category Date Time Status Patient Status [ADT] Stat ADT 08/15/19 18:02 Active Antiembolic Devices [RC] PER UNIT ROUTINE Care 08/15/19 19:05 Ordered Insert Choudhury Catheter [Insert Urinary Catheter] [OM.PC] Care 08/15/19 14:30 Ordered Q24H Intake and Output Strict [RC] ASDIRECTED Care 08/15/19 19:17 Ordered Oxygen Therapy [RC] PRN Care 08/15/19 19:03 Ordered Up With Assistance [RC] ASDIRECTED Care 08/15/19 19:03 Ordered Urinary Catheter Assessment [RC] ASDIRECTED Care 08/15/19 14:23 Active VTE/DVT Education [RC] PER UNIT ROUTINE Care 08/15/19 19:03 Ordered Vital Signs [RC] Q4H Care 08/15/19 19:03 Ordered PT Evaluation and Treatment [CONS] Routine Cons 08/15/19 19:03 Ordered Heart Healthy Diet [DIET] Diet 08/15/19 Dinner Ordered CBC WITH AUTO DIFF [HEME] AM Lab 08/16/19 05:11 Ordered COMPREHENSIVE METABOLIC PN,CMP [CHEM] AM Lab 08/16/19 05:11 Ordered CULTURE BLOOD [BC] Stat Lab 08/15/19 15:52 Received CULTURE BLOOD [BC] Stat Lab 08/15/19 16:00 Received MAGNESIUM [CHEM] AM Lab 08/16/19 05:11 Ordered Acetaminophen [Tylenol] Med 08/15/19 19:03 Ordered 650 mg PO Q4H PRN Albuterol/Ipratropium [DuoNeb 3.0-0.5 MG/3 ML] Med 08/15/19 19:08 Ordered 3 ml NEB ONCALL PRN Bacitracin [Bacitracin Oint] Med 08/15/19 21:00 Ordered 1 applic TOP BID Cefepime [Maxipime in D5W 1 GM/50 ML] 1 gm Med 08/16/19 16:00 Ordered Premix Bag 1 bag IV Q24H Doxazosin [Cardura] Med 08/15/19 21:00 Ordered 2 mg PO BEDTIME Elmiron Med 08/16/19 07:00 Ordered 100 mg PO TIDMEALS Furosemide [Lasix] Med 08/16/19 09:00 Ordered 40 mg PO DAILY Gabapentin [Neurontin] Med 08/15/19 21:00 Ordered 600 mg PO BEDTIME Levothyroxine [Synthroid] Med 08/16/19 09:00 Ordered 100 mcg PO DAILY Losartan Med 08/16/19 09:00 Ordered 50 mg PO DAILY Metoprolol Succinate [Toprol XL] Med 08/16/19 09:00 Ordered 25 mg PO DAILY Mirtazapine [Remeron] Med 08/15/19 21:00 Ordered 7.5 mg PO BEDTIME Omeprazole [Omeprazole] Med 08/16/19 09:00 Ordered 20 mg PO DAILY Ondansetron [Zofran] Med 08/15/19 19:03 Ordered 4 mg IV Q4H PRN Oxybutynin Med 08/16/19 09:00 Ordered 5 mg PO DAILY Pharmacy to Dose - Vancomycin Med 08/15/19 15:20 Pending 1 dose .XX ONETIME ONE Sennosides [Senna] Med 08/15/19 21:00 Ordered 8.6 mg PO BID Sertraline [Zoloft] Med 08/15/19 21:00 Ordered 75 mg PO BEDTIME Sodium Chloride 0.65% [[place] Nasal [place]] Med 08/15/19 21:00 Ordered 2 spray WILFRED QID Sodium Chloride 0.9% [Normal Saline] 1,000 ml Med 08/15/19 15:15 Active IV ASDIRECTED amLODIPine [Norvasc] Med 08/16/19 09:00 Ordered 7.5 mg PO DAILY cloNIDine HCl [Catapres] Med 08/15/19 21:00 Ordered 0.2 mg PO BEDTIME cloNIDine [Catapres] Med 08/16/19 08:00 Ordered 0.1 mg PO QAM hydrALAZINE [Apresoline] Med 08/15/19 21:00 Ordered 10 mg PO TID polyethylene glycoL 3350 [MiraLAX] Med 08/16/19 09:00 Ordered 17 gm PO DAILY Blood Culture x2 Reflex Set [OM.PC] Stat Oth 08/15/19 15:04 Ordered Sequential Compression Device [OM.PC] Per Unit Routine Oth 08/15/19 19:04 Ordered Resuscitation Status Routine Resus Stat 08/15/19 19:03 Ordered Medication Orders Acetaminophen (Tylenol) 650 mg PO Q4H PRN PRN Reason: Pain (Mild 1-3)/fever Albuterol/Ipratropium (Duoneb 3.0-0.5 Mg/3 Ml) 3 ml NEB ONCALL PRN PRN Reason: Wheezing Amlodipine Besylate (Norvasc) 7.5 mg PO DAILY SHREYA Bacitracin (Bacitracin Oint) gm TOP BID SHREYA Clonidine HCl (Catapres) 0.1 mg PO QAM SHREYA Doxazosin Mesylate (Cardura) 2 mg PO BEDTIME SHREYA Furosemide (Lasix) 40 mg PO DAILY SHREYA Gabapentin (Neurontin) 600 mg PO BEDTIME SHREYA Hydralazine HCl (Apresoline) 10 mg PO TID SHREYA Sodium Chloride (Normal Saline) 1,000 mls @ 100 mls/hr IV ASDIRECTED SHREYA Last Admin: 08/15/19 15:46 Dose: 100 mls/hr Cefepime HCl 1 gm/ Premix 50 mls @ 100 mls/hr IV Q24H SHREYA Levothyroxine Sodium (Synthroid) 100 mcg PO DAILY SHREYA Metoprolol Succinate (Toprol Xl) 25 mg PO DAILY SHREYA Mirtazapine (Remeron) 7.5 mg PO BEDTIME SHREYA Non-Formulary Medication (Clonidine Hcl [Catapres]) 0.2 mg PO BEDTIME SHREYA Non-Formulary Medication (Elmiron) 100 mg PO TIDMEALS SHREYA Non-Formulary Medication (Losartan) 50 mg PO DAILY SHREYA Non-Formulary Medication (Omeprazole [Omeprazole]) 20 mg PO DAILY SHREYA Ondansetron HCl (Zofran) 4 mg IV Q4H PRN PRN Reason: Nausea/Vomiting Oxybutynin Chloride (Oxybutynin) 5 mg PO DAILY SHREYA Polyethylene Glycol (Miralax) 17 gm PO DAILY SHREYA Senna (Senna) 8.6 mg PO BID SHREYA Sertraline HCl (Zoloft) 75 mg PO BEDTIME SHREYA Sodium Chloride ([place] Nasal [place]) ml WILFRED QID SHREYA Vancomycin HCl (Pharmacy To Dose - Vancomycin) 1 dose .XX ONETIME ONE Stop: 08/15/19 15:21 Assessment/Plan Comment:: Assessment * Right lower lobe pneumonia * Chest x-ray confirmed right lower lobe pneumonia * Hemodynamically stable * Requiring 3 L nasal cannula O2. She is on 2 L at home. * Received 2 g of cefepime in the ER and vancomycin pharmacy to dose. * COPD with acute exacerbation * On 2 L at the alf * Acute on chronic kidney failure * BUN 89, creatinine 3.5, estimated GFR 12 * CHF * BNP 29,000, likely worsened secondary to renal failure. When she was here in January it was 21,000 and her kidney function was better. * Hyponatremia * Likely secondary to hypovolemia * Hypertension * Metoprolol, losartan, amlodipine, hydralazine, Lasix, and clonidine at home * Delirium on dementia * Worsened due to acute illness Plan * Admit to medical floor on telemetry * Cautious rehydration * Strict I's and O's * Cefepime * Vancomycin until MRSA screen is negative * Continue home blood pressure medication * Restart Lasix tomorrow if renal function improves * Echocardiogram * DuoNeb every 6 hours * Albuterol every 2 hours as needed * Solu-Medrol 40 mg IV every 8 hours * Mucinex 600 mg every 12 hours * Incentive spirometry and Acapella * FiO2 to keep SPO2 greater than 90%. * Follow CBC, CMP, and magnesium * VTE prophylaxis: Initially with SCDs * CODE STATUS: DNR/DNI * Anticipated length of stay 4 days * Patient has a very poor prognosis secondary to multiple acute on chronic conditions. She was unable to adequately confirm DNR status, but her daughter, who is the POA, confirmed her desires to be DNR/DNI. They understand the severity of their mother's illness and her poor prognosis. - Mortality Measure Prognosis:: Poor
[2019-08-15] MEDS ORDERED: Sodium Chloride 0.9% 500 ML IV ONE (19:21)
[2019-08-15] MEDS ORDERED: Albuterol 0.083% 2.5 MG/3 ML Neb Soln NEB PRN (19:32)
[2019-08-15] MEDS: Albuterol/Ipratropium 3.0-0.5 MG/3 ML Neb Soln NEB SCH (20:39)
[2019-08-15] MEDS: methylPREDNISolone Sodium Succinate 40 MG/1 ML SDV IVPUSH SCH (21:24)
[2019-08-15] MEDS: Sennosides 8.6 MG Tab PO SCH (22:53)
[2019-08-15] MEDS: guaiFENesin 600 MG Tab.ER PO SCH (22:53)
[2019-08-15] MEDS: cloNIDine 0.1 MG Tab PO SCH (22:54)
[2019-08-15] MEDS: Acetaminophen/HYDROcodone 325-5 MG Tab PO SCH (22:54)
[2019-08-15] MEDS: Gabapentin 600 MG Tab PO SCH (22:54)
[2019-08-15] MEDS: Doxazosin 2 MG Tab PO SCH (22:55)
[2019-08-15] MEDS: Mirtazapine 15 MG Tab PO SCH (22:56)
[2019-08-15] MEDS: hydrALAZINE 10 MG Tab PO SCH (22:56)
[2019-08-15] MEDS: Sertraline 50 MG Tab PO SCH (22:57)
[2019-08-15] MEDS: traZODone 50 MG Tab PO SCH (22:57)
[2019-08-15] MEDS: Sodium Chloride 0.65% Nasal Spray 45 ML Bottle NAS SCH (22:59)
[2019-08-15] MEDS: Bacitracin Oint 15 GM Tube TOP SCH (22:59)
[2019-08-16] MEDS: Albuterol/Ipratropium 3.0-0.5 MG/3 ML Neb Soln NEB SCH ×4 (03:09→20:39)
[2019-08-16] MEDS: methylPREDNISolone Sodium Succinate 40 MG/1 ML SDV IVPUSH SCH ×3 (05:14→21:17)
[2019-08-16] MEDS: Levothyroxine 50 MCG Tab PO SCH (05:14)
[2019-08-16] MEDS: Pantoprazole 40 MG Tab.CR PO SCH (06:42)
[2019-08-16] MEDS: Sodium Chloride 0.9% 1,000 ML IV SCH ×2 (06:42→16:32)
[2019-08-16] MEDS ORDERED: ELMIRON 100 MG PO SCH (07:00)
[2019-08-16] MEDS: Polyethylene Glycol 3350 Powder 17 GM Packet PO SCH (08:12)
[2019-08-16] MEDS: amLODIPine 5 MG Tab PO SCH (08:13)
[2019-08-16] MEDS: guaiFENesin 600 MG Tab.ER PO SCH ×2 (08:14→21:13)
[2019-08-16] MEDS: cloNIDine 0.1 MG Tab PO SCH ×2 (08:15→21:14)
[2019-08-16] MEDS: hydrALAZINE 10 MG Tab PO SCH (08:15)
[2019-08-16] MEDS: Metoprolol Succinate 25 MG Tab.ER PO SCH (08:16)
[2019-08-16] MEDS: Furosemide 40 MG Tab PO SCH (08:16)
[2019-08-16] MEDS: Acetaminophen/HYDROcodone 325-5 MG Tab PO SCH (08:17)
[2019-08-16] MEDS: Oxybutynin 5 MG Tab PO SCH (08:17)
[2019-08-16] MEDS: Losartan 25 MG Tab PO SCH (08:17)
[2019-08-16] MEDS: Sennosides 8.6 MG Tab PO SCH ×2 (08:18→21:12)
[2019-08-16] MEDS: Sodium Chloride 0.65% Nasal Spray 45 ML Bottle NAS SCH ×4 (08:19→21:12)
[2019-08-16] MEDS: Bacitracin Oint 15 GM Tube TOP SCH ×2 (08:20→21:14)
--- NOTE | 2019-08-16 11:03 | PCM.PN ---
- General Info Date of Service: 08/16/19 Admission Dx/Problem (Free Text): Admission Diagnosis/Problem Admission Diagnosis/Problem Pneumonia Subjective Update: Carlota is feeling much better. Much more alert. Functional Status: Reports: Pain Controlled - Review of Systems General: Reports: No Symptoms HEENT: Reports: No Symptoms Pulmonary: Reports: No Symptoms Cardiovascular: Reports: No Symptoms Gastrointestinal: Reports: No Symptoms Musculoskeletal: Reports: No Symptoms - Patient Data Vitals - Most Recent: Last Vital Signs Temp 98.4 F 08/16/19 08:10 Pulse 78 08/16/19 08:16 Resp 20 08/16/19 08:10 BP 140/82 08/16/19 08:17 Pulse Ox 91 L 08/16/19 08:29 Weight - Most Recent: 192 lb 14.4 oz I&O - Last 24 Hours: Intake & Output 08/15/19 08/16/19 08/16/19 22:59 06:59 14:59 Intake Total 500 1504 Balance 500 1504 Lab Results Last 24 Hours: Laboratory Results - last 24 hr 08/15/19 08/15/19 08/15/19 Range/Units 13:21 13:21 13:21 WBC 10.23 H (3.98-10.04) K/mm3 RBC 3.85 L (3.98-5.22) M/mm3 Hgb 10.6 L (11.2-15.7) gm/dl Hct 34.4 (34.1-44.9) % MCV 89.4 D (79.4-94.8) fl MCH 27.5 (25.6-32.2) pg MCHC 30.8 L (32.2-35.5) g/dl RDW Std Deviation 52.6 H (36.4-46.3) fL Plt Count 185 (182-369) K/mm3 MPV 11.4 (9.4-12.3) fl Neut % (Auto) 82.3 H (34.0-71.1) % Lymph % (Auto) 5.6 L (19.3-51.7) % Frio % (Auto) 10.7 (4.7-12.5) % Eos % (Auto) 0.4 L (0.7-5.8) Baso % (Auto) 0.2 (0.1-1.2) % Neut # (Auto) 8.43 H (1.56-6.13) K/mm3 Lymph # (Auto) 0.57 L (1.18-3.74) K/mm3 Frio # (Auto) 1.09 H (0.24-0.36) K/mm3 Eos # (Auto) 0.04 (0.04-0.36) K/mm3 Baso # (Auto) 0.02 (0.01-0.08) K/mm3 Manual Slide Review Abnormal smear Sodium 130 L (136-145) mEq/L Potassium 4.5 (3.5-5.1) mEq/L Chloride 92 L (98-107) mEq/L Carbon Dioxide 30 (21-32) mEq/L Anion Gap 12.5 (5-15) BUN 89 H D (7-18) mg/dL Creatinine 3.5 H D (0.55-1.02) mg/dL Est Cr Clr Drug Dosing 8.29 mL/min Estimated GFR (MDRD) 12 (>60) mL/min BUN/Creatinine Ratio 25.4 H (14-18) Glucose 170 H (83-115) mg/dL Lactic Acid (0.4-2.0) mmol/L Calcium 9.5 (8.5-10.1) mg/dL Magnesium (1.8-2.4) mg/dl Total Bilirubin 0.9 (0.2-1.0) mg/dL AST 22 (15-37) U/L ALT 15 (14-59) U/L Alkaline Phosphatase 202 H (46-116) U/L Troponin I < 0.017 (0.00-0.056) ng/mL NT-Pro-B Natriuret Pep 67014 H (0-450) pg/mL Total Protein 7.5 (6.4-8.2) g/dl Albumin 2.9 L (3.4-5.0) g/dl Globulin 4.6 gm/dL Albumin/Globulin Ratio 0.6 L (1-2) Urine Color (Yellow) Urine Appearance (Clear) Urine pH (5.0-8.0) Ur Specific Hooks (1.005-1.030) Urine Protein (Negative) Urine Glucose (UA) (Negative) Urine Ketones (Negative) Urine Occult Blood (Negative) Urine Nitrite (Negative) Urine Bilirubin (Negative) Urine Urobilinogen (0.2-1.0) Ur Leukocyte Esterase (Negative) MRSA (PCR) 08/15/19 08/15/19 08/15/19 Range/Units 14:06 15:52 18:47 WBC (3.98-10.04) K/mm3 RBC (3.98-5.22) M/mm3 Hgb (11.2-15.7) gm/dl Hct (34.1-44.9) % MCV (79.4-94.8) fl MCH (25.6-32.2) pg MCHC (32.2-35.5) g/dl RDW Std Deviation (36.4-46.3) fL Plt Count (182-369) K/mm3 MPV (9.4-12.3) fl Neut % (Auto) (34.0-71.1) % Lymph % (Auto) (19.3-51.7) % Frio % (Auto) (4.7-12.5) % Eos % (Auto) (0.7-5.8) Baso % (Auto) (0.1-1.2) % Neut # (Auto) (1.56-6.13) K/mm3 Lymph # (Auto) (1.18-3.74) K/mm3 Frio # (Auto) (0.24-0.36) K/mm3 Eos # (Auto) (0.04-0.36) K/mm3 Baso # (Auto) (0.01-0.08) K/mm3 Manual Slide Review Sodium (136-145) mEq/L Potassium (3.5-5.1) mEq/L Chloride (98-107) mEq/L Carbon Dioxide (21-32) mEq/L Anion Gap (5-15) BUN (7-18) mg/dL Creatinine (0.55-1.02) mg/dL Est Cr Clr Drug Dosing mL/min Estimated GFR (MDRD) (>60) mL/min BUN/Creatinine Ratio (14-18) Glucose (83-115) mg/dL Lactic Acid 1.4 (0.4-2.0) mmol/L Calcium (8.5-10.1) mg/dL Magnesium (1.8-2.4) mg/dl Total Bilirubin (0.2-1.0) mg/dL AST (15-37) U/L ALT (14-59) U/L Alkaline Phosphatase (46-116) U/L Troponin I (0.00-0.056) ng/mL NT-Pro-B Natriuret Pep (0-450) pg/mL Total Protein (6.4-8.2) g/dl Albumin (3.4-5.0) g/dl Globulin gm/dL Albumin/Globulin Ratio (1-2) Urine Color Yellow (Yellow) Urine Appearance Clear (Clear) Urine pH 5.5 (5.0-8.0) Ur Specific Hooks 1.020 (1.005-1.030) Urine Protein Negative (Negative) Urine Glucose (UA) Negative (Negative) Urine Ketones Negative (Negative) Urine Occult Blood Negative (Negative) Urine Nitrite Negative (Negative) Urine Bilirubin Negative (Negative) Urine Urobilinogen 0.2 (0.2-1.0) Ur Leukocyte Esterase Negative (Negative) MRSA (PCR) Positive H 08/16/19 08/16/19 Range/Units 05:36 05:36 WBC 8.74 (3.98-10.04) K/mm3 RBC 3.68 L (3.98-5.22) M/mm3 Hgb 10.1 L (11.2-15.7) gm/dl Hct 32.9 L (34.1-44.9) % MCV 89.4 (79.4-94.8) fl MCH 27.4 (25.6-32.2) pg MCHC 30.7 L (32.2-35.5) g/dl RDW Std Deviation 52.0 H (36.4-46.3) fL Plt Count 182 (182-369) K/mm3 MPV 10.9 (9.4-12.3) fl Neut % (Auto) 82.5 H (34.0-71.1) % Lymph % (Auto) 5.8 L (19.3-51.7) % Frio % (Auto) 10.3 (4.7-12.5) % Eos % (Auto) 0.6 L (0.7-5.8) Baso % (Auto) 0.2 (0.1-1.2) % Neut # (Auto) 7.21 H (1.56-6.13) K/mm3 Lymph # (Auto) 0.51 L (1.18-3.74) K/mm3 Frio # (Auto) 0.90 H (0.24-0.36) K/mm3 Eos # (Auto) 0.05 (0.04-0.36) K/mm3 Baso # (Auto) 0.02 (0.01-0.08) K/mm3 Manual Slide Review Abnormal smear Sodium 133 L (136-145) mEq/L Potassium 4.0 (3.5-5.1) mEq/L Chloride 96 L (98-107) mEq/L Carbon Dioxide 27 (21-32) mEq/L Anion Gap 14.0 (5-15) BUN 83 H (7-18) mg/dL Creatinine 2.9 H (0.55-1.02) mg/dL Est Cr Clr Drug Dosing 10.00 mL/min Estimated GFR (MDRD) 15 (>60) mL/min BUN/Creatinine Ratio 28.6 H (14-18) Glucose 114 (83-115) mg/dL Lactic Acid (0.4-2.0) mmol/L Calcium 8.7 (8.5-10.1) mg/dL Magnesium 2.3 (1.8-2.4) mg/dl Total Bilirubin 0.9 (0.2-1.0) mg/dL AST 16 (15-37) U/L ALT 14 (14-59) U/L Alkaline Phosphatase 188 H (46-116) U/L Troponin I (0.00-0.056) ng/mL NT-Pro-B Natriuret Pep (0-450) pg/mL Total Protein 6.8 (6.4-8.2) g/dl Albumin 2.6 L (3.4-5.0) g/dl Globulin 4.2 gm/dL Albumin/Globulin Ratio 0.6 L (1-2) Urine Color (Yellow) Urine Appearance (Clear) Urine pH (5.0-8.0) Ur Specific Hooks (1.005-1.030) Urine Protein (Negative) Urine Glucose (UA) (Negative) Urine Ketones (Negative) Urine Occult Blood (Negative) Urine Nitrite (Negative) Urine Bilirubin (Negative) Urine Urobilinogen (0.2-1.0) Ur Leukocyte Esterase (Negative) MRSA (PCR) [place] Results Last 24 Hours: Microbiology 08/15/19 16:00 Anaerobic Blood Culture - Final Blood - Venous - Lab Draw 08/15/19 16:45 Influenza Type A Antigen Screen - Final Nasal, Unspecified NEGATIVE INFLUENZA A VIRUS AG REFERENCE RANGE: NEGATIVE Influenza Type B Antigen Screen - Final NEGATIVE INFLUENZA B VIRUS AG REFERENCE RANGE: NEGATIVE Med Orders - Current: Current Medications Acetaminophen (Tylenol) 650 mg PO Q4H PRN PRN Reason: Pain (Mild 1-3)/fever Hydrocodone Bitart/Acetaminophen ([place] 325-5 Mg) 1 tab PO BID [facility] Last Admin: 08/16/19 08:17 Dose: 1 tab Albuterol (Proventil Neb Soln) 2.5 mg NEB Q2H PRN PRN Reason: Dyspnea Albuterol/Ipratropium (Duoneb 3.0-0.5 Mg/3 Ml) 3 ml NEB ONCALL PRN PRN Reason: Wheezing Albuterol/Ipratropium (Duoneb 3.0-0.5 Mg/3 Ml) 3 ml NEB Q6HRRT [facility] Last Admin: 08/16/19 08:28 Dose: 3 ml Amlodipine Besylate (Norvasc) 7.5 mg PO DAILY [facility] Last Admin: 08/16/19 08:13 Dose: 7.5 mg Bacitracin (Bacitracin Oint) 1 gm TOP BID [facility] Last Admin: 08/16/19 08:20 Dose: 1 applic Clonidine HCl (Catapres) 0.1 mg PO QAM [facility] Last Admin: 08/16/19 08:15 Dose: 0.1 mg Clonidine HCl (Catapres) 0.2 mg PO BEDTIME [facility] Last Admin: 08/15/19 22:54 Dose: 0.2 mg Doxazosin Mesylate (Cardura) 2 mg PO BEDTIME [facility] Last Admin: 08/15/19 22:55 Dose: 2 mg Furosemide (Lasix) 40 mg PO DAILY [facility] Last Admin: 08/16/19 08:16 Dose: 40 mg Gabapentin (Neurontin) 600 mg PO BEDTIME [facility] Last Admin: 08/15/19 22:54 Dose: 600 mg Guaifenesin (Mucinex) 600 mg PO BID [facility] Last Admin: 08/16/19 08:14 Dose: 600 mg Hydralazine HCl (Apresoline) 10 mg PO TID [facility] Last Admin: 08/16/19 08:15 Dose: 10 mg Sodium Chloride (Normal Saline) 1,000 mls @ 100 mls/hr IV ASDIRECTED [facility] Last Admin: 08/16/19 06:42 Dose: 100 mls/hr Cefepime HCl 1 gm/ Premix 50 mls @ 100 mls/hr IV Q24H [facility] Vancomycin HCl 1 gm/Vancomycin HCl 250 mg/ Sodium Chloride 250 mls @ 166.667 mls/hr IV Q48H [facility] Levothyroxine Sodium (Synthroid) 100 mcg PO ACBREAKFAST [facility] Last Admin: 08/16/19 05:14 Dose: 100 mcg Losartan Potassium (Cozaar) 50 mg PO DAILY [facility] Last Admin: 08/16/19 08:17 Dose: 50 mg Methylprednisolone Sodium Succinate (Solu-Medrol) 40 mg IVPUSH Q8H [facility] Last Admin: 08/16/19 05:14 Dose: 40 mg Metoprolol Succinate (Toprol Xl) 25 mg PO DAILY [facility] Last Admin: 08/16/19 08:16 Dose: 25 mg Mirtazapine (Remeron) 7.5 mg PO BEDTIME [facility] Last Admin: 08/15/19 22:56 Dose: 7.5 mg Nystatin (Nystatin Crm) 0 gm TOP QID [facility] Ondansetron HCl (Zofran) 4 mg IV Q4H PRN PRN Reason: Nausea/Vomiting Oxybutynin Chloride (Oxybutynin) 5 mg PO DAILY [facility] Last Admin: 08/16/19 08:17 Dose: 5 mg Pantoprazole Sodium (Protonix) 40 mg PO DAILY@0700 [facility] Last Admin: 08/16/19 06:42 Dose: 40 mg Polyethylene Glycol (Miralax) 17 gm PO DAILY [facility] Last Admin: 08/16/19 08:12 Dose: 17 gm Senna (Senna) 8.6 mg PO BID [facility] Last Admin: 08/16/19 08:18 Dose: 8.6 mg Sertraline HCl (Zoloft) 75 mg PO BEDTIME [facility] Last Admin: 08/15/19 22:57 Dose: 75 mg Sodium Chloride ([place] Nasal [place]) 0 ml WILFRED QID [facility] Last Admin: 08/16/19 08:19 Dose: 1 spray Trazodone HCl (Trazodone) 150 mg PO BEDTIME [facility] Last Admin: 08/15/19 22:57 Dose: 150 mg Discontinued Medications Cefepime HCl 2 gm/ Premix 50 mls @ 100 mls/hr IV ONETIME ONE Stop: 08/15/19 15:49 Last Admin: 08/15/19 16:04 Dose: 100 mls/hr Vancomycin HCl 1 gm/ Sodium (Chloride) 250 mls @ 250 mls/hr IV ONETIME ONE Stop: 08/15/19 16:59 Last Admin: 08/15/19 16:45 Dose: 250 mls/hr Sodium Chloride (Normal Saline) 500 mls @ 500 mls/hr IV .BOLUS ONE Stop: 08/15/19 20:20 Last Admin: 08/15/19 21:22 Dose: Not Given Non-Formulary Medication (Elmiron) 100 mg PO TIDMEALS SHREYA Last Admin: 08/16/19 10:48 Dose: Not Given Vancomycin HCl (Pharmacy To Dose - Vancomycin) 1 dose .XX ONETIME ONE Stop: 08/15/19 15:21 Last Admin: 08/16/19 08:07 Dose: Not Given - Exam Quality Assessment: Supplemental Oxygen General: Alert, Oriented HEENT: Pupils Equal, Mucous Membr. Moist/[place] Neck: Supple Lungs: Rhonchi. No: Normal Respiratory Effort (increased respiratory rate) Cardiovascular: Regular Rate, Regular Rhythm, Murmurs GI/Abdominal Exam: Normal Bowel Sounds, Soft, No Organomegaly, No Distention Extremities: Normal Inspection, Normal Range of Motion, Non-Tender, No Pedal Edema Skin: Warm, Dry, Intact Psy/Mental Status: Alert, Normal Affect, Normal Mood Sepsis Event Note - Evaluation Sepsis Screening Result: No Definite Risk - Focused Exam Vital Signs: Vital Signs Temp Pulse Resp BP Pulse Ox Pulse Ox 08/16/19 08:29 91 L 08/16/19 08:17 140/82 08/16/19 08:16 78 140/82 08/16/19 08:15 140/82 08/16/19 08:13 140/82 08/16/19 08:10 98.4 F 78 20 140/82 97 08/16/19 05:15 98.2 F 71 13 108/53 L 97 08/16/19 03:11 93 L Date Exam was Performed: 08/16/19 Time Exam was Performed: 11:33 - Problem List Review Problem List Initiated/Reviewed/Updated: Yes - My Orders Last 24 Hours: My Active Orders 08/15/19 19:03 Oxygen Therapy [RC] PRN Up With Assistance [RC] ASDIRECTED VTE/DVT Education [RC] BID Vital Signs [RC] Q4HR PT Evaluation and Treatment [CONS] Routine Acetaminophen [Tylenol] 650 mg PO Q4H PRN Ondansetron [Zofran] 4 mg IV Q4H PRN Resuscitation Status Routine 08/15/19 19:04 Sequential Compression Device [OM.PC] Per Unit Routine 08/15/19 19:05 Antiembolic Devices [RC] BID 08/15/19 19:08 Albuterol/Ipratropium [DuoNeb 3.0-0.5 MG/3 ML] 3 ml NEB ONCALL PRN 08/15/19 19:17 Intake and Output Strict [RC] 04,16 08/15/19 19:31 RT Chest Physiotherapy [RC] ASDIRECTED RT Incentive Spirometry [RC] ASDIRECTED 08/15/19 19:32 RT Aerosol Therapy [RC] ASDIRECTED Albuterol [Proventil Neb Soln] 2.5 mg NEB Q2H PRN 08/15/19 20:00 methylPREDNISolone Sod Succ [Solu-MEDROL] 40 mg IVPUSH Q8H 08/15/19 21:00 Acetaminophen/HYDROcodone [[place] 325-5 MG] 1 tab PO BID Albuterol/Ipratropium [DuoNeb 3.0-0.5 MG/3 ML] 3 ml NEB Q6HRRT Bacitracin [Bacitracin Oint] 1 gm TOP BID Doxazosin [Cardura] 2 mg PO BEDTIME Gabapentin [Neurontin] 600 mg PO BEDTIME Mirtazapine [Remeron] 7.5 mg PO BEDTIME Sennosides [Senna] 8.6 mg PO BID Sertraline [Zoloft] 75 mg PO BEDTIME Sodium Chloride 0.65% [[place] Nasal [place]] 0 ml WILFRED QID cloNIDine [Catapres] 0.2 mg PO BEDTIME guaiFENesin [Mucinex] 600 mg PO BID hydrALAZINE [Apresoline] 10 mg PO TID traZODone 150 mg PO BEDTIME 08/15/19 Dinner Heart Healthy Diet [DIET] 08/16/19 06:00 Levothyroxine [Synthroid] 100 mcg PO ACBREAKFAST 08/16/19 07:00 Pantoprazole [ProTONIX] 40 mg PO DAILY@0700 08/16/19 08:00 cloNIDine [Catapres] 0.1 mg PO QAM 08/16/19 09:00 Furosemide [Lasix] 40 mg PO DAILY Losartan [Cozaar] 50 mg PO DAILY Metoprolol Succinate [Toprol XL] 25 mg PO DAILY Oxybutynin 5 mg PO DAILY amLODIPine [Norvasc] 7.5 mg PO DAILY polyethylene glycoL 3350 [MiraLAX] 17 gm PO DAILY 08/16/19 13:00 Nystatin [Nystatin Crm] 0 gm TOP QID 08/16/19 16:00 Cefepime [Maxipime in D5W 1 GM/50 ML] 1 gm Premix Bag 1 bag IV Q24H 08/17/19 16:00 Vancomycin 1 gm Vancomycin 250 mg Sodium Chloride 0.9% [Normal Saline] 250 ml IV Q48H - Plan Plan:: Assessment * Right lower lobe pneumonia * Chest x-ray confirmed right lower lobe pneumonia * Hemodynamically stable * Back to baseline FiO2, 2 L nasal cannula O2. * MRSA screen + * Cefepime and vancomycin pharmacy to dose. * COPD with acute exacerbation - improving * On 2 L at the group home * Acute on chronic kidney failure - improving * BUN 89-->83, creatinine 3.5-->2.9, estimated GFR 12-->15 * CHF * BNP 29,000, likely worsened secondary to renal failure. When she was here in January it was 21,000 and her kidney function was better. * Hyponatremia - improving * Likely secondary to hypovolemia * Hypertension * Metoprolol, losartan, amlodipine, hydralazine, Lasix, and clonidine at home * Hold hydralazine 2/2 lower BP midmorning after home meds given. * Delirium on dementia - improved * Worsened due to acute illness Plan * Admit to medical floor on telemetry * Continue cautious rehydration * Strict I's and O's * Continue Cefepime and Vancomycin * Hold hydralazine * Echocardiogram - pending results * DuoNeb every 6 hours * Albuterol every 2 hours as needed * Solu-Medrol 40 mg IV every 8 hours * Mucinex 600 mg every 12 hours * Incentive spirometry and Acapella * FiO2 to keep SPO2 greater than 90%. * BMP in the morning * VTE prophylaxis: Initially with SCDs 2/2 poor renal function. Consider chemoprophylaxis tomorrow. * CODE STATUS: DNR/DNI * Anticipated length of stay 4 days * Patient has a very poor prognosis secondary to multiple acute on chronic conditions. She was unable to adequately confirm DNR status, but her daughter, who is the POA, confirmed her desires to be DNR/DNI. They understand the severity of their mother's illness and her poor prognosis.
[2019-08-16] MEDS ORDERED: Nystatin Crm 30 GM Tube TOP SCH (13:00)
[2019-08-16] MEDS: Nystatin Topical Powder 15 GM Bottle TOP SCH ×3 (14:01→21:15)
[2019-08-16] MEDS ORDERED: Acetaminophen/HYDROcodone 325-5 MG Tab PO PRN (15:03)
[2019-08-16] MEDS: Cefepime 1 GM in Premix Bag 1 BAG IV SCH (16:24)
[2019-08-16] MEDS: traZODone 50 MG Tab PO SCH (21:12)
[2019-08-16] MEDS: Doxazosin 2 MG Tab PO SCH (21:13)
[2019-08-16] MEDS: Sertraline 50 MG Tab PO SCH (21:13)
[2019-08-16] MEDS: Mirtazapine 15 MG Tab PO SCH (21:14)
[2019-08-16] MEDS: Gabapentin 600 MG Tab PO SCH (21:14)
[2019-08-17] MEDS: Albuterol/Ipratropium 3.0-0.5 MG/3 ML Neb Soln NEB SCH ×4 (02:52→22:25)
[2019-08-17] MEDS: Sodium Chloride 0.9% 1,000 ML IV SCH (03:13)
[2019-08-17] MEDS: methylPREDNISolone Sodium Succinate 40 MG/1 ML SDV IVPUSH SCH ×3 (03:17→19:53)
[2019-08-17] MEDS: Levothyroxine 50 MCG Tab PO SCH (06:19)
[2019-08-17] MEDS: Pantoprazole 40 MG Tab.CR PO SCH (06:19)
[2019-08-17] MEDS: Oxybutynin 5 MG Tab PO SCH (08:00)
[2019-08-17] MEDS: Furosemide 40 MG Tab PO SCH (08:11)
[2019-08-17] MEDS: Sennosides 8.6 MG Tab PO SCH ×2 (08:11→20:33)
[2019-08-17] MEDS: cloNIDine 0.1 MG Tab PO SCH ×2 (08:13→20:31)
[2019-08-17] MEDS: amLODIPine 5 MG Tab PO SCH (08:13)
[2019-08-17] MEDS: guaiFENesin 600 MG Tab.ER PO SCH ×2 (08:15→20:33)
[2019-08-17] MEDS: Metoprolol Succinate 25 MG Tab.ER PO SCH (08:15)
[2019-08-17] MEDS: Losartan 25 MG Tab PO SCH (08:16)
[2019-08-17] MEDS: Polyethylene Glycol 3350 Powder 17 GM Packet PO SCH (08:20)
[2019-08-17] MEDS: Nystatin Topical Powder 15 GM Bottle TOP SCH ×4 (08:22→20:34)
[2019-08-17] MEDS: Sodium Chloride 0.65% Nasal Spray 45 ML Bottle NAS SCH ×4 (08:23→20:34)
--- NOTE | 2019-08-17 11:14 | PCM.PN ---
- General Info Date of Service: 08/17/19 Admission Dx/Problem (Free Text): Admission Diagnosis/Problem Admission Diagnosis/Problem Pneumonia Subjective Update: James is a doing well without any complaints. She is without any fever or chills overnight. She is back to her baseline oxygen. - Review of Systems General: Reports: No Symptoms HEENT: Reports: No Symptoms Pulmonary: Reports: No Symptoms Cardiovascular: Reports: No Symptoms Gastrointestinal: Reports: No Symptoms Musculoskeletal: Reports: No Symptoms - Patient Data Vitals - Most Recent: Last Vital Signs Temp 97.3 F 08/17/19 07:51 Pulse 69 08/17/19 08:15 Resp 16 08/17/19 07:51 BP 125/79 08/17/19 08:16 Pulse Ox 92 L 08/17/19 08:10 Weight - Most Recent: 200 lb 9.6 oz I&O - Last 24 Hours: Intake & Output 08/16/19 08/17/19 08/17/19 22:59 06:59 14:59 Intake Total 490 0 Output Total 0 76 Balance 490 2049 - Lab Results Last 24 Hours: Laboratory Results - last 24 hr 08/17/19 Range/Units 08:20 Sodium 137 (136-145) mEq/L Potassium 4.1 (3.5-5.1) mEq/L Chloride 100 (98-107) mEq/L Carbon Dioxide 24 (21-32) mEq/L Anion Gap 17.1 H (5-15) BUN 77 H (7-18) mg/dL Creatinine 2.4 H (0.55-1.02) mg/dL Est Cr Clr Drug Dosing 12.09 mL/min Estimated GFR (MDRD) 19 (>60) mL/min BUN/Creatinine Ratio 32.1 H (14-18) Glucose 257 H (83-115) mg/dL Calcium 9.0 (8.5-10.1) mg/dL [place] Results Last 24 Hours: Microbiology 08/15/19 16:00 Aerobic Blood Culture - Preliminary Blood - Venous - Lab Draw NO GROWTH AFTER 1 DAY Anaerobic Blood Culture - Final 08/15/19 15:52 Aerobic Blood Culture - Preliminary Blood - Venous NO GROWTH AFTER 1 DAY Anaerobic Blood Culture - Preliminary NO GROWTH AFTER 1 DAY Med Orders - Current: Current Medications Acetaminophen (Tylenol) 650 mg PO Q4H PRN PRN Reason: Pain (Mild 1-3)/fever Hydrocodone Bitart/Acetaminophen ([place] 325-5 Mg) 1 tab PO BID PRN PRN Reason: Pain Albuterol (Proventil Neb Soln) 2.5 mg NEB Q2H PRN PRN Reason: Dyspnea Albuterol/Ipratropium (Duoneb 3.0-0.5 Mg/3 Ml) 3 ml NEB ONCALL PRN PRN Reason: Wheezing Albuterol/Ipratropium (Duoneb 3.0-0.5 Mg/3 Ml) 3 ml NEB Q6HRRT [facility] Last Admin: 08/17/19 08:10 Dose: 3 ml Amlodipine Besylate (Norvasc) 7.5 mg PO DAILY [facility] Last Admin: 08/17/19 08:13 Dose: 7.5 mg Clonidine HCl (Catapres) 0.1 mg PO QAM [facility] Last Admin: 08/17/19 08:13 Dose: 0.1 mg Clonidine HCl (Catapres) 0.2 mg PO BEDTIME [facility] Last Admin: 08/16/19 21:14 Dose: 0.2 mg Doxazosin Mesylate (Cardura) 2 mg PO BEDTIME [facility] Last Admin: 08/16/19 21:13 Dose: 2 mg Enoxaparin Sodium (Lovenox) 30 mg SUBCUT Q24H [facility] Furosemide (Lasix) 40 mg PO DAILY [facility] Last Admin: 08/17/19 08:11 Dose: 40 mg Furosemide (Lasix) 20 mg IVPUSH ONETIME ONE Stop: 08/17/19 14:01 Gabapentin (Neurontin) 600 mg PO BEDTIME [facility] Last Admin: 08/16/19 21:14 Dose: 600 mg Guaifenesin (Mucinex) 600 mg PO BID [facility] Last Admin: 08/17/19 08:15 Dose: 600 mg Cefepime HCl 1 gm/ Premix 50 mls @ 100 mls/hr IV Q24H [facility] Last Admin: 08/16/19 16:24 Dose: 100 mls/hr Vancomycin HCl 1 gm/Vancomycin HCl 250 mg/ Sodium Chloride 250 mls @ 166.667 mls/hr IV Q48H [facility] Levothyroxine Sodium (Synthroid) 100 mcg PO ACBREAKFAST [facility] Last Admin: 08/17/19 06:19 Dose: 100 mcg Losartan Potassium (Cozaar) 50 mg PO DAILY [facility] Last Admin: 08/17/19 08:16 Dose: 50 mg Methylprednisolone Sodium Succinate (Solu-Medrol) 40 mg IVPUSH Q8H [facility] Last Admin: 08/17/19 03:17 Dose: 40 mg Metoprolol Succinate (Toprol Xl) 25 mg PO DAILY [facility] Last Admin: 08/17/19 08:15 Dose: 25 mg Mirtazapine (Remeron) 7.5 mg PO BEDTIME [facility] Last Admin: 08/16/19 21:14 Dose: 7.5 mg Nystatin (Nystop) 0 gm TOP QID [facility] Last Admin: 08/17/19 08:22 Dose: 1 applic Ondansetron HCl (Zofran) 4 mg IV Q4H PRN PRN Reason: Nausea/Vomiting Oxybutynin Chloride (Oxybutynin) 5 mg PO DAILY [facility] Last Admin: 08/16/19 08:17 Dose: 5 mg Pantoprazole Sodium (Protonix) 40 mg PO DAILY@0700 [facility] Last Admin: 08/17/19 06:19 Dose: 40 mg Polyethylene Glycol (Miralax) 17 gm PO DAILY [facility] Last Admin: 08/17/19 08:20 Dose: 17 gm Senna (Senna) 8.6 mg PO BID [facility] Last Admin: 08/17/19 08:11 Dose: 8.6 mg Sertraline HCl (Zoloft) 75 mg PO BEDTIME [facility] Last Admin: 08/16/19 21:13 Dose: 75 mg Sodium Chloride ([place] Nasal [place]) 0 ml WILFRED QID [facility] Last Admin: 08/17/19 08:23 Dose: 1 spray Trazodone HCl (Trazodone) 150 mg PO BEDTIME [facility] Last Admin: 08/16/19 21:12 Dose: 150 mg Discontinued Medications Hydrocodone Bitart/Acetaminophen ([place] 325-5 Mg) 1 tab PO BID [facility] Last Admin: 08/16/19 08:17 Dose: 1 tab Bacitracin (Bacitracin Oint) 1 gm TOP BID [facility] Last Admin: 08/16/19 21:14 Dose: 1 applic Hydralazine HCl (Apresoline) 10 mg PO TID [facility] Last Admin: 08/16/19 08:15 Dose: 10 mg Sodium Chloride (Normal Saline) 1,000 mls @ 100 mls/hr IV ASDIRECTED [facility] Last Admin: 08/17/19 03:13 Dose: 100 mls/hr Cefepime HCl 2 gm/ Premix 50 mls @ 100 mls/hr IV ONETIME ONE Stop: 08/15/19 15:49 Last Admin: 08/15/19 16:04 Dose: 100 mls/hr Vancomycin HCl 1 gm/ Sodium (Chloride) 250 mls @ 250 mls/hr IV ONETIME ONE Stop: 08/15/19 16:59 Last Admin: 08/15/19 16:45 Dose: 250 mls/hr Sodium Chloride (Normal Saline) 500 mls @ 500 mls/hr IV .BOLUS ONE Stop: 08/15/19 20:20 Last Admin: 08/15/19 21:22 Dose: Not Given Non-Formulary Medication (Elmiron) 100 mg PO TIDMEALS [facility] Last Admin: 08/16/19 10:48 Dose: Not Given Nystatin (Nystatin Crm) 0 gm TOP QID [facility] Vancomycin HCl (Pharmacy To Dose - Vancomycin) 1 dose .XX ONETIME ONE Stop: 08/15/19 15:21 Last Admin: 08/16/19 08:07 Dose: Not Given - Exam Quality Assessment: Supplemental Oxygen General: Alert, Oriented HEENT: Pupils Equal, Mucous Membr. Moist/[place] Neck: Supple Lungs: Normal Respiratory Effort, Crackles (And basis) Cardiovascular: Irregular Rhythm (Rate controlled) GI/Abdominal Exam: Normal Bowel Sounds, Soft, Non-Tender, No Distention Extremities: Normal Inspection, Normal Range of Motion, Non-Tender, Pedal Edema (2+ pitting edema) Skin: Warm, Dry, Intact Neurological: No New Focal Deficit Psy/Mental Status: Alert, Normal Affect, Normal Mood Sepsis Event Note - Evaluation Sepsis Screening Result: No Definite Risk - Focused Exam Vital Signs: Vital Signs Temp Pulse Resp BP Pulse Ox Pulse Ox 08/17/19 08:16 125/79 08/17/19 08:15 69 125/79 08/17/19 08:13 125/79 08/17/19 08:10 92 L 08/17/19 07:51 97.3 F 69 16 125/79 96 08/17/19 03:52 97.5 F 77 18 103/82 96 08/17/19 02:53 97 08/17/19 01:15 97.0 F 71 20 107/74 97 Date Exam was Performed: 08/17/19 Time Exam was Performed: 11:09 - Problem List Review Problem List Initiated/Reviewed/Updated: Yes - My Orders Last 24 Hours: My Active Orders 08/16/19 13:00 Nystatin [Nystop] 0 gm TOP QID 08/16/19 15:03 Acetaminophen/HYDROcodone [[place] 325-5 MG] 1 tab PO BID PRN 08/16/19 15:12 OT Evaluation and Treatment [CONS] Routine 08/16/19 16:00 Cefepime [Maxipime in D5W 1 GM/50 ML] 1 gm Premix Bag 1 bag IV Q24H 08/17/19 11:00 Enoxaparin [Lovenox] 30 mg SUBCUT Q24H 08/17/19 14:00 Furosemide [Lasix] 20 mg IVPUSH ONETIME ONE 08/17/19 16:00 Vancomycin 1 gm Vancomycin 250 mg Sodium Chloride 0.9% [Normal Saline] 250 ml IV Q48H - Plan Plan:: Assessment * Right lower lobe pneumonia * Chest x-ray confirmed right lower lobe pneumonia * Hemodynamically stable * Back to baseline FiO2, 2 L nasal cannula O2. * MRSA screen + * Cefepime and vancomycin pharmacy to dose. * COPD with acute exacerbation - improving * On baseline O2 of 2 L. * Acute on chronic kidney failure - improving * BUN 89-->83-->77, creatinine 3.5-->2.9--2.4, estimated GFR 12-->15-->19 * CHF * BNP 29,000, likely worsened secondary to renal failure. When she was here in January it was 21,000 and her kidney function was better. * 8 pound weight gain since hospitalization secondary to fluids for prerenal failure * Hyponatremia -resolved * Likely secondary to hypovolemia * Hypertension * Metoprolol, losartan, amlodipine, hydralazine, Lasix, and clonidine at home * Hold hydralazine 2/2 lower BP midmorning after home meds given. * Delirium on dementia - improved * Back to baseline Plan * Admit to medical floor on telemetry * Stop IV fluids * Strict I's and O's * Continue Cefepime and Vancomycin * Hold hydralazine * Echocardiogram - pending results * DuoNeb every 6 hours * Albuterol every 2 hours as needed * Change Solu-Medrol 40 mg IV every 8 hours to prednisone 40 mg in the morning * Lasix 40 mg IV this afternoon. * Mucinex 600 mg every 12 hours * Incentive spirometry and Acapella * FiO2 to keep SPO2 greater than 90%. * BMP in the morning * VTE prophylaxis: Lovenox 30 mg daily * CODE STATUS: DNR/DNI * Anticipated length of stay 4 days * Patient has a very poor prognosis secondary to multiple acute on chronic conditions. She was unable to adequately confirm DNR status, but her daughter, who is the POA, confirmed her desires to be DNR/DNI. They understand the severity of their mother's illness and her poor prognosis.
[2019-08-17] MEDS: Enoxaparin 30 MG/0.3 ML Syringe SUBCUT SCH (11:17)
[2019-08-17] MEDS: Acetaminophen 325 MG Tab PO PRN (12:24)
[2019-08-17] MEDS ORDERED: Furosemide 20 MG/2 ML VIAL IVPUSH ONE (14:00)
[2019-08-17] MEDS ORDERED: Furosemide 40 MG/4 ML VIAL IVPUSH ONE (14:00)
[2019-08-17] MEDS ORDERED: Vancomycin 1 GM, Vancomycin 250 MG in Sodium Chloride 0.9% 250 ML IV SCH (16:00)
[2019-08-17] MEDS: Cefepime 1 GM in Premix Bag 1 BAG IV SCH (16:08)
[2019-08-17] MEDS: Sertraline 50 MG Tab PO SCH (20:30)
[2019-08-17] MEDS: Doxazosin 2 MG Tab PO SCH (20:31)
[2019-08-17] MEDS: Mirtazapine 15 MG Tab PO SCH (20:32)
[2019-08-17] MEDS: Gabapentin 600 MG Tab PO SCH (20:32)
[2019-08-17] MEDS: traZODone 50 MG Tab PO SCH (20:32)
[2019-08-18] MEDS: Albuterol/Ipratropium 3.0-0.5 MG/3 ML Neb Soln NEB SCH ×4 (02:56→20:03)
[2019-08-18] MEDS: methylPREDNISolone Sodium Succinate 40 MG/1 ML SDV IVPUSH SCH ×3 (04:19→20:20)
[2019-08-18] MEDS: Pantoprazole 40 MG Tab.CR PO SCH (06:39)
[2019-08-18] MEDS: Levothyroxine 50 MCG Tab PO SCH (06:40)
[2019-08-18] MEDS: Oxybutynin 5 MG Tab PO SCH (08:29)
[2019-08-18] MEDS: Polyethylene Glycol 3350 Powder 17 GM Packet PO SCH (08:29)
[2019-08-18] MEDS: guaiFENesin 600 MG Tab.ER PO SCH ×2 (08:30→20:22)
[2019-08-18] MEDS: cloNIDine 0.1 MG Tab PO SCH ×2 (08:30→20:22)
[2019-08-18] MEDS: Losartan 25 MG Tab PO SCH (08:30)
[2019-08-18] MEDS: Sennosides 8.6 MG Tab PO SCH ×2 (08:31→20:21)
[2019-08-18] MEDS: Metoprolol Succinate 25 MG Tab.ER PO SCH (08:31)
[2019-08-18] MEDS: amLODIPine 5 MG Tab PO SCH (08:31)
[2019-08-18] MEDS: Furosemide 40 MG Tab PO SCH (08:31)
[2019-08-18] MEDS: Sodium Chloride 0.65% Nasal Spray 45 ML Bottle NAS SCH ×4 (08:35→20:20)
[2019-08-18] MEDS: Nystatin Topical Powder 15 GM Bottle TOP SCH ×4 (08:35→20:20)
[2019-08-18] MEDS: Acetaminophen 325 MG Tab PO PRN ×2 (10:23→15:31)
[2019-08-18] MEDS: Enoxaparin 30 MG/0.3 ML Syringe SUBCUT SCH (10:24)
--- NOTE | 2019-08-18 14:05 | PCM.PN ---
- General Info Date of Service: 08/18/19 Subjective Update: No reports from nursing Tolerating diet Ambulating with assistance - Patient Data Vitals - Most Recent: Last Vital Signs Temp 97.7 F 08/18/19 11:11 Pulse 64 08/18/19 11:11 Resp 16 08/18/19 11:11 BP 129/69 08/18/19 11:11 Pulse Ox 96 08/18/19 11:11 Weight - Most Recent: 90.356 kg - Exam Physical Findings Comments:: General: Alert, Oriented HEENT: Pupils Equal, Mucous Membr. Moist/[place] Neck: Supple Lungs: Normal Respiratory Effort, Crackles (And basis) Cardiovascular: Irregular Rhythm (Rate controlled) GI/Abdominal Exam: Normal Bowel Sounds, Soft, Non-Tender, No Distention Extremities: Normal Inspection, Normal Range of Motion, Non-Tender, Pedal Edema (2+ pitting edema) Skin: Warm, Dry, Intact Neurological: No New Focal Deficit Psy/Mental Status: Alert, Normal Affect, Normal Mood Sepsis Event Note - Evaluation Sepsis Screening Result: No Definite Risk - Focused Exam Vital Signs: Vital Signs Temp Pulse Resp BP Pulse Ox Pulse Ox 08/18/19 11:11 97.7 F 64 16 129/69 96 08/18/19 08:31 71 130/58 L 08/18/19 08:30 130/58 L 08/18/19 08:28 98.4 F 71 16 130/58 L 97 08/18/19 08:07 95 08/18/19 04:14 97.9 F 72 18 131/83 95 08/18/19 02:58 98 Date Exam was Performed: 08/19/19 Time Exam was Performed: 08:31 - Problem List & Annotations (1) Right lower lobe pneumonia SNOMED Code(s): 778981073 Code(s): J18.9 - PNEUMONIA, UNSPECIFIED ORGANISM Status: Acute Current Visit: Yes (2) Hypertension SNOMED Code(s): 65019203 Code(s): I10 - ESSENTIAL (PRIMARY) HYPERTENSION Status: Chronic Priority : Low Current Visit: No Onset Date: 10/20/15 Qualifiers: Hypertension type: essential hypertension Qualified Code(s): I10 - Essential (primary) hypertension Annotation/Comment:: - Fairly stable - Continue BP meds - Monitor fluid and salt intake (3) Chronic kidney disease (CKD), stage IV (severe) SNOMED Code(s): 828011283 Code(s): N18.4 - CHRONIC KIDNEY DISEASE, STAGE 4 (SEVERE) Status: Acute Current Visit: Yes (4) COPD (chronic obstructive pulmonary disease) SNOMED Code(s): 48100415 Code(s): J44.9 - CHRONIC OBSTRUCTIVE PULMONARY DISEASE, UNSPECIFIED Status : Acute Current Visit: Yes (5) Dementia SNOMED Code(s): 79660437 Code(s): F03.90 - UNSPECIFIED DEMENTIA WITHOUT BEHAVIORAL DISTURBANCE Status: Acute Current Visit: Yes (6) Dyslipidemia SNOMED Code(s): 917456544 Code(s): E78.5 - HYPERLIPIDEMIA, UNSPECIFIED Status: Acute Current Visit : Yes (7) Normocytic hypochromic anemia SNOMED Code(s): 76164087 Code(s): D50.9 - IRON DEFICIENCY ANEMIA, UNSPECIFIED Status: Acute Current Visit: Yes (8) Acute and chronic respiratory failure with hypoxia SNOMED Code(s): 93331867, 626277289 Code(s): J96.21 - ACUTE AND CHRONIC RESPIRATORY FAILURE WITH HYPOXIA Status : Chronic Priority: High Current Visit: No Onset Date: 10/19/15 Annotation/Comment:: - 2/2 Mycoplasma pneumoniae - O2 sat dropped to low 80s overnight- likley from oversedation (restoril, gabapentin and trazodone) - Supplemental O2, RT care, Decongestant/Expectorant, IS and Flutter Valve - Patient has chronic CO2 retention; I suspect she has undiagnosed KELLEE - Screen for KELLEE with STOP BANG (9) Acute renal failure SNOMED Code(s): 47780498 Code(s): N17.9 - ACUTE KIDNEY FAILURE, UNSPECIFIED Status: Resolved Priority: High Current Visit: No Qualifiers: Acute renal failure type: unspecified Qualified Code(s): N17.9 - Acute kidney failure, unspecified (10) Diabetes SNOMED Code(s): 56265996 Code(s): E11.9 - TYPE 2 DIABETES MELLITUS WITHOUT COMPLICATIONS Status: Chronic Priority: Medium Current Visit: No Qualifiers: Diabetes mellitus type: type 2 Diabetes mellitus assisted insulin use: unspecified assisted insulin use status Diabetes mellitus complication status : without complication Qualified Code(s): E11.9 - Type 2 diabetes mellitus without complications (11) Hypertension SNOMED Code(s): 99187863 Code(s): I10 - ESSENTIAL (PRIMARY) HYPERTENSION Status: Chronic Current Visit: No Qualifiers: Hypertension type: other secondary hypertension Qualified Code(s): I15.8 - Other secondary hypertension (12) Coronary artery disease SNOMED Code(s): 18331358 Code(s): I25.10 - ATHSCL HEART DISEASE OF [place] CORONARY ARTERY W/O ANG PCTRS Status: Acute Current Visit: Yes (13) Depression SNOMED Code(s): 13163648 Code(s): F32.9 - MAJOR DEPRESSIVE DISORDER, SINGLE EPISODE, UNSPECIFIED Status: Acute Current Visit: Yes (14) Hypoalbuminemia SNOMED Code(s): 363392349 Code(s): E88.09 - OTH DISORDERS OF PLASMA-PROTEIN METABOLISM, NEC Status: Acute Current Visit: Yes (15) Severe pulmonary arterial systolic hypertension SNOMED Code(s): 60098300 Code(s): I27.21 - SECONDARY PULMONARY ARTERIAL HYPERTENSION Status: Acute Current Visit: Yes (16) Diastolic heart failure SNOMED Code(s): 613585228 Code(s): I50.30 - UNSPECIFIED DIASTOLIC (CONGESTIVE) HEART FAILURE Status: Acute Current Visit: Yes - Problem List Review Problem List Initiated/Reviewed/Updated: Yes - Plan Plan:: Right lower lobe pneumonia Acute and chronic respiratory failure with hypoxia COPD (chronic obstructive pulmonary disease) Admitted for RLL pneumonia on Cefepime and vancomycin due to MRSA + and detention patient Home O2 at 2L PLAN - Discontinue Cefepime - Last dose of vancomycin tomorrow Acute renal failure, improving Chronic kidney disease (CKD), stage IV (severe) Normocytic hypochromic anemia Urine output is adequate No signs of blood loss or hemodynamic instability PLAN - Monitor urine output - Renally dosed medications - Avoid nephrotoxic medications Diastolic heart failure Severe pulmonary arterial systolic hypertension, RVSP 106 Poorly controlled hypertension Coronary artery disease Dyslipidemia BP poorly controlled Likely confounding shortness of breath BP trend 104-131/58-86 Home management with metoprolol succinate, amlodipine, clonidine, hydralazine PLAN - Continue meds - PRN hydralazine - Monitor BP Dementia Depression No agitation episodes CODE STATUS: DNR/DNI PROPHYLAXIS: DVT-TEDs GI- not indicated DISPOSITION: Patient admitted with IV antibiotics to cover for RLL, clinically improved, will finish antibiotics in the AM. Discharge tomorrow.
[2019-08-18] MEDS ORDERED: Simethicone 80 MG Tab.Chew PO PRN (15:19)
[2019-08-18] MEDS: Doxazosin 2 MG Tab PO SCH (20:21)
[2019-08-18] MEDS: traZODone 50 MG Tab PO SCH (20:21)
[2019-08-18] MEDS: Sertraline 50 MG Tab PO SCH (20:21)
[2019-08-18] MEDS: Gabapentin 600 MG Tab PO SCH (20:22)
[2019-08-18] MEDS: Mirtazapine 15 MG Tab PO SCH (20:22)
[2019-08-19] MEDS: Albuterol/Ipratropium 3.0-0.5 MG/3 ML Neb Soln NEB SCH ×2 (03:22→08:31)
[2019-08-19] MEDS: methylPREDNISolone Sodium Succinate 40 MG/1 ML SDV IVPUSH SCH ×2 (04:12→11:48)
[2019-08-19] MEDS: Pantoprazole 40 MG Tab.CR PO SCH (06:07)
[2019-08-19] MEDS: Levothyroxine 50 MCG Tab PO SCH (06:07)
[2019-08-19] MEDS: Furosemide 40 MG Tab PO SCH (09:14)
[2019-08-19] MEDS: Polyethylene Glycol 3350 Powder 17 GM Packet PO SCH (09:14)
[2019-08-19] MEDS: Oxybutynin 5 MG Tab PO SCH (09:14)
[2019-08-19] MEDS: Acetaminophen 325 MG Tab PO PRN (09:15)
--- NOTE | 2019-08-19 09:15 | PCM.DCSUM1 ---
Discharge Summary - Hospital Course HPI Initial Comments: 84-year-old female with history of COPD on 2 L O2 at the retirement, congestive heart failure, chronic renal insufficiency, hypertension presents to the emergency room with progressive confusion and weakness over the last week. Patient is a poor historian with underlying dementia who resides at [facility]. Patient's daughters are available but give limited history. Other than complaints of shaking for a week and a cough that is worsening she has no other complaints. Diagnosis: Stroke: No - Discharge Data Discharge Date: 08/19/19 Discharge Disposition: DC/Tfer to SNF 03 Condition: Stable - Referral to Home Health Primary Care Physician: Mihaela Pittman MD - Discharge Diagnosis/Problem(s) (1) Right lower lobe pneumonia SNOMED Code(s): 770918384 ICD Code: J18.9 - PNEUMONIA, UNSPECIFIED ORGANISM Status: Acute Current Visit: Yes (2) Hypertension SNOMED Code(s): 50389007 ICD Code: I10 - ESSENTIAL (PRIMARY) HYPERTENSION Status: Chronic Priority : Low Current Visit: No Onset Date: 10/20/15 Problem Details: - Fairly stable - Continue BP meds - Monitor fluid and salt intake Qualifiers: Hypertension type: essential hypertension Qualified Code(s): I10 - Essential (primary) hypertension (3) Chronic kidney disease (CKD), stage IV (severe) SNOMED Code(s): 610261364 ICD Code: N18.4 - CHRONIC KIDNEY DISEASE, STAGE 4 (SEVERE) Status: Acute Current Visit: Yes (4) COPD (chronic obstructive pulmonary disease) SNOMED Code(s): 05577016 ICD Code: J44.9 - CHRONIC OBSTRUCTIVE PULMONARY DISEASE, UNSPECIFIED Status : Acute Current Visit: Yes (5) Dementia SNOMED Code(s): 33018998 ICD Code: F03.90 - UNSPECIFIED DEMENTIA WITHOUT BEHAVIORAL DISTURBANCE Status: Acute Current Visit: Yes (6) Dyslipidemia SNOMED Code(s): 820270836 ICD Code: E78.5 - HYPERLIPIDEMIA, UNSPECIFIED Status: Acute Current Visit : Yes (7) Normocytic hypochromic anemia SNOMED Code(s): 34383751 ICD Code: D50.9 - IRON DEFICIENCY ANEMIA, UNSPECIFIED Status: Acute Current Visit: Yes (8) Acute and chronic respiratory failure with hypoxia SNOMED Code(s): 27706813, 875296162 ICD Code: J96.21 - ACUTE AND CHRONIC RESPIRATORY FAILURE WITH HYPOXIA Status: Chronic Priority: High Current Visit: No Onset Date: 10/19/15 Problem Details: - 2/2 Mycoplasma pneumoniae - O2 sat dropped to low 80s overnight- likley from oversedation (restoril, gabapentin and trazodone) - Supplemental O2, RT care, Decongestant/Expectorant, IS and Flutter Valve - Patient has chronic CO2 retention; I suspect she has undiagnosed KELLEE - Screen for KELLEE with STOP BANG (9) Diabetes SNOMED Code(s): 78564452 ICD Code: E11.9 - TYPE 2 DIABETES MELLITUS WITHOUT COMPLICATIONS Status: Chronic Priority: Medium Current Visit: No Qualifiers: Diabetes mellitus type: type 2 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 insulin use: unspecified residential insulin use status Diabetes mellitus complication status : without complication Qualified Code(s): E11.9 - Type 2 diabetes mellitus without complications (10) Hypertension SNOMED Code(s): 78526744 ICD Code: I10 - ESSENTIAL (PRIMARY) HYPERTENSION Status: Chronic Current Visit: No Qualifiers: Hypertension type: other secondary hypertension Qualified Code(s): I15.8 - Other secondary hypertension (11) Coronary artery disease SNOMED Code(s): 16617603 ICD Code: I25.10 - ATHSCL HEART DISEASE OF [place] CORONARY ARTERY W/O ANG PCTRS Status: Acute Current Visit: Yes (12) Depression SNOMED Code(s): 77585898 ICD Code: F32.9 - MAJOR DEPRESSIVE DISORDER, SINGLE EPISODE, UNSPECIFIED Status: Acute Current Visit: Yes (13) Hypoalbuminemia SNOMED Code(s): 256419105 ICD Code: E88.09 - OTH DISORDERS OF PLASMA-PROTEIN METABOLISM, NEC Status: Acute Current Visit: Yes (14) Severe pulmonary arterial systolic hypertension SNOMED Code(s): 59940820 ICD Code: I27.21 - SECONDARY PULMONARY ARTERIAL HYPERTENSION Status: Acute Current Visit: Yes (15) Diastolic heart failure SNOMED Code(s): 997459670 ICD Code: I50.30 - UNSPECIFIED DIASTOLIC (CONGESTIVE) HEART FAILURE Status : Acute Current Visit: Yes - Patient Summary/Data Consults: Consultations 08/15/19 19:03 PT Evaluation and Treatment [CONS] Routine 08/16/19 15:12 OT Evaluation and Treatment [CONS] Routine Hospital Course: Patient admitted on antibiotics for coverage for HAP. Vancomycin continued due to + MRSA swab. Afebrile for > 48h, leukocytosis resolved Completed 7 days of Vancomycin, due to kidney function 3 doses of vancomycin. Last dose today Respiratory saleem patient is back at baseline - Discharge Plan *PRESCRIPTION DRUG MONITORING PROGRAM REVIEWED*: No *COPY OF PRESCRIPTION DRUG MONITORING REPORT IN PATIENT GOMEZ: No Prescriptions/Med Rec: Nystatin [Nystop] 5 gm TOP QID #7 bottle Home Medications: Home Meds Levothyroxine [Synthroid] 100 mcg PO DAILY 10/19/15 [History] Furosemide [Lasix] 40 mg PO DAILY 01/09/17 [History] Omeprazole 20 mg PO DAILY 01/09/17 [History] Loperamide HCl [Imodium A-D] 2 - 4 mg PO ASDIRECTED PRN 07/25/17 [History] Metoprolol Succinate 25 mg PO DAILY 07/25/17 [History] Mirtazapine 7.5 mg PO BEDTIME 07/25/17 [History] Sertraline [Zoloft] 75 mg PO BEDTIME 07/25/17 [History] traZODone 150 mg PO BEDTIME 07/25/17 [History] Acetaminophen 650 mg PO Q4H PRN 01/18/19 [History] Acetaminophen [Tylenol] 650 mg PO BEDTIME 01/18/19 [History] Albuterol/Ipratropium [DuoNeb 3.0-0.5 MG/3 ML] 3 ml NEB ONCALL PRN 01/18/19 [ History] Doxazosin Mesylate [Cardura] 2 mg PO BEDTIME 01/18/19 [History] Elmiron 100 mg PO TIDMEALS 01/18/19 [History] Gabapentin [Neurontin] 600 mg PO BEDTIME 01/18/19 [History] Lactobacillus Acidophilus [Acidophilus] 2 cap PO BID 01/18/19 [History] Losartan [Cozaar] 50 mg PO DAILY 01/18/19 [History] Sennosides [Senna] 8.6 mg PO BID 01/18/19 [History] Vit C/E/Zn/Coppr/Lutein/Zeaxan [Preservision Areds 2 Softgel] 1 cap PO DAILY 03/01 [History] amLODIPine [Norvasc] 7.5 mg PO DAILY 01/18/19 [History] cloNIDine HCl [Catapres] 0.2 mg PO BEDTIME 01/18/19 [History] cloNIDine [Catapres] 0.1 mg PO QAM 01/18/19 [History] polyethylene glycoL 3350 [MiraLAX] 17 gm PO DAILY 01/18/19 [History] Allopurinol [Zyloprim] 100 mg PO DAILY 08/15/19 [History] Bacitracin [Bacitracin Oint] 1 applic TOP BID 08/15/19 [History] Calcium Carbonate [Tums] 500 mg PO Q6H PRN 08/15/19 [History] [place] Starch/Kaolin/Zinc Oxide [Gold Cr Medicated Baby Powd] 1 applic TOP BID 08/15/19 [History] Ferrous Sulfate 325 mg PO DAILY 08/15/19 [History] Hydrocodone/Acetaminophen [Hydrocodon-Acetaminophen 5-325] 5 - 325 mg PO BID 09/02 [History] Oxybutynin Chloride 5 mg PO DAILY 08/15/19 [History] Sodium Chloride [Saline Nasal Protem] 2 spray WILFRED QID 08/15/19 [History] Suppository Container, Empty [Suppository Box] 1 supp RECTAL DAILY PRN 08/15/19 [History] hydrALAZINE [Apresoline] 20 mg PO TID 08/15/19 [History] Nystatin [Nystop] 5 gm TOP QID #7 bottle 08/19/19 [Rx] Oxygen Therapy Mode: Nasal Cannula Patient Handouts: Sepsis, Adult, Heart Failure Referrals: Mihaela Pittman MD [Primary Care Provider] - (Please follow up with Dr. Pittman on ) - Discharge Summary/Plan Comment DC Time >30 min.: Yes - General Info Date of Service: 08/19/19 Subjective Update: Tolerating diet Ambulating with assistance Slept OK - Patient Data Vitals - Most Recent: Last Vital Signs Temp 97.3 F 08/19/19 04:10 Pulse 68 08/19/19 04:10 Resp 15 08/19/19 04:10 BP 115/79 08/19/19 04:10 Pulse Ox 93 L 08/19/19 08:32 Weight - Most Recent: 90.356 kg - Exam Physical Findings Comments:: General: Alert, Oriented HEENT: Pupils Equal, Mucous Membr. Moist/[place] Neck: Supple Lungs: Normal Respiratory Effort, Crackles (And basis) Cardiovascular: Irregular Rhythm (Rate controlled) GI/Abdominal Exam: Normal Bowel Sounds, Soft, Non-Tender, No Distention Extremities: Normal Inspection, Normal Range of Motion, Non-Tender, Pedal Edema (2+ pitting edema) Skin: Warm, Dry, Intact Neurological: No New Focal Deficit Psy/Mental Status: Alert, Normal Affect, Normal Mood
[2019-08-19] MEDS: amLODIPine 5 MG Tab PO SCH (09:16)
[2019-08-19] MEDS: cloNIDine 0.1 MG Tab PO SCH (09:18)
[2019-08-19] MEDS: Metoprolol Succinate 25 MG Tab.ER PO SCH (09:18)
[2019-08-19] MEDS: Sennosides 8.6 MG Tab PO SCH (09:19)
[2019-08-19] MEDS: Losartan 25 MG Tab PO SCH (09:19)
[2019-08-19] MEDS: Nystatin Topical Powder 15 GM Bottle TOP SCH (09:19)
[2019-08-19] MEDS: guaiFENesin 600 MG Tab.ER PO SCH (09:19)
[2019-08-19] MEDS: Sodium Chloride 0.65% Nasal Spray 45 ML Bottle NAS SCH (09:20)
[2019-08-19] MEDS: Enoxaparin 30 MG/0.3 ML Syringe SUBCUT SCH (10:49)
[2019-08-19] MEDS ORDERED: Vancomycin 1 GM, Vancomycin 250 MG in Sodium Chloride 0.9% 250 ML IV SCH (11:30)
[2019-08-19 12:49] VITALS: BP 131/74; PULSE 63
[2019-08-20] MEDS ORDERED: Levothyroxine 100 MCG Tab PO SCH (06:00)
== END 2019-08-19 13:15 | DRG 682 ==
LOC: JD.ED 13:23 → JD.MS 18:06
PROVIDERS: ADMIT Family Medicine; ATTEND Family Medicine
DX: N17.9 Acute kidney failure, unspecified (principal); J96.21 Acute and chronic respiratory failure with hypoxia; W19.XXXA Unspecified fall, initial encounter; I50.31 Acute diastolic (congestive) heart failure; N18.9 Chronic kidney disease, unspecified; I50.9 Heart failure, unspecified; J18.9 Pneumonia, unspecified organism; I13.0 Hypertensive heart and chronic kidney disease with heart failure and stage 1 through stage 4 chronic kidney disease, or unspecified chronic kidney disease; J44.0 Chronic obstructive pulmonary disease with (acute) lower respiratory infection; J44.1 Chronic obstructive pulmonary disease with (acute) exacerbation; J44.9 Chronic obstructive pulmonary disease, unspecified; Z86.711 Personal history of pulmonary embolism; E87.1 Hypo-osmolality and hyponatremia; K58.9 Irritable bowel syndrome, unspecified; R32 Unspecified urinary incontinence; I50.30 Unspecified diastolic (congestive) heart failure; Z68.42 Body mass index [BMI] 45.0-49.9, adult; N18.4 Chronic kidney disease, stage 4 (severe); F03.90 Unspecified dementia, unspecified severity, without behavioral disturbance, psychotic disturbance, mood disturbance, and anxiety; E78.00 Pure hypercholesterolemia, unspecified; I25.10 Atherosclerotic heart disease of native coronary artery without angina pectoris; H35.30 Unspecified macular degeneration; K21.9 Gastro-esophageal reflux disease without esophagitis; Z66 Do not resuscitate; R41.0 Disorientation, unspecified; Z96.659 Presence of unspecified artificial knee joint; Z79.890 Hormone replacement therapy; Z96.649 Presence of unspecified artificial hip joint; E78.5 Hyperlipidemia, unspecified; E86.1 Hypovolemia; B96.0 Mycoplasma pneumoniae [M. pneumoniae] as the cause of diseases classified elsewhere; D50.9 Iron deficiency anemia, unspecified; I27.21 Secondary pulmonary arterial hypertension; M19.90 Unspecified osteoarthritis, unspecified site; F41.9 Anxiety disorder, unspecified; F32.9 Major depressive disorder, single episode, unspecified; S09.90XA Unspecified injury of head, initial encounter; X58.XXXA Exposure to other specified factors, initial encounter; E11.22 Type 2 diabetes mellitus with diabetic chronic kidney disease; E66.9 Obesity, unspecified; E03.9 Hypothyroidism, unspecified; Z90.89 Acquired absence of other organs; Z90.49 Acquired absence of other specified parts of digestive tract; Z90.710 Acquired absence of both cervix and uterus; Z88.0 Allergy status to penicillin; Z88.1 Allergy status to other antibiotic agents; Z88.8 Allergy status to other drugs, medicaments and biological substances; Z88.2 Allergy status to sulfonamides; Z79.51 Long term (current) use of inhaled steroids; Z79.899 Other long term (current) drug therapy; Z90.721 Acquired absence of ovaries, unilateral; Z90.79 Acquired absence of other genital organ(s); Z98.49 Cataract extraction status, unspecified eye; Z99.81 Dependence on supplemental oxygen
CPT/HCPCS: 36415; 70450; 71045; 80053; 81003; 83605; 83880; 84484; 85025; 87040 ×2; 87804 ×2; 96365; 96367; 99285; J0692; J3370; J7030; J7050; 80048; 83735; 87641; 93306; 94640; 94667; 94668; 94760; 94761; 97110-GP; 97112-GP; 97116-GP; 97162-GP; 97165-GO; 97530-GP; 97535-GO; 99222; 99231; 99239; 99284; A9270-GY; J1650; J1940; J2405; J2920; J7620-GY

== ENCOUNTER 2020-04-28 07:41 | Emergency (ER) | payer MEDICARE, BC ==
[2020-04-28] MEDS ORDERED: Sodium Chloride 0.9% 10 ML Syringe FLUSH PRN (08:04)
[2020-04-28] MEDS ORDERED: Lidocaine 1% with EPINEPHrine 1:100,000 10 ML MDV INJECT ONE (08:26)
--- NOTE | 2020-04-28 09:13 | EDM.PDOC ---
ED HPI GENERAL MEDICAL PROBLEM - General Chief Complaint: Head Injury Stated Complaint: [facility] Time Seen by Provider: 04/28/20 07:59 Source of Information: Reports: Patient History Limitations: Reports: No Limitations - History of Present Illness INITIAL COMMENTS - FREE TEXT/NARRATIVE: The patient presents by [facility] from [facility]. She was being helped to the bathroom and she fell and hit her head. She had no LOC but she does have a large laceration to the back of her head. She also has some neck pain and generalizes abdominal pain. When she was being moved to and from cot to bed she noticed left hip pain. She is not on any blood thinners. She has no chest pain or shortness of breath. [facility]. She was recently tested for COVID 19 and she was negative. She has no fever, chills, cough, congestion, runny nose, chest pain or shortness of breath. She has no dysuria. Onset: Sudden Duration: Minutes: Location: Reports: Head, Neck, Abdomen, Lower Extremity, Left (hip) Quality: Reports: Sharp Severity: Moderate Improves with: Reports: Immobilization Worsens with: Reports: Movement Associated Symptoms: Reports: Headaches. Denies: Chest Pain, Cough, Fever/Chills, Nausea/Vomiting, Shortness of Breath Head Pain Score (Numeric/FACES): 10 - Related Data Allergies Allergy/AdvReac Type Severity Reaction Status Date / Time amoxicillin AdvReac Nausea and Verified 04/28/20 07:48 Vomiting amoxicillin trihydrate AdvReac Nausea and Verified 04/28/20 07:48 [From Augmentin] Vomiting ciprofloxacin AdvReac Nausea and Verified 04/28/20 07:48 Vomiting potassium clavulanate AdvReac Nausea and Verified 04/28/20 07:48 [From Augmentin] Vomiting Sulfa (Sulfonamide AdvReac Nausea and Verified 04/28/20 07:48 Antibiotics) Vomiting Home Meds: Home Meds Levothyroxine [Synthroid] 100 mcg PO DAILY 10/19/15 [History] Furosemide [Lasix] 40 mg PO DAILY 01/09/17 [History] Omeprazole 20 mg PO DAILY 01/09/17 [History] Loperamide HCl [Imodium A-D] 2 - 4 mg PO ASDIRECTED PRN 07/25/17 [History] Metoprolol Succinate 25 mg PO DAILY 07/25/17 [History] Mirtazapine 7.5 mg PO BEDTIME 07/25/17 [History] Sertraline [Zoloft] 75 mg PO BEDTIME 07/25/17 [History] traZODone 150 mg PO BEDTIME 07/25/17 [History] Acetaminophen 650 mg PO Q4H PRN 01/18/19 [History] Acetaminophen [Tylenol] 650 mg PO BEDTIME 01/18/19 [History] Albuterol/Ipratropium [DuoNeb 3.0-0.5 MG/3 ML] 3 ml NEB ONCALL PRN 01/18/19 [History] Doxazosin Mesylate [Cardura] 2 mg PO BEDTIME 01/18/19 [History] Elmiron 100 mg PO TIDMEALS 01/18/19 [History] Gabapentin [Neurontin] 600 mg PO BEDTIME 01/18/19 [History] Lactobacillus Acidophilus [Acidophilus] 2 cap PO BID 01/18/19 [History] Losartan [Cozaar] 50 mg PO DAILY 01/18/19 [History] Sennosides [Senna] 8.6 mg PO BID 01/18/19 [History] Vit C/E/Zn/Coppr/Lutein/Zeaxan [Preservision Areds 2 Softgel] 1 cap PO DAILY 01/18/19 [History] amLODIPine [Norvasc] 7.5 mg PO DAILY 01/18/19 [History] cloNIDine HCL [Catapres] 0.2 mg PO BEDTIME 01/18/19 [History] cloNIDine [Catapres] 0.1 mg PO QAM 01/18/19 [History] polyethylene glycoL 3350 [MiraLAX] 17 gm PO DAILY 01/18/19 [History] Allopurinol [Zyloprim] 100 mg PO DAILY 08/15/19 [History] Bacitracin [Bacitracin Oint] 1 applic TOP BID 08/15/19 [History] Calcium Carbonate [Tums] 500 mg PO Q6H PRN 08/15/19 [History] [place] Starch/Kaolin/Zinc Oxide [Gold Cr Medicated Baby Powd] 1 applic TOP BID 08/15/19 [History] Ferrous Sulfate 325 mg PO DAILY 08/15/19 [History] Hydrocodone/Acetaminophen [Hydrocodone-Acetamin 5-325 mg] 5 - 325 mg PO BID 08/15/19 [History] Oxybutynin Chloride 5 mg PO DAILY 08/15/19 [History] Sodium Chloride [Saline Nasal [place]] 2 spray WILFRED QID 08/15/19 [History] Suppository Container, Empty [Suppository Box] 1 supp RECTAL DAILY PRN 08/15/19 [History] hydrALAZINE [Apresoline] 20 mg PO TID 08/15/19 [History] Nystatin [Nystop] 5 gm TOP QID #7 bottle 08/19/19 [Rx] Past Medical History HEENT History: Reports: Macular Degeneration Cardiovascular History: Reports: Heart Failure, High Cholesterol, Hypertension Other Cardiovascular History: Athrosclerotic heart disease Respiratory History: Reports: COPD, PE Gastrointestinal History: Reports: Colon Polyp, Diverticulosis, Gastritis, GERD, Hemorrhoids, Irritable Bowel Syndrome Other Gastrointestinal History: gastric ulcer, abdominal pain, lapartomy Genitourinary History: Reports: Chronic Renal Insuffiency, Urinary Incontinence, UTI, Recurrent Other Genitourinary History: cystitis; botos injections in the bladder JERKER History: Reports: Other JERKER History: Atrophic vaginitis Musculoskeletal History: Reports: Arthritis, Other (See Below) Other Musculoskeletal History: sciatica- right side Neurological History: Reports: Other (See Below) Other Neuro History: Sciatica Psychiatric History: Reports: Anxiety, Dementia, Depression Endocrine/Metabolic History: Reports: Diabetes, Type II, Hypothyroidism, Obesity/BMI 30+ Hematologic History: Reports: Anemia Dermatologic History: Reports: Seborrheic Dermatitis Other Dermatologic History: Candidas of skin and nails - Infectious Disease History Infectious Disease History: Reports: Rheumatic Fever - Past Surgical History HEENT Surgical History: Reports: Cataract Surgery, Tonsillectomy Cardiovascular Surgical History: Reports: None GI Surgical History: Reports: Appendectomy, Cholecystectomy, Lysis of Adhesions, Adriane Fundoplication Female Surgical History: Reports: Hysterectomy, Salpingo-Oophorectomy Neurological Surgical History: Reports: None Musculoskeletal Surgical History: Reports: Hip Replacement, Knee Replacement Dermatological Surgical History: Reports: None Social & Family History - Family History Family Medical History: Noncontributory Cardiac: Reports: [place], Syncope Other Cardiac Family History: Mother OBGYN: Reports: Endocrine/Metabolic: Reports: Diabetes, type II Oncologic: Reports: Colon - Tobacco Use Tobacco Use Status *Q: Never Tobacco User Second Hand Smoke Exposure: No - Caffeine Use Caffeine Use: Reports: Coffee Other Caffeine Use: hot chocolate - Recreational Drug Use Recreational Drug Use: No - Living Situation & Occupation Living situation: Reports: , with Spouse Occupation: Retired ED ROS GENERAL - Review of Systems Review Of Systems: See Below Constitutional: Reports: No Symptoms HEENT: Reports: No Symptoms Respiratory: Reports: No Symptoms Cardiovascular: Reports: No Symptoms Endocrine: Reports: No Symptoms GI/Abdominal: Reports: Abdominal Pain : Reports: No Symptoms Musculoskeletal: Reports: Neck Pain Neurological: Reports: Headache ED EXAM, HEAD INJURY - Physical Exam Exam: See Below Exam Limited By: No Limitations General Appearance: Alert, No Apparent Distress Head: Other (1 cm laceration to the back of the head) Ears: Normal External Exam Nose: Normal Inspection Neck: Tenderness (mid neck) Respiratory: No Respiratory Distress, Lungs Clear, Normal Breath Sounds Cardiovascular: Regular Rate, Rhythm, No Edema, No Murmur GI/Abdominal Exam: Soft, No Organomegaly, No Mass, Tender (Moderate generalized tenderness) Back Exam: Normal Inspection Extremities: Other (Pain upon palpation to the left hip. Good sensation and pulses distally.) ED LACERATION/WOUND & TY PROC - Laceration/Wound Repair Head Lac/wound length in cm: 1 Appearance: Subcutaneous, Irregular Anesthetic Type: Local Local Anesthesia - Lidocaine (Xylocaine): 1% with EPI Exploration/Debridement/Repair: Wound Explored, In a Bloodless Field, Explored to Base Closed with: Evgeny # of Sutures: 3 Tetanus Status Addressed: Yes Complications: No Course - Vital Signs Last Recorded V/S: Last Vital Signs Temp 97.4 F 04/28/20 07:41 Pulse 62 04/28/20 07:41 Resp 20 04/28/20 07:41 BP 142/61 H 04/28/20 07:41 Pulse Ox 93 L 04/28/20 07:41 - Orders/Labs/Meds Orders: Active Orders 24 hr Category Date Time Status Cardiac Monitoring [RC] . DIRECTED Care 04/28/20 08:04 Active Oxygen Therapy [RC] PRN Care 04/28/20 08:04 Active Peripheral IV Care [RC] . DIRECTED Care 04/28/20 08:05 Active Abdomen Pelvis wo Cont [CT] Stat Exams 04/28/20 08:06 Taken Cervical Spine wo Cont [CT] Stat Exams 04/28/20 08:06 Taken Head wo Cont [CT] Stat Exams 04/28/20 08:05 Taken Sodium Chloride 0.9% [Saline Flush] Med 04/28/20 08:04 Active 10 ml FLUSH ASDIRECTED PRN Peripheral IV Insertion Adult [OM.PC] Stat Oth 04/28/20 08:04 Ordered Medication Orders Sodium Chloride (Saline Flush) 10 ml FLUSH ASDIRECTED PRN PRN Reason: Keep Vein Open Labs: Laboratory Tests 04/28/20 04/28/20 Range/Units 09:10 09:10 WBC 4.24 (3.98-10.04) K/mm3 RBC 3.35 L (3.98-5.22) M/mm3 Hgb 9.5 L (11.2-15.7) gm/dl Hct 32.5 L (34.1-44.9) % MCV 97.0 H D (79.4-94.8) fl MCH 28.4 (25.6-32.2) pg MCHC 29.2 L (32.2-35.5) g/dl RDW Std Deviation 51.2 H (36.4-46.3) fL Plt Count 120 L (182-369) K/mm3 MPV 12.0 (9.4-12.3) fl Neut % (Auto) 64.0 (34.0-71.1) % Lymph % (Auto) 21.0 (19.3-51.7) % Waldo % (Auto) 12.7 H (4.7-12.5) % Eos % (Auto) 1.9 (0.7-5.8) Baso % (Auto) 0.2 (0.1-1.2) % Neut # (Auto) 2.71 (1.56-6.13) K/mm3 Lymph # (Auto) 0.89 L (1.18-3.74) K/mm3 Waldo # (Auto) 0.54 H (0.24-0.36) K/mm3 Eos # (Auto) 0.08 (0.04-0.36) K/mm3 Baso # (Auto) 0.01 (0.01-0.08) K/mm3 Manual Slide Review Abnormal smear Sodium 145 (136-145) mEq/L Potassium 4.4 (3.5-5.1) mEq/L Chloride 104 (98-107) mEq/L Carbon Dioxide 32 (21-32) mEq/L Anion Gap 13.4 (5-15) BUN 46 H D (7-18) mg/dL Creatinine 2.1 H (0.55-1.02) mg/dL Est Cr Clr Drug Dosing 16.30 mL/min Estimated GFR (MDRD) 22 (>60) mL/min BUN/Creatinine Ratio 21.9 H (14-18) Glucose 98 (83-115) mg/dL Calcium 9.4 (8.5-10.1) mg/dL Total Bilirubin 0.4 (0.2-1.0) mg/dL AST 15 (15-37) U/L ALT 16 (14-59) U/L Alkaline Phosphatase 118 H (46-116) U/L Total Protein 6.1 L (6.4-8.2) g/dl Albumin 3.1 L (3.4-5.0) g/dl Globulin 3.0 gm/dL Albumin/Globulin Ratio 1.0 (1-2) Lipase 106 (73-393) U/L Meds: Medications Generic Name Dose Route Start Last Admin Trade Name Freq PRN Reason Stop Dose Admin Sodium Chloride 10 ml 04/28/20 08:04 Saline Flush FLUSH ASDIRECTED PRN Keep Vein Open Discontinued Medications Generic Name Dose Route Start Last Admin Trade Name Freq PRN Reason Stop Dose Admin Lidocaine/Epinephrine 10 ml 04/28/20 08:26 Xylocaine 1% With Epinephrine 1:100,000 INJECT 04/28/20 08:27 ONETIME ONE - Re-Assessments/Exams Free Text/Narrative Re-Assessment/Exam: 04/28/20 09:14 I ordered an IV saline lock, oxygen, labs, CT of her head, cervical spine, abdomen and pelvis. 04/28/20 12:39 CT of the cervical spine shows loss of cervical lordosis. No evidence of fracture of dislocation. Pulmonary opacities associated with pleural effusions and therefore likely edema. CT of her abdomen and pelvis shows no acute findings in the abdomen and pelvis. Slight interval decrease in size of a 3.5cm right adrenal mass with coarse calcifications, likely benign given interval decrease in size. New bilateral pleural effusions and interstitial opacities in the lung bases. The CT of her head shows no evidence of acute intracranial abnormality. No evidence of acute infarction, hemorrhage or mass. Atrophy and mild microvascular disease. Her labs look good. I stapled her head wound. I will discharge her home. Departure - Departure Time of Disposition: 12:45 Disposition: Home, Self-Care 01 Condition: Good Clinical Impression: Fall Qualifiers: Encounter type: initial encounter Qualified Code(s): W19.XXXA - Unspecified fall, initial encounter Scalp laceration Qualifiers: Encounter type: initial encounter Qualified Code(s): S01.01XA - Laceration without foreign body of scalp, initial encounter Contusion of left hip Qualifiers: Encounter type: initial encounter Qualified Code(s): S70.02XA - Contusion of left hip, initial encounter - Discharge Information *PRESCRIPTION DRUG MONITORING PROGRAM REVIEWED*: Not Applicable *COPY OF PRESCRIPTION DRUG MONITORING REPORT IN PATIENT GOMEZ: Not Applicable Referrals: Mihaela Pittman MD [Primary Care Provider] - 1 Week Forms: ED Department Discharge Additional Instructions: Clean the laceration with warm soapy water 2 times per day and apply antibiotic ointment after. Have the evgeny removed within a week. Look for any signs in infection such as redness, swelling, pain or discharge. If you see any of these signs please return or see your doctor. You may need oral antibiotics. Please return if you are worse. Sepsis Event Note (ED) - Evaluation Sepsis Screening Result: No Definite Risk - Focused Exam Vital Signs: Vital Signs Temp Pulse Resp BP Pulse Ox 04/28/20 07:41 97.4 F 62 20 142/61 H 93 L - My Orders Last 24 Hours: My Active Orders 04/28/20 08:04 Cardiac Monitoring [RC] . DIRECTED Oxygen Therapy [RC] PRN Sodium Chloride 0.9% [Saline Flush] 10 ml FLUSH ASDIRECTED PRN Peripheral IV Insertion Adult [OM.PC] Stat 04/28/20 08:05 Peripheral IV Care [RC] . DIRECTED Head wo Cont [CT] Stat 04/28/20 08:06 Abdomen Pelvis wo Cont [CT] Stat Cervical Spine wo Cont [CT] Stat - Assessment/Plan Last 24 Hours: My Active Orders 04/28/20 08:04 Cardiac Monitoring [RC] . DIRECTED Oxygen Therapy [RC] PRN Sodium Chloride 0.9% [Saline Flush] 10 ml FLUSH ASDIRECTED PRN Peripheral IV Insertion Adult [OM.PC] Stat 04/28/20 08:05 Peripheral IV Care [RC] . DIRECTED Head wo Cont [CT] Stat 04/28/20 08:06 Abdomen Pelvis wo Cont [CT] Stat Cervical Spine wo Cont [CT] Stat
[2020-04-28 15:51] VITALS: BP 131/63; PULSE 67
== END 2020-04-28 15:15 | disposition home or self-care (01) ==
LOC: SUPCPDRO 07:41 → JD.ED 07:41
DX: S01.01XA Laceration without foreign body of scalp, initial encounter (principal); S70.02XA Contusion of left hip, initial encounter; I13.0 Hypertensive heart and chronic kidney disease with heart failure and stage 1 through stage 4 chronic kidney disease, or unspecified chronic kidney disease; E11.22 Type 2 diabetes mellitus with diabetic chronic kidney disease; I50.9 Heart failure, unspecified; N18.9 Chronic kidney disease, unspecified; E78.00 Pure hypercholesterolemia, unspecified; J44.9 Chronic obstructive pulmonary disease, unspecified; K21.9 Gastro-esophageal reflux disease without esophagitis; E03.9 Hypothyroidism, unspecified; E66.9 Obesity, unspecified; F41.9 Anxiety disorder, unspecified; F32.9 Major depressive disorder, single episode, unspecified; F03.90 Unspecified dementia, unspecified severity, without behavioral disturbance, psychotic disturbance, mood disturbance, and anxiety; Z88.1 Allergy status to other antibiotic agents; Z88.2 Allergy status to sulfonamides; Z79.899 Other long term (current) drug therapy; Z90.49 Acquired absence of other specified parts of digestive tract; Z90.710 Acquired absence of both cervix and uterus; W01.10XA Fall on same level from slipping, tripping and stumbling with subsequent striking against unspecified object, initial encounter; Y92.121 Bathroom in nursing home as the place of occurrence of the external cause
CPT/HCPCS: 12001; 36415; 70450; 72125; 74176; 80053; 83690; 85025; 99282; 99284-25